=== PATIENT | female | born 1965 | race Caucasian/White ===

== ENCOUNTER 2023-03-13 16:14 | Emergency (ER) | payer OTHER, SELFPAY ==
[2023-03-13 16:20] VITALS: BP 131/83; PULSE 79; RESP 20; TEMP 36.6; O2SAT 99; BMI 21.1
[2023-03-13 16:49] LABS: SARS-CoV-2 Ag NEGATIVE (NEGATIVE)
[2023-03-13 16:50] LABS: Influenza Virus A Antigen Negative; Influenza Virus B Antigen Negative; Internal Control Within Normal Limits
--- NOTE | 2023-03-13 17:25 | ED.GENADUL1 ---
HPI - General Adult General Chief complaint: Upper Respiratory Infection Stated complaint: URTI Time Seen by Provider: 03/13/23 16:34 Source: patient Mode of arrival: walk-in Limitations: no limitations History of Present Illness HPI narrative: Patient with several days of chest congestion following nasal congestion, sore throat, ear fullness and sinus pressure. The patient is a former smoker who has been told that she has early COPD . She is concerned that she has pneumonia - it happens when the infection moves down into my chest. No vomiting or diarrhea. No fever or chills at home. Related Data Previous Rx's Medication Instructions Recorded gdrzqfawtshyrvq-tnqlotudxjiotnq-DL 5 ml PO Q6H PRN sinus symptoms 03/13/23 2 mg-30 mg-10 mg/5 mL oral syrup #118 mL (Bromfed DM) doxycycline hyclate 100 mg capsule 100 mg PO BID 7 days #14 caps 03/13/23 methylprednisolone 4 mg tablets in 4 mg PO DAILY #21 ea 03/13/23 a dose pack (Medrol (Richard)) Allergies Allergy/AdvReac Type Severity Reaction Status Date / Time meperidine [From Demerol] AdvReac Severe Vomiting Verified 03/13/23 16:23 PFSH PFSH Social History Smoking status: Former smoker Exam Narrative Exam Narrative: Nurses notes and vital signs reviewed and patient is not hypoxic. afebrile General: Well-appearing and in no apparent distress. Skin: Warm, dry, no pallor noted. No rash. Head: Normocephalic, atraumatic. Neck: Supple, non-tender. No cervical lymphadenopathy Eye: Pupils are equal, round and EOMI. No scleral icterus. Ears, Nose, Mouth, and Throat: TM are dull bilaterally with retro tympanic fluid, mild posterior oropharynx erythema and nasal mucosal hypertrophy, uvula is mid-line Oral mucosa is moist Cardiovascular: Regular Rate and Rhythm without murmur, gallop or rub. Respiratory: No accessory muscle use or respiratory distress. Lungs with scattered rhonchi but no expiratory wheezes or rails. Neurological: A&O x4. No cranial nerve dysfunction observed. No truncal ataxia. Moves all extremities. Sensation intact. Psychiatric: Cooperative and interactive. Normal mood and affect. Constitutional Vital Signs, click to edit/add: Last Vital Signs Temp 98 F 03/13/23 16:20 Pulse 79 03/13/23 16:20 Resp 20 03/13/23 16:20 BP 131/83 03/13/23 16:20 Pulse Ox 99 03/13/23 16:20 Course Vital Signs Vital signs: Vital Signs Temperature 98 F 03/13/23 16:20 Pulse Rate 79 03/13/23 16:20 Respiratory Rate 20 03/13/23 16:20 Blood Pressure 131/83 03/13/23 16:20 Pulse Oximetry 99 03/13/23 16:20 Temperature 98 F 03/13/23 16:20 Pulse Rate 79 03/13/23 16:20 Respiratory Rate 20 03/13/23 16:20 Blood Pressure 131/83 03/13/23 16:20 Pulse Oximetry 99 03/13/23 16:20 Medical Decision Making MDM Narrative Medical decision making narrative: Swabs were negative for influenza and COVID. She was discharged home with prescriptions for Bromfed-DM, steroid taper and doxycycline, to cover her upper respiratory symptoms and exacerbation of her early COPD/underlying lung disease. Lab Data Lab results reviewed: Yes I reviewed the patient's lab results Labs: Lab Results 03/13/23 Range/Units 16:25 SARS-CoV-2 (PCR) Negative (NEGATIVE) Influenza Type A Ag Negative Influenza Type B Ag Negative Discharge Plan Discharge Chief Complaint: Upper Respiratory Infection Clinical Impression: Upper respiratory infection, Asthma exacerbation in COPD Patient Disposition: Home, Self-Care Time of Disposition Decision: 17:28 Prescriptions / Home Meds: New doxycycline hyclate 100 mg capsule 100 mg PO BID 7 Days Qty: 14 0RF methylprednisolone [Medrol (Richard)] 4 mg tablets,dose pack 4 mg PO DAILY Qty: 21 0RF Rx Instructions: follow instructions on blister pack cvswdimqcjqlkbh-lhupgfdjs-PE [Bromfed DM] 2-30-10 mg/5 mL syrup 5 ml PO Q6H PRN (Reason: sinus symptoms) Qty: 118 0RF Instructions: Upper Respiratory Infection (ED), COPD (Chronic Obstructive Pulmonary Disease) (ED) Stand Alone Forms: Portal Instructions Referrals: SIRI JOHNSON [Primary Care Provider] - 1 week
[2023-03-14 10:20] LABS: SARS-CoV-2 NAA NOT DETECTED (NOT DETECTE)
== END 2023-03-13 17:45 | disposition home or self-care (01) ==
LOC: ER 17:48
PROVIDERS: Emergency Provider Emergency Medicine; PCP Family Medicine
DX: J06.9 Acute upper respiratory infection, unspecified (principal); J44.1 Chronic obstructive pulmonary disease with (acute) exacerbation; Z87.891 Personal history of nicotine dependence; Z20.822 Contact with and (suspected) exposure to COVID-19
CPT/HCPCS: 87635; 87804; 87811; 99284

== ENCOUNTER 2024-09-03 17:32 | Emergency (ER) | payer MEDICARE, MEDICAID, SELFPAY ==
--- OUTSIDE RECORDS SUMMARY | 2021-06-27 06:10 | XMS_ITS | Continuity of Care Document ---
Author [facility] [employer] [facility] Address [address] [place] [address] Phone Care Team Providers Care Food Service Representative Name Role Phone Leatha Chisholm MD, Jonathon Unavailable Unavailab le Allergies, Adverse Reactions, Alerts Substance Reaction Status Criticality No Known Allergies Active No Inform ation Medications Medication Instructions Dosage Effective Dates (start - stop) Status Comments Xarelto 15 mg tablet take 1 tablet by or al route 2 times every day with the evening meal 15 MG - Active oxycodone 10 mg tablet take 1 tablet by oral route every 4 - 6 hours 10 MG - Active amlodipine 5 mg tablet take 1 tablet by oral route every day 5 MG - Active metoprolol succinate ER 25 mg tablet,extended release 24 hr take 1 tablet by oral route every day 25 MG - Active ondansetron 4 mg disintegrating tablet take 2 tablet by oral route every [address] on top of the tongue where they will dissolve, then swallow 8 MG - Active Novolog Flexpen U-100 Insulin aspart 100 unit/mL (3 mL) subcutaneous inject by subcutaneous route per prescriber's instructions. Insulin dosing requires individualization. 0.00 - Active bupropion HCl XL 150 mg 24 hr tablet, extended release take 1 tablet by oral route every day 150 MG - Active fenofibrate 120 mg tablet take 1 tablet by oral route every day 120 MG - Active Procedures Procedure Date OFFICE/OUTPATIENT VISIT, [facility] Advance Directives Directive Yes / No Effective Date File Name No Information Encounters Encounter Description Practice Location Reason(s) For Visit Diagnoses Date Provider Providers Copied on Encounter OFFICE/OUTPAT IENT VISIT, [facility] [employer] [facility], [address] [facility] [place], [place], [id number], tel:[phone] [facility] Post-Op (chief complaint)C omment (chief complaint) 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 [address] [place], [address], [place]. tel:[phone] Referring Provider: [place], [address] [place], [place], [facility]. tel:[phone] Family History Family Member Type Diagnosis Age At Onset No Information Payers Payer name Insurance type Covered alliance party ID Lon caraballo(s) Faisal [id number] Social History Type Description Quantity Date Captured Comments Alcohol Use Details Unknown Caffeine Use Details Unknown Tobacco Use Status Ex-cigarette smoker 022 Smoking Status Former smoker Non-Smoking Tobacco Use Details : No Details Available : No Details Available Sex Female Vital Signs Date / Time: Height Weight [...] and fever. Additional information: had surgery in [place] beginning of May, stent occluded, tPA administered and started on Xarelto. Comment (chief complaint). Description: This is a 55-year-old female who was recently seen and evaluated at [facility]. She underwent stenting of her left SFA and had postoperative thrombosisrequiring thrombolytics therapy. Even after that episode she continued to have significant pain in her left leg and came to [facility]. They obtained a CT scan at that [...] who was recently seen and evaluated at [facility]. She underwent stenting of her left SFA and had postoperative thrombosis requiring thrombolytics therapy. Even after that episode she continued to have significant pain in her left leg and came to [facility]. They obtained a CT scan at that [...] and fever. Additional information: had surgery in [place] beginning of May, stent occluded, tPA administered and started on Xarelto. Functional Status Date Functional Assessmen t Pain Score 10/10 Instructions Date Instruction Additional Infor betty No Information Assessments Type Assessment Date assessment Atherosclerosis of n ative artery of left lower extremity with gangrene impression I am recommending th at she get to admitted to the hospital for further evaluation and plan for a femoral popliteal bypass prior to her discharge. Mental Status Date Cognitive Assessment Orientation - [place] ed to time, place, person, situation. Patient Care Teams Name Effective Dates (start - stop) Status Members No Information
--- OUTSIDE RECORDS SUMMARY | 2024-04-16 09:00 | XMS_ITS ---
Author Organization [facility] Address [address] [place] [address] Care Team Providers Care Nursing Scheduler Name Role Phone Valerie Munoz Primary Care Provider [phone] Sameer Gomez Unavailable [phone] REASON FOR VISIT 3 month f/u Encounters Encounter Location Date Provider Diagnosis [facility] [address] [place] [address] 04/16/2024 Valerie Munoz Plan Of Treatment Next Appt Details Provider Name:Valerie Munoz, 09/15/2024 09:30:00 AM, [address] [place], [address], Provider Name:Sameer garcia, 10/17/2024 01:30:00 PM, [address], [place], [address], Provider Name:Negrita Waters, 01/05/2025 03:30:00 PM, [address], [place], [address], Progress Notes * KHRIS LADD ADOB:[birth year] (58 yo F)Acc No.[id number]:04/16/2024 Behavioral Health Patient: KHRIS WALTER Appointment Provider: Reji Munoz :1965 A ge:58 Y S ex:Female Date:04/16/2024 [address] [id number] Subjective: * Chief Complaints: * 1 . 3 month f/u. * Medical History: Objective: * Vitals: Assessment: Plan: * Treatment: * Images: * Electronic signature of KASIA Harris FNP on 09/03/2024 at 05:37 PM EDT Sign off status: Pending * Appointment Provider: Reji Munoz Date: 0 04/16/2024 Generated for Tenzin queen/Anil/Wilbert on: 0 09/03/2024 05:37 PM EDT
--- OUTSIDE RECORDS SUMMARY | 2024-08-19 13:17 | XMS_ITS | Encounter Summary ---
Author Organization [employer] tem Address [facility] [id number] [address] 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, left leg Procedures Vas art duplex lwr graft scan left Alonso Pizano MD [address] [place] [address] Phone: tel: fax: Referral ID Status Reason Start Date Expiration Date Visits Re quested Visits Authorized [id number] Closed 01/11/2024 01/10/2025 1 1 Reason for Visit * Vascular (Routine) - Closed Specialty Diagnoses / Procedures Referred By Contac t Referred To Contact Diagnoses Critical limb ischemia with history of revascularization of same extremity ([facility]) 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, left leg Procedures Vas art duplex lwr graft scan left Alonso Pizano MD [address] [place] [address] Phone: tel: fax: Referral ID Status Reason Start Date Expiration Date Visits Re quested Visits Authorized [id number] Closed 01/11/2024 01/10/2025 1 1 Encounter Details Date Type Department Care Team (Latest Contact Info) Description 08/19/2024 1:17 PM EDT - 08/19/2024 11:59 PM EDT Hospital Encounter [facility] - Vascular [address] [place] [address] Critical limb ischemia with history of revascularization of same extremity ([facility]); 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 Never True 08/19/2024 Within the past 12 months th e food we bought just didn't last and we didn't have money to get more. Never True 08/19/2024 Comments No Sex and Gender Information Value Date Recorded Sex Assigned at Not on file Legal Sex Female 12:13 PM EDT Gender Identity Not on file Sexual Orientation Not on file documented as of this encounter Medications at Time of Discharge acetaminophen (TYLENOL EXTRA STRENGTH) 500 mg tablet Take 2 tablets (1,000 mg total) by mouth every 6 (six) hours as needed for pain. 30 tablet 2 albuterol (ACCUNEB) 0.63 mg/3 mL nebulizer solution 3 mL (0.63 mg total). AMLODIPINE BESYLATE, BULK, MISC Apply 10 mg to the mouth or throat in the morning. amoxicillin-pot clavulanate (AUGMENTIN) 875-125 mg per tablet Take 1 tablet by mouth every 12 (twelve) hours. 2 aspirin 81 mg chewable tablet CHEW AND SWALLOW 1 TABLET IN THE MORNING 90 tablet 1 4 buPROPion XL (WELLBUTRIN XL) 150 mg 24 hr tablet Take 1 tablet (150 mg total) by mouth. cholecalciferol, vitamin D3, 2,000 units capsule Take 1 capsule (2,000 Units total) by mouth in the morning. cilostazoL (PLETAL) 100 mg tablet Take 1 tablet (100 mg total) by mouth in the morning and 1 tablet (100 mg total) before bedtime. 2 cilostazoL (PLETAL) 50 mg tabletIndications:Keira pheral arterial disease Take 1 tablet (50 mg total) by mouth in the morning and 1 tablet (50 mg total) before bedtime. 60 tablet 3 5 clopidogreL (PLAVIX) 75 mg tabletIndications:Crit ical limb ischemia with history of revascularization of same extremity ([facility]) TAKE 1 TABLET (75 MG TOTAL) BY MOUTH IN THE MORNING 90 tablet 1 5 cyclobenzaprine (FLEXERIL) 10 mg tablet Take 1 tablet (10 mg total) by mouth in the morning and 1 tablet (10 mg total) at noon and 1 tablet (10 mg total) before bedtime. 30 tablet 2 fenofibrate (FENOGLIDE) 120 MG tablet Take by mouth daily. fenofibrate (TRICOR) 145 mg tablet Take 1 tablet (145 mg total) by mouth. fluconazole (DIFLUCAN) 150 mg tablet Take 1 tablet (150 mg total) by mouth once. 2 gabapentin (NEURONTIN) 100 mg capsuleIndications:Cornel ralgia Take 1 capsule (100 mg total) by mouth in the morning and 1 capsule (100 mg total) at noon and 1 capsule (100 mg total) before bedtime. 60 capsule 2 2 ibuprofen (ADVIL,MOTRIN) 600 mg tabletIndications:Post -op pain Take 1 tablet (600 mg total) by mouth every 8 (eight) hours as needed for pain. 30 tablet 2 insulin aspart U-100 (NovoLOG) 100 unit/mL (3 mL) insulin pen Inject under the skin. LORazepam (ATIVAN) 0.5 mg tablet Take 1 tablet (0.5 mg total) by mouth nightly. 2 losartan (COZAAR) 100 mg tablet Take 1 tablet (100 mg total) by mouth in the morning. 2 meloxicam (MOBIC) 15 mg tablet Take 1 tablet (15 mg total) by mouth in the morning. 2 metoprolol succinate XL (TOPROL XL) 25 mg 24 hr tablet Take by mouth daily. metoprolol tartrate (LOPRESSOR) 25 mg tablet Take 0.5 tablets (12.5 mg total) by mouth. naloxone (NARCAN) 4 mg/actuation spray,non-aerosol nasal spray Administer 1 spray (4 mg total) into alternating nostrils as needed for opioid reversal. 1 each 2 naproxen (NAPROSYN) 500 mg tablet Take 500 mg by mouth in the morning and 500 mg before bedtime. 2 NIFEdipine XL (PROCARDIA XL) 30 mg 24 hr tablet Take 1 tablet (30 mg total) by mouth in the morning. 2 nitroglycerin (NITRO-BID) 2 % ointment Place 0.5 inches on the skin. 2 ondansetron ODT (ZOFRAN ODT) 4 mg disintegrating tablet Dissolve on tongue every 12 (twelve) hours. PRALUENT PEN 75 mg/mL pen injector 3 pravastatin (PRAVACHOL) 10 mg tablet Take 10 mg by mouth in the morning. 2 rosuvastatin (CRESTOR) 40 mg tablet Take 1 tablet (40 mg total) by mouth in the morning. 2 sulfamethoxazole-trime thoprim (BACTRIM DS) 800-160 mg per tablet Take 1 tablet by mouth in the morning and 1 tablet before bedtime. 2 varenicline (CHANTIX) 0.5 mg tablet Take 1 tablet (0.5 mg total) by mouth in the morning and 1 tablet (0.5 mg total) before bedtime. documented as of this encounter Plan of Treatment Upcoming Encounters Date Type Department Care Team (Late st Contact Info) Description 09/30/2024 11:30 AM EDT [facility] [address] [place] [address] Alonso Pizano MD [address] [place] [address] 08/19/2025 1:00 PM EDT Appointment [facility] - Vascular [address] [place] [address] Alonso Pizano MD [address] [place] [address] 08/19/2025 2:00 PM EDT Appointment [facility] - Vascular [address] [place] [address] Alonso Pizano MD [address] [place] [address] 09/01/2025 2:00 PM EDT Office Visit [facility] Vascular [address] [place] [address] Alonso Pizano MD [address] [place] [address] documented as of this encounter Goals Goal Patient Goal Type Associated Problems Recent Progress Patient-Stated? 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 Previous lower extremity bypass graft duplex exam performed: 12/07/2023 Spectral waveforms with diastolic flow reversal and no significant color flow disturbance noted throughout the bypass graft. Left: Spectral waveforms with diastolic flow reversal and no significant color flow disturbance noted throughout the bypass graft. Conclusions: LEFT: Lower extremity bypass graft without significant stenosis. Recommendations: Any questions prior to finalization, please call the reading physician during normal business hours at the phone number beside their name. When compared to previous report no significant changes were noted. Procedure Note Rob Briones MD - 08/20/2024 Previous: History of left femoral to popliteal arteyr bypass graft07/14/2021. Previous lower extremity bypass graft duplex exam performed:12/07/2023 Spectral waveforms with diastolic flow reversal and nosignificant color flow disturbance noted throughout the bypass graft. Left: Spectral waveforms with diastolic flow reversal and no significantcolor flow disturbance noted throughout the bypass graft. Conclusions: LEFT: Lower extremity bypass graft without significantstenosis. Recommendations: Any questions prior to finalization, please call thereading physician during normal business hours at the phone number besidetheir name. When compared to previous report no significant changes werenoted. 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
--- OUTSIDE RECORDS SUMMARY | 2024-08-29 14:37 | XMS_ITS | Encounter Summary ---
Author Organization [employer] tem Address [id number] [address] [place] [address] Care Team Providers Care Piece Maker Name Role Phone Chato Bradshaw Primary Care Provider [phone] Reason for Referral * Diagnostic Imaging (Emergency) - Closed Specialty Diagnoses / Procedures Referred By Ponchoac t Referred To Contact Radiology Diagnoses Critical limb ischemia with history of revascularization of same extremity ([facility]) Procedures CT angiogram abdominal aorta with runoff Alonso Pizano MD [address] [place] [address] Phone: tel: fax: Referral ID Status Reason Start Date Expiration Date Visits Re quested Visits Authorized [id number] Closed 08/19/2024 08/19/2025 1 1 Reason for Visit * Diagnostic Imaging (Emergency) - Closed Specialty Diagnoses / Procedures Referred By Contac t Referred To Contact Radiology Diagnoses Critical limb ischemia with history of revascularization of same extremity ([facility]) Procedures CT angiogram abdominal aorta with runoff Alonso Pizano MD [address] [place] [address] Phone: tel: fax: Referral ID Status Reason Start Date Expiration Date Visits Re quested Visits Authorized [id number] Closed 08/19/2024 08/19/2025 1 1 Encounter Details Date Type Department Care Team (Latest Contact Info) Description 08/29/2024 2:37 PM EDT - 08/29/2024 11:59 PM EDT Hospital Encounter [facility] - CT Imaging [address] [place] [address] Alonso Pizano MD [address] [place] [address] Critical limb ischemia with history of revascularization of same extremity ([facility]) Discharge Disposition: Home Social History Tobacco Use [...] with history of revascularization of same extremity ([facility]) TAKE 1 TABLET (75 MG TOTAL) [...] Description 09/30/2024 11:30 AM EDT Office Visit [facility] [address] [place] [address] Alonso Pizano MD [address] [place] [address] 08/19/2025 1:00 PM EDT Appointment [facility] - Vascular [address] [place] [address] Alonso Pizano MD [address] [place] [address] 08/19/2025 2:00 PM EDT Appointment [facility] - Vascular [address] [facility] [address] Alonso Pizano MD [address] [place] [address] 09/01/2025 2:00 PM EDT Office Visit [facility] Vascular [address] [place] [address] Alonso Pizano MD [address] [place] [address] documented as of this encounter Goals Goal Patient Goal Type Associated Problems Recent Progress Patient-Stated? Author Home General Yes Gisela Woody, RAILROAD PASSENGER AGENT Note: Evaluation of progress towards goal: Discharge home with family support/ self care documented as of this encounter Procedures Procedure Name Priority Date/Time Associated Diagnosis Comments CT CTA ABD AORTA W RUNOFF STAT 08/29/2024 4:05 PM EDT Critical limb ischemia with history of revascularization of same extremity ([facility]) documented in this encounter Results * CT angiogram abdominal aorta with runoff (08/29/2024 4:05 PM EDT) Anatomical Region Laterality Modality Body, Abdomen, Body Covera N/A Compu james Tomography 08/30/2024 12:3 8 PM EDT Narrative 08/30/2024 12:[address] CTA ABD AORTA W RUNOFF Clinical information: Critical limb ischemia with history of revascularization of same extremity ([facility]). Peripheral arterial disease. Limb ischemia. Comparison: 06/27/2021 PROCEDURE: CT angiogram of the abdomen and pelvis with runoff through the feet bilaterally. CT angiogram images obtained with IV contrast. Cross-sectional 3-D maximum intensity projection reformats constructed under concurrent physician supervision on a independent workstation for evaluation of arterial structures. All CT scans at this facility use dose modulation, iterative reconstruction, and/or weight based dosing when appropriate to reduce radiation dose to as low as reasonably achievable. FINDINGS: Vascular findings: Abdominal aorta: No aneurysm or dissection. Moderate atherosclerotic plaque predominantly at the infrarenal abdominal aorta. Celiac: Mild atherosclerotic plaque at the ostium, otherwise unremarkable. SMA: Within normal limits. Renal arteries: Mild beaded appearance of the proximal bilateral renal arteries with mild stenosis. No dissection. SAMUEL: Occluded at the ostium. Distal SAMUEL territory is opacified via collaterals. Common iliac arteries: Atherosclerotic plaque with moderate stenosis bilaterally. Internal iliac arteries: Mild scattered atherosclerotic plaque. Right lower extremity: The extraluminal iliac and common femoral arteries are patent with mild to moderate atherosclerotic plaque. Normal profunda SFA bifurcation. There is moderate stenosis at the right SFA. Moderate multifocal atherosclerotic plaque throughout the right SFA. Right popliteal artery is within normal limits. Normal three-vessel anterior tibial, posterior tibial, and peroneal runoff to the right foot. Left lower extremity: The external iliac and common femoral arteries are patent with moderate stenosis. Profundofemoral is patent. The [place] left SFA is chronically occluded. There is a left common femoral artery to popliteal artery bypass which is patent. There is asymmetric delayed opacification of the left popliteal and tibial arteries compared to the right. There is no significant upstream stenosis and this is presumably secondary to delayed flow of contrast through the bypass conduit. The left popliteal is within normal limits. Normal three-vessel runoff to the left foot via the anterior tibial, posterior tibial, and peroneal arteries. Other findings: Lung bases are clear. The liver and gallbladder are unremarkable. No biliary dilatation. The pancreas, spleen, and adrenal glands are unremarkable. The kidneys enhance symmetrically. No hydronephrosis or ureteral obstruction. Urinary bladder contour is unremarkable. No intra-abdominal free air or free fluid. No small bowel obstruction. Mild sigmoid diverticulosis. No acute findings in the colon. IVC is right-sided. No acute osseous abnormalities. IMPRESSION: 1. No acute findings. 2. Left-sided common femoral to popliteal artery bypass is patent. 3. Normal three-vessel runoff to the feet bilaterally. 4. Atherosclerotic plaque causing moderate stenosis of the bilateral common iliac arteries. 5. Moderate atherosclerotic plaque throughout the right SFA with focal moderate stenosis at the ostium of the right SFA. 6. Subtle beaded appearance of the proximal bilateral renal arteries likely secondary to FMD. No dissection or significant stenosis. 7. Detailed vascular and chronic findings as above. Finalized by Mark Gillis MD on 08/30/2024 12:49 PM Procedure Note Mark Gillis MD - 08/30/2024 CT CTA ABD AORTA W RUNOFF Clinical information: Critical limb ischemia with history ofrevascularization of same extremity ([facility]). Peripheral arterialdisease. Limb ischemia. Comparison: 06/27/2021 PROCEDURE: CT angiogram of the abdomen and pelvis with runoff through thefeet bilaterally. CT angiogram images obtained with IV contrast.Cross-sectional 3-D maximum intensity projection reformats constructedunder concurrent physician supervision on a independent workstation forevaluation of arterial structures. All CT scans at this facility use dose modulation,iterative reconstruction, and/or weight based dosing when appropriate toreduce radiation dose to as low as reasonably achievable. FINDINGS: Vascular findings: Abdominal aorta: No aneurysm or dissection. Moderate atheroscleroticplaque predominantly at the infrarenal abdominal aorta. Celiac: Mild atherosclerotic plaque at the ostium, otherwiseunremarkable. SMA: Within normal limits. Renal arteries: Mild beaded appearance of the proximal bilateral renalarteries with mild stenosis. No dissection. SAMUEL: Occluded at the ostium. Distal SAMUEL territory is opacified viacollaterals. Common iliac arteries: Atherosclerotic plaque with moderate stenosisbilaterally. Internal iliac arteries: Mild scattered atherosclerotic plaque. Right lower extremity: The extraluminal iliac and common femoral arteriesare patent with mild to moderate atherosclerotic plaque. Normal profundaSFA bifurcation. There is moderate stenosis at the right SFA. Moderatemultifocal atherosclerotic plaque throughout the right SFA. Rightpopliteal artery is within normal limits. Normal three-vessel anterior tibial, posteriortibial, and peroneal runoff to the right foot. Left lower extremity: The external iliac and common femoral arteries arepatent with moderate stenosis. Profundofemoral is patent. The [place] leftSFA is chronically occluded. There is a left common femoral artery topopliteal artery bypass which is patent. There is asymmetric delayedopacification of the left popliteal and tibial arteries compared to the right. There isno significant upstream stenosis and this is presumably secondary todelayed flow of contrast through the bypass conduit. The left popliteal iswithin normal limits. Normal three-vessel runoff to the left foot via theanterior tibial, posterior tibial, and peroneal arteries. Other findings: Lung bases are clear. The liver and gallbladder are unremarkable. No biliary dilatation. The pancreas, spleen, and adrenal glands are unremarkable. The kidneys enhance symmetrically. No hydronephrosis or ureteralobstruction. Urinary bladder contour is unremarkable. No intra-abdominalfree air or free fluid. No small bowel obstruction. Mild sigmoiddiverticulosis. No acute findings in the colon. IVC is right-sided. Noacute osseous abnormalities. IMPRESSION: 1. No acute findings. 2. Left-sided common femoral to popliteal artery bypass is patent. 3. Normal three-vessel runoff to the feet bilaterally. 4. Atherosclerotic plaque causing moderate stenosis of the bilateralcommon iliac arteries. 5. Moderate atherosclerotic plaque throughout the right SFA with focalmoderate stenosis at the ostium of the right SFA. 6. Subtle beaded appearance of the proximal bilateral renal arterieslikely secondary to FMD. No dissection or significant stenosis. 7. Detailed vascular and chronic findings as above. Finalized by Mark Gillis MD on 08/30/2024 12:49 PM Alonso Pizano MD IMG CT ORDERABLES Final Result documented in this encounter Visit Diagnoses Diagnosis Critical limb ischemia with history of revascularization of same extremity ([facility]) documented in this encounter Administered Medications Inactive Administered Medications - up to 3 most recent administrations Medication Order MAR Action Action Date Dose Rate Site iohexoL (OMNIPAQUE) 350 mg iodine/mL injection 100 mL 100 mL, intravenous, Once in imaging, contrast, Starting on Sun08/29/24 at 1530, For 1 dose, VESICANT (RED) Given 08/29/2024 3:44 PM EDT 100 mL sodium chloride 0.9 % flush 10 mL 10 mL, intravenous, As needed, line care, Starting on Sun08/29/24 at 1530 Given 08/29/2024 3:43 PM EDT 10 mL sodium chloride 0.9 % radiology injection 80 mL, intravenous, Once in imaging, pre/post contrast, Starting on Sun08/29/24 at 1530, For 1 dose Given 08/29/2024 3:43 PM EDT 80 mL documented in this encounter Care Teams Piece Maker Relationship Specialty Start Date End Date Chato Bradshaw DO PCP - General Family Medicine 07/07/21 documented as of this encounter
[2024-09-03] VITALS (8 sets, daily range): BP systolic 154–180; BP diastolic 90–105; PULSE 86–94; TEMP 36.6; O2SAT 99–100; BMI 21.1
--- OUTSIDE RECORDS SUMMARY | 2024-09-03 17:37 | XMS_ITS | Encounter Summary ---
Author Organization [facility] [employer] Address [id number] [address] [place] [address] Care Team Providers Care Boat Carpenter Mechanic Name Role Phone Chato Bradshaw DO Primary Care Provider [phone] Encounter Details Date Type Department Care Team (Late st Contact Info) Description 07/08/2021 Telephone [facility] [address] [place] [address] Leander Tang MD [address] Left practice 12/28/23 [place] [address] Social History Tobacco Use Types Packs/Day Years Used Date Smoking Tobacco: Former Smokeless Tobacco: Never Alcohol Use Standard Drinks/Week Comments Yes 0 (1 standard drink = 0.6 oz pur e alcohol) social Childcare Answer Date Recorded Childcare Unknown 08/28/2018 Employment Answer Date Recorded Employment Unknown 08/28/2018 Comments Unknown Sex and Gender Information Value Date Recorded Sex Assigned at Not on file Legal Sex Female 12:13 PM EDT Gender Identity Not on file Sexual Orientation Not on file COVID-19 Exposure Response Date Recorded In the last 10 days, have yo u been in contact with someone who was confirmed or suspected to have Coronavirus/COVID-19? No / Unsure 07/08/2021 11:03 PM EDT documented as of this encounter Functional Status documented as of this encounter Miscellaneous Notes * Telephone Encounter - Roxane Donaldson - 07/08/2021 2:31 PM EDT Received a call from Annalise at [facility] that Dr Tang may want to review today's testing. documented in this encounter Plan of Treatment Upcoming Encounters Date Type Department Care Team (Late st Contact Info) Description 09/30/2024 11:30 AM EDT [facility] Visit [facility] [address] [place] [address] Alonso Pizano MD [address] [place] [address] 08/19/2025 1:00 PM EDT Appointment [facility] - Vascular [address] [place] [address] Alonso Pizano MD [address] [place] [address] 08/19/2025 2:00 PM EDT Appointment [facility] - Vascular [address] [place] [address] Alonso Pizano MD [address] [place] [address] 09/01/2025 2:00 PM EDT Office Visit [facility] [address] [place] [address] Alonso Pizano MD [address] [place] [address] documented as of this encounter Visit Diagnoses Not on filedocumented in this encounter Care Teams Boat Carpenter Mechanic Relationship Specialty Start Date End Date Chato Bradshaw DO PCP - General Family Medicine 07/07/21 documented as of this encounter
--- OUTSIDE RECORDS SUMMARY | 2024-09-03 17:37 | XMS_ITS | Encounter Summary ---
Author Organization [employer] tem Address [facility] [place]-[id number] [address] [place] [address] Care Team Providers Care Feller Buncher Operator Name Role Phone Chato Bradshaw DO Primary Care Provider [phone] Encounter Details Date Type Department Care Team (Late Contact Info) Description 07/07/2021 Orders Only [facility] [address] [place] [address] Ref Prov, [place] [address] Social History Tobacco Use Types Packs/Day Years Used Date Smoking Tobacco: Never Assessed Childcare Answer Date Recorded Childcare Unknown 08/28/2018 [...] Functional Status documented as of this encounter Plan of Treatment Upcoming Encounters Date Type Department Care Team (Late Contact Info) Description 09/30/2024 11:30 AM EDT Office Visit [facility] [address] [place] [address] Alonso Pizano MD [address] [place] [address] 08/19/2025 1:[address] [facility] - Vascular [address] [place] [address] Alonso Pizano MD [address] [place] [address] 08/19/2025 2:[address] [facility] - Vascular [address] [place] [address] Alonso Pizano MD [address] [place] [address] 09/01/2025 2:00 PM EDT Office Visit [facility] [address] [place] [address] Alonso Pizano MD [address] [place] [address] documented as of this encounter Procedures Procedure Name Priority Date/Time Associated Diagnosis Comments XR CHEST 2 VWS Routine 07/07/2021 documented in this encounter Results * X-ray chest 2 views (07/07/2021) Anatomical Region Laterality Modality Body, Chest N/A Computed Radiogr aphy us Not In System Ref Prov IMG DIAGNOSTIC IMAGING OR DERABLES Final Result documented in this encounter Visit Diagnoses Not on filedocumented in this encounter Care Teams Feller Buncher Operator Relationship Specialty Start Date End Date Chato Bradshaw DO PCP - General Family Medicine 07/07/21 documented as of this encounter
--- OUTSIDE RECORDS SUMMARY | 2024-09-03 17:38 | XMS_ITS | Encounter Summary ---
Author Organization [facility] [employer] Sys tem Address [id number] [address] [place] [address] Care Team Providers Care Director Business Integration Name Role Phone Chato Bradshaw DO Primary Care Provider [phone] Encounter Details Date Type Department Care Team (Late st Contact Info) Description 09/01/2024 Telephone [facility] [address] [place] [address] Alonso Pizano MD [address] [place] [address] Social History Tobacco Use Types Packs/Day Years [...] on file documented as of this encounter Miscellaneous Notes * Telephone Encounter - Dedra Seng - 09/01/2024 1:48 PM EDT Patient is calling to cancel/reschedule upcoming appointment Date of original appointment: 09/02/24 Time of original appointment: 3:00pm New appointment date: 09/30/24 New appointment time: 11:30am Reason for cancel/reschedule: Patient is requesting to reschedule due to having an eye appt tomorrow Thank you. documented in this encounter Plan of Treatment Upcoming Encounters Date Type Department Care Team (Late st Contact Info) Description 09/30/2024 11:30 AM EDT Office Visit [facility] [address] [place] [address] Alonso Pizano MD [address] [place] [address] 08/19/2025 1:00 PM EDT Appointment [facility] [address] [place] [address] Alonso Pizano MD [address] [place] [address] 08/19/2025 2:00 PM EDT Appointment [facility] [address] [place] [address] Alonso Pizano MD [address] [place] [address] 09/01/2025 2:00 PM EDT Office Visit [facility] Vascular [address] [place] [address] Alonso Pizano MD [address] [place] [address] documented as of this encounter Goals Goal Patient Goal Type Associated Problems Recent Progress Patient-Stated? Author Home General Yes Gisela Woody, NUTRITIONAL SERVICES HOST Note: Evaluation of progress towards goal: Discharge home with family support/ self care documented as of this encounter Visit Diagnoses Not on filedocumented in this encounter Care Teams Director Business Integration Relationship Specialty Start Date End Date Chato Bradshaw DO PCP - General Family Medicine 07/07/21 documented as of this encounter
--- OUTSIDE RECORDS SUMMARY | 2024-09-03 17:38 | XMS_ITS | Encounter Summary ---
Author Organization [facility] Address [address] [facility] [place] [address] Care Team Providers Care Preservative Filler Machine Operator Name Role Phone Chato Bradshaw MD Primary Care Provider Encounter Details Date Type Department Care Team (Late st Contact Info) Description 08/27/2022 Abstract [facility] [address] [facility] [address] [place] [address] Lonnie Major MD [address] [facility] [address] [place] [address] Social History Tobacco Use Types Packs/Day Years Used Date Smoking Tobacco: Every Day Cigarettes Alcohol Use Standard Drinks/Week Comments Not Currently 0 (1 standard drink = 0.6 oz pur e alcohol) Comments Unknown Sex and Gender Information Value Date Recorded Sex Assigned at Not on file Legal Sex Female 7:23 PM EDT Gender Identity Not on file Sexual Orientation Not on file documented as of this encounter Plan of Treatment Not on file documented as of this encounter Visit Diagnoses Not on filedocumented in this encounter Care Teams Preservative Filler Machine Operator Relationship Specialty Start Date End Date Chato Bradshaw MD [address] [place] [address] PCP - General Pediatrics 08/28/22 documented as of this encounter
--- OUTSIDE RECORDS SUMMARY | 2024-09-03 17:38 | XMS_ITS | Encounter Summary ---
Author Organization [facility] [employer] [facility] tem Address [id number] [address] [place] [address] Care Team Providers Care Freight Broker Name Role Phone Chato Bradshaw DO Primary Care Provider [phone] Encounter Details Date Type Department Care Team (Late Contact Info) Description 07/03/2024 Telephone [facility] [address] [place] [address] Christina Coreas CMA Social History Tobacco Use Types Packs/Day Years Used Date Smoking Tobacco: Former Smokeless Tobacco: Never Alcohol Use Standard Drinks/Week Comments Yes 0 (1 standard drink = 0.6 oz pur e alcohol) social Childcare Answer Date Recorded Childcare Unknown 08/28/2018 Employment Answer Date Recorded Employment Unknown 08/28/2018 Comments No Sex and Gender Information Value Date Recorded Sex Assigned at Not on file Legal Sex Female 12:13 PM EDT Gender Identity Not on file Sexual Orientation Not on file documented as of this encounter Plan of Treatment Upcoming Encounters Date Type Department Care Team (Late Contact Info) Description 09/30/2024 11:30 AM EDT Office Visit [facility] [address] [place] [address] Alonso Pizano MD [address] [place] [address] 08/19/2025 1:00 PM EDT Appointment [facility] - Vascular [address] [place] [address] Alonso Pizano MD [address] [place] [address] 08/19/2025 2:00 PM EDT Appointment [facility] - Vascular [address] [place] [address] Alonso Pizano MD [address] [place] [address] 09/01/2025 2:00 PM EDT Office Visit [facility] [address] [place] [address] Alonso Pizano MD [address] [place] [address] documented as of this encounter Goals Goal Patient Goal Type Associated Problems Recent Progress Patient-Stated? Author Home General Yes Gisela Woody, SUSTAINABILITY ANALYST Note: Evaluation of progress towards goal: Discharge home with family support/ self care documented as of this encounter Visit Diagnoses Not on filedocumented in this encounter Care Teams Freight Broker Relationship Specialty Start Date End Date Chato Bradshaw DO PCP - General Family Medicine 07/07/21 documented as of this encounter
--- OUTSIDE RECORDS SUMMARY | 2024-09-03 17:38 | XMS_ITS | Encounter Summary ---
Author Organization [facility] Address [address] [place] [address] Care Team Providers Care Business Analyst Project Manager Name Role Phone Chato Bradshaw DO Primary Care Provider [phone] Reason for Visit * Reason Comments Medication Refill Encounter Details Date Type Department Care Team (Late st Contact Info) Description 08/25/2024 Refill [facility] Primary Care [address] [place] [address] Chato Bradshaw DO [address] [place] [address] Medication Refill Social History Tobacco Use Types Packs/Day Years Used Date Smoking Tobacco: Former Cigarettes 1 36 1 986 - 2 Smokeless Tobacco: Never Alcohol Use Standard Drinks/Week Comments Yes 3 (1 standard drink = 0.6 oz pur e alcohol) Couple times a week [facility] Utilities Answer Date Recorded In the past 12 months has [employer], gas, oil, or water [employer] threatened to shut off services in your home? No 05/29/2024 AUDIT-C Answer Date Recorded Q1: How often do you have a drink containing alc ohol? 2-4 times a month 07/18/2024 Q2: How many drinks containi ng alcohol do you have on a typical day when you are drinking? 1 or 2 07/18/2024 Q3: How often do you have si x or more drinks on one occasion? Never 07/18/2024 Overall Financial Resource Strain (CARDIA) Answe r Date Recorded How hard is it for you to pa y for the very basics like food, housing, medical care, and heating? Not hard at all 12/27/2022 PHQ-2 Answer Date Recorded PHQ-9 Total Score 0 07/18/2024 Exercise Vital Sign Answer Date Recorde d On average, how many days pe r week do you engage in moderate to strenuous exercise (like a brisk walk)? 0 days 07/18/2024 On average, how many minutes do you engage in exercise at this level? 0 min 07/18/2024 Hunger Vital Sign Answer Date Recorded Within the past 12 months, y ou worried that your food would run out before you got the money to buy more. Never true 05/30/19 25 Within the past 12 months, t he food you bought just didn't last and you didn't have money to get more. Never true 05/29/2024 PRAPARE - Transportation Answer Date Re corded In the past 12 months, has l ack of transportation kept you from medical appointments or from getting medications? No 05/17 In the past 12 months, has l ack of transportation kept you from meetings, work, or from getting things needed for daily living? No 05/29/2024 Housing Stability Vital Sign Answer Maurice e Recorded Unable to Pay for Housing in the Last Year Not o n file 12/27/2022 Number of Places Lived in the Last Year Not on f ile 12/27/2022 In the last 12 months, was t here a time when you did not have a steady place to sleep or slept in a half-way (including now)? No 12/27/2022 Housing Stability Vital Sign Answer Maurice e Recorded In the last 12 months, was t here a time when you were not able to pay the mortgage or rent on time? No 05/29/2024 In the past 12 months, how m any times have you moved where you were living? 0 05/29/2024 At any time in the past 12 m [facility], were you homeless or living in a half-way (including now)? No 05/29/2024 Food Insecurity Answer Date Recorded Within the past 12 months, y ou worried that your food would run out before you got the money to buy more. 1 05/29/2024 Within the past 12 months, t he food you bought just didn't last and you didn't have money to get more. 1 05/29/2024 Comments No Sex and Gender Information Value Date Recorded Sex Assigned at Not on file Legal Sex Female 2:36 PM EST Gender Identity Not on file Sexual Orientation Not on file documented as of this encounter Plan of Treatment Upcoming Encounters Date Type Department Care Team (Late st Contact Info) Description 12/01/2024 2:15 PM EDT Office Visit [facility] Primary Care [address] [place] [address] Chato Bradshaw DO [address] [place] [address] 6 months & AWV documented as of this encounter Visit Diagnoses Diagnosis Hormone imbalance Unspecified endocrine disorder documented in this encounter Additional Health Concerns Assessment Noted Time A fall risk assessment has been complete d for the patient 07/18/2024 1:11 PM EDT documented as of this encounter Care Teams Business Analyst Project Manager Relationship Specialty Start Date End Date Chato Bradshaw DO PCP - General Family Medicine 06/21/21 documented as of this encounter
--- OUTSIDE RECORDS SUMMARY | 2024-09-03 17:38 | XMS_ITS | Encounter Summary ---
Author Organization [facility] Address [address] [place] [address] Care Team Providers Care Manager Audit Name Role Phone Chato Bradshaw DO Primary Care Provider [phone] Reason for Visit * Reason Comments Medication Refill Encounter Details Date Type Department Care Team (Late st Contact Info) Description 08/20/2024 Refill [facility] Primary Care [address] [place] [address] Chato Bradshaw DO [address] [place] [address] Medication Refill Social History Tobacco Use Types Packs/Day Years Used Date Smoking Tobacco: Former Cigarettes 1 36 1 986 - 2 Smokeless Tobacco: Never Alcohol Use Standard Drinks/Week Comments Yes 3 (1 standard drink = 0.6 oz pur e alcohol) Couple times a week [facility] Utilities Answer Date Recorded In the past 12 months has [employer], gas, oil, or water [employer] threatened to shut off services in your [...] place to sleep or slept in a long-term (including now)? No 12/27/2022 Housing Stability Vital Sign Answer Maurice e Recorded In the last 12 months, was t here a time when you were not able to pay the mortgage or rent on time? No 05/29/2024 In the past 12 months, how m any times have you moved where you were living? 0 05/29/2024 At any time in the past 12 m [facility], were you homeless or living in a long-term (including now)? No 05/29/2024 Food Insecurity Answer [...] Description 12/01/2024 2:15 PM EDT Office Visit [facility] Primary Care [address] [place] [address] Chato Bradshaw DO [address] [place] [address] 6 months & AWV documented as of this encounter Visit Diagnoses Not on filedocumented in this encounter Additional Health Concerns Assessment Noted Time A fall risk assessment has been complete d for the patient 07/18/2024 1:11 PM EDT documented as of this encounter Care Teams Manager Audit Relationship Specialty Start Date End Date Chato Bradshaw DO PCP - General Family Medicine 06/21/21 documented as of this encounter
--- OUTSIDE RECORDS SUMMARY | 2024-09-03 17:38 | XMS_ITS | Clinical Summary ---
Author Organization [employer] tem Address [id number] [address] [place] [address] Care Team Providers Care Missing Persons Investigator Name Role Phone Chato Bradshaw DO Primary Care Provider [phone] Allergies Active Allergy Reactions Criticality Noted Date Comments Latex, Natural Rubber Hives,Itching,Rash High 2021 Meperidine Nausea And Vomiting Medium 06/28/2021 Medications AMLODIPINE BESYLATE, BULK, MISC Apply 10 mg to the mouth or throat in the morning. Active albuterol (ACCUNEB) 0.63 mg/3 mL nebulizer solution 3 mL (0.63 mg total). Active buPROPion XL (WELLBUTRIN XL) 150 mg 24 hr tablet Take 1 tablet (150 mg total) by mouth. Active cholecalciferol, vitamin D3, 2,000 units capsule Take 1 capsule (2,000 Units total) by mouth in the morning. Active cilostazoL (PLETAL) 100 mg tablet Take 1 tablet (100 mg total) by mouth in the morning and 1 tablet (100 mg total) before bedtime. 022 Active fenofibrate (FENOGLIDE) 120 MG tablet Take by mouth daily. Active insulin aspart U-100 (NovoLOG) 100 unit/mL (3 mL) insulin pen Inject under the skin. Active metoprolol succinate XL (TOPROL XL) 25 mg 24 hr tablet Take by mouth daily. Active metoprolol tartrate (LOPRESSOR) 25 mg tablet Take 0.5 tablets (12.5 mg total) by mouth. Active ondansetron ODT (ZOFRAN ODT) 4 mg disintegrating tablet Dissolve on tongue every 12 (twelve) hours. Active nitroglycerin (NITRO-BID) 2 % ointment Place 0.5 inches on the skin. Active cyclobenzaprine (FLEXERIL) 10 mg tablet Take 1 tablet (10 mg total) by mouth in the morning and 1 tablet (10 mg total) at noon and 1 tablet (10 mg total) before bedtime. 30 tablet Active Additional Information Patient not taking.Reported on 08/19/2024 acetaminophen (TYLENOL EXTRA STRENGTH) 500 mg tablet Take 2 tablets (1,000 mg total) by mouth every 6 (six) hours as needed for pain. 30 tablet Active Additional Information Patient not taking.Reported on 08/19/2024 naloxone (NARCAN) 4 mg/actuation spray,non-aerosol nasal spray Administer 1 spray (4 mg total) into alternating nostrils as needed for opioid reversal. 1 each Active Additional Information Patient not taking.Reported on 08/19/2024 ibuprofen (ADVIL,MOTRIN) 600 mg tabletIndications:Po st-op pain Take 1 tablet (600 mg total) by mouth every 8 (eight) hours as needed for pain. 30 tablet Active amoxicillin-pot clavulanate (AUGMENTIN) 875-125 mg per tablet Take 1 tablet by mouth every 12 (twelve) hours. Active fenofibrate (TRICOR) 145 mg tablet Take 1 tablet (145 mg total) by mouth. Active fluconazole (DIFLUCAN) 150 mg tablet Take 1 tablet (150 mg total) by mouth once. Active LORazepam (ATIVAN) 0.5 mg tablet Take 1 tablet (0.5 mg total) by mouth nightly. Active losartan (COZAAR) 100 mg tablet Take 1 tablet (100 mg total) by mouth in the morning. Active meloxicam (MOBIC) 15 mg tablet Take 1 tablet (15 mg total) by mouth in the morning. Active naproxen (NAPROSYN) 500 mg tablet Take 500 mg by mouth in the morning and 500 mg before bedtime. Active NIFEdipine XL (PROCARDIA XL) 30 mg 24 hr tablet Take 1 tablet (30 mg total) by mouth in the morning. Active pravastatin (PRAVACHOL) 10 mg tablet Take 10 mg by mouth in the morning. Active sulfamethoxazole-tri methoprim (BACTRIM DS) 800-160 mg per tablet Take 1 tablet by mouth in the morning and 1 tablet before bedtime. Active varenicline (CHANTIX) 0.5 mg tablet Take 1 tablet (0.5 mg total) by mouth in the morning and 1 tablet (0.5 mg total) before bedtime. Active gabapentin (NEURONTIN) 100 mg capsuleIndications:N euralgia Take 1 capsule (100 mg total) by mouth in the morning and 1 capsule (100 mg total) at noon and 1 capsule (100 mg total) before bedtime. 60 capsule 2 Active Additional Information Patient not taking.Reported on 08/19/2024 rosuvastatin (CRESTOR) 40 mg tablet Take 1 tablet (40 mg total) by mouth in the morning. Active PRALUENT PEN 75 mg/mL pen injector 023 Active aspirin 81 mg chewable tablet CHEW AND SWALLOW 1 TABLET IN THE MORNING 90 tablet 1 024 Active clopidogreL (PLAVIX) 75 mg tabletIndications:Cr itical limb ischemia with history of revascularization of same extremity (CMS-HCC) TAKE 1 TABLET (75 MG TOTAL) BY MOUTH IN THE MORNING 90 tablet 1 025 Active cilostazoL (PLETAL) 50 mg tabletIndications:Pe ripheral arterial disease Take 1 tablet (50 mg total) by mouth in the morning and 1 tablet (50 mg total) before bedtime. 60 tablet 3 025 Active clopidogreL (PLAVIX) 75 mg tabletIndications:Cr itical limb ischemia with history of revascularization of same extremity (CMS-HCC) TAKE 1 TABLET (75 MG TOTAL) BY MOUTH IN THE MORNING 90 tablet 1 024 2024 Discontinued Active Problems Problem Noted Date Diagnosed Date Diabetes mellitus 07/14/2021 Dyspareunia 07/14/2021 Urinary retention 07/14/2021 Gangrenous toe 07/09/2021 Peripheral artery disease 07/09/2021 Overview (07/11/2021): Added automatically from request for surgery [id number] Type 1 diabetes mellitus 06/27/2021 Gangrene 06/27/2021 Primary hypertension 06/27/2021 Peripheral arterial disease 06/19/2021 Lung nodules 08/29/2011 Encounters Date Type Department Care Team Description 09/01/2024 [place] [address] Alonso Piazno MD 08/29/2024 2:37 PM EDT - 08/29/2024 11:59 PM EDT Hospital Encounter [facility] - CT Imaging [address] [place] [address] Alonso Pizano MD Critical limb ischemia with history of revascularization of same extremity ([facility]-HCC) Discharge Disposition: Home 08/29/2024 Travel 08/19/2024 3:20 [place] [address] Alonso Pizano MD Peripheral arterial disease (Primary Dx); Critical limb ischemia with history of revascularization of same extremity ([facility]-HCC) 08/19/2024 1:17 PM EDT - 08/19/2024 11:59 PM EDT Hospital Encounter [facility] [address] [place] [address] Critical limb ischemia with history of revascularization of same extremity ([facility]-HCC); 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, left leg Discharge Disposition: Home 08/19/2024 1:00 PM EDT - 08/19/2024 1:16 PM EDT Hospital Encounter [facility] [address] [place] [address] Critical limb ischemia with history of revascularization of same extremity ([facility]); 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, left leg Discharge Disposition: Home 08/19/2024 Travel 08/06/2024 Refill [facility] [address] [place] [address] Alonso Pizano MD Critical limb ischemia with history of revascularization of same extremity ([facility]) 07/03/2024 Telephone [facility] [address] [place] [address] Christina Coreas CMA from Last 3 Months Social History Tobacco Use Types Packs/Day Years [...] on file Sexual Orientation Not on file Last Filed Vital Signs Vital Sign Reading Time Taken Comments Blood Pressure 145/90 08/19/2024 3:17 PM EDT 140/89 left arm Pulse 77 02/03/2022 2:49 PM EST Temperature 36.4 C (97.5 F) 07/20/2021 12:40 PM EDT Respiratory Rate 18 07/29/2021 2:21 PM EDT Oxygen Saturation 99% 02/03/2022 2:4 9 PM EST Inhaled Oxygen Concentration - - Weight 56.7 kg (125 lb) 08/19/2024 3:17 PM EDT Height 162.6 cm (5' 4 ) 08/19/2024 3:17 PM EDT Body Mass Index 21.46 08/19/2024 3:17 PM EDT Plan of Treatment Upcoming Encounters Date Type Department Care Team (Late st Contact Info) Description 09/30/2024 11:30 AM EDT Office Visit [facility] [address] [place] [address] Alonso Pizano MD [address] [place] [address] 08/19/2025 1:00 PM EDT Appointment [facility] - [facility]ascular [address] [place] [id number] Alonso Pizano MD [address] [place] [address] 08/19/2025 2:00 PM EDT Appointment [facility] [address] [facility] [place] [phone] Alonso Pizano MD [address] [place] [address] 09/01/2025 2:00 PM EDT Office Visit [facility] [address] [place] [address] Alonso Pizano MD [address] [place] [address] Health Maintenance Due Date Last Done Comments Diabetic Ophthalmology Exam 1966 Statin Use: Diabetic 1966 Depression Screening 1978 Diabetic Foot Exam 1984 DTaP,Tdap and Td Vaccines (3 - Tdap) 11/01/201410/17, 12/31/1977 Zoster (Shingles) Vaccine (1 of 2) 2016 Influenza Vaccine 11/17/2024 Tobacco Screening 01/10/2025 01/11/2024 Adult BMI Screening 08/19/2025 08/19/2024 Goals Goal Patient Goal Type Associated Problems Recent Progress Patient-Stated? Author Home General Yes Gisela Woody, REEFER ENGINEER Note: Evaluation of progress towards goal: Discharge home with family support/ self care Medical Devices Implanted Type Area Warehouse Worker Device Identifier Shelf Expiration Date Model / Serial / Lot Patch Cv 8x.8cm N-Pyrg Tpr End [employer] Decellularized Bvn Rpl [id number] - [id number] Implanted:Qty: 1 on 07/14/2021 by Alonso Pizano MD at [facility] Graft Left: Groin CRYOLIFE 03/05/2023 [id number] / / [id number] Description:LEFT FEMORAL ART TIGIST Procedures Procedure Name Priority Date/Time Associated Diagnosis Comments CT CTA ABD AORTA W RUNOFF STAT 08/29/2024 4:05 PM EDT Critical limb ischemia with history of revascularization of same extremity (CMS-HCC) CREATININE, SERUM Routine 08/29/2024 2:3 6 PM EDT Critical limb ischemia with history of revascularization of same extremity (CMS-HCC) [facility] ARTERIAL DUPLEX LOWER GRAFT SCAN LEFT Routine 08/19/2024 2:13 PM EDT Critical limb ischemia with history of revascularization of same extremity (CMS-HCC) 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, left leg [facility] ARTERIAL DOPPLER LOWER LIMITED SINGLE (GABRIELLE) Routine 08/19/2024 2:12 PM EDT Critical limb ischemia with history of revascularization of same extremity (CMS-HCC) 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 Peripheral arterial disease. Limb ischemia. Comparison: 06/27/2021 [...] with moderate stenosis. Profundofemoral is patent. [place] left SFA is chronically occluded. There is [...] ischemia with history ofrevascularization of same extremity ([facility]HCC). Peripheral arterialdisease. Limb ischemia. Comparison: 06/27/2021 [...] with moderate stenosis. Profundofemoral is patent. [place] leftSFA is chronically occluded. There is a [...] Pizano MD IMG CT ORDERABLES Final Result * (ABNORMAL) Creatinine includes GFR, serum (08/29/2024 2:36 PM EDT) CREATININE 1.08(H) 0.40 - 1.00 mg/dL 08/29/2024 2:54 PM EDT [facility] Comment:METHOD TRACEABLE TO IDMS STANDARD EGFR Non-Race Dependent 60 >=60 ml/min/1.7 3sq.m 08/29/2024 2:54 PM EDT [facility] Comment: Reported eGFR is based on the CKD-EPI 2020 equation that does not use a race coefficient. Blood Venous blood / Unknown Venipuncture / Unknown 08/29/2024 2:36 PM EDT 08/29/2024 2:36 PM EDT us Alonso Pizano MD LAB BLOOD ORDERABLES Final Resu lt [facility] [address] [place] [address], [place] * Vas art duplex lwr graft scan [...] MD CV VASCULAR ORDERABLES Final Re sult * Vas art doppler lwr limited single (08/19/2024 2:12 PM EDT) Anatomical Region Laterality Modality Vascular N/A Ultrasound 08/19/2024 2:16 PM EDT Narrative 08/20/2024 7:21 AM EDT Previous: Previous GABRIELLE exam performed 12/07/2023 : Highest GABRIELLE: Right: 1.09 Left: 1.02.History of left femoral to popliteal arteyr bypass graft 07/14/2021. Right: Essentially normal PVR waveform contour at the ankle. PT GABRIELLE is 1.11; DP GABRIELLE is 0.90. TBI is 0.71. Multiphasic with diastolic flow reversal PT and DP, CW Doppler waveforms. Essentially normal PPG waveform contour at the 1st toe. Left: Essentially normal PVR waveform contour at the ankle. PT GABRIELLE is 1.11; DP GABRIELLE is 1.05. TBI is 0.05. Multiphasic with diastolic flow reversal PT and DP, CW Doppler waveforms. Severely abnormal PPG waveform contour at the 1st toe. Conclusions: BILATERAL: Normal lower extremity GABRIELLE examination at rest. Recommendations: Any questions prior to finalization, please call the reading physician during normal business hours at the phone number beside their name. When compared to previous report no significant changes were noted. Procedure Note Rob Briones MD - 08/20/2024 Previous: Previous GABRIELLE exam performed 12/07/2023 : Highest GABRIELLE: Right:1.09 Left: 1.02.History of left femoral to popliteal arteyr bypass graft07/14/2021. Right: Essentially normal PVR waveform contour at the ankle. PT GABRIELLE is1.11; DP GABRIELLE is 0.90. TBI is 0.71. Multiphasic with diastolic flowreversal PT and DP, CW Doppler waveforms. Essentially normal PPG waveformcontour at the 1st toe. Left: Essentially normal PVR waveform contour at the ankle. PT GABRIELLE is1.11; DP GABRIELLE is 1.05. TBI is 0.05. Multiphasic with diastolic flowreversal PT and DP, CW Doppler waveforms. Severely abnormal PPG waveformcontour at the 1st toe. Conclusions: BILATERAL: Normal lower extremity GABRIELLE examination at rest. Recommendations: Any questions prior to finalization, please call thereading physician during normal business hours at the phone number besidetheir name. When compared to previous report no significant changes werenoted. us Alonso Pizano MD CV VASCULAR ORDERABLES Final Re sult from Last 3 Months Insurance MEDICAID [place] MEDICARE Advance Directives Documents on File Type Date Recorded Patient Chick Grader Expl anation Living Will 07/15/2021 6:42 AM living andrea l/poa * Full Code (Latest Code Status on File) Date Activated Date Inactivated Comments 07/09/2021 10:08 PM 07/20/2021 4:19 PM Care Teams Missing Persons Investigator Relationship Specialty Start Date End Date Chato Bradshaw DO PCP - General Family Medicine 07/07/21
--- OUTSIDE RECORDS SUMMARY | 2024-09-03 17:38 | XMS_ITS | Clinical Summary ---
Author Organization [facility] Address [address] [place] [address] Phone Care Team Providers Care Director Of Assessment Name Role Phone Chato Bradshaw DO Primary Care Provider + Rj Ashby MD Unavailable [phone] Allergies Active Allergy Reactions Criticality Noted Date Comments Latex Unknown 03/22/2023 Gqswfqj-Jqs-Njv Reductase Inhibitors Unknown 03/22/2023 Medications albuterol 90 mcg/actuation inhaler Inhale 2 puffs every 4 hours if needed for wheezing. Active aspirin 81 mg EC tablet Take 1 tablet (81 mg) by mouth once daily. Active ibuprofen 800 mg tablet Take 1 tablet (800 mg) by mouth if needed for moderate pain (4 - 6). 05/21/19 21 Active NovoLOG U-100 Insulin aspart 100 unit/mL injection 03/18/20 23 Active ondansetron ODT (Zofran-ODT) 4 mg disintegrating tablet Take 1 tablet (4 mg) by mouth if needed for nausea or vomiting. 05/28/19 21 Active clopidogrel (Plavix) 75 mg tablet Take 1 tablet (75 mg) by mouth once daily. 08/05/19 23 Active dupilumab (DUPIXENT PEN SUBQ) Inject under the skin every 14 (fourteen) days. Active cetirizine (ZyrTEC) 10 mg tablet Take 1 tablet (10 mg) by mouth if needed. 08/06/19 23 Active metoprolol tartrate (Lopressor) 25 mg tabletIndications: Benign essential hypertension TAKE 1 TABLET DAILY 90 tablet 3 12/31/19 24 Active lisdexamfetamine (Vyvanse) 50 mg capsule Take 1 capsule (50 mg) by mouth once daily in the morning. Active desvenlafaxine 50 mg 24 hr tablet Take 1 tablet (50 mg) by mouth once daily. 09/10/19 24 Active desvenlafaxine succinate (Pristiq) 25 mg 24 hour tablet Take 1 tablet (25 mg) by mouth once daily. 11/02/19 24 Active amlodipine-valsart an (Exforge) 5-160 mg tabletIndications: Benign essential hypertension Take 1 tablet by mouth once daily. 90 tablet 3 01/23/20 24 025 Active Praluent Pen 75 mg/mL pen injectorIndication s:Hyperlipidemia, unspecified INJECT SUBCUTANEOUSLY ONCE EVERY 2 WEEKS 6 Pen 3 04/02/19 25 026 Active Active Problems Problem Noted Date Diagnosed Date BMI 21.0-21.9, adult 06/28/2023 Former smoker 06/28/2023 Benign essential hypertension 03/22/2023 Diabetes mellitus (Multi) 03/22/2023 Fibromyalgia 03/22/2023 Hyperlipidemia 03/22/2023 Intermittent claudication 03/22/2023 PVD (peripheral vascular disease) 03/22/2023 Statin intolerance 03/22/2023 Social History Tobacco Use Types Packs/Day Years Used Date Smoking Tobacco: Former Cigarettes Q uit: 2021 Smokeless Tobacco: Never Tobacco Cessation:Counseling Given: Not Answered Alcohol Use Standard Drinks/Week Comments Yes 0 (1 standard drink = 0.6 oz pur e alcohol) socially Comments Unknown Sex and Gender Information Value Date Recorded Sex Assigned at Not on file Legal Sex Female 9:30 PM EST Gender Identity Not on file Sexual Orientation Not on file Last Filed Vital Signs Vital Sign Reading Time Taken Comments Blood Pressure 132/86 01/23/2024 11:13 AM EST Pulse 76 01/23/2024 11:13 AM EST Temperature 35.9 C (96.6 F) 07/27/2020 4:38 PM EDT Respiratory Rate - - Oxygen Saturation - - Inhaled Oxygen Concentration - - Weight 56.2 kg (124 lb) 01/23/2024 11:13 AM EST Height 162.6 cm (5' 4 ) 01/23/2024 11:13 AM EST Body Mass Index 21.28 01/23/2024 11:13 AM EST Plan of Treatment Upcoming Encounters Date Type Department Care Team (Late st Contact Info) Description 09/05/2024 1:20 PM EDT Office Visit [facility] [address] [place] [phone] Rj Ashby MD [address] [place] [address] Health Maintenance Due Date Last Done Comments CT Colonography 1966 Colonoscopy 1966 Colorectal Cancer Screening 1966 Diabetes: Urine Protein Screening 1966 FIT-DNA (Cologuard) 1966 FIT 1966 HIV Screening 1966 Lipid Panel 1966 Sigmoidoscopy 1966 Welcome to Medicare Visit 1966 Hepatitis C Screening 1984 Pneumococcal Vaccine (1 of 2 - PCV) 1985 Cervical Cancer Screening 12/15/1987 HPV/Cotest 12/15/1987 Pap Smear 12/15/1987 Hepatitis B Vaccines (3 of 3 - 19+ 3-dose series) 05/04/2005 01/18/2005, 11/01/2004 DTaP/Tdap/Td Vaccines (3 - Tdap) 11/01/2014 11/01/2004, 12/31/1977 Zoster Vaccines (1 of 2) 2016 Diabetes: Hemoglobin A1C 08/06/2023 024, 06/28/2021 COVID-19 Vaccine ( - 2023-2 5 season) 2023 Influenza Vaccine (Season Ended) 2024 Mammogram 01/02/2025 01/03/2024, 01/03/2024 Diabetes: Retinopathy Screening 12/31/2025 01/01/2024 MMR Vaccines Completed 11/08/2004, 09/17/1972 HIB Vaccines Aged Out No longer eligi ble based on patient's age to complete this topic HPV Vaccines Aged Out No longer eligi ble based on patient's age to complete this topic Hepatitis A Vaccines Aged Out No long er eligible based on patient's age to complete this topic IPV Vaccines Aged Out No longer eligi ble based on patient's age to complete this topic Meningococcal Vaccine Aged Out No nidia nik eligible based on patient's age to complete this topic Rotavirus Vaccines Aged Out No longer eligible based on patient's age to complete this topic Insurance MEDICAID Member Subscriber Plan / Payer ( fective 2023-Present) Name:RoslynCamryn Brandon Relation to Subscriber:Self Name:Camryn Mcgowan Brandon Payer ID:Not on file Group ID:Not on file Type:Not on file Address: [address] [employer]VANT[employer] Member Subscriber Plan / Payer ( fective 2023-Present) Name:Roslyn Camryn Brandon Relation to Subscriber:Self Name:RoslynCamryn Payer ID:Not on file Group ID:Not on file Type:Not on file Address: [address] [employer] Care Teams Director Of Assessment Relationship Specialty Start Date End Date Augustine Chatoerika Washington DO [address] [place] [address] PCP - General 03/19/19 Rj Ashby MD [address] [facility], [facility] [address] [place] [address] Consulting Physician Cardiology 04/13/23
--- OUTSIDE RECORDS SUMMARY | 2024-09-03 17:38 | XMS_ITS | Encounter Summary ---
Author Organization [facility] Address [address] [place] [address] Care Team Providers Care Regulatory Coordinator Name Role Phone Niraj Kwon Jr. Primary Care Provider Chato Piña DO Primary Care Provider [phone] Pcp, No CATHODE RAY TUBE ASSEMBLER Primary Care Provider Unavailabl e Source Comments In the event this information is protected by the Federal Confidentiality of Alcohol and Drug AbusePatient Records regulations: The Federal rules restrict any use of the information to criminally investigate or prosecute any alcohol or drug abuse patient.[facility] Reason for Visit * Reason Comments Results Cardiovascular Auton omic Test Report Encounter Details Date Type Department Care Team (Late st Contact Info) Description 03/25/2004 Abstract Neurology [address] [place] [address] Niraj Salazar MD [address] [place] [address] Results (Cardiovascular Autonomic Test Report) Social History Tobacco Use Types Packs/Day Years Used Date Smoking Tobacco: Every Day Cigarettes 1 15 Alcohol Use Standard Drinks/Week Comments Not Asked 0 (1 standard drink = 0.6 oz pur e alcohol) Comments No Sex and Gender Information Value Date Recorded Sex Assigned at Not on file Legal Sex Female 10:06 AM EST Gender Identity Not on file Sexual Orientation Not on file documented as of this encounter Progress Notes * 03/25/2004 11:24 AM ESTDate: March 25, 2004 Tech: Alexandra Dasilva EDT Ref DrLitzy: KATHERINE Ref Dx: AUTONOMIC NEUROPATHY Symptoms: CONSTIPATION. : 1965 CARDIOVASCULAR AUTONOMIC PANEL I. Heart rate response to deep breathing: Good Effort 1 MHRR = 21.5 (20-39 yrs: Normal HR >= 13) 2. Expiratory / Inspiratory Ratio ( E:I) = 1.46 (Normal >1.14) II. Valsalva Maneuver Good Effort 1. Valsalva ratio (VR): 1.27 (Female 20-39 yrs: Normal >1.41) 2. BP response phase II: Normal 3. BP response phase IV: Normal III. Heart rate response to standing:Not done (: ratio) IV. Blood pressure response to hand special events coordinator: Not done (Diastolic BP change mm Hg) V. Blood pressure and Heart Rate response to tilt: 60 degrees for 5 minutes. PATIENT TOLERATED TEST. TIME Heart Rate BP Mean Base: 60 133/87 103 0min: 67 100/60 78 1min: 72 127/69 94 2min: 91 132/88 110 3min: 75 141/83 102 4min: 79 129/85 107 5min: (71-87) 137/89 110 6min: 86 138/95 116 7min: (81-95) 152/98 121 8min: (72-82) 145/90 112 9min: (69-78) 149/90 108 10min: 82 144/89 112 1min after untilt: 72 132/88 116 2min after untilt: 69 136/87 107 Impression: Heart rate response to deep breathing is normal as are the blood pressure responses to the Valsalva maneuver. The Valsalva ratio is reduced. During 60 degree head-up tilt for 10 minutes, blood pressure remained stable but heart rate increased at 2 minutes and at 7 minutes by greater than 30 bpm. This finding is of uncertain clinical significance as the increased heart rate was not reese stained. The reduced Valsalva ratio may indicate a mild cardiovagal abnormality. Niraj Salazar JR, MD documented in this encounter Plan of Treatment Not on file documented as of this encounter Visit Diagnoses Not on filedocumented in this encounter Care Teams Regulatory Coordinator Relationship Specialty Start Date End Date Niraj Kwon Jr. PCP - General 03/14/04 03/02/11 Chato Bradshaw DO PCP - General Family Medicine 03/03/11 09/30/21 Nataliya Joshi APRN PCP - General 10/01/21 04/18/22 documented as of this encounter
--- OUTSIDE RECORDS SUMMARY | 2024-09-03 17:38 | XMS_ITS | Clinical Summary ---
Author Organization [facility] Healthcare Address [address] [place] [address] Care Team Providers Care Wire Twisting Machine Operator Name Role Phone Chato Bradshaw MD Primary Care Provider [phone] Allergies Active Allergy Reactions Criticality Noted Date Comments Latex 08/28/2022 Medications amLODIPine (Norvasc) 10 MG tablet Take 10 mg by mouth in the morning. 07/11/2022 Active buPROPion SR (Wellbutrin SR) 200 MG 12 hr tablet Take 1 tablet by mouth in the morning and 1 tablet before bedtime. Active celecoxib (CeleBREX) 100 MG capsule Take 100 mg by mouth in the morning and 100 mg before bedtime. 08/10/2022 Active cetirizine (ZyrTEC) 10 MG tablet Take 10 mg by mouth in the morning. 08/05/2022 Active clopidogrel (Plavix) 75 MG tablet 1 (one) time each day at the same time. 08/04/2022 Active Rexulti 3 MG tablet 1 (one) time each day at the same time. Active cilostazol (Pletal) 50 MG tablet every 12 (twelve) hours. Active desvenlafaxine (Pristiq) 50 MG 24 hr tablet Take 1 tablet by mouth in the morning. Active estrogens, conjugated, (Premarin) 0.625 MG tablet 1 (one) time each day at the same time. Active levothyroxine (Synthroid, Levoxyl) 50 MCG tablet 08/25/2022 Active Active Problems Problem Noted Date Diagnosed Date B12 deficiency 11/14/2022 Assessment & Plan (11/14/2022 12:21 PM EDT): Add B12 SL. If high dose (e.g. 5000 e.g. Laurence'), can take 3x/week. Redo B12 panel before appt. Cognitive decline 08/28/2022 Assessment & Plan (11/14/2022 12:13 PM EDT): MR brain. Memory loss, need to distinguish multi-infarct from degen for treatment decision. (Pituitary to be imaged concomitantly.) Assessment & Plan (08/28/2022 3:19 PM EDT): MR brain. EEG 1 hour - [facility]. Cogn panel. Polyneuropathy 08/28/2022 Assessment & Plan (11/14/2022 12:07 PM EDT): SHIRLEY panel (subtests) - was to have been done last time but was not. Assessment & Plan (08/28/2022 3:24 PM EDT): Neurop panel. Pituitary adenoma 08/28/2022 Assessment & Plan (08/28/2022 3:28 PM EDT): MR pituitary c/s Gd. Hormone panel. Neurogenic pain 08/28/2022 Assessment & Plan (11/14/2022 12:20 PM EDT): (Continue current regimen.) Assessment & Plan (08/28/2022 3:28 PM EDT): (Continue med.) Claustrophobia 08/28/2022 Assessment & Plan (08/28/2022 3:29 PM EDT): Add diazepam 15 1 h before MR. Family History Medical History Relation Name Comments Heart disease Mother Hypertension Mother Relation Name Status Comments Mother Alive Social History Tobacco Use Types Packs/Day Years Used Date Smoking Tobacco: Every Day Cigarettes Tobacco Cessation:Ready to Q uit: Not Asked; Counseling Given: Not Answered Alcohol Use Standard Drinks/Week Comments Not Currently 0 (1 standard drink = 0.6 oz pur e alcohol) Comments Unknown Sex and Gender Information Value Date Recorded Sex Assigned at Not on file Legal Sex Female 7:23 PM EDT Gender Identity Not on file Sexual Orientation Not on file Last Filed Vital Signs Vital Sign Reading Time Taken Comments Blood Pressure 137/87 11/14/2022 12:03 PM EDT Pulse 76 11/14/2022 12:03 PM EDT Temperature - - Respiratory Rate - - Oxygen Saturation - - Inhaled Oxygen Concentration - - Weight 59 kg (130 lb) 11/14/2022 12:03 PM EDT Height 162.6 cm (5' 4 ) 11/14/2022 12:03 PM EDT Body Mass Index 22.31 11/14/2022 12:03 PM EDT Plan of Treatment Not on file Insurance [employer] Care Teams Wire Twisting Machine Operator Relationship Specialty Start Date End Date Chato Bradshaw MD [address] [place] [address] PCP - General Pediatrics 08/28/22
--- OUTSIDE RECORDS SUMMARY | 2024-09-03 17:38 | XMS_ITS | Clinical Summary ---
Author Organization [facility] Address [address] [place] [id number] Care Team Providers Care Radiologic Technology Teacher Name Role Phone Unavailable Primary Care Provider Unavailabl e Allergies Active Allergy Reactions Criticality Noted Date Comments Latex Rash,Hives,Itching 03/21/2011 Medications MOTRIN 800 MG TABLETIndicatio ns:Other specified functional disorders of intestine,Cauda equina syndrome with neurogenic bladder (HCC) 1 tab 3-5 times daily 0 5 Active PREMARIN 1.25 MG ORAL TABIndications: Other specified functional disorders of intestine,Cauda equina syndrome with neurogenic bladder (HCC) 1 tb qd 90 1 5 Active Additional Information Patient not taking.Reason: Other, Reported on 05/10/2022 insulin aspart(NOVOLOG 100 UNIT/ML SUB-Q) SLIDING SCALE. 2UNITS WITH MEALS IF NEEDED 0 0 Active pravastatin sodium(PRAVACHO L 20 MG TAB) Take one(1) tablet daily at bedtime. 0 0 Active varenicline (CHANTIX) 0.5 mg tablet Take 0.5 mg by mouth twice daily. Active Additional Information Patient not taking.Reason: Other, Reported on 05/10/2022 albuterol HFA (PROVENTIL HFA) 90 mcg/Actuation INHALATION inhalerIndicati ons:Asthma (HCC) Inhale 2 Puffs as instructed every 4 hours as needed (for shortness of breath and wheezing.). 1 Inhaler 6 2 Active mometasone (ELOCON) 0.1 % ointment Apply to affected area once daily. 45 g 1 3 Active fluticasone (FLONASE) 50 mcg/actuation nasal spray SPRAY 1 SPRAY INTO EACH NOSTRIL TWICE A DAY 48 mL 1 3 Active cetirizine (ZYRTEC) 10 mg tablet take 1 tablet by mouth every day 90 tablet 1 4 Active Active Problems Problem Noted Date Diagnosed Date Lung nodules 08/29/2011 Family History Medical History Relation Comments Alcohol/Drug Brother 2 Psychiatry Brother 3 Bipolar/schitz Thyroid Brother 4 Asthma Father Coronary Artery Disease Maternal Grandfather Diabetes Maternal Grandfather Ischemic Heart Disease Maternal Grandfather of heart attack Hypertension Mother Lipids Mother Alcohol/Drug Sister 4 Diabetes Sister 5 Coronary Artery Disease Sister 6 Ischemic Heart Disease Sister 7 Lipids Sister 8 Thyroid Sister 9 Graves Disease Thyroid Sister 10 nodules/thyroide ctomy Relation Status Comments Brother 1 Alive Brother 2 Brother 3 Brother 4 Daughter 1 Alive Daughter 2 Alive Daughter 3 Alive Father Alive Maternal Aunt 1 Alive Maternal Aunt 2 Alive Maternal Grandfather Maternal Grandmother Maternal Uncle 1 Alive Maternal Uncle 2 (Age 59) Mother Alive Paternal Aunt 1 Alive Paternal Aunt 2 Alive Paternal Grandfather Paternal Grandmother Paternal Uncle Alive Sister 1 Alive Sister 2 Alive Sister 3 Alive Sister 4 Sister 5 Sister 6 Sister 7 Sister 8 Sister 9 Sister 10 Social History Tobacco Use Types Packs/Day Years Used Date Smoking Tobacco: Former Cigarettes 0.8 15 Tobacco Cessation:Counseling Given: Not Answered Alcohol Use Standard Drinks/Week Comments Yes 0 (1 standard drink = 0.6 oz pur e alcohol) occ-maybe one beer a month Area Deprivation Index Answer Date Aniceto rded National Score (1-100), lower number is lower ri 82 05/10/2022 State Score (1-10), lower number is lower risk N ot on file 05/10/2022 Data from: https://www.neighborhoodatlas.medicine.[facility].edu/. Last address used for calculation [address] 05/10/2022 Comments No Sex and Gender Information Value Date Recorded Sex Assigned at Not on file Legal Sex Female 10:06 AM EST Gender Identity Not on file Sexual Orientation Not on file Last Filed Vital Signs Vital Sign Reading Time Taken Comments Blood Pressure 127/83 08/29/2011 2:00 PM EDT Pulse 87 08/29/2011 2:00 PM EDT Temperature 36.8 C (98.2 F) 05/10/2022 1:29 PM EST Respiratory Rate 16 08/29/2011 2:00 PM EDT Oxygen Saturation 98% 08/29/2011 2:00 PM EDT Inhaled Oxygen Concentration - - Weight 55.3 kg (121 lb 14.6 oz) 08/29/2011 2:00 PM EDT Height 162.5 cm (5' 3.98 ) 08/29/2011 2:00 PM ED T Body Mass Index 20.94 08/29/2011 2:00 PM EDT Plan of Treatment Health Maintenance Due Date Last Done Comments Anxiety Screening 1984 Depression Screening 1984 HIV Screening 1984 Hepatitis C Screening 1984 Cervical Cancer Screening 12/15/1987 Hepatitis B Vaccine (3 of 3 - 19+ 3-dose series) 05/04/2005 01/18/2005, 11/01/[address] Colonography 12/15/2011 Cologuard (FIT-DNA) 12/15/2011 Colonoscopy 12/15/2011 Colorectal Cancer Screening 12/15/2011 Fecal Occult Blood 12/15/2011 Sigmoidoscopy 12/15/2011 DTaP,Tdap,Td Vaccine (3 - Tdap) 11/01/2014 5, 12/31/1977 Pneumococcal Vaccine: 50+ (1 of 1 - PCV) 2016 Shingrix Vaccine (1 of 2) 2016 Covid-19 Vaccine (1 - 2023-2 5 season) 2023 Diabetes Screening 08/29/2024 08/29/2021, 0 07/20/2021, 07/19/2021, Additional history exists Influenza Vaccine (Season Ended) 2024 Lipid Screening 08/29/2026 08/29/2021, 04/2 07/2021, 05/10/2009 Procedures Procedure Name Priority Date/Time Associated Diagnosis Comments COMPREHENSIVE METABOLIC PANEL Routine 05/10/2009 11:44 AM EST Diabetes Mellitus Type 1 LIPID PANEL, FASTING Routine 05/10/2009 11:44 AM EST Diabetes Mellitus Type 1 from Last 3 Months or Most Recently Relevant to Health Maintenance Results * (ABNORMAL) LIPID PANEL BASIC (05/10/2009 11:44 AM EST) Triglyceride 201(H) 30 - 149 mg/dL [facility] Cholesterol, Total 217(H) 100 - 199 mg/dL [facility] HDL Cholesterol 73 >55 mg/dL [facility] VLDL Cholesterol 40 6 - 40 mg/dL [facility] LDL Cholesterol, Calculated 104 60 - 129 mg/dL [facility] Fasting Time 2 hrs [facility] TC:HDL Ratio 2.97 1.00 - 5.00 [facility] LDL:HDL Ratio 1.42 0.50 - 3.55 [facility] Non HDL Cholesterol 144 90 - 159 mg/dL [facility] Blood specimen (specimen) BLOOD SPECIMEN / Unknown 05/10/2009 11:44 AM EST us Amanda Reyna MD LABORATORY Final Resu lt Performing Organization Address City/State/[facility] Co de Phone Number [facility] [address] [facility] [place] [phone] * COMP METABOLIC PANEL (05/10/2009 11:44 AM EST) Pathologist [facility] Protein, Total 7.4 6.0 - 8.4 g/dL [facility] Albumin 5.0 3.5 - 5.0 g/dL [facility] Calcium 10.0 8.5 - 10.5 mg/dL [facility] Bilirubin, Total 0.4 0.0 - 1.5 mg/dL [facility] Alkaline Phosphatase 95 40 - 150 U/L [facility] AST 22 7 - 40 U/L [facility] Glucose 77 65 - 100 mg/dL [facility] BUN 15 8 - 25 mg/dL [facility] Creatinine 1.00 0.70 - 1.40 mg/dL [facility] Sodium 141 132 - 148 mmol/L [facility] Potassium 4.3 3.5 - 5.0 mmol/L [facility] Chloride 101 98 - 110 mmol/L [facility] CO2 27 23 - 32 mmol/L [facility] Anion Gap 13 0 - 15 mmol/L [facility] ALT 20 0 - 45 U/L [facility] eGFR- >60 [facility] eGFR-All Other Races >60 . [facility] Comment: eGFR (Estimated GFR) Units of measure: mL/min/1.73 meters squared eGFR is derived from the reexpressed MDRD Study equation using the following parameters: serum creatinine, age, gender and race. The creatinine assay has been calibrated to be traceable to IDMS. An eGFR <60 mL/min/1.73m2 for >3 months is consistent with chronic kidney disease. Refer to KDOQI guidelines for clinical interpretation. Blood specimen (specimen) BLOOD SPECIMEN / Unknown 05/10/2009 11:44 AM EST us Amanda Reyna MD LABORATORY Final Resu lt [facility] [address] [place] [address] from Last 3 Months or Most Recently Relevant to Health Maintenance Insurance [employer] Member Subscriber Plan / Payer (Ef fective 2022-Present) Name:Khris Ladd Relation to Subscriber:Self Name:Khris Ladd Payer ID:[id number] (NAIC) Group ID:Not on file Type:Medicaid Address: [facility] [address] [place] [id number]
--- OUTSIDE RECORDS SUMMARY | 2024-09-03 17:38 | XMS_ITS | Patient Health Record ---
Author Organization [employer] [facility] Address [address] [place] [address] Care Team Providers Care Teacher Of Gifted Students Name Role Phone Valerie Munoz Primary Care Provider [phone] Sameer Gomez Unavailable [phone] Negrita Waters Unavailable [phone] Allergies Allergen (clinical drug ingredient) Drug/Non Drug Allergy documented on EMR Reaction Allergy Type Onset Date Status meperidine Demerol vomiting Drug Allergy Active Latex Latex rash Allergy Active Reason For Referral No Information Medications Medication SIG (Take, Route, Frequency, Duration) Notes Start Date End Date Status Lisdexamfetamine Dimesylate 50 MG 1 capsule in the morning Orally Once a day for 30 days F90.0 DNF until 08/28/2024 07/31/2024 Active Lisdexamfetamine Dimesylate 50 MG 1 capsule in the morning Orally Once a day for 30 days F90.0 DNF until 08/09/2024 06/16/2024 Active NovoLOG 100 UNIT/ML as directed Injection Active Desvenlafaxine Succinate ER 50 MG 1 tablet Orally Once a day for 90 days Active Desvenlafaxine Succinate ER 25 MG TAKE 1 TABLET BY MOUTH EVERY DAY WITH 50 MG TABLET for 90 days Active LORazepam 0.5 MG 1 tablet Orally Twice a day PRN for 30 days F41.1 last fill 08/202306/16/2024 Active Cilostazol 50 MG 2 TABLETS Orally Twice a day Active Premarin 0.625 MG 1 tablet Orally Once a day Not-Taking Clopidogrel Bisulfate 75 MG 1 tablet Orally Once a day Active Progesterone Micronized 200 MG 1 capsule at bedtime every cycle Orally Once a day Not-Taking Aspirin 81 MG 1 tablet Orally Once a day Active Levothyroxine Sodium 50 MCG 1 tablet in the morning on an empty stomach Orally Once a day Active Dupixent 300 MG/2ML Subcutaneous for 28 Days dermatology Active Ondansetron HCl 4 MG 1 tablet for nausea Orally twice a day (bid) as needed (prn) for 30 day(s) 04/26/2022 Active Amlodipine 10 mg once daily PO Active Metoprolol Tartrate 25 MG 1 tablet with food Orally Twice a day Active Vyvanse 50 MG 1 capsule in the morning Orally Once a day for 90 days F90.0 10/02/2023 Active Vyvanse 40 MG 1 capsule in the morning Orally Once a day for 30 days Pt has Medicaid and Medicare as of 10/18/2023. 10/22/2023 Active Praluent 75 MG/ML INJECT SUBCUTANEOUSLY ONCE EVERY 2 WEEKS Subcutaneous for 31 Days Active Ondansetron 4 MG DISSOLVE 1 TABLET ON THE TONGUE TWICE DAILY NEEDED FOR NAUSEA AND VOMITING for 90 Active Vraylar 1.5 MG 1 capsule Orally Once a day for 30 day(s) alternate dosing is 1 cap every other day 10/04/2022 Not-Taking Lisdexamfetamine Dimesylate 50 MG 1 capsule in the morning Orally Once a day for 30 days F90.0 [facility] is out of stock 07/31/2024 Active Social History Tobacco Use: Social History Observation Description Date Details (start date - stop date) Former Smoker 03/19/1981 - 03/19/2022 Tobacco Screen: Question Answer Notes Are you a: current smoker How often do you smoke cigarettes? every day How many cigarettes a day do you smoke? 11-20 PRAPARE Question Answer Notes Date Completed/Updated: 06/16/2024 What is your current housing situation? I have h ousing Are you worried about losing your housing? No What is the highest level of school that you have finished? More than high school What is your current work situation? Oth erwise unemployed but not seeking work (ex. 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 Check all that apply I do not have problems meeting my needs Has lack of transportation k ept you from medical appointments, meetings, work or from getting things needed for daily living? No How often do you see or talk to people that you care about and feel close to? (For example: talking to friends on the phone, visiting friends or family, going to temple or club meetings) More than 5 times a week How stressed are you? Stress is when someone feels tense, nervous, anxious, or cant sleep at night because their mind is troubled Somewhat In the past year have you sp ent more than 2 nights in a row in a custodial, shelter, care home center, or juvenile correctional facility? No Are you a refugee? No What country are you from? [place] Do you feel physically and e motionally safe where you currently live? Yes In the past year, have you b een afraid of your partner or ex-partner? I have not had a partner in the past year PRAPARE Score: 4 DAST-10 (2020 Edition) Question Answer Notes 1. Have you used drugs other than those required for medical reasons? No 2. Do you abuse more than one drug at a time? No 3. Are you always able to st op using drugs when you want to? Yes 4. Have you had blackouts or flashbacks as a result of drug use? No 5. Do you ever feel bad or guilty about your liz g use? No 6. Does your spouse (or pare nts) ever complain about your involvement with drugs? No 7. Have you neglected your f amily because of your use of drugs? No 8. Have you engaged in illeg al activities in order to obtain drugs? No 9. Have you ever experienced withdrawal symptoms (felt sick) when you stopped taking drugs? No 10. Have you had medical pro blems as a result of your drug use (e.g., memory loss, hepatitis, convulsions, bleeding etc.)? No Results: 0 Interpretation of Score: No problems reported AUDIT-C (Standard) Question Answer Notes Did you have a drink contain ing alcohol in the past year? Yes How often did you have a dri nk containing alcohol in the past year? 2 to 4 times a month (2 points) How many drinks did you have on a typical day when you were drinking in the past year? 1 or 2 drinks (0 point) How often did you have six o r more drinks on one occasion in the past year? Never (0 point) Points 2 Interpretation Negative Tobacco Control (Standard) Question Answer Notes Tobacco use: Former smoker When did you start smoking? 03/19/1981 When did you stop smoking? 03/19/2022 How long has it been since y ou last smoked? Greater than 10 years Additional Findings: Tobacco non-user Ex-heavy c igarette smoker (20-30/day) SBIRT (2018 Edition) Question Answer Notes Patient refused/declined SBIRT screening at this time? No 1. How often do you have a drink containing alco hol? 2-4 times a month 2. How many drinks containin g alcohol do you have on a typical day when you are drinking? 1 or 2 3. How often do you have five or more drinks on one occasion? Never SCORE 2 Interpretation Negative How many times in the past y ear have you used an illegal drug or used a prescription medication for non-medical reasons? 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, predominantly inattentive type (F90.0) Active confirmed Vital Signs Heart Rate 81 /min 10/22/2023 Oximetry 98 % 10/22/2023 Blood pressure diastolic 96 mm Hg 10/22/2023 Height 64 in 10/22/2023 Blood pressure systolic 172 mm Hg 10/22/2023 Weight 126.2 lbs 10/22/2023 BMI 21.66 kg/m2 10/22/2023 Encounters Encounter Location Date Provider Diagnosis [facility] [address] [place] [address] 10/22/2023 Valerie Munoz ADHD, predominantly inattentive type F90.0 and Bipolar 1 disorder, depressed, moderate F31.32 [facility] [address] [place] [address] 06/16/2024 Valerie Munoz Bipolar 1 disorder, depressed, moderate F31.32 ; ADHD, predominantly inattentive type F90.0 and Generalized Anxiety Disorder (TEENA) F41.1 [facility] [address] [place] [address] 01/17/2024 Valerie Munoz ADHD, predominantly inattentive type F90.0 and Bipolar 1 disorder, depressed, moderate F31.32 [facility] [address] [place] [address] 03/28/2024 Sameer Gomez Dental caries on pit and fissure surface penetrating into dentin K02.52 [facility] [address] [place] [address] 06/17/2024 Sameer Gomez Dental caries on pit and fissure surface penetrating into dentin K02.52 [facility] [address] [facility] [place] [place] [address] 02/25/2024 Sameer Gomez Other dental procedu re status Z98.818 ; Encounter for dental examination and cleaning with abnormal findings Z01.21 and Dental caries on pit and fissure surface penetrating into dentin K02.52 [facility] [address] [place] [address] 03/05/2024 Sameer Gomez [facility] [address] [place] [address] 12/04/2023 Valerie Munoz ADHD, predominantly inattentive type F90.0 [facility] [address] [place] [address] 01/14/2024 Valerei Munoz ADHD, predominantly inattentive type F90.0 [facility] [address] [place] [address] 01/16/2024 Valerie Munoz [facility] [address] [place] [address] 01/17/2024 Valerie Munoz [facility] [address] [place] [address] 01/18/2024 Valerie Munoz [facility] [address] [place] [address] 07/31/2024 Valerie Munoz ADHD, predominantly inattentive type F90.0 [facility] [address] [place] [address] 09/19/2023 Valerie Munoz Bipolar 1 disorder, depressed, moderate F31.32 [facility] [address] [facility] [address] [facility] [place] [address] 10/02/2023 Valerie Munoz ADHD, predominantly inattentive type F90.0 Assessments Encounter Date Diagnosis (ICD Code) Assessment Notes Treatment Notes Treatment Clinical Notes Section Notes 09/19/2023 Bipolar 1 disorder, depressed, moderate (ICD-10 - F31.32) 10/02/2023 ADHD, predominantly inattentive type (ICD-10 - F90.0) 10/22/2023 ADHD, predominantly inattentive type (ICD-10 - F90.0) vyvanse 40mg RADHA to start the PA process . OARRS reviewed . Informed consent obtained: YES, we discussed the diagnosis/diagnoses , the treatment options, treatment(s) recommended vs. no treatment. We discussed risks and benefits of treatment options, treatment recommendations vs. no treatment. . . Patient continues to meet criteria for attention deficit hyperactivity disorder. Pt does not meet criteria for bipolar disorder, major depressive disorder, or other persistent mood disorders. Will continue to monitor the patient for presentation of new symptoms or behaviors. . . FDA approved stimulant medication for this age group. Discussed/Denies adverse effects from medication including HTN, tachycardia, insomnia, irritability, headache, or decreased appetite. . . Discussed lifestyle/diet changes to help improve BMI. Recommend increasing activity, reducing portion sizes, limiting carbohydrates, increasing protein as appropriate. Discussed referral to rn community if problem persists. . . Continue current treatment plan, tolerating meds well, compliant; call for problems . GOALS: Maintain medication regimen Maintain mood stability Maintain anxiety stability Maintain social and interpersonal functioning Maintain attention and hyperactivity . . Currently at low risk for self harm. Denies ongoing feelings of hopelessness. Denies ongoing suicidal ideation, intent or plan in session. . 12/04/2023 ADHD, predominantly inattentive type (ICD-10 - F90.0) 01/14/2024 ADHD, predominantly inattentive type (ICD-10 - F90.0) 01/17/2024 ADHD, predominantly inattentive type (ICD-10 - F90.0) OARRS reviewed . Informed consent obtained: YES, we discussed the diagnosis/diagnoses , the treatment options, treatment(s) recommended vs. no treatment. We discussed risks and benefits of treatment options, treatment recommendations vs. no treatment. . . Patient continues to meet criteria for attention deficit hyperactivity disorder. Pt does not meet criteria for bipolar disorder, major depressive disorder, or other persistent mood disorders. Will continue to monitor the patient for presentation of new symptoms or behaviors. . . FDA approved stimulant medication for this age group. Discussed/Denies adverse effects from medication including HTN, tachycardia, insomnia, irritability, headache, or decreased appetite. . . Discussed lifestyle/diet changes to help improve BMI. Recommend increasing activity, reducing portion sizes, limiting carbohydrates, increasing protein as appropriate. Discussed referral to rn community if problem persists. . . Continue current treatment plan, tolerating meds well, compliant; call for problems . GOALS: Maintain medication regimen Maintain mood stability Maintain anxiety stability Maintain social and interpersonal functioning Maintain attention and hyperactivity . . Currently at low risk for self harm. Denies ongoing feelings of hopelessness. Denies ongoing suicidal ideation, intent or plan in session. . 02/25/2024 Other dental procedure status (ICD-10 - Z98.818) 03/28/2024 Dental caries on pit and fissure surface penetrating into dentin (ICD-10 - K02.52) 06/16/2024 Bipolar 1 disorder, depressed, moderate (ICD-10 - F31.32) stable cont treatment . . Informed consent obtained: YES, we discussed the diagnosis/diagnoses , the treatment options, treatment(s) recommended vs. no treatment. We discussed risks and benefits of treatment options, treatment recommendations vs. no treatment. . . Discussed lifestyle/diet changes to help improve BMI. Recommend increasing activity, reducing portion sizes, limiting carbohydrates, increasing protein as appropriate. Discussed referral to rn community if problem persists. . . FDA approved medication for this age group include Selective Serotonin Reuptake Inhibitors (SSRI) and Selective Norepinephrine Reuptake Inhibitors (SNRI). Selective serotonin reuptake inhibitors? can cause nausea, headache, upset stomach, diarrhea, constipation, anxiety, irritability, and sexual dysfunction. Please monitor for worsening of symptoms, especially suicidal ideations or morbid thoughts, and call office and or go to the emergency department immediately . 06/17/2024 Dental caries on pit and fissure surface penetrating into dentin (ICD-10 - K02.52) 07/31/2024 ADHD, predominantly inattentive type (ICD-10 - F90.0) 06/16/2024 ADHD, predominantly inattentive type (ICD-10 - F90.0) OARRS reviewed . Informed consent obtained: YES, we discussed the diagnosis/diagnoses , the treatment options, treatment(s) recommended vs. no treatment. We discussed risks and benefits of treatment options, treatment recommendations vs. no treatment. . . Patient continues to meet criteria for attention deficit hyperactivity disorder. Pt does not meet criteria for bipolar disorder, major depressive disorder, or other persistent mood disorders. Will continue to monitor the patient for presentation of new symptoms or behaviors. . . FDA approved stimulant medication for this age group. Discussed/Denies adverse effects from medication including HTN, tachycardia, insomnia, irritability, headache, or decreased appetite. . . Discussed lifestyle/diet changes to help improve BMI. Recommend increasing activity, reducing portion sizes, limiting carbohydrates, increasing protein as appropriate. Discussed referral to rn community if problem persists. . . Continue current treatment plan, tolerating meds well, compliant; call for problems . GOALS: Maintain medication regimen Maintain mood stability Maintain anxiety stability Maintain social and interpersonal functioning Maintain attention and hyperactivity . . Currently at low risk for self harm. Denies ongoing feelings of hopelessness. Denies ongoing suicidal ideation, intent or plan in session. . 02/25/2024 Encounter for dental examination and cleaning with abnormal findings (ICD-10 - Z01.21) 01/17/2024 Bipolar 1 disorder, depressed, moderate (ICD-10 - F31.32) . FDA approved medication for this age group include Selective Serotonin Reuptake Inhibitors (SSRI) and Selective Norepinephrine Reuptake Inhibitors (SNRI). Selective serotonin reuptake inhibitors? can cause nausea, headache, upset stomach, diarrhea, constipation, anxiety, irritability, and sexual dysfunction. Please monitor for worsening of symptoms, especially suicidal ideations or morbid thoughts, and call office and or go to the emergency department immediately . . Currently at low risk for self harm. Denies ongoing feelings of hopelessness. Denies ongoing suicidal ideation, intent or plan in session. . 10/22/2023 Bipolar 1 disorder, depressed, moderate (ICD-10 - F31.32) 02/25/2024 Dental caries on pit and fissure surface penetrating into dentin (ICD-10 - K02.52) 06/16/2024 Generalized Anxiety Disorder (TEENA) (ICD-10 - F41.1) . OARRS reviewed . Discussed seriousness of taking benzodiazepine medication daily and as needed, risks and benefits discussed including risk of addiction and accidental . Pt verbalized understanding. . High risk medications are drugs that have a heightened risk of causing significant patient harm when they are used in error. High risk medicines include medicines: with a low therapeutic index. that present a high risk when administered by the wrong route or when other system errors occur. Please notify provider for any concerns about your medications. . Plan Of Treatment Next Appt Details Provider Name:Valerie Munoz, 09/15/2024 09:30:00 AM, [address] [facility], [place], [address], Provider Name:Sameer garcia, 10/17/2024 01:30:00 PM, [address] [place], [address], Provider Name:Negrita Waters, 01/05/2025 03:30:00 PM, [address], [place], [address], Insurance Providers Payer Name Payer Address Payer Phone Subscriber Number Group Number Insured Name Patient Relationship to Insured Coverage Start Date Coverage End Date VICENTE BO DUAL-ELIG BLE [address] [place] [address] [id number] KHRIS LADD Self - patient is the insured 4 MEDICAID SEC TO MCARE ADV [address] [place] [address] [id number] KHRIS LADD Self - patient is the insured 4 [facility] [employer] E-termed 22 [address] [place] [address] [id number] KHRIS LADD Self - patient is the insured 1 [address] [facility] MEDICAID C after [employer] E-termed 22 [address] [place] [address] [phone] [id number] KHRIS LADD Self - patient is the insured 1 3 zDENTAL DQ [employer] E-termed 22 [address] [place] [address] [id number] KHRIS LADD Self - patient is the insured 1 3 zDental MEDICAID [employer] after [employer] E-termed 22 [address] [place] [address] [id number] KHRIS LADD Self - patient is the insured 1 3 Dental [employer] [place] [address] [place] [address] [id number] KHRIS LADD Self - patient is the insured 3 4 Dental Wrap [facility] CareSourc e [address] [place] [address] [id number] KHRIS LADD Self - patient is the insured 3 4 MEDICARE CGS [address] [place] [address] [id number] KHRIS LADD Self - patient is the insured 4 BH MEDICAID [place] [address] [place] [address] [id number] KHRIS LADD Self - patient is the insured 4 DENTAL [facility]M [facility] [address] [address] [place] [address] [id number] KHRIS LADD Self - patient is the insured 4 Medical (General) History Medical History History ICD Code bipolar 1 disorder Hypothyroidism Surgical History Surgery Date(Month/Year) skin nodules -biopsy 06/2023
--- OUTSIDE RECORDS SUMMARY | 2024-09-03 17:38 | XMS_ITS | Encounter Summary ---
Author Organization [facility] Address [address] [place] [address] Phone Care Team Providers Care Him Clerk Name Role Phone Chato Bradshaw DO Primary Care Provider + Rj Ashby MD Unavailable [phone] Encounter Details Date Type Department Care Team (Late st Contact Info) Description 04/25/2022 Orders Only [facility] [address] [place] [address] Conversion, Onbase Social History Tobacco Use Types Packs/Day Years Used Date Smoking Tobacco: Never Assessed Comments Unknown Sex and Gender Information Value Date Recorded Sex Assigned at Not on file Legal Sex Female 9:30 PM EST Gender Identity Not on file Sexual Orientation Not on file documented as of this encounter Plan of Treatment Upcoming Encounters Date Type Department Care Team (Late st Contact Info) Description 09/05/2024 1:20 PM EDT Office Visit [facility] [address] [facility] [address] [place] [address] Rj Ashby MD [address] [facility] 2, [address] [place], [place] [id number] Scheduled Orders Name Type Priority Associated Diagnoses Orde r Schedule OUTSIDE LAB SCAN Lab Ordered: 04/25/2022 documented as of this encounter Visit Diagnoses Not on filedocumented in this encounter Care Teams Him Clerk Relationship Specialty Start Date End Date Chato Bradshaw DO [address] [place] [address] PCP - General 03/19/19 Rj Ashby MD [address] [facility] 3, [facility] [address] [place] [address] Consulting Physician Cardiology 04/13/23 documented as of this encounter
--- OUTSIDE RECORDS SUMMARY | 2024-09-03 17:38 | XMS_ITS | Encounter Summary ---
Author Organization [facility] Address [address] [place] [address] Phone Care Team Providers Care Marine Specialist Name Role Phone Chato Bradshaw DO Primary Care Provider + Rj Ashby MD Unavailable [phone] Encounter Details Date Type Department Care Team (Late st Contact Info) Description 08/10/2022 Orders Only [facility] [address] [place] [address] Conversion, Onbase Social History Tobacco Use Types [...] Description 09/05/2024 1:20 PM EDT Office Visit [facility] [address] [facility] [address] [place] [address] Rj Ashby MD [address] [facility] 2, [address] [place], [place] [id number] Scheduled Orders Name Type Priority Associated Diagnoses Orde r Schedule OUTSIDE LAB SCAN Lab Ordered: 08/10/2022 documented as of this encounter Visit Diagnoses Not on filedocumented in this encounter Care Teams Marine Specialist Relationship Specialty Start Date End Date Cahto Bradshaw DO [address] [place] [address] PCP - General 03/19/19 Rj Ashby MD [address] [facility] 3, [facility] [address] [place] [address] Consulting Physician Cardiology 04/13/23 documented as of this encounter
--- OUTSIDE RECORDS SUMMARY | 2024-09-03 17:38 | XMS_ITS | Encounter Summary ---
Author Organization [facility] Address [address] [place] [address] Care Team Providers Care Graphite Mill Operator Name Role Phone Chato Bradshaw DO Primary Care Provider [phone] Encounter Details Date Type Department Care Team (Late st Contact Info) Description 11/14/2022 Orders Only [facility] [address] [place] [address] Provider, MD Tierra Social History Tobacco Use Types Packs/Day Years Used Date Smoking Tobacco: Former Cigarettes 1 05/14/1995 - 03/13/2021 Smokeless Tobacco: Never Alcohol Use Standard Drinks/Week Comments Yes 0 (1 standard drink = 0.6 oz pur e alcohol) Couple times a week Comments Unknown Sex and Gender Information Value Date Recorded Sex Assigned at Not on file Legal Sex Female 2:36 PM EST Gender Identity Not on file Sexual Orientation Not on file documented as of this encounter Plan of Treatment Upcoming Encounters Date Type Department Care Team (Late st Contact Info) Description 12/01/2024 2:15 PM EDT Office Visit [facility] Primary [facility] [address] [place] [address] Chato Bradshaw DO [address] [place] [address] 6 months & AWV documented as of this encounter Procedures Procedure Name Priority Date/Time Associated Diagnosis Comments HEMOGLOBIN A1C Routine 09/11/2022 LIPID PANEL Routine 04/25/2022 HM MAMMOGRAPHY Routine 06/03/2021 documented in this encounter Results * Hemoglobin A1C (09/11/2022) Hemoglobin A1C 7.0 % Estimated Avg Glucose 154 BLOOD SPECIMEN / Unknown Impressions Madyson Mckinley MA - 09/11/2022 A1C with Estimated Average Glu Date Collected Date Received Status Reported/Status Changed Priority 09/11/2022 7:58 AM Final 09/11/2022 10:30 AM Routine Facility: [facility] Specimen Source: Source, Unspecified Admitting Provider: Lonnie Major Ordered Date: 09/11/2022 7:58 AM Body Site: NA Attending Provider: Lonnie Major Ordering Provider: Lonnie Major Patient Class: Ambulatory Test Result Reference Out Of Range Units Corrected/Cancelled Hemoglobin A1C 7.0 4.3-5.6 High % Result Comments: Increased risk for diabetes: 5.7 - 6.4 diabetes: >6.4 glycemic control for adults with diabetes: <7.0 Estimated Average Glucose 154 mg/dL Result Comments: PERFORMED BY: [place] [address] PATHOLOGIST RAWHIDE TRIMMER REJI GOLDSMITH M.D. Performed By: [address] Historical Provider CHEMISTRY ORDERABLES Edit ed Result - Final * (ABNORMAL) Lipid Panel (04/25/2022) Cholesterol, Total 191 mg/dL HDL 106(A) 35 - 70 mg/dL LDL Calculated 56 0 - 160 mg/dL Triglycerides 135 mg/dL Chol/HDL Ratio 27 VLDL Cholesterol non HDL BLOOD SPECIMEN / Unknown Historical Provider CHEMISTRY ORDERABLES Edit ed Result - Final * HM MAMMOGRAPHY (06/03/2021) Mammography, External Anatomical Region Laterality Modality Other Impressions 06/03/2021 MA Mamm Screen w/CAD if perf and 3D Michael on 06-03-2021 MA Mamm Screen w/CAD if perf and 3D Michael Exam Date/Time: 06/01/2021 16:41 EDT Reason for Exam: Z12.31 Report IMPRESSION: BIRADS 1 NEGATIVE, NORMAL INTERVAL FOLLOW-UP.12 MONTH RECALL. CLINICAL HISTORY: Z12.31. COMPARISON: None. COMMENT: Routine views and tomosynthesis views of both breasts were obtained. There are scattered areas of fibroglandular density. No dominant breast mass nor neoplastic calcifications are identified in either breast. This is a baseline study. The examination was reviewed with Computer Aided Detection. Breast Density: No Mammography is very important to your health. The current [employer] and National Comprehensive Cancer Network guidelines recommends annual mammography beginning at age 40. This facility utilizes a reminder system to ensure all patients receive reminder notifications at the appropriate time based on the recommendations of this exam. Board Certified Radiologists. Accredited by the ACR and FDA. FINAL REPORT Dictated: 06/03/2021 2:59 pm Jose Al M.D. Signed (Electronic Signature): 06/03/2021 2:59 pm Signed by: Jose Al M.D. Transcribed by: FLORY Technologist: [email or web address] Assessment: BI-RADS Category 1-Negative Recommendation: Normal interval follow-up Normal [facility] Consent for Treatment on 06-01-2021 us Historical Provider [facility] Edited Result - Final documented in this encounter Visit Diagnoses Not on filedocumented in this encounter Care Teams Graphite Mill Operator Relationship Specialty Start Date End Date Chato Bradshaw DO PCP - General Family Medicine 06/21/21 documented as of this encounter
--- OUTSIDE RECORDS SUMMARY | 2024-09-03 17:38 | XMS_ITS | Encounter Summary ---
Author Organization [facility] tem Address [id number] [address] [place] [address] Care Team Providers Care Process Checker Name Role Phone Chato Bradshaw DO Primary Care Provider [phone] Encounter Details Date Type Department Care Team (Latest Contact Info) Description 08/29/2024 Travel Social History Tobacco Use Types Packs/Day Years [...] Description 09/30/2024 11:30 AM EDT Office Visit [facility] [address] [place] [address] Alonso Pizano MD [address] [place] [address] 08/19/2025 1:00 PM EDT Appointment [facility] - [facility] [address] [place] [phone] Alonso Pizano MD [address] [place] [address] 08/19/2025 2:00 PM EDT Appointment [facility] [address] [place] [phone] Alonso Pizano MD [address] [place] [address] 09/01/2025 2:00 PM EDT Office Visit [facility] [address] [place] [address] Alonso Pizano MD [address] [place] [address] documented as of this encounter Goals Goal Patient Goal Type Associated Problems Recent Progress Patient-Stated? Author Home General Yes Gisela Woody, EXTRACTIONS TECHNOLOGIST Note: Evaluation of progress towards goal: Discharge home with family support/ self care documented as of this encounter Visit Diagnoses Not on filedocumented in this encounter Care Teams Process Checker Relationship Specialty Start Date End Date Chato Bradshaw DO PCP - General Family Medicine 07/07/21 documented as of this encounter
--- OUTSIDE RECORDS SUMMARY | 2024-09-03 17:38 | XMS_ITS | Encounter Summary ---
Author Organization [facility] Address [address] [place] [address] Care Team Providers Care Brush Machine Setter Name Role Phone Chato Bradshaw MD Primary Care Provider [phone] Encounter Details Date Type Department Care Team (Late st Contact Info) Description 12/11/2022 Abstract [facility] [address] [place] [phone] Sai Crawley MD [address] [facility] [address] [place] [address] Social History Tobacco Use Types Packs/Day Years [...] on filedocumented in this encounter Care Teams Brush Machine Setter Relationship Specialty Start Date End Date Chato Bradshaw MD [address] [place] [address] PCP - General Pediatrics 08/28/22 documented as of this encounter
--- OUTSIDE RECORDS SUMMARY | 2024-09-03 17:38 | XMS_ITS | Referral Summary ---
Author Organization [facility] Address [address] [place] [address] Care Team Providers Care Header Dock Name Role Phone Unavailable Primary Care Provider Unavailabl e Social History Tobacco Use Types Packs/Day Years Used Date Smoking Tobacco: Never Assessed [place] Safety & Environment Answer Date Rec orded Fear of Current or Ex-Partner Not on file Emotionally Abused Not on file 05/10/2023 Physically Abused Not on file 05/10/2023 Sexually Abused Not on file 05/10/2023 Physically or Sexually Abused Not on file Comments Unknown Sex and Gender Information Value Date Recorded Sex Assigned at Not on file Legal Sex Female 10:20 PM EDT Gender Identity Not on file Sexual Orientation Not on file Last Filed Vital Signs Vital Sign Reading Time Taken Comments Blood Pressure 129/93 08/29/2021 1:20 PM EDT Pulse 71 09/26/2021 2:05 PM EDT Temperature - - Respiratory Rate - - Oxygen Saturation 100% 09/26/2021 2:05 PM EDT Inhaled Oxygen Concentration - - Weight 52.1 kg (114 lb 12.8 oz) 09/26/2021 1:56 PM EDT Height 162.6 cm (5' 4 ) 09/26/2021 1:52 PM EDT Body Mass Index 19.71 09/26/2021 1:52 PM EDT Plan of Treatment Not on file Insurance [employer] [place] [employer]
--- OUTSIDE RECORDS SUMMARY | 2024-09-03 17:38 | XMS_ITS | Clinical Summary ---
Author Organization [facility] Address [address] [place] [address] Care Team Providers Care Development System Efficiency Manager Name Role Phone Luis Miguel Bradshawory Damaris MARRUFO Primary Care Provider [phone] Allergies Active Allergy Reactions Criticality Noted Date Comments Benazepril Other (See Comments) 01/28/2019 Meperidine Nausea And Vomiting Medium 06/28/2021 Latex Rash Low 06/28/2021 Statins 11/15/2022 Vortioxetine Other (See Comments) 01/28/2019 Medications albuterol (ACCUNEB) 0.63 MG/3ML nebulizer solution Take 3 mLs by nebulization every 4 hours as needed for Wheezing Active amLODIPine (NORVASC) 10 MG tablet Take 0.5 tablets by mouth daily 021 Active cetirizine (ZYRTEC) 10 MG tablet Take 1 tablet by mouth daily 023 Active clopidogrel (PLAVIX) 75 MG tablet every 24 hours 023 Active fluticasone (FLONASE) 50 MCG/ACT nasal spray SPRAY 1 SPRAY INTO EACH NOSTRIL TWICE A DAY 023 Active gabapentin (NEURONTIN) 300 MG capsule Take 1 capsule by mouth. 023 Active TRUE METRIX BLOOD GLUCOSE TEST strip TEST BLOOD SUGAR UP TO 10 TIMES A DAY 023 Active LORazepam (ATIVAN) 0.5 MG tablet Take 1 tablet by mouth nightly. Active ondansetron (ZOFRAN-ODT) 4 MG disintegrating tablet DISSOLVE 1 TABLET ON THE TONGUE TWICE DAILY NEEDED FOR NAUSEA AND VOMITING Active celecoxib (CELEBREX) 100 MG capsule Take 1 capsule by mouth 2 times daily 180 capsule 3 Active fenofibrate (TRICOR) 145 MG tablet Fenofibrate Nanocrystallized Active 145 MG PO Daily May 26, 2021 1:00am Active mupirocin (BACTROBAN) 2 % ointment by Nasal route Active rivaroxaban (XARELTO) 2.5 MG TABS tablet Take by mouth Active albuterol sulfate HFA (PROVENTIL HFA) 108 (90 Base) MCG/ACT inhaler Inhale 2 puffs into the lungs every 4 hours as needed for Wheezing 18 g 5 023 Active ketoconazole (NIZORAL) 2 % shampoo USE SHAMPOO ONCE DAILY NEEDED 120 mL 1 023 Active DUPIXENT 300 MG/2ML SOPN injection Active doxepin (SINEQUAN) 10 MG capsule TAKE 1 CAPSULE BY MOUTH AT NIGHT Active desvenlafaxine succinate (PRISTIQ) 25 MG TB24 extended release tablet 3 tablets daily Active methylPREDNISolo ne (MEDROL DOSEPACK) 4 MG tablet Take by mouth. 1 kit Active lisdexamfetamine (VYVANSE) 50 MG capsule Take 1 capsule by mouth every morning. Active methylPREDNISolo ne (MEDROL DOSEPACK) 4 MG tablet Take by mouth. 1 kit Active valsartan (DIOVAN) 80 MG tabletIndication s:Primary hypertension TAKE 1 TABLET BY MOUTH EVERY DAY 90 tablet 1 Active amLODIPine-valsa rtan (EXFORGE) 5-160 MG per tablet Take 1 tablet by mouth daily 01/22 Active nystatin (MYCOSTATIN) 374916 UNIT/ML suspension Nystatin Active 5 ML PO Four times daily 200 September 10, 2023 12:00am swish and swallow 06/24/2 024 Active ofloxacin (OCUFLOX) 0.3 % solution INSTILL 1 DROP INTO RIGHT EYE 4 TIMES A DAY BEGIN AFTER 1ST POST-OP EXAM Active prednisoLONE acetate (PRED FORTE) 1 % ophthalmic suspension PLACE 1 DROP INTO RIGHT EYE 4 TIMES A DAY *BEGIN AFTER FIRST POST-OP EXAM* 025 Active triamcinolone (KENALOG) 0.1 % cream Triamcinolone Acetonide Active APPLIC TOPICAL September 10, 2023 12:00am 024 Active valACYclovir (VALTREX) 500 MG tablet Take 1 tablet by mouth daily Active insulin lispro, 1 Unit Dial, (HUMALOG KWIKPEN) 100 UNIT/ML SOPNIndications: Type 1 diabetes mellitus with diabetic chronic kidney disease, unspecified CKD stage ([facility]) Dosing per insulin pump. Max dosing 37 units per day. 10 mL 025 Active levothyroxine (SYNTHROID) 50 MCG tabletIndication s:Other specified hypothyroidism Take 1 tablet by mouth daily 90 tablet Active aspirin 81 MG chewable tablet Take 1 tablet by mouth daily 30 tablet 025 Active vitamin D (VITAMIN D3) 50 MCG (2000 UT) CAPS capsule Take 1 capsule by mouth daily 90 capsule Active estrogens, conjugated, (PREMARIN) 0.3 MG tabletIndication s:Hormone imbalance Take 1 tablet by mouth daily 21 tablet 025 Active alirocumab (PRALUENT) 75 MG/ML SOAJ injection penIndications:M ixed hyperlipidemia due to type 2 diabetes mellitus ([facility]) Inject 1 mL into the skin every 14 days 2.24 mL 025 Active Insulin Pump Accessories MISCIndications: Type 1 diabetes mellitus with diabetic chronic kidney disease, unspecified CKD stage ([facility]) 1 each by Does not apply route Daily 1 each 3 025 Active metoprolol tartrate (LOPRESSOR) 25 MG tablet Take 0.5 tablets by mouth 2 times daily 180 tablet 025 Active pantoprazole (PROTONIX) 40 MG tabletIndication s:Esophageal dysphagia,Gastro esophageal reflux disease, unspecified whether esophagitis present TAKE 1 TABLET BY MOUTH EVERY DAY 90 tablet 025 Active fluticasone furoate-vilanter ol (BREO ELLIPTA) 200-25 MCG/ACT AEPB inhalerIndicatio ns:Chronic obstructive pulmonary disease, unspecified COPD type (HCC) INHALE 1 PUFF BY MOUTH ONCE A DAY 60 each 5 025 Active famotidine (PEPCID) 20 MG tablet TAKE 1 TABLET BY MOUTH TWICE A DAY 180 tablet 1 025 Active ibuprofen (ADVIL;MOTRIN) 800 MG tablet TAKE 1 TABLET BY MOUTH EVERY 8 HOURS NEEDED FOR PAIN 120 tablet 1 025 Active HUMALOG 100 UNIT/ML SOLN injection vial DOSING PER INSULIN PUMP. MAX DOSING 37 UNITS PER DAY. 10 mL 5 025 Active progesterone (PROMETRIUM) 200 MG CAPS capsuleIndicatio ns:Hormone imbalance TAKE 1 CAPSULE BY MOUTH EVERY DAY AT NIGHT 90 capsule 025 Active insulin lispro (HUMALOG) 100 UNIT/ML SOLN injection vial Inject into the skin 08/21 Discontinued ibuprofen (ADVIL;MOTRIN) 800 MG tablet Take 1 tablet by mouth every 8 hours as needed for Pain 120 tablet 1 025 08/14 Discontinued progesterone (PROMETRIUM) 200 MG CAPS capsuleIndicatio ns:Hormone imbalance Take 1 capsule by mouth nightly 90 capsule 025 08/25 Discontinued Active Problems Problem Noted Date Diagnosed Date Statin myopathy 08/21/2024 Moderate major depression 05/29/2024 Pituitary adenoma 05/29/2024 Mixed hyperlipidemia due to type 2 diabetes issac itus 05/29/2024 Esophageal dysphagia 01/03/2024 History of reconstructive repair of rectocele GERD (gastroesophageal reflux disease) Primary hypertension 06/27/2021 Type 1 diabetes mellitus 06/27/2021 Peripheral arterial disease 06/19/2021 Encounters Date Type Department Care Team Description 08/25/2024 Refill [facility] [address] [place] [id number] Chato Bradshaw, DO Medication Refill 08/20/2024 Refill [facility] [address] [place] [id number] Chato Bradshaw, DO Medication Refill 08/20/2024 Telephone [facility] [address] [phone] Kezia Munoz Juwan Medication Management (statin) 08/14/[address] [address] Chato Bradshaw, DO Medication Refill 07/18/2024 7:30 AM EDT Telemedicine [address] [address] Teressa Valle, NEERU - DRUGLESS PHYSICIAN Medicare annual wellness visit, subsequent (Primary Dx) 07/10/[address] [address] Chato Brdashaw, DO 06/26/2024 Refill [facility] [address] [place] [address] Zain Randall MD Medication Refill 06/26/[address] [address] Chato Bradshaw, DO Medication Refill 06/25/2024 Refill [facility] [address] [place] [address] Lona Rosario, COMMUNICATIONS SCIENTIST - DRUGLESS PHYSICIAN Medication Refill from Last 3 Months Family History Medical History Relation Name Comments No Known Problems Brother No Known Problems Father No Known Problems Maternal Grandfather No Known Problems Maternal Grandmother No Known Problems Mother No Known Problems Paternal Grandfather No Known Problems Paternal Grandmother Crohn's Disease Sister Diabetes Sister Colon Cancer Neg Hx Relation Name Status Comments Brother Father Maternal Grandfather Maternal Grandmother Mother Paternal Grandfather Paternal Grandmother Sister Alive Social History Tobacco Use Types Packs/Day Years Used Date Smoking Tobacco: Former Cigarettes 1 36 1 98 - 2021 Smokeless Tobacco: Never Tobacco Cessation:Counseling Given: No Alcohol Use Standard Drinks/Week Comments Yes 3 (1 standard drink = 0.6 oz pur e alcohol) Couple times a week [facility] Utilities Answer Date Recorded In the past 12 months has e [employer], [employer], or [employer] threatened to shut off services in your [...] place to sleep or slept in a chcf (including now)? No 12/27/2022 Housing Stability Vital Sign Answer Maurice e Recorded In the last 12 months, was t here a time when you were not able to pay the mortgage or rent on time? No 05/29/2024 In the past 12 months, how m any times have you moved where you were living? 0 05/29/2024 At any time in the past 12 m [facility], were you homeless or living in a chcf (including now)? No 05/29/2024 Food Insecurity Answer [...] Sign Reading Time Taken Comments Blood Pressure 126/76 05/29/2024 3:27 PM EDT Pulse 82 05/29/2024 3:27 PM EDT Temperature 36.1 C (97 F) 05/29/2024 3:27 PM EDT Respiratory Rate 18 02/22/2024 12:45 PM EST Oxygen Saturation 99% 05/29/2024 3:27 PM EDT Inhaled Oxygen Concentration - - Weight 57.3 kg (126 lb 6.4 oz) 05/29/2024 3:27 P M EDT Height 162.6 cm (5' 4 ) 05/29/2024 3:27 PM EDT Body Mass Index 21.7 05/29/2024 3:27 PM EDT Plan of Treatment Upcoming Encounters Date Type Department Care Team (Late st Contact Info) Description 12/01/2024 2:15 PM EDT Office Visit [facility] [address] [place] [address] Chato Bradshaw, [address] [place] [address] 6 months & AWV Health Maintenance Due Date Last Done Comments HIV screen 1981 Diabetic Alb to Cr ratio (uACR) test 1984 Hepatitis C screen 1984 Hepatitis B vaccine (1 of 3 - 19+ 3-dose series) 1985 Pneumococcal 50+ years Vaccine (1 of 2 - PCV) 1985 Colonoscopy 12/15/2011 Colorectal Cancer Screen 12/15/2011 FIT/FOBT: Average risk 12/15/2011 Fecal-DNA (Cologuard): Average risk 12/15/2011 Sigmoidoscopy/CT colonography 12/15/2011 DTaP/Tdap/Td vaccine (3 - Tdap) 11/01/2014 11/01/2004, 12/31/1977 Shingles vaccine (1 of 2) 2016 COVID-19 Vaccine (1 - season) 2023 Flu vaccine (Season Ended) 2024 Diabetic foot exam 11/05/2024 11/06/2023, 0 11/06/2023, 05/08/2023, Additional history exists Diabetic retinal exam 12/31/2024 01/01/2024 Breast cancer screen 01/02/2025 01/03/2024, 06/04/19 22 GFR test (Diabetes, CKD 3-4, OR last GFR 15-59) 01/02/2025 01/03/2024, 02/19/2023, 07/02/2021, Additional history exists Lipids 01/02/2025 01/03/2024, 04/25/2022 Lung Cancer Screening &/or Counseling 01/02/2025 01/03/2024, 05/21/2023 A1C test (Diabetic or Prediabetic) 05/29/2025 05/29/2024, 11/06/2023, 05/08/2023, Additional history exists Depression Monitoring 07/18/2025 07/18/2024, 025 Annual Wellness Visit (Medicare) 07/19/2025 07/18/2024 Depression Screen Discontinued 07/18/2024, 07/18/2024 Hepatitis A vaccine Aged Out No longe r eligible based on patient's age to complete this topic Hib vaccine Aged Out No longer eligi ble based on patient's age to complete this topic Meningococcal (ACWY) vaccine Aged Out No longer eligible based on patient's age to complete this topic Meningococcal B vaccine Aged Out No l onger eligible based on patient's age to complete this topic Polio vaccine Aged Out No longer elig ible based on patient's age to complete this topic Procedures Procedure Name Priority Date/Time Associated Diagnosis Comments POCT GLYCOSYLATED HEMOGLOBIN (HGB A1C) Routine 05/29/2024 4:18 PM EDT Type 1 diabetes mellitus with diabetic chronic kidney disease, unspecified CKD stage (HCC) [facility] DIGITAL SCREEN BILATERAL Routine 01/03/2024 2:57 PM EDT Screening mammogram for breast cancer COMPREHENSIVE METABOLIC PANEL Routine 01/03/2024 1:36 PM EDT Primary hypertension LIPID PANEL Routine 01/03/2024 1:36 PM EDT Peripheral arterial disease Mixed hyperlipidemia due to type 2 diabetes mellitus (HCC) CT LUNG SCREENING (INITIAL/ANNUAL) Routine 01/03/2024 1:05 PM EDT Cigarette nicotine dependence without complication DIABETES EYE EXAM Routine 01/01/2024 11:33 AM EDT from Last 3 Months or Most Recently Relevant to Health Maintenance Results * POCT glycosylated hemoglobin (Hb A1C) (05/29/2024 4:18 PM EDT) Hemoglobin A1C 7.0 % BLOOD SPECIMEN / Unknown 05/29/2024 4:18 PM EDT Chato Bradshaw DO POINT OF CARE TEST ORDERABLES Final Result * [facility] DIGITAL SCREEN BILATERAL (01/03/2024 2:57 PM EDT) Anatomical Region Laterality Modality Breast Bilateral Mammography 01/12/2024 2:23 PM EDT Impressions 01/12/2024 2:25 PM EDT No mammographic evidence for malignancy. BIRADS: BIRADS - CATEGORY 1 Negative, no evidence of malignancy. Normal interval follow-up is recommended in 12 months. OVERALL ASSESSMENT - NEGATIVE A letter of notification will be sent to the patient regarding the results. The [employer] recommends annual mammograms for women 40 years and older. Performing Facility: [facility], [place] [address] Narrative 01/12/2024 2:25 PM EDT EXAMINATION: SCREENING DIGITAL BILATERAL MAMMOGRAM WITH TOMOSYNTHESIS, 01/03/2024 1:45 pm TECHNIQUE: Screening mammography of the bilateral breasts was performed with tomosynthesis. 2D standard and 3D tomosynthesis combination imaging performed through both breasts in the MLO and CC projection. Computer aided detection was utilized in the interpretation of this exam. COMPARISON: Prior mammogram performed 06/01/2021 HISTORY: Screening. Soliser-Fernandazick v.8 Estimated Lifetime Risk: 3.42% As per [employer] and [employer] guidelines, a calculated lifetime risk score higher than 20% qualifies as higher than average risk. Patients at higher than average risk should consider adjunctive screening modalities such as screening contrast enhanced breast MRI. Breast cancer risk score is calculated based on information provided by the patient at time of visit in addition to a patient's readily available medical history. Please note that inadequate breast health history, which is predominantly based on patient reported data, may result in an inaccurate calculation. FINDINGS: There are scattered areas of fibroglandular density. There is no new dominant mass, suspicious microcalcification, or area of architectural distortion. Chato Bradshaw DO [facility] [place] ORDERABLES Fi nal Result * (ABNORMAL) Lipid Panel (01/03/2024 1:36 PM EDT) Cholesterol, Total 150 0 - 199 mg/dL 01/03/2024 4:10 PM EDT [facility] Comment:ATP III Cholesterol classification is Desirable. Triglycerides 77 0 - 150 mg/dL 01/03/2024 4:10 PM EDT [facility] Comment:ATP III Triglyceride s Classification is Normal. HDL 81(H) 40 - 59 mg/dL 01/03/2024 4:10 PM EDT [facility] Comment: ATP III HDL Cholesterol Classification is high. Expected Values: Males: >55 = No Risk 35-55 = Moderate Risk <35 = High Risk Females: >65 = No Risk 45-65 = Moderate Risk <45 = High Risk NCEP Guidelines: Third Report July 2000 >59 = negative risk factor for CHD <40 = major risk factor for CHD LDL Cholesterol 54 0 - 129 mg/dL 01/03/2024 4:10 PM EDT [facility] Comment:ATP III LDL Classifi cation is Optimal. Blood BLOOD SPECIMEN / Unknown 01/03/2024 1:36 PM EDT 01/03/2024 2:48 PM EDT Chato Bradshaw DO CHEMISTRY ORDERABLES Final Re sult [facility] [address] [place] [id number], [facility] [phone] * (ABNORMAL) Comprehensive Metabolic Panel (01/03/2024 1:36 PM EDT) Sodium 138 135 - 144 mEq/L 01/03/2024 3:39 PM EDT [facility] Potassium 4.1 3.4 - 4.9 mEq/L 01/03/2024 3:39 PM EDT [facility] Chloride 100 95 - 107 mEq/L 01/03/2024 3:39 PM EDT [facility] CO2 25 20 - 31 mEq/L 01/03/2024 3:39 PM EDT [facility] Anion Gap 13 9 - 15 mEq/L 01/03/2024 4:10 PM EDT [facility] Glucose 167(H) 70 - 99 mg/dL 01/03/2024 3:39 PM EDT [facility] BUN 8 6 - 20 mg/dL 01/03/2024 3:39 PM EDT [facility] Creatinine 0.71 0.50 - 0.90 mg/dL 01/03/2024 3:39 PM EDT [facility] Est, Glom Filt Rate >90.0 >60 01/03/2024 3:39 PM EDT [facility] Comment: Pediatric calculator link https://www.kidney.org/professionals/kdoqi/gfr_calculatorped Effective Dec 19, 2021 These results are not intended for use in patients <18 years of age. eGFR results are calculated without a race factor using the 2020 CKD-EPI equation. Careful clinical correlation is recommended, particularly when comparing to results calculated using previous equations. The CKD-EPI equation is less accurate in patients with extremes of muscle mass, extra-renal metabolism of creatinine, excessive creatinine ingestion, or following therapy that affects renal tubular secretion. Calcium 9.1 8.5 - 9.9 mg/dL 01/03/2024 3:39 PM EDT [facility] Total Protein 6.4 6.3 - 8.0 g/dL 01/03/2024 3:39 PM EDT [facility] Albumin 4.0 3.5 - 4.6 g/dL 01/03/2024 3:39 PM EDT [facility] Total Bilirubin 0.3 0.2 - 0.7 mg/dL 01/03/2024 3:39 PM EDT [facility] Alkaline Phosphatase 133(H) 40 - 130 U/L 01/03/2024 3:39 PM EDT [facility] ALT 13 0 - 33 U/L 01/03/2024 3:39 PM EDT [facility] AST 17 0 - 35 U/L 01/03/2024 3:39 PM EDT [facility] Globulin 2.4 2.3 - 3.5 g/dL 01/03/2024 3:39 PM EDT [facility] Blood BLOOD SPECIMEN / Unknown 01/03/2024 1:36 PM EDT 01/03/2024 2:48 PM EDT Chato Bradshaw DO CHEMISTRY ORDERABLES Final Re sult [facility] [address] [place] [id number], [facility] [phone] * CT lung screen [Initial/Annual] (01/03/2024 1:05 PM EDT) Anatomical Region Laterality Modality Computed Tomogra phy 01/03/2024 1:30 PM EDT Impressions 01/03/2024 1:34 PM EDT Stable 6 mm right middle lobe nodule. Emphysema. Coronary artery disease. Lung-RADS 2 - Benign ([email or web address]) Management: 12 month screening LDCT Narrative 01/03/2024 1:34 PM EDT EXAMINATION: LOW DOSE SCREENING CT OF THE CHEST WITHOUT CONTRAST 01/03/2024 12:05 pm TECHNIQUE: Low dose lung cancer screening CT of the chest was performed without the administration of intravenous contrast. Multiplanar reformatted images are provided for review. Automated exposure control, iterative reconstruction, and/or weight based adjustment of the mA/kV was utilized to reduce the radiation dose to as low as reasonably achievable. COMPARISON: Chest CT 05/21/2023 HISTORY: ORDERING SYSTEM PROVIDED HISTORY: Cigarette nicotine dependence without complication TECHNOLOGIST PROVIDED HISTORY: Age: 57 y.o. Smoking History: Social History Tobacco Use Smoking status: Former Packs/day: 0.00 Years: 1 pack/day for 36.0 years (36.0 ttl pk-yrs) Types: Cigarettes Start date: 1985 Quit date: 2021 Years since quittin.7 Smokeless tobacco: Never Vaping Use Vaping status: Never Used Alcohol use: Yes Comment: Couple times a week Drug use: Never Pack years: 0 05/21/2023 Is there documentation of shared decision making?->Yes Does the patient show any signs or symptoms of lung cancer?->No Is this the first (baseline) CT or an annual exam?->Annual Is this a low dose CT or a routine CT?->Low Dose CT Smoking Status?->Former Date quit smoking? (must be within 15 years)->11/17/22 Pack Years->36 What reading provider will be dictating this exam?->CRC FINDINGS: There is a stable 6 mm right middle lobe nodule adjacent to the major fissure. There are no new lung nodules. There is stable emphysema. The airways are unremarkable. There is no pleural effusion. The heart and great vessels are normal in size. Coronary arterial calcifications are noted. There is no lymphadenopathy. There is no pericardial effusion. The imaged abdomen is unremarkable. There is no acute bony abnormality. Procedure Note Garland Merida MD - 01/03/2024 EXAMINATION: LOW DOSE SCREENING CT OF THE CHEST WITHOUT CONTRAST 01/03/2024 12:05 pm TECHNIQUE: Low dose lung cancer screening CT of the chest was performed without the administration of intravenous contrast. Multiplanar reformatted imagesare provided for review. Automated exposure control, iterativereconstruction, and/or weight based adjustment of the mA/kV was utilized to reduce the radiation dose to as low as reasonably achievable. COMPARISON: Chest CT 05/21/2023 HISTORY: ORDERING SYSTEM PROVIDED HISTORY: Cigarette nicotine dependence without complication TECHNOLOGIST PROVIDED HISTORY: Age: 57 y.o. Smoking History: Social History Tobacco Use Smoking status: Former Packs/day: 0.00 Years: 1 pack/day for 36.0 years (36.0 ttl pk-yrs) Types: Cigarettes Start date: 1985 Quit date: 2021 Years since quittin.7 Smokeless tobacco: Never Vaping Use Vaping status: Never Used Alcohol use: Yes Comment: Couple times a week Drug use: Never Pack years: 0 05/21/2023 Is there documentation of shared decision making?->Yes Does the patient show any signs or symptoms of lung cancer?->No Is this the first (baseline) CT or an annual exam?->Annual Is this a low dose CT or a routine CT?->Low Dose CT Smoking Status?->Former Date quit smoking? (must be within 15 years)->11/17/22 Pack Years->36 What reading provider will be dictating this exam?->CRC FINDINGS: There is a stable 6 mm right middle lobe nodule adjacent to the major fissure. There are no new lung nodules. There is stable emphysema.The airways are unremarkable. There is no pleural effusion. The heart and great vessels are normal in size. Coronary arterial calcifications are noted. There is no lymphadenopathy. There is no pericardial effusion. The imaged abdomen is unremarkable. There is no acute bony abnormality. IMPRESSION: Stable 6 mm right middle lobe nodule. Emphysema. Coronary artery disease. Lung-RADS 2 - Benign ([email or web address]) Management: 12 month screening LDCT Chato Bradshaw DO IMG CT ORDERABLES Final Resul t * [facility] DIABETES EYE EXAM (01/01/2024 11:33 AM EDT) Historical Provider HEALTH MAINTENANCE Final Result from Last 3 Months or Most Recently Relevant to Health Maintenance Insurance MEDICARE MEDICAID [place] [facility] MEDICARE on file Advance Directives Documents on File Type Date Recorded Patient [employer] Expl anation ACP-Advance Directive 07/05/2021 11:42 AM * Full Code (Latest Code Status on File) Date Activated Date Inactivated Comments 02/22/2024 10:55 AM 02/22/2024 3:28 PM * Full Code Date Activated Date Inactivated Comments 06/27/2021 3:49 PM 07/04/2021 6:12 PM Healthcare Agents on File Name Relationship Healthcare Agent Relationshi p Communication Aleida Oconnell Child Primary Decision Maker Care Teams Development System Efficiency Manager Relationship Specialty Start Date End Date Chato Bradshaw DO PCP - General Family Medicine 06/21/21
--- OUTSIDE RECORDS SUMMARY | 2024-09-03 17:38 | XMS_ITS | Encounter Summary ---
Author Organization Demetrio Arevalo [facility]on [facility] Address [address] [place] [address] Care Team Providers Care Ferry Terminal Supervisor Name Role Phone Augustine Chato Damaris MARRUFO Primary Care Provider [phone] Reason for Visit * Reason Onset Date Comments Medication Management 08/20/2024 statin Encounter Details Date Type Department Care Team (Late st Contact Info) Description 08/20/2024 Telephone [employer] [facility] [address] [place] [address] Kezia Munoz RPH Medication Management (statin) Social History Tobacco Use Types Packs/Day Years Used Date Smoking Tobacco: Former Cigarettes 1 36 1 986 - 2022 Smokeless Tobacco: Never Alcohol Use Standard Drinks/Week Comments Yes 3 (1 standard drink = 0.6 oz pur e alcohol) Couple times a week [facility] Utilities Answer Date Recorded In the past 12 months has [employer], oil, or water [employer], threatened to shut off services in your [...] place to sleep or slept in a long term (including now)? No 12/27/2022 Housing Stability Vital Sign Answer Maurice e Recorded In the last 12 months, was t here a time when you were not able to pay the mortgage or rent on time? No 05/29/2024 In the past 12 months, how m any times have you moved where you were living? 0 05/29/2024 At any time in the past 12 m [facility], were you homeless or living in a long term (including now)? No 05/29/2024 Food Insecurity Answer [...] Description 12/01/2024 2:15 PM EDT Office Visit [facility] [address] [place] [address] Chato Bradshaw DO [address] [place] [address] 6 months & AWV documented as of this encounter Visit Diagnoses Not on filedocumented in this encounter Additional Health Concerns Assessment Noted Time A fall risk assessment has been complete d for the patient 07/18/2024 1:11 PM EDT documented as of this encounter Care Teams Ferry Terminal Supervisor Relationship Specialty Start Date End Date Chato Bradshaw DO PCP - General Family Medicine 06/21/21 documented as of this encounter
--- OUTSIDE RECORDS SUMMARY | 2024-09-03 17:38 | XMS_ITS | Clinical Summary ---
Author Organization [facility] Address [address] [address] Care Team Providers Care Side Laster Staple Name Role Phone Unavailable Primary Care Provider [...] 09/26/2021 1:52 PM EDT Plan of Treatment Health Maintenance Due Date Last Done Comments CT Colonography 1966 Colonoscopy 1966 Colorectal Cancer Screening 1966 FIT-DNA 1966 FIT 1966 FOBT 1966 Sigmoidoscopy 1966 Depression Screening 1978 Pap Smear 12/15/1987 Cervical Cancer Screening 1996 HPV/Cotest 1996 Hepatitis B Vaccines (3 of 3 - 19+ 3-dose series) 05/04/2005 01/18/2005, 11/01/2004 Mammogram 2006 Adult Tetanus 11/01/2014 11/01/2004 Zoster Vaccines (1 of 2) 2016 Influenza Vaccine (Season Ended) 2024 HIB Vaccines Aged Out No longer eligi ble based on patient's age to complete this topic HPV Vaccines Aged Out No longer eligi ble based on patient's age to complete this topic IPV Vaccines Aged Out No longer eligi ble based on patient's age to complete this topic Meningococcal B Vaccine Aged Out No l onger eligible based on patient's age to complete this topic Meningococcal Vaccine Aged Out No nidia nik eligible based on patient's age to complete this topic Pneumococcal Vaccine: Pediatrics (0 to 5 Years) and At-Risk Patients (6 to 64 Years) Aged Out No longer eligible b ased on patient's age to complete this topic Rotavirus Vaccines Aged Out No longer eligible based on patient's age to complete this topic Insurance [employer] [place] [employer]
--- OUTSIDE RECORDS SUMMARY | 2024-09-03 17:38 | XMS_ITS | Encounter Summary ---
Author Organization [facility] Address [address] [place] [address] Care Team Providers Care Loan Teller Name Role Phone Chato Bradshaw MD Primary Care Provider [phone] Reason for Visit * Reason Comments Med Refill Encounter Details Date Type Department Care Team (Late st Contact Info) Description 10/10/2022 Refill [facility] [address] [facility] [address] [place] [address] Kenneth Petersen MD [address] [facility] [address] [place] [address] Lichen simplex chronicus Social History Tobacco Use Types Packs/Day Years [...] as of this encounter Visit Diagnoses Diagnosis Lichen simplex chronicus Lichenification and lichen simplex chronicus documented in this encounter Care Teams Loan Teller Relationship Specialty Start Date End Date Chato Bradshaw MD [address] [place] [address] PCP - General Pediatrics 08/28/22 documented as of this encounter
--- OUTSIDE RECORDS SUMMARY | 2024-09-03 17:38 | XMS_ITS | Encounter Summary ---
Author Organization Demetrio Arevaol [facility] Address [address] [place] [address] Care Team Providers Care Guest Services Associate Name Role Phone Chato Bradshaw DO Primary Care Provider [phone] Encounter Details Date Type Department Care Team (Late st Contact Info) Description 05/15/2023 Orders Only [facility] [address] [place], [place] [id number] Provider, MD Tierra Social History Tobacco Use Types Packs/Day Years Used Date Smoking Tobacco: Former Cigarettes 1 36 1 2021 Smokeless Tobacco: Never Alcohol Use Standard Drinks/Week Comments Yes 0 (1 standard drink = 0.6 oz pur e alcohol) Couple times a week Overall Financial Resource Strain (CARDIA) Answe r Date Recorded How hard is it for you to pa y for the very basics like food, housing, medical care, and heating? Not hard at all 12/27/2022 PHQ-2 Answer Date Recorded PHQ-9 Total Score 0 05/08/2023 Hunger Vital Sign Answer Date Recorded Within the past 12 months, y ou worried that your food would run out before you got the money to buy more. Never true 12/28/19 23 Within the past 12 months, t he food you bought just didn't last and you didn't have money to get more. Never true 12/27/2022 PRAPARE - Transportation Answer Date Re corded Lack of Transportation (Medical) Not on file 12/27/2022 In the past 12 months, has l ack of transportation kept you from meetings, work, or from getting things needed for daily living? No 12/27/2022 Housing Stability Vital Sign Answer [...] in a long-term (including now)? No 12/27/2022 Food Insecurity Answer Date Recorded Within the past 12 months, y ou worried that your food would run out before you got the money to buy more. 1 12/27/2022 Within the past 12 months, t he food you bought just didn't last and you didn't have money to get more. 1 12/27/2022 Comments Unknown Sex and Gender Information Value Date Recorded Sex Assigned at Not on file Legal Sex Female 2:36 PM EST Gender Identity Not on file Sexual Orientation Not on file documented as of this encounter Plan of Treatment Upcoming Encounters Date Type Department Care Team (Late st Contact Info) Description 12/01/2024 2:15 PM EDT Office Visit [facility] [address] [place] [address] Chato Bradshaw DO [address] [place] [address] 6 months & AWV documented as of this encounter Procedures Procedure Name Priority Date/Time Associated Diagnosis Comments MRI BRAIN AND CERV WO CONTRAST Routine 02/16/2010 2:53 PM EST documented in this encounter Results * MRI BRAIN AND CERV WO CONTRAST (02/16/2010 2:53 PM EST) Anatomical Region Laterality Modality Other us Historical Provider MD [facility] ORDERABLES Final Result documented in this encounter Visit Diagnoses Not on filedocumented in this encounter Care Teams Guest Services Associate Relationship Specialty Start Date End Date Chato Bradshaw DO PCP - General Family Medicine 06/21/21 documented as of this encounter
[2024-09-03] MEDS: 0.9 % SODIUM CHLORIDE 1,000 ML 1000 ML IV ×2 (18:00→20:21)
[2024-09-03] MEDS: ONDANSETRON PF 4 MG/2 ML VIAL IV (18:27)
--- NOTE | 2024-09-03 18:40 | CT_ITS ---
[address] [address] Patient Name: KHRIS LADD MRN: [id number] date: 1965 Sex: F Assigned Patient Location: ER Current Patient Location: ER Accession/Order Number: [id number] Exam Date: 09/03/2024 19:02 Report Date: 09/03/2024 19:15 At the request of: GÓMEZ MONTELONGO Procedure: CT abdomen pelvis w con CT abdomen pelvis w con 09/03/2024 6:40 PM SIGNS AND SYMPTOMS: Nausea, vomiting, diarrhea TECHNIQUE: Multidetector ct axial images of the abdomen and pelvis were obtained with IV contrast. Multiplanar reformats were performed and reviewed to further define anatomy and possible pathology. CT was performed with one or more of the following dose reduction techniques: Automated exposure control, adjustment of the mA and/or kV according to patient size, or use of iterative reconstruction technique. COMPARISON: None. FINDINGS: Lower Chest: Atherosclerotic changes are present in the thoracic aorta. ABDOMEN: Liver: Within normal limits. Bile Ducts: Normal caliber. Gallbladder: No calcified gallstones. Normal caliber wall. Pancreas: Within normal limits. Spleen: Within normal limits. Adrenals: Within normal limits. Kidneys: There is a simple cyst in the right renal cortex requiring no further follow-up. There are focal areas of renal cortical atrophy which may be vascular in nature or secondary to previous pyelonephritis. Pelvis: Reproductive Organs: No pelvic masses. Ureters: Within normal limits. Bladder: Within normal limits. Bowel: Normal caliber. There are uncomplicated colonic diverticula. No bowel obstruction. Mesenteric Lymph Nodes: No enlarged mesenteric lymph nodes. Peritoneum: No ascites or free air, no fluid collection. Vessels: Atherosclerotic changes are noted in the abdominal aorta and its branches. 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 Retroperitoneum: Within normal limits. Abdominal Wall: Within normal limits. Bones: There is a remote compression deformity of the superior endplate of L5. CT/CT abdomen pelvis w con IMPRESSION: No bowel obstruction or obstructive uropathy. Uncomplicated colonic diverticula are noted. 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 Impression dictated by: Lonnie Ayala M.D. 09/03/2024 7:15 PM Dictation Location: [place] [address] Electronically authenticated by: [id number] Y Date: 09/03/2024 19:15
[2024-09-03 18:41] LABS: Basophils Percent Auto 0.2 % (0.2-2.0); Eosinophils Percent Auto 0.1 % (0.9-7.0); Hematocrit 43.6 % (36.0-48.0); Hemoglobin 15.5 g/dL (12.0-16.0); Immature Granulocytes Abs Auto 0.02 10^3/uL (0.00-0.03); Immature Granulocytes Pct Auto 0.2 % (0.0-0.5); Lymphocytes Absolute Auto 1.2 10^3/uL (1.2-3.8); Lymphocytes Percent Auto 13.3 % (20.5-60.0); Mean Corpuscular HGB Conc 35.6 g/dL (29.9-35.2); Mean Corpuscular Hemoglobin 33.1 pg (26.7-34.0); Mean Corpuscular Volume 93.2 fL (81.0-99.0); Mean Platelet Volume 9.5 fL (9.5-13.5); Monocytes Absolute Auto 0.3 10^3/uL (0.3-0.8); Monocytes Percent Auto 3.8 % (1.7-12.0); Neutrophils Absolute Auto 7.2 10^3/uL (1.4-6.5); Neutrophils Percent Auto 82.4 % (43.0-75.0); Platelet Count 305 10^3/uL (150-450); Red Blood Count 4.68 10^6/uL (4.20-5.40); Red Cell Distribution Width 13.7 % (11.0-15.0); White Blood Count 8.8 10^3/uL (4.0-11.0)
[2024-09-03 19:01] LABS: Glucometer 168 mg/dL (74-106)
[2024-09-03 19:01] LABS: Acetone NEGATIVE (NEGATIVE)
[2024-09-03 19:06] LABS: Alanine Aminotransferase 24 U/L (14-59); Albumin Globulin Ratio 1.3; Albumin Level 3.9 g/dL (3.4-5.0); Alkaline Phosphatase 83 U/L (46-116); Anion Gap 15.1; Aspartate Amino Transferase 18 U/L (15-37); BUN Creatinine Ratio 16.9; Bilirubin Total 0.6 mg/dL (0.2-1.0); Calcium 8.9 mg/dL (8.5-10.1); Carbon Dioxide 28.8 mmol/L (21.0-32.0); Chloride 99 mmol/L (98-107); Estimated GFR (African America >60 (>=60 mL/min/1.73m^2); Estimated GFR (Non-African Ame >60 (>=60 mL/min/1.73m^2); Glucose 169 mg/dL (74-106); Lactate/Lactic Acid 1.2 mmol/L (0.4-2.0); Potassium 3.9 mmol/L (3.5-5.1); Sodium 139 mmol/L (136-145); Total Protein 6.9 g/dL (6.4-8.2); Troponin I High Sensitivity 7.2 pg/mL (4.0-51.3)
--- NOTE | 2024-09-03 19:25 | ED_ITS ---
Documented by User: Madyson Mims 09/03/24 20:38 HPI HPI - General Adult General Chief complaint: Nausea/Vomiting/Diarrhea Stated complaint: Nausea/Vomiting/Diarrhea Time Seen by Provider: 09/03/24 17:56 Source: patient Mode of arrival: walk-in Limitations: no limitations History of Present Illness HPI narrative: 58-year-old female presents here with a chief complaint nausea vomiting and diarrhea. Patient states she is type I diabetics been unable to keep any fluids or her pills down. She is alert and oriented. She said she had a recent total body scan by her vascular physician. Her symptoms of the signs of diarrhea began earlier today. She states she has a history of diverticulosis denies known history of diverticulitis. Denies fever or chills. She is hypertensive but states unable to keep any of her blood pressure medication down today. She states she has been monitoring her sugars and they have not been elevated. patient does wear an insulin Pump. Denies any recent hospitalizations or DKA Related Data Previous Rx's ?Medication ?Instructions ?Recorded zygiunhfafndljz-hgnyczzlsxwizkf-EG 5 ml PO Q6H PRN sin us symptoms 03/13/23 2 mg-30 mg-10 mg/5 mL oral syrup #118 mL (Bromfed DM) doxycycline hyclate 100 mg capsule 100 mg PO BID 7 day s #14 caps 03/13/23 methylprednisolone 4 mg tablets in 4 mg PO DAILY #21 e a 03/13/23 a dose pack (Medrol (Richard)) ondansetron HCl 4 mg tablet 4 mg PO DAILY PRN nausea a nd 09/03/24 vomiting 3 days #10 tabs Allergies Allergy/AdvReac Type Severity Reaction Status Date / Time Latex, Natural Rubber Allergy Severe Rash Verified 09/03/24 17:44 meperidine (From Demerol) AdvReac Severe Vomiting Verified 09/03/24 17:44 Review of Systems ROS Status of ROS 10 or more systems reviewed and unremark able except as noted in history and below PFSH PFSH Social History Smoking status: Former smoker Little interest or pleasure in doing things: not at all Feeling down, depressed, or hopeless: not at all Exam Narrative Exam Narrative: All Systems are negative except as noted/marked.All systems reviewed and otherwise negative Nurses note and vital signs reviewed and patient is not hypoxic. General: The patient appears well and in no apparent distress. Patient is resting comfortably on cart. Skin: Warm, dry, no pallor noted. There is no rash noted. Head: Normocephalic, atraumatic Eye: Normal conjunctiva, no drainage, EOMI. PERRL Ears, Nose, Mouth, and Throat: oral mucosa is moist. Nares patent. Mouth without vesicles. Ear canals patent. Tm's without Erythema Cardiovascular: Regular Rate and Rhythm Respiratory: Patient is in no distress, no accessory muscle use, lungs are clear to auscultation, no wheezing, rales or rhonchi Back: non-tender, no CVA tenderness bilaterally to percussion. GI: Normal bowel sounds, no tenderness to palpation, no masses appreciated. No rebound, guarding, or rigidity noted. Musculoskeletal: The patient has no evidence of calf tenderness, no pitting edema, symmetrical pulses noted bilaterally Neurological: A&O x4, normal speech Psychiatric: Cooperative Constitutional Vital Signs, click to edit/add: Last Vital Signs Temp 98 F 09/03/24 17:44 Pulse 87 09/03/24 19:31 Resp 15 09/03/24 19:31 BP 154/90 H 09/03/24 19:31 Pulse Ox 100 09/03/24 19:31 O2 Del Method Room Air 09/03/24 17:44 Course Vital Signs Vital signs: Vital Signs Temperature 98 F 09/03/24 17:44 Pulse Rate 94 H 09/03/24 17:44 Respiratory Rate 16 09/03/24 17:44 Blood Pressure 180/105 H 09/03/24 17:44 Oxygen Delivery Method Room Air 09/03/24 17:44 Temperature 98 F 09/03/24 17:44 Pulse Rate 87 09/03/24 19:31 Respiratory Rate 15 09/03/24 19:31 Blood Pressure 154/90 H 09/03/24 19:31 Pulse Oximetry 100 09/03/24 19:31 Oxygen Delivery Method Room Air 09/03/24 17:44 Medical Decision Making Differential Diagnosis Differential Diagnosis: nvd, dka Medical Records Medical records reviewed: Yes I reviewed the patient's medical records Medical records narrative: 58-year-old female presents here with a chief complaint nausea vomiting and diarrhea. Patient states she is type I diabetics been unable to keep any fluids or her pills down. She is alert and oriented. She said she had a recent total body scan by her vascular physician. Her symptoms of the signs of diarrhea began earlier today. She states she has a history of diverticulosis denies known history of diverticulitis. Denies fever or chills. She is hypertensive but states unable to keep any of her blood pressure medication down today. She states she has been monitoring her sugars and they have not been elevated. patient does wear an insulin Pump. Denies any recent hospitalizations or DKA Patient presented to the emergency room chief complaint nausea vomiting diarrhea. Has a history of diverticulosis but denies known history of diverticulitis. Patient is also a type I diabetic and does wear an insulin pump. Upon arrival to the emergency room IV was established blood was drawn including CBC CMP acid troponin. Liver enzymes CBC CMP are all within normal limits. Patient was given IV fluids. CT scan was performed to rule out diverticulitis. All was normal. Patient has been given 2 L of fluid Zofran and Reglan she feels much improved and comfortable going home. Patient with diagnosis of gastroenteritis with prescription of Zofran. She will follow-up with her primary care physician. Lab Data Lab results reviewed: Yes I reviewed the patient's lab results Labs: Lab Results 09/03/24 09/03/24 Range/Units 18:20 18:50 WBC 8.8 (4.0-11.0) 10^3/uL RBC 4.68 (4.20-5.40) 10^6/uL Hgb 15.5 (12.0-16.0) g/dL Hct 43.6 (36.0-48.0) % MCV 93.2 (81.0-99.0) fL MCH 33.1 (26.7-34.0) pg MCHC 35.6 H (29.9-35.2) g/dL RDW 13.7 (11.0-15.0) % Plt Count 305 (150-450) 10^3/uL MPV 9.5 (9.5-13.5) fL Neut % (Auto) 82.4 H (43.0-75.0) % Lymph % (Auto) 13.3 L (20.5-60.0) % Moffat % (Auto) 3.8 (1.7-12.0) % Eos % (Auto) 0.1 L (0.9-7.0) % Baso % (Auto) 0.2 (0.2-2.0) % Neut # (Auto) 7.2 H (1.4-6.5) 10^3/uL Lymph # (Auto) 1.2 (1.2-3.8) 10^3/uL Moffat # (Auto) 0.3 (0.3-0.8) 10^3/uL Eos # (Auto) 0.0 (0.0-0.7) 10^3/uL Baso # (Auto) 0.0 (0.0-0.1) 10^3/uL Abs Immat Gran (auto) 0.02 (0.00-0.03) 10^3/uL Imm/Tot Granulo (auto) 0.2 (0.0-0.5) % Sodium 139 (136-145) mmol/L Potassium 3.9 (3.5-5.1) mmol/L Chloride 99 (98-107) mmol/L Carbon Dioxide 28.8 (21.0-32.0) mmol/L Anion Gap 15.1 BUN 13.0 (7.0-18.0) mg/dL Creatinine 0.77 (0.55-1.02) mg/dL Est GFR ( Amer) >60 (>=60 mL/min/1.73m^2) Est GFR (Non-Af Amer) >60 (>=60 mL/min/1.73m^2) BUN/Creatinine Ratio 16.9 Glucose 169 H (74-106) mg/dL Lactate 1.2 (0.4-2.0) mmol/L Calcium 8.9 (8.5-10.1) mg/dL Total Bilirubin 0.6 (0.2-1.0) mg/dL AST 18 (15-37) U/L ALT 24 (14-59) U/L Alkaline Phosphatase 83 (46-116) U/L Troponin I High Sens 7.2 (4.0-51.3) pg/mL Total Protein 6.9 (6.4-8.2) g/dL Albumin 3.9 (3.4-5.0) g/dL Globulin 3.0 g/dL Albumin/Globulin Ratio 1.3 Lipase 19.0 (16.0-77.0) U/L Acetone, Qual Negative (NEGATIVE) POC Glucose 168 H (74-106) mg/dL Discharge Plan Discharge Chief Complaint: Nausea/Vomiting/Diarrhea Clinical Impression: Gastroenteritis Patient Disposition: Home, Self-Care Time of Disposition Decision: 20:32 Condition: Good Prescriptions / Home Meds: New ondansetron HCl 4 mg tablet 4 mg PO DAILY PRN (Reason: nausea and vomiting) 3 Days Qty: 10 0RF No Action doxycycline hyclate 100 mg capsule 100 mg PO BID 7 Days Qty: 14 0RF methylprednisolone [Medrol (Richard)] 4 mg tablets,dose pack 4 mg PO DAILY Qty: 21 0RF Rx Instructions: follow instructions on blister pack eqllgmnareqbvdc-vobnzsydk-EV [Bromfed DM] 2-30-10 mg/5 mL syrup 5 ml PO Q6H PRN (Reason: sinus symptoms) Qty: 118 0RF Print Language: Ethiopian Instructions: Gastroenteritis (ED), Acute Nausea and Vomiting (ED) Referrals: SIRI JOHNSON DO [Primary Care Provider, Family Practice] - 1 week Discharge Date/Time: 09/03/24 21:40 Documented by User: Ralph Rojas MD 09/03/24 21:43 HPI HPI - General Adult General Chief complaint: Nausea/Vomiting/Diarrhea Stated complaint: Nausea/Vomiting/Diarrhea Time Seen by Provider: 09/03/24 17:56 Related Data Previous Rx's ?Medication ?Instructions ?Recorded ocvxywnkaewpyqr-leafvogjprugvws-SA 5 ml PO Q6H PRN sin us symptoms 03/13/23 2 mg-30 mg-10 mg/5 mL oral syrup #118 mL (Bromfed DM) doxycycline hyclate 100 mg capsule 100 mg PO BID 7 day s #14 caps 03/13/23 methylprednisolone 4 mg tablets in 4 mg PO DAILY #21 e a 03/13/23 a dose pack (Medrol (Richard)) ondansetron HCl 4 mg tablet 4 mg PO DAILY PRN nausea a nd 09/03/24 vomiting 3 days #10 tabs Allergies Allergy/AdvReac Type Severity Reaction Status Date / Time Latex, Natural Rubber Allergy Severe Rash Verified 09/03/24 17:44 meperidine (From Demerol) AdvReac Severe Vomiting Verified 09/03/24 17:44 PFSH PFSH Social History Smoking status: Former smoker Little interest or pleasure in doing things: not at all Feeling down, depressed, or hopeless: not at all Exam Constitutional Vital Signs, click to edit/add: Last Vital Signs Temp 98 F 09/03/24 17:44 Pulse 87 09/03/24 19:31 Resp 15 09/03/24 19:31 BP 154/90 H 09/03/24 19:31 Pulse Ox 100 09/03/24 19:31 O2 Del Method Room Air 09/03/24 17:44 Course Vital Signs Vital signs: Vital Signs Temperature 98 F 09/03/24 17:44 Pulse Rate 94 H 09/03/24 17:44 Respiratory Rate 16 09/03/24 17:44 Blood Pressure 180/105 H 09/03/24 17:44 Oxygen Delivery Method Room Air 09/03/24 17:44 Temperature 98 F 09/03/24 17:44 Pulse Rate 87 09/03/24 19:31 Respiratory Rate 15 09/03/24 19:31 Blood Pressure 154/90 H 09/03/24 19:31 Pulse Oximetry 100 09/03/24 19:31 Oxygen Delivery Method Room Air 09/03/24 17:44 Medical Decision Making Medical Records Medical records narrative: 58-year-old female presents here with a chief complaint nausea vomiting and diarrhea. Patient states she is type I diabetics been unable to keep any fluids or her pills down. She is alert and oriented. She said she had a recent total body scan by her vascular physician. Her symptoms of the signs of diarrhea began earlier today. She states she has a history of diverticulosis denies known history of diverticulitis. Denies fever or chills. She is hypertensive but states unable to keep any of her blood pressure medication down today. She states she has been monitoring her sugars and they have not been elevated. patient does wear an insulin Pump. Denies any recent hospitalizations or DKA Patient presented to the emergency room chief complaint nausea vomiting diarrhea. Has a history of diverticulosis but denies known history of diverticulitis. Patient is also a type I diabetic and does wear an insulin pump. Upon arrival to the emergency room IV was established blood was drawn including CBC CMP acid troponin. Liver enzymes CBC CMP are all within normal limits. Patient was given IV fluids. CT scan was performed to rule out diverticulitis. All was normal. Patient has been given 2 L of fluid Zofran and Reglan she feels much improved and comfortable going home. Patient with diagnosis of gastroenteritis with prescription of Zofran. She will follow-up with her primary care physician. I, Dr Rojas, have reviewed the above progress note and course of action in the ER; agree with the above. I have personally gone over history and physical, and discussed disposition and treatment plan with the PA. Lab Data Labs: Lab Results 09/03/24 09/03/24 Range/Units 18:20 18:50 WBC 8.8 (4.0-11.0) 10^3/uL RBC 4.68 (4.20-5.40) 10^6/uL Hgb 15.5 (12.0-16.0) g/dL Hct 43.6 (36.0-48.0) % MCV 93.2 (81.0-99.0) fL MCH 33.1 (26.7-34.0) pg MCHC 35.6 H (29.9-35.2) g/dL RDW 13.7 (11.0-15.0) % Plt Count 305 (150-450) 10^3/uL MPV 9.5 (9.5-13.5) fL Neut % (Auto) 82.4 H (43.0-75.0) % Lymph % (Auto) 13.3 L (20.5-60.0) % Moffat % (Auto) 3.8 (1.7-12.0) % Eos % (Auto) 0.1 L (0.9-7.0) % Baso % (Auto) 0.2 (0.2-2.0) % Neut # (Auto) 7.2 H (1.4-6.5) 10^3/uL Lymph # (Auto) 1.2 (1.2-3.8) 10^3/uL Moffat # (Auto) 0.3 (0.3-0.8) 10^3/uL Eos # (Auto) 0.0 (0.0-0.7) 10^3/uL Baso # (Auto) 0.0 (0.0-0.1) 10^3/uL Abs Immat Gran (auto) 0.02 (0.00-0.03) 10^3/uL Imm/Tot Granulo (auto) 0.2 (0.0-0.5) % Sodium 139 (136-145) mmol/L Potassium 3.9 (3.5-5.1) mmol/L Chloride 99 (98-107) mmol/L Carbon Dioxide 28.8 (21.0-32.0) mmol/L Anion Gap 15.1 BUN 13.0 (7.0-18.0) mg/dL Creatinine 0.77 (0.55-1.02) mg/dL Est GFR ( Amer) >60 (>=60 mL/min/1.73m^2) Est GFR (Non-Af Amer) >60 (>=60 mL/min/1.73m^2) BUN/Creatinine Ratio 16.9 Glucose 169 H (74-106) mg/dL Lactate 1.2 (0.4-2.0) mmol/L Calcium 8.9 (8.5-10.1) mg/dL Total Bilirubin 0.6 (0.2-1.0) mg/dL AST 18 (15-37) U/L ALT 24 (14-59) U/L Alkaline Phosphatase 83 (46-116) U/L Troponin I High Sens 7.2 (4.0-51.3) pg/mL Total Protein 6.9 (6.4-8.2) g/dL Albumin 3.9 (3.4-5.0) g/dL Globulin 3.0 g/dL Albumin/Globulin Ratio 1.3 Lipase 19.0 (16.0-77.0) U/L Acetone, Qual Negative (NEGATIVE) POC Glucose 168 H (74-106) mg/dL Discharge Plan Discharge Chief Complaint: Nausea/Vomiting/Diarrhea Clinical Impression: Gastroenteritis Patient Disposition: Home, Self-Care Time of Disposition Decision: 20:32 Condition: Good Prescriptions / Home Meds: New ondansetron HCl 4 mg tablet 4 mg PO DAILY PRN (Reason: nausea and vomiting) 3 Days Qty: 10 0RF No Action doxycycline hyclate 100 mg capsule 100 mg PO BID 7 Days Qty: 14 0RF methylprednisolone [Medrol (Richard)] 4 mg tablets,dose pack 4 mg PO DAILY Qty: 21 0RF Rx Instructions: follow instructions on blister pack ardveedkvsehega-kefandwcs-AZ [Bromfed DM] 2-30-10 mg/5 mL syrup 5 ml PO Q6H PRN (Reason: sinus symptoms) Qty: 118 0RF Print Language: Ethiopian Instructions: Gastroenteritis (ED), Acute Nausea and Vomiting (ED) Referrals: SIRI JOHNSON DO [Primary Care Provider, [facility]] - 1 week Discharge Date/Time: 09/03/24 21:40
[2024-09-03] MEDS: METOCLOPRAMIDE HCL 10 MG/2 ML VIAL IVP (19:33)
[2024-09-03] MEDS: HYDRALAZINE HCL 20 MG/ML VIAL 5 MG IVP (19:33)
--- NOTE | 2024-09-03 19:40 | PC.NURSE ---
pt medicated fro nausea
== END 2024-09-03 21:40 | disposition home or self-care (01) ==
PROVIDERS: Physician Assistant; Emergency Provider Emergency Medicine; PCP Family Medicine
DX: K52.9 Noninfective gastroenteritis and colitis, unspecified (principal); R11.2 Nausea with vomiting, unspecified; E10.9 Type 1 diabetes mellitus without complications; Z96.41 Presence of insulin pump (external) (internal)
CPT/HCPCS: 36415; 74177; 80053; 81001; 82009; 83605; 83690; 84484; 85025; 96361; 96374; 96375; 99285; J0360; J2405; J2765; Q9967

== ENCOUNTER 2025-02-21 13:03 | Inpatient (IN) | payer MEDICARE, MEDICAID, SELFPAY ==
--- OUTSIDE RECORDS SUMMARY | 2021-06-27 05:10 | XMS_ITS | Continuity of Care Document ---
Author [facility] Hello Agent [facility] Address [address] [place] [address] Phone Care Team Providers Care Finisher Special Stocks Name Role Phone Leatha Chisholm MD, Jonathon Unavailable Unavailab le Allergies, Adverse Reactions, Alerts Substance Reaction Status Criticality No Known Allergies Active No Inform ation Medications Medication Instructions Dosage Effective Dates (start - stop) Status Comments Xarelto 15 mg tablet take 1 tablet by or al route 2 times every day with the evening meal 15 MG - Active fenofibrate 120 mg tablet take 1 tablet by oral route every day 120 MG - Active bupropion HCl XL 150 mg 24 hr tablet, extended release take 1 tablet by oral route every day 150 MG - Active Novolog Flexpen U-100 Insulin aspart 100 unit/mL (3 mL) subcutaneous inject by subcutaneous route per prescriber's instructions. Insulin dosing requires individualization. 0.00 - Active ondansetron 4 mg disintegrating tablet take 2 tablet by oral route every [address] on top of the tongue where they will dissolve, then swallow 8 MG - Active metoprolol succinate ER 25 mg tablet,extended release 24 hr take 1 tablet by oral route every day 25 MG - Active amlodipine 5 mg tablet take 1 tablet by oral route every day 5 MG - Active oxycodone 10 mg tablet take 1 tablet by oral route every 4 - 6 hours 10 MG - Active Procedures Procedure Date OFFICE/OUTPATIENT VISIT, [facility] Advance Directives Directive Yes / No Effective Date File Name No Information Encounters Encounter Description Practice Location Reason(s) For Visit Diagnoses Date Provider Providers Copied on Encounter OFFICE/OUTPAT IENT VISIT, EST Hello Agent [facility], [address] [facility] [place], [place], [id number], tel:[phone] [facility] Post-Op (chief complaint)C omment (chief complaint) 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 [address] [place], [address], [place]. tel:[phone] Referring Provider[place], [address] [place], [place], [facility]. tel:[phone] Family History Family Member Type Diagnosis Age At Onset No Information Payers Payer name Insurance type Covered libertarian ID Lon caraballo(s) Faisal [id number] Social History Type Description Quantity Date Captured Comments Alcohol Use Details Unknown Caffeine Use Details Unknown Tobacco Use Status Ex-cigarette smoker 022 Smoking Status Former smoker Non-Smoking Tobacco Use Details : No Details Available : No Details Available [id number] SexFemale Vital Signs Date / Time: Height Weight BMI Pulse Rate Blood Pressure Temperature Respiratory Rate Body Surface Area Head Circumference Head Circ. Percentile Wt./Fabián. Percentile BMI percentile Pulse Ox Inhaled Ox 10:22 AM 62 /min 137/94 mm[Hg] 97.00 F 16 /min 100 % 21 % Chief Complaint And Reason For Visit From encounter dated '06/27/2021 10:10'. Post-Op (chief complaint). Description: The status of the patient has worsened. The patient reportspain. The pain level is 8/10 and occurring persistently. The patient is using medication Q 4 and having fair response. The patient reports no complications with the wound. The patient can ambulate with assistance. There are no indwelling devices. Associated symptoms include nausea and swelling. Pert inent negatives include chills and fever. Additional information: had surgery in [place] beginning of May, stent occluded, tPA administered and started on Xarelto. Comment (chief complaint). Description: This is a 55-year-old female who was recently seen and evaluated at [facility]. She underwent stenting of her left SFA and had postoperative thrombosisrequiring thrombolytics therapy. Even after that episode she continued to have significant pain in her left leg and came to [facility]. They obtained a CT scan at that time I am which showed the stents to be widely patent and she had Doppler signal. Since being sent home from theER she continues to have significant pain and she states she is unable to sleep except for a few hours after taking narcotic pain medication. 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 I suspect that she has again thrombosed despite being on 815 mg b.i.d. Dose of Xarelto. I think she will need urgentrevascularization most likely a femoral popliteal bypass. I am because the she has critical ischemia explain to her that about a 3rd of patients who have gangrene on the foot despite all interventions will end up with an amputation. I will try to have her admitted to the hospital today him to promptly get her evaluated and revascularized. Reason For Referral Reason For Referral No Information History Of Present Illness Encounter Date Complaint History Of Prese nt Illness Comment This is a 55-yea r-old female who was recently seen and evaluated at [facility]. She underwent stenting of her left SFA and had postoperative thrombosis requiring thrombolytics therapy. Even after that episode she continued to have significant pain in her left leg and came to [facility]. They obtained a CT scan at that time I am which showed the stents to be widely patent and she had Doppler signal. Since being sent home from the ER she continues to have significant pain and she states she is unable to sleep except for a few hours after taking narcotic pain medication. She has dry gangrene on the left great toe and states that this is exquisitely tender so much so that she cannot work and she can barely walk.Here in the office she does not have any Doppler signal in the dorsalis pedis or posterior tibial. I suspect that she has again thrombosed despite being on 815 mg b.i.d. Dose of Xarelto. I think she will need urgent revascularization most likely a femoral popliteal bypass. I am because the she has critical ischemia explain to her that about a 3rd of patients who have gangrene on the foot despite all interventions will end up with an amputation. I will try to have her admitted to the hospital today him to promptly get her evaluated and revascularized. Post-Op The status of th e patient has worsened. The patient reports pain. The pain level is 8/10 and occurring persistently. The patient is using medication Q 4 and having fair response. The patient reports no complications with the wound. The patient can ambulate with assistance. There are no indwelling devices. Associated symptoms include nausea and swelling. Pertinent negatives include chills and fever. Additional information: had surgery in [place] beginning of May, stent occluded, tPA administered and started on Xarelto. Functional Status Date Functional Assessmen t Pain Score 10/10 Instructions Date Instruction Additional Infor mation No Information Assessments Type Assessment Date assessment Atherosclerosis of n ative artery of left lower extremity with gangrene impression I am recommending th at she get to admitted to the hospital for further evaluation and plan for a femoral popliteal bypass prior to her discharge. Mental Status Date Cognitive Assessment Orientation - [place] ed to time, place, person, situation. Patient Care Teams Name Effective Dates (start - stop) Status Members No Information
[2025-02-21] VITALS (42 sets, daily range): BP systolic 96–204; BP diastolic 57–108; PULSE 62–81; TEMP 36.3–36.8; O2SAT 93–100; BMI 21.1; BMI 21.7
--- NOTE | 2025-02-21 13:16 | CT_ITS ---
The [address] [address] Patient Name: KHRIS LADD MRN: [facility]:[id number] date: 1965 Sex: F Assigned Patient Location: ER Current Patient Location: ER Accession/Order Number: [id number] Exam Date: 02/21/2025 13:18 Report Date: 02/21/2025 13:36 At the request of: MANOHAR FOUNTAIN MD Procedure: CT stroke head/brain wo con CT BRAIN /STROKE WITHOUT CONTRAST: CLINICAL HISTORY: left sided numbness COMPARISON: None TECHNIQUE: Contiguous axial unenhanced images were obtained through the brain. This CT exam was performed using one or more following dose reduction techniques: Automated exposure control, adjustment of the mA and/or kV according to patient size, or use of iterative reconstruction technique. FINDINGS: There is no evidence of midline shift, intra or extra-axial fluid collection, hemorrhage or CT evidence of of acute large vascular distribution stroke. Suspected minor chronic small vessel changes. Visualized intraorbital contents appear unremarkable. Visualized paranasal sinuses are clear. Incidental anterior frontal sinus osteoma.. The surrounding soft tissues are normal. CT/CT stroke head/brain wo con IMPRESSION: NO ACUTE INTRACRANIAL ABNORMALITY. MINOR CHRONIC SMALL CHANGE. DISCUSSED WITH АЛЕКСАНДР 1335 HOURS ON 02/21/2025 Impression dictated by: Ian Hernandez M.D. 02/21/2025 1:36 PM Dictation Location: [place] [address] Electronically authenticated by: [id number] Y Date: 02/21/2025 13:36
--- NOTE | 2025-02-21 13:19 | XR_ITS ---
The [address] [address] Patient Name: KHRIS LADD MRN: [facility]:[id number] date: 1965 Sex: F Assigned Patient Location: ER Current Patient Location: ED.MAIN Accession/Order Number: [id number] Exam Date: 02/21/2025 14:45 Report Date: 02/21/2025 15:34 At the request of: MANOHAR FOUNTAIN MD Procedure: XR chest 1V PA CHEST: CLINICAL HISTORY: Possible stroke COMPARISON: None The heart is normal in size. The lungs are clear. The pulmonary vasculature is normal. Mediastinum and hilar regions are unremarkable. No pleural effusions are seen. Visualized bones are intact. XR/XR chest 1V IMPRESSION: NEGATIVE CHEST. Impression dictated by: Ian Hernandez M.D. 02/21/2025 3:34 PM Dictation Location: [place] [address] Electronically authenticated by: [id number] Y Date: 02/21/2025 15:34
--- NOTE | 2025-02-21 13:19 | ED_ITS ---
HPI HPI - General Adult General Chief complaint: Neuro Symptoms/Deficit Stated complaint: CVA SYMPTOMS Time Seen by Provider: 02/21/25 13:09 Source: patient Mode of arrival: Wheelchair History of Present Illness HPI narrative: 59-year-old female presented to the emergency department for chief complaint of numbness on the left side of her face and her left index finger and her left craven area going into her foot. It was like this when she awoke this morning. It was not like that when she went to bed last night and she woke just over 2 hours ago. She has never had a stroke. Symptom has been continuous. She has a history of hypertension and has been taking her medications. Related Data Home Medications ?Medication ?Instructions ?Recorded ?Confirmed alirocumab 75 mg/mL subcutaneous 75 mg subcut Q14D 09/1002/21/25 pen injector (Praluent Pen) amlodipine 5 mg-valsartan 160 mg 1 tab PO DAILY 02/21/25 tablet aspirin 81 mg chewable tablet 1 tab PO DAILY 02/21/25 02/21/25 cetirizine 10 mg tablet (24Hour 10 mg PO DAILY PRN all ergy symptoms 02/21/25 02/21/25 Allergy) cholecalciferol (vitamin D3) 50 50 mcg PO DAILY 02/21/25 mcg (2,000 unit) capsule clopidogrel 75 mg tablet 75 mg PO DAILY 02/21/2509/10 conjugated estrogens 0.3 mg tablet 0.3 mg PO DAILY 09/1002/21/25 (Premarin) famotidine 20 mg tablet 20 mg PO Q12H 02/21/2502/22 insulin lispro 100 unit/mL 1 sliding scale dose contin uous 02/21/25 02/22/25 subcutaneous solution (Humalog subcutaneous infusion A [facility] U-100 Insulin) levothyroxine 50 mcg tablet 50 mcg PO DAILY 02/21/25 1 04/25/24 lisdexamfetamine 60 mg capsule 60 mg PO DAILY 02/21/25 02/21/25 lorazepam 0.5 mg tablet 0.5 mg PO Q12H PRN anxiety 1 04/24/24 02/22/25 metoprolol tartrate 25 mg tablet 25 mg PO DAILY 12/06/ 25 12/06/25 pantoprazole 40 mg tablet,delayed 40 mg PO DAILY 02/2102/21/25 release blood-glucose sensor (Dexcom G7 02/22/25 02/22/25 Sensor device) blood-glucose,nut processing supervisor,cont 02/22/25 02/22/25 (Dexcom G7 Veneer Sample Maker) desvenlafaxine succinate 25 mg 25 mg PO DAILY 02/22/25 02/22/25 tablet,extended release 24 hr desvenlafaxine succinate 50 mg 50 mg PO DAILY 02/22/25 02/22/25 tablet,extended release 24 hr insulin pump cart,auto,BT,G6/7 02/22/25 02/22/25 (Omnipod 5 G6-G7 Pods (Gen 5) subcutaneous cartridge) ondansetron 4 mg disintegrating 4 mg PO Q12H PRN nause a and 02/22/25 02/22/25 tablet vomiting rivaroxaban 2.5 mg tablet (Xarelto) 2.5 mg PO BID 10/1002/23/25 Previous Rx's ?Medication ?Instructions ?Recorded ezetimibe 10 mg tablet 10 mg PO QHS 30 days #30 tab s 02/24/25 Allergies Allergy/AdvReac Type Severity Reaction Status Date / Time Latex, Natural Rubber Allergy Severe Rash Verified 09/03/24 17:44 meperidine (From Demerol) AdvReac Severe Vomiting Verified 09/03/24 17:44 Whupzna-DXK-UhA Reductase AdvReac Severe Weakness Verified 02/21/25 13:12 Inhibitor Opioid HPI Opioid Management Most Recent Opioid Data: Last Pain Scale 0 02/24/25, 08:24 Last Pain Intensity 0 02/23/25, 10:01 Last Pain Assessment 02/24/25, 13:34 Last ORT Total Score 3 02/21/25, 17:41 Last ORT Risk Category Low Risk 02/21/25, 17:41 Review of Systems ROS Narrative A ten point review of systems is negative except as noted above. [facility] Medical History (Updated 02/22/25 @ 10:32 by Aj Garcia MD) Tailbone injury ?S39.92XA - Unspecified injury of lower back, initial encounter (ICD-10) Prolapse of anterior vaginal wall ?N81.10 - Cystocele, unspecified (ICD-10) Hypertension ?I10 - Essential (primary) hypertension (ICD-10) Hypothyroidism ?E03.9 - Hypothyroidism, unspecified (ICD-10) Night terrors, adult ?F51.4 - Sleep terrors [night terrors] (ICD-10) Abnormal femoral arteriography ?R93.89 - Abnormal findings on diagnostic imaging of other specified body structures (ICD-10) Type 1 diabetes ?E10.9 - Type 1 diabetes mellitus without complications (ICD-10) Surgical History (Updated 02/21/25 @ 18:09 by Lona Delacruz) Insulin pump in place ?Z96.41 - Presence of insulin pump (external) (internal) (ICD-10) Femoral-popliteal bypass graft occlusion, left ?T82.898A - Other specified complication of vascular prosthetic devices, implants and grafts, initial encounter (ICD-10) Hx of appendectomy ?Z90.49 - Acquired absence of other specified parts of digestive tract (ICD- 10) H/O: hysterectomy ?Z90.710 - Acquired absence of both cervix and uterus (ICD-10) Family History (Updated 02/21/25 @ 18:11 by Lona Delacruz) Sister Family history of diabetes mellitus Family history of stroke Mother Family history of hypertension Family history of myocardial infarction Social History (Updated 02/21/25 @ 18:12 by Lona Delacrzu) Within the past year, how often did you have a drink containing alcohol: monthly or less Smoking status: Former smoker Non-prescribed substance use: denies use Previous occupational history: disabled-retired Highest level of school completed/degree received: Associate degree: occupational, technical, vocational program Are you now , , , , never or living with a partner: Little interest or pleasure in doing things: not at all Feeling down, depressed, or hopeless: not at all Exam Narrative Exam Narrative: Nurses note and vital signs reviewed General:The patient appears in no apparent distress. Patient is resting comfortably on cart. Skin:Warm, dry, no pallor noted.There is no rash noted. Head:Normocephalic, atraumatic Eye: Normal conjunctiva, no drainage, EOMI. PERRL Ears, Nose, Mouth, and Throat: oral mucosa is moist. Nares patent. Cardiovascular:Regular Rate and Rhythm Respiratory:Patient is in no distress, no accessory muscle use, lungs are clear to auscultation, no wheezing, rales or rhonchi Back:non-tender, no CVA tenderness bilaterally to percussion. GI:Normal bowel sounds, no tenderness to palpation, no masses appreciated.No rebound, guarding, or rigidity noted. Musculoskeletal: The patient has no evidence of calf tenderness, no pitting edema, symmetrical pulses noted bilaterally Neurological:A&O x4, normal speech; upper and lower extremity strength is 5 out of 5 and symmetric. Cranial nerves II through XII are intact except she reports numbness on the left cheek and left jaw area but not on the forehead. She also reports of a similar numb feeling on her left index finger and her left craven area going into the left foot. Psychiatric:Cooperative NIH score is 2, one point for ataxia in left arm and one point for sensation. Constitutional Vital Signs, click to edit/add: Last Vital Signs Temp 97.9 F 02/24/25 11:53 Pulse 60 02/24/25 11:53 Resp 16 02/24/25 11:53 BP 112/73 02/24/25 11:53 Pulse Ox 96 02/24/25 11:53 O2 Del Method Room Air 02/24/25 11:53 Course Course Hospital Course: Mrs. Mcgowan is a 59-year-old female who came to the emergency room yesterday for further evaluation of left facial, left hand and leg numbing sensation. Patient woke up yesterday morning having the symptoms. Patient reported that her left hand and arm as well as left leg are little bit clumsy. Patient is able to hold objects in the left arm but unable to perform fine motor movement such as preparing food or doing the dishes. Patient also reported that when she walks she feels that the left leg is not cooperating and would need to hold on furniture and bruno. Patient denies any headaches. She denies any slurred speech. She denies any confusion or disorientation orientation. No prior history of stroke no chest pain or palpitation (1) CVA (cerebral vascular accident): Plan Cerebrovascular accident is suspected involving the right hemisphere manifested by left facial, left hand, left leg numbing sensation and discoordination as described above. Other possible etiologies could not be excluded such as acute demyelination, cerebral edema, atypical migraine, atypical seizure, brain occupying lesion and others. Patient is already on aspirin and Plavix. She is supposed to be on Xarelto as well for peripheral vascular disease but admitted that she has not been taking it. CT head is negative for acute intracranial process. CTA of the head and neck are negative for any vascular dissection, thrombus or stenosis. ER physician I discussed her case with stroke team who recommended continuation of the aforementioned medications. I had accepted to admit patient to the medical floor. I resumed her dual antiplatelets as well as Xarelto 2.5 mg daily. I started patient on high dose intensity statin Requested MRI of the brain and echocardiogram. Telemetry monitoring rule out cardiac dysrhythmia or A-fib PT OT, speech evaluation and treatment. Diabetes. Patient has insulin pump. A1c 7.5. Hypertension. When patient came in, her blood pressure was on the high side. Today the blood pressure is on the low side. Resumed her home metoprolol. Holding amlodipine and ARB. My goal for now is to keep systolic blood pressure if possible above 150 and less than 170. Hyperlipidemia Low-fat diet and initiation of high intensity statin. Peripheral vascular disease status post left leg bypass surgery Continue statin, dual antiplatelet therapy and Xarelto 2.5 mg daily Hypothyroidism Continue Synthroid Previous tobacco addiction. Patient quit several years ago. Patient is at risk having lung cancer due to previous smoking history. I would recommend patient to have yearly low-dose radiation CAT scan of the chest to screen for lung cancer to be arranged by her PCP. 02/23/2025 in regards to the patient's documentation of C1 cervical fracture in her note, patient denies to me any trauma to her neck and does not have any step-off sign or tenderness in her cervical spine. Patient does not have any issues with her urination or defecation. Given her neurologic deficits, MRI brain without contrast ordered as well as echocardiogram. Will follow-up with the neurology team at [facility] today. She continues to be on aspirin 81 mg p.o. daily as well as Plavix 75 mg p.o. daily and atorvastatin 80 mg nightly. A1c came back at 7.7, blood pressure is nicely controlled. Continue metoprolol 25 mg p.o. daily. I discussed the plan with the patient in details. Answered all her questions. Also discussed plan with nursing team and physical therapist on the case. 02/24/2025 MRI brain without contrast showed minor small vessel ischemic change along with recent right thalamic lacunar infarct. Echo showed normal left ventricular size, wall thickness, systolic function without wall motion abnormalities. EF 69%. Normal left ventricular diastolic function. Normal right ventricular size and systolic function. Normal right-sided pressure, RVSP of 19 mmHg. No mitral regurg. No trans atrial shunt by color study. I discussed the case with neurology and cardiology. As per our whip operator, Dr. Coleman, given the patient's clinical findings there is no indication for cardioembolic workup. Also spoke to neurology which agreed on that as well as recommended the patient be discharged on aspirin, Plavix, and Xarelto for now for another 3 weeks and then she will have to follow-up with neurology under vascular surgery in regards on what to continue with her dual antiplatelet management for critical limb ischemia. Discussed all that with the patient at bedside. Also discussed with her the need for Zetia on discharge and she will call her PCP to make changes to her dyslipidemia injection. She understands agrees with the [facility] management. PT/OT saw the patient, recommended outpatient therapy however patient denied those needs. Vital Signs Vital signs: Vital Signs Pulse Rate 65 02/21/25 13:07 Respiratory Rate 20 02/21/25 13:07 Blood Pressure 200/105 H 02/21/25 13:07 Pulse Oximetry 100 02/21/25 13:07 Oxygen Delivery Method Room Air 02/21/25 13:07 Temperature 97.9 F 02/24/25 11:53 Pulse Rate 60 02/24/25 11:53 Respiratory Rate 16 02/24/25 11:53 Blood Pressure 112/73 02/24/25 11:53 Pulse Oximetry 96 02/24/25 11:53 Oxygen Delivery Method Room Air 02/24/25 11:53 Medical Decision Making [facility] Narrative Medical decision making narrative: CT and CTA head and neck are all negative. The patient still has her symptoms. Case is discussed with stroke team from [facility] who recommends admission and MRI and to continue the aspirin and Plavix. Findings are discussed thoroughly with the patient and the patient's daughter. Differential Diagnosis Differential Diagnosis: Stroke, paresthesia Lab Data Lab results reviewed: Yes I reviewed the patient's lab results Labs: Lab Results 02/21/25 02/21/25 02/22/25 Range/Units 13:20 13:21 05:45 WBC 7.9 6.6 (4.0-11.0) 10^3/uL RBC 4.38 4.08 L (4.20-5.40) 10^6/uL Hgb 14.4 13.3 (12.0-16.0) g/dL Hct 42.7 39.0 (36.0-48.0) % MCV 97.5 95.6 (81.0-99.0) fL MCH 32.9 32.6 (26.7-34.0) pg MCHC 33.7 34.1 (29.9-35.2) g/dL RDW 12.8 12.5 (11.0-15.0) % Plt Count 305 264 (150-450) 10^3/uL MPV 9.7 10.0 (9.5-13.5) fL Neut % (Auto) 62.5 56.3 (43.0-75.0) % Lymph % (Auto) 27.2 32.7 (20.5-60.0) % Clark % (Auto) 6.5 6.1 (1.7-12.0) % Eos % (Auto) 2.9 4.1 (0.9-7.0) % Baso % (Auto) 0.6 0.6 (0.2-2.0) % Neut # (Auto) 5.0 3.7 (1.4-6.5) 10^3/uL Lymph # (Auto) 2.2 2.2 (1.2-3.8) 10^3/uL Clark # (Auto) 0.5 0.4 (0.3-0.8) 10^3/uL Eos # (Auto) 0.2 0.3 (0.0-0.7) 10^3/uL Baso # (Auto) 0.1 0.0 (0.0-0.1) 10^3/uL Abs Immat Gran (auto) 0.02 0.01 (0.00-0.03) 10^3/uL Imm/Tot Granulo (auto) 0.3 0.2 (0.0-0.5) % PT 10.1 (9.0-11.6) sec INR 0.96 Sodium 138 140 (136-145) mmol/L Potassium 4.6 3.9 (3.5-5.1) mmol/L Chloride 101 102 (98-107) mmol/L Carbon Dioxide 30.8 27.8 (21.0-32.0) mmol/L Anion Gap 10.8 14.1 BUN 11.0 12.0 (7.0-18.0) mg/dL Creatinine 0.94 0.87 (0.55-1.02) mg/dL Est GFR ( Amer) >60 >60 (>=60 mL/min/1.73m^2) Est GFR (Non-Af Amer) >60 >60 (>=60 mL/min/1.73m^2) BUN/Creatinine Ratio 11.7 13.8 Glucose 158 H 219 H (74-106) mg/dL Estimat Average Glucose 174 mg/dL Hemoglobin A1c 7.7 H (4.5-6.2) % Calcium 9.0 8.5 (8.5-10.1) mg/dL Phosphorus 4.7 (2.6-4.7) mg/dL Total Bilirubin 0.2 (0.2-1.0) mg/dL AST 16 (15-37) U/L ALT 25 (14-59) U/L Alkaline Phosphatase 95 (46-116) U/L NT-Pro-B Natriuret Pep 241.0 (<=900.0) pg/mL Total Protein 5.7 L (6.4-8.2) g/dL Albumin 2.9 L (3.4-5.0) g/dL Globulin 2.8 g/dL Albumin/Globulin Ratio 1.0 Triglycerides 139 (<=150) mg/dL Cholesterol 209 H (<=200) mg/dL LDL Cholesterol, Calc 130.0 mg/dL VLDL Cholesterol 27.8 mg/dL HDL Cholesterol 52 (40-60) mg/dL Cholesterol/HDL Ratio 4.0 TSH 3.030 (0.358-3.740) uIU/mL POC Glucose 154 H (74-106) mg/dL 02/22/25 02/23/25 02/23/25 Range/Units 07:35 11:00 11:20 WBC 6.7 (4.0-11.0) 10^3/uL RBC 4.27 (4.20-5.40) 10^6/uL Hgb 14.2 (12.0-16.0) g/dL Hct 41.3 (36.0-48.0) % MCV 96.7 (81.0-99.0) fL MCH 33.3 (26.7-34.0) pg MCHC 34.4 (29.9-35.2) g/dL RDW 12.5 (11.0-15.0) % Plt Count 269 (150-450) 10^3/uL MPV 10.0 (9.5-13.5) fL Neut % (Auto) 69.6 (43.0-75.0) % Lymph % (Auto) 20.9 (20.5-60.0) % Clark % (Auto) 5.1 (1.7-12.0) % Eos % (Auto) 3.5 (0.9-7.0) % Baso % (Auto) 0.6 (0.2-2.0) % Neut # (Auto) 4.6 (1.4-6.5) 10^3/uL Lymph # (Auto) 1.4 (1.2-3.8) 10^3/uL Clark # (Auto) 0.3 (0.3-0.8) 10^3/uL Eos # (Auto) 0.2 (0.0-0.7) 10^3/uL Baso # (Auto) 0.0 (0.0-0.1) 10^3/uL Abs Immat Gran (auto) 0.02 (0.00-0.03) 10^3/uL Imm/Tot Granulo (auto) 0.3 (0.0-0.5) % PT (9.0-11.6) sec INR Sodium 137 (136-145) mmol/L Potassium 4.2 (3.5-5.1) mmol/L Chloride 100 (98-107) mmol/L Carbon Dioxide 31.3 (21.0-32.0) mmol/L Anion Gap 9.9 BUN 16.0 (7.0-18.0) mg/dL Creatinine 1.05 H (0.55-1.02) mg/dL Est GFR ( Amer) >60 (>=60 mL/min/1.73m^2) Est GFR (Non-Af Amer) 54 L (>=60 mL/min/1.73m^2) BUN/Creatinine Ratio 15.2 Glucose 277 H (74-106) mg/dL Estimat Average Glucose mg/dL Hemoglobin A1c (4.5-6.2) % Calcium 8.1 L (8.5-10.1) mg/dL Phosphorus (2.6-4.7) mg/dL Total Bilirubin 0.2 (0.2-1.0) mg/dL AST 18 (15-37) U/L ALT 26 (14-59) U/L Alkaline Phosphatase 93 (46-116) U/L NT-Pro-B Natriuret Pep (<=900.0) pg/mL Total Protein 6.1 L (6.4-8.2) g/dL Albumin 3.1 L (3.4-5.0) g/dL Globulin 3.0 g/dL Albumin/Globulin Ratio 1.0 Triglycerides (<=150) mg/dL Cholesterol (<=200) mg/dL LDL Cholesterol, Calc mg/dL VLDL Cholesterol mg/dL HDL Cholesterol (40-60) mg/dL Cholesterol/HDL Ratio TSH (0.358-3.740) uIU/mL POC Glucose 186 H 321 H (74-106) mg/dL Imaging Data CT scan - head: Radiologist's impression: ITS Impressions Brain CT 02/21/25 13:16 IMPRESSION: NO ACUTE INTRACRANIAL ABNORMALITY. MINOR CHRONIC SMALL CHANGE. DISCUSSED WITH АЛЕКСАНДР 1335 HOURS ON 02/21/2025 Impression dictated by: Ian Hernandez M.D. 02/21/2025 1:36 PM Dictation Location: [facility] [employer] Electronically authenticated by: [id number] Y Date: 02/21/2025 13:36 Chest X-Ray 02/21/25 13:19 IMPRESSION: NEGATIVE CHEST. Impression dictated by: Ian Hernandez M.D. 02/21/2025 3:34 PM Dictation Location: [facility] [employer] Electronically authenticated by: [id number] Y Date: 02/21/2025 15:34 Head CTA 02/21/25 13:33 IMPRESSION: Negative for large vessel occlusion or hemodynamically significant stenosis. Impression dictated by: Ian Hernandez M.D. 02/21/2025 3:39 PM Dictation Location: [facility] [employer] Electronically authenticated by: [id number] Y Date: 02/21/2025 15:39 Neck CTA 02/21/25 13:33 IMPRESSION: Negative for large vessel occlusion or hemodynamically significant stenosis. Impression dictated by: Ian Hernandez M.D. 02/21/2025 3:39 PM Dictation Location: [place] [address] Electronically authenticated by: [id number] Y Date: 02/21/2025 15:39 Brain MRI 02/23/25 08:49 IMPRESSION: MINOR SMALL VESSEL ISCHEMIC CHANGE. RECENT RIGHT THALAMIC LACUNAR INFARCT. Impression dictated by: Sarah Daniel M.D. 02/23/2025 11:24 AM Dictation Location: [place] [address] Electronically authenticated by: [id number] Y Date: 02/23/2025 11:24 ECG Data Attestation: I personally reviewed and interpreted this ECG as follows: (EKG on my interpretation shows sinus rhythm with rate of 66 and no acute change) Discharge Plan Discharge Chief Complaint: Neuro Symptoms/Deficit Clinical Impression: Stroke-like symptom Patient Disposition: Admitted as Observation Time of Disposition Decision: 16:34 Condition: Fair Discharge Date/Time: 02/21/25 17:30
--- NOTE | 2025-02-21 13:19 | ECG_ITS ---
The [facility] Test Date: 2025-02-21 Pat Name: KHRIS LADD Department: Room: - Gender: Female [employer] Tender: : 1965 Requested By: [id number] Order Number: [id number] Reading MD: CHALINO MIKE M.D. Measurements Intervals [place] Rate: 66 P: 75 WA: 178 QRS: 77 QRSD: 80 T: 79 QT: 428 QTc: 441 Interpretive Statements 1100 Sinus rhythm 9110 normal ECG No previous ECG available for comparison Electronically Signed On 02-21-2025 15:08:49 EST by CHALINO MIKE M.D.
[2025-02-21 13:33] LABS: Hematocrit 42.7 % (36.0-48.0); Hemoglobin 14.4 g/dL (12.0-16.0); Immature Granulocytes Abs Auto 0.02 10^3/uL (0.00-0.03); Immature Granulocytes Pct Auto 0.3 % (0.0-0.5); Lymphocytes Absolute Auto 2.2 10^3/uL (1.2-3.8); Mean Corpuscular HGB Conc 33.7 g/dL (29.9-35.2); Mean Corpuscular Hemoglobin 32.9 pg (26.7-34.0); Mean Corpuscular Volume 97.5 fL (81.0-99.0); Platelet Count 305 10^3/uL (150-450); Red Blood Count 4.38 10^6/uL (4.20-5.40); White Blood Count 7.9 10^3/uL (4.0-11.0)
--- NOTE | 2025-02-21 13:33 | CT_ITS ---
The [address] [address] Patient Name: KHRIS LADD MRN: [id number] date: 1965 Sex: F Assigned Patient Location: ER Current Patient Location: [facility] Accession/Order Number: [id number] Exam Date: 02/21/2025 14:45 Report Date: 02/21/2025 15:39 At the request of: MANOHAR FOUNTAIN MD Procedure: CT angio head CT angiogram head and neck with contrast CLINICAL HISTORY: Left-sided numbness COMPARISON: None TECHNIQUE: CT angiogram head and neck with coronal and sagittal and 3-D reconstructions. Evaluation degree of ICA narrowing was performed utilizing NASCET criteria. This CT exam was performed using one or more following dose reduction techniques: Automated exposure control, adjustment of the mA and/or kV according to patient size, or use of iterative reconstruction technique. FINDINGS: Three-vessel arch with mild to moderate plaque involving the great vessels. Common carotid arteries, carotid bifurcations and cervical ICAs are patent with mild to moderate plaque both bifurcations/proximal ICAs. Vertebral arteries are codominant and patent throughout their cervical course. Intracranial ICAs are patent. ACAs and MCAs are patent. Intradural vertebral arteries, basilar, basilar tip and basilar bifurcation unremarkable. Posterior is patent. No findings of dural venous sinus thrombosis CT/CT angio head IMPRESSION: Negative for large vessel occlusion or hemodynamically significant stenosis. Impression dictated by: Ian Hernandez M.D. 02/21/2025 3:39 PM Dictation Location: [place] [address] Electronically authenticated by: [id number] Y Date: 02/21/2025 15:39
--- NOTE | 2025-02-21 13:33 | CT_ITS ---
The [address] [address] Patient Name: KHRIS LADD MRN: [facility]:[id number] date: 1965 Sex: F Assigned Patient Location: ER Current Patient Location: [facility] Accession/Order Number: [id number] Exam Date: 02/21/2025 14:45 Report Date: 02/21/2025 15:39 At the request of: MANOHAR FOUNTAIN MD Procedure: CT angio head CT angiogram head and neck with contrast CLINICAL HISTORY: Left-sided numbness COMPARISON: None TECHNIQUE: CT angiogram head and neck with coronal and sagittal and 3-D reconstructions. Evaluation degree of ICA narrowing was performed utilizing NASCET criteria. This CT exam was performed using one or more following dose reduction techniques: Automated exposure control, adjustment of the mA and/or kV according to patient size, or use of iterative reconstruction technique. FINDINGS: Three-vessel arch with mild to moderate plaque involving the great vessels. Common carotid arteries, carotid bifurcations and cervical ICAs are patent with mild to moderate plaque both bifurcations/proximal ICAs. Vertebral arteries are codominant and patent throughout their cervical course. Intracranial ICAs are patent. ACAs and MCAs are patent. Intradural vertebral arteries, basilar, basilar tip and basilar bifurcation unremarkable. Posterior is patent. No findings of dural venous sinus thrombosis CT/CT angio neck IMPRESSION: Negative for large vessel occlusion or hemodynamically significant stenosis. Impression dictated by: Ian Hernandez M.D. 02/21/2025 3:39 PM Dictation Location: [place] [address] Electronically authenticated by: [id number] Y Date: 02/21/2025 15:39
[2025-02-21 13:46] LABS: INR 0.96; Prothrombin Time 10.1 sec (9.0-11.6)
[2025-02-21 13:55] LABS: Anion Gap 10.8; Blood Urea Nitrogen 11.0 mg/dL (7.0-18.0); Calcium 9.0 mg/dL (8.5-10.1); Carbon Dioxide 30.8 mmol/L (21.0-32.0); Chloride 101 mmol/L (98-107); Estimated GFR (African America >60 (>=60 mL/min/1.73m^2); Estimated GFR (Non-African Ame >60 (>=60 mL/min/1.73m^2); Glucose 158 mg/dL (74-106); NT Pro B Type Natriuretic Pept 241.0 pg/mL (<=900.0); Potassium 4.6 mmol/L (3.5-5.1); Sodium 138 mmol/L (136-145)
--- OUTSIDE RECORDS SUMMARY | 2025-02-21 13:57 | XMS_ITS | Encounter Summary ---
Author Organization [facility] Address [id number] [address] [place] [address] Care Team Providers Care Letter Of Credit Clerk Name Role Phone Chato Bradshaw DO Primary Care Provider [phone] Reason for Visit * ReasonCommentsMed Refill Encounter Details DateTypeDepartmentCare Team (Latest Contact Info)Kntzcmilisd05/02/2025Refill [facility] [address] [place] [address] Alonso Pizano MD [address] [place] [address] Critical limb ischemia with history of revascularization of same extremity ([facility]) Social History Tobacco UseTypesPacks/DayYears UsedDateSmoking Tobacco: FormerSmokeless Tobacco: NeverAlcohol UseStandard Drinks/WeekCommentsYes0 (1 standard drink = 0.6 oz pure alcohol)socialChildcareAnswerDate OjvpfeudCxufgkxoqYtmmjqr79/12/2019Employment AnswerDate AwsgnpxbXlmqypewofEblrjfy87/12/2019Hunger ScreeningAnswerDate RecordedWithin the past 12 months we worried whether our food would run out before we got money to buy more.Never True08/19/2024Within the past 12 months the food we bought just didn't last and we didn't have money to get more.Never True08/19/2024CommentsNoSex and Gender InformationValueDate RecordedSex Assigned at BirthNot on fileLegal SlcAgyptx32/06/2015 12:13 PM EDTGender IdentityNot on fileSexual OrientationNot on filedocumented as of this encounter Plan of Treatment DateTypeDepartmentCare Team (Latest Contact Info)Otdzeaeycji84/03/2026 1:15 PM ESTAppointment [facility] [address] [place] [address] Alonso Pizano MD [address] [place] [address] 04/21/2025 2:15 PM ESTAppointment [facility] [address] [place] [address] Alonso Pizano MD [address] [place] [address] 04/21/2025 3:10 PM ESTOffice Visit [facility] [address] [place] [address] Alonso Pizano MD [address] [place] [address] documented as of this encounter Goals GoalPatient Goal TypeAssociated ProblemsRecent ProgressPatient-Stated?Author Home Gisela Hale, CONCILIATION COURT JUDGE Note: Evaluation of progress towards goal: Discharge home with family support/ self care documented as of this encounter Visit Diagnoses Diagnosis Critical limb ischemia with history of revascularization of same extremity ([facility]) documented in this encounter Care Teams Team MemberRelationshipSpecialtyStart DateEnd Date Chato Bradshaw DO PCP - GeneralFamily Medicine07/07/21documented as of this encounter
--- OUTSIDE RECORDS SUMMARY | 2025-02-21 13:57 | XMS_ITS | Clinical Summary ---
Author Organization [facility] Address [address] [place] [address] Care Team Providers Care Director Digital Communications Name Role Phone Unavailable Primary Care Provider Unavailabl e Social History Tobacco UseTypesPacks/DayYears UsedDateSmoking Tobacco: Never AssessedUT Safety & EnvironmentAnswerDate RecordedFear of Current or Ex-PartnerNot on file 05/10/2023Emotionally AbusedNot on file05/10/2023hysically AbusedNot on file 05/10/2023Sexually AbusedNot on file05/10/2023hysically or Sexually AbusedNot on file05/10/2023CommentsUnknownSex and Gender InformationValueDate RecordedSex Assigned at BirthNot on fileLegal NndHwlgwr65/29/2022 10:20 PM EDT Gender IdentityNot on fileSexual OrientationNot on file Last Filed Vital Signs Vital SignReadingTime TakenCommentsBlood Ckzunomc399/9306/ 1:20 PM EDT Zphpo112009/26/2021 2:05 PM EDTTemperature--Respiratory Rate--Oxygen Saturation 100%09/26/2021 2:05 PM EDTInhaled Oxygen Concentration--Tlwedn19.1 kg (114 lb 12.8 oz)09/26/2021 1:56 PM GEFJuxbiz382.6 cm (5' 4 )09/26/2021 1:52 PM EDTBody Mass Index19.7107 1:52 PM EDT Plan of Treatment Health MaintenanceDue DateLast DoneCommentsCT Nxhbbvfoqeii13/28/1967Colonoscopy 1966Colorectal Cancer Lnwycbldg04/28/1967FIT-DNA1966FIT1966 FOBT1966 3212Njqbaxszkedoi68/28/1967Depression Fqfohwlag29/28/1979Pap Smear 12/15/1987Cervical Cancer Ioszmmvhf06/28/1997HPV/Yavyly7512/14/1996Hepatitis B Vaccines (3 of 3 - 19+ 3-dose series)/04/2004, 11/01/2004Mammogram 2006dult Qywcvag58Zoster Vaccines (1 of 2)2016 Influenza Vaccine (#1)2024HIB VaccinesAged OutNo longer eligible based on patient's age to complete this topicHPV VaccinesAged OutNo longer eligible based on patient's age to complete this topicIPV VaccinesAged OutNo longer eligible based on patient's age to complete this topicMeningococcal B VaccineAged OutNo longer eligible based on patient's age to complete this topicMeningococcal VaccineAged OutNo longer eligible based on patient's age to complete this topic Pneumococcal Vaccine: Pediatrics (0 to 5 Years) and At-Risk Patients (6 to 64 Years)Aged OutNo longer eligible based on patient's age to complete this topic Rotavirus VaccinesAged OutNo longer eligible based on patient's age to complete this topic Insurance
--- OUTSIDE RECORDS SUMMARY | 2025-02-21 13:57 | XMS_ITS | Clinical Summary ---
Author Organization [facility] Address [id number] [address] [place] [address] Care Team Providers Care Machine Operator Cane Cutter Name Role Phone Chato Bradshaw DO Primary Care Provider [phone] Allergies Active AllergyReactionsCriticalityNoted DateCommentsLatex, Natural RubberHives, Itching,ZpidXfuq17/22/2022MeperidineNausea And MhgpdljyZmlgqz88/12/2022 Medications MedicationSigDispense QuantityRefillsLast FilledStart DateEnd DateStatus AMLODIPINE BESYLATE, BULK, MISC Apply 10 mg to the mouth or throat in the morning.Active albuterol (ACCUNEB) 0.63 mg/3 mL nebulizer solution 3 mL (0.63 mg total).Active buPROPion XL (WELLBUTRIN XL) 150 mg 24 hr tablet Take 1 tablet (150 mg total) by mouth.Active cholecalciferol, vitamin D3, 2,000 units capsule Take 1 capsule (2,000 Units total) by mouth in the morning.Active fenofibrate (FENOGLIDE) 120 MG tablet Take by mouth daily.Active insulin aspart U-100 (NovoLOG) 100 unit/mL (3 mL) insulin pen Inject under the skin.Active metoprolol succinate XL (TOPROL XL) 25 mg 24 hr tablet Take by mouth daily.Active metoprolol tartrate (LOPRESSOR) 25 mg tablet Take 0.5 tablets (12.5 mg total) by mouth.Active ondansetron ODT (ZOFRAN ODT) 4 mg disintegrating tablet Dissolve on tongue every 12 (twelve) hours.Active nitroglycerin (NITRO-BID) 2 % ointment Place 0.5 inches on the skin.07/03/2021ctive cyclobenzaprine (FLEXERIL) 10 mg tablet Take 1 tablet (10 mg total) by mouth in the morning and 1 tablet (10 mg total) at noon and 1 tablet(10 mg total) before bedtime. 30 tablet 07/20/2021ctive Additional Information Patient not taking.Reported on 09/30/2024 acetaminophen (TYLENOL EXTRA STRENGTH) 500 mg tablet Take 2 tablets (1,000 mg total) by mouth every 6 (six) hours as needed for pain. 30 tablet 07/20/2021ctive Additional Information Patient not taking.Reported on 09/30/2024 naloxone (NARCAN) 4 mg/actuation spray,non-aerosol nasal spray Administer 1 spray (4 mg total) into alternating nostrils as needed for opioid reversal. 1 each 07/20/2021ctive Additional Information Patient not taking.Reported on 09/30/2024 ibuprofen (ADVIL,MOTRIN) 600 mg tablet Indications:Post-op painTake 1 tablet (600 mg total) by mouth every 8 (eight) hours as needed for pain. 30 tablet 07/29/2021ctive amoxicillin-pot clavulanate (AUGMENTIN) 875-125 mg per tablet Take 1 tablet by mouth every 12 (twelve) hours.06/06/2021ctive fenofibrate (TRICOR) 145 mg tablet Take 1 tablet (145 mg total) by mouth.Active fluconazole (DIFLUCAN) 150 mg tablet Take 1 tablet (150 mg total) by mouth once.07/18/2021ctive LORazepam (ATIVAN) 0.5 mg tablet Take 1 tablet (0.5 mg total) by mouth nightly.08/09/2021ctive losartan (COZAAR) 100 mg tablet Take 1 tablet (100 mg total) by mouth in the morning.06/24/2021ctive meloxicam (MOBIC) 15 mg tablet Take 1 tablet (15 mg total) by mouth in the morning.06/29/2021ctive naproxen (NAPROSYN) 500 mg tablet Take 500 mg by mouth in the morning and 500 mg before bedtime.06/08/2021ctive NIFEdipine XL (PROCARDIA XL) 30 mg 24 hr tablet Take 1 tablet (30 mg total) by mouth in the morning.07/29/2021ctive pravastatin (PRAVACHOL) 10 mg tablet Take 10 mg by mouth in the morning.06/24/2021ctive sulfamethoxazole-trimethoprim (BACTRIM DS) 800-160 mg per tablet Take 1 tablet by mouth in the morning and 1 tablet before bedtime.06/27/2021 Active varenicline (CHANTIX) 0.5 mg tablet Take 1 tablet (0.5 mg total) by mouth in the morning and 1 tablet (0.5 mg total) before bedtime.Active gabapentin (NEURONTIN) 100 mg capsule Indications:NeuralgiaTake 1 capsule (100 mg total) by mouth in the morning and 1 capsule (100 mg total) at noon and 1 capsule (100 mg total) before bedtime. 60 capsule ctive Additional Information Patient not taking.Reported on 09/30/2024 rosuvastatin (CRESTOR) 40 mg tablet Take 1 tablet (40 mg total) by mouth in the morning.11/12/2021ctive PRALUENT PEN 75 mg/mL pen injector 3Active amLODIPine-valsartan (EXFORGE) 5-160 mg per tablet Take 1 tablet by mouth in the morning./6Active DEXCOM G7 SENSOR device USE FOR CONTINUOUS BLOOD GLUCOSE MONITORING, REPLACE EVERY 10 DAYS09/16/2024 Active desvenlafaxine (PRISTIQ) 25 mg 24 hr tablet TAKE 1 TABLET BY MOUTH EVERY DAY IN ADDITION TO 50MG TABLETActive erythromycin (ILOTYCIN) ophthalmic ointment APPLY 1 INCH TO LEFT EYE THREE TIMES A DAY FOR 5 DAYS5Active PREMARIN 0.3 mg tablet Take 1 tablet (0.3 mg total) by mouth.Active famotidine (PEPCID) 20 mg tablet Take 1 tablet (20 mg total) by mouth.Active fluticasone furoate-vilanteroL (BREO ELLIPTA) 200-25 mcg/dose blister with device INHALE 1 PUFF BY MOUTH ONCE A DAY5Active HumaLOG U-100 Insulin 100 unit/mL injection DOSING PER INSULIN PUMP. MAX DOSING 37 UNITS PER DAY.Active levothyroxine (SYNTHROID, LEVOTHROID) 50 MCG tablet Take 1 tablet (50 mcg total) by mouth.Active lisdexamfetamine (VYVANSE) 60 mg capsule Take 1 capsule (60 mg total) by mouth.5Active methylPREDNISolone (MEDROL) 4 mg tablet Take by mouth.4Active moxifloxacin (VIGAMOX) 0.5 % ophthalmic solution 5Active ofloxacin (OCUFLOX) 0.3 % ophthalmic solution INSTILL 1 DROP INTO RIGHT EYE 4 TIMES A DAY BEGIN AFTER 1ST POST-OP EXAM 5Active ondansetron (ZOFRAN) 4 mg tablet TAKE 1 TABLET ORALLY DAILY NEEDED FOR NAUSEA AND VOMITING FOR 3 DAYS 5Active pantoprazole (PROTONIX) 40 mg EC tablet Take 1 tablet (40 mg total) by mouth.Active progesterone (PROMETRIUM) 200 mg capsule Take 1 capsule (200 mg total) by mouth.5Active valACYclovir (VALTREX) 1000 mg tablet Take 1 tablet (1,000 mg total) by mouth.5Active valsartan (DIOVAN) 80 mg tablet Take 1 tablet (80 mg total) by mouth.5Active rivaroxaban (XARELTO) 2.5 mg tablet Indications:Peripheral arterial diseaseTake 1 tablet (2.5 mg total) by mouth in the morning and 1 tablet (2.5 mg total) before bedtime. 60 tablet 505Active aspirin 81 mg chewable tablet CHEW AND SWALLOW 1 TABLET IN THE MORNING 90 tablet 5Active clopidogreL (PLAVIX) 75 mg tablet Indications:Critical limb ischemia with history of revascularization of same extremity ([facility])TAKE 1 TABLET (75 MG TOTAL) BY MOUTH IN THE MORNING 90 tablet 5Active aspirin 81 mg chewable tablet CHEW AND SWALLOW 1 TABLET IN THE MORNING 90 tablet /04/2024Discontinued clopidogreL (PLAVIX) 75 mg tablet Indications:Critical limb ischemia with history of revascularization of same extremity ([facility])TAKE 1 TABLET (75 MG TOTAL) BY MOUTH IN THE MORNING 90 tablet 106Discontinued Active Problems ProblemNoted DateDiagnosed DateDiabetes swpwjcji55/28/2310Gsfkvcibqjr41/28/2022 Urinary tfkziidjp83/28/2022Gangrenous toe07/09/2021eripheral artery disease 07/09/2021 Overview (07/11/2021): Added automatically from request for surgery [id number] Type 1 diabetes kkhovlwn01/11/5064Lrfulnri88/11/2022rimary hypertension 06/27/2021eripheral arterial dfyfhsr3706/19/2021Lung ukzugxf9008/29/2011 Encounters DateTypeDepartmentCare HenyNgnfucnwfsl79/02/2025Refill [facility] [address] [place] [address] Alonso Pziano MD Critical limb ischemia with history of revascularization of same extremity ([facility])from Last 3 Months Social History Tobacco UseTypesPacks/DayYears UsedDateSmoking Tobacco: FormerSmokeless Tobacco: NeverAlcohol UseStandard Drinks/WeekCommentsYes0 (1 standard drink = 0.6 oz pure alcohol)socialChildcareAnswerDate EzyjbqnaQuhzlutwiVzgunfp67/12/2019Employment AnswerDate WiaurnnvQdmedyoawtRetkmho10/12/2019Hunger ScreeningAnswerDate RecordedWithin the past 12 months we worried whether our food would run out before we got money to buy more.Never True08/19/2024Within the past 12 months the food we bought just didn't last and we didn't have money to get more.Never True08/19/2024CommentsNoSex and Gender InformationValueDate RecordedSex Assigned at BirthNot on fileLegal CuuPnizjb85/06/2015 12:13 PM EDTGender IdentityNot on fileSexual OrientationNot on file Last Filed Vital Signs Vital SignReadingTime TakenCommentsBlood Obwajdsa197/22210 11:28 AM EDT Zgaek2227 11:28 AM AMQYcwyedndpfo82.4 ??C (97.5 ??F)07/20/2021 12:40 PM EDTRespiratory Wagb764907/29/2021 2:21 PM EDTOxygen Avvkbpolgc66%09/30/2024 11:28 AM EDTInhaled Oxygen Concentration--Mxttlc19.2 kg (126 lb)09/30/2024 11:28 AM LWCZkquox970.6 cm (5' 4 )09/30/2024 11:28 AM EDTBody Mass Index21.63009/30/2024 11:28 AM EDT Plan of Treatment DateTypeDepartmentCare Team (Latest Contact Info)Wjgrqrwwbky63/03/2026 1:15 PM ESTAppointment [facility] [address] [place] [address] Alonso Pizano MD [address] [place] [address] 04/21/2025 2:15 PM ESTAppointment [facility] [address] [place] [address] Alonso Pizano MD [address] [place] [address] 04/21/2025 3:10 PM ESTOffice Visit [facility] [address] [place] [address] Alonso Pizano MD [address] [place] [address] Health MaintenanceDue DateLast DoneCommentsDiabetic Ophthalmology Exam1966 Statin Use: Cigeocfzgiixaw16/28/1967Statin Use: Zlhqeqdw41/28/1967Depression Vwkstgnzt67/28/1979Diabetic Foot Exam1984Zoster (Shingles) Vaccine (1 of 2)1985DTaP,Tdap and Td Vaccines (3 - Tdap), 12/31/1977 Influenza Oynpraj0411/17/2024dult BMI Olultnoue88Tobacco Aqczirxej90 Goals GoalPatient Goal TypeAssociated ProblemsRecent ProgressPatient-Stated?Author Home Gisela Hale, CALLIE Note: Evaluation of progress towards goal: Discharge home with family support/ self care Medical Devices ImplantedTypeAreaManufacturerDevice IdentifierShelf Expiration DateModel / Serial / LotPatch Cv 8x.8cm N-Pyrg Tpr End Photofix Decellularized Bvn Rpl [id number] - [id number] Implanted:Qty: 1 on 07/14/2021 [facility]raftLeft: JtawsMOMDOTOS20/18/[id number] / / [id number]:LEFT FEMORAL ARTERY Insurance Advance Directives TypeDate RecordedPatient RepresentativeExplanationLiving Will07/15/2021 6:42 AM living will/poa * Full Code (Latest Code Status on File) Date ActivatedDate InactivatedComments07/09/2021 10:08 PM07/20/2021 4:19 PM Care Teams Team MemberRelationshipSpecialtyStart DateEnd Date Chato Bradshaw DO [facility]07/07/21
--- OUTSIDE RECORDS SUMMARY | 2025-02-21 13:57 | XMS_ITS | Clinical Summary ---
Author Organization [facility] Address [address] [place] [address] Phone Care Team Providers Care Pull Up Hand Name Role Phone Chato Bradshaw DO Primary Care Provider [phone] Rj Ashby MD Unavailable [phone] Allergies Active AllergyReactionsCriticalityNoted OfucQsrutqelPycfrLpvbxyt39/04/2024 Dyowvqy-Fie-Ewc Reductase YlufbwcdzuDcvesya59/04/2024 Medications MedicationSigDispense QuantityRefillsLast FilledStart DateEnd DateStatus albuterol 90 mcg/actuation inhaler Inhale 2 puffs every 4 hours if needed for wheezing.Active aspirin 81 mg EC tablet Take 1 tablet (81 mg) by mouth once daily.Active ibuprofen 800 mg tablet Take 1 tablet (800 mg) by mouth if needed for moderate pain (4 - 6).05/20/2020 Active ondansetron ODT (Zofran-ODT) 4 mg disintegrating tablet Dissolve 1 tablet (4 mg) in the mouth if needed for nausea or vomiting. 05/27/2020ctive clopidogrel (Plavix) 75 mg tablet Take 1 tablet (75 mg) by mouth once daily.08/04/2022ctive dupilumab (DUPIXENT PEN SUBQ) Inject under the skin every 14 (fourteen) days.Active cetirizine (ZyrTEC) 10 mg tablet Take 1 tablet (10 mg) by mouth if needed.08/05/2022ctive lisdexamfetamine (Vyvanse) 50 mg capsule Take 1 capsule (50 mg) by mouth once daily in the morning.Active desvenlafaxine 50 mg 24 hr tablet Take 1 tablet (50 mg) by mouth once daily.09/10/2023ctive desvenlafaxine succinate (Pristiq) 25 mg 24 hour tablet Take 1 tablet (25 mg) by mouth once daily.11/02/2023ctive HumaLOG U-100 Insulin 100 unit/mL injection DOSING PER INSULIN PUMP. MAX DOSING 37 UNITS PER DAY.5Active ALPRAZolam (Xanax) 0.25 mg tablet Take 1 tablet (0.25 mg) by mouth as needed at bedtime for anxiety.Active amlodipine-valsartan (Exforge) 5-160 mg tablet Indications:Essential (primary) hypertensionTake 1 tablet by mouth once daily. 90 tablet //6Active metoprolol tartrate (Lopressor) 25 mg tablet Indications:Essential (primary) hypertensionTake 1 tablet (25 mg) by mouth once daily. 90 tablet 5Active alirocumab (Praluent Pen) 75 mg/mL pen injector Indications:Mixed hyperlipidemia,PVD (peripheral vascular disease),Type 2 diabetes mellitus with other circulatory complication, with long-term current use of insulin(Multi),Statin intoleranceInject 75 mg as directed every 14 (fourteen) days. 6 Pen //6Active Active Problems ProblemNoted DateDiagnosed DateBMI 21.0-21.9, adult06/28/2023Former smoker 06/28/2023Essential (primary) vkiuqckdysej45/04/2024Type 2 diabetes mellitus with circulatory disorder, with long-term current use of vieicqa4003/22/2023 Kxmfkhztlmpg29/04/1030Ortswzgbdhiwuq53/04/2024Intermittent claudication 03/22/2023VD (peripheral vascular disease)03/22/2023Statin intolerance 03/22/2023 Immunizations ImmunizationAdministration DatesNext EboYSO47Hepatitis B vaccine, adult *Check Product/Dose*01/18/2005,11/01/2004MMR vaccine, subcutaneous (MMR II) 11/08/2004,09/17/1972 Family History Medical HistoryRelationNameCommentsHypertensionFatherThyroid diseaseFather DiabetesMotherHeart diseaseMotherHypertensionMotherThyroid diseaseMotherDiabetes SisterThyroid diseaseSisterRelationNameStatusCommentsFatherMotherSister Social History Tobacco UseTypesPacks/DayYears UsedDateSmoking Tobacco: FormerCigarettesQuit: mokeless Tobacco: Never Tobacco Cessation:Counseling Given: Not Answered Alcohol UseStandard Drinks/WeekCommentsYes0 (1 standard drink = 0.6 oz pure alcohol)sociallyCommentsUnknownSex and Gender InformationValueDate RecordedSex Assigned at BirthNot on fileLegal HtaEtixmo77/25/2022 9:30 PM EST Gender IdentityNot on fileSexual OrientationNot on file Last Filed Vital Signs Vital SignReadingTime TakenCommentsBlood Xmtlcwvb146/8809/05/2024 1:44 PM EDT Ovrtp402109/05/2024 1:44 PM PRMSnyurkidthe01.9 ??C (96.6 ??F)07/27/2020 4:38 PM EDTRespiratory Rate--Oxygen Saturation--Inhaled Oxygen Concentration--Jklhkv61.1 kg (128 lb)09/05/2024 1:44 PM GKPEdpfef236.6 cm (5' 4 )09/05/2024 1:44 PM EDT Body Mass Index21.9709/05/2024 1:44 PM EDT Plan of Treatment DateTypeDepartmentCare Team (Latest Contact Info)Qtlrhuuybzd86/30/2026 2[address] [facility] [address] [address] Rj Ashby MD 703 [facility] 2, [address] [address] Health MaintenanceDue DateLast DoneCommentsCT Tndfoyimxbnb31/28/1967Colonoscopy 1966Colorectal Cancer Rysuganmn32/28/1967Diabetes: Celiac Disease Lmynwacgx32/28/1967Diabetes: Urine Protein Zzkgcnwwo31/28/1967FIT-DNA (Cologuard)1966FIT1966HIV Bubdhwiau02/28/1967Lipid Panel1966 Medicare Annual Wellness Visit (AWV)1966 3919Jebmlyttrdvrw72/28/1967Hepatitis C Rkwoogimm69/28/1985Pneumococcal Vaccine (1 of 2 - PCV)1985Cervical Cancer Afhootuqg08/28/1988HPV/Geksgy2312/15/1987Pap Smear12/15/1987DTaP/Tdap/Td Vaccines (2 - Tdap)Hepatitis B Vaccines (3 of 3 - 19+ 3-dose series) , 11/01/2004Zoster Vaccines (1 of 2)2016Diabetes: Hemoglobin A1C08/05//, 06/28/2021Influenza Vaccine (#1)2024 COVID-19 Vaccine (1 - 2024- season)11/17/20249581Nltpidaoz38/17/202510/, 01/03/2024TSH Level/, 4Diabetes: Retinopathy Mjdmgxgpd60/Vitamin B-12104/22/410119/06/2022MMR Vaccines Tfnmidvnm86/23/2005, 09/17/1972HIB VaccinesAged OutNo longer eligible based on patient's age to complete this topicHPV VaccinesAged OutNo longer eligible based on patient's age to complete this topicHepatitis A VaccinesAged OutNo longer eligible based on patient's age to complete this topicIPV VaccinesAged OutNo longer eligible based on patient's age to complete this topicMeningococcal VaccineAged OutNo longer eligible based on patient's age to complete this topic Rotavirus VaccinesAged OutNo longer eligible based on patient's age to complete this topic Insurance MemberSubscriberPlan / Payer (Effective 2023-Present)Name:Camryn Mcgowan Relation to Subscriber:SelfName:Camryn Mcgowan Payer ID:Not on file Group ID:Not on file Type:Not on file Address: [address] [place] [id number] Care Teams Team MemberRelationshipSpecialtyStart DateEnd Date Chato Bradshaw DO PCP - General03/19/19 Rj Ashby MD [address] [place] [address] 3, [facility] [address] [place] [address] Consulting PhysicianCardiology04/13/23
--- OUTSIDE RECORDS SUMMARY | 2025-02-21 13:58 | XMS_ITS | Encounter Summary ---
Author Organization [facility] Address [address], [address] [place] [address] Care Team Providers Care Park Activities Coordinator Name Role Phone Chato Bradshaw DO Primary Care Provider [phone] Reason for Visit * ReasonCommentsMedication Refill Encounter Details DateTypeDepartmentCare Team (Latest Contact Info)Fhyqewepfqw79/22/2025[facility] [address] [place] [address] Lona Rosario, LUBRICATION SUPERVISOR - CORK TILE FLOOR LAYER [address] [place] [address] Medication Refill Social History Tobacco UseTypesPacks/DayYears UsedDateSmoking Tobacco: [id number] - mokeless Tobacco: NeverAlcohol UseStandard Drinks/WeekCommentsYes3 (1 standard drink = 0.6 oz pure alcohol) Couple times a week [facility] UtilitiesAnswer Date RecordedIn the past 12 months has the electric, gas, oil, or water company threatened to shut off services in your home?No05/29/2024UDIT-CAnswerDate RecordedQ1: How often do you have a drink containing alcohol?2-4 times a month 07/18/2024Q2: How many drinks containing alcohol do you have on a typical day when you are drinking?1 or Q3: How often do you have six or more drinks on one occasion?Never07/18/2024Overall Financial Resource Strain (CARDIA) AnswerDate RecordedHow hard is it for you to pay for the very basics like food, housing, medical care, and heating?Not hard at all12/27/2022HQ-2AnswerDate RecordedPHQ-9 Total Vwewt603Exercise Vital SignAnswerDate RecordedOn average, how many days per week do you engage in moderate to strenuous exercise (like a brisk walk)?0 days07/18/2024On average, how many minutes do you engage in exercise at this level?0 min07/18/2024Hunger Vital SignAnswerDate Recorded Within the past 12 months, you worried that your food would run out before you got the money to buymore.Never true05/29/2024Within the past 12 months, the food you bought just didn't last and you didn't have money to get more.Never true 05/29/2024PRAPARE - TransportationAnswerDate RecordedIn the past 12 months, has lack of transportation kept you from medical appointments or from getting medications?No05/29/2024In the past 12 months, has lack of transportation kept you from meetings, work, or from getting things needed for daily living?No 05/29/2024Housing Stability Vital SignAnswerDate RecordedUnable to Pay for Housing in the Last YearNot on file12/27/2022Number of Places Lived in the Last YearNot on file12/27/2022In the last 12 months, was there a time when you did not have a steady place to sleep or slept in [facility] (including now)?No 12/27/2022Housing Stability Vital SignAnswerDate RecordedIn the last 12 months, was there a time when you were not able to pay the mortgage or rent on time?No 05/29/2024In the past 12 months, how many times have you moved where you were living?t any time in the past 12 months, were you homeless or living in a retirement (including now)?No05/29/2024Food InsecurityAnswerDate Recorded Within the past 12 months, you worried that your food would run out before you got the money to buymore.Within the past 12 months, the food you bought just didn't last and you didn't have money to get more. CommentsNoSex and Gender InformationValueDate RecordedSex Assigned at BirthNot on fileLegal EowSnjoee63/10/2013 2:36 PM ESTGender IdentityNot on file Sexual OrientationNot on filedocumented as of this encounter Plan of Treatment DateTypeDepartmentCare Team (Latest Contact Info)Okkouyhqdpr78/17/2026 2:00 PM EDTOffice [facility] [address] [place] [address] Chato Bradshaw DO [address] [place] [address] 6 mo f/udocumented as of this encounter Visit Diagnoses Diagnosis Esophageal dysphagia Dysphagia, pharyngoesophageal phase Gastroesophageal reflux disease, unspecified whether esophagitis present documented in this encounter Additional Health Concerns AssessmentNoted TimeA fall risk assessment has been completed for the patient 07/18/2024 1:11 PM EDTdocumented as of this encounter Care Teams Team MemberRelationshipSpecialtyStart DateEnd Date Chato Bradshaw DO PCP - GeneralFamily Medicine06/21/21documented as of this encounter
--- OUTSIDE RECORDS SUMMARY | 2025-02-21 13:58 | XMS_ITS | Clinical Summary ---
Author Organization [facility] Address [address] [place] [address] Care Team Providers Care Brine Purifier Name Role Phone Chato Bradshaw MD Primary Care Provider [phone] Allergies Active AllergyReactionsCriticalityNoted DateCommentsLatex, Natural Rubber Rash-Mild05/08/2011 Medications * This document contains information received from the source organization and may not represent a complete record from that organization. MedicationSigDispense QuantityRefillsLast FilledStart DateEnd DateStatus Novalog Insulin Pump 05/08/2011ctive conjugated estrogens (PREMARIN) 0.625 mg/g vaginal cream Apply within the eknjto0005/08/2011ctive conjugated estrogens (PREMARIN) 0.625 mg tablet Take 1 Tablet by mouth Daily tablet 05/08/2011ctive docusate sodium (COLACE) 100 mg capsule Take 100 mg by mouth two times daily. to prevent constipation while on narcotic pain medication. Quantity: 60 Refill: 0Active oxyCODONE (ROXICODONE) 5 mg IR tablet Indications:painTake 5-10 mg by mouth every four to six hours as needed. Quantity: 50 Refill: 0 Indications: PAIN11/10/2011ctive oxybutynin (DITROPAN XL) 5 mg 24 hr tablet Indications:Incontinence of urineTake 1 tablet by mouth once daily. 90 tablet ctive catheter 12 Fr Misc Indications:Urinary retentionSelf-cath every 6 hours. Dx: Urinary retention. 50 each ctive diazepam [address] one suppository in vagina at bedtime with gradual increase not to exceed 1 per vagina four times per day 60 suppository ctive Active Problems ProblemNoted DateDiagnosed DateDiabetes mellitusDyspareuniaUrinary retention Family History Medical HistoryRelationNameCommentsThyroid diseaseBrotherDiabetesMaternal Aunt DiabetesMaternal GrandfatherHypertensionMotherHeart attackSister 1DiabetesSister 2Thyroid diseaseSister 2Thyroid diseaseSister 3Alcohol abuseNeg HxAnemiaNeg Hx Anesth problemsNeg HxArthritisNeg HxAsthmaNeg HxBladder cancerNeg HxBleeding disorderNeg HxBreast cancerNeg HxCancerNeg HxCirrhosisNeg HxClotting disorderNeg HxEmphysemaNeg HxHeart diseaseNeg HxHigh cholesterolNeg HxKidney cancerNeg Hx Kidney diseaseNeg HxKidney stonesNeg HxLupusNeg HxMigrainesNeg HxOsteoporosisNeg HxOvarian cancerNeg HxProstate cancerNeg HxStrokeNeg HxTuberculosisNeg Hx RelationNameStatusCommentsBrotherAliveFatherAliveMaternal AuntDeceasedMaternal GrandfatherDeceasedMotherAliveSister 1Deceased (Age 48)heart attackSister 2Alive Sister 3Alive Social History Tobacco UseTypesPacks/DayYears UsedDateSmoking Tobacco: VybwoySezegxwena820 05/16/1991 - 05/16/2011Smokeless Tobacco: NeverAlcohol UseStandard Drinks/Week CommentsYes1.7 (1 standard drink = 0.6 oz pure alcohol)occassional CommentsNoSex and Gender InformationValueDate RecordedSex Assigned at BirthNot on fileLegal BvuIxvtbd55/17/2013 11:55 PM ESTGender IdentityNot on fileSexual OrientationNot on file Last Filed Vital Signs Vital SignReadingTime TakenCommentsBlood Qyebjtko915/8101/29/2012 3:21 PM EST Pdrlw240201/29/2012 3:21 PM TRKDmhdvdicdow59.7 ??C (96.3 ??F)01/29/2012 3:21 PM ESTRespiratory Rate--Oxygen Saturation--Inhaled Oxygen Concentration--Lqplaw89.5 kg (122 lb 4.8 oz)01/29/2012 3:21 PM JHRQiesrd280.6 cm (5' 4 )01/29/2012 3:21 PM ESTBody Mass Index20.9901/29/2012 3:21 PM EST Plan of Treatment Health MaintenanceDue DateLast DoneCommentsCologuard (average risk only) 1966 7898Ksqhydcaibd99/28/1967Colorectal Cancer Bwmttlphx46/28/1967FIT (average risk only)1966Hepatitis C Sqhpisfwi29/28/1967Dilated Retinal Exam 1968Estimated Glomerular Filtration Rate (eGFR)1976FOOT EXAM 1976HEMOGLOBIN A1C1976Urine Albumin to Creatinine Ratio1976 Alternating Mammogram/MRI1978DTaP,Tdap,and Td Vaccines (1 - Tdap) 1985Hepatitis B Vaccine ages 19 years and older (1 of 3 - 19+ 3-dose series)1985Breast Cancer Jbeukmxmx01/28/1328Zydpftcum23/28/1987Cervical Cancer Screening: Qlhnybyh47/28/1988Pneumococcal Vaccines 50years + (1 of 1 - PCV)2016Zoster Recombinant Vaccines (1 of 2)2016COVID-19 Vaccine (1 - 2024- season)2024Influenza Vaccine (#1)2024Respiratory Syncytial Virus (RSV) or ages 60 years and older (1 - 1-dose 75+ series) 2Respiratory Syncytial Virus (RSV) ages 0 thru 19 monthsAged OutNo longer eligible based on patient's age to complete this topic Insurance Care Teams Team MemberRelationshipSpecialtyStart DateEnd Date Chato Bradshaw MD [facility] - General04/14/11
--- OUTSIDE RECORDS SUMMARY | 2025-02-21 13:58 | XMS_ITS | Encounter Summary ---
Author [facility] Address [address], [address] [place] [address] Care Team Providers Care Cadmium Liquor Maker Name Role Phone Chato Bradshaw DO Primary Care Provider [phone] Reason for Visit * ReasonCommentsMedication Refill Encounter Details DateTypeDepartmentCare Team (Latest Contact Info)Tkmduqcljlp37/23/2025Ref[facility] [address] [place] [address] Chato Bradshaw DO [address] [place] [address] Medication Refill Social History Tobacco UseTypesPacks/DayYears UsedDateSmoking Tobacco: [id number] - mokeless Tobacco: NeverAlcohol UseStandard Drinks/WeekCommentsYes3 (1 standard drink = 0.6 oz pure alcohol) Couple times a week [facility] UtilitiesAnswer Date RecordedIn the past 12 months has the [employer], gas, oil, or water [employer] threatened to shut off services in your [...] and heating?Not hard at all12/27/2022HQ-2AnswerDate RecordedPHQ-9 Total Erurk868Exercise Vital SignAnswerDate RecordedOn average, how many days [...] steady place to sleep or slept in [facility] (including now)?No 12/27/2022Housing Stability Vital SignAnswerDate RecordedIn the last 12 months, was there a time when you were not able to pay the mortgage or rent on time?No 05/29/2024In the past 12 months, how many times have you moved where you were living?t any time in the past 12 months, were you homeless or living in a [place] [facility] [place] (including now)?No05/29/2024Food InsecurityAnswerDate Recorded Within the past 12 months, you worried that your food would run out before you got the money to buymore.Within the past 12 months, the food you bought just didn't last and you didn't have money to get more. CommentsNoSex and Gender InformationValueDate RecordedSex Assigned at BirthNot on fileLegal YhkZihngg91/10/2013 2:36 PM ESTGender IdentityNot on file Sexual OrientationNot on filedocumented as of this encounter Plan of Treatment DateTypeDepartmentCare Team (Latest Contact Info)Ubrxkjjvniq42/17/2026 2:00 PM EDTOffice Visit [facility] [address] [place] [address] Chato Bradshaw DO [address] [place] [address] 6 mo f/udocumented as of this encounter Visit Diagnoses Not on filedocumented in this encounter Additional Health Concerns AssessmentNoted TimeA fall risk assessment has been completed for the patient 07/18/2024 1:11 PM EDTdocumented as of this encounter Care Teams Team MemberRelationshipSpecialtyStart DateEnd Date Chato Bradshaw DO PCP - GeneralFamily Medicine06/21/21documented as of this encounter
--- OUTSIDE RECORDS SUMMARY | 2025-02-21 13:58 | XMS_ITS | Clinical Summary ---
Author Organization Demetrio Reed [facility] Address [address], [address] [place] [address] Care Team Providers Care Host/Hostess Restaurant Name Role Phone Chato Bradshaw DO Primary Care Provider [phone] Allergies Active AllergyReactionsCriticalityNoted DateCommentsBenazeprilOther (See Comments)01/28/2019MeperidineNausea And MyelzsdsVtojue90/12/2022LatexRashLow 06/28/20216374Adupttf07/30/2023VortioxetineOther (See Comments)01/28/2019 Medications MedicationSigDispense QuantityRefillsLast FilledStart DateEnd DateStatus albuterol (ACCUNEB) 0.63 MG/3ML nebulizer solution Take 3 mLs by nebulization every 4 hours as needed for WheezingActive amLODIPine (NORVASC) 10 MG tablet Take 0.5 tablets by mouth daily06/28/2020ctive cetirizine (ZYRTEC) 10 MG tablet Take 1 tablet by mouth daily08/05/2022ctive clopidogrel (PLAVIX) 75 MG tablet every 24 hours08/04/2022ctive fluticasone (FLONASE) 50 MCG/ACT nasal spray SPRAY 1 SPRAY INTO EACH NOSTRIL TWICE A DAY08/11/2022ctive gabapentin (NEURONTIN) 300 MG capsule Take 1 capsule by mouth.08/10/2022ctive TRUE METRIX BLOOD GLUCOSE TEST strip TEST BLOOD SUGAR UP TO 10 TIMES A DAY10/16/2022ctive LORazepam (ATIVAN) 0.5 MG tablet Take 1 tablet by mouth nightly.08/09/2021ctive ondansetron (ZOFRAN-ODT) 4 MG disintegrating tablet DISSOLVE 1 TABLET ON THE TONGUE TWICE DAILY NEEDED FOR NAUSEA AND VOMITING 08/20/2022ctive celecoxib (CELEBREX) 100 MG capsule Take 1 capsule by mouth 2 times daily 180 capsule ctive fenofibrate (TRICOR) 145 MG tablet Fenofibrate Nanocrystallized Active 145 MG PO Daily May 26, 2021 1:00am 05/26/2021ctive mupirocin (BACTROBAN) 2 % ointment by Nasal route09/14/2021ctive rivaroxaban (XARELTO) 2.5 MG TABS tablet Take by mouth06/18/2021ctive albuterol sulfate HFA (PROVENTIL HFA) 108 (90 Base) MCG/ACT inhaler Inhale 2 puffs into the lungs every 4 hours as needed for Wheezing 18 g ctive ketoconazole (NIZORAL) 2 % shampoo USE SHAMPOO ONCE DAILY NEEDED 120 mL ctive DUPIXENT 300 MG/2ML SOPN injection 04/26/2023ctive doxepin (SINEQUAN) 10 MG capsule TAKE 1 CAPSULE BY MOUTH AT NIGHT04/04/2023ctive desvenlafaxine succinate (PRISTIQ) 25 MG TB24 extended release tablet 3 tablets daily11/02/2023ctive valsartan (DIOVAN) 80 MG tablet Indications:Primary hypertensionTAKE 1 TABLET BY MOUTH EVERY DAY 90 tablet tive amLODIPine-valsartan (EXFORGE) 5-160 MG per tablet Take 1 tablet by mouth daily01/23/2024ctive nystatin (MYCOSTATIN) 473957 UNIT/ML suspension Nystatin Active 5 ML PO Four times daily 200 September 10, 2023 12:00am swish and odsidlb5909/10/2023ctive ofloxacin (OCUFLOX) 0.3 % solution INSTILL 1 DROP INTO RIGHT EYE 4 TIMES A DAY BEGIN AFTER 1ST POST-OP EXAM 5Active prednisoLONE acetate (PRED FORTE) 1 % ophthalmic suspension PLACE 1 DROP INTO RIGHT EYE 4 TIMES A DAY *BEGIN AFTER FIRST POST-OP EXAM* 5Active triamcinolone (KENALOG) 0.1 % cream Triamcinolone Acetonide Active APPLIC TOPICAL September 10, 2023 12:00am09/10/2023 Active insulin lispro, 1 Unit Dial, (HUMALOG KWIKPEN) 100 UNIT/ML SOPN Indications:Type 1 diabetes mellitus with diabetic chronic kidney disease, unspecified CKD stage (HCC)Dosing per insulin pump. Max dosing 37 units per day. 10 mL 5Active levothyroxine (SYNTHROID) 50 MCG tablet Indications:Other specified hypothyroidismTake 1 tablet by mouth daily 90 tablet 5Active aspirin 81 MG chewable tablet Take 1 tablet by mouth daily 30 tablet tive vitamin D (VITAMIN D3) 50 MCG (2000 UT) CAPS capsule Take 1 capsule by mouth daily 90 capsule tive estrogens, conjugated, (PREMARIN) 0.3 MG tablet Indications:Hormone imbalanceTake 1 tablet by mouth daily 21 tablet tive alirocumab (PRALUENT) 75 MG/ML SOAJ injection pen Indications:Mixed hyperlipidemia due to type 2 diabetes mellitus (HCC)Inject 1 mL into the skin every 14 days 2.24 mL 5Active Insulin Pump Accessories [facility] Indications:Type 1 diabetes mellitus with diabetic chronic kidney disease, unspecified CKD stage (HCC)1 each by Does not apply route Daily 1 each tive metoprolol tartrate (LOPRESSOR) 25 MG tablet Take 0.5 tablets by mouth 2 times daily 180 tablet tive progesterone (PROMETRIUM) 200 MG CAPS capsule Indications:Hormone imbalanceTAKE 1 CAPSULE BY MOUTH EVERY DAY AT NIGHT 90 capsule 5Active Continuous Glucose Sensor (DEXCOM G7 SENSOR) [facility] USE FOR CONTINUOUS BLOOD GLUCOSE MONITORING, REPLACE EVERY 10 DAYS09/16/2024 Active cilostazol (PLETAL) 50 MG tablet TAKE 1 TABLET (50 MG TOTAL) BY MOUTH IN THE MORNING AND 1 TABLET (50 MG TOTAL) BEFORE GGXWFVH63/01/2025Active Insulin Disposable Pump (OMNIPOD 5 [id number] PODS GEN 5) [facility] 5Active Lisdexamfetamine Dimesylate 60 MG CAPS Take 1 capsule by mouth every morning.5Active valACYclovir (VALTREX) 1 g tablet TAKE 1 TABLET BY MOUTH THREE TIMES A DAY FOR 30 DAYS5Active methylPREDNISolone (MEDROL DOSEPACK) 4 MG tablet Take by mouth. 1 kit 5Active fluticasone furoate-vilanterol (BREO ELLIPTA) 200-25 MCG/ACT AEPB inhaler Indications:Chronic obstructive pulmonary disease, unspecified COPD type (HCC) Inhale 1 puff into the lungs daily 60 each 5Active famotidine (PEPCID) 20 MG tablet TAKE 1 TABLET BY MOUTH TWICE A DAY 180 tablet 5Active ibuprofen (ADVIL;MOTRIN) 800 MG tablet TAKE 1 TABLET BY MOUTH EVERY 8 HOURS NEEDED FOR PAIN 120 tablet 5Active pantoprazole (PROTONIX) 40 MG tablet Indications:Esophageal dysphagia,Gastroesophageal reflux disease, unspecified whether esophagitis presentTAKE 1 TABLET BY MOUTH EVERY DAY 90 tablet 5Active HUMALOG 100 UNIT/ML SOLN injection vial DOSING PER INSULIN PUMP. MAX DOSING 37 UNITS PER DAY. 10 mL 5Active pantoprazole (PROTONIX) 40 MG tablet Indications:Esophageal dysphagia,Gastroesophageal reflux disease, unspecified whether esophagitis presentTAKE 1 TABLET BY MOUTH EVERY DAY 90 tablet 104/5104/12/2024Discontinued HUMALOG 100 UNIT/ML SOLN injection vial DOSING PER INSULIN PUMP. MAX DOSING 37 UNITS PER DAY. 10 mL 5104/11/2024Discontinued Active Problems ProblemNoted DateDiagnosed DateStatin dysbjqvs51/05/2025Moderate major bwiqtwoxmq96/13/2025Pituitary sdnufqo5005/29/2024Mixed hyperlipidemia due to type 2 diabetes /13/2025Esophageal boonxllqb26/17/2024History of reconstructive repair of hucmxqoqp06/17/2024GERD (gastroesophageal reflux disease)01/03/2024rimary xbnjbabbihcr66/11/2022Type 1 diabetes mellitus 06/27/2021eripheral arterial wgzcisk6706/19/2021 Encounters DateTypeDepartmentCare BrsmEehtqssrzna36/23/2025Refill [facility] [address] [place] [address] Chato Bradshaw, Medication Rhdbpg5702/07/2025Refill [facility] [address] [place] [address] Lona Rosario, FACING B[employer]ER - [employer] Medication Yvurga9301/18/2025Refill [facility] [address] [place] [address] Chato Bradshaw DO Medication Iovngv8201/05/2025 2:59 PM EDT - 01/07/2025 11:59 PM EDTHospital Encounter [facility] [address] [place] [address] Chato Bradshaw DO Personal history of tobacco use Discharge Disposition: Home or Self Care12/21/2024Refill [facility] [address] [facility] [place] [address] Lona Rosario, FACING BASTER - [employer]PECT[employer] Medication Tjfogs6412/11/2024Telephone [address] [address] Chato Bradshaw DO Other (Regarding faxed form. Needing to update/complete and refax)12/02/2024 Results Follow-Up [address] [address] Chato Bradshaw DO 12/01/2024 2:15 PM EDTOffice Visit [address] [address] Chato Bradshaw DO Type 1 diabetes mellitus with diabetic chronic kidney disease, unspecified CKD stage (HCC) (PrimaryDx); Chronic obstructive pulmonary disease, unspecified COPD type (HCC); Statin myopathy; Moderate major depression (HCC); Primary hypertension; Personal history of tobacco use; Mixed simple and mucopurulent chronic bronchitis (HCC); Screening for colon cancer; Mixed hyperlipidemia due to type 2 diabetes mellitus (HCC); Peripheral arterial disease; Urinary retention; Neurogenic bladder; Hypothyroidism, unspecified type12/01/2024Orders Only [address] [address] Augustine, Chato S, DO Hypothyroidism, unspecified type; Primary hypertension; Mixed hyperlipidemia due to type 2 diabetes mellitus (HCC); Peripheral arterial zkbylti0612/01/2024Telephone [facility] [address] [place], [place] [id number] Kezia Munoz Juwan Medication Management (statin)from Last 3 Months Immunizations ImmunizationAdministration DatesNext DpvBWY90Hepatitis B103/20/2004, 11/01/2004TAYO VELOZ, M-M-R II, (age 12m+), SC, 0.5mL11/08/2004,09/17/1972Td vaccine (adult)11/01/2004 Family History Medical HistoryRelationNameCommentsNo Known ProblemsBrotherNo Known Problems FatherNo Known ProblemsMaternal GrandfatherNo Known ProblemsMaternal Grandmother No Known ProblemsMotherNo Known ProblemsPaternal GrandfatherNo Known Problems Paternal GrandmotherCrohn's DiseaseSisterDiabetesSisterColon CancerNeg Hx RelationNameStatusCommentsBrotherFatherDeceasedMaternal GrandfatherMaternal GrandmotherMotherDeceasedPaternal GrandfatherPaternal GrandmotherSisterAlive Social History Tobacco UseTypesPacks/DayYears UsedDateSmoking Tobacco: [id number] - mokeless Tobacco: Never Tobacco Cessation:Counseling Given: No Alcohol UseStandard Drinks/WeekCommentsYes3 (1 standard drink = 0.6 oz pure alcohol) Couple times a week [facility] UtilitiesAnswerDate RecordedIn the past 12 months has the [employer], [employer], oil, or water [employer] threatened to shut off services in your home?No05/29/2024UDIT-CAnswerDate RecordedQ1: How often do you have a drink containing alcohol?2-4 times a month07/18/2024Q2: How many drinks containing alcohol do you have on a typical day when you are drinking?1 or 2 07/18/2024Q3: How often do you have six or more drinks on one occasion?Never 07/18/2024Overall Financial Resource Strain (CARDIA)AnswerDate RecordedHow hard is it for you to pay for the very basics like food, housing, medical care, and heating?Not hard at all12/27/2022HQ-2AnswerDate RecordedPHQ-9 Total Score0 07/18/2024Exercise Vital SignAnswerDate RecordedOn average, how many days per week do you engage in moderate to strenuous exercise (like a brisk walk)?0 days 07/18/2024On average, how many minutes do you engage in exercise at this level?0 min07/18/2024Hunger Vital SignAnswerDate RecordedWithin the past 12 months, you worried that your food would run out before you got the money to buymore.Never true05/29/2024Within the past 12 months, the food you bought just didn't last and you didn't have money to get more.Never true05/29/2024PRAPARE - TransportationAnswerDate RecordedIn the past 12 months, has lack of transportation kept you from medical appointments or from getting medications?No 05/29/2024In the past 12 months, has lack of transportation kept you from meetings, work, or from getting things needed for daily living?No05/29/2024 Housing Stability Vital SignAnswerDate RecordedUnable to Pay for Housing in the Last YearNot on file12/27/2022Number of Places Lived in the Last YearNot on file 12/27/2022In the last 12 months, was there a time when you did not have a steady place to sleep or slept in [facility] (including now)?No12/27/2022Housing Stability Vital SignAnswerDate RecordedIn the last 12 months, was there a time when you were not able to pay the mortgage or rent on time?No05/29/2024In the past 12 months, how many times have you moved where you were living? At any time in the past 12 months, were you homeless or living in a usp (including now)?No05/29/2024Food InsecurityAnswerDate RecordedWithin the past 12 months, you worried that your food would run out before you got the money to buy more.Within the past 12 months, the food you bought just didn't last and you didn't have money to get more.CommentsNoSex and Gender InformationValueDate RecordedSex Assigned at BirthNot on fileLegal Sex Nnwkbu1004/28/2012 2:36 PM ESTGender IdentityNot on fileSexual OrientationNot on file Last Filed Vital Signs Vital SignReadingTime TakenCommentsBlood Mbtxosph112/8209 2:35 PM EDT Wblar771812/01/2024 2:35 PM UIZKpjxstlhyfv58.4 ??C (97.6 ??F)12/01/2024 2:35 PM EDTRespiratory Ikfu226604/24/2023 12:45 PM ESTOxygen Vzesucweuu59%12/01/2024 2:35 PM EDTInhaled Oxygen Concentration--Lhdywm66.3 kg (126 lb 6.4 oz)12/01/2024 2:35 PM KNFQucxqt058.6 cm (5' 4 )12/01/2024 2:35 PM EDTBody Mass Index21.709 2:35 PM EDT Plan of Treatment DateTypeDepartmentCare Team (Latest Contact Info)Ugizkgwzdnl76/17/2026 2:00 PM EDTOffice Visit [facility] [address] [place] [address] Chato Bradshaw DO [address] [place] [address] 6 mo f/uHealth MaintenanceDue DateLast DoneCommentsHIV lgmput3712/14/1981Hepatitis C hafsso6412/14/1984Pneumococcal 50+ years Vaccine (1 of 2 - PCV)1985 Hepatitis B vaccine (3 of 3 - 19+ 3-dose series), 11/01/2004 Ybcwkaajcsx48/28/2012Colorectal Cancer Ndkrhe8212/15/2011FIT/FOBT: Average risk 12/15/2011Fecal-DNA (Cologuard): Average risk12/15/2011Sigmoidoscopy/CT sutpbdikjyae85/28/2012DTaP/Tdap/Td vaccine (3 - Tdap), 12/31/1977Shingles vaccine (1 of 2)2016Flu vaccine (#1)10/17/2024OVID-19 Vaccine ( season)2024Diabetic retinal exam Breast cancer dnnaxs92, 2Depression Monitoring , 07/18/2024nnual Wellness Visit (Medicare)07/19/2025 07/18/2024A1C test (Diabetic or Prediabetic), 05/29/2024, 11/06/2023, Additional history existsDiabetic Alb to Cr ratio (uACR) test Diabetic foot exam, 11/06/2023, 11/06/2023, Additional history existsGFR test (Diabetes, CKD 3-4, OR last GFR 15-59), 01/03/2024, 02/19/2023, Additional history exists Cykbkv44, 01/03/2024, 04/25/2022Lung Cancer Screening &/or Njrunjarob32, 01/03/2024, 05/21/2023epression Screen Ubqjgsbbwlyd67/02/2025, 07/18/2024Hepatitis A vaccineAged OutNo longer eligible based on patient's age to complete this topicHib vaccineAged OutNo longer eligible based on patient's age to complete this topicMeningococcal (ACWY) vaccineAged OutNo longer eligible based on patient's age to complete this topic Meningococcal B vaccineAged OutNo longer eligible based on patient's age to complete this topicPolio vaccineAged OutNo longer eligible based on patient's age to complete this topic Procedures Procedure NamePriorityDate/TimeAssociated DiagnosisCommentsCT LUNG SCREENING (INITIAL/ANNUAL)Zpfvssu2401/05/2025 3:14 PM EDT Personal history of tobacco use TSH REFLEX TO SR7Hmdrzlt49/15/2025 3:39 PM EDT Hypothyroidism, unspecified type LIPID BYCZQQbbqhdv97/15/2025 3:39 PM EDT Mixed hyperlipidemia due to type 2 diabetes mellitus (HCC) Peripheral arterial disease COMPREHENSIVE METABOLIC PANEL, ASGVBUIUyqofcw47/15/2025 3:39 PM EDT Primary hypertension CBC WITH AUTO NHIENOJJYAGXGazryae20/15/2025 3:39 PM EDT Primary hypertension T4, JLQRNmfslrm41/15/2025 3:39 PM EDT Hypothyroidism, unspecified type ALBUMIN/CREATININE RATIO, NQRJRHxqlgtg72/15/2025 3:20 PM EDT Type 1 diabetes mellitus with diabetic chronic kidney disease, unspecified CKD stage (HCC) POCT GLYCOSYLATED HEMOGLOBIN (HGB A1C)Ellbvge9812/01/2024 3:19 PM EDT Type 1 diabetes mellitus with diabetic chronic kidney disease, unspecified CKD stage (HCC) FIORELLA KELLY DIGITAL SCREEN RIXTSYAQWFpcoaom03/17/2024 2:57 PM EDT Screening mammogram for breast cancer [facility] DIABETES EYE BDCIUrfzvjv02/15/2024 11:33 AM EDTfrom Last 3 Months or Most Recently Relevant to Health Maintenance Results * CT Lung Screen (Initial/Annual/Baseline) (01/05/2025 3:14 PM EDT)Anatomical RegionLateralityModalityLung, ChestComputed TomographySpecimen (Source) Anatomical Location / LateralityCollection Method / VolumeCollection Time Received Time01/06/2025 11:04 AM EDT Impressions 01/06/2025 11:11 AM EDT 1. There is no pulmonary infiltrate or pulmonary mass 2. Emphysematous changes 3. Stable 6 mm smooth bordered nodule seen within the right middle lobe abutting the right major fissure best appreciated on sagittal image number 119 LUNG RADS: Lung-RADS 2 - Benign (v2022) Management: ??12 month screening LDCT Narrative 01/06/2025 11:11 AM EDT EXAMINATION: LOW DOSE SCREENING CT OF THE CHEST WITHOUT CONTRAST 01/05/2025 3:11 pm TECHNIQUE: Low dose lung cancer screening CT of the chest was performed without the administration of intravenous contrast. ??Multiplanar reformatted images are provided for review. Automated exposure control, iterative reconstruction, and/or weight based adjustment of the mA/kV was utilized to reduce the radiation dose to as low as reasonably achievable. COMPARISON: 01/03/2024 HISTORY: ORDERING SYSTEM PROVIDED HISTORY: Personal history of tobacco use TECHNOLOGIST PROVIDED HISTORY: Age: Patient is 58 y.o. Smoking History: ?? Tobacco Use Smoking status: Former Packs/day: 0.00 Years: 1 pack/day for 36.0 years (36.0 ttl pk-yrs) Types: Cigarettes Start date: 1985 Quit date: 2021 Years since quittin.7 Smokeless tobacco: Never Date of last lung cancer screenin01/03/2024 Is there documentation of shared decision making?->Yes Is this a low dose CT or a routine CT?->Low Dose CT Is this the first (baseline) CT or an annual exam?->Annual Does the patient show any signs or symptoms of lung cancer?->No Smoking Status?->Former Date quit smoking?->03/19/21 Pack Years->36 What reading provider will be dictating this exam?->CRC FINDINGS: Mediastinum: The thoracic aorta is normal in caliber. ??There is no pericardial effusion. ??No mediastinal or hilar pathological lymphadenopathy is identified. ??There is qwmw-gu-slwutniz calcified plaque within the coronary arteries. Lungs/Pleura: ??There are emphysematous changes. ??There is no pulmonary infiltrate, mass or suspicious pulmonary nodule. ??There is a stable smooth bordered 6 mm nodule abutting the right major fissure tucked within the superior aspect of the right middle lobe. ??This may represent a benign Keira fissural lymph node which is stable. ??There is no pleural thickening or pleural effusion. Upper Abdomen: ?? Limited images of the upper abdomen demonstrate no acute abnormality. Soft Tissues/Bones: ??Age related degenerative changes of the visualized osseous structures without focal destructive lesion. Authorizing ProviderResult TypeResult StatusGregory S Augustine DOIMG CT ORDERABLES Final Result * (ABNORMAL) Comprehensive Metabolic Panel, Fasting (12/01/2024 3:39 PM EDT) ComponentValueRef RangeTest MethodAnalysis TimePerformed AtPathologist WjzvigruuKebkbe600355 - 144 mEq/L12/01/2024 6:34 PM [facility] LABPotassium5.9(H)3.4 - 4.9 mEq/L12/01/2024 6:34 PM [facility] MFKPwurfyvh90930 - 107 mEq/L12/01/2024 6:34 PM [facility] KIERZ02080 - 31 mEq/L12/01/2024 6:34 PM [facility] LABAnion Tjl680 - 15 mEq/L12/01/2024 6:34 PM [facility] LABGlucose, Ipadzhw918(H)70 - 99 mg/dL12/01/2024 6:34 PM [facility] RTMBWU492 - 20 mg/dL12/01/2024 6:34 PM [facility] LABCreatinine0.760.50 - 0.90 mg/dL12/01/2024 6:34 PM [facility] LABEst, Glom Filt Rate>90.0>60012/01/2024 6:[address]T [facility] LABComment: Pediatric calculator link https://www.kidney.org/professionals/kdoqi/gfr_calculatorped Effective Dec 19, 2021 These results are not intended for use in patients <18 years of age. eGFR results are calculated without a race factor using the 2020 CKD-EPI equation. ??Careful clinical correlation is recommended, particularly when comparing to results calculated using previous equations. The CKD-EPI equation is less accurate in patients with extremes of muscle mass, extra-renal metabolism of creatinine, excessive creatinine ingestion, or following therapy that affects renal tubular secretion. Calcium9.48.5 - 9.9 mg/dL12/01/2024 6:34 PM [facility] Total Protein6.76.3 - 8.0 g/dL12/01/2024 6:34 PM [facility] LABAlbumin4.33.5 - 4.6 g/dL12/01/2024 6:34 PM [facility] LABTotal Bilirubin0.60.2 - 0.7 mg/dL12/01/2024 6:34 PM [facility] LABAlkaline Wbvfataaago6126 - 130 U/L12/01/2024 6:34 PM [facility] KXNJHL968 - 33 U/L12/01/2024 6:34 PM [facility] HFDVYQ849 - 35 U/L12/01/2024 6:34 PM [facility] LABGlobulin2.42.3 - 3.5 g/dL12/01/2024 6:34 PM [facility] LABSpecimen (Source)Anatomical Location / LateralityCollection Method / Volume Collection TimeReceived TimeBloodBLOOD SPECIMEN / Gkcmqis2912/01/2024 3:39 PM EDT 12/01/2024 6:23 PM EDT Narrative Authorizing ProviderResult TypeResult StatusB[facility] TopmissionHEMISTRY ORDERABLESFinal ResultPerforming OrganizationAddressCity/State/ZIP CodePhone Number [facility] [address] [phone] * TSH reflex to FT4 (12/01/2024 3:39 PM EDT)ComponentValueRef RangeTest Method Analysis TimePerformed AtPathologist SignatureTSH3.0100.440 - 3.860 uIU/mL 12/01/2024 6:34 PM [facility] LABComment: Free T4 will automatically reflex ??with a TSH result of <0.270 or >4.200 Specimen (Source)Anatomical Location / LateralityCollection Method / Volume Collection TimeReceived TimeBloodBLOOD SPECIMEN / Xubmcbn7112/01/2024 3:39 PM EDT 12/01/2024 6:23 PM EDT Narrative Authorizing ProviderResult TypeResult StatusNelsonia GEOLIDHEMISTRY ORDERABLESFinal ResultPerforming OrganizationAddressCity/State/ZIP CodePhone Number [facility] [address] [place] [address], [facility] [phone] * (ABNORMAL) CBC with Auto Differential (12/01/2024 3:39 PM EDT)ComponentValue Ref RangeTest MethodAnalysis TimePerformed AtPathologist OdenesgveIYB49.34.8 - 10.8 K/uL12/01/2024 6:30 PM [facility] LABRBC4.444.20 - 5.40 M/uL12/01/2024 6:30 PM [facility] LHMTvwqaxwamz94.1 12.0 - 16.0 g/dL12/01/2024 6:30 PM [facility] Shlbhnduxq51.937.0 - 47.0 %12/01/2024 6:30 PM [facility] JKCVAY310.1(H)79.4 - 94.8 fL12/01/2024 6:30 PM [facility] HOXQZI28.0(H)27.0 - 31.3 pg12/01/2024 6:30 PM [facility] LBEEICY97.633.0 - 37.0 %12/01/2024 6:30 PM [facility] RDW13.711.5 - 14.5 %12/01/2024 6:30 PM [facility] Xirjxyxga682622 - 400 K/12/01/2024 6:30 PM [facility] LABNeutrophils %70.0%12/01/2024 6:30 PM [facility] Lymphocytes %22.7%12/01/2024 6:30 PM [facility] Monocytes %4.9%12/01/2024 6:30 PM [facility] Eosinophils %1.6%12/01/2024 6:30 PM [facility] Basophils %0.3%12/01/2024 6:30 PM [facility] Neutrophils Absolute7.2(H)1.4 - 6.5 K/uL12/01/2024 6:30 PM [facility] LABLymphocytes Absolute2.31.0 - 4.8 K/uL12/01/2024 6:30 PM [address] [facility] LABMonocytes Absolute0.50.2 - 0.8 K/uL12/01/2024 6:[facility]Eosinophils Absolute0.20.0 - 0.7 K/12/01/2024 6:30 PM [facility] LABBasophils Absolute 0.00.0 - 0.2 K/12/01/2024 6:30 PM [facility] Specimen (Source)Anatomical Location / LateralityCollection Method / Volume Collection TimeReceived TimeBloodBLOOD SPECIMEN / Xdvlwgu9812/01/2024 3:39 PM EDT12/01/2024 6:18 PM EDT Narrative Authorizing ProviderResult TypeResult StatusGranada Hills [facility] DOHEMATOLOGY ORDERABLESFinal ResultPerforming OrganizationAddressCity/State/ZIP CodePhone Number [facility] [address] [place] [address], [facility] [phone] * T4, Free (12/01/2024 3:39 PM EDT)ComponentValueRef RangeTest MethodAnalysis TimePerformed AtPathologist SignatureT4 Free1.420.84 - 1.68 ng/dL12/01/2024 6:34 PM [facility] LABSpecimen (Source)Anatomical Location / LateralityCollection Method / VolumeCollection TimeReceived Time BloodBLOOD SPECIMEN / Sxfnikp0012/01/2024 3:39 PM EDT12/01/2024 6:23 PM EDT Narrative Authorizing ProviderResult TypeResult StatusGranada Hills [facility] DOCHEMISTRY ORDERABLESFinal ResultPerforming OrganizationAddressCity/State/ZIP CodePhone Number [facility] [facility] [address] [place] [address], [facility] [phone] * (ABNORMAL) Lipid Panel (12/01/2024 3:39 PM EDT)ComponentValueRef RangeTest MethodAnalysis TimePerformed AtPathologist SignatureCholesterol, Zvwat3919 - 199 mg/dL12/01/2024 7:13 PM [facility] LABComment:ATP III Cholesterol classification is Desirable.Mphybpvtvrfqc479 - 150 mg/dL12/01/2024 7:13 PM [facility]Comment:ATP III Triglycerides Classification is Normal.HDL91(H)40 - 59 mg/dL12/01/2024 7:13 PM [facility]: ATP III HDL Cholesterol Classification is high. Expected Values: Males: >55 = No Risk ?35-55 = Moderate Risk <35 = High Risk Females: >65 = No Risk ?45-65 = Moderate Risk <45 = High Risk NCEP Guidelines: ??Third Report July 2000 >59 = negative risk factor for CHD <40 = major risk factor for CHD LDL Kmwqhrnhzrp106 - 129 mg/dL12/01/2024 7:13 PM [facility] LABComment: ATP III LDL Classification is Optimal. LDL calculated using the Friedewald equation. Specimen (Source)Anatomical Location / LateralityCollection Method / Volume Collection TimeReceived TimeBloodBLOOD SPECIMEN / Iilmdky7912/01/2024 3:39 PM EDT 12/01/2024 6:23 PM EDT Narrative Authorizing ProviderResult TypeResult StatusGregory S Augustine DOCHEMISTRY ORDERABLESFinal ResultPerforming OrganizationAddressCity/State/ZIP CodePhone Number [facility] [address] [facility] [place] [address], [facility] [phone] * Albumin/Creatinine Ratio, Urine (12/01/2024 3:20 PM EDT)ComponentValueRef RangeTest MethodAnalysis TimePerformed AtPathologist SignatureAlbumin Urine <1.20Not Established mg/dL12/01/2024 8:19 PM [facility] LABCreatinine, Ur22.3Not Established mg/dL12/01/2024 7:38 PM [facility] LABAlbumin/Creatinine Ratiosee below0.0 - 30.0 mg/G012/01/2024 8:19 PM [facility] LABComment: - UR Microalbumin concentration is less than 1.2 mg/dL. - Unable to calculate Microalbumin/Creatinine Ratio without ??a Microalbumin concentration. Specimen (Source)Anatomical Location / LateralityCollection Method / Volume Collection TimeReceived TimeUrineURINE SPECIMEN / Yqsibbk9112/01/2024 3:20 PM EDT 12/01/2024 7:38 PM EDT Narrative Authorizing ProviderResult TypeResult StatusChato Ocampo Augustine DOURINE ORDERABLES Final ResultPerforming OrganizationAddressCity/State/ZIP CodePhone Number [facility] [address] [place] [address]. [place] [address], [facility] [phone] * POCT glycosylated hemoglobin (Hb A1C) (12/01/2024 3:19 PM EDT)ComponentValue Ref RangeTest MethodAnalysis TimePerformed AtPathologist SignatureHemoglobin A1C7.5%Specimen (Source)Anatomical Location / LateralityCollection Method / VolumeCollection TimeReceived TimeBLOOD SPECIMEN / Dniuekr0412/01/2024 3:19 PM EDT Narrative Authorizing ProviderResult TypeResult Abelardoerika Ocampo Augustine DOPOINT OF CARE TEST ORDERABLESFinal Result * [facility] DIGITAL SCREEN BILATERAL (01/03/2024 2:57 PM EDT)Anatomical Region LateralityModalityBreastBilateralMammographySpecimen (Source)Anatomical Location / LateralityCollection Method / VolumeCollection TimeReceived Time 01/12/2024 2:23 PM EDT Impressions 01/12/2024 2:25 PM EDT No mammographic evidence for malignancy. BIRADS: BIRADS - CATEGORY 1 Negative, no evidence of malignancy. ??Normal interval follow-up is recommended in 12 months. OVERALL ASSESSMENT - NEGATIVE A letter of notification will be sent to the patient regarding the results. The [employer] recommends annual mammograms for women 40 years and older. Performing Facility: [facility], [facility] [address] [place], [place] [address] Narrative 01/12/2024 2:25 PM EDT EXAMINATION: SCREENING DIGITAL BILATERAL MAMMOGRAM WITH TOMOSYNTHESIS, 01/03/2024 1:45 pm TECHNIQUE: Screening mammography of the bilateral breasts was performed with tomosynthesis. ??2D standard and 3D tomosynthesis combination imaging performed through both breasts in the MLO and CC projection. ??Computer aided detection was utilized in the interpretation of this exam. COMPARISON: Prior mammogram performed 06/01/2021 HISTORY: Screening. Tyrer-Cuzick v.8 Estimated Lifetime Risk: 3.42% As per [employer] and [employer] guidelines, a calculated lifetime risk [...] suspicious microcalcification, or area of architectural distortion. Authorizing ProviderResult TypeResult StatusP[facility] MAMMOGRAPHY ORDERABLESFinal Result * DIABETES EYE EXAM (01/01/2024 11:33 AM EDT) Narrative Authorizing ProviderResult TypeResult StatusHistorical Provider MDHEALTH MAINTENANCEFinal Result from Last 3 Months or Most Recently Relevant to Health Maintenance Insurance on file Advance Directives TypeDate RecordedPatient RepresentativeExplanationACP-Advance Directive07/05/2021 11:42 AM * Full Code (Latest Code Status on File) Date ActivatedDate WqfkwkzkvgpOyelpcuz82/6/2024 10:55 AM02/22/2024 3:28 PM * Full Code Date ActivatedDate InactivatedComments06/27/2021 3:49 PM07/04/2021 6:12 PM NameRelationshipHealthcare Agent RelationshipCommunicationAmber Osvaldo Primary Decision Maker* Care Teams Team MemberRelationshipSpecialtyStart DateEnd Date Chato Bradshaw DO PCP - GeneralFamily Medicine06/21/21
--- OUTSIDE RECORDS SUMMARY | 2025-02-21 13:58 | XMS_ITS | Clinical Summary ---
Author Organization [facility] Healthcare Address [address] [place] [address] Care Team Providers Care Stock Worker Name Role Phone Chato Bradshaw MD Primary Care Provider [phone] Allergies Active AllergyReactionsCriticalityNoted WfsbLykurxnfUmqhh83/12/2023 Medications MedicationSigDispense QuantityRefillsLast FilledStart DateEnd DateStatus amLODIPine (Norvasc) 10 MG tablet Take 10 mg by mouth in the morning.07/11/2022ctive buPROPion SR (Wellbutrin SR) 200 MG 12 hr tablet Take 1 tablet by mouth in the morning and 1 tablet before bedtime.Active celecoxib (CeleBREX) 100 MG capsule Take 100 mg by mouth in the morning and 100 mg before bedtime.08/10/2022ctive cetirizine (ZyrTEC) 10 MG tablet Take 10 mg by mouth in the morning.08/05/2022ctive clopidogrel (Plavix) 75 MG tablet 1 (one) time each day at the same time.08/04/2022ctive Rexulti 3 MG tablet 1 (one) time each day at the same time.Active cilostazol (Pletal) 50 MG tablet every 12 (twelve) hours.Active desvenlafaxine (Pristiq) 50 MG 24 hr tablet Take 1 tablet by mouth in the morning.Active estrogens, conjugated, (Premarin) 0.625 MG tablet 1 (one) time each day at the same time.Active levothyroxine (Synthroid, Levoxyl) 50 MCG tablet 08/25/2022ctive Active Problems ProblemNoted DateDiagnosed DateB12 ojjnyfotkc26/29/2023 Assessment & Plan (11/14/2022 12:21 PM EDT): Add B12 SL. If high dose (e.g. 5000 e.g. Laurence'), can take 3x/week. Redo B12 panel before appt. Cognitive xuzriis0808/28/2022 Assessment & Plan (11/14/2022 12:13 PM EDT): MR brain. Memory loss, need to distinguish multi-infarct from degen for treatment decision. (Pituitary to be imaged concomitantly.) Assessment & Plan (08/28/2022 3:19 PM EDT): MR brain. EEG 1 hour - Anayeli. Cogn panel. Nwlfvarcvsvqpr95/12/2023 Assessment & Plan (11/14/2022 12:07 PM EDT): SHIRLEY panel (subtests) - was to have been done last time but was not. Assessment & Plan (08/28/2022 3:24 PM EDT): Neurop panel. Pituitary dqrwwfu9008/28/2022 Assessment & Plan (08/28/2022 3:28 PM EDT): MR pituitary c/s Gd. Hormone panel. Neurogenic pain08/28/2022 Assessment & Plan (11/14/2022 12:20 PM EDT): (Continue current regimen.) Assessment & Plan (08/28/2022 3:28 PM EDT): (Continue med.) Uiawuzawbgoylx22/12/2023 Assessment & Plan (08/28/2022 3:29 PM EDT): Add diazepam 15 1 h before MR. Family History Medical HistoryRelationNameCommentsHeart diseaseMotherHypertensionMotherRelation NameStatusCommentsMotherAlive Social History Tobacco UseTypesPacks/DayYears UsedDateSmoking Tobacco: Every DayCigarettes Tobacco Cessation:Ready to Q uit: Not Asked; Counseling Given: Not Answered Alcohol UseStandard Drinks/WeekCommentsNot Currently0 (1 standard drink = 0.6 oz pure alcohol)CommentsUnknownSex and Gender InformationValueDate Recorded Sex Assigned at BirthNot on fileLegal MzuZbaxcf25/15/2023 7:23 PM EDTGender IdentityNot on fileSexual OrientationNot on file Last Filed Vital Signs Vital SignReadingTime TakenCommentsBlood Defunaqo678/8711/14/2022 12:03 PM EDT Xxokp431411/14/2022 12:03 PM EDTTemperature--Respiratory Rate--Oxygen Saturation-- Inhaled Oxygen Concentration--Kkkhzb74 kg (130 lb)11/14/2022 12:03 PM EDTHeight 162.6 cm (5' 4 )11/14/2022 12:03 PM EDTBody Mass Index22.31011/14/2022 12:03 PM EDT Plan of Treatment Not on file Insurance Care Teams Team MemberRelationshipSpecialtyStart DateEnd Date Chato Bradshaw MD [address] [place] [id number] PCP - GeneralPediatric08/28/22
--- OUTSIDE RECORDS SUMMARY | 2025-02-21 13:58 | XMS_ITS | Clinical Summary ---
Author Organization [facility] Address [address] [place] [address] Care Team Providers Care Fast Food Cook Name Role Phone Unavailable Primary Care Provider Unavailabl e Allergies Active AllergyReactionsCriticalityNoted DateCommentsLatexRash,Hives,Itching 03/21/2011 Medications MedicationSigDispense QuantityRefillsLast FilledStart DateEnd DateStatus MOTRIN 800 MG TABLET Indications:Other specified functional disorders of intestine,Cauda equina syndrome with neurogenic bladder (HCC)1 tab 3-5 times nyflm618Active PREMARIN 1.25 MG ORAL TAB Indications:Other specified functional disorders of intestine,Cauda equina syndrome with neurogenic bladder (HCC)1 tb qd 90 Active Additional Information Patient not taking.Reason: Other, Reported on 05/10/2022 insulin aspart(NOVOLOG 100 UNIT/ML SUB-Q) SLIDING SCALE. 2UNITS WITH MEALS IF SGEDSI537ctive pravastatin sodium(PRAVACHOL 20 MG TAB) Take one(1) tablet daily at bedtime.ctive varenicline (CHANTIX) 0.5 mg tablet Take 0.5 mg by mouth twice daily.Active Additional Information Patient not taking.Reason: Other, Reported on 05/10/2022 albuterol HFA (PROVENTIL HFA) 90 mcg/Actuation INHALATION inhaler Indications:Asthma (HCC)Inhale 2 Puffs as instructed every 4 hours as needed (for shortness of breath and wheezing.). 1 Inhaler 6003/21/2011ctive mometasone (ELOCON) 0.1 % ointment Apply to affected area once daily. 45 g ctive fluticasone (FLONASE) 50 mcg/actuation nasal spray SPRAY 1 SPRAY INTO EACH NOSTRIL TWICE A DAY 48 mL ctive cetirizine (ZYRTEC) 10 mg tablet take 1 tablet by mouth every day 90 tablet ctive Active Problems ProblemNoted DateDiagnosed DateLung rcavvez9908/29/2011 Family History Medical HistoryRelationCommentsAlcohol/DrugBrother 2PsychiatryBrother 3 Bipolar/schitzThyroidBrother 4AsthmaFatherCoronary Artery DiseaseMaternal GrandfatherDiabetesMaternal GrandfatherIschemic Heart DiseaseMaternal Grandfatherdied of heart attackHypertensionMotherLipidsMotherAlcohol/DrugSister 4DiabetesSister 5Coronary Artery DiseaseSister 6Ischemic Heart DiseaseSister 7 LipidsSister 8ThyroidSister 9Graves DiseaseThyroidSister 10nodules/thyroidectomy RelationStatusCommentsBrother 1AliveBrother 2Brother 3Brother 4Daughter 1Alive Daughter 2AliveDaughter 3AliveFatherAliveMaternal Aunt 1AliveMaternal Aunt 2 AliveMaternal GrandfatherDeceasedMaternal GrandmotherDeceasedMaternal Uncle 1 AliveMaternal Uncle 2Deceased (Age 59)MotherAlivePaternal Aunt 1AlivePaternal Aunt 2AlivePaternal GrandfatherDeceasedPaternal GrandmotherDeceasedPaternal UncleAliveSister 1AliveSister 2AliveSister 3AliveSister 4Sister 5Sister 6Sister 7Sister 8Sister 9Sister 10 Social History Tobacco UseTypesPacks/DayYears UsedDateSmoking Tobacco: FormerCigarettes0.815 Tobacco Cessation:Counseling Given: Not Answered Alcohol UseStandard Drinks/WeekCommentsYes0 (1 standard drink = 0.6 oz pure alcohol)occ-maybe one beer a monthArea Deprivation IndexAnswerDate Recorded National Score (1-100), lower number is lower hnmk485005/10/2022State Score (1- 10), lower number is lower riskNot on file3Data from: https://www.neighborhoodatlas.medicine.[facility].edu/. Last address used for fwgagjnaz[address]/22/2023CommentsNoSex and Gender Information ValueDate RecordedSex Assigned at BirthNot on fileLegal JnpHxpowo07/02/2012 10:06 AM ESTGender IdentityNot on fileSexual OrientationNot on file Last Filed Vital Signs Vital SignReadingTime TakenCommentsBlood Sfdfuspp106/8308/29/2011 2:00 PM EDT Wfkyh345608/29/2011 2:00 PM WBRTirvsppdkry64.8 ??C (98.2 ??F)05/10/2022 1:29 PM ESTRespiratory Jvqp595608/29/2011 2:00 PM EDTOxygen Wdutydmzom65%08/29/2011 2:00 PM EDTInhaled Oxygen Concentration--Mtxlvm84.3 kg (121 lb 14.6 oz)08/29/2011 2:00 PM RZYBcczba808.5 cm (5' 3.98 )08/29/2011 2:00 PM EDTBody Mass Index20.94 08/29/2011 2:00 PM EDT Plan of Treatment Health MaintenanceDue DateLast DoneCommentsAnxiety Wldyiygvi06/28/1985Depression Vnmxvbyac15/28/1985HIV Gnfiloynr19/28/1985Hepatitis C Irxbzgxmx93/28/1985 Cervical Cancer Gqkdjjruo08/28/1988Hepatitis B Vaccine (3 of 3 - 19+ 3-dose series), 11/01/2004CT Jqtkipkfhhjz23/28/2012Cologuard (FIT-DNA)12/15/20115656Hhxszgrdlrm77/28/2012Colorectal Cancer Qdxgwhrxv39/28/2012 Fecal Occult Blood12/15/20111792Orxrvtesgfnxa14/28/2012DTaP,Tdap,Td Vaccine (3 - Tdap), 12/31/1977Pneumococcal Vaccine: 50+ (1 of 1 - PCV) 2016Shingrix Vaccine (1 of 2)2016Covid-19 Vaccine (1 - 2024- season)2024Influenza Vaccine (#1)2024Mammogram Usmbpxmbo09/17/2025 01/03/2024, 10/17/2024Diabetes Lvzxcllot60/, 01/03/2024, 05/08/2023, Additional history existsLipid Xswydrsvi82, 08/29/2021, 07/11/2021, Additional history exists Procedures Procedure NamePriorityDate/TimeAssociated DiagnosisCommentsCOMPREHENSIVE METABOLIC JDPJADrupssw83/22/2010 11:44 AM EST Diabetes Mellitus Type 1 LIPID PANEL, GNEYTSMPigiarg94/22/2010 11:44 AM EST Diabetes Mellitus Type 1 from Last 3 Months or Most Recently Relevant to Health Maintenance Results * (ABNORMAL) LIPID PANEL BASIC (05/10/2009 11:44 AM EST)ComponentValueRef Range Test MethodAnalysis TimePerformed AtPathologist PitlwanbcMalaecjowqro405(H)30 - 149 mg/dLOHIOHE[facility] LABORATORYCholesterol, Nngzd484(H)100 - 199 mg/dLOHIOHEALTH [facility] LABORATORYHDL Rjrqqkgnidc52>55 mg/dLOHIOHEALTH [facility] LABORATORYVLDL Rvyyepjmlvc483 - 40 mg/dLOHIOHEALTH [facility] LABORATORYLDL Cholesterol, Bplzxpwqep51928 - 129 mg/dLOHIOHEALTH [facility] LABORATORYFasting Yfte0rbsHYXTSOSPGPARKVIEW [facility]ALTH [facility] LABORATORYTC:HDL Ratio2.971.00 - 5.00[facility] LABORATORYLDL:HDL Ratio1.420.50 - 3.55[facility] LABORATORYNon HDL Kbaqvigevmg01477 - 159 mg/dLOHIOHEALTH [facility] LABORATORYSpecimen (Source)Anatomical Location / LateralityCollection Method / VolumeCollection TimeReceived TimeBlood specimen (specimen)BLOOD SPECIMEN / Ujjzvfr6305/10/2009 11:44 AM EST Narrative Authorizing ProviderResult TypeResult StatusSaanastacia Reyna MDLABORATORYFinal ResultPerforming OrganizationAddressCity/State/ZIP CodePhone Number [facility] [address] [place] [address] * COMP METABOLIC PANEL (05/10/2009 11:44 AM EST)ComponentValueRef RangeTest MethodAnalysis TimePerformed AtPathologist SignatureProtein, Total7.46.0 - 8.4 g/dLADAMS COUNTY [facility] MAIN LABORATORYAlbumin5.03.5 - 5.0 g/dLOHIOHEALTH [facility] YRGOXCMOYJDxjlbhv53.08.5 - 10.5 mg/dLOHIOHEALTH [facility] LAB[facility]ATORY Bilirubin, Total0.40.0 - 1.5 mg/dLOHIOHEALTH [facility] LABORATORYAlkaline Vshnnrobyzd0257 - 150 U/LCPARKVIEW [facility] HBVDYWMMLEBXN528 - 40 U/L [facility] TVPQTXQBQQJdndqyv6587 - 100 mg/dLOHIOHEALTH [facility] BWTIFIPTQJUUW400 - 25 mg/dLOHIOHEALTH [facility] LABORATORYCreatinine1.000.70 - 1.40 mg/dLOHIOHEALTH [facility] TCSLUKEOCGOwwjuh129745 - 148 mmol/LCPARKVIEW [facility]ONTPELI[facility] LABORATORYPotassium4.33.5 - 5.0 mmol/LCPARKVIEW [facility]PELI[facility] WLGTLBBTZPJbcjxwko06006 - 110 mmol/LCPARKVIEW [facility]PELI[facility] WIFNUGYONVBF45595 - 32 mmol/LCPARKVIEW HE[facility]ONTPELIER [facility]ITAL LABORATORYAnion Xqi666 - 15 mmol/LCPARKVIEW [facility]PELI[facility] XEWRRYNUFMBUP805 - 45 U/LCPARKVIEW [facility]ALTH [facility]ONTPELI[facility] LABORATORYeGFR- >60[facility] LABORATORYeGFR-All Other Races>60. [facility] LABORATORYComment: eGFR (Estimated GFR) Units of measure: mL/min/1.73 meters squared eGFR is derived from the reexpressed MDRD Study equation using the following parameters: serum creatinine, age, gender and race. The creatinine assay has been calibrated to be traceable to IDMS. An eGFR <60 mL/min/1.73m2 for >3 months is consistent with chronic kidney disease. Refer to KDOQI guidelines for clinical interpretation. Specimen (Source)Anatomical Location / LateralityCollection Method / Volume Collection TimeReceived TimeBlood specimen (specimen)BLOOD SPECIMEN / Unknown 05/10/2009 11:44 AM EST Narrative Authorizing ProviderResult TypeResult StatusSangalbert Reyna MDLABORATORYFinal ResultPerforming OrganizationAddressCity/State/ZIP CodePhone Number [facility] [address] [place] [address] from Last 3 Months or Most Recently Relevant to Health Maintenance Insurance
--- OUTSIDE RECORDS SUMMARY | 2025-02-21 17:43 | XMS_ITS | CCD ---
Author Organization [facility] CliniSyin Care Team Providers Care Assistant Vice President Name Role Phone RJ ROLLINS Unavailable Unavailable SIRI JOHNSON Unavailable Unavailable Siri Johnson Primary Care Provider [phone] MARCE SOLO Attending Unavailable DENISE MALCOLM Consulting Unavailable DENISE MALCOLM Referring Unavailable SIRI JOHNSON Primary Care Unavailable DENISE MALCOLM Consulting Unavailable KAITLYNN HOLBROOK Attending Unavailable KAITLYNN HOLBROOK Admitting Unavailable PRISCILA LOYOLA Consulting Unavailable ELIZABETH, DR SIRI Ocampo Primary Care Unavailable MIRANDA NEWTON Admitting Unavailable MIRANDA NEWTON Attending Unavailable SKINNY, DR OLIVA Dasilva Consulting Unavailable MIRANDA NEWTON Consulting Unavailable LIGIA VALENTE Consulting Unavailable ELIZABETH, DR SIRI Ocampo Primary Care Unavailable JAYNE FOSTER Consulting Unavailable JAYNE FOSTER Admitting Unavailable JAYNE FOSETR Attending Unavailable MIRANDA NEWTON Consulting Unavailable LEDA NAVA Consulting Unavailable ELIZABETH, DR SIRI Ocampo Admitting Unavailable ELIZABETH, DR SIRI Ocampo Attending Unavailable ELIZBAETH, DR SIRI Ocampo Primary Care Unavailable Kanika Romero Unavailable Ethan Powers Unavailable Dianne Crocker Unavailable Siri Johnson Unavailable Unavailable Unavailable Unavailable Primary Care Provider Unavailsarmad e SIRI JOHNSON Referring Unavailable MAREK WEAVER Attending Unavailable DO Siri Johnson Primary Care Provider DO Siri Johnson Referring Provider MD Lonnie Major Attending Provider [phone] Rj Rollins Attending Unavailable Dr. Siri Johnson Primary Care Unavai Rj Dooley Referring Unavailable Elizabeth, Dr. Siri Washington Primary Care Rj Duarte Referring Unavailable Symone, Rj Attending Unavailable ELIZABETH, Siri Ocampo Attending Unavailable ELIZABETH, Siri Ocampo Attending Unavailable ELIZABETH, Siri Ocampo Attending Unavailable ELIZABETH, Siri Ocampo Attending Unavailable Symone, Rj Admitting Unavailable Rollins, Rj Attending Unavailable ELIZABETH, Siri Ocampo Attending Unavailable ELIZABETH, Siri S Admitting Unavailable ELIZABETH, Siri S Admitting Unavailable ELIZABETH, Siri S Attending Unavailable ELIZABETH, Siri S Attending Unavailable Aleida Duque Unavailable Siri Johnson MD Primary Care Provider Elizabeth MARRUFO, Siri Ocampo Primary Care Provider Elizabeth MARRUFO, Siri Felix Primary Care Provider Rj Rollins MD Unavailable [phone] NEERU Joy Attending Provider Gisela Joy Admitting Unavailable Gisela Joy Attending Unavailable Siri Johnson Primary Care Unavailable Siri Johnson Referring Unavailable Lonnie Major Admitting Unavailable Lonnie Major Attending Unavailable Unavailable Primary Care Provider Unavailsarmad e Elizabeth MARRUFO, Siri Primary Care Provider Elizabeth MARRUFO, Siri Primary Care Provider [phone] Elizabeth MARRUFO, Siri Primary Care Provider PRINCESS PIZANO Referring Unavailable SIRI JOHNSON [facility] Unavailable PRINCESS PIZANO Attending Unavailable PRINCESS PIZANO Referring Unavailable SIRI JOHNSON [facility] Unavailable Elizabeth MARRUFO, Siri Felix Primary Care Provider Rj Rollins MD Unavailable RJ ROLLINS Attending Unavailable RJ ROLLINS Referring Unavailable SIRI JOHNSON [facility] Care Unavailabl e RJ ROLLINS Attending Unavailable RJ ROLLINS Referring Unavailable SIRI JOHNSON FELIX [facility] Care Unavailabl e DIMITRY ESCALERA Attending Unavailable SIRI JOHNSON Primary Care Unavailable PRINCESS PIZANO Referring Unavailable SIRI JOHNSON [facility] Unavailable PRINCESS PIZANO Referring Unavailable SIRI JOHNSON Primary Care Unavailable PRINCESS PIZANO Referring Unavailable ELIZABETH, SIRI Primary Care Unavailable APLPRINCESS WHITTEN Attending Unavailable ELIZABETH, SIRI Referring Unavailable ELIZABETH, SIRI Primary Care Unavailable APLPRINCESS WHITTEN Referring Unavailable ELIZABETH, SIRI Primary Care Unavailable APLIN, PRINCESS Doe Referring Unavailable ELIZABETH, SIRI Primary Care Unavailable APLIN, PRINCESS Doe Attending Unavailable ELIZABETH, SIRI Referring Unavailable ELIZABETH, SIRI Primary Care Unavailable APLIN, PRINCESS Doe Attending Unavailable ELIZABETH, SIRI Referring Unavailable ELIZABETH, SIRI Primary Care Unavailable Elizabeth DO Siri S Primary Care Provider SWAPNA RANDALL Admitting Unavailable SWAPNA RANDALL Attending Unavailable ELIZABETH, SIRI Ocampo Primary Care Unavailable ELIZABETH, SIRI Ocampo Attending Unavailable ELIZABETH, SIRI Ocampo Referring Unavailable ELIZABETH, SIRI Ocampo Primary Care Unavailable Allergies Allergy ClassificationReported Allergen(s)Allergy TypeDate of OnsetReaction(s) FacilityAngiotensin Converting Enzyme (MIHIR) Inhibitors (1 source)benazeprilDrug Zhmfpjl91-94-1348ZyrexSivcxinnbAdena [facility] Center Latex (1 source)LatexSubstance Slzuftd89-73-9861zbwwJxnnboylhBethesda North Hospital Opioid Agonists (1 source)MeperidineDrug Noohjmh57-34-0757LudgkpqcUspagpwvvOhio State East Hospitalvortioxetine (1 source)vortioxetineDrug Wybwbsl66-16-1583GkhbihqBluffton Hospital (14 sources)Latex; Translations: [LATEX]Propensity to adverse reactions to drug 25-14-7081Nkql, Hives, Itching, UnknownMercy Health Work Phone: (20 sources)Meperidine; Translations: [meperidine]Drug Ywthkih76-74-3111Zmpckv And VomitingMercy Health (7 sources)laxtexPropensity to adverse reactionsBaptist Health Baptist Hospital of Miami Maana Other (4 sources)Hmg-Coa Reductase Inhibitors (Statins); Translations: [Statins] Allergy to drug (finding)[facility] Medius DO Work Phone: (4 sources)natural latex rubberAllergy to substance (finding)[facility] Medius DO Work Phone: (8 sources)benazepril; Translations: [benazepril]Drug Ewufvzq49-04-2160Mlrml (See Comments)[facility] (8 sources)vortioxetine; Translations: [vortioxetine]Drug Tnxzziq25-85-5914Sbnuy (See Comments)[facility] (15 sources)LatexPropensity to adverse qaaetoygh34-81-6857Ecajr, Itching, Rash [facility] (7 sources)HMG-CoA reductase inhibitorPropensity to adverse reactions to drug 39-57-0513CugeqnoAGHBallad Health (1 source)LatexDrug allergy (disorder)87-95-8443XhkxkkvbxTrihealth [facility] Repository (1 source)MeperidineDrug Jhfcxsl82-62-7738NeaicsxfwTrihealth [facility] Repository (3 sources)natural latex rubber; Translations: [LATEX, NATURAL RUBBER]Propensity to adverse reactions to drug (disorder)50-42-4136YshZxhhzw Repository (1 source)Hmg-Coa Reductase Inhibitors (Statins); Translations: [LNAYQPB-NZL-GNI REDUCTASE INHIBITORS]Propensity to adverse reactions to drug (disorder) 65-56-9007[facility] 3 Repository Medications Current Medications MedicationDrug Class(es)DatesSig (Normalized)Sig (Original)Accu-Chek Guide - (7 sources)Accu-Chek Guide - (Prior Auth#:[id number]) In Vitro for 30 Active acetaminophen 500 mg oral tablet (15 sources)Start: 55-93-5824fwpz 2 tablets by mouth every six hours as needed for painacetaminophen (TYLENOL EXTRA STRENGTH) 500 mg tablet Take 2 tablets (1,000 mg total) by mouth every6 (six) hours as needed for pain. 30 tablet 07/20/2021 ActiveStart: 51-42-5554hiksfzlokghip (TYLENOL) tablet 650 mgStart: 58-91-7716hgil 1 tablet by mouth every six hours as needed for painacetaminophen (TYLENOL) 325 MG tablet Take 1 tablet by mouth every 6 hours as needed for Pain 28 tablet 0 06/19/2021 [id number] 200 actuat albuterol 0.09 mg/actuat metered dose inhaler (20 sources)beta2-Adrenergic AgonistStart: 48-14-3171wozh 2 puff(s) by inhalation every four hours as needed for wheezingalbuterol sulfate HFA (PROVENTIL HFA) 108 (90 Base) MCG/ACT inhaler Inhale 2 puffs into the lungs ev inge 4 hours as needed for Wheezing 18 g 5 12/27/2022 ActiveStart: .5 mg, Nebulization, 4 TIMES DAILY PRN, Starting on 06/27/21 at 1549, Until Discontinued, Wheezing Initiate RT Bronchodilator Protocol: YesStart: 09-15-2019 Albuterol Sulfate HFA 108 (90 Base) MCG/ACT Inhalation Aerosol Solution PRN Quantity: 0 Refills: 0 Ordered: 03-Jun-2020 DO Start : 15-Sep-2019 ActiveStart: 24-96-6142vnyn 1 puff(s) by inhalation every four hoursAlbuterol Sulfate Active 1 PUFF INHALATION Every 4 hours January 28, 2019 1:00amStart: 06-89-1335sdme 2 puff(s) by inhalation every four hours as needed for wheezingalbuterol HFA (PROVENTIL HFA) 90 mcg/Actuation INHALATION inhaler Indications: Asthma Inhale 2 Puffs as instructed every 4 hours as needed (for shortness of breath and wheezing.). 1 Inhaler 6 03/21/2011 Activealbuterol (ACCUNEB) 0.63 mg/3 mL nebulizer solution 3 mL (0.63 mg total). Activealbuterol (ACCUNEB) 0.63 MG/3ML nebulizer solution Take 3 mLs by nebulization every 4 hours as needed for Wheezing ActiveAlbuterol Sulfate HFA 108 (90 Base) MCG/ACT (Prior Auth#:[id number]) Inhalation for 16 ActiveAlbuterol Sulfate HFA 108 (90 Base) MCG/ACT (Prior Auth#:[id number]) Inhalation for 16 ActiveAlbuterol Sulfate HFA 108 (90 Base) MCG/ACT (Prior Auth#:[id number]) Inhalation for 16 ActiveComment on above:Inhale 2 Puffs as instructed every 4 hours as needed (for shortness of breath and wheezing.).1 ml alirocumab 75 mg/ml auto-injector (20 sources)PCSK9 InhibitorStart: 09-05-2024 End: 67-72-3464kfxnfpdvjk (Praluent Pen) 75 mg/mL pen injector Indications: Mixed hyperlipidemia , PVD (peripheralvascular disease) , Type 2 diabetes mellitus with other circulatory complication, with long-term current use of insulin , Statin intolerance Inject 75 mg as directed every 14 (fourteen) days. 6 Pen 09/05/2025 ActiveStart: 04-02-2024 End: 17-75-7010tkntmd 75 mg by subcutaneous injection every other weekPraluent Pen 75 mg/mL pen injector Indications: Hyperlipidemia, unspecified INJECT SUBCUTANEOUSLY ONCE EVERY 2 WEEKS 6 Pen 3 04/02/2024 09/05/2024 Discontinued (Reorder)Start: 41-70-0555tickzlfxnd (PRALUENT) 75 MG/ML SOAJ injection pen Indications: Mixed hyperlipidemia due to type 2 diabetes mellitus (HCC) Inject 1 mL into the skin every 14 days 2.24 mL 5 05/29/2024 ActiveStart: 11-29-2021 End: 92-59-5806fdwkhu 75 mg by subcutaneous injection every other weekPRALUENT PEN 75 mg/mL pen injector INJECT SUBCUTANEOUSLY ONCE EVERY 2 WEEKS 07/20/2022 Active End: 39-02-2778Ozfbnmki Pen 75 mg/mL pen injector Inject 75 mg/mL under the skin every 14 (fourteen) days. 06/28/2023 Discontinued (Duplicate order)Alirocumab (Praluent Pen) 75 mg/mL pen injector (2 sources)Start: 87-12-7794Ywzvpwxbqj (Praluent Pen) 75 mg/mL pen injector Active MG SUBCUT September 10, 2023 12:00amamLODIPine 10 mg oral tablet (20 sources)Dihydropyridine Calcium Channel BlockerStart: 04-20-2023 End: 06-33-5809ziUZYBIxyg (Norvasc) 10 mg tablet Indications: Benign essential hypertension TAKE 1 TABLET DAILY 90tablet 3 04/20/2023 01/23/2024 Discontinued (Therapy completed)Start: 52-23-3889qdwx 0.5 tablet by mouth once daily amLODIPine (NORVASC) 10 MG tablet Take 0.5 tablets by mouth daily 06/28/2020 ActiveStart: 01-28-2019 End: 02-46-7120jfca 10 mg by mouth once dailyAmlodipine Active 10 MG PO Daily January 28, 2019 1:00amamLODIPine 5 mg / valsartan 160 mg oral tablet (5 sources)Dihydropyridine Calcium Channel Dominic, Angiotensin 2 Receptor BlockerStart: 01-23-2024 End: 89-35-1691krab 1 tablet by mouth once in the morningamLODIPine-valsartan (EXFORGE) 5-160 mg per tablet Take 1 tablet by mouth in the morning. 01/23/2024 09/05/2025 ActiveStart: 01-23-2024 End: 90-91-1353iqbz 1 tablet by mouth once dailyamLODIPine-valsartan (EXFORGE) 5-160 MG per tablet Take 1 tablet by mouth daily 01/23/2024 01/22/2025 Active AMLODIPINE BESYLATE, BULK, MISC (13 sources)take 10 mg by mouth in the morningAMLODIPINE BESYLATE, BULK, MISC Apply 10 mg to the mouth or throat in the morning. Activetake 10 mg by mouth once dailyAMLODIPINE BESYLATE, BULK, MISC Apply 10 mg to the mouth or throat daily. Activetake 10 mg by mouth once dailyAMLODIPINE BESYLATE, BULK, MISC Apply 10 mg to the mouth or throat daily. 0 Activeamoxicillin 875 mg / clavulanate 125 mg oral tablet (20 sources)Penicillin-class AntibacterialStart: 09-56-2457ueui 1 tablet by mouth every twelve hoursAmoxicillin-Pot Clavulanate 875-125 MG 1 tablet Orally every 12 hrs for 10 Apr, ActiveStart: 48-99-1016swlm 1 tablet by mouth every twelve hoursamoxicillin-pot clavulanate (AUGMENTIN) 875-125 mg per tablet Take 1 tablet by mouth every 12 (twelve) hours. 06/06/2021 ActiveStart: 99-50-7086zqrj 1 tablet by mouth every twelve hoursAmoxicillin-Pot Clavulanate 875-125 MG 1 tablet Orally every 12 hrs for 10 day(s) Aug, Not-Taking Augmentin Not-TakingAugmentin Activeapixaban 5 mg oral tablet (3 sources)Factor Xa InhibitorStart: 71-98-5270uxig 1 tablet by mouth twice dailyapixaban (ELIQUIS) 5 MG TABS tablet Take 1 tablet by mouth 2 times daily 60 tablet 1 07/08/2021 ActiveStart: 07-03-2021 End: 08-24-5988vowx 2 tablets by mouth twice dailyapixaban (ELIQUIS) 5 MG TABS tablet Take 2 tablets by mouth 2 times daily for 10 doses 10 tablet 0 07/03/2021 07/08/2021 ActiveStart: 06-30-2021 End: 96-92-3387gsnmzvrs (ELIQUIS) tablet 10 mgaspirin 81 mg chewable tablet (20 sources)Platelet Aggregation Inhibitor, Nonsteroidal Anti-inflammatory Drug Start: 06-28-2021 End: 30-49-9282dapt 1 tablet by mouth once dailyaspirin 81 MG chewable tablet Take 1 tablet by mouth daily 30 tablet 3 05/29/2024 ActiveStart: 24-01-8358ddhj 81 mg by mouth once dailyAspirin Active 81 MG PO Daily 365 365 May 25, 2021 1:00amStart: 01-28-2019 End: 32-09-7856bztf 324 mg by mouth once dailyAspirin Discontinued 324 MG PO Daily January 28, 2019 1:00am May 26, 2021 1:17pmBaby Aspirin Active benzonatate 100 mg oral capsule (1 source)Non-narcotic AntitussiveStart: 22-54-8535orzb 1 capsule by mouth three times daily as neededTessalon Perles 100 MG 1 capsule as needed Orally Three times a day for 7 days Apr, Activebrexpiprazole 3 mg oral tablet (2 sources)Atypical AntipsychoticRexulti 3 MG tablet 1 (one) time each day at the same time. 0 Activecefuroxime 250 mg oral tablet (2 sources)Cephalosporin AntibacterialStart: 07-04-2021 End: 59-88-2760jvue 1 tablet by mouth every twelve hourscefUROXime (CEFTIN) 250 MG tablet Take 1 tablet by mouth every 12 hours for 7 days 14 tablet 0 07/0407/11/2021 Activecelecoxib 100 mg oral capsule (6 sources)Nonsteroidal Anti-inflammatory DrugStart: 07-06-0704sttc 1 capsule by mouth twice dailycelecoxib (CELEBREX) 100 MG capsule Take 1 capsule by mouth 2 times daily 180 capsule 3 11/15/2022 Activecetirizine hydrochloride 10 mg oral tablet (15 sources)Histamine-1 Receptor AntagonistStart: 19-25-3300sdpg 1 tablet by mouth once dailycetirizine (ZYRTEC) 10 mg tablet take 1 tablet by mouth every day 90 tablet 1 10/26/2023 ActiveStart: 05-10-2022 End: 84-01-0217gdqm 1 tablet by mouth once dailycetirizine (ZYRTEC) 10 MG tablet Take 1 tablet by mouth daily 08/05/2022 ActiveComment on above:Take 1 tablet by mouth once daily.TAKE 1 TABLET BY MOUTH EVERY DAYcholecalciferol 0.05 mg oral capsule (20 sources)Vitamin DStart: 88-51-4156jeuq 1 capsule by mouth once dailyvitamin D (VITAMIN D3) 50 MCG (2000 UT) CAPS capsule Take 1 capsule by mouth daily 90 capsule 3 05/29/2024 ActiveStart: 01-88-1166llkg 1 capsule by mouth once daily Cholecalciferol (VITAMIN D3) 50 MCG (2000 UT) CAPS Take 1 capsule by mouth daily 90 capsule 3 11/15/2022 Activetake 1 capsule by mouth in the morning cholecalciferol, vitamin D3, 2,000 units capsule Take 1 capsule (2,000 Units total) by mouth in themorning. Activetake 1 capsule by mouth once daily Cholecalciferol (VITAMIN D3) 50 MCG (2000 UT) CAPS Take 2,000 Units by mouth daily 0 Activecilostazol 50 mg oral tablet (19 sources)Phosphodiesterase 3 InhibitorStart: 08-19-2024 End: 84-80-7156hheu 1 tablet by mouth in the morning, then take 1 tablet by mouth at bedtimecilostazol (PLETAL) 50 MG tablet TAKE 1 TABLET (50 MG TOTAL) BY MOUTH IN THE MORNING AND 1 TABLET (50 MG TOTAL) BEFORE BEDTIME 09/16/2024 Active Start: 06-28-2021 End: 63-87-3146acvn 1 tablet by mouth in the morning, then take 1 tablet by mouth at bedtimecilostazoL (PLETAL) 100 mg tablet Take 1 tablet (100 mg total) by mouth in the morning and 1 tablet(100 mg total) before bedtime. 07/03/2021 09/30/2024 Discontinued (Error)cilostazol (Pletal) 50 MG tablet every 12 (twelve) hours. 0 Activeciprofloxacin 3 mg/ml ophthalmic solution (1 source)Quinolone AntimicrobialStart: 30-12-8154kebj 1-2 drop(s) into the eye(s) every four hoursCiprofloxacin HCl 0.3 % 1-2 drops Ophthalmic every 4 hours for 7 days Apr, Activeclopidogrel 75 mg oral tablet (20 sources)P2Y12 Platelet InhibitorStart: 67-79-0034drsc 1 tablet by mouth in the morningclopidogreL (PLAVIX) 75 mg tablet Indications: Critical limb ischemia with history of revascularization of same extremity ([facility]) TAKE 1 TABLET (75 MG TOTAL) BY MOUTH IN THE MORNING 90 tablet 1 08/18/2024 ActiveStart: 08-04-2022 End: 20-43-5140prakyouqbuc (PLAVIX) 75 MG tablet every 24 hours 08/04/2022 ActiveStart: 68-33-1767pyql 1 tablet by mouth once dailyclopidogrel (Plavix) 75 mg tablet Take 1 tablet (75 mg) by mouth once daily. 08/04/2022 ActiveStart: 05-25-2021 End: 81-37-2151hfpo 75 mg by mouth once dailyClopidogrel Discontinued 75 MG PO Daily 90 180 May 25, 2021 1:00am June 18, 2021 12:40pmPlavix Active Continuous Glucose Sensor (DEXCOM G7 SENSOR) MISC (1 source)Start: 49-54-5011Hsoryipitw Glucose Sensor (DEXCOM G7 SENSOR) [facility] FOR CONTINUOUS BLOOD GLUCOSE MONITORING, REPLACE EVERY 10 DAYS 09/16/2024 Active cyclobenzaprine hydrochloride 10 mg oral tablet (18 sources)Muscle RelaxantStart: 07-20-2021 End: 03-43-9309siwrolzowcgcsoj (FLEXERIL) 10 mg tablet Take 1 tablet (10 mg total) by mouth in the morning and 1 tablet (10 mg total) at noon and 1 tablet (10 mg total) before bedtime. 30 tablet 07/20/2021 Xhprwx61 hr desvenlafaxine succinate 25 mg extended release oral tablet (14 sources)Serotonin and Norepinephrine Reuptake InhibitorStart: 11-02-2023 desvenlafaxine succinate (PRISTIQ) 25 MG TB24 extended release tablet 3 tablets daily 11/02/2023 ActiveStart: 53-77-9151rclg 1 tablet by mouth once daily desvenlafaxine 50 mg 24 hr tablet Take 1 tablet (50 mg) by mouth once daily. 09/10/2023 Activetake 1 tablet by mouth once dailydesvenlafaxine succinate (PRISTIQ) 50 MG TB24 extended release tablet Take 1 tablet by mouth daily 0 Activetake 1 tablet by mouth every twenty-four hours in the morning desvenlafaxine (Pristiq) 50 MG 24 hr tablet Take 1 tablet by mouth in the morning. 0 ActivePristiq ActiveDEXCOM G7 SENSOR device (1 source)Start: 10-28-5940MDZLSA G7 SENSOR device USE FOR CONTINUOUS BLOOD GLUCOSE MONITORING, REPLACE EVERY 10 DAYS 09/16/2024 Activedoxepin hydrochloride 10 mg oral capsule (4 sources)Tricyclic AntidepressantStart: 59-10-4679kwlecup (SINEQUAN) 10 MG capsule TAKE 1 CAPSULE BY MOUTH AT NIGHT 04/04/2023 Activedoxycycline hyclate 100 mg oral tablet (1 source)Tetracycline-class DrugStart: 01-02-2024 End: 26-70-1390anlb 1 tablet by mouth twice dailydoxycycline hyclate (VIBRA- TABS) 100 MG tablet Take 1 tablet by mouth 2 times daily for 10 days 20 tablet 01/02/2024 01/12/2024 Active2 ml dupilumab 150 mg/ml auto-injector (4 sources)Interleukin-4 Receptor alpha AntagonistStart: 76-58-4477Poenvrlzt (Dupixent Pen) 300 mg/2 mL pen injector Active MG SUBCUT September 10, 2023 12:00am Start: 28-35-9976JYPOYWUX 300 MG/2ML SOPN injection 04/26/2023 Activedupilumab (DUPIXENT PEN SUBQ) (3 sources)dupilumab (DUPIXENT PEN SUBQ) Inject under the skin every 14 (fourteen) days. ActiveDUPIXENT 300 MG/2ML SOPN injection (2 sources)Start: 81-60-7339WCRCZAMX 300 MG/2ML SOPN injection 04/26/2023 Active erythromycin 0.005 mg/mg ophthalmic ointment (1 source)Macrolide, Macrolide AntimicrobialStart: 85-29-2111jiztvtkabnde (ILOTYCIN) ophthalmic ointment APPLY 1 INCH TO LEFT EYE THREE TIMES A DAY FOR 5 DAYS 08/07/2024 Activeestrogens, conjugated (alf) 0.3 mg oral tablet (16 sources)EstrogenStart: 62-72-9215czll 1 tablet by mouth once dailyestrogens, conjugated, (PREMARIN) 0.3 MG tablet Indications: Hormone imbalance Take 1 tablet by mouth daily 21 tablet 3 05/29/2024 ActiveStart: 30-55-6583kcpl 1 tablet by mouth once dailyestrogens, conjugated, (PREMARIN) 0.3 MG tablet Indications: Hormone imbalance Take 1 tablet by mouth daily 21 tablet 3 11/15/2022 ActiveStart: 21-22-6711oikm 1 tablet by mouth once dailyPREMARIN 1.25 MG ORAL TAB Indications: Other specified functional disorders of intestine , Cauda equina syndrome with neurogenic bladder (HCC) 1 tb qd 90 1 07/25/2004 Activeestrogens, conjugated, (Premarin) 0.625 MG tablet 1 (one) time each day at the same time. 0 ActiveComment on above:1 tb qdfamotidine 20 mg oral tablet (3 sources)Histamine-2 Receptor AntagonistStart: 49-06-9390shcb 1 tablet by mouth twice dailyfamotidine (PEPCID) 20 MG tablet TAKE 1 TABLET BY MOUTH TWICE A DAY 180 tablet 1 12/25/2024 ActiveStart: 61-02-8783imqd 1 tablet by mouth twice dailyfamotidine (PEPCID) 20 MG tablet Take 1 tablet by mouth 2 times daily 60 tablet 3 02/22/2024 Activefamotidine (PEPCID) 20 mg tablet Take 1 tablet (20 mg total) by mouth. Activefenofibrate 145 mg oral tablet (20 sources)Peroxisome Proliferator Receptor alpha AgonistStart: 05-26-2021 fenofibrate (TRICOR) 145 MG tablet Fenofibrate Nanocrystallized Active 145 MG PO Daily May 26, 2021 1:00am 05/26/2021 ActiveStart: 07-45-6385sgrg 145 mg by mouth once dailyFenofibrate Nanocrystallized Active 145 MG PO Daily May 26, 2021 1:00amfenofibrate (FENOGLIDE) 120 MG tablet Take by mouth daily. Activefluconazole 150 mg oral tablet (20 sources)Azole AntifungalStart: 60-32-1386ufta 1 tablet by mouth once fluconazole (DIFLUCAN) 150 mg tablet Take 1 tablet (150 mg total) by mouth once. 07/18/2021 Activefluticasone propionate 0.05 mg/actuat metered dose nasal spray (8 sources)CorticosteroidStart: 75-47-3218icus 1 spray(s) nasal route twice dailyfluticasone (FLONASE) 50 MCG/ACT nasal spray SPRAY 1 SPRAY INTO EACH NOSTRIL TWICE A DAY 08/11/2022ctiveStart: 57-36-1163zqil 1 spray(s) nasal route twice dailyfluticasone (FLONASE) 50 mcg/actuation nasal spray SPRAY 1 SPRAY INTO EACH NOSTRIL TWICE A DAY 48 mL 1 08/11/2022 ActiveStart: 76-56-5986vafx 1 spray(s) nasal route twice dailyfluticasone (FLONASE ALLERGY RELIEF) 50 mcg/actuation nasal spray Use 1 [place] in each nostril twicedaily. 18.2 mL 5 05/10/2022 ActiveStart: 70-18-0146rrna 2 spray(s) nasal route once daily Fluticasone Propionate 50 MCG/ACT 2 sprays Nasally Once a day for 14 day(s) Aug, ActiveComment on above:Use 1 [place] in each nostril twice daily.SPRAY 1 SPRAY INTO EACH NOSTRIL TWICE A DAY30 actuat fluticasone furoate 0.2 mg/actuat / vilanterol 0.025 mg/actuat dry powder inhaler (2 sources)Corticosteroid, beta2-Adrenergic AgonistStart: 97-46-4421wmbj 1 puff(s) by inhalation once dailyfluticasone furoate-vilanterol (BREO ELLIPTA) 200-25 MCG/ACT AEPB inhaler Indications: Chronic obstructive pulmonary disease, unspecified COPD type (HCC) Inhale 1 puff into the lungs daily 60 each 5 0 12/01/2024 ActiveStart: 36-14-1060wvcv 1 puff(s) by mouth once dailyfluticasone furoate-vilanteroL (BREO ELLIPTA) 200-25 mcg/dose blister with device INHALE 1 PUFF BY MOUTH ONCE A DAY 06/26/2024 Qiouyr98 actuat formoterol fumarate 0.005 mg/actuat / mometasone furoate 0.2 mg/actuat metered dose inhaler (3 sources)Corticosteroid, beta2-Adrenergic AgonistStart: 32-83-1793mpsm 2 puff(s) by inhalation in the morningmometasone-formoterol (DULERA) 200-5 MCG/ACT inhaler Indications: Chronic obstructive pulmonary disease, unspecified COPD type (HCC) Inhale 2 puffs into the lungs in the morning and 2 puffs in the abraham boubacar. 1 each 3 05/08/2023 Activegabapentin 300 mg oral capsule (20 sources)Anti-epileptic AgentStart: 08-10-2022 End: 39-21-5752xkigbvvnkj (NEURONTIN) 300 MG capsule Take 1 capsule by mouth. 08/10/2022 ActiveStart: 60-64-1590etdepyyoiz (NEURONTIN) 100 mg capsule Indications: Neuralgia Take 1 capsule (100 mg total) by mouthin the morning and 1 capsule (100 mg total) at noon and 1 capsule (100 mg total) before bedtime. 60 capsule 2 08/19/2021 ActiveStart: 07-04-2021 End: 14-71-1887piwh 1 tablet by mouth every eight hoursgabapentin (NEURONTIN) 600 MG tablet Take 1 tablet by mouth every 8 hours for 21 doses. 21 tablet 0 07/04/2021 07/11/2021 ActiveStart: 06-28-2021 End: 11-38-6587fueg 1 capsule by mouth every eight hoursgabapentin (NEURONTIN) 300 MG capsule Indications: Peripheral arterial disease (HCC) , Gangrene (HCC) Take 1 capsule by mouth every 8 hours for 7 days. 21 capsule 0 07/03/2021 07/04/2021 Discontinued(Stop Taking at Discharge) End: 33-85-3555oopo 2 capsules by mouth three times dailygabapentin (Neurontin) 100 mg capsule Take 2 capsules (200 mg) by mouth 3 times a day. 06/28/2023 Di scontinued (Therapy completed)glucagon (rdna) 1 mg injection (1 source)Antihypoglycemic AgentStart: 43-60-0939zonjfllr (rDNA) injection 1 mg 150 ml glucose 50 mg/ml injection (3 sources)Start: 41-82-9718saxxduw (GLUTOSE) 40 % oral gel 15 gStart: 52-40-5487ycaswdbz 50 % IV solutionStart: 80-07-5081pnxzjdgm 5 % solution ibuprofen 800 mg oral tablet (20 sources)Nonsteroidal Anti-inflammatory DrugStart: 64-78-5826svry 1 tablet by mouth every eight hours as needed for painibuprofen (ADVIL;MOTRIN) 800 MG tablet TAKE 1 TABLET BY MOUTH EVERY 8 HOURS NEEDED FOR PAIN 120 tablet 1 11/03/2024 ActiveStart: 71-58-5943rrmp 1 tablet by mouth every eight hours as needed for painibuprofen (ADVIL,MOTRIN) 600 mg tablet Indications: Post-op pain Take 1 tablet (600 mg total) by mouth every 8 (eight) hours as needed for pain. 30 tablet 07/29/2021 ActiveStart: 06-19-2021 End: 48-22-2221xgaj 1 tablet by mouth every six hours as needed for pain ibuprofen (IBU) 400 MG tablet Take 1 tablet by mouth every 6 hours as needed for Pain 120 tablet 0 06/19/2021 07/03/2021 Discontinued (Stop Taking at Discharge) Start: 90-42-4719Llajruqos 800 MG Oral Tablet as needed Quantity: 0 Refills: 0 Ordered: 20-May-2020 DO Start : 20-May-2020 ActiveStart: 02-49-7974eiawjvjxw 800 mg tablet Take 1 tablet (800 mg) by mouth if needed for moderate pain (4 - 6). 05/20/2020 ActiveComment on above:1 tab 3-5 times dailyinsulin aspart, human 100 unt/ml injectable solution (20 sources)Insulin AnalogStart: 48-97-2469uhmotmn aspart (NOVOLOG) 100 UNIT/ML injection vial DOSING PER INSULIN PUMP. MAX DOSING 37 UNITS PER DAY 10 mL 5 12/17/2023 ActiveStart: 57-53-8775Efrgymd Aspart U-100 (Novolog U-100 Insulin Aspart) 100 unit/mL solution Active SUBCUT September 10, 2023 12:00amStart: 03-18-2023 End: 59-58-9038XpcmHEP U-100 Insulin aspart 100 unit/mL injection 03/18/2023 09/05/2024 Discontinued (Therapy completed)Start: 33-86-6925EFVQUQD 100 UNIT/ML injection vial DOSING PER INSULIN PUMP. MAX DOSING 37 UNITS PER DAY. DX: E10.9 1 0 mL 5 12/27/2022 ActiveStart: 51-40-0412smqbcd 2 [IU] by subcutaneous injection at mealtimeinsulin aspart(NOVOLOG 100 UNIT/ML SUB-Q) SLIDING SCALE. 2UNITS WITH MEALS IF NEEDED 0 05/10/2009 ActiveStart: 96-12-8451erjythz aspart (NOVOLOG) 100 UNIT/ML injection vial Inject into the skin 0 05/10/2009 Activeinsulin aspart U-100 (NovoLOG) 100 unit/mL (3 mL) insulin pen Inject under the skin. ActiveNovoLOG 100 UNIT/ML as directed Subcutaneous per pump ActiveComment on above:SLIDING SCALE. 2UNITS WITH MEALS IF NEEDEDInsulin Disposable Pump (OMNIPOD 5 BMKV4L4 PODS GEN 5) MISC (1 source)Start: 29-94-7491Sekwbrk Disposable Pump (OMNIPOD 5 AFQE8A7 PODS GEN 5) [facility] 11/12/2024 Activeinsulin lispro 100 unt/ml injectable solution (20 sources)Insulin AnalogStart: 56-91-3068KwscMCH U-100 Insulin 100 unit/mL injection DOSING PER INSULIN PUMP. MAX DOSING 37 UNITS PER DAY. 08/21/2024 ActiveStart: 76-59-4615YMBRYFL 100 UNIT/ML SOLN injection vial DOSING PER INSULIN PUMP. MAX DOSING 37 UNITS PER DAY. 10 mL5 08/21/2024 ActiveStart: 40-02-2347gchldfi lispro, 1 Unit Dial, (HUMALOG KWIKPEN) 100 UNIT/ML SOPN Indications: Type 1 diabetes mellitus with diabetic chronic kidney disease, unspecified CKD stage (HCC) Dosing per insulin pump. Max dosing 37 units per day. 10 mL 5 05/29/2024 ActiveStart: 83-86-8787sjerrht lispro, 1 Unit Dial, (HUMALOG KWIKPEN) 100 UNIT/ML SOPN Dosing per insulin pump. Max mepxfj06 units per day. 10 mL 5 01/18/2024 ActiveStart: 07-02-2021 End: 58-51-5207zkrkszs lispro (HUMALOG) injection vial 5 UnitsStart: 06-30-2021 insulin lispro (HUMALOG) injection vial 0-9 UnitsHumaLOG Mix 50/50 SUSP USE DIRECTED. Quantity: 0 Refills: 0 Ordered: 27-Jul-2020 DO ActiveInsulin Lispro 100 UNIT/ML (Prior Auth#:[id number]) Subcutaneous for 30 Not-TakingInsulin Pump Accessories MISC (5 sources)Start: 52-17-1643Oegfzur Pump Accessories MISC Indications: Type 1 diabetes mellitus with diabetic chronic kidney disease, unspecified CKD stage (HCC) 1 each by Does not apply route Daily 1 each 3 05/29/2024 ActiveInsulin Pump Accessories MISC by Does not apply route ActiveInsulin Pump Accessories MISC by Does not apply route 0 ActiveInsulin Pump Cart,Cont Inf,Bt (3 sources)Start: 84-06-2128Vixpdhd Pump Cart,Cont Inf,Bt Active EACH SUBCUT May 25, 2021 1:00am 1:15 carb coverageketoconazole 20 mg/ml medicated shampoo (4 sources)Azole AntifungalStart: 62-10-0188zjynxrhifusf (NIZORAL) 2 % shampoo USE SHAMPOO ONCE DAILY NEEDED 120 mL 1 01/16/2023 Activelevothyroxine sodium 0.05 mg oral tablet (10 sources)l-ThyroxineStart: 05-76-0542dcmh 1 tablet by mouth once daily levothyroxine (SYNTHROID) 50 MCG tablet Indications: Other specified hypothyroidism Take 1 tablet by mouth daily 90 tablet 3 05/29/2024 ActiveStart: 83-20-0767rzip 1 tablet by mouth once dailylevothyroxine (SYNTHROID) 50 MCG tablet TAKE 1 TABLET BY MOUTH EVERY DAY 90 tablet 3 12/26/2023 ActiveStart: 83-76-2358opqc 50 ug by mouth once dailyLevothyroxine Active 50 MCG PO Daily September 10, 2023 12:00amStart: 11-86-5164vjgr 1 tablet by mouth once daily levothyroxine (SYNTHROID) 50 MCG tablet Take 1 tablet by mouth daily 90 tablet 3 11/15/2022 ActiveLevothyroxine Sodium Activelisdexamfetamine dimesylate 60 mg oral capsule (7 sources)Central Nervous System StimulantStart: 00-34-0429zetn 1 capsule by mouth once daily in the morningLisdexamfetamine Dimesylate 60 MG CAPS Take 1 capsule by mouth every morning. 11/16/2024 ActiveStart: 77-75-9989ebdn 1 capsule by mouth once dailyLisdexamfetamine (Vyvanse) 50 mg capsule Active 50 MG PO Daily September 10, 2023 12:00amLORazepam 0.5 mg oral tablet (19 sources)BenzodiazepineStart: 30-20-8745saai 0.5 mg by mouth twice daily Lorazepam Active 0.5 MG PO Twice daily September 10, 2023 12:00amStart: 08-09-2021 take 1 tablet by mouth once dailyLORazepam (ATIVAN) 0.5 mg tablet Take 1 tablet (0.5 mg total) by mouth nightly. 08/09/2021 Activelosartan potassium 100 mg oral tablet (20 sources)Angiotensin 2 Receptor BlockerStart: 01-28-2019 End: 81-43-6178kzfu 1 tablet by mouth in the morninglosartan (COZAAR) 100 mg tablet Take 1 tablet (100 mg total) by mouth in the morning. 06/24/2021 Active meloxicam 15 mg oral tablet (16 sources)Nonsteroidal Anti-inflammatory DrugStart: 77-03-2405nsbb 1 tablet by mouth in the morningmeloxicam (MOBIC) 15 mg tablet Take 1 tablet (15 mg total) by mouth in the morning. 06/29/2021 ActiveStart: 05-25-2021 End: 11-04-2152wnvg 15 mg by mouth once dailyMeloxicam Discontinued 15 MG PO Daily May 25, 2021 1:00am June 15, 2021 6:33pmmethocarbamol 750 mg oral tablet (2 sources)Muscle RelaxantStart: 07-04-2021 End: 96-27-0813cmtz 1 tablet by mouth every six hoursmethocarbamol (ROBAXIN) 750 MG tablet Take 1 tablet by mouth every 6 hours for 10 days 40 tablet 0 0 07/04/2021 07/14/2021 ActivemethylPREDNISolone 4 mg oral tablet (5 sources)CorticosteroidStart: 27-27-2653brrektLJQXROQcjzfl (MEDROL DOSEPACK) 4 MG tablet Take by mouth. 1 kit 12/01/2024 ActiveStart: 01-02-2024 methylPREDNISolone (MEDROL DOSEPACK) 4 MG tablet Take by mouth. 1 kit 01/02/2024 ActiveStart: 81-66-7013xayfezPKSFNVGivxem (MEDROL DOSEPACK) 4 MG tablet Take by mouth. 1 kit 0 12/27/2022 Activemetoprolol tartrate 25 mg oral tablet (20 sources)beta-Adrenergic BlockerStart: 64-48-3854mntj 0.5 tablet by mouth twice dailymetoprolol tartrate (LOPRESSOR) 25 MG tablet Take 0.5 tablets by mouth 2 times daily 180 tablet 1 05/29/2024 ActiveStart: 12-31-2023 End: 60-16-5289binp 1 tablet by mouth once dailymetoprolol tartrate (Lopressor) 25 mg tablet Indications: Essential (primary) hypertension Take 1 tablet (25 mg) by mouth once daily. 90 tablet 3 09/05/2024 ActiveStart: 41-12-3089mymg 1 tablet by mouth once dailyMetoprolol Tartrate 25 MG Oral Tablet TAKE 1 TABLET DAILY. Quantity: 90 Refills: 3 Ordered: 12-Sep-2022 Rj Rollins MD Start : 17-Jun-2019 ActiveStart: 95-83-0969jjvc 12.5 mg by mouth twice dailyMetoprolol Tartrate Active 12.5 MG PO Twice daily January 28, 2019 1:00amtake 1 tablet by mouth once dailymetoprolol succinate XL (TOPROL XL) 25 mg 24 hr tablet Take by mouth daily. Activemetoprolol tartrate (LOPRESSOR) 25 mg tablet Take 12.5 mg by mouth. Activemometasone furoate 0.001 mg/mg topical ointment (3 sources)CorticosteroidStart: 88-99-5075mvwwltlvdi (ELOCON) 0.1 % ointment Apply to affected area once daily. 45 g 1 05/10/2022 ActiveComment on above: Apply to affected area once daily.moxifloxacin 5 mg/ml ophthalmic solution (1 source)Quinolone AntimicrobialStart: 16-39-9544xhqwhymylkkv (VIGAMOX) 0.5 % ophthalmic solution 07/01/2024 Activemupirocin 0.02 mg/mg topical ointment (5 sources)RNA Synthetase Inhibitor AntibacterialStart: 48-88-7762tklipooxd (BACTROBAN) 2 % ointment by Nasal route 09/14/2021 ActiveStart: 09-14-2021 Mupirocin 2 % 1 application nasally Twice a day Aug, Activenaloxone hydrochloride 40 mg/ml nasal spray (5 sources)Opioid AntagonistStart: 55-28-7960olszvwsm (NARCAN) 4 mg/actuation spray,non-aerosol nasal spray Administer 1 spray (4 mg total) intoalternating nostrils as needed for opioid reversal. 1 each 07/20/2021 Activenaloxone (NARCAN) 4 mg/actuation spray,non-aerosol nasal spray (8 sources)Start: 72-12-3844ruzbjgza (NARCAN) 4 mg/actuation spray,non-aerosol nasal spray Administer 1 spray (4 mg total) intoalternating nostrils as needed for opioid reversal. 1 each 07/20/2021 Activenaproxen 500 mg oral tablet (16 sources)Nonsteroidal Anti-inflammatory DrugStart: 05-25-2021 End: 24-02-1315qkzf 1 tablet by mouth in the morningnaproxen (NAPROSYN) 500 mg tablet Take 500 mg by mouth in the morning and 500 mg before bedtime. 06/08/2021 ActiveNIFEdipine 30 mg osmotic 24 hr extended release oral tablet (15 sources)Dihydropyridine Calcium Channel BlockerStart: 75-99-0439dyrf 1 tablet by mouth every twenty-four hours in the morningNIFEdipine XL (PROCARDIA XL) 30 mg 24 hr tablet Take 1 tablet (30 mg total) by mouth in the morning. 07/29/2021 ActiveStart: 65-59-5823juvv 1 tablet by mouth once dailyNIFEdipine (PROCARDIA XL) 30 MG extended release tablet Take 1 tablet by mouth daily 30 tablet 3 07/03/2021 Activenitrofurantoin, macrocrystals 25 mg / nitrofurantoin, monohydrate 75 mg oral capsule (1 source)Nitrofuran AntibacterialStart: 22-49-1286njpv 1 capsule by mouth every twelve hoursMacrobid 100 MG 1 cap(s) Orally 2 times a day for 5 day(s) Aug, Activenitroglycerin 0.02 mg/mg topical ointment (18 sources)Nitrate VasodilatorStart: 37-81-0457zckhprmbuwurf (NITRO-BID) 2 % ointment Place 0.5 inches on the skin. 07/03/2021 ActiveStart: .5 inch, Topical, EVERY 6 HOURS SCHEDULED (4 times per day), First dose on Sun06/28/21 at 1800, Until Discontinued Apply to left great toeStart: 01-28-2019 End: 38-31-3259Anhbnqacsngmj Discontinued 0.4 MG SUBLINGUAL every 5 to 15 minutes January 28, 2019 1:00am 2021 10:35amnystatin 170059 unt/ml oral suspension (3 sources)Polyene AntifungalStart: 06-50-1404ooelkkcp (MYCOSTATIN) 545294 UNIT/ML suspension Nystatin Active 5 ML PO Four times daily 200 September 10, 2023 12:00am swish and swallow 09/10/2023 ActiveStart: 28-71-0661bcng 1 mL by mouth four times dailyNystatin Active 5 ML PO Four times daily 200 September 10, 2023 12:00am swish and swallowofloxacin 3 mg/ml ophthalmic solution (2 sources)Quinolone AntimicrobialStart: 39-36-7586ymgg 1 drop(s) into the eye(s) four times dailyofloxacin (OCUFLOX) 0.3 % ophthalmic solution INSTILL 1 DROP INTO RIGHT EYE 4 TIMES A DAY BEGIN AFTER 1ST POST-OP EXAM 04/18/2024 Active ondansetron 4 mg oral tablet (20 sources)Serotonin-3 Receptor AntagonistStart: 26-75-0062avgt 1 tablet by mouth once daily as needed for nausea and vomitingondansetron (ZOFRAN) 4 mg tablet TAKE 1 TABLET ORALLY DAILY NEEDED FOR NAUSEA AND VOMITING FOR 3DAYS 09/03/2024 ActiveStart: 17-51-5715pdlyfidmjzb (ZOFRAN-ODT) 4 MG disintegrating tablet DISSOLVE 1 TABLET ON THE TONGUE TWICE DAILY NEEDED FOR NAUSEA AND VOMITING 08/20/2022 ActiveStart: 75-47-6175Szgrfjfolsr 4 MG Oral Tablet Disintegrating as directed Quantity: 0 Refills: 0 Ordered: 87-Vax-3338NV Start : 27-May-2020 Activeondansetron ODT (ZOFRAN ODT) 4 mg disintegrating tablet Dissolve on tongue every 12 (twelve) hours.Activeondansetron (ZOFRAN-ODT) disintegrating tablet 4 mg (1 source)Start: 58-18-4965yahlxyygmmm (ZOFRAN-ODT) disintegrating tablet 4 mg abuse-deterrent 12 hr oxyCODONE hydrochloride 20 mg extended release oral tablet (13 sources)Opioid AgonistStart: 07-04-2021 End: 81-49-5063pnyk 1 tablet by mouth every twelve hoursoxyCODONE (OXYCONTIN) 20 MG extended release tablet Indications: Peripheral arterial disease (HCC) , Gangrene (HCC) Take 1 tablet by mouth every 12 hours for 6 doses. 6 each 0 07/04/2021 07/07/2021 ActiveStart: 06-28-2021 End: 36-85-7594luon 1 tablet by mouth every four hours as needed for pain oxyCODONE (ROXICODONE) 5 MG immediate release tablet Indications: Peripheral arterial disease (HCC), Gangrene (HCC) Take 1 tablet by mouth every 4 hours as needed for Pain for up to 10 doses. 10 tablet 0 07/03/2021 07/07/2021 Active Start: 05-26-2021 End: 90-04-6961dnpy 10 mg by mouth every four hoursOxycodone Discontinued 10 MG PO Every 4 hours 40 June 18, 2021 September 10, 2023 4:49pmtake 1 capsule by mouth at bedtimeoxyCODONE HCl - 5 MG Oral Capsule TAKE 1 CAPSULE Bedtime Quantity: 0 Refills: 0 Ordered: 29-Nov-2021 DO Activepantoprazole 40 mg delayed release oral tablet (4 sources)Proton Pump InhibitorStart: 48-63-5828rgpl 1 tablet by mouth once dailypantoprazole (PROTONIX) 40 MG tablet Indications: Esophageal dysphagia , Gastroesophageal reflux disease, unspecified whether esophagitis present TAKE 1 TABLET BY MOUTH EVERY DAY 90 tablet 1 06/26/2024 ActiveStart: 22-41-2139jkbq 1 tablet by mouth once dailypantoprazole (PROTONIX) 40 MG tablet Indications: Esophageal dysphagia , Gastroesophageal reflux disease, unspecified whether esophagitis present Take 1 tablet by mouth daily 30 tablet 3 01/03/2024 Active phenazopyridine hydrochloride 200 mg oral tablet (1 source)Start: 30-36-0621ryli 1 tablet by mouth every eight hoursPyridium 200 MG 1 tablet after meals Orally Three times a day for 2 day(s) Aug, Activepravastatin sodium 10 mg oral tablet (16 sources)HMG-CoA Reductase InhibitorStart: 64-60-0079apfd 1 tablet by mouth in the morningpravastatin (PRAVACHOL) 10 mg tablet Take 10 mg by mouth in the morning. 06/24/2021 ActiveStart: 46-34-8649begqonlxeyk sodium(PRAVACHOL 20 MG TAB) Take one(1) tablet daily at bedtime. 0 05/10/2009 ActiveComment on above: Take one(1) tablet daily at bedtime.prednisoLONE acetate 10 mg/ml ophthalmic suspension (1 source)CorticosteroidStart: 37-56-8525phjrhnjoTSUY acetate (PRED FORTE) 1 % ophthalmic suspension PLACE 1 DROP INTO RIGHT EYE 4 TIMES A DAY *BEGIN AFTER FIRST POST-OP EXAM* 04/18/2024 ActivepredniSONE 20 mg oral tablet (1 source)Start: 09-44-4532fcfk 1 tablet by mouth every twelve hoursprednisone 20 MG 1 tablet Orally BID for 5 Apr, Activeprogesterone 200 mg oral capsule (11 sources)ProgesteroneStart: 94-11-7738xknbfnxtvjbd (PROMETRIUM) 200 mg capsule Take 1 capsule (200 mg total) by mouth. 08/25/2024 ActiveStart: 35-20-9519qykz 1 capsule by mouth once dailyprogesterone (PROMETRIUM) 200 MG CAPS capsule Indications: Hormone imbalance TAKE 1 CAPSULE BY MOUTH EVERY NIGHT 90 capsule 05/17/2023 ActiveProgesterone 200 MG (Prior Auth#:[id number]) Oral for 90 Not-Takingrivaroxaban 2.5 mg oral tablet (13 sources)Factor Xa InhibitorStart: 77-44-2704kdkx 1 tablet by mouth in the morning, then take 1 tablet by mouth at bedtimerivaroxaban (XARELTO) 2.5 mg tablet Indications: Peripheral arterial disease Take 1 tablet (2.5 mg total) by mouth in the morning and 1 tablet (2.5 mg total) before bedtime. 60 tablet 5 09/30/2024 ActiveStart: 06-18-2021 End: 33-37-4489cluvbslefab (XARELTO) 2.5 MG TABS tablet Take by mouth 06/18/2021 ActiveStart: 95-07-2586pkxl 1 tablet by mouth once daily at dinnerRivaroxaban (Xarelto) 15 mg tablet Active 15 MG PO Daily June 18, 2021 12:00am must administerwith evening mealrosuvastatin calcium 40 mg oral tablet (13 sources)HMG-CoA Reductase InhibitorStart: 87-30-7555nqgc 1 tablet by mouth in the morningrosuvastatin (CRESTOR) 40 mg tablet Take 1 tablet (40 mg total) by mouth in the morning. 11/12/20216290Ahkrhf3546 ml sodium chloride 9 mg/ml injection (10 sources)Start: 09-11-1218YgzjlFXOmig, at 75 mL/hr, CONTINUOUS, Starting on Sun02/22/24 at 1115, Pre-procedure(GI)Start: -40 mL, IntraVENous, EVERY 12 HOURS SCHEDULED (2 times per day), First dose on Sun02/22/24 at 1115, Until Discontinued, For Line Patency: Peripheral IV = 5 mL; Midline or Central Line = 10 mL/lumen.If following IV push medication, administer flush at same rate as the IV push. Flush volume is determined by type of infusion therapy being given. For non-viscous solutions use: Peripheral IV = 5 mL Midline or Central Line = 10 mL/lumen For viscous solutions (i.e. blood components, parenteral nutrition, contrast media, or after obtaining blood sample) use: Peripheral IV = 10 mL Midline or CentralLine = 20 mL/lumen, Pre-procedure(GI) Start: -40 mL, IntraVENous, PRN, Starting on Sun02/22/24 at 1055, Until Discontinued, Line Care, After every IV line use, For Line Patency: Peripheral IV = 5 mL; Midline or Central Line = 10 mL/lumen. If following IV push medication, administer flush at same rate as the IV push. Flush volume is determined by type of infusion therapy being given. For non-viscous solutions use: Peripheral IV = 5 mL Midline or Central Line = 10 mL/lumen For viscous solutions (i.e. blood components, parenteral nutrition,contrast media, or after obtaining blood sample) use: Peripheral IV = 10 mL Midline or Central Line= 20 mL/lumen, Pre-procedure(GI)Start: .9 % sodium chloride infusionStart: 34-70-9792gwodpp chloride flush 0.9 % injection 5-40 mLStart: 61-67-7512pkae 1 dose intravenously twice daily5-40 mL, IntraVENous, EVERY 12 HOURS SCHEDULED (2 times per day), First dose on Sun06/27/21 at 2100, Until Discontinued For Line Patency: Peripheral IV = 5 mL; Midline or Central Line = 10 mL/lumen.&a mp;nbsp; If following IV push medication, administer flush at same rate as the IV push. Flush volume is determined by type of infusion therapy being given. For non-viscoussolutions use: Peripheral IV = 5 mL Midline or Central Line = 10 mL/lumen For viscous solutions (i.e. blood components, parenteral nutrition, contrast media, or after obtaining blood sample) use: Peripheral IV = 10 mL Midline or Central Line = 20 mL/lumenStart: 86-34-3491YzhmmGOGrdj, at 5-250 mL/hr, PRN, if patient receiving piggyback infusions and maintenance fluids are not ordered OR KVO fluids to protect IV site / prevent frequent line interruptions/ long duration, Starting on Sun06/27/21 at 1549 For piggyback infusion, administer at same rate as piggyback for atotal of 25 mL. Enter 25 mL into dose field and piggyback rate into rate field of order. If piggyback is infusing at a rate less than 100 mL/hr, enter 25 mL into dose field and 100 mL/hr into rate field of order. For KVO fluids, enter rate of 20 mL/hr or less into rate field of order.Start: 50-02-2941bwvs 5-40 mL intravenously once as needed5-40 mL, IntraVENous, PRN, Starting on Sun06/27/21 at 1549, Until Discontinued, Line Care, After every IV line use For Line Patency: Peripheral IV = 5 mL; Midline or Central Line = 10 mL/lumen. If following IV push medication, administer flush at same rate as the IV push. Flush volume is determined by type of infusion therapy being given. For non-viscous solutions use: Peripheral IV = 5 mL Midline or Central Line = 10 mL/lumen For viscous solutions (i.e. blood components, parenteral nutrition, contrast media, or after obtaining blood sample) use: Peripheral IV = 10 mL Midline or Central Line = 20 mL/lumen sulfamethoxazole 800 mg / trimethoprim 160 mg oral tablet (15 sources)Dihydrofolate Reductase Inhibitor Antibacterial, Sulfonamide AntimicrobialStart: 69-69-8036hewe 1 tablet by mouth every twelve hours Sulfamethoxazole-Trimethoprim Active 1 TAB PO Every 12 hours 10 September 10, 2023 12:00amStart: 74-35-5166mlhk 1 tablet by mouth once in the morning sulfamethoxazole-trimethoprim (BACTRIM DS) 800-160 mg per tablet Take 1 tablet by mouth in the morning and 1 tablet before bedtime. 06/27/2021 Active terbinafine 250 mg oral tablet (7 sources)Allylamine AntifungalStart: 78-88-0230wkxl 1 tablet by mouth once dailyterbinafine (LAMISIL) 250 MG tablet Take 1 tablet by mouth daily 90 tablet 1 11/15/2022 ActiveTerbinafine HCl 250 MG (Prior Auth#:[id number]) Oral for 14 Not-TakingTretinoin (2 sources)RetinoidStart: 55-96-0849Iyytgwqml Active APPLIC TOPICAL September 10, 2023 12:00amtriamcinolone acetonide 1 mg/ml topical cream (3 sources)CorticosteroidStart: 92-90-4363cnhijrnoifwbr (KENALOG) 0.1 % cream Triamcinolone Acetonide Active APPLIC TOPICAL September 10, 2023 12:00am 09/10/2023 ActiveStart: 62-87-7496Ymrbcqpehkjkt Acetonide Active APPLIC TOPICAL September 10, 2023 12:00amvalACYclovir 1000 mg oral tablet (7 sources)Herpesvirus Nucleoside Analog DNA Polymerase Inhibitor, Herpes Simplex Virus Nucleoside Analog DNA Polymerase Inhibitor, Herpes Zoster Virus Nucleoside Analog DNA Polymerase InhibitorStart: 95-29-8564txav 1 tablet by mouth three times dailyvalACYclovir (VALTREX) 1 g tablet TAKE 1 TABLET BY MOUTH THREE TIMES A DAY FOR 30 DAYS 10/23/2024 ActiveStart: 20-00-8713qqjMFVgitudt (VALTREX) 1000 mg tablet Take 1 tablet (1,000 mg total) by mouth. 09/25/2024 ActiveStart: 20-96-7115axlr 500 mg by mouth once dailyValacyclovir Active 500 MG PO Daily September 10, 2023 12:00amStart: 73-77-6010tbcZKZurtozt HCl - 1 GM Oral Tablet as directed prn Quantity: 0 Refills: 0 Ordered: 05-Apr-2020 DO Start : 05-Apr-2020 Activevalsartan 80 mg oral tablet (4 sources)Angiotensin 2 Receptor BlockerStart: 60-19-1424vgohombkc (DIOVAN) 80 mg tablet Take 1 tablet (80 mg total) by mouth. 04/18/2024 ActiveStart: 79-91-2048qtgb 1 tablet by mouth once dailyvalsartan (DIOVAN) 80 MG tablet Indications: Primary hypertension Take 1 tablet by mouth daily 90 tablet 1 11/06/2023 Activevarenicline 0.5 mg oral tablet (16 sources)Partial Cholinergic Nicotinic Agonisttake 1 tablet by mouth in the morning, then take 1 tablet by mouth at bedtimevarenicline (CHANTIX) 0.5 mg tablet Take 1 tablet (0.5 mg total) by mouth in the morning and 1 tablet (0.5 mg total) before bedtime. ActiveComment on above:Take 0.5 mg by mouth twice daily. Completed/Discontinued Medications MedicationDrug Class(es)DatesSig (Normalized)Sig (Original)ALPRAZolam 0.25 mg oral tablet (2 sources)BenzodiazepineStart: 07-01-2021 End: 72-05-1903LHEENYotlv (XANAX) tablet 0.25 mg24 hr buPROPion hydrochloride 150 mg extended release oral tablet (20 sources)AminoketoneStart: 05-25-2021 End: 22-52-2030bnwk 150 mg by mouth once dailyBupropion Hcl Discontinued 150 MG PO Daily May 25, 2021 1:00am September 10, 2023 4:54pmtake 1 tablet by mouth every twenty-four hoursbuPROPion XL (WELLBUTRIN XL) 150 mg 24 hr tablet Take 1 tablet (150 mg total) by mouth. Activetake 1 tablet by mouth every twelve hours in the morningbuPROPion SR (Wellbutrin SR) 200 MG 12 hr tablet Take 1 tablet by mouth in the morning and 1 tabletbefore bedtime. 0 Activecalcium chloride 0.0014 meq/ml / potassium chloride 0.004 meq/ml / sodium chloride 0.103 meq/ml / so dium lactate 0.028 meq/ml injectable solution (1 source)Start: 06-28-2021 End: 61-29-7082smbuoaki ringers bolus1 ml heparin sodium, porcine 1000 unt/ml injection (2 sources)Unfractionated Heparin, Anti-coagulantStart: 06-27-2021 End: 91-88-6810dzxjvrk (porcine) injection 3,920 UnitsStart: 06-27-2021 End: 44-25-8708vqpdyap (porcine) injection 1,960 Unitsheparin 25,000 units in 0.9% sodium chloride 250 mL infusion (1 source)Start: 06-27-2021 End: 68-92-5256uvoofcn 25,000 units in 0.9% sodium chloride 250 mL infusion1 ml HYDROmorphone hydrochloride 1 mg/ml cartridge (6 sources)Opioid AgonistStart: 07-04-2021 End: 42-76-9401KXNKPvczznole (DILAUDID) injection 1 mgStart: 07-03-2021 End: 21-33-5821GNGAItwepaqjj (DILAUDID) injection 0.25 mgStart: 07-01-2021 End: 45-35-6986KPFFHqbrkojef (DILAUDID) injection 0.5 mgStart: 06-28-2021 End: 74-06-7690CCKUJpdvyfhvn (DILAUDID) injection 0.5 mgStart: 06-28-2021 End: 53-14-7918HTVVObbqkuaij (DILAUDID) injection 0.5 mgHYDROmorphone (DILAUDID) 200 mcg/mL GLOBAL CEO (1 source)Start: 06-28-2021 End: 88-34-7522HDIVQmyrflmey (DILAUDID) 200 mcg/mL PCAInsulin Aspart U-100 (Novolog U-100 Insulin Aspart) 100 unit/mL Solution (3 sources)Start: 01-28-2019 End: 13-80-0727Uadvyyx Aspart U-100 (Novolog U-100 Insulin Aspart) 100 unit/mL Solution Discontinued 1 sliding scale dose SUBCUT Use as Directed January 28, 2019 1:00am May 25, 2021 10:36aminsulin detemir 100 unt/ml injectable solution (3 sources)Insulin AnalogStart: 01-28-2019 End: 38-62-6576bsfekb 10 [IU] by subcutaneous injection once daily in the eveningInsulin Detemir U-100 (Levemir U-100 Insulin) 100 unit/mL Solution Discontinued 10 UNIT SUBCUT Every evening January 28, 2019 1:00am May 25, 2021 10:35aminsulin glargine 100 unt/ml injectable solution (2 sources)Insulin AnalogStart: 07-02-2021 End: 16-23-1124jggmwqg glargine (LANTUS) injection vial 15 UnitsStart: 07-01-2021 End: 25-49-7415kiaggfa glargine (LANTUS) injection vial 15 Unitsiopamidol (ISOVUE-370) 76 % injection 125 mL (1 source)Start: 06-27-2021 End: 23-67-6395tqqsqjhrg (ISOVUE-370) 76 % injection 125 mL1 ml morphine sulfate 4 mg/ml cartridge (1 source)Opioid AgonistStart: 06-27-2021 End: 66-24-1487kmtfzaaq injection 4 mgpolyethylene glycol 3350 69430 mg powder for oral solution (1 source)Osmotic LaxativeStart: 93-49-008634 g, Oral, DAILY PRN, Starting on Sun06/27/21 at 1549, Until Discontinued, Constipation First linetherapy for tjzpjoimqgbb83 hr scopolamine 0.0139 mg/hr transdermal system (1 source)AnticholinergicStart: 06-28-2021 End: 69-13-3638tugrlsncuqq (TRANSDERM-SCOP) transdermal patch 1 patch Problems Active Problems Problem ClassificationProblemDateDocumented DateEpisodic/ChronicAnxiety disorders (2 sources)Claustrophobia; Translations: [Claustrophobia]Onset: 08-28-2022 26-48-1812BwdhcusVztvry and peripheral arterial embolism or thrombosis (4 sources)Thromboembolic disorder; Translations: [Embolism and thrombosis of unspecified artery]Onset: 06-08-2021 Resolved: 89-71-0824IvsguucRrsrkuyoaees of device; implant or graft (4 sources)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; Translations: [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, left leg]Onset: ChronicCoronary atherosclerosis and other heart disease (1 source)Atherosclerotic heart disease of [place] coronary artery without angina pectoris; Translations: [Athscl heart disease of [place] coronary artery w/o ang pctrs]Onset: 55-08-1367TawvtdlSddmoptm mellitus with complications (5 sources)Insulin treated type 2 diabetes mellitus; Translations: [Type 2 diabetes mellitus with other circulatory complications]Onset: 03-22-2023 68-01-6149MbsykklYnpftmkp mellitus without complication (20 sources)Type 1 diabetes mellitus; Translations: [Type 1 diabetes mellitus without complications]Onset: 96-07-3725WwqrfipWqganuqa mellitus without complication (3 sources)Insulin pump present; Translations: [Presence of insulin pump (external) (internal)]68-71-7741YrnzbvclIvwshcwlw of lipid metabolism (17 sources)Hyperlipidemia; Translations: [Other and unspecified hyperlipidemia] Onset: 151889-54-4747LygjzggMrmxsryty of teeth and jaw (1 source)Temporomandibular joint disorder; Translations: [Unspecified temporomandibular joint disorder, unspecified side]EpisodicEsophageal disorders (6 sources)Gastroesophageal reflux disease; Translations: [Gastro-esophageal reflux disease without esophagitis]Onset: 236433-37-9640FvljstkQhpidsraf hypertension (20 sources)Essential hypertension; Translations: [Essential (primary) hypertension]Onset: 09-55-1570RmesbjbJrpllrgv (1 source)Atherosclerosis of [place] arteries of extremities with gangrene, left leg; Translations: [ATHSC NATV ART EXT W/GANGREN LT LEG]Onset: 34-18-4410Csbfqpk Immunizations and screening for infectious disease (2 sources)Contact with and (suspected) exposure to other viral communicable diseases; Translations: [Contact with and (suspected) exposure to other viral communicable diseases]EpisodicMood disorders (1 source)Moderate major depression ; Translations: [Major depressive disorder, single episode, moderate]Onset: 311280-29-4445NgxvkegNvkgrhz (2 sources)Candidiasis of mouth; Translations: [Candidal stomatitis]09-10-2023 EpisodicOcclusion or stenosis of precerebral arteries (2 sources)Bilateral stenosis of carotid arteries; Translations: [Occlusion and stenosis of bilateral carotid arteries]Onset: 426968-96-6270PlryizeDpuzv aftercare (2 sources)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; Translations: [intermediate (current) use of insulin (Multi)]Onset: 92-61-4706XnxkhhobOlnoc circulatory disease (1 source)Stricture of artery; Translations: [STRICTURE OF ARTERY]Onset: 28-26-9377AxjkvakOhenu circulatory disease (3 sources)Lower limb ischemia; Translations: [Other disorder of circulatory system]38-18-9921PmibngybTfyzk connective tissue disease (3 sources)Pain in left foot; Translations: [PAIN IN LEFT FOOT]Onset: 06-15-2021 EpisodicOther ear and sense organ disorders (1 source)Chronic eczema of external auditory canal; Translations: [Other otitis externa, bilateral]ChronicOther ear and sense organ disorders (1 source)Bilateral referred otalgia of ears; Translations: [Otalgia, bilateral] EpisodicOther endocrine disorders (7 sources)Disorder of pituitary gland; Translations: [PITUITARY DISORDER NEC] ChronicOther eye disorders (1 source)Other specified disorders of eye and adnexaEpisodicOther female genital disorders (13 sources)Dyspareunia; Translations: [Dyspareunia]Onset: 128291-90-1067 ChronicOther nervous system disorders (2 sources)Polyneuropathy; Translations: [Polyneuropathy, unspecified]Onset: 060897-66-1382NxtfhqsNlhzq nervous system disorders (4 sources)Impaired cognition; Translations: [Other symptoms and signs involving cognitive functions and awareness]Onset: 220108-02-1482QrzuyymrAbrtg nutritional; endocrine; and metabolic disorders (3 sources)Body mass index less than 20; Translations: [Body mass index (BMI) 19.9 or less, adult]EpisodicOther screening for suspected conditions (not mental disorders or infectious disease) (2 sources)Other specified abnormal findings of blood chemistry; Translations: [Patient encounter status]Onset: 506818-63-1428VcnvhuqlXoeir upper respiratory disease (1 source)Allergic disposition; Translations: [Other allergic rhinitis]Chronic Other upper respiratory infections (2 sources)Acute sinusitis, unspecified; Translations: [Acute maxillary sinusitis, unspecified]Onset: 09-14-2021 Resolved: 66-39-0510YkoepmdyUczmhvwpaf and visceral atherosclerosis (20 sources)Peripheral vascular disease, unspecified; Translations: [Peripheral vascular disease, unspecified]Onset: 04-18-2021 Resolved: 79-91-7516NgssbjjAultjcna codes; unclassified (6 sources)Body mass index 20-24 - normal; Translations: [Body Mass Index between 19-24, adult]Onset: 590876-15-2354GnwnvufwZdkweyshy and history of mental health and substance abuse codes (1 source)Tobacco use and exposure - jinwkhr03-34-0156TgyqqpoWdissqmav and history of mental health and substance abuse codes (16 sources)Personal history of nicotine dependence; Translations: [Ex-smoker] Onset: 410252-45-4806DbxpzavpTnugtrt on above:QUIT SMOKING 2020;Syncope (2 sources)Syncope; Translations: [Syncope and collapse]14-79-9763Vjraxtgi Unclassified (2 sources)Athscl heart disease of [place] coronary artery w/o ang pctrs / I25.10(ICD-9)Onset: 55-59-6548Bhnaxasoyraw (1 source)Chest pain, unspecified / R07.9(ICD-9)Onset: 42-03-6718Jaxkidcwgnrl (1 source)Shortness of breath / R06.02(ICD-9)Onset: 70-77-0230Qcfcwkrtdoie (1 source)CONTACT W/AND (SUSP) EXPOS COVID-19; Translations: [CONTACT W/AND (SUSP) EXPOS COVID-19]Onset: 29-13-7786Yzizqnpokkyo (3 sources)LOW BACK PAIN, UNSPECIFIED; Translations: [LOW BACK PAIN, UNSPECIFIED]Onset: 43-67-9340Cluzzhw tract infections (3 sources)Urinary tract infection, site not specified; Translations: [Acute urinary tract infection]Onset: 09-14-2021 Resolved: 70-24-5511Fnxoszbj Past or Other Problems Problem ClassificationProblemDateDocumented DateEpisodic/ChronicGangrene (20 sources)Gangrenous disorder; Translations: [Gangrene, not elsewhere classified]Onset: 73-89-3367JjihxynmPatxfhxeqtinp symptoms and ill-defined conditions (16 sources)Dysuria; Translations: [Hematuria, unspecified]Onset: 07-14-2021 Resolved: 34-25-4021VylasqreBwmvvzepfgz deficiencies (2 sources)Cobalamin deficiency; Translations: [Deficiency of other specified B group vitamins]Onset: 252140-73-0196NtvhlwvsWfzuy and unspecified benign neoplasm (3 sources)Pituitary adenoma; Translations: [Benign neoplasm of pituitary gland] Onset: 981858-09-4629WqpgfiioWadic circulatory disease (2 sources)Limb jemfqfes02-02-4072CtutrjpgClsdw connective tissue disease (7 sources)Fibromyalgia; Translations: [Myalgia and myositis, unspecified]Onset: 005313-10-9011MiwihujvTvfak connective tissue disease (2 sources)Neurogenic pain; Translations: [Neuralgia and neuritis, unspecified] Onset: 943672-08-5435GtzrzxaqLjpmi gastrointestinal disorders (4 sources)Esophageal dysphagia; Translations: [Other dysphagia]Onset: 610208-79-3745ZhlwlafiImxur gastrointestinal disorders (2 sources)Other dysphagia; Translations: [Other dysphagia]Onset: 02-22-2024 EpisodicOther lower respiratory disease (20 sources)Multiple nodules of lung; Translations: [Lung nodules]Onset: 297720-44-7499LwkpahadSvrrq nervous system disorders (1 source)Drug-induced myopathy; Translations: [Toxic myopathy]Onset: 08-21-2024 31-83-7460ZoitsybcPhclrwdb codes; unclassified (12 sources)Other specified health status; Translations: [Statin intolerance] Onset: 622757-26-3393LtesmneeIzgrasvc codes; unclassified (4 sources)Other specified postprocedural states; Translations: [Other specified postprocedural states]Onset: 53-15-3835QenfbvunKxvuufvj codes; unclassified (2 sources)Body mass index (BMI) 21.0-21.9, adult; Translations: [Body mass index (BMI) 21.0-21.9, adult]Onset: 89-99-8025SdaccwyuNxqsyoovqalv (1 source)LOW BACK PAIN, UNSPECIFIED; Translations: [LOW BACK PAIN, UNSPECIFIED] Onset: 67-71-0897Vlrervaslufy (1 source)Acute cough R05.1Unclassified (1 source)Onset: 697223-43-3487 Results Test NameValueInterpretationReference RangeFacilityCT Chest for screeningon . There is no pulmonary infiltrate or pulmonary mass 2. Emphysematous changes 3. Stable 6 mm smooth bordered nodule seen within the right middle lobe abutting the right major fissure best appreciated on sagittal image number 119 LUNG RADS: Lung-RADS 2 - Benign (v2022) Management: 12 month screening LDCT [facility] RAD[facility]: LOW DOSE SCREENING CT OF THE CHEST [...] Age: Patient is 58 y.o. Smoking History: Tobacco Use Smoking status: Former Packs/day: 0.00 [...] The thoracic aorta is normal in caliber. There is no pericardial effusion. No mediastinal or hilar pathological lymphadenopathy is identified. There is todj-gt-kplokeai calcified plaque within the coronary arteries. Lungs/Pleura: There are emphysematous changes. There is no pulmonary infiltrate, mass or suspicious pulmonary nodule. There is a stable smooth bordered 6 mm nodule abutting the right major fissure tucked within the superior aspect of the right middle lobe. This may represent a benign Keira fissural lymph node which is stable. There is no pleural thickening or pleural effusion. Upper Abdomen: Limited images of the upper abdomen demonstrate no acute abnormality. Soft Tissues/Bones: Age related degenerative changes of the visualized osseous structures without focal destructive lesion. [facility] RADIOLOGYCT Chest for screeningOrdered By: Marek Swartz on 01-06-2025 [facility] [employer] Work Phone: CT Chest for screeningon 68-65-8098Awoqcyzhv Study observation (narrative)[facility] LUNG SCREENING (INITIAL/ANNUAL)on 20-01-6299MR LUNG SCREENING (INITIAL/ANNUAL)EXAMINATION: LOW DOSE SCREENING CT OF THE CHEST [...] Age: Patient is 58 y.o. Smoking History: Tobacco Use Smoking status: Former Packs/day: 0.00 [...] The thoracic aorta is normal in caliber. There is no pericardial effusion. No mediastinal or hilar pathological lymphadenopathy is identified. There is ujur-sk-jexpygkl calcified plaque within the coronary arteries. Lungs/Pleura: There are emphysematous changes. There is no pulmonary infiltrate, mass or suspicious pulmonary nodule. There is a stable smooth bordered 6 mm nodule abutting the right major fissure tucked within the superior aspect of the right middle lobe. This may represent a benign Keira fissural lymph node which is stable. There is no pleural thickening or pleural effusion. Upper Abdomen: Limited images of the upper abdomen demonstrate no acute abnormality. Soft Tissues/Bones: Age related degenerative changes of the visualized osseous structures without focal destructive lesion. IMPRESSION: 1. There is no pulmonary infiltrate or pulmonary mass 2. Emphysematous changes 3. Stable 6 mm smooth bordered nodule seen within the right middle lobe abutting the right major fissure best appreciated on sagittal image number 119 LUNG RADS: Lung-RADS 2 - Benign (v2022) Management: 12 month screening LDCT Interpreted by: Marek Swartz MD Signed by: Marek Swartz MD 01/06/25 Final resultNormLutheran Medical CenterCB With Platelet and Differentialon 33-16-1281Johdjqjcs (Bld) [#/Vol]0.0 10*3/uLNormal0.0-0.2MUCHealth Broomfield HospitalComment on above:Performed By: #### CBCWD #### [facility] [address] [place] [address] Tzjymcqlc/100 WBC (Bld)0.3 %[facility] Comment on above:Performed By: #### CBCWD #### [facility] [address] [place] [address] Mdzvyqqewtd (Bld) [#/Vol]0.2 10*3/uLNormal0.0-0.7[facility] HospitalComment on above:Performed By: #### CBCWD #### [facility] [address] [place] [address] Knkjhieikar/100 WBC (Bld)1.6 %[facility] Comment on above:Performed By: #### CBCWD #### [facility] [address] [place] [address] Ktucsmtteir distribution width (RBC) [Ratio]13.7 %Jtnhul05.5-14.5 [facility] HospitalComment on above:Performed By: #### CBCWD #### [facility] [address] [place] [address] Lpqryvgofo (Bld) [Volume fraction]44.9 %Mjgvit20.0-47.0[facility] HospitalComment on above:Performed By: #### CBCWD #### [facility] [address] [place] [address] Ofzrimlzvn (Bld) [Mass/Vol]15.1 g/gGQwetjc02.0-16.0[facility] HospitalComment on above:Performed By: #### CBCWD #### [facility] [address] [place] [address] Xvuhcylltag (Bld) [#/Vol]2.3 10*3/uLNormal1.0-4.8[facility] HospitalComment on above:Performed By: #### CBCWD #### [facility] [address] [place] [address] Pjphgmbjdvm/100 WBC (Bld)22.7 %[facility] Comment on above:Performed By: #### CBCWD #### [facility] [address] [place] [address] EDW (RBC) [Entitic mass]34.0 pgCritically high27.0-31.3MUCHealth Broomfield HospitalComment on above:Performed By: #### CBCWD #### [facility] [address] [place] [address] UQLJ26.6 %Mkvlxt95.0-37.0[facility] HospitalComment on above:Performed By: #### CBCWD #### [facility] [address] [place] [address] ETG (RBC) [Entitic vol]101.1 fLCritically high79.4-94.8[facility] HospitalComment on above:Performed By: #### CBCWD #### [facility] [address] [place] [address] Kvmxdkrms (Bld) [#/Vol]0.5 10*3/uLNormal0.2-0.8[facility] HospitalComment on above:Performed By: #### CBCWD #### [facility] [address] [place] [address] Wonfgtwge/100 WBC (Bld)4.9 %[facility] Comment on above:Performed By: #### CBCWD #### [facility] [address] [place] [address] Ihdfrhbhqvs (Bld) [#/Vol]7.2 10*3/uLCritically high1.4-6.5[facility] HospitalComment on above:Performed By: #### CBCWD #### [facility] [address] [place] [address] Nqbccqzmmvy/100 WBC (Bld)70.0 %[facility] Comment on above:Performed By: #### CBCWD #### [facility] [address] [place] [address] Rfryvfuzv (Bld) [#/Vol]380 10*3/tQRmpcwz916-308VenvzFamily Health West HospitalComment on above:Performed By: #### CBCWD #### [facility] [address] [place] [address] ODX (Bld) [#/Vol]4.44 10*6/uLNormal4.20-5.40[facility] HospitalComment on above:Performed By: #### CBCWD #### [facility] [address] [place] [address] FMX (Bld) [#/Vol]10.3 10*3/uLNormal4.8-10.8[facility] HospitalComment on above:Performed By: #### CBCWD #### [facility] [address] [place] [address] Ovhtorsipuhsc Metabolic Panel Fastingon 74-86-6239Lbsedbw [Mass/Vol] 4.3 g/dLNormal3.5-4.6MUCHealth Broomfield HospitalComment on above:Performed By: #### CMPF #### [facility] [address] [place] [address] PTR [Catalytic activity/Vol]91 U/KXwdcqi78-340JxuzzFamily Health West HospitalComment on above:Performed By: #### CMPF #### [facility] [address] [place] [address] DHQ [Catalytic activity/Vol]11 U/LNormal0-33[facility] HospitalComment on above:Performed By: #### CMPF #### [facility] [address] [place] [address] Jdohd gap [Moles/Vol]12 mmol/LNormal9-15[facility] HospitalComment on above:Performed By: #### CMPF #### [facility] [address] [place] [address] UKC [Catalytic activity/Vol]20 U/LNormal0-35[facility] HospitalComment on above:Performed By: #### CMPF #### [facility] [address] [place] [address] Yogiesymb [Mass/Vol]0.6 mg/dLNormal0.2-0.7[facility] HospitalComment on above:Performed By: #### CMPF #### [facility] [address] [place] [address] Enhilcp [Mass/Vol]9.4 mg/dLNormal8.5-9.9[facility] HospitalComment on above:Performed By: #### CMPF #### [facility] [address] [place] [address] Csdctkxc [Moles/Vol]101 mmol/XYocbzn52-962HldstFamily Health West HospitalComment on above:Performed By: #### CMPF #### [facility] [address] [place] [address] YN7 [Moles/Vol]25 mmol/CNqnmou01-56WtrciFamily Health West Hospital Comment on above:Performed By: #### CMPF #### [facility] [address] [place] [address] Ymysnxguqx [Mass/Vol]0.76 mg/dLNormal0.50-0.90[facility] HospitalComment on above:Performed By: #### CMPF #### [facility] [address] [place] [address] ORB>90.0Normal>60[facility] HospitalComment on above: Result Comment: Pediatric calculator link https://www.kidney.org/professionals/kdoqi/gfr_calculatorped Effective Dec [...] or following therapy that affects renal tubular secretion.Performed By: #### CMPF #### [facility] [address] [place] [address] Apcoyhll (S) [Mass/Vol]2.4 g/dLNormal2.3-3.5[facility] HospitalComment on above:Performed By: #### CMPF #### [facility] [address] [place] [address] Tuijiij [Mass/Vol]149 mg/dLCritically dcys75-15WsjpxUCHealth Broomfield HospitalComment on above:Performed By: #### CMPF #### [facility] [address] [place] [address] Rugweofut [Moles/Vol]5.9 mmol/LCritically high3.4-4.9[facility] HospitalComment on above:Performed By: #### CMPF #### [facility] [address] [place] [address] Hxssdda [Mass/Vol]6.7 g/dLNormal6.3-8.0[facility] Comment on above:Performed By: #### CMPF #### [facility] [address] [place] [address] Jrdclc [Moles/Vol]138 mmol/TMmkuxl853-428DbcekFamily Health West HospitalComment on above:Performed By: #### CMPF #### [facility] [address] [place] [address] Dgak nitrogen [Mass/Vol]16 mg/dLNormal6-20[facility] HospitalComment on above:Performed By: #### CMPF #### [facility] [address] [place] [address] Ohfsg Panelon 03-68-8510Xkftaheqvwe [Mass/Vol]175 mg/dLNormal0-199 [facility] HospitalComment on above:Result Comment: ATP III Cholesterol classification is Desirable.Performed By: #### LIPID #### [facility] [address] [place] [address] Nzklexzgyru in HDL [Mass/Vol]91 mg/dLCritically bpcf66-42UfqftFamily Health West HospitalComment on above:Result Comment: ATP III HDL Cholesterol Classification is high. Expected Values: Males: >55 = No Risk 35-55 = Moderate Risk <35 = High Risk Females: >65 = No Risk 45-65 = Moderate Risk <45 = High Risk NCEP Guidelines: Third Report July 2000 >59 = negative risk factor for CHD <40 = major risk factor for CHDPerformed By: #### LIPID #### [facility] [address] [facility] [address] Uykpawkueks in LDL [Mass/Vol]68 mg/dLNormal0-129[facility] HospitalComment on above:Result Comment: ATP III LDL Classification is Optimal. LDL calculated using the Friedewald equation.Performed By: #### LIPID #### [facility] [address] [facility] [address] Xyhjwbvkoray [Mass/Vol]82 mg/dLNormal0-150[facility] HospitalComment on above:Result Comment: ATP III Triglycerides Classification is Normal.Performed By: #### LIPID #### [facility] [address] [facility] [address] XRW w/Reflexon 56-66-6768NNZ w/Reflex3.010 uIU/mLNormal0.440-3.86 [facility] HospitalComment on above:Result Comment: Free T4 will automatically reflex with a TSH result of <0.270 or >4.200Performed By: #### TSHR #### [facility] [address] [facility] [place] [address] Zgnzozxki Freeon 71-10-0680Atfwwmeon Free1.42 ng/dLNormal0.84-1.68 [facility] HospitalComment on above:Performed By: #### FRT4 #### [facility] [address] [place] [address] IK Microalbumin/Creatinine Ratio Randomon 12-01-2024 Microalbumin/creatinine Ratiosee belowNormal0.0-30.0[facility] HospitalComment on above:Result Comment: - UR Microalbumin concentration is less than 1.2 mg/dL. - Unable to calculate Microalbumin/Creatinine Ratio without a Microalbumin concentration.Performed By: #### UMACR #### [facility] [address] [place] [address] [place] Microalbumin Random<1.20NormalNot [facility]Health AvistaComment on above:Performed By: #### UMACR #### [facility] [address] [place] [address] ID Creatinine Mjkmls47.3 mg/dLNormalNot [facility]Health AvistaComment on above:Performed By: #### UMACR #### [facility] [address] [place] [address] VD CTA ABD AORTA W RUNOFFon [id number] CTA ABD AORTA W RUNOFFCT CTA ABD AORTA W RUNOFF CT CTA ABD AORTA W RUNOFF Clinical information: Critical limb ischemia with history of revascularization of same extremity ([facility]). Peripheral arterial disease. Limb ischemia. Comparison: 06/27/2021 [...] the proximal bilateral renal arteries with mild stenosis.No dissection. SAMUEL: Occluded at the ostium. Distal [...] with moderate stenosis. Profundofemoral is patent. The [place] left SFA is chronically occluded. There is a left common femoral artery to popliteal artery bypass which is patent. There is asymmetric delayed opacificationof the left popliteal and tibial arteries compared to the right. There is no significant upstream stenosis and this is presumably secondary to delayed flow of contrast through the bypass conduit. Theleft popliteal is within normal limits. Normal three-vessel [...] by Mark Gillis MD on 08/30/2024 12:49 PMNormalProGonzales Memorial HospitalCREATININE, SERUMon [id number] [Mass/Vol]1.08 mg/dLHigh 0.40-1.00ProGonzales Memorial HospitalComment on above:Result Comment: METHOD TRACEABLE TO [facility] STANDARDPerformed By: #### ACCT EXEC #### [facility] ([facility]) [address] [place] [address]. [place] [address] VIRGFR/1.73 sq M.predicted among non-blacks MDRD (S/P/Bld) [Vol rate/Area]60 mL/min/{1.73_m2}Normal>=60ProGonzales Memorial HospitalComment on above:Result Comment: Reported eGFR is based on the CKD-EPI 2020 equation that does not use a race coefficient.Performed By: #### ACCT EXEC #### [facility] ([facility]) [address] [place] [address] VIREDEBBIEon [id number]. [facility] Patient: KHRIS MCGOWAN : 1965 Account: [id number] Sex at : Female Age: 58 Years Procedure: Upper GI endoscopy Date: 02/22/2024 Attending Physician: SWAPNA RANDALL Indications: - Dysphagia - Follow-up of esophageal reflux Medications: - See the Anesthesia note for documentation of the administered medications Complications: - No immediate complications. Estimated Blood Loss: - Estimated blood loss was minimal. Procedure: - The Gastroscope was introduced through the mouth and advanced to the second part of the duodenum. - The upper GI endoscopy was accomplished without difficulty. - The patient tolerated the procedure well. Findings: - LA Grade B (one or more mucosal breaks greater than 5 mm, not extending between the tops of two mucosal folds) esophagitis with no bleeding was found in the lower third of the esophagus. - The Z-line was regular and was found 38 cm from the incisors. - No other significant abnormalities were identified in a careful examination of the esophagus. - The entire examined stomach was normal. - The examined duodenum was normal. Impression: - LA Grade B reflux esophagitis with no bleeding. - Z-line regular, 38 cm from the incisors. - Normal stomach. - Normal examined duodenum. - No specimens collected. Recommendation: - Follow an antireflux regimen. - Take prescribed proton pump inhibitor or H2 dominic (antacid) medications 30 - 60 minutes before meals. - Add Pepcid 20 mg twice daily to current medication regimen - Return to GI clinic in 6 weeks. Procedure Code(s): - 43102, Esophagogastroduodenoscopy, flexible, transoral; diagnostic, including collection of specimen(s) by brushing or washing, when performed (separate procedure) Diagnosis Code(s): - R13.10, Dysphagia, unspecified - K21.00, Gastro-esophageal reflux disease with esophagitis, without bleeding CPT(R) - 202 copyright [employer]. All Rights Reserved. The CPT codes, CCI edits and ICD codes generated are intended as suggestions and were generated based on input data. These codes are preliminary and upon recreation therapy aides teacher review may be revised to meet current compliance and payer requirements. The provider is responsible for the final determination of appropriate codes, and modifiers. SWAPNA RANDALL This document has been electronically signed. Note Initiated:02/22/2024 Note Completed:02/22/2024 12:39 PMSWOH Swapna Salazar MD - 02/22/2024 [facility] Patient: KHRIS MCGOWAN : 1965 Account: [id number] Sex at : Female Age: 58 Years Procedure: Upper GI endoscopy Date: 02/22/2024 Attending Physician: SWAPNA RANDALL Indications: - Dysphagia - Follow-up of esophageal reflux Medications: - See the Anesthesia note for documentation of the administered medications Complications: - No immediate complications. Estimated Blood Loss: - Estimated blood loss was minimal. Procedure: - The Gastroscope was introduced through the mouth and advanced to the second part of the duodenum. - The upper GI endoscopy was accomplished without difficulty. - The patient tolerated the procedure well. Findings: - LA Grade B (one or more mucosal breaks greater than 5 mm, not extending between the tops of two mucosal folds) esophagitis with no bleeding was found in the lower third of the esophagus. - The Z-line was regular and was found 38 cm from the incisors. - No other significant abnormalities were identified in a careful examination of the esophagus. - The entire examined stomach was normal. - The examined duodenum was normal. Impression: - LA Grade B reflux esophagitis with no bleeding. - Z-line regular, 38 cm from the incisors. - Normal stomach. - Normal examined duodenum. - No specimens collected. Recommendation: - Follow an antireflux regimen. - Take prescribed proton pump inhibitor or H2 dominic (antacid) medications 30 - 60 minutes before meals. - Add Pepcid 20 mg twice daily to current medication regimen - Return to GI clinic in 6 weeks. Procedure Code(s): - 10038, Esophagogastroduodenoscopy, flexible, transoral; diagnostic, including collection of specimen(s) by brushing or washing, when performed (separate procedure) Diagnosis Code(s): - R13.10, Dysphagia, unspecified - K21.00, Gastro-esophageal reflux disease with esophagitis, without bleeding CPT(R) - 2022 copyright [employer]. All Rights Reserved. The CPT codes, CCI edits and ICD codes generated are intended as suggestions and were generated based on input data. These codes are preliminary and upon recreation therapy aides teacher review may be revised to meet current compliance and payer requirements. The provider is responsible for the final determination of appropriate codes, and modifiers. SWAPNA RANDALL This document has been electronically signed. Note Initiated:02/22/2024 Note Completed:02/22/2024 12:39 PM Bon [facility] CenterPOCT Glucoseon [id number] [Mass/Vol]134 mg/hSCfcy06 - 99 mg/dlBon [facility], Cancer CenterInterpretation and review of laboratory resultsAbnormalBon Secours St. Mary'S HospitalPerformed on ACCU-CHEKBon [facility] Medical CenterGlucose [Mass/Vol]134 mg/dLCritically nohb21-70QpugjUCHealth Broomfield HospitalComment on above:Performed By: #### PGLU #### [facility] [address] [place] [address] PYV Performed onACCU-CHEKNormalFamily Health West HospitalComment on above:Performed By: #### PGLU #### [facility] [address] [place] [address] NZY With Platelet and Differentialon [id number] (Bld) [#/Vol]0.0 10*3/uLNormal0.0-0.2MUCHealth Broomfield HospitalComment on above: Performed By: #### CBCWD #### [facility] [address] [place] [address] Jrnptfdyf/100 WBC (Bld)0.6 %NormalFamily Health West Hospital Comment on above:Performed By: #### CBCWD #### [facility] [address] [place] [address] Rrcaujbaclk (Bld) [#/Vol]0.1 10*3/uLNormal0.0-0.7Family Health West HospitalComment on above:Performed By: #### CBCWD #### [facility] [address] [place] [address] Criermcspmd/100 WBC (Bld)1.9 %[facility] Comment on above:Performed By: #### CBCWD #### [facility] [address] [address] Ceqbmwsukei distribution width (RBC) [Ratio]13.7 %Apipeu03.5-14.5 [facility] HospitalComment on above:Performed By: #### CBCWD #### [facility] [address] [place] [address] Hvxxsyblmf (Bld) [Volume fraction]48.1 %Critically high37.0-47.0 [facility] HospitalComment on above:Performed By: #### CBCWD #### [facility] [address] [place] [address] Kpwvohxjyz (Bld) [Mass/Vol]16.8 g/dLCritically high12.0-16.0Family Health [facility] HospitalComment on above:Performed By: #### CBCWD #### [facility] [address] [place] [address] Nfutcnrulyo (Bld) [#/Vol]1.3 10*3/uLNormal1.0-4.8[facility] Health [facility] HospitalComment on above:Performed By: #### CBCWD #### [facility] [address] [place] [address] Umgzxyiuyhl/100 WBC (Bld)20.9 %[facility] Comment on above:Performed By: #### CBCWD #### [facility] [address] [place] [address] NCM (RBC) [Entitic mass]33.1 pgCritically high27.0-31.3MUCHealth Broomfield HospitalComment on above:Performed By: #### CBCWD #### [facility] [address] [place] [address] EVVV74.9 %Sjfacq69.0-37.0[facility] HospitalComment on above:Performed By: #### CBCWD #### [facility] [address] [place] [address] GIJ (RBC) [Entitic vol]94.9 fLCritically high79.4-94.8[facility] HospitalComment on above:Performed By: #### CBCWD #### [facility] [address] [place] [address] Rgpytpexs (Bld) [#/Vol]0.5 10*3/uLNormal0.2-0.8[facility] HospitalComment on above:Performed By: #### CBCWD #### [facility] [address] [place] [address] Slgeycmxr/100 WBC (Bld)7.1 %[facility] Comment on above:Performed By: #### CBCWD #### [facility] [address] [place] [address] Mrqdjxhvbmw (Bld) [#/Vol]4.4 10*3/uLNormal1.4-6.5Family Health [facility] HospitalComment on above:Performed By: #### CBCWD #### [facility] [address] [place] [address] Difxamsohmm/100 WBC (Bld)69.3 %[facility] Comment on above:Performed By: #### CBCWD #### [facility] [address] [place] [address] Mzrhswzmk (Bld) [#/Vol]321 10*3/jZLtquoo660-233LpzajFamily Health West HospitalComment on above:Performed By: #### CBCWD #### [facility] [address] [place] [address] GOB (Bld) [#/Vol]5.07 10*6/uLNormal4.20-5.40[facility] HospitalComment on above:Performed By: #### CBCWD #### [facility] [address] [place] [address] RQA (Bld) [#/Vol]6.4 10*3/uLNormal4.8-10.8[facility] HospitalComment on above:Performed By: #### CBCWD #### [facility] [address] [place] [address] Vvnuclkfljlil Metabolic Panelon 51-90-3853Zskyw gap [Moles/Vol]13 mmol/LNormal9-15[facility] Health [facility] HospitalComment on above:Performed By: #### CMP #### [facility] [address] [place] [address] Ayrmypp [Mass/Vol]4.0 g/dLNormal3.5-4.6MUCHealth Broom[facility] Hospital Comment on above:Performed By: #### CMP #### [facility] [address] [place] [address] SHP [Catalytic activity/Vol]133 U/LCritically dbbo07-645RldxpFamily Health West HospitalComment on above:Performed By: #### CMP #### [facility] [address] [place] [address] LBP [Catalytic activity/Vol]13 U/LNormal0-33[facility] HospitalComment on above:Performed By: #### CMP #### [facility] [address] [place] [address] QIP [Catalytic activity/Vol]17 U/LNormal0-35[facility] HospitalComment on above:Performed By: #### CMP #### [facility] [address] [place] [address] Ykammbidq [Mass/Vol]0.3 mg/dLNormal0.2-0.7[facility] Health [facility] HospitalComment on above:Performed By: #### CMP #### [facility] [address] [place] [address] Mxagste [Mass/Vol]9.1 mg/dLNormal8.5-9.9[facility] HospitalComment on above:Performed By: #### CMP #### [facility] [address] [place] [address] Huaxpasf [Moles/Vol]100 mmol/KTjnavx21-049ZokpuFamily Health West HospitalComment on above:Performed By: #### CMP #### [facility] [address] [place] [address] IL6 [Moles/Vol]25 mmol/RAkpdpu64-43HtabnFamily Health West Hospital Comment on above:Performed By: #### CMP #### [facility] [address] [place] [address] Hiwazcsmuw [Mass/Vol]0.71 mg/dLNormal0.50-0.90[facility] Health [facility] HospitalComment on above:Performed By: #### CMP #### [facility] [address] [place] [address] BQT>90.0Normal>60Family Health West HospitalComment on above: Result Comment: Pediatric calculator link https://www.kidney.org/professionals/kdoqi/gfr_calculatorped Effective Dec [...] or following therapy that affects renal tubular secretion.Performed By: #### CMP #### [facility] [address] [place] [address] Wfbnsava (S) [Mass/Vol]2.4 g/dLNormal2.3-3.5[facility] HospitalComment on above:Performed By: #### CMP #### [facility] [address] [place] [address] Sfgvrks [Mass/Vol]167 mg/dLCritically wyoh24-04JowpnUCHealth Broomfield HospitalComment on above:Performed By: #### CMP #### [facility] [address] [place] [address] Dnmqhhlpz [Moles/Vol]4.1 mmol/LNormal3.4-4.9[facility] HospitalComment on above:Performed By: #### CMP #### [facility] [address] [place] [address] Rhunqva [Mass/Vol]6.4 g/dLNormal6.3-8.0[facility] Comment on above:Performed By: #### CMP #### [facility] [address] [place] [address] Unnbum [Moles/Vol]138 mmol/LQrzjbx747-946UaropFamily Health West HospitalComment on above:Performed By: #### CMP #### [facility] [address] [place] [address] Vhkf nitrogen [Mass/Vol]8 mg/dLNormal6-20[facility] HospitalComment on above:Performed By: #### CMP #### [facility] [address] [place] [address] [place] Panelon 20-43-9707Czjkelnoeeo [Mass/Vol]150 mg/dLNormal0-199 [facility] HospitalComment on above:Result Comment: ATP III Cholesterol classification is Desirable.Performed By: #### LIPID #### [facility] [address] [place] [address] Jzwdzwfetkq in HDL [Mass/Vol]81 mg/dLCritically jler11-06AngraFamily Health West HospitalComment on above:Result Comment: ATP III HDL Cholesterol Classification is high. Expected Values: Males: >55 = No Risk 35-55 = Moderate Risk <35 = High Risk Females: >65 = No Risk 45-65 = Moderate Risk <45 = High Risk NCEP Guidelines: Third Report July 2000 >59 = negative risk factor for CHD <40 = major risk factor for CHDPerformed By: #### LIPID #### [facility] [address] [place] [address] Kylmvdmuayv in LDL [Mass/Vol]54 mg/dLNormal0-129Family Health West HospitalComment on above:Result Comment: ATP III LDL Classification is Optimal.Performed By: #### LIPID #### [facility] [address] [place] [address] Kdmskjfzirjg [Mass/Vol]77 mg/dLNormal0-150Family Health West HospitalComment on above:Result Comment: ATP III Triglycerides Classification is Normal.Performed By: #### LIPID #### [facility] [address] [place] [address] DOR w/Reflexon [id number] w/Reflex2.170 uIU/mLNormal0.440-3.86 [facility] HospitalComment on above:Result Comment: Free T4 will automatically reflex with a TSH result of <0.270 or >4.200Performed By: #### TSHR #### [facility] [address] [place] [address] Dbmky Cultureon [id number] identified Cx Nom (U)ORGANISM: Enterobacter cloacae complex (O:ENTCLOCPLX) [place] Count >100,000 PERFORMED BY: [place] [address] PATHOLOGIST ANALYTICAL STRATEGIST REJI GOLDSMITH M.D.NormalAdventhealth Connerton Physician GroupComment on above:Performed By: #### CUU #### [place] [address] USACT Chest for screeningon [id number] changes including upper lobe predominant is agent intra bronchiectasis of COPD findings with a right middle lobe 6 mm noncalcified nodule focus associated or adjacent to the fissure. CT chest recommended 6 months for follow-up LUNG RADS: Lung rads category 3 with mild suspicion follow-up recommended CT chest 6 months RECOMMENDATIONS: If you would like to register your patient with the [facility] Lung Nodule/Lung Cancer Screening Program, please contact the Nurse Navigator at . [facility] RADIOLOGYEXAMINATION: LOW DOSE SCREENING CT OF THE CHEST WITHOUT CONTRAST 05/21/2023 1:33 pm TECHNIQUE: Low dose lung cancer screening CT of the chest was performed without the administration of intravenous contrast. Multiplanar reformatted images are provided for review. Automated exposure control, iterative reconstruction, and/or weight based adjustment of the mA/kV was utilized to reduce the radiation dose to as low as reasonably achievable. COMPARISON: None. HISTORY: ORDERING SYSTEM PROVIDED HISTORY: Personal history of tobacco use TECHNOLOGIST PROVIDED HISTORY: Age: Patient is 57 y.o. Smoking History: Tobacco Use Smoking status: Former Packs/day: 0.00 Years: 1 pack/day for 36.0 years (36.0 ttl pk-yrs) Types: Cigarettes Start date: 1985 Quit date: 2021 Years since quittin.1 Smokeless tobacco: Never Date of last lung cancer screening: No previous lung cancer screening exam Is there documentation of shared decision making?->Yes Is this a low dose CT or a routine CT?->Low Dose CT Is this the first (baseline) CT or an annual exam?->Baseline Does the patient show any signs or symptoms of lung cancer?->No Smoking Status?->Former Date quit smoking? (must be within 15 years)->04/19/18 Pack Years->36 What reading provider will be dictating this exam?->CRC FINDINGS: Mediastinum: Thyroid is homogeneous in attenuation. No bulky mediastinal adenopathy. Central airways are patent. Esophagus with normal course and caliber. Cardiac size within normal limits without pericardial effusion. Lungs/pleura: Lungs are clear without focal opacification or consolidation. Hyperinflated lungs with upper lobe predominant centrilobular and paraseptal emphysema. Central bronchiectasis without mucous plugging. Right middle lobe 6 mm noncalcified nodule adjacent to or involving the right major fissure. No pleural effusion or pleural process. Upper Abdomen: Visualized portions of the upper abdomen unremarkable. Soft Tissues/Bones: No acute osseous or soft tissue findings. No aggressive osseous lesion. [facility] HOSPITALAlexander Morocho, DO - 05/21/2023 EXAMINATION: LOW DOSE SCREENING CT OF THE CHEST WITHOUT CONTRAST 05/21/2023 1:33 pm TECHNIQUE: Low dose lung cancer screening CT of the chest was performed without the administration of intravenous contrast. Multiplanar reformatted images are provided for review. Automated exposure control, iterative reconstruction, and/or weight based adjustment of the mA/kV was utilized to reduce the radiation dose to as low as reasonably achievable. COMPARISON: None. HISTORY: ORDERING SYSTEM PROVIDED HISTORY: Personal history of tobacco use TECHNOLOGIST PROVIDED HISTORY: Age: Patient is 57 y.o. Smoking History: Tobacco Use Smoking status: Former Packs/day: 0.00 Years: 1 pack/day for 36.0 years (36.0 ttl pk-yrs) Types: Cigarettes Start date: 1985 Quit date: 2021 Years since quittin.1 Smokeless tobacco: Never Date of last lung cancer screening: No previous lung cancer screening exam Is there documentation of shared decision making?->Yes Is this a low dose CT or a routine CT?->Low Dose CT Is this the first (baseline) CT or an annual exam?->Baseline Does the patient show any signs or symptoms of lung cancer?->No Smoking Status?->Former Date quit smoking? (must be within 15 years)->04/19/18 Pack Years->36 What reading provider will be dictating this exam?->CRC FINDINGS: Mediastinum: Thyroid is homogeneous in attenuation. No bulky mediastinal adenopathy. Central airways are patent. Esophagus with normal course and caliber. Cardiac size within normal limits without pericardial effusion. Lungs/pleura: Lungs are clear without focal opacification or consolidation. Hyperinflated lungs with upper lobe predominant centrilobular and paraseptal emphysema. Central bronchiectasis without mucous plugging. Right middle lobe 6 mm noncalcified nodule adjacent to or involving the right major fissure. No pleural effusion or pleural process. Upper Abdomen: Visualized portions of the upper abdomen unremarkable. Soft Tissues/Bones: No acute osseous or soft tissue findings. No aggressive osseous lesion. IMPRESSION: Chronic changes including upper lobe predominant is agent intra bronchiectasis of COPD findings with a right middle lobe 6 mm noncalcified nodule focus associated or adjacent to the fissure. CT chest recommended 6 months for follow-up LUNG RADS: Lung rads category 3 with mild suspicion follow-up recommended CT chest 6 months RECOMMENDATIONS: If you would like to register your patient with the [facility] Lung Nodule/Lung Cancer Screening Program, please contact the Nurse Navigator at . [facility] HOSPITALRadiology Study observation (narrative)[facility] Chest for screeningOrdered By: Alexander Morocho on 15-12-4659HFY SUTTER ROSEVILLE MEDICAL CENTERavocarrot Work Phone: COVID + FLU Quick Testingon [id number]-CoV-2 (COVID-19) RNA CARL+probe Ql (Unsp spec)NegativeNort Maana Other COVID + FLU Quick TestingNegativeNort Maana Other Consultation Noteon [id number] Note [id number]#1.00CD:127NoSelect Medical Specialty Hospital - ColumbusOffice Visit (Cardiology)on 20-15-4544Hwcdqq-up visitDiagnoses/Problems Assessed Benign essential hypertension (401.1) (I10) Hyperlipidemia (272.4) (E78.5) Statin intolerance (995.27) (Z78.9) PVD (peripheral vascular disease) (443.9) (I73.9) Intermittent claudication (443.9) (I73.9) Diabetes mellitus (250.00) (E11.9) Body mass index (BMI) of 23.0 to 23.9 in adult (V85.1) (Z68.23) Former smoker (V15.82) (Z87.891) QUIT SMOKING 2020 Orders Benign essential hypertension Renew: amLODIPine Besylate 10 MG Oral Tablet; TAKE 1 TABLET DAILY Renew: Metoprolol Tartrate 25 MG Oral Tablet; TAKE 1 TABLET DAILY PVD (peripheral vascular disease) Renew: Aspirin 81 MG Oral Tablet Delayed Release; TAKE 1 TABLET DAILY Renew: Xarelto 2.5 MG Oral Tablet; TAKE ONE TABLET TWO TIMES DAILY SocHx: Former smoker Tobacco Use Screening; Status:Complete; Done: 12Sep2022 Patient Instructions Please bring all medicines, vitamins, and herbal supplements with you when you come to the office. Prescriptions will not be filled unless you are compliant with your follow up appointments or have a follow up appointment scheduled as per instruction of your physician. Refills should be requested at the time of your visit. Follow up in 6 months The provider reviewed the following test(s) and result(s) with the patient: laboratory tests Chief Complaint KHRIS MCGOWAN is being seen for a 6 month follow-up of. Patient is in the office for follow-up for the problems noted below. Since her last visit last viki has done very well. She quit smoking and her LDL cholesterol is down to 56 mg/dL when she is onPraluent. Her PAD is stable with no recent event and continue to follow with vascular surgery in [place]. Her weight increased significant from last visit and her BMI is up to 23 kg per metered squarewhich is on target. Her most recent lab data were reviewed by myself and shared with the patient. Her examination was unremarkable today. Her diabetes seems to be under control. ASSESSMENT AND PLAN: 1. Hypertension, currently under control medical therapy which will be left unchanged 2. Hyperlipidemia. Intolerant to statin. Will order Praluent 75 mg twice monthly, LDL cholesterol recently measured 56 mg/dL which is on target. 3. Diabetes, managed by , under control. 4. Severe PAD mostly involving the left lower extremity status post surgical revascularization 2021followed by vascular surgery in [facility] in [place]. Aggressive risk factor modification was emphasized. Currently on Xarelto vascular dose. 5. History of tobacco abuse that was extensive in the past, currently she is reformed. Emphasized the need for aggressive risk factor modification. Rj Rollins MD, [facility] Surgical History Problems History of Cardiac catheterization Denied: History of Colonoscopy History of Coronary artery bypass graft History of Leg surgery Past Medical History Problems History of Pre-operative cardiovascular examination (V72.81) (Z01.810) Resolved Date: 12 Sep 2022 Current Meds Medication NameInstruction Albuterol Sulfate HFA 108 (90 Base) MCG/ACT Inhalation Aerosol SolutionPRN amLODIPine Besylate 10 MG Oral TabletTAKE 1 TABLET DAILY. Aspirin 81 MG Oral Tablet Delayed ReleaseTAKE 1 TABLET DAILY. Flexeril 10 MG TABSTAKE 1 TABLET 3 TIMES DAILY. Gabapentin 100 MG Oral CapsuleTAKE 1 CAPSULE 3 TIMES DAILY. Ibuprofen 800 MG Oral Tabletas needed Metoprolol Tartrate 25 MG Oral TabletTAKE 1 TABLET DAILY. NovoLOG 100 UNIT/ML SOLNINJECT SUBCUTANEOUSLY DIRECTED. Ondansetron 4 MG Oral Tablet Disintegratingas directed Praluent 75 MG/ML Subcutaneous Solution Auto-injectorinject subcutaneously once every 2 weeks Xarelto 2.5 MG Oral TabletTAKE ONE TABLET TWO TIMES DAILY Patient did not bring medication list or bottles. Updated verbally with patient Allergies Medication Statins Recorded By: Kym Em; 11/29/2021 10:30:53 AM NonMedication Latex Recorded By: Ivy Liriano; 11/29/2021 10:00:02 AM GLOVES Social History Problems Caffeine use (V49.89) (Z78.9) COFFEE 4 TIMES A WEEK, DIET PEPSI 4 TIMES A WEEK, OCCASIONAL UNSWEET TEA Former smoker (V15.82) (Z87.891) QUIT SMOKING 2020 No illicit drug use Occasional alcohol use Review of Systems Constitutional: not feeling tired. Cardiovascular: no intermittent leg claudication and as noted in HPI. Respiratory: no cough and no shortness of breath. Gastrointestinal: no change in bowel habits and no blood in stools. Integumentary: no skin rashes. Neurological: no seizures and no frequent falls. All other systems have been reviewed and are negative for complaint. Vitals Vital Signs Recorded: 12Sep2022 09:21AM Heart Rate80, R Radial Qmzhqhfd827, LUE, Sitting Yvnxmtloz92, LUE, Sitting Height5 ft 4 in Ijvxnt681 lb BMI Ypzpuhfhje40.86 kg/m2 BSA Calculated1.68 Tobacco Useb) No PHQ-2 Patient Declined/Screening not indicatedYes Falls Screening (Age 18+)a) No falls within the last year Physical (more content not included)...NormalUH TouchworksTobacco Screening.on 70-54-4955Utdw risk assessmenta) No falls within the last year BN-Vynafvgdmk-Htvdsqwn 250 DO Work Phone: Tobacco use status CPHSb) GxTE-Othjbjyeuj-Nvowfxbc 250 DO Work Phone: Tobacco Screening.WqaOY-Lqspwzwdlq-Kwsstciv 250 DO Work Phone: A1C with Estimated Average Gluon 84-45-9735Hqizcub [Mass/Vol]154 mg/dLNoDavis Regional Medical Center Physician GroupComment on above:Result Comment: PERFORMED BY: [facility] [place] [address] PATHOLOGIST ANALYTICAL STRATEGIST REJI GOLDSMITH M.D.Performed By: #### CU #### [facility] ,SHIRLEY Antinuclear Antibodieson 27-79-7385Cqdszvzcyhk Abs, IFAPositiveCritically abnormal.[facility] Physician GroupComment on above:Result Comment: Negative <1:80 Borderline 1:80 Positive >1:80Performed By: #### HOMOCYS PL, CERULOP, SPE, AMY SERUM, MERCURY, SHIRLEY, MIHIR, LYME AB wRFX, LEAD,ADULT, ZINC,PL, WEST ECHO, GH, ARSENIC, VITB6, RPR W RFX, METH, RA #### [facility] , #### HEPATIC, MCKENNA, ESR, AMM, HSCRP, A1C WTH eA, [id number], T3T, T4F, TSH3, PRL #### [facility] [address] [id number] USAHomogeneous Pattern1:80Normal.The [facility] Physician GroupComment on above:Result Comment: ICAP nomenclature: AC-1Performed By: #### HOMOCYS [address], CERULOP, SPE, AMY SERUM, MERCURY, SHIRLEY, MIHIR, LYME AB wRFX, LEAD,ADULT, ZINC,PL, WEST ECHO, GH, ARSENIC, VITB6, RPR W RFX, METH, RA #### [facility] , #### HEPATIC, MCKENNA, ESR, AMM, HSCRP, A1C WTH eA, [id number], T3T, T4F, TSH3, PRL #### [facility] [address] [id number] USANote 1Normal.The [facility] Physician GroupComment on above:Result Comment: For more information about Hep-2 cell patterns use ANApatterns.org, the official website for the International Consensus on Antinuclear Antibody (SHIRLEY) Patterns (ICAP). A positive SHIRLEY result may occur in healthy individuals (low titer) or be associated with a variety of diseases. See interpretation chart which is not all inclusive: Pattern Antigen Detected Suggested Disease Association Homogeneous DNA(ds,ss), SLE - High titers Nucleosomes, Histones Drug-induced SLE Speckled Sm, VIDEO OPERATOR, SCL-70, SLE,MCTD,PSS (diffuse form), SS-A/SS-B Sjogrens Nucleolar SCL-70, PM-1/SCL High titers Scleroderma, PM/DM Centromere Centromere PSS (limited form) w/Crest syndrome variable Nuclear Dot Sp100,y02-hffuer Primary Biliary Cirrhosis Nuclear GP210, Primary Biliary Cirrhosis Membrane kiran A,B,C Performed at: CB - [facility] [address] [id number] Nursing Care Partner: Paresh Sanders PhD, Phone: [phone] By: #### HOMOC[address], CERULOP, SPE, AMY SERUM, MERCURY, SHIRLEY, MIHIR, LYME AB wRFX, LEAD,ADULT, ZINC,PL, WEST ECHO, GH, ARSENIC, VITB6, RPR W RFX, METH, RA #### [facility] , #### HEPATIC, MCKENNA, ESR, AMM, HSCRP, A1C WTH eA, [id number], T3T, T4F, TSH3, PRL #### [facility] [address] [id number] USAAlanine aminotransferase [Enzymatic activity/volume] in Serum or PlasmaOrdered By: Lonnie Major on 28-98-0633WWP [Catalytic activity/Vol]21 U/LNormal7-52[facility] Butler HospitalComment on above:Performed By: #### HOMOC[address], CERULOP, SPE, AMY SERUM, MERCURY, SHIRLEY, MIHIR, LYME AB wRFX, LEAD,ADULT, ZINC,PL, WEST ECHO, GH, ARSENIC, VITB6, RPR W RFX, METH, RA #### [facility] , #### HEPATIC, MCKENNA, ESR, AMM, HSCRP, A1C WTH eA, [id number], T3T, T4F, TSH3, PRL #### [facility] [address] [id number] USAAlbumin [Mass/volume] in Serum or Plasma by Bromocresol green (BCG) dye binding methoOrdered By: Lonnie Major on 99-18-5818Abaavja BCG dye [Mass/Vol]4.6 g/dL3.5-5.7FMercer County Community HospitalAlkaline phosphatase [Enzymatic activity/volume] in Serum or PlasmaOrdered By: Lonnie Major on 09-11-2022 ALP [Catalytic activity/Vol]97 U/NFhjaoo07-136ZwrqbgvujTrihealth Bethesda Butler Hospital Comment on above:Performed By: #### HOMOC[address], CERULOP, SPE, AMY SERUM, MERCURY, SHIRLEY, MIHIR, LYME AB wRFX, LEAD,ADULT, ZINC,PL, WEST ECHO, GH, ARSENIC, VITB6, RPR W RFX, METH, RA #### [facility] , #### HEPATIC, MCKENNA, ESR, AMM, HSCRP, A1C WTH eA, [id number], T3T, T4F, TSH3, PRL #### [place] [id number] USAAmmonia [Moles/volume] in PlasmaOrdered By: Lonnie Major on 46-01-4697Urbfusq (P) [Moles/Vol]38 umol/BGgxh18-01FbtenyiatTrihealth Bethesda Butler HospitalComment on above:Result Comment: PERFORMED BY: [place] [address] PATHOLOGIST ANALYTICAL STRATEGIST REJI GOLDSMITH M.D.Performed By: #### [address]OC[address], CERULOP, SPE, AMY SERUM, MERCURY, SHIRLEY, MIHIR, LYME AB wRFX, LEAD,ADULT, ZINC,PL, WEST ECHO, GH, ARSENIC, VITB6, RPR W RFX, METH, RA #### [facility] , #### HEPATIC, MCKENNA, ESR, AMM, HSCRP, A1C WTH eA, [id number], T3T, T4F, TSH3, PRL #### [place] [id number] USAAngiotensin Converting Enzymeon 18-77-1596Gzmueeknhya converting enzyme [Catalytic activity/Vol]48 U/EUbrans32-08Oef [facility] Physician GroupComment on above:Result Comment: Performed at: [facility] [address] [id number] Nursing Care Partner: Paresh Sanders PhD, Phone: [phone] By: #### CU #### [facility] ,Arsenicon 31-53-0076Sosdeqm8Gkyrav0-9The [facility] Physician GroupComment on above:Result Comment: This test was developed and its performance characteristics determined by [employer]. It has not been cleared or approved by the Food and Drug Administration. Detection Limit = 1Performed By: #### HOMOC[address], CERULOP, SPE, AMY SERUM, MERCURY, SHIRLEY, MIHIR, LYME AB wRFX, LEAD,ADULT, ZINC,PL, WEST ECHO, GH, ARSENIC, VITB6, RPR W RFX, METH, RA #### [facility] , #### HEPATIC, MCKENNA, ESR, AMM, HSCRP, A1C WTH eA, [id number], T3T, T4F, TSH3, PRL #### [facility] [address] [place] [address] USAAspartate aminotransferase [Enzymatic activity/volume] in Serum or PlasmaOrdered By: Lonnie Major on 11-93-7063SCM [Catalytic activity/Vol]24 U/SGdssyy84-55YbpquwbirTrihealth Bethesda Butler HospitalComment on above:Performed By: #### H[address]OC[address], CERULOP, SPE, AMY SERUM, MERCURY, SHIRLEY, MIHIR, LYME AB wRFX, LEAD,ADULT, ZINC,PL, WEST ECHO, GH, ARSENIC, VITB6, RPR W RFX, METH, RA #### [facility] , #### HEPATIC, MCKENNA, ESR, AMM, HSCRP, A1C WTH eA, [id number], T3T, T4F, TSH3, PRL #### [facility] [address] [place] [address] USABilirubin.direct [Mass/volume] in Serum or PlasmaOrdered By: Lonnie Major on 33-35-9631Fikhhkwco.direct [Mass/Vol]0.10 mg/dL0.03-0.18 [facility] Butler HospitalBilirubin.total [Mass/volume] in Serum or PlasmaOrdered By: Lonnie Major on 20-36-2697Wexmohbfs [Mass/Vol]0.5 mg/dLNormal 0.3-1.0[facility] HospitalComment on above:Performed By: #### HOMOC[address], CERULOP, SPE, AMY SERUM, MERCURY, SHIRLEY, MIHIR, LYME AB wRFX, LEAD,ADULT, ZINC,PL, WEST ECHO, GH, ARSENIC, VITB6, RPR W RFX, METH, RA #### [facility] , #### HEPATIC, MCKENNA, ESR, AMM, HSCRP, A1C WTH eA, [id number], T3T, T4F, TSH3, PRL #### [address] reactive protein [Mass/volume] in Serum or Plasma by High sensitivity methodOrdered By: Lonnie Jarredabdelrahman on 38-38-4763M[facility] High sensitivity method [Mass/Vol]0.9 mg/L0.0-0.9[facility] Butler HospitalComment on above:Cardiovascular Risk Classification (AHA/CDC)hsCRP < 1.0 mg/l low relative risk for CVDhsCRP 1.0-3.0 mg/l average relative risk for CVDhsCRP > 3.0 mg/l high relative risk for CVDhsCRP > 7.5 mg/l active inflammation*Two results two weeks apart and averaged provide a morestable estimate of hsCRP level.*hsCRP levels > 7.5 mg/l may suggest infection that canlimit the use of this marker for estimation of CVD risk.Ceruloplasminon 19-69-0464Mkkknyxxrdxef48.9 mg/dLNormal 19.0-39.0[facility] Physician GroupComment on above:Result Comment: Performed at: [address] [id number] Nursing Care Partner: Paresh Sanders PhD, Phone: [phone] PERFORMED BY: [place] [address] PATHOLOGIST ANALYTICAL STRATEGIST REJI GOLDSMITH M.D.Performed By: #### CU #### [facility] ,Copperon 53-29-3046Zghhit073 ug/dPPfgphm16-625Mix [facility] Comment on above:Result Comment: This test was developed and its performance characteristics determined by [employer]. It has not been cleared or approved by the Food and Drug Administration. Detection Limit = 5 Performed at: [address] [id number] Nursing Care Partner: Cyn Hodges MD, Phone: [phone] PERFORMED BY: [address] [place] [address] PATHOLOGIST ANALYTICAL STRATEGIST REJI GOLDSMITH M.D.Performed By: #### CU #### [facility] ,Copper, Urine Randomon 94-88-9113Zwbsky,Urine 17Il7FontoeWqz Estab.The [facility] Physician GroupComment on above:Result Comment: This test was developed and its performance characteristics determined by [facility]. It has not been cleared or approved by the Food and Drug Administration. Detection Limit = 1Performed By: #### HOMOC[address], CERULOP, SPE, AMY SERUM, MERCURY, SHIRLEY, MIHIR, LYME AB wRFX, LEAD,ADULT, ZINC,PL, WEST ECHO, GH, ARSENIC, VITB6, RPR W RFX, METH, RA #### [facility] , #### HEPATIC, MCKENNA, ESR, AMM, HSCRP, A1C WTH eA, [id number], T3T, T4F, TSH3, PRL #### [facility] [address] [id number] USACopper/Creatinine Ogmhc84Mjrwyy3-33Poe [facility] Physician [facility] Medical CenterComment on above:Result Comment: Performed at: [address] [id number] Nursing Care Partner: Cyn Hodges MD, Phone: [phone] By: #### [address]OMOC[address], CERULOP, SPE, AMY SERUM, MERCURY, SHIRLEY, MIHIR, LYME AB wRFX, LEAD,ADULT, ZINC,PL, WEST ECHO, GH, ARSENIC, VITB6, RPR W RFX, METH, RA #### [facility] , #### HEPATIC, MCKENNA, ESR, AMM, HSCRP, A1C WTH eA, [id number], T3T, T4F, TSH3, PRL #### [place] [address] USACreatinine, Copper,Urine0.21Low0.30-3.00The [facility] Physician GroupComment on above:Result Comment: Detection Limit = 0.10 Urine specimens that are highly dilute or highly concentrated are generally not suitable for monitoring. The World Health Organization has adopted guide- lines for acceptable limits as follows: Creatinine concentration: >0.30 g/L and <3.00 g/L.Performed By: #### HOMOC[address], CERULOP, SPE, AMY SERUM, MERCURY, SHIRLEY, MIHIR, LYME AB wRFX, LEAD,ADULT, ZINC,PL, WEST ECHO, GH, ARSENIC, VITB6, RPR W RFX, METH, RA #### [facility] , #### HEPATIC, MCKENNA, ESR, AMM, HSCRP, A1C WTH eA, [id number], T3T, T4F, TSH3, PRL #### [place] [address] USACortisolon 21-80-7823Wluxoplo78.1 ug/dLPhysicians Regional Medical Center [facility] Ridge Physician GroupComment on above:Result Comment: Reference range: AM 6 - 24 ug/dl PM <10 ug/dl PERFORMED BY: [place] [address] PATHOLOGIST ANALYTICAL STRATEGIST REJI GOLDSMITH M.D.Performed By: #### CU #### [facility] ,Erythrocyte Sedimentation Rateon 09-30-4710FDE (Bld) [Velocity]1 mm/hNormal0-29 [facility] Physician GroupComment on above:Result Comment: PERFORMED BY: [place] [address] PATHOLOGIST ANALYTICAL STRATEGIST REJI GOLDSMITH M.D.Performed By: #### [address]OMOC[address], CERULOP, SPE, AMY SERUM, MERCURY, SHIRLEY, MIHIR, LYME AB wRFX, LEAD,ADULT, ZINC,PL, WEST ECHO, GH, ARSENIC, VITB6, RPR W RFX, METH, RA #### [facility] , #### HEPATIC, MCKENNA, ESR, AMM, HSCRP, A1C WTH eA, [id number], T3T, T4F, TSH3, PRL #### [place] [address] USAErythrocyte sedimentation rate by Photometric method Ordered By: Lonnie Major on 15-56-5457VKZ Photometric method (Bld) [Velocity]1 mm/hr 0-29[facility] Butler HospitalFolate [Mass/volume] in Serum or Plasma Ordered By: Lonnie Sternabdelrahman on 70-40-9252Xhcunw [Mass/Vol]18.5 ng/mL>5.9[facility] HospitalComment on above:Folate reference range: >5.9 ng/mlThe WHO technical consultation on folate and vitamin p33dnvncnyslfzb has determined that folate concentrations lessthan 4 ng/ml are considered deficient.Glucose mean value [Mass/volume] in Blood Estimated from glycated hemoglobinOrdered By: Lonnie Sternabdelrahman on 04-64-0294Yyorvgi glucose Estimated from glycated hemoglobin (Bld) [Mass/Vol]154 mg/dLTrihealth Bethesda Butler HospitalGrowth Hormoneon 09-11-2022 Growth Hormone0.1 ng/mLNormal0.0-10.0The [facility] Physician GroupComment on above:Result Comment: Performed at: [employer] [facility] [employer] [address] [id number] Nursing Care Partner: Cyn Hodges MD, Phone: [phone] By: #### CU #### [facility] ,Hemoglobin A1c percentageOrdered By: Lonnie Major on 59-70-1882CwO1x (Bld) [Mass fraction]7.0 %High4.3-5.6FMercer County Community HospitalComment on above: Increased risk for diabetes: 5.7 - 6.4diabetes: >6.4glycemic control for adults with diabetes: <7.0Result Comment: Increased risk for diabetes: 5.7 - 6.4 diabetes: >6.4 glycemic control for adults with diabetes: <7.0Performed By: #### CU #### [facility] ,Hepatic Panelon 32-66-1521Ugyhnwb [Mass/Vol]4.6 g/dLNormal3.5-5.7The [facility] Physician GroupComment on above:Performed By: #### [address]OMOC[address], CERULOP, SPE, AMY SERUM, MERCURY, SHIRLEY, MIHIR, LYME AB wRFX, LEAD,ADULT, ZINC,PL, WEST ECHO, GH, ARSENIC, VITB6, RPR W RFX, METH, RA #### [facility] , #### HEPATIC, MCKENNA, ESR, AMM, HSCRP, A1C WTH eA, [id number], T3T, T4F, TSH3, PRL #### [facility] [address] [place] [address] USABilirubin,Indirect0.4 mg/dLNormalThe [facility] Physician GroupComment on above:Performed By: #### [address]OMOC[address], CERULOP, SPE, AMY SERUM, MERCURY, SHIRLEY, MIHIR, LYME AB wRFX, LEAD,ADULT, ZINC,PL, WEST ECHO, GH, ARSENIC, VITB6, RPR W RFX, METH, RA #### [facility] , #### HEPATIC, MCKENNA, ESR, AMM, HSCRP, A1C WTH eA, [id number], T3T, T4F, TSH3, PRL #### [facility] [address] [place] [address] USABilirubin.indirect [Mass/Vol]0.10 mg/dLNormal0.03-0.18The [facility] Physician GroupComment on above:Performed By: #### HOMOC[address], CERULOP, SPE, AMY SERUM, MERCURY, SHIRLEY, MIHIR, LYME AB wRFX, LEAD,ADULT, ZINC,PL, WEST ECHO, GH, ARSENIC, VITB6, RPR W RFX, METH, RA #### [facility] , #### HEPATIC, MCKENNA, ESR, AMM, HSCRP, A1C WTH eA, [id number], T3T, T4F, TSH3, PRL #### [facility] [address] [place] [address] USAHigh Sensitive CRPon 42-92-7553Qsfs Sensitive CRP0.9 mg/L Normal0.0-0.9The [facility] GroupComment on above:Result Comment: Cardiovascular Risk Classification (AHA/CDC) hsCRP < 1.0 mg/l low relative risk for CVD hsCRP 1.0-3.0 mg/l average relative risk for CVD hsCRP > 3.0 mg/l high relative risk for CVD hsCRP > 7.5 mg/l active inflammation* Two results two weeks apart and averaged provide a more stable estimate of hsCRP level. *hsCRP levels > 7.5 mg/l may suggest infection that can limit the use of this marker for estimation of CVD risk. PERFORMED BY: [place] [address] PATHOLOGIST ANALYTICAL STRATEGIST REJI GOLDSMITH M.D.Performed By: #### [address]OC[address], CERULOP, SPE, AMY SERUM, MERCURY, SHIRLEY, MIHIR, LYME AB wRFX, LEAD,ADULT, ZINC,PL, WEST ECHO, GH, ARSENIC, VITB6, RPR W RFX, METH, RA #### [facility] , #### HEPATIC, MCKENNA, ESR, AMM, HSCRP, A1C WTH eA, [id number], T3T, T4F, TSH3, PRL #### [facility] [address] [place], [place] [id number] USAHomocysteine, Plasma/Serumon 42-87-4411Loteuiiepgda, Plasma/Serum9.5 umol/LNormal0.0-14.5The [facility] Physician GroupComment on above:Result Comment: Performed at: - [facility] [id number] Nursing Care Partner: Paresh Sanders PhD, Phone: [phone] By: #### [address]OMOC[address], CERULOP, SPE, AMY SERUM, MERCURY, SHIRLEY, MIHIR, LYME AB wRFX, LEAD,ADULT, ZINC,PL, WEST ECHO, GH, ARSENIC, VITB6, RPR W RFX, METH, RA #### [facility] , #### HEPATIC, MCKENNA, ESR, AMM, HSCRP, A1C WTH eA, [id number], T3T, T4F, TSH3, PRL #### [facility] [address] [place], [place] [id number] USAImmunofixation, (AMY), Urineon 78-89-7146Jsxlhkoaslwtqp, (AMY), UrineNormal.The [facility] Physician GroupComment on above:Result Comment: No monoclonality detected. Performed at: [address], [place], [place] [id number] Nursing Care Partner: Paresh Sanders PhD, Phone: [phone] By: #### HOMOC[address], CERULOP, SPE, AMY SERUM, MERCURY, SHIRLEY, MIHIR, LYME AB wRFX, LEAD,ADULT, ZINC,PL, WEST ECHO, GH, ARSENIC, VITB6, RPR W RFX, METH, RA #### [facility] , #### HEPATIC, MCKENNA, ESR, AMM, HSCRP, A1C WTH eA, [id number], T3T, T4F, TSH3, PRL #### [facility] [address] [id number] USAImmunofixation,Serumon 22-65-6578Czcuvmzweecqky, Serum Normal.The [facility] Physician GroupComment on above:Result Comment: No monoclonality detected.Performed By: #### CU #### [facility] ,Immunoglobulin A, Vubew789 mg/cFXfwfpe04-429Ajf [facility] Comment on above:Performed By: #### CU #### [facility] ,Immunoglobulin G691 mg/aRCfklac714-2895Cho [facility] Physician GroupComment on above:Performed By: #### CU #### [facility] ,Immunoglobulin M, Serum9 mg/qBSia06-317Wro [facility] Physician GroupComment on above:Result Comment: Result confirmed on concentration.Performed By: #### CU #### [facility] ,Lead, Adulton 81-84-7944Exop-Adult Blood1.4 ug/dLNormal0.0-3.4The [facility] Physician GroupComment on above:Result Comment: Testing performed by Inductively coupled plasma/Mass Spectrometry. Analysis by inductively coupled plasma/mass spectrometry (ICP/MS) This test was developed and its performance characteristics determined by [employer]. It has not been cleared or approved by the Food and Drug Administration. Environmental Exposure: WHO Recommendation <5.0 Occupational Exposure: OSHA Lead Std 40.0 SUKUMAR 30.0 Detection Limit = 1.0 Performed at: [address] [id number] Nursing Care Partner: Paresh Sanders PhD, Phone: [phone] By: #### [address]OMOC[address], CERULOP, SPE, AMY SERUM, MERCURY, SHIRLEY, MIHIR, LYME AB wRFX, LEAD,ADULT, ZINC,PL, WEST ECHO, GH, ARSENIC, VITB6, RPR W RFX, METH, RA #### [facility] , #### HEPATIC, MCKENNA, ESR, AMM, HSCRP, A1C WTH eA, [id number], T3T, T4F, TSH3, PRL #### [facility] [address] [id number] USALyme, Total Ab with Reflexon 16-88-2442Ybyt Total Antibody NegativeNormalNegativeThe [facility] Physician GroupComment on above:Result Comment: Lyme antibodies not detected. Reflex testing is not indicated. No laboratory evidence of infection with B. burgdorferi (Lyme disease). Negative results may occur in patients recently infected (less than or equal to 14 days) with B. burgdorferi. If recent infection is suspected, repeat testing on a new sample collected in 7 to 14 days is recommended. Performed at: [address] [id number] Nursing Care Partner: Paresh Sanders PhD, Phone: [phone] By: #### [address]OC[address], CERULOP, SPE, AMY SERUM, MERCURY, SHIRLEY, MIHIR, LYME AB wRFX, LEAD,ADULT, ZINC,PL, WEST ECHO, GH, ARSENIC, VITB6, RPR W RFX, METH, RA #### [facility] , #### HEPATIC, MCKENNA, ESR, AMM, HSCRP, A1C WTH eA, [id number], T3T, T4F, TSH3, PRL #### [facility] [address] [place] [address] USAMercury Bloodon 99-24-0309Htqtwfj, Blood<1.5Tndtvs1.0-14.9 The [facility] Physician GroupComment on above:Result Comment: This test was developed and its performance characteristics determined by [employer]. It has not been cleared or approved by the Food and Drug Administration. Environmental Exposure: <15.0 Occupational Exposure: SUKUMAR - Inorganic Mercury: 15.0 Detection Limit = 1.0 Performed at: [address] [id number] Nursing Care Partner: Cyn Hodges MD, Phone: [phone] By: #### [address]OC[address], CERULOP, SPE, AMY SERUM, MERCURY, SHIRLEY, MIHIR, LYME AB wRFX, LEAD,ADULT, ZINC,PL, WEST ECHO, GH, ARSENIC, VITB6, RPR W RFX, METH, RA #### [facility] , #### HEPATIC, MCKENNA, ESR, AMM, HSCRP, A1C WTH eA, [id number], T3T, T4F, TSH3, PRL #### [address] Bell StreetMethylmalonic Acidon 11-67-7052Gptdttedeyfvn Ordl558Pssqck 0-378The [facility] GroupComment on above:Result Comment: This test was developed and its performance characteristics determined by [employer]. It has not been cleared or approved by the Food and Drug Administration. Performed at: [address] [id number] Nursing Care Partner: Cyn Hodges MD, Phone: [phone] By: #### CU #### [facility] ,Prolactinon 02-99-4421Ysjblcdsp56.72 ng/mLNormal2.74-19.64The [facility] GroupComment on above:Performed By: #### CU #### [facility] ,Prolactin [Mass/volume] in Serum or PlasmaOrdered By: Lonnie Major on 09-11-2022 Prolactin [Mass/Vol]15.72 ng/mL2.74-19.64[facility] Protein Electro, Random Urineon 26-28-1556Vpotmhx, Urine16.8 %Normal.The [facility] Physician GroupComment on above:Performed By: #### [address]OMOC[address], CERULOP, SPE, AMY SERUM, MERCURY, SHIRLEY, MIHIR, LYME AB wRFX, LEAD,ADULT, ZINC,PL, WEST ECHO, GH, ARSENIC, VITB6, RPR W RFX, METH, RA #### [facility] , #### HEPATIC, MCKENNA, ESR, AMM, HSCRP, A1C WTH eA, [id number], T3T, T4F, TSH3, PRL #### [facility] [address] [place] [address] [id number], Urine9.4 %Normal.[facility] Physician GroupComment on above:Performed By: #### [address], CERULOP, SPE, AMY SERUM, MERCURY, SHIRLEY, MIHIR, LYME AB wRFX, LEAD,ADULT, ZINC,PL, WEST ECHO, GH, ARSENIC, VITB6, RPR W RFX, METH, RA #### [facility] , #### HEPATIC, MCKENNA, ESR, AMM, HSCRP, A1C WTH eA, [id number], T3T, T4F, TSH3, PRL #### [facility] [address] [place] [id number], Urine6.9 %Normal.[facility] Physician GroupComment on above:Performed By: #### HOMOC[address], CERULOP, SPE, AMY SERUM, MERCURY, SHIRLEY, MIHIR, LYME AB wRFX, LEAD,ADULT, ZINC,PL, WEST ECHO, GH, ARSENIC, VITB6, RPR W RFX, METH, RA #### [facility] , #### HEPATIC, MCKENNA, ESR, AMM, HSCRP, A1C WTH eA, [id number], T3T, T4F, TSH3, PRL #### [facility] [address] [place], [place] [id number] USABeta Globulin, Urine43.3 %Normal.[facility] Center Physician GroupComment on above:Performed By: #### HOMOCYS PL, CERULOP, SPE, AMY SERUM, MERCURY, SHIRLEY, MIHIR, LYME AB wRFX, LEAD,ADULT, ZINC,PL, WEST ECHO, GH, ARSENIC, VITB6, RPR W RFX, METH, RA #### [facility] , #### HEPATIC, MCKENNA, ESR, AMM, HSCRP, A1C WTH eA, [id number], T3T, T4F, TSH3, PRL #### [place] [address] USAGamma Globulin, Urine23.5 %Normal.[facility] Physician GroupComment on above:Performed By: #### HOMOCYS PL, CERULOP, SPE, AMY SERUM, MERCURY, SHIRLEY, MIHIR, LYME AB wRFX, LEAD,ADULT, ZINC,PL, WEST ECHO, GH, ARSENIC, VITB6, RPR W RFX, METH, RA #### [facility] , #### HEPATIC, MCKENNA, ESR, AMM, HSCRP, A1C WTH eA, [id number], T3T, T4F, TSH3, PRL #### [place] [address] USAM-Gelacio %Not ObservedNormalNot ObservedThe [facility] Physician GroupComment on above:Performed By: #### HOMOCYS PL, CERULOP, SPE, AMY SERUM, MERCURY, SHIRLEY, MIHIR, LYME AB wRFX, LEAD,ADULT, ZINC,PL, WEST ECHO, GH, ARSENIC, VITB6, RPR W RFX, METH, RA #### [facility] , #### HEPATIC, MCKENNA, ESR, AMM, HSCRP, A1C WTH eA, [id number], T3T, T4F, TSH3, PRL #### [facility] [address] [place] [address] USAPlease Note:Normal.[facility] Physician GroupComment on above:Result Comment: Protein electrophoresis scan will follow via computer, mail, or admissions director delivery. PERFORMED BY: [place] [address] PATHOLOGIST ANALYTICAL STRATEGIST REJI GOLDSMITH M.D.Performed By: #### HOMOCYS PL, CERULOP, SPE, AMY SERUM, MERCURY, SHIRLEY, MIHIR, LYME AB wRFX, LEAD,ADULT, ZINC,PL, WEST ECHO, GH, ARSENIC, VITB6, RPR W RFX, METH, RA #### [facility] , #### HEPATIC, MCKENNA, ESR, AMM, HSCRP, A1C WTH eA, [id number], T3T, T4F, TSH3, PRL #### [facility] [address] [place] [id number] USAProtein (U) [Mass/Vol]mg/dLNormalNot Estab.[facility] Physician GroupComment on above:Result Comment: Verified by repeat analysis Performed By: #### HOMOCYS [address], CERULOP, SPE, AMY SERUM, MERCURY, SHIRLEY, MIHIR, LYME AB wRFX, LEAD,ADULT, ZINC,PL, WEST ECHO, GH, ARSENIC, VITB6, RPR W RFX, METH, RA #### [facility] , #### HEPATIC, MCKENNA, ESR, AMM, HSCRP, A1C WTH eA, [id number], T3T, T4F, TSH3, PRL #### [facility] [address] [place] [address] USAProtein Electrophoresis, Serumon 37-66-8535Brkwjkn [Mass/Vol]4.1 g/dLNormal2.9-4.4[facility] Physician GroupComment on above: Performed By: #### HOMOCYS PL, CERULOP, SPE, AMY SERUM, MERCURY, SHIRLEY, MIHIR, LYME AB wRFX, LEAD,ADULT, ZINC,PL, WEST ECHO, GH, ARSENIC, VITB6, RPR W RFX, METH, RA #### [facility] , #### HEPATIC, MCKENNA, ESR, AMM, HSCRP, A1C WTH eA, [id number], T3T, T4F, TSH3, PRL #### [facility] [address] [place], [place] [id number] USAAlbumin/Globulin [Mass ratio]1.7 {ratio}Normal0.7-1.7[facility] Physician GroupComment on above:Performed By: #### HOMOCYS PL, CERULOP, SPE, AMY SERUM, MERCURY, SHIRLEY, MIHIR, LYME AB wRFX, LEAD,ADULT, ZINC,PL, WEST ECHO, GH, ARSENIC, VITB6, RPR W RFX, METH, RA #### [facility] , #### HEPATIC, MCKENNA, ESR, AMM, HSCRP, A1C WTH eA, [id number], T3T, T4F, TSH3, PRL #### [place] [address] RCRWfiyv-4-Xlnrwqyz4.2 g/dLNormal0.0-0.4[facility] Physician GroupComment on above:Performed By: #### HOMOCYS PL, CERULOP, SPE, AMY SERUM, MERCURY, SHIRLEY, MIHIR, LYME AB wRFX, LEAD,ADULT, ZINC,PL, WEST ECHO, GH, ARSENIC, VITB6, RPR W RFX, METH, RA #### [facility] , #### HEPATIC, MCKENNA, ESR, AMM, HSCRP, A1C WTH eA, [id number], T3T, T4F, TSH3, PRL #### [place] [id number] WSXMdlre-3-Tckennnf5.7 g/dLNormal0.4-1.0[facility] Physician GroupComment on above:Performed By: #### HOMOCYS PL, CERULOP, SPE, AMY SERUM, MERCURY, SHIRLEY, MIHIR, LYME AB wRFX, LEAD,ADULT, ZINC,PL, WEST ECHO, GH, ARSENIC, VITB6, RPR W RFX, METH, RA #### [facility] , #### HEPATIC, MCKENNA, ESR, AMM, HSCRP, A1C WTH eA, [id number], T3T, T4F, TSH3, PRL #### [facility] [address] [place], [place] [id number] USABeta Globulin0.9 g/dLNormal0.7-1.3[facility] Physician GroupComment on above:Performed By: #### HOMOCYS [address], CERULOP, SPE, AMY SERUM, MERCURY, SHIRLEY, MIHIR, LYME AB wRFX, LEAD,ADULT, ZINC,PL, WEST ECHO, GH, ARSENIC, VITB6, RPR W RFX, METH, RA #### [facility] , #### HEPATIC, MCKENNA, ESR, AMM, HSCRP, A1C WTH eA, [id number], T3T, T4F, TSH3, PRL #### [place] [address] USAGamma Globulin0.6 g/dLNormal0.4-1.8[facility] Physician GroupComment on above:Performed By: #### HOMOCYS [address], CERULOP, SPE, AMY SERUM, MERCURY, SHIRLEY, MIHIR, LYME AB wRFX, LEAD,ADULT, ZINC,PL, WEST ECHO, GH, ARSENIC, VITB6, RPR W RFX, METH, RA #### [facility] , #### HEPATIC, MCKENNA, ESR, AMM, HSCRP, A1C WTH eA, [id number], T3T, T4F, TSH3, PRL #### [place] [address] USAGlobulin (S) [Mass/Vol]2.4 g/dLNormal2.2-3.9[facility] Physician GroupComment on above:Performed By: #### HOMOCYS PL, CERULOP, SPE, AMY SERUM, MERCURY, SHIRLEY, MIHIR, LYME AB wRFX, LEAD,ADULT, ZINC,PL, WEST ECHO, GH, ARSENIC, VITB6, RPR W RFX, METH, RA #### [facility] , #### HEPATIC, MCKENNA, ESR, AMM, HSCRP, A1C WTH eA, [id number], T3T, T4F, TSH3, PRL #### [place] [address] USAM-SpikeNot ObservedNormalNot ObservedThe [facility] Physician GroupComment on above:Performed By: #### HOMOCYS PL, CERULOP, SPE, AMY SERUM, MERCURY, SHIRLEY, MIHIR, LYME AB wRFX, LEAD,ADULT, ZINC,PL, WEST ECHO, GH, ARSENIC, VITB6, RPR W RFX, METH, RA #### [facility] , #### HEPATIC, MCKENNA, ESR, AMM, HSCRP, A1C WTH eA, [id number], T3T, T4F, TSH3, PRL #### [facility] [address] [place] [address] USAProtein [Mass/Vol]6.5 g/dLNormal6.0-8.5[facility] Physician GroupComment on above:Performed By: #### HOMOCYS [address], CERULOP, SPE, AMY SERUM, MERCURY, SHIRLEY, MIHIR, LYME AB wRFX, LEAD,ADULT, ZINC,PL, WEST ECHO, GH, ARSENIC, VITB6, RPR W RFX, METH, RA #### [facility] , #### HEPATIC, MCKENNA, ESR, AMM, HSCRP, A1C WTH eA, [id number], T3T, T4F, TSH3, PRL #### [facility] [address] [place] [address] USASPE-NoteNormal.[facility] Physician GroupComment on above:Result Comment: Protein electrophoresis scan will follow via computer, mail, or admissions director delivery. Performed at: [place] [id number] Nursing Care Partner: Paresh Sanders PhD, Phone: [phone] By: #### HOMOCYS PL, CERULOP, SPE, AMY SERUM, MERCURY, SHIRLEY, MIHIR, LYME AB wRFX, LEAD,ADULT, ZINC,PL, WEST ECHO, GH, ARSENIC, VITB6, RPR W RFX, METH, RA #### [facility] , #### HEPATIC, MCKENNA, ESR, AMM, HSCRP, A1C WTH eA, [id number], T3T, T4F, TSH3, PRL #### [facility] [address] [place] [address] USAProtein [Mass/volume] in Serum or PlasmaOrdered By: Lonnie Major on 75-40-6990Xviettz [Mass/Vol]6.3 g/dLLow6.4-8.9[facility] Butler HospitalComment on above:Performed By: #### HOMOCYS PL, CERULOP, SPE, AMY SERUM, MERCURY, SHIRLEY, MIHIR, LYME AB wRFX, LEAD,ADULT, ZINC,PL, WEST ECHO, GH, ARSENIC, VITB6, RPR W RFX, METH, RA #### [facility] , #### HEPATIC, MCKENNA, ESR, AMM, HSCRP, A1C WTH eA, [id number], T3T, T4F, TSH3, PRL #### [place] [address] USARPR w/rfx to Quant TP Abson [id number], Rfx Quant RPR Non-ReactiveNormalNon ReactiveThe [facility] Physician GroupComment on above: Result Comment: Performed at: [facility] [id number] Nursing Care Partner: Paresh Sanders PhD, Phone: [phone] PERFORMED BY: [place] [address] PATHOLOGIST ANALYTICAL STRATEGIST REJI GOLDSMITH M.D.Performed By: #### HOMOCYS [address], CERULOP, SPE, AMY SERUM, MERCURY, SHIRLEY, MIHIR, LYME AB wRFX, LEAD,ADULT, ZINC,PL, WEST ECHO, GH, ARSENIC, VITB6, RPR W RFX, METH, RA #### [facility] , #### HEPATIC, MCKENNA, ESR, AMM, HSCRP, A1C WTH eA, [id number], T3T, T4F, TSH3, PRL #### [place] [address] USARandom cortisol measurementOrdered By: Lonnie Major on 43-27-3500Rbhgepez [Mass/Vol]15.1 ug/dLTrihealth Bethesda Butler HospitalComment on above:Reference range: AM 6 - 24 ug/dl PM <10 ug/dlRheumatoid Factoron 21-47-5719Cqhnzmebin Kstpiu72.1Normal<14.0[facility] Physician GroupComment on above:Performed By: #### HOMOCYS PL, CERULOP, SPE, AMY SERUM, MERCURY, SHIRLEY, MIHIR, LYME AB wRFX, LEAD,ADULT, ZINC,PL, WEST ECHO, GH, ARSENIC, VITB6, RPR W RFX, METH, RA #### [facility] , #### HEPATIC, MCKENNA, ESR, AMM, HSCRP, A1C WTH eA, [id number], T3T, T4F, TSH3, PRL #### [facility] [address] [place] [id number] USASerum globulin measurement by calculation (mass/volume) Ordered By: Lonnie Pedrito on 02-68-5431Zyuvotwr (S) [Mass/Vol]1.7 g/dLLutheran HospitalComment on above:Performed By: #### HOMOCYS PL, CERULOP, SPE, AMY SERUM, MERCURY, SHIRLEY, MIHIR, LYME AB wRFX, LEAD,ADULT, ZINC,PL, WEST ECHO, GH, ARSENIC, VITB6, RPR W RFX, METH, RA #### [facility] , #### HEPATIC, MCKENNA, ESR, AMM, HSCRP, A1C WTH eA, [id number], T3T, T4F, TSH3, PRL #### [facility] [address] [place], [place] [id number] USASerum or plasma albumin/globulin mass ratioOrdered By: Lonnie Pedrito on 85-06-3855Bjmampm/Globulin [Mass ratio]2.7 {ratio}Lutheran HospitalComment on above:Performed By: #### HOMOCYS [address], CERULOP, SPE, AMY SERUM, MERCURY, SHIRLEY, MIHIR, LYME AB wRFX, LEAD,ADULT, ZINC,PL, WEST ECHO, GH, ARSENIC, VITB6, RPR W RFX, METH, RA #### [facility] , #### HEPATIC, MCKENNA, ESR, AMM, HSCRP, A1C WTH eA, [id number], T3T, T4F, TSH3, PRL #### [facility] [address] [id number] USASerum or plasma non-glucuronidated bilirubin measurement (mass/volume)Ordered By: Lonnie Major on 93-91-6933Peufluqoc.indirect [Mass/Vol]0.4 mg/dLTrihealth Bethesda Butler HospitalThalliumon 35-60-6151Mcygcczz<1.0Normal <5.0[facility] Physician GroupComment on above:Result Comment: Thallium concentrations greater than 300 ng/ml are consistent with acute toxicity. Urine is the preferred specimen for assessment of thallium exposure. Thallium analysis performed by inductively coupled plasma / mass spectrometry (ICP/MS). This test was developed and its performance characteristics determined by [facility]. It has not been cleared or approved by the Food and Drug Administration. Performed at: [facility] [address] [id number] Nursing Care Partner: Dolly [facility], Phone: [phone] PERFORMED BY: [place] [address] PATHOLOGIST ANALYTICAL STRATEGIST REJI GOLDSMITH M.D.Performed By: #### HOMOCYS PL, CERULOP, SPE, AMY SERUM, MERCURY, SHIRLEY, MIHIR, LYME AB wRFX, LEAD,ADULT, ZINC,PL, WEST ECHO, GH, ARSENIC, VITB6, RPR W RFX, METH, RA #### [facility] , #### HEPATIC, MCKENNA, ESR, AMM, HSCRP, A1C WTH eA, [id number], T3T, T4F, TSH3, PRL #### [facility] [address] [place] [address] USAThyrotropin [Units/volume] in Serum or PlasmaOrdered By: Lonnie Major on 79-61-4290YQP Qn3.20 m[IU]/LNormal0.45-5.33[facility] Butler HospitalComment on above:Performed By: #### HOMOCYS PL, CERULOP, SPE, AMY SERUM, MERCURY, SHIRLEY, MIHIR, LYME AB wRFX, LEAD,ADULT, ZINC,PL, WEST ECHO, GH, ARSENIC, VITB6, RPR W RFX, METH, RA #### [facility] , #### HEPATIC, MCKENNA, ESR, AMM, HSCRP, A1C WTH eA, [id number], T3T, T4F, TSH3, PRL #### [facility] [address] [place] [address] USAThyroxine (T4) free [Mass/volume] in Serum or Plasma Ordered By: Lonnie Major on 86-69-6006Fueb T4 [Mass/Vol]0.73 ng/dLNormal0.61-1.12 [facility] Butler HospitalComment on above:Performed By: #### HOMOCYS PL, CERULOP, SPE, AMY SERUM, MERCURY, SHIRLEY, MIHIR, LYME AB wRFX, LEAD,ADULT, ZINC,PL, WEST ECHO, GH, ARSENIC, VITB6, RPR W RFX, METH, RA #### [facility] , #### HEPATIC, MCKENNA, ESR, AMM, HSCRP, A1C WTH eA, [id number], T3T, T4F, TSH3, PRL #### [facility] [address] [place] [address] USATriiodothyronine (T3) Totalon 65-78-1518Vgdwucgdqjfxtmis (T3) Total0.97 ng/mLNormal0.87-1.78[facility] Physician GroupComment on above:Performed By: #### HOMOCYS [address], CERULOP, SPE, AMY SERUM, MERCURY, SHIRLEY, MIHIR, LYME AB wRFX, LEAD,ADULT, ZINC,PL, WEST ECHO, GH, ARSENIC, VITB6, RPR W RFX, METH, RA #### [facility] , #### HEPATIC, MCKENNA, ESR, AMM, HSCRP, A1C WTH eA, [id number], T3T, T4F, TSH3, PRL #### [facility] [address] [place] [address] USATriiodothyronine (T3) [Mass/volume] in Serum or Plasma Ordered By: Lonnie Major on 65-41-0429L3 [Mass/Vol]0.97 ng/mL0.87-1.78[facility] Butler HospitalVit. B12/Folate Profileon 20-05-5116Kiksyv70.5 ng/mL Normal>5.9The [facility] Systems GroupComment on above:Result Comment: Folate reference range: >5.9 ng/ml The WHO technical consultation on folate and vitamin b12 deficiencies has determined that folate concentrations less than 4 ng/ml are considered deficient.Performed By: #### HOMOCYS [address], CERULOP, SPE, MAY SERUM, MERCURY, SHIRLEY, MIHIR, LYME AB wRFX, LEAD,ADULT, ZINC,PL, WEST ECHO, GH, ARSENIC, VITB6, RPR W RFX, METH, RA #### [facility] , #### HEPATIC, MCKENNA, ESR, AMM, HSCRP, A1C WTH eA, [id number], T3T, T4F, TSH3, PRL #### [facility] [address] [place] [id number] [facility] HOSPITALVitamin B12 ser/plasOrdered By: Lonnie Major on 09-11-2022 Cobalamin (Vitamin B12) [Mass/Vol]263 pg/zJBbusls755-967UadtgnrgqTrihealth Bethesda Butler HospitalComment on above:Performed By: #### HOMOCYS PL, CERULOP, SPE, AMY SERUM, MERCURY, SHIRLEY, MIHIR, LYME AB wRFX, LEAD,ADULT, ZINC,PL, WEST ECHO, GH, ARSENIC, VITB6, RPR W RFX, METH, RA #### [facility] , #### HEPATIC, MCKENNA, ESR, AMM, HSCRP, A1C WTH eA, [id number], T3T, T4F, TSH3, PRL #### [facility] [address] [place] [id number] [facility] HOSPITALVitamin B6on 80-56-3970Dzoyhvv B611.9Ifgqgu7.4-65.2[facility] Physician GroupComment on above:Result Comment: This test was developed and its performance characteristics determined by [facility]. It has not been cleared or approved by the Food and Drug Administration. Deficiency: <3.4 Marginal: 3.4 - 5.1 Adequate: >5.1 Performed at: [address] [id number] Nursing Care Partner: Cyn Hodges MD, Phone: [phone] PERFORMED BY: [place] [address] PATHOLOGIST ANALYTICAL STRATEGIST REJI GOLDSMITH M.D.Performed By: #### CU #### [facility] ,West Nile Virus Antibodies, Son 47-38-6547Mxmm Nile Virus Antibody IgG S NegativeNormalNegativeThe [facility] Physician GroupComment on above:Result Comment: No detectable West Nile Virus IgG Antibody. If a recent infection is suspected, another specimen should be submitted for testing within 7-14 days.Performed By: #### HOMOC[address], CERULOP, SPE, AMY SERUM, MERCURY, SHIRLEY, MIHIR, LYME AB wRFX, LEAD,ADULT, ZINC,PL, WEST ECHO, GH, ARSENIC, VITB6, RPR W RFX, METH, RA #### [facility] , #### HEPATIC, MCKENNA, ESR, AMM, HSCRP, A1C WTH eA, [id number], T3T, T4F, TSH3, PRL #### [facility] [address] [place] [address] USAWest Nile Virus Antibody IgM SNegativeNormalNegativeThe [facility] Physician GroupComment on above:Result Comment: No detectable West Nile Virus IgM Antibody. If a recent infection is suspected, another specimen should be submitted for testing within 7-14 days. Performed at: [address] [id number] Nursing Care Partner: Cyn Hodges MD, Phone: [phone] By: #### HOMOCYS PL, CERULOP, SPE, AMY SERUM, MERCURY, SHIRLEY, MIHIR, LYME AB wRFX, LEAD,ADULT, ZINC,PL, WEST ECHO, GH, ARSENIC, VITB6, RPR W RFX, METH, RA #### [facility] , #### HEPATIC, MCKENNA, ESR, AMM, HSCRP, A1C WTH eA, [id number], T3T, T4F, TSH3, PRL #### [facility] [address] [place], [place] [id number] USAZinc, Plasmaon 68-30-3251Pnsg, Rhiloo40 ug/fXMzbied94-263 [facility] Physician GroupComment on above:Result Comment: This test was developed and its performance characteristics [facility]. It has not been cleared or approved by the Food and Drug Administration. Detection Limit = 5Performed By: #### CU #### [facility] ,Free T4on 32-16-3225Mbat T4 [Mass/Vol]0.79 ng/dLNormal0.58-1.64[facility] Rittman Medical CenterComment on above:Performed By: #### [id number], [id number] ####[facility] [address] [place], [place] [address] Freeon 82-12-9668Pyvw T3 [Mass/Vol]2.4 pg/mLInvalid Interpretation Code2.0-4.4[facility] Orthopaedic InstituteComment on above:Result Comment: Performed at: [facility] [id number] PhD Tommy YoderPerformed By: #### [id number], [id number] ####[facility] [address] [place], [place] [address]J[facility] Medicine Office/Clinic Noteon 40-47-5137Lgokms Medicine Office/Clinic NoteChief Complaint bilateral foot pain HPI Staff Khris is a 56 yo female who presents today for a DM check. Last a1c was in Apr at 6.6% Does check BS at home, ranging around 130-140s. States she has a pump and tries to keep BS at 130-140 range all day. Diet- claims she does not watch diet too much, just checks BS quite often. Exercise- pt is not getting any right now. Has questions about getting neuropathy in her feet. Is getting very painful and having difficulty walking. Does get minor paresthesia but has mostly pain. Pain is localized, no swelling, redness. Also claims she has not been feeling well since the last few weeks. Has nasal drainage/congestion. Denies ear ache, sore throat, fever. Has no SOB, but feels she is wheezing at HS. No V&D. Has been using nasal spray and gets some relief but not much. History of Present Illness I have reviewed and verified the staff HPI to be accurate for this encounter. Review of Systems ROS - Clinical Support GI Symptoms: None Cardiopulmonary Symptoms: None General Symptoms: None Genitourinary Symptoms: None Neuromuscular Symptoms: None Pain Symptoms: No Skin Symptoms: None PHQ Score Initial Depression Screen Score: 0 Constitutional: no fever, no chills, no sweats, no weakness Respiratory: no shortness of breath, no cough, no orthopnea, no wheezing Cardiovascular: no chest pain, no palpitations, no edema Additional ROS info: Except as noted in the above Review of Systems and in the History of Present Illness all other systems have been reviewed and are negative or noncontributory. Physical Exam Vitals & Measurements T: 36.6 ?C(Temporal Artery) HR: 68(Peripheral) BP: 104/68 SpO2: 98% HT: 64 in HT: 162 cm WT: 61 kg WT: 134.2 lb BMI: 23.24 General: alert, no acute distress Skin: warm, dry Head: no trauma, normocephalic Neck: Trachea midline, no adenopathy, no tenderness Eye: normal conjunctiva, sclera clear ENMT: TM's clear, oral mucosa moist, no pharyngeal erythema or exudate Cardiovascular: regular rate and rhythm, normal peripheral perfusion Respiratory: Lungs CTA, respirations non labored Chest wall: no deformity. Gastrointestinal: soft, non distended, no tenderness, no guarding. Back: No tenderness, Normal ROM, Normal alignment. Extremities: no deformity, no trauma Neurological: oriented x 4, LOC appropriate for age, CN II-XII intact, motor strength equal & normal bilaterally, sensation equal & normal bilaterally, speech normal Psychiatric: cooperative, affect appropriate for age, normal judgement, normal psychiatric thoughts. Diabetic Foot Exam Decreased Monofilament Sensation Foot: Left - Normal, Right - Normal Bunions/Foot Deformity: Left - Normal, Right - Normal Abnormal Pulse Foot: Left - Normal, Right - Normal Skin Lesions Foot: Left - Normal, Right - Normal Vibratory Sensation Foot: Left - Normal, Right - Normal Foot Exam Result: Normal foot exam Assessment/Plan 1. Type 1 diabetes mellitus (E10.9: Type 1 diabetes mellitus without complications) 2. Other specified hypothyroidism (E03.8: Other specified hypothyroidism) 3. Peripheral neuropathy (G62.9: Polyneuropathy, unspecified) BMI 23.0-23.9, adult (Z68.23: Body mass index [BMI] 23.0-23.9, adult) Diabetic neuropathy with neurologic complication (E11.40: Type 2 diabetes mellitus with diabetic neuropathy, unspecified) Former smoker (Z87.891: Personal history of nicotine dependence) Type 2 diabetes mellitus with other diabetic neurological complication (E11.49: Type 2 diabetes mellitus with other diabetic neurological complication) Follow-up No qualifying data available Problem List/Past Medical History Ongoing Arteriosclerotic cardiovascular disease (ASCVD) BMI less than 19,adult Combined hyperlipidemia Ds DNA antibody positive Hearing loss on left Hypertension Memory loss or impairment Menopausal state Moderate recurrent major depression Other specified hypothyroidism Panic attacks Peripheral artery disease Peripheral neuropathy PVD (peripheral vascular disease) Type 1 diabetes mellitus Vitamin B12 deficiency Vitamin D deficiency Historical No qualifying data Procedure/Surgical History Hernia, Hysterectomy, Tonsillectomy. Medications Accu-Chek Fast Clix Lancets, See Instructions, 3 refills amLODIPine 10 mg Tab, 10 mg= 1 tab(s), Oral, Daily, 5 refills amoxicillin 875 mg Tab, 875 mg= 1 tab(s), Oral, BID Aspirin Low Dose 81 mg oral tablet, chewable buPROPion 300 mg/24 hours ER Tab, 300 mg= 1 tab(s), Oral, Daily, 2 refills CeleBREX 100 mg Cap, 100 mg= 1 cap(s), Oral, BID, 1 refills cilostazol 100 mg Tab, 100 mg= 1 tab(s), Oral, BID clopidogrel 75 mg Tab, 75 mg= 1 tab(s), Oral, Daily, 1 refills cyclobenzaprine 10 mg Tab, 10 mg= 1 tab(s), Oral, TID, PRN, 1 refills desvenlafaxine 50 mg Tab- fenofibrate 145 mg Tab, 145 mg= 1 tab(s), Oral, Daily fluticasone Nasal 0.05 mg/inh Esperanza, 2 spray(s), Nasal, Daily gabapentin 300 (more content not included)...[facility] Comment on above:Result Comment: Electronically Signed By: Siri JOHNSON DO\.br\Date and Time Signed: 08/11/22 21:32 EDTConsultation Noteon 08-05-2022 Consultation [id number]:127NokaceySumma Health Wadsworth - Rittman Medical CenterRetail - Clinical Noteon 69-14-2735Psjsai - Clinical Note [id number]:127NormkaceySumma Health Wadsworth - Rittman Medical CenterCNOVon 77-88-8504FAYJNtdndq Visit (OTOLLN) KHRIS MCGOWAN ([id number]) 1965 F Date Time Provider Department 05/10/22 1:25 PM MAREK WEAVER During your visit today, we recorded the following information about you: Temperature 98.2 degrees Marek Weaver PA-C 05/10/2022 3:33 PM Signed [facility] NOTE CC: Khris Mcgowan is a 56 year old female who is seen at the request of Siri Johnson DO for evaluation of otalgia. My findings and recommendations will be communicated to the referring provider via the shared electronic medical record. ASSESSMENT: Chronic eczematous otitis externa of both ears (primary encounter diagnosis) Referred otalgia of both ears Tmj dysfunction Environmental and seasonal allergies PLAN: - Prescribed Elocon; counseled patient on medication, dose, route, side effects, and adverse reactions - Trial of Flonase; instructed patient on appropriate use, side effects and need for daily adherence to realize benefits - Aggressive allergy management, avoidance of allergic triggers, daily oral antihistamine, nasal saline rinses - Warm compress, gentle massage, analgesia as needed, soft diet advised, avoid clenching or grinding teeth; make appointment with a dentist who specializes in TMJ for further treatment, oral appliance if indicated - Patient declines hearing test during appointment today - Advised patient on red flag warning signs, symptoms that warrant immediate evaluation in ER - Follow up as clinically indicated Marek Weaver PA-C [facility] HPI: 56 year old female presents to clinic for evaluation of otalgia. Patient reports with 2 month history of sharp pain, deep in the left ear radiating down the neck and intermittent muffled hearing with itching of the ears and one episode of bleeding from the left ear. She saw her PCP who noted fluid behind her TM, but no infection. The PCP prescribed amoxicillin at the request of the patient and suggested assessment from ENT for possible tube placement. Patient presents today with persistent otalgia, ear itching and crackling when she pops her ears. She uses Qtips and francisca pins to itch her ears often. She states that she may have seasonal/environmental allergies and associated nasal congestion, but has not had formal allergy testing and does not take anything for this. She also notes some decreased hearing over the past two years stating that she often turns the TV volume up and ask her nephew to repeat himself often. She has a history of ear infections as a child and a TM rupture when 9 years old, but denies history of tube placement. She denies ear pressure, otorrhea, sinus pressure, and PND today. Past medical history: PAST MEDICAL HISTORY Diagnosis Date Diabetes mellitus (HCC) hyperlipidemia Menopause Pituitary adenoma (HCC) Past surgical history: PAST SURGICAL HISTORY Procedure Laterality Date DELIVERY ONLY 1985 , low cervical PAST SURGICAL HISTORY OF 1977 bowel blockages PAST SURGICAL HISTORY OF 2003 for bloating in abdmen TONSILLECTOMY AND ADENOIDECTOMY Tonsil/adenoidectomy TOTAL ABDOMINAL HYSTERECT W/WO RMVL TUBE OVARY 2000 Hysterectomy, COSMO Current medication(s): Current Outpatient Medications Medication Sig albuterol HFA (PROVENTIL HFA) 90 mcg/Actuation INHALATION inhaler Inhale 2 Puffs as instructed every 4 hours as needed (for shortness of breath and wheezing.). insulin aspart(NOVOLOG 100 UNIT/ML SUB-Q) SLIDING SCALE. 2UNITS WITH MEALS IF NEEDED pravastatin sodium(PRAVACHOL 20 MG TAB) Take one(1) tablet daily at bedtime. MOTRIN 800 MG TABLET 1 tab 3-5 times daily mometasone (ELOCON) 0.1 % ointment Apply to affected area once daily. fluticasone (FLONASE ALLERGY RELIEF) 50 mcg/actuation nasal spray Use 1 [place] in each nostril twice daily. cetirizine (ZYRTEC) 10 mg tablet Take 1 tablet by mouth once daily. varenicline (CHANTIX) 0.5 mg tablet Take 0.5 mg by mouth twice daily. (Patient not taking: Reported on 05/10/2022) PREMARIN 1.25 MG ORAL TAB 1 tb qd (Patient not taking: Reported on 05/10/2022) No current facility-administered medications for this visit. Allergies: ALLERGIES Allergen Reactions Latex Rash, Hives, Itching Social history: Social History Tobacco Use Smoking status: Former Packs/day: 0.75 Years: 15.00 Pack years: 11.25 Types: Cigarettes Substance Use Topics Alcohol use: Yes Comment: occ-maybe one beer a month Drug use: No Family history: FAMILY HISTORY Problem Relation Age of Onset Alcohol/Drug Brother Alcohol/Drug Sister Asthma Father Diabetes Sister Coronary Artery Disease Sister Coronary Artery Disease Maternal Grandfather Diabetes Maternal Grandfather Hypertension Mother Ischemic Heart Disease Sister Ischemic Heart Disease Maternal Grandfather of heart at (more content not included)...[facility] for Release of Medical Recordson 06-17-2314Ivwe for Release of Medical [id number]#1.00CD:127NoSelect Medical Specialty Hospital - ColumbusCoding Summary.on 65-85-0027Azkjvh Summary. CD:[id number]+PGhlYWQ+[id number] WF9NJurR1WnnyKg [file] YXBz (more content not included)...NormalSumma Health Wadsworth - Rittman Medical CenterAuto Diffon 54-15-5576Bvdmhmalj/100 WBC (Bld)0.9 %Normal0.0-2.0[facility] Comment on above:Order Comment: Order Added by Discern Expert.Performed By: #### 3362426, 13952308, 2722362, 7576774, 2248187, 071970611, 7005068 ####[facility] [address] [place] [address] Basophils/Leukocytes Auto (Bld) [Pure # fraction]0.0 E9/LNormal0.0-0.2[facility] CenterComment on above:Order Comment: Order Added by Discern Expert.Performed By: #### 7024756, 47844694, 2373761, 3597745, 5469158, 884572518, 8989974 ####[facility] [address] [place], [place] [address]Bhlfwbpljfl/100 WBC (Bld)2.7 %Normal0.0-8.0[facility] Rittman Medical CenterComment on above:Order Comment: Order Added by Discern Expert. Performed By: #### 9142446, 84937504, 5402492, 2167227, 9656896, 053888061, 7461695 ####[address] [place], [place] [address]Euapqatnmip/Leukocytes Auto (Bld) [Pure # fraction]0.1 E9/LNormal0.0-0.5 [facility] Ritt[facility] Medical CenterComment on above:Order Comment: Order Added by Discern Expert.Performed By: #### 8299322, 19975834, 8226331, 6465086, 2534422, 328068117, 3433119 ####[address] [address]Rqxguetewzo/100 WBC (Bld)43.5 %Pzwhqr18.0-50.0[facility] Rittman Medical CenterComment on above:Order Comment: Order Added by Discern Expert. Performed By: #### 1785613, 17219165, 9560566, 6502966, 3198252, 425485006, 7147322 ####[address] [place], [place] [address]Ssryyicgqaj/Leukocytes Auto (Bld) [Pure # fraction]1.9 E9/LNormal1.0-4.0 [facility]itt[facility] Medical CenterComment on above:Order Comment: Order Added by Discern Expert.Performed By: #### 0296537, 21271404, 0542796, 8262038, 6399586, 268782776, 5706223 ####[address] [address]Imnxnpxqb/100 WBC (Bld)5.5 %Normal4.0-14.0[facility]itt[facility] Medical CenterComment on above:Order Comment: Order Added by Discern Expert. Performed By: #### 2035313, 81990669, 4875710, 1772122, 2043586, 627305595, 3987880 ####[address] [place], [place] [address]Rvbxwdyvv/Leukocytes Auto (Bld) [Pure # fraction]0.2 E9/LNormal0.2-1.0 [facility]itt[facility] Medical CenterComment on above:Order Comment: Order Added by Discern Expert.Performed By: #### 7446341, 03670812, 0986455, 4551581, 4274522, 169292822, 6429975 ####[address] [address]Qhimnzqzoje/100 WBC (Bld)47.4 %Quxbxn20.0-75.0[facility]itt[facility] Medical CenterComment on above:Order Comment: Order Added by Discern Expert. Performed By: #### 6628474, 26940038, 8562565, 5498597, 7714260, 816874941, 3133464 ####[address] [address]Pitmogdaycf/Leukocytes Auto (Bld) [Pure # fraction]2.1 E9/LNormal2.0-7.5 [facility] Medical CenterComment on above:Order Comment: Order Added by Discern Expert.Performed By: #### 5696635, 31149601, 3023619, 3189039, 9350848, 993742454, 4696237 ####[address] [place], [place] [address]SAL w/ Auto Diffon 63-45-2131Ebhlbtuzski distribution width (RBC) [Ratio]14.1 %Fzfbcw23.9-14.2FMartins Ferry HospitalComment on above: Performed By: #### 9718682, 11266180, 1383513, 4586287, 1784695, 616708658, 0209721 ####[facility] [address] [place] [address]Gdvzvsyopz (Bld) [Volume fraction]44.9 %Wqdtax31.0-46.0[facility]itt[facility] Medical CenterComment on above:Performed By: #### 7421660, 11384255, 0395997, 0457536, 5174322, 165821145, 1921598 ####[address] [address]Zgicovlcbn (Bld) [Mass/Vol]15.2 g/yXGprhxh36.0-16.0 [facility] Medical CenterComment on above:Performed By: #### 4558605, 52082661, 1808274, 2359025, 7755042, 727818258, 8625305 ####[address] [address]UOC (RBC) [Entitic mass]32.2 meYxmsqu23.0-34.0[facility]itt[facility] Medical CenterComment on above:Performed By: #### 9660405, 27472704, 9771377, 9868989, 6771933, 562740816, 7938104 ####[address] [address]EWKI (RBC) [Mass/Vol]33.9 g/wQZbdkwb02.4-36.0[facility]itt[facility] Medical CenterComment on above: Performed By: #### 4151184, 64907582, 9919433, 6305299, 1898633, 678035860, 7615414 ####[address] [address]HYY (RBC) [Entitic vol]95.1 uRHydmyz97.0-100.0[facility] Comment on above:Performed By: #### 7835705, 88639446, 8469935, 5556064, 1367484, 160089203, 9723808 ####[address] [address]Nasmmldf mean volume (Bld) [Entitic vol]8.2 fL Normal6.4-10.8[facility]itt[facility] Medical CenterComment on above:Performed By: #### 2912612, 98776437, 9839171, 8737370, 2902600, 006701430, 6510134 ####[facility] [address] [place] [address]Wspukjszt (Bld) [#/Vol]327.0 E9/UElshhz234.0-500.0[facility]itt[facility] Medical CenterComment on above: Performed By: #### 5347373, 58520397, 6062249, 6197453, 7234387, 785834210, 7588105 ####[address] [address]HUS (Bld) [#/Vol]4.7 E12/LNormal4.3-5.9[facility]itt[facility] Medical CenterComment on above:Performed By: #### 0143788, 61261742, 4555594, 5837058, 2819153, 785649299, 8238557 ####[address] [address]DQU corrected for nucl RBC Auto (Bld) [#/Vol]4.5 E9/LNormal 4.0-11.0[facility] Medical CenterComment on above:Performed By: #### 0221584, 06004939, 8534509, 4191752, 5871866, 797173848, 4889353 ####[address] [address]OPVwq 29-81-6123Iggvyte [Mass/Vol]4.2 g/dLNormal3.3-5.0[facility]itt[facility] Medical CenterComment on above: Performed By: #### 1477198, 94435688, 7073445, 9273299, 2548725, 654549591, 2738741 ####[address] [address]/Globulin (S) [Mass conc ratio]1.8Vcvevl4.1-2.2[facility]ani Medical CenterComment on above:Performed By: #### 1400337, 01330909, 2681095, 6702109, 7245646, 701016393, 2285634 ####[address] [place], [place] [address]FTC [Catalytic activity/Vol]98 Int._Unit/LNormal 21-98[facility]itt[facility] Medical CenterComment on above:Performed By: #### 6536536, 40452509, 9223436, 7014223, 3373804, 119564165, 1137240 ####[address] [address]VVF No additional P-5'-P [Catalytic activity/Vol]20 Int._Unit/LNormal6-46[facility] Comment on above:Performed By: #### 7890495, 35584931, 2382865, 2978824, 9034336, 058034800, 8201097 ####[address] [address]Mcroa gap [Moles/Vol]14 mmol/LNormal6-16[facility] Medical CenterComment on above:Performed By: #### 8588921, 56858470, 0576165, 7966632, 9484757, 804523096, 3232393 ####[address] [address]NKV [Catalytic activity/Vol]22 Int._Unit/LNormal5-43[facility] Medical CenterComment on above:Performed By: #### 4993296, 15656705, 8421923, 1635827, 5273800, 894670503, 8199950 ####[address] [address]Ymkqenhjc [Mass/Vol]0.4 mg/dLNormal0.0-1.1FMartins Ferry HospitalComment on above: Performed By: #### 7869915, 41373612, 5879814, 6567185, 8634061, 505069640, 8510720 ####[facility] [address] [place], [place] [address]Kvvlxzp [Mass/Vol]9.0 mg/dLNormal8.9-11.1FMartins Ferry HospitalComment on above:Performed By: #### 6355233, 38205283, 7915736, 2383103, 0302745, 394398874, 3715701 ####[facility] [address] [place], [place] [address]Mkwpwlht [Moles/Vol]98 mmol/TOiv212-727XkysqeSumma Health Wadsworth - Rittman Medical CenterComment on above:Performed By: #### 6239796, 22489035, 8051751, 3185291, 6591554, 176060775, 3347806 ####[facility] [address] [place], [place] [address]HR3 [Moles/Vol]27 mmol/TVmljgv25-73KdnxkkSumma Health Wadsworth - Rittman Medical CenterComment on above:Performed By: #### 6295130, 04493320, 0282235, 7683923, 4845814, 554005641, 1184137 ####[address] [address]Hemsftiqvm [Mass/Vol]0.9 mg/dLNormal 0.5-1.3FMartins Ferry HospitalComment on above:Performed By: #### 1601853, 63658225, 8207064, 2790081, 1247798, 618955623, 9005563 ####[facility] [address] [place] [address]Ajpaccvk (S) [Mass/Vol]3.1 g/dLNormal1.4-4.0[facility] Medical CenterComment on above:Performed By: #### 3336423, 33892579, 6243966, 0150541, 6592572, 987266253, 3965631 ####[facility] [address] [place], [place] [address]Xlllhgj [Mass/Vol]135 mg/gVByfjvj21-717BxcyvjSumma Health Wadsworth - Rittman Medical CenterComment on above: Result Comment: If this glucose result represents a fasting glucose, interpretation should refer tothe following reference range: 55-99 mg/dL Performed By: #### 3003320, 93284803, 0632196, 0947230, 3406760, 155251115, 0964083 ####[facility] [address] [place], [place] [address]Tqjdvqnmc [Moles/Vol]3.7 mmol/LNormal3.5-5.3FMartins Ferry Hospital Comment on above:Performed By: #### 3027851, 57377543, 8216633, 3495003, 4866838, 141911151, 4620261 ####[facility] [address] [place] [address]Rokaplt [Mass/Vol]7.3 g/dLNormal6.0-7.8[facility] Medical CenterComment on above:Performed By: #### 8236744, 81091115, 4120556, 4251547, 6663877, 604922099, 7782282 ####[facility] [address] [place] [address]Dlcqxh [Moles/Vol]135 mmol/LNormal 135-145[facility]itt[facility] Medical CenterComment on above:Performed By: #### 4074486, 90289563, 1444526, 4102699, 3496022, 485121592, 8468274 ####[facility] [address] [place], [place] [address]Wvfl nitrogen [Mass/Vol]10 mg/dLNormal5-21[facility]itt[facility] Medical CenterComment on above:Performed By: #### 2830694, 17927055, 3662146, 7207588, 7627214, 121035247, 6049155 ####[facility] [address] [place], [place] [address]Traq nitrogen/Creatinine [Mass ratio]11 No SuljqSzybzg86-22SknfujSumma Health Wadsworth - Rittman Medical CenterComment on above:Performed By: #### 9962530, 98865379, 2966961, 6803743, 5074052, 640314057, 4550712 ####[facility] [address], [place] [address]Yhcmfzm for Treatmenton 87-43-6067Cvewsow for [id number]#1.00CD:127NormalSumma Health Wadsworth - Rittman Medical CenterHgbA1con 26-51-8650NlJ2k (Bld) [Mass fraction]6.6 %High<=5.9[facility] Ritt[facility] Medical CenterComment on above:Performed By: #### 8801163, 23901441, 8920111, 0129670, 8315978, 764484618, 8817175 ####[facility] [address]Norwhite [place], [place] [address]Ihcvy Panelon 08-24-2488Zinwnwiwqih [Mass/Vol]191 mg/oVAnhirs049-512TsbodqSumma Health Wadsworth - Rittman Medical CenterComment on above: Performed By: #### 2706175, 55425612, 0257418, 5759921, 1561074, 181262114, 8611016 ####[facility] [address], [place] [address]Sxhoomdfjtk in HDL [Mass/Vol]106 mg/dLInvalid Interpretation CodeSumma Health Wadsworth - Rittman Medical CenterComment on above:Result Comment: HDL > or equal to 60 mg/dL: Low cardiovascular risk HDL < 40 mg/dL : High cardiovascular riskPerformed By: #### 5913985, 39785511, 7068103, 5418847, 9815224, 691371055, 0399131 ####[facility] [address], [place] [address]Aputpftqyxq in LDL [Mass/Vol]56 mg/dL Normal<=129[facility]itt[facility] Medical CenterComment on above:Performed By: #### 9720626, 13155401, 1781579, 5940344, 9994825, 431568627, 5065024 ####[facility] [address], [place] [address]Zppfnmrgsps in VLDL [Mass/Vol]27 mg/dLNormal7-40[facility] Medical CenterComment on above: Performed By: #### 1842551, 61133070, 7339044, 6463402, 4243470, 441056130, 3018706 ####[facility] [address] [place], [place] [address]Rftqxbolupqc [Mass/Vol]135 mg/dLNormal<=149[facility] Comment on above:Performed By: #### 8952627, 51767518, 6479955, 3274757, 6204961, 275700728, 3577522 ####[facility] [address] [place], [place] [address]MCIso 92-62-2538DKW Qn3.39 m[IU]/LNormal0.34-5.60 [facility] CenterComment on above:Performed By: #### 8963859, 87157220, 5480790, 5645600, 6890248, 902372029, 8871862 ####[facility] [address] [place], [place] [address]qDPGdl 02-55-4349BAX/1.73 sq M.predicted among blacks MDRD (S/P/Bld) [Vol rate/Area]mL/min/{1.73_m2}Normal >=59[facility] Ritt[facility] Medical CenterComment on above:Order Comment: Order added by Discern Expert.Result Comment: eGFR is race adjusted. AA=. Performed By: #### 0698220, 25920454, 2904516, 2217615, 0223541, 565968450, 7156911 ####[facility] [address] [place], [place] [address]APK/1.73 sq M.predicted among non-blacks MDRD (S/P/Bld) [Vol rate/Area] mL/min/{1.73_m2}Normal>=59[facility] Medical CenterComment on above:Order Comment: Order added by Discern Expert.Result Comment: Chronic kidney disease could be indicated at eGFR's of less than 60 mL/min/1.73m2. Kidney failure is indicated at less than 15 mL/min/1.73m2.Performed By: #### 4595490, 20407502, 9398494, 2268786, 1525817, 610426733, 6642035 ####[facility] [address] [place], [place] [address]Wcyhsqcgh Referralon 04-12-2022 Physician [id number]:127Normal [facility] CenterPhysician Referral [id number]:127NormalSelect [facility] Medicine Office/Clinic Noteon 72-20-6086[facility] Medicine Office/Clinic NoteHPI Staff Khris is a 56 year old female who presents with C/O left ear pain. This has been a concern for about 1 week. She has had some sinus congestion. Denies fever, chills, sore throat, cough, SOB, nausea,vomiting, or diarrhea. She has also had swollen, painful glands under the ear. C/O occasional dizziness, headaches, and clear discharge from the ear. She has not tried anything for relief. She has a chronic history of DM. Patient monitors blood sugars at home 6 -7 times daily. Average blood sugar 184. Last ophthalmology exam was over 2 years ago. - DUE She follows with podiatry, Dr. Braga, every 2 months. Last A1C was 7.4 on 04/11/21. Microalbumin completed last on 04/11/21. Current medications include Novolog, taking as directed without adverse reactions. Patient denies frequent urination, excessive thirst, blurred vision, numbness. She has a chronic history of neuropathy and takes Gabapentin for this. History of Present Illness I have reviewed and verified the staff HPI to be accurate for this encounter. Review of Systems PHQ Score Initial Depression Screen Score: 0 Constitutional: no fever, no chills, no sweats, no weakness Respiratory: no shortness of breath, no cough, no orthopnea, no wheezing Cardiovascular: no chest pain, no palpitations, no edema Additional ROS info: Except as noted in the above Review of Systems and in the History of Present Illness all other systems have been reviewed and are negative or noncontributory. Physical Exam Vitals & Measurements HR: 88(Peripheral) BP: 136/68 SpO2: 95% HT: 64 in HT: 162 cm WT: 54.4 kg WT: 119.68 lb BMI: 20.73 General: alert, no acute distress ENMT: TM's clear, oral mucosa moist, no pharyngeal erythema or exudate Cardiovascular: regular rate and rhythm, normal peripheral perfusion Respiratory: Lungs CTA, respirations non labored Extremities: no deformity, no trauma Neurological: oriented x 4, LOC appropriate for age, CN II-XII intact, motor strength equal & normal bilaterally, sensation equal & normal bilaterally, speech normal Assessment/Plan 1. Left ear pain (H92.02: Otalgia, left ear) possibly serous otitis. rx amoxil 2. Moderate recurrent major depression (F33.1: Major depressive disorder, recurrent, moderate) moods stable on current regimen 3. PVD (peripheral vascular disease), (I73.9: Peripheral vascular disease, unspecified)Peripheral artery disease has improved post by-pass 5. Type 1 diabetes mellitus (E10.9: Type 1 diabetes mellitus without complications) pump managed 6. Memory loss or impairment (R41.3: Other amnesia) will send to neurology. 7. Hearing loss on left (H91.92: Unspecified hearing loss, left ear) send to audiology Follow-up With When Contact Information Siri JOHNSON DO, FAM In 6 months [address] [place] [address]- Additional Instructions: Problem List/Past Medical History Ongoing Arteriosclerotic cardiovascular disease (ASCVD) BMI less than 19,adult Combined hyperlipidemia Ds DNA antibody positive Hearing loss on left Hypertension Left ear pain Memory loss or impairment Menopausal state Moderate recurrent major depression Other specified hypothyroidism Panic attacks Peripheral artery disease PVD (peripheral vascular disease) Rash and other nonspecific skin eruption SOB (shortness of breath) Type 1 diabetes mellitus Vitamin B12 deficiency Vitamin D deficiency Historical No qualifying data Procedure/Surgical History Hernia, Hysterectomy, Tonsillectomy. Medications Accu-Chek Fast Clix Lancets, See Instructions, 3 refills amLODIPine 10 mg Tab, 10 mg= 1 tab(s), Oral, Daily, 5 refills amoxicillin 875 mg Tab, 875 mg= 1 tab(s), Oral, BID Aspirin Low Dose 81 mg oral tablet, chewable buPROPion 300 mg/24 hours ER Tab, 300 mg= 1 tab(s), Oral, Daily, 2 refills cilostazol 100 mg Tab, 100 mg= 1 tab(s), Oral, BID clopidogrel 75 mg Tab, 75 mg= 1 tab(s), Oral, Daily, 1 refills cyclobenzaprine 10 mg Tab, 10 mg= 1 tab(s), Oral, TID, PRN, 1 refills desvenlafaxine 50 mg Tab- fenofibrate 145 mg Tab, 145 mg= 1 tab(s), Oral, Daily gabapentin 100 mg Cap Glucometer, See Instructions ibuprofen 800 mg Tab, 800 mg= 1 tab(s), Oral, q6hr, 1 refills ketoconazole topical 1% shampoo, 1 joseph, Topical, q3day LORazepam 0.5 mg Tab Metoprolol tartrate 25 mg Tab, 12.5 mg= 0.5 tab(s), Oral, BID, 3 refills niacin 500 mg ER Tab., 500 mg= 1 cap(s), Oral, Once a day (at bedtime) NIFEdipine (Eqv-Procardia XL) 30 mg oral tablet, extended release, 30 mg= 1 tab(s), Oral, Daily, 2 refills NovoLOG 100 units/mL injectable solution, See Instructions, 5 refills rosuvastatin 40 mg Tab, 40 mg= 1 tab(s), Oral, Daily, 1 refills TRUE METRIX GLUCOSE TEST STRIP valacyclovir 500 mg Tab, 500 mg= 1 tab(s), Oral, q12hr Ventolin HFA 90 mcg/inh Aerosol, 2 puff(s), Inhalation, q4hr, PRN, 11 refills VITAMIN D3 2,000 UNIT SOFTGEL Vitamin D3 2000 intl units oral tablet, 50 m (more content not included)... [facility] HospitalComment on above:Result Comment: Electronically Signed By: Siri JOHNSON DO\.grace\Date and Time Signed: 04/02/22 17:48 EST Retail - Clinical Noteon 97-14-4522Ulytjd - Clinical Note [id number]#1.00CD:127NormBucyrus Community HospitalConsultation Noteon 93-67-8176Isapcpctzmbi Note [id number]#1.00CD:127[facility] HospitalRetail - Clinical Noteon 83-94-2555Fenfjq - Clinical Note [id number]#1.00CD:127[facility]Select [facility] Medicine Office/Clinic Noteon 38-40-9553Qbqrrr Medicine Office/Clinic NoteHPI Staff Khris is a 56 year old female who presents with C/O rash. States this has been a concern for several weeks. Rash is itchy and composed of several small sores all over her body and scalp. States she has had a similar fungal rash in the past and was treated with Lamisil. She has not tried using anything OTC for relief. History of Present Illness I have reviewed and verified the staff HPI to be accurate for this encounter. Review of Systems PHQ Score Initial Depression Screen Score: 0 Constitutional: no fever, no chills, no sweats, no weakness Respiratory: no shortness of breath, no cough, no orthopnea, no wheezing Cardiovascular: no chest pain, no palpitations, no edema Additional ROS info: Except as noted in the above Review of Systems and in the History of Present Illness all other systems have been reviewed and are negative or noncontributory. Physical Exam Vitals & Measurements T: 36.2 ?C(Temporal Artery) HR: 77(Peripheral) BP: 122/80 SpO2: 98% HT: 64 in HT: 162 cm General: alert, no acute distress Skin: Diffuse fungal rash. Cardiovascular: regular rate and rhythm, normal peripheral perfusion Respiratory: Lungs CTA, respirations non labored Extremities: no deformity, no trauma. DP 2+ Neurological: oriented x 4, LOC appropriate for age, CN II-XII intact, motor strength equal & normal bilaterally, sensation equal & normal bilaterally, speech normal Assessment/Plan 1. Rash and other nonspecific skin eruption (R21: Rash and other nonspecific skin eruption) She has responded to the antifungal in the past. Will restart. AST/ALT check in 2 weeks 2. PVD (peripheral vascular disease) (I73.9: Peripheral vascular disease, unspecified) Pulses palpable. Orders: ketoconazole topical, 1 joseph, Topical, q3day, 210 mL, Refill(s) 0, [facility]/pharmacy #[id number], 162, cm, 12/26/21 15:24:00 EDT, Height/Length Dosing, 50.6, kg, 08/09/21 13:07:00 EDT, Weight Dosing [facility] Prescription, Accu-Chek Glucose Testing Strips, See Instructions, 300 EA, 11, Use as directed.DX: E11.65 Testing 10 times daily, [facility]/pharmacy #[id number], Supply, 162, cm, 08/09/21 13:07:00 EDT, Height/Length Dosing, 50.6, kg, 08/09/21 13:07:00 EDT, Weight Dosing nystatin, 500,000 unit(s) = 5 mL, Oral, QID, X 14 day(s), # 280 mL, Refills(s) 0, [id number] 162, cm, 12/26/21 15:24:00 EDT, Height/Length Dosing, 50.6, kg, 08/09/21 13:07:00 EDT, Weight Dosing terbinafine, 250 mg = 1 tab(s), Oral, Daily, X 14 day(s), # 14 tab(s), Refills(s) 2, [id number] 162, cm, 12/26/21 15:24:00 EDT, Height/Length Dosing, 50.6, kg, 08/09/21 13:07:00 EDT, Weight Dosing Follow-up With When Contact Information Siri JOHNSON DO, FAM Only if needed [address] [place] [phone]- Additional Instructions: Problem List/Past Medical History Ongoing Arteriosclerotic cardiovascular disease (ASCVD) BMI less than 19,adult Combined hyperlipidemia Ds DNA antibody positive Gangrene of toe of left foot Hypertension Menopausal state Moderate recurrent major depression Other specified hypothyroidism Panic attacks Peripheral artery disease PVD (peripheral vascular disease) Rash and other nonspecific skin eruption SOB (shortness of breath) Superficial femoral artery occlusion Type 1 diabetes mellitus Vitamin B12 deficiency Vitamin D deficiency Historical No qualifying data Procedure/Surgical History Hernia, Hysterectomy, Tonsillectomy. Medications Accu-Chek Fast Clix Lancets, See Instructions, 3 refills Aspirin Low Dose 81 mg oral tablet, chewable buPROPion 300 mg/24 hours ER Tab, 300 mg= 1 tab(s), Oral, Daily, 2 refills cilostazol 100 mg Tab, 100 mg= 1 tab(s), Oral, BID clopidogrel 75 mg Tab, 75 mg= 1 tab(s), Oral, Daily, 1 refills cyclobenzaprine 10 mg Tab, 10 mg= 1 tab(s), Oral, TID, PRN, 1 refills desvenlafaxine 50 mg Tab- fenofibrate 145 mg Tab, 145 mg= 1 tab(s), Oral, Daily gabapentin 100 mg Cap Glucometer, See Instructions ibuprofen 800 mg Tab, 800 mg= 1 tab(s), Oral, q6hr, 1 refills ketoconazole topical 1% shampoo, 1 joseph, Topical, q3day LamISIL 250 mg Tab, 250 mg= 1 tab(s), Oral, Daily, 2 refills LORazepam 0.5 mg Tab Metoprolol tartrate 25 mg Tab, 12.5 mg= 0.5 tab(s), Oral, BID, 3 refills niacin 500 mg ER Tab., 500 mg= 1 cap(s), Oral, Once a day (at bedtime) NIFEdipine (Eqv-Procardia XL) 30 mg oral tablet, extended release, 30 mg= 1 tab(s), Oral, Daily, 2 refills NovoLOG 100 units/mL injectable solution, See Instructions, 5 refills nystatin 100,000 units/mL oral suspension, 055403 unit(s)= 5 mL, Oral, QID rosuvastatin 40 mg Tab, 40 mg= 1 tab(s), Oral, Daily, 1 refills TRUE METRIX GLUCOSE TEST STRIP Ventolin HFA 90 mcg/inh Aerosol, 2 puff(s), Inhalation, q4hr, PRN, 11 refills VITAMIN D3 2,000 UNIT SOFTGEL Vitamin D3 2000 intl units oral tablet, 50 mcg= 1 tab(s), Oral, Daily, 3 refills Xarelto 2.5 mg oral tablet Allergies benazepril (Unknown, Cough) meperidine (Un (more content not included)...[facility] Comment on above:Result Comment: Electronically Signed By: Siri JOHNSON DO\.br\Date and Time Signed: 12/26/21 15:48 EDTCoding Summary.on 58-72-3012Iopbjt Summary. CD:[id number] WF4QQyjP9ZpmtXc [file] YXBz (more content not included)...NormalSumma Health Wadsworth - Rittman Medical CenterConsent for Treatmenton 98-41-8704Oznitel for Treatment [id number]#1.00CD:127NormalSumma Health Wadsworth - Rittman Medical CenterLaboratory - Chemistry and Chemistry - challengeon 81-29-6985Hzhwxdqxtop [Mass/Vol]96 mg/dLNormal<=129MP-[facility] 600 DO Work Phone: [phone] [Mass/Vol]224 mg/dLabove high threshold 956-294FQ-UfrchMonticello Hospital 600 DO Work Phone: [phone] in LDL [Mass/Vol]9 mg/iTUgdqnq1-36OD-HqpsdMonticello Hospital 600 DO Work Phone: Lipid Panelon 63-00-0913Qwgoemoxket [Mass/Vol]224 mg/fXNttn100-382MctojnSumma Health Wadsworth - Rittman Medical CenterComment on above:Performed By: #### [id number] ####[facility] [address] [place], [place] [address]Lekpyrenomg in HDL [Mass/Vol]107 mg/dLInvalid Interpretation CodeSumma Health Wadsworth - Rittman Medical CenterComment on above:Result Comment: HDL > or equal to 60 mg/dL: Low cardiovascular risk HDL < 40 mg/dL : High cardiovascular riskPerformed By: #### [id number] ####[facility] [address] [place], [place] [address]Cvwvhasxuqb in LDL [Mass/Vol]96 mg/dLNormal<=129Summa Health Wadsworth - Rittman Medical CenterComment on above: Performed By: #### [id number] ####[facility] [address] [place], [place] [address]Bknglzlkins in VLDL [Mass/Vol]9 mg/dLNormal7-40 [facility] - Rittman Medical CenterComment on above:Performed By: #### [id number] ####[facility] [address] [place] [address] Triglyceride [Mass/Vol]43 mg/dLNormal<=149Summa Health Wadsworth - Rittman Medical CenterComment on above:Performed By: #### [id number] ####[facility] [address] [place], [place] [address]Ah Panel Informationon mg/dLNormal <=149-[facility] 600 DO Work Phone: [phone] mg/dLMP-[facility] 600 DO Work Phone: Comment on above:HDL > or equal to 60 mg/dL: Low cardiovascular riskHDL < 40 mg/dL : High cardiovascular riskPhysician Orderon [id number] [id number]#1.00CD:127 [facility] HospitalConsultation Noteon 74-68-4986Ojccvjhjsyhe Note [id number]#1.00CD:127[facility] HospitalOffice Visit (Cardiology)on 96-82-5735Caticw-up visitDiagnoses/Problems Assessed PVD (peripheral vascular disease) (443.9) (I73.9) Benign essential hypertension (401.1) (I10) Diabetes mellitus (250.00) (E11.9) Body mass index (BMI) of 19.9 or less in adult (Z68.1) Former smoker (V15.82) (Z87.891) QUIT SMOKING 2020 Hyperlipidemia (272.4) (E78.5) Statin intolerance (995.27) (Z78.9) Intermittent claudication (443.9) (I73.9) Orders Body mass index (BMI) of 19.9 or less in adult Healthy Weight Tips; Status:Complete - Retrospective Authorization; Done: [id number] Hyperlipidemia, PVD (peripheral vascular disease) Lipid Panel; Status:Active - Retrospective Authorization; Requested for:[id number]; Hyperlipidemia, PVD (peripheral vascular disease), Statin intolerance Start: Praluent 75 MG/ML Subcutaneous Solution Auto-injector; one injection SQ every 2 weeks ALT - Alanine Aminotransferase, Serum; Status:Active - Retrospective Authorization; Requested for:33Uvc9882; AST; Status:Active - Retrospective Authorization; Requested for:79Mdz5187; Lipid Panel; Status:Active - Retrospective Authorization; Requested for:52Ysd2511; PVD (peripheral vascular disease) Start: Xarelto 2.5 MG Oral Tablet; TAKE ONE TABLET TWO TIMES DAILY Renew: Aspirin 81 MG Oral Tablet Delayed Release; TAKE 1 TABLET DAILY SocHx: Former smoker Tobacco Use Screening; Status:Complete; Done: 07Alu5818 Tobacco Use Screening; Status:Complete; Done: [id number] Unlinked Stop: Cilostazol 50 MG Oral Tablet Stop: Clopidogrel Bisulfate 75 MG Oral Tablet Patient Instructions Please bring all medicines, vitamins, and herbal supplements with you when you come to the office. Prescriptions will not be filled unless you are compliant with your follow up appointments or have a follow up appointment scheduled as per instruction of your physician. Refills should be requested at the time of your visit Stop Plavix Stop Pletal Start Xarelto 2.5 mg BID Praluent 75 mg Lipid lab 3 months Follow up in 6 months Chief Complaint OVERDUE VASCULAR SUGERY 07/08. Patient is in the office for follow-up for severe PAD. She was last seen by myself in 2016. In 2018she underwent cardiac catheterization by Dr. Maza demonstrating normal coronary arteries. The patient in the last several months have been through major interventions for severe PAD involving the left lower extremity, initially she had stenting done at [facility] and subsequently with failure of the procedure she underwent surgical revascularization at [facility] in [place] with much better results. She is to have claudications that limit her physical activities to some extent but no indicationof threatening limbs at this time. She is currently on dual antiplatelet therapy and cilostazol. She quit smoking in 2016 but she has longstanding diabetes. She denies any chest pain orthopnea PND orlower extremity edema. Her pulses are diminished bilaterally in the lower extremities but the carotid sounds are normal cardiac sounds are normal as well. The patient is not on statin therapy becauseof intolerance. In the past she was taking Repatha but then it was not covered any longer. ASSESSMENT AND PLAN: 1. Hypertension, currently under control medical therapy which will be left unchanged 2. Hyperlipidemia. Intolerant to statin. Will order Praluent 75 mg twice monthly hoping for full coverage 3. Diabetes, managed by , seems to be getting under control. 4. Severe PAD mostly involving the left lower extremity status post surgical revascularization 2021followed by vascular surgery in [facility] in [place]. Aggressive risk factor modification was emphasized. No guidelines suggested adding Xarelto 2.5 mg twice daily to baby aspirin. I propose that to the patient and suggested that he stop the Plavix and the cilostazol for now. Emphasized the need for aggressive risk factor modification. Rj Rollins MD, [facility] Current Meds Medication NameInstruction Albuterol Sulfate HFA 108 (90 Base) MCG/ACT Inhalation Aerosol SolutionPRN amLODIPine Besylate 10 MG Oral TabletTAKE 1 TABLET DAILY. Aspirin 81 MG Oral Tablet Delayed ReleaseTAKE 1 TABLET DAILY. Cilostazol 50 MG Oral TabletTAKE 2 TABLET Twice daily Clopidogrel Bisulfate 75 MG Oral TabletTAKE 1 TABLET DAILY. Flexeril 10 MG TABSTAKE 1 TABLET 3 TIMES DAILY. Gabapentin 100 MG Oral CapsuleTAKE 1 CAPSULE 3 TIMES DAILY. HumaLOG Mix 50/50 SUSPUSE DIRECTED. Ibuprofen 800 MG Oral Tabletas needed Metoprolol Tartrate 25 MG Oral TabletTAKE 1 TABLET DAILY. Ondansetron 4 MG Oral Tablet Disintegratingas directed oxyCODONE HCl - 5 MG Oral CapsuleTAKE 1 CAPSULE Bedtime valACYclovir HCl - 1 GM Oral Tabletas directed prn Allergies Medication Statins Recorded By: Kym Em; 11/29/2021 10:30:53 AM NonMedication Latex Recorded By: Ivy Liriano; 11/29/2021 10:00:02 AM GLOVES Social History Problems Caffeine use (V49.89) (Z78.9) COFFEE 4 TIMES A WEEK, DIET PEPSI 4 TIMES A WEEK, OCCASIONAL UNSWE (more content not included)...NormalUH TouchworksTobacco Screening.on 71-54-0614Pknlk depression screening assessmentMeeker Memorial Hospitalwalk 600 DO Work Phone: Tobacco use status CPHSb) NoMP-[facility] 600 DO Work Phone: MRI Foot w/o Lefton 38-64-2252POJ Foot w/o Left HISTORY: Foot pain. Peripheral arterial disease. Thromboembolic disease of the left foot. Dislocation of tarsometatarsal joint. COMPARISON : None available TECHNIQUE: Multiplanar multisequence MRI of the foot was performed without contrast. FINDINGS: No acute fracture. Small foci of edema within the proximal aspect of the first distal phalanx is likely degenerative. There is slight flattening of the head of the second metatarsal with underlying bone marrow edema that may be degenerative or may represent findings of early Freiberg infraction. Patchy bone marrow edema within the base of the first metatarsal. Abnormal signal of the Lisfranc ligament. Visualized plantar fascia is intact. Flexor and extensor tendons are intact. IMPRESSION: Abnormal signal of the Lisfranc ligament concerning for sprain if not low-grade partial tearing. Patchy bone marrow edema of the base of the first metatarsal without evidence of fracture. Findings of the head of the second metatarsal that may be degenerative or due to early Freiberg infraction. Report reported and signed by Niraj Noland on 11/08/2021 1304NojesusChillicothe Va [facility] Center SpecialistConsultation Noteon 51-17-3650Xodyzqkipsyc Note [id number]#1.00CD:VickiBucyrus Community HospitalAut for Release of Medical Recordson 92-68-0903Gxwt for Release of Medical [id number]#1.00CD:127NataliyaSelect Medical Specialty Hospital - ColumbusUrinalysis - AUTOMATEDon 47-17-6221Hukfwxbogl (U)cloudyNharry s. tr[facility] [employer] Other Bilirubin Ql (U)[facility] WayneSevo [employer] Other Color (U)darkM2G Other Glucose Ql (U)NegativeNorth Maana Other Hemoglobin Ql (U)largeAurora Maana Other Ketones Ql (U)NegativeAurora Maana Other Leukocyte esterase Test strip Ql (U)StockpulseAurora Maana Other Nitrite Ql (U)NegativeAurora Maana Other pH (U)6.5 [pH]A[facility] [employer] Other Protein Ql (U)>=300Nosaint luke's east hospital Maana Other Specific gravity (U) [Rel density]1.015Aurora [employer] Other Urobilinogen (U) [Mass/Vol]0.2 mg/dLAurora Maana Other Urinalysis - AUTOMATEDAurora Maana Other PO Glucose Fingerstickon 29-52-9852Svunwdl [Mass/Vol] 135 mg/yKQjti38 - 105 mg/dLMemorial HospitalInterpretation and review of laboratory resultsAbMendota Mental Health InstituteGlucose [Mass/Vol]157 mg/nHLmwm25 - 105 mg/dLOhiohealth Van W[facility] HealthInterpretation and review of laboratory resultsAbMilwaukee County Behavioral Health Division– [place] Glucose Fingerstickon 16-68-0219Phkrwkg [Mass/Vol]281 mg/lVOggp75 - 105 mg/dLMemorial HospitalInterpretation and review of laboratory resultsAbMendota Mental Health InstituteGlucose [Mass/Vol]272 mg/lTWcmi54 - 105 mg/dLMemorial HospitalInterpretation and review of laboratory resultsAbMendota Mental Health InstituteGlucose [Mass/Vol]178 mg/mPIrqw59 - 105 mg/dLMemorial Hospital Interpretation and review of laboratory resultsAbMendota Mental Health Institute CBCon 19-56-0324Bibtyqxobzl distribution width (RBC) [Ratio]13.1 %Normal 11.8-14.4[facility] Vincent Medical CenterComment on above:Performed By: #### CDP, HCG, PT, PTT, BMPX, CK, JESSIE #### [place] [address] Nursing Care Partner: Daron Ramey MDHematocrit (Bld) [Volume fraction]31.0 %Low 36.3-47.1MMad River Community HospitalComment on above:Performed By: #### CDP, HCG, PT, PTT, BMPX, CK, JESSIE #### [place] [address] Nursing Care Partner: Daron Ramey MDHemoglobin (Bld) [Mass/Vol]10.3 g/dLLow11.9-15.[address] Vincent Medical CenterComment on above:Performed By: #### CDP, HCG, PT, PTT, BMPX, CK, JESSIE #### [place] [address] Nursing Care Partner: BENITO Mcmahan (RBC) [Entitic mass]32.0 juHzqtzd22.2-33.[address] Vincent Medical CenterComment on above:Performed By: #### CDP, HCG, PT, PTT, BMPX, CK, JESSIE #### [place] [address] Nursing Care Partner: BENITO McmahanC (RBC) [Mass/Vol]33.2 g/zEWpbdrm84.4-34.[address] Vincent Medical CenterComment on above:Performed By: #### CDP, HCG, PT, PTT, BMPX, CK, JESSIE #### [place] [address] Nursing Care Partner: AMARA McmahanCV (RBC) [Entitic vol]96.3 kAIozafp08.6-102.[address] Vincent Medical CenterComment on above:Performed By: #### CDP, HCG, PT, PTT, BMPX, CK, JESSIE #### [facility] [employer] [address] [place] [address] Nursing Care Partner: CATALINA Mcmahan Automated0.0 per [address] Vincent Medical CenterComment on above:Performed By: #### CDP, HCG, PT, PTT, BMPX, CK, JESSIE #### [address] [address] Nursing Care Partner: Kurt Mcmahan mean volume (Bld) [Entitic vol]10.5 fL Normal8.1-13.5[facility]. Vincent Medical CenterComment on above:Performed By: #### CDP, HCG, PT, PTT, BMPX, CK, JESSIE #### [address] [address] Nursing Care Partner: Rehan Mcmahan (Bld) [#/Vol]250 10*3/wVFfysqu759-[address] Vincent Medical CenterComment on above:Performed By: #### CDP, HCG, PT, PTT, BMPX, CK, JESSIE #### [address] [address] Nursing Care Partner: ACE Mcmahan (Bld) [#/Vol]3.22 10*6/uLLow3.95-5.11[facility] Vincent Medical CenterComment on above:Performed By: #### CDP, HCG, PT, PTT, BMPX, CK, JESSIE #### [address] [address] Nursing Care Partner: BJ Mcmahan (Bld) [#/Vol]5.2 10*3/uLNormal3.5-11.3MMad River Community HospitalComment on above:Performed By: #### CDP, HCG, PT, PTT, BMPX, CK, JESSIE #### [address] [address] Nursing Care Partner: Daron Ramey MDHematocrit (Bld) [Volume fraction]31.0 %Low36.3 - 47.1 %Memorial HospitalHemoglobin.gastrointestinal spec 1 Ql (Stl)10.3 g/dLLow11.9 - 15.1 g/dLMemorial HospitalInterpretation and review of laboratory resultsAbnormal [facility] Charles HospitalH (RBC) [Entitic mass]32.0 pg25.2 - 33.[address] HospitalHC (RBC) [Mass/Vol]33.2 g/dL28.4 - 34.8 g/dLMercy Health St. Charles HospitalV (RBC) [Entitic vol]96.3 fL 82.6 - 102.9 fLMemorial HospitalNRBC Automated0.00.0 per 100 WBCMemorial HospitalPlatelet distribution width (Bld) [Ratio]13.1 %11.8 - 14.4 %Memorial HospitalPlatelet mean volume (Bld) [Entitic vol]10.5 fL8.1 - 13.5 fLMemorial HospitalPlatelets (Bld) [#/Vol]250 10*3/uLMemorial HospitalRBC (Bld) [#/Vol]3.22 10*6/uLLow3.95 - 5.11 m/uL Memorial HospitalWBC (Bld) [#/Vol]5.2 10*3/uLWVUMedicine Harrison [facility] Hospital HealthMagnesiumon 42-85-2006Ogodmxcjj [Mass/Vol]1.8 mg/dLNormal1.6-2.6Mercy San Vicente HospitalComment on above:Performed By: #### CDP, HCG, PT, PTT, BMPX, CK, JESSIE #### [facility] [employer] [address] [place] [address] Nursing Care Partner: Sherwin Mcmhaangnesium [Mass/Vol]1.8 mg/dL1.6 - 2.6 mg/dL Memorial HospitalNo Panel Informationon 70-34-1483Ghdbt HealthPOC Glucose Fingerstick on 60-78-9878Funsata [Mass/Vol]175 mg/wHNpmt13 - 105 mg/dLMemorial Hospital Interpretation and review of laboratory resultsAbnormalHospital Sisters Health System [facility] Glucose [Mass/Vol]221 mg/yUQmuy55 - 105 mg/dLOhiohealth Van Wert Hospital HealthInterpretation and review of laboratory resultsAbnormMilwaukee County Behavioral Health Division– MilwaukeeGlucose [Mass/Vol] 324 mg/tKCspz08 - 105 mg/dLOhiohealth Van Wert Hospital HealthInterpretation and review of laboratory resultsAbnormMilwaukee County Behavioral Health Division– MilwaukeeGlucose [Mass/Vol]324 mg/jYOwmr58 - 105 mg/dLMemorial HospitalInterpretation and review of laboratory resultsAbnoSauk Prairie Memorial HospitalGlucose [Mass/Vol]303 mg/mBCaax39 - 105 mg/dLMemorial Hospital Interpretation and review of laboratory resultsAbMendota Mental Health Institute Renal Function Panelon 07-02-2021(cont.)[facility] Comment on above:Result Comment: Average GFR for 50-59 years old: 93 mL/min/1.73sq m Chronic Kidney Disease: <60 mL/min/1.73sq m Kidney failure: <15 mL/min/1.73sq m eGFR calculated using average adult body mass. Additional eGFR calculator available at: http://www.[employer]/multiple_crcl_2012.htmPerformed By: #### CDP, HCG, PT, PTT, BMPX, CK, JESSIE #### [employer] [address] [place] [address] [id number] Nursing Care Partner: Daron Ramey MDAlbumin [Mass/Vol]3.8 g/dLNormal3.5-5.2MMad River Community HospitalComment on above:Performed By: #### CDP, HCG, PT, PTT, BMPX, CK, JESSIE #### [employer] [address] [place] [address] [id number] Nursing Care Partner: Osbaldo Mcmahan gap [Moles/Vol]10 mmol/LNormal9-17[facility]. Vincent Medical CenterComment on above:Performed By: #### CDP, HCG, PT, PTT, BMPX, CK, JESSIE #### [employer] [address] [place] [address] [id number] Nursing Care Partner: Daron Madoff, MDCalcium [Mass/Vol]9.3 mg/dLNormal8.6-10.4[facility] Vincent Medical CenterComment on above:Performed By: #### CDP, HCG, PT, PTT, BMPX, CK, JESSIE #### [address] [address] Nursing Care Partner: DEBBIE Mcmahanhloride [Moles/Vol]94 mmol/QXgv72-751YmmnkMercy Health St. Vincent Medical CenterComment on above:Performed By: #### CDP, HCG, PT, PTT, BMPX, CK, JESSIE #### [address] [address] Nursing Care Partner: Daron Ramey MDCO2 [Moles/Vol]27 mmol/USxyokd36-97CvqjoMercy Health St. Vincent Medical CenterComment on above:Performed By: #### CDP, HCG, PT, PTT, BMPX, CK, JESSIE #### [place] [address] Nursing Care Partner: DEBBIE Mcmahanreatinine [Mass/Vol]0.96 mg/dLHigh0.50-[address] Vincent Medical CenterComment on above:Performed By: #### CDP, HCG, PT, PTT, BMPX, CK, JESSIE #### [place] [address] Nursing Care Partner: ANNA Mcmahan, Amer>60Normal>60[facility] Vincent Medical CenterComment on above:Performed By: #### CDP, HCG, PT, PTT, BMPX, CK, JESSIE #### [address] [address] Nursing Care Partner: ANNA Mcmahan,non Amer>60Normal>60[facility] Vincent Medical CenterComment on above:Performed By: #### CDP, HCG, PT, PTT, BMPX, CK, JESSIE #### [address] [place] [address] Nursing Care Partner: Daron Ramey MDGlucose [Mass/Vol]358 mg/rANuuo87-00LnbjiMad River Community HospitalComment on above:Performed By: #### CDP, HCG, PT, PTT, BMPX, CK, JESSIE #### [address] [address] Nursing Care Partner: TARYN Mcmahanhosphorus Inorg.4.2 mg/dLNormal2.6-4.5[facility] St[facility] Vincent Medical CenterComment on above:Performed By: #### CDP, HCG, PT, PTT, BMPX, CK, JESSIE #### [address] [address] Nursing Care Partner: TARYN Mcmahanotassium [Moles/Vol]4.4 mmol/LNormal3.7-5.[address] [facility] Medical CenterComment on above:Performed By: #### CDP, HCG, PT, PTT, BMPX, CK, JESSIE #### [address] [address] Nursing Care Partner: DAWIT Mcmahanodium [Moles/Vol]131 mmol/KKqv545-565LfrszMercy Health St. Vincent Medical CenterComment on above:Performed By: #### CDP, HCG, PT, PTT, BMPX, CK, JESSIE #### [address] [address] Nursing Care Partner: Daron Ramey MDUrea nitrogen [Mass/Vol]9 mg/dLNormal6-20[facility] Vincent Medical CenterComment on above:Performed By: #### CDP, HCG, PT, PTT, BMPX, CK, JESSIE #### [address] [address] Nursing Care Partner: Daron Ramey MDAlbumin [Mass/Vol]3.8 g/dL3.5 - 5.2 g/dLOhiohealth Van Wert Hospital HealthAnion gap [Moles/Vol]10 mmol/L9 - 17 mmol/LMercy HealthCalcium [Mass/Vol] 9.3 mg/dL8.6 - 10.4 mg/dLMercy HealthChloride [Moles/Vol]94 mmol/LLow98 - 107 mmol/LMercy HealthCO2 [Moles/Vol]27 mmol/L20 - 31 mmol/LMercy HealthCreatinine [Mass/Vol]0.96 mg/dLHigh0.50 - 0.90 mg/dLMercy HealthGFR >60>60 mL/minMercy HealthGFR Non->60>60 mL/minMercy HealthGFR/1.73 sq M.predicted MDRD (S/P/Bld) [Vol rate/Area]Memorial HospitalComment on above:Average GFR for 50-59 years old: 93 mL/min/1.73sq m Chronic Kidney Disease: <60 mL/min/1.73sq m Kidney failure: <15 mL/min/1.73sq m eGFR calculated using average adult body mass. Additional eGFR calculator available at: http://www.[employer]/multiple_crcl_2012.htm Glucose [Mass/Vol]358 mg/kLWirw58 - 99 mg/dLOhiohealth Van Wert Hospital HealthInterpretation and review of laboratory resultsAbnormalMer HealthPhosphate [Mass/Vol]4.2 mg/dL2.6 - 4.5 mg/dLOhiohealth Van Wert Hospital HealthPotassium [Moles/Vol]4.4 mmol/L3.7 - 5.3 mmol/LMercy HealthSodium [Moles/Vol]131 mmol/QXuu267 - 144 mmol/LMercy HealthUrea nitrogen (BldV) [Mass/Vol]9 mg/dL6 - 20 mg/dLWilson Healthcy HealthCBCon 56-10-9807Vmilkjwifqk distribution width (RBC) [Ratio]12.9 %Mxdhxu03.8-14.4[facility] Vincent Medical CenterComment on above:Performed By: #### CDP, HCG, PT, PTT, BMPX, CK, JESSIE #### [employer] [facility] [place] [address] Nursing Care Partner: Daron Ramey MDHematocrit (Bld) [Volume fraction]28.8 %Low 36.3-47.1MMad River Community HospitalComment on above:Performed By: #### CDP, HCG, PT, PTT, BMPX, CK, JESSIE #### [place] [address] Nursing Care Partner: Daron Ramey MDHemoglobin (Bld) [Mass/Vol]9.6 g/dLLow11.9-15.[address] [facility] CenterComment on above:Performed By: #### CDP, HCG, PT, PTT, BMPX, CK, JESSIE #### [place] [address] Nursing Care Partner: BENITO Mcmahan (RBC) [Entitic mass]31.7 iyMyqiyv52.2-33.[address] [facility] CenterComment on above:Performed By: #### CDP, HCG, PT, PTT, BMPX, CK, JESSIE #### [place] [address] Nursing Care Partner: BENITO McmahanC (RBC) [Mass/Vol]33.3 g/vSCxtipn65.4-34.[address] [facility] CenterComment on above:Performed By: #### CDP, HCG, PT, PTT, BMPX, CK, JESSIE #### [place] [address] Nursing Care Partner: LEATHA Mcmahan (RBC) [Entitic vol]95.0 hXTehcpp65.6-102.[address] [facility] CenterComment on above:Performed By: #### CDP, HCG, PT, PTT, BMPX, CK, JESSIE #### [place] [address] Nursing Care Partner: Daron Ramey MDNRBC Automated0.0 per [address] [facility] Medical CenterComment on above:Performed By: #### CDP, HCG, PT, PTT, BMPX, CK, JESSIE #### [facility] [address] [place] [address] Nursing Care Partner: Kurt Mcmahan mean volume (Bld) [Entitic vol]10.0 fL Normal8.1-13.5[facility] Vincent Medical CenterComment on above:Performed By: #### CDP, HCG, PT, PTT, BMPX, CK, JESSIE #### [address] [address] Nursing Care Partner: Rehan Mcmahan (Bld) [#/Vol]215 10*3/vPGbeajc608-[address] [facility] Medical CenterComment on above:Performed By: #### CDP, HCG, PT, PTT, BMPX, CK, JESSIE #### [address] [address] Nursing Care Partner: ACE Mcmahan (Bld) [#/Vol]3.03 10*6/uLLow3.95-5.11[facility] Medical CenterComment on above:Performed By: #### CDP, HCG, PT, PTT, BMPX, CK, JESSIE #### [address] [address] Nursing Care Partner: Daron Ramey MDWBC (Bld) [#/Vol]5.7 10*3/uLNormal3.5-11.3MMad River Community HospitalComment on above:Performed By: #### CDP, HCG, PT, PTT, BMPX, CK, JESSIE #### [address] [address] Nursing Care Partner: Daron Ramey MDHematocrit (Bld) [Volume fraction]28.8 %Low36.3 - 47.1 %Memorial HospitalHemoglobin.gastrointestinal spec 1 Ql (Stl)9.6 g/dLLow11.9 - 15.1 g/dLOhiohealth Van [facility] Hospital HealthInterpretation and review of laboratory resultsAbnormal [facility] HospitalH (RBC) [Entitic mass]31.7 pg25.2 - 33.[address] HospitalHC (RBC) [Mass/Vol]33.3 g/dL28.4 - 34.8 g/dLMercy Health St. Charles HospitalV (RBC) [Entitic vol]95.0 fL 82.6 - 102.9 fLMemorial HospitalNRBC Automated0.00.0 per 100 WBCMemorial HospitalPlatelet distribution width (Bld) [Ratio]12.9 %11.8 - 14.4 %Memorial HospitalPlatelet mean volume (Bld) [Entitic vol]10.0 fL8.1 - 13.5 fLMemorial HospitalPlatelets (Bld) [#/Vol]215 10*3/uLMemorial HospitalRBC (Bld) [#/Vol]3.03 10*6/uLLow3.95 - 5.11 m/uL Memorial HospitalWBC (Bld) [#/Vol]5.7 10*3/uLWVUMedicine Harrison Community Hospital HealthMagnesiumon 06-74-3613Efyjklzdc [Mass/Vol]1.8 mg/dLNormal1.6-2.6Mer[facility]ente HospitalComment on above:Performed By: #### CDP, HCG, PT, PTT, BMPX, CK, JESSIE #### [facility] [address] [phone] Nursing Care Partner: Daron Ramey, MDMagnesium [Mass/Vol]1.8 mg/dL1.6 - 2.6 mg/dL Memorial HospitalNo Panel Informationon 98-01-7667Upmcr HealthPOC Glucose Fingerstick on 77-91-1691Vnxfmwg [Mass/Vol]222 mg/tAKvef31 - 105 mg/dLMemorial Hospital Interpretation and review of laboratory resultsAbnoSauk Prairie Memorial Hospital Glucose [Mass/Vol]303 mg/oLOovh96 - 105 mg/dLMemorial HospitalInterpretation and review of laboratory resultsAbnoSauk Prairie Memorial HospitalRenal Function Panel on 07-01-2021(cont.)Peoples HospitalComment on above: Result Comment: Average GFR for 50-59 years old: 93 mL/min/1.73sq m Chronic Kidney Disease: <60 mL/min/1.73sq m Kidney failure: <15 mL/min/1.73sq m eGFR calculated using average adult body mass. Additional eGFR calculator available at: http://www.[employer]/multiple_crcl_2012.htmPerformed By: #### CDP, HCG, PT, PTT, BMPX, CK, JESSIE #### [facility] [address] [place] [address] Nursing Care Partner: Daron Ramey MDAlbumin [Mass/Vol]3.5 g/dLNormal3.5-5.2MMad River Community HospitalComment on above:Performed By: #### CDP, HCG, PT, PTT, BMPX, CK, JESSIE #### [facility] [address] [place] [address] Nursing Care Partner: Daron Ramey MDAnion gap [Moles/Vol]9 mmol/LNormal9-17[facility] Medical CenterComment on above:Performed By: #### CDP, HCG, PT, PTT, BMPX, CK, JESSIE #### [facility] [address] [place] [address] Nursing Care Partner: Daron Ramey MDCalcium [Mass/Vol]8.6 mg/dLNormal8.6-10.4[facility] Medical CenterComment on above:Performed By: #### CDP, HCG, PT, PTT, BMPX, CK, JESSIE #### [facility] [address] [place] [address] Nursing Care Partner: Daron Ramey MDChloride [Moles/Vol]97 mmol/NAbg82-704KdywgMercy Health St. Vincent Medical CenterComment on above:Performed By: #### CDP, HCG, PT, PTT, BMPX, CK, JESSIE #### [facility] [address] [place] [address] Nursing Care Partner: Daron Ramey MDCO2 [Moles/Vol]26 mmol/TDcqhqr11-08PntzpMercy Health St. Vincent Medical CenterComment on above:Performed By: #### CDP, HCG, PT, PTT, BMPX, CK, JESSIE #### [address] [address] Nursing Care Partner: DEBBIE Mcmahanreatinine [Mass/Vol]0.97 mg/dLHigh0.50-0.[address] [facility] Medical CenterComment on above:Performed By: #### CDP, HCG, PT, PTT, BMPX, CK, JESSIE #### [place] [address] Nursing Care Partner: ANNA Mcmahan, Amer>60Normal>60[facility] Medical CenterComment on above:Performed By: #### CDP, HCG, PT, PTT, BMPX, CK, JESSIE #### [place] [address] Nursing Care Partner: ANNA Mcmahan,non Amer60 mL/minLow>60[facility] Medical CenterComment on above:Performed By: #### CDP, HCG, PT, PTT, BMPX, CK, JESSIE #### [address] [address] Nursing Care Partner: Daron Ramey MDGlucose [Mass/Vol]351 mg/iRQrgi75-97Iybsr [facility] Vicente HospitalComment on above:Performed By: #### CDP, HCG, PT, PTT, BMPX, CK, JESSIE #### [address] [address] Nursing Care Partner: Kenneth Mcmahan Inorg.3.5 mg/dLNormal2.6-4.5[facility] Medical CenterComment on above:Performed By: #### CDP, HCG, PT, PTT, BMPX, CK, JESSIE #### [facility] [address] [place] [phone] Nursing Care Partner: TARYN Mcmahanotassium [Moles/Vol]3.8 mmol/LNormal3.7-5.[address] [facility] Medical CenterComment on above:Performed By: #### CDP, HCG, PT, PTT, BMPX, CK, JESSIE #### [address] [place], [place] [phone] Nursing Care Partner: DAWIT Mcmahanodium [Moles/Vol]132 mmol/GDhx820-751TjzlmMercy Health St. Vincent Medical CenterComment on above:Performed By: #### CDP, HCG, PT, PTT, BMPX, CK, JESSIE #### [address] [place], [place] [phone] Nursing Care Partner: Daron Ramey MDUrea nitrogen [Mass/Vol]8 mg/dLNormal6-20[facility] Medical CenterComment on above:Performed By: #### CDP, HCG, PT, PTT, BMPX, CK, JESSIE #### [address] [phone] Nursing Care Partner: Daron Ramey MDAlbumin [Mass/Vol]3.5 g/dL3.5 - 5.2 g/dLMercy HealthAnion gap [Moles/Vol]9 mmol/L9 - 17 mmol/LMercy HealthCalcium [Mass/Vol] 8.6 mg/dL8.6 - 10.4 mg/dLMercy HealthChloride [Moles/Vol]97 mmol/LLow98 - 107 mmol/LMercy HealthCO2 [Moles/Vol]26 mmol/L20 - 31 mmol/LMercy HealthCreatinine [Mass/Vol]0.97 mg/dLHigh0.50 - 0.90 mg/dLMercy HealthGFR >60>60 mL/minMercy HealthGFR Non- Dtkybbjc50 mL/minLow>60Mercy HealthGFR/1.73 sq M.predicted MDRD (S/P/Bld) [Vol rate/Area]Memorial HospitalComment on above:Average GFR for 50-59 years old: 93 mL/min/1.73sq m Chronic Kidney Disease: <60 mL/min/1.73sq m Kidney failure: <15 mL/min/1.73sq m eGFR calculated using average adult body mass. Additional eGFR calculator available at: http://www.[employer]/multiple_crcl_2012.htm Glucose [Mass/Vol]351 mg/vWRbvb55 - 99 mg/dLMemorial HospitalInterpretation and review of laboratory resultsAbnormCatawba Valley Medical Center HealthPhosphate [Mass/Vol]3.5 mg/dL2.6 - 4.5 mg/dLOhiohealth Van [facility] Hospital HealthPotassium [Moles/Vol]3.8 mmol/L3.7 - 5.3 mmol/LMercy HealthSodium [Moles/Vol]132 mmol/DSrr042 - 144 mmol/LMercy HealthUrea nitrogen (BldV) [Mass/Vol]8 mg/dL6 - 20 mg/dLMemorial HospitalAPTTon 54-89-3575nCEK Coag (Bld) [Time]50.9 Roberts Chapelh20.5-30.5[facility] Medical CenterComment on above: Result Comment: IV Heparin Therapy Range: 48.6-77.8Performed By: #### CDP, HCG, PT, PTT, BMPX, CK, JESSIE #### [facility] [address] [place] [address] Nursing Care Partner: Daron Ramey MDaPTT Coag (Bld) [Time]50.9 [facility] Comment on above: IV Heparin Therapy Range: 48.6-77.8 Interpretation and review of laboratory resultsAbMendota Mental Health Institute aPTT Coag (Bld) [Time]70.8 sHigh20.5-30.5[facility] Medical CenterComment on above:Result Comment: IV Heparin Therapy Range: 48.6-77.8Performed By: #### CDP, HCG, PT, PTT, BMPX, CK, JESSIE #### [facility] [address] [place] [address] Nursing Care Partner: Daron Ramey MDaPTT Coag (Bld) [Time]70.8 [facility] Comment on above: IV Heparin Therapy Range: 48.6-77.8 Interpretation and review of laboratory resultsAbMendota Mental Health Institute aPTT Coag (Bld) [Time]98.4 sCritically high20.5-30.5[facility] Medical CenterComment on above:Result Comment: IV Heparin Therapy Range: 48.6-77.8Performed By: #### CDP, HCG, PT, PTT, BMPX, CK, JESSIE #### [address] [address] Nursing Care Partner: Daron Ramey MDaPTT Coag (Bld) [Time]98.4 sCritically highMemorial HospitalComment on above: IV Heparin Therapy Range: 48.6-77.8 Interpretation and review of laboratory resultsAbMendota Mental Health Institute CBCon 15-57-3220Bdiuknnkkrc distribution width (RBC) [Ratio]13.0 %Normal 11.8-14.4[facility] Medical CenterComment on above:Performed By: #### CDP, HCG, PT, PTT, BMPX, CK, JESSIE #### [address] [phone] Nursing Care Partner: Daron Ramey MDHematocrit (Bld) [Volume fraction]30.3 %Low 36.3-47.1MMad River Community HospitalComment on above:Performed By: #### CDP, HCG, PT, PTT, BMPX, CK, JESSIE #### [facility] [address] [place] [phone] Nursing Care Partner: Daron Ramey MDHemoglobin (Bld) [Mass/Vol]10.3 g/dLLow11.9-15.[address] [facility] Medical CenterComment on above:Performed By: #### CDP, HCG, PT, PTT, BMPX, CK, JESSIE #### [facility] [address] [place] [phone] Nursing Care Partner: AMARA McmahanCH (RBC) [Entitic mass]32.6 elYztyvm11.2-33.[address] [facility] CenterComment on above:Performed By: #### CDP, HCG, PT, PTT, BMPX, CK, JESSIE #### [place] [address] Nursing Care Partner: BENITO McmahanC (RBC) [Mass/Vol]34.0 g/rGOuexbz52.4-34.[address] [facility] CenterComment on above:Performed By: #### CDP, HCG, PT, PTT, BMPX, CK, JESSIE #### [place] [address] Nursing Care Partner: LEATHA Mcmahan (RBC) [Entitic vol]95.9 iJFrnqet76.6-102.[address] [facility] CenterComment on above:Performed By: #### CDP, HCG, PT, PTT, BMPX, CK, JESSIE #### [place] [address] Nursing Care Partner: CATALINA Mcmahan Automated0.0 per [address] [facility] Medical CenterComment on above:Performed By: #### CDP, HCG, PT, PTT, BMPX, CK, JESSIE #### [place] [address] Nursing Care Partner: Kurt Mcmahan mean volume (Bld) [Entitic vol]10.1 fL Normal8.1-13.5[facility] Medical CenterComment on above:Performed By: #### CDP, HCG, PT, PTT, BMPX, CK, JESSIE #### [place] [address] Nursing Care Partner: Rehan Mcmahan (Bld) [#/Vol]228 10*3/iDSqitrc295-[address] [facility] Medical CenterComment on above:Performed By: #### CDP, HCG, PT, PTT, BMPX, CK, JESSIE #### [facility] [address] [place], [place] [phone] Nursing Care Partner: GATITO McmahanBC (Bld) [#/Vol]3.16 10*6/uLLow3.95-5.11[facility] Medical CenterComment on above:Performed By: #### CDP, HCG, PT, PTT, BMPX, CK, JESSIE #### [facility] [place], [place] [phone] Nursing Care Partner: Daron Ramey MDWBC (Bld) [#/Vol]5.9 10*3/uLNormal3.5-11.3MMad River Community HospitalComment on above:Performed By: #### CDP, HCG, PT, PTT, BMPX, CK, JESSIE #### [facility] [address] [place] [address] [phone] Nursing Care Partner: Daron Ramey MDHematocrit (Bld) [Volume fraction]30.3 %Low36.3 - 47.1 %Memorial HospitalHemoglobin.gastrointestinal spec 1 Ql (Stl)10.3 g/dLLow11.9 - 15.1 g/dLMemorial HospitalInterpretation and review of laboratory resultsAbnormal [facility] HospitalH (RBC) [Entitic mass]32.6 pg25.2 - 33.[address] HospitalHC (RBC) [Mass/Vol]34.0 g/dL28.4 - 34.8 g/dLMercy Health St. Charles HospitalV (RBC) [Entitic vol]95.9 fL 82.6 - 102.9 fLMemorial HospitalNRBC Automated0.00.0 per 100 WBCMemorial HospitalPlatelet distribution width (Bld) [Ratio]13.0 %11.8 - 14.4 %Memorial HospitalPlatelet mean volume (Bld) [Entitic vol]10.1 fL8.1 - 13.5 fLOhiohealth Van Wert Hospital HealthPlatelets (Bld) [#/Vol]228 10*3/uLMemorial HospitalRBC (Bld) [#/Vol]3.16 10*6/uLLow3.95 - 5.11 m/uL Memorial HospitalWBC (Bld) [#/Vol]5.9 10*3/uLWVUMedicine Harrison Community Hospital HealthMagnesiumon 49-33-3963Pnsattqht [Mass/Vol]1.6 mg/dLNormal1.6-2.6Mer[facility] Vicente HospitalComment on above:Performed By: #### CDP, HCG, PT, PTT, BMPX, CK, JESSIE #### [facility] [address] [place] [address] [phone] Nursing Care Partner: Daron Ramey MDMagnesium [Mass/Vol]1.6 mg/dL1.6 - 2.6 mg/dL Memorial HospitalNo Panel Informationon 05-37-9672Pyucq HealthRenal Function Panelon 06-30-2021(cont.)Peoples HospitalComment on above:Result Comment: Average GFR for 50-59 years old: 93 mL/min/1.73sq m Chronic Kidney Disease: <60 mL/min/1.73sq m Kidney failure: <15 mL/min/1.73sq m eGFR calculated using average adult body mass. Additional eGFR calculator available at: http://www.[employer]/multiple_crcl_2012.htmPerformed By: #### CDP, HCG, PT, PTT, BMPX, CK, JESSIE #### [facility] [address] [place], [place] [phone] Nursing Care Partner: Daron Ramey MDAlbumin [Mass/Vol]3.6 g/dLNormal3.5-5.2Mer[facility] HospitalComment on above:Performed By: #### CDP, HCG, PT, PTT, BMPX, CK, JESSIE #### [facility] [address] [place] [address] Nursing Care Partner: Daron Ramey MDAnisai gap [Moles/Vol]7 mmol/LLow9-17[facility] Medical CenterComment on above:Performed By: #### CDP, HCG, PT, PTT, BMPX, CK, JESSIE #### [address] [address] Nursing Care Partner: DEBBIE Mcmahanalcium [Mass/Vol]9.0 mg/dLNormal8.6-10.4[facility] Medical CenterComment on above:Performed By: #### CDP, HCG, PT, PTT, BMPX, CK, JESSIE #### [address] [address] Nursing Care Partner: Daron Ramey MDChloride [Moles/Vol]100 mmol/YKcfnsn36-987FuhxtMercy Health St. Vincent Medical CenterComment on above:Performed By: #### CDP, HCG, PT, PTT, BMPX, CK, JESSIE #### [address] [address] Nursing Care Partner: Daron Ramey MDCO2 [Moles/Vol]27 mmol/ITigrqy66-95UaqbfMercy Health St. Vincent Medical CenterComment on above:Performed By: #### CDP, HCG, PT, PTT, BMPX, CK, JESSIE #### [address] [address] Nursing Care Partner: DEBBIE Mcmahanreatinine [Mass/Vol]0.85 mg/dLNormal0.50-0.[address] [facility] CenterComment on above:Performed By: #### CDP, HCG, PT, PTT, BMPX, CK, JESSIE #### [address] [address] Nursing Care Partner: ANNA Mcmahan, Amer>60Normal>60[facility] Medical CenterComment on above:Performed By: #### CDP, HCG, PT, PTT, BMPX, CK, JESSIE #### [address] [address] Nursing Care Partner: ANNA Mcmahan,non Amer>60Normal>60[facility] CenterComment on above:Performed By: #### CDP, HCG, PT, PTT, BMPX, CK, JESSIE #### [address] [address] Nursing Care Partner: Daron Ramey MDGlucose [Mass/Vol]220 mg/hCUnmx92-29WjgswMad River Community HospitalComment on above:Performed By: #### CDP, HCG, PT, PTT, BMPX, CK, JESSIE #### [place] [address] Nursing Care Partner: TARYN Mcmahanhosphorutrupti, Inorg.3.6 mg/dLNormal2.6-4.5[facility] CenterComment on above:Performed By: #### CDP, HCG, PT, PTT, BMPX, CK, JESSIE #### [place] [address] Nursing Care Partner: TARYN Mcmahanotassium [Moles/Vol]4.2 mmol/LNormal3.7-5.[address] [facility] CenterComment on above:Performed By: #### CDP, HCG, PT, PTT, BMPX, CK, JESSIE #### [place] [address] Nursing Care Partner: DAWIT Mcmahanodium [Moles/Vol]134 mmol/KQsc868-110HondtMercy Health St. Vincent Medical CenterComment on above:Performed By: #### CDP, HCG, PT, PTT, BMPX, CK, JESSIE #### [place] [address] Nursing Care Partner: Daron Ramey MDUrea nitrogen [Mass/Vol]8 mg/dLNormal6-20[facility] CenterComment on above:Performed By: #### CDP, HCG, PT, PTT, BMPX, CK, JESSIE #### [address] [address] Nursing Care Partner: Daron Madoff, MDAlbumin [Mass/Vol]3.6 g/dL3.5 - 5.2 g/dLMer HealthAnion gap [Moles/Vol]7 mmol/LLow9 - 17 mmol/LMercy HealthCalcium [Mass/Vol]9.0 mg/dL8.6 - 10.4 mg/dLMercy HealthChloride [Moles/Vol]100 mmol/L98 - 107 mmol/LMercy HealthCO2 [Moles/Vol]27 mmol/L20 - 31 mmol/LMercy Health Creatinine [Mass/Vol]0.85 mg/dL0.50 - 0.90 mg/dLMer HealthGFR >60>60 mL/minMer HealthGFR Non->60>60 mL/minMercy Health GFR/1.73 sq M.predicted MDRD (S/P/Bld) [Vol rate/Area]Memorial HospitalComment on above:Average GFR for 50-59 years old: 93 mL/min/1.73sq m Chronic Kidney Disease: <60 mL/min/1.73sq m Kidney failure: <15 mL/min/1.73sq m eGFR calculated using average adult body mass. Additional eGFR calculator available at: http://www.[employer]/multiple_crcl_2011.htm Glucose [Mass/Vol]220 mg/pVNjei47 - 99 mg/dLOhiohealth Van W[facility] Hospital HealthInterpretation and review of laboratory resultsAbnormalMer HealthPhosphate [Mass/Vol]3.6 mg/dL2.6 - 4.5 mg/dLMer HealthPotassium [Moles/Vol]4.2 mmol/L3.7 - 5.3 mmol/LMercy HealthSodium [Moles/Vol]134 mmol/SVux304 - 144 mmol/LMercy HealthUrea nitrogen (BldV) [Mass/Vol]8 mg/dL6 - 20 mg/dLOhiohealth Van Wert Hospital HealthUric Acidon 25-49-1794Xcisr [Mass/Vol]3.4 mg/dLNormal2.4-5.7[facility] CenterComment on above:Performed By: #### CDP, HCG, PT, PTT, BMPX, CK, JESSIE #### [facility] [address] [place] [address] [phone] Nursing Care Partner: Daron Ramey MDUrate [Mass/Vol]3.4 mg/dL2.4 - 5.7 mg/dLHospital Sisters Health System St. Nicholas HospitalXR FOOT LEFT (MIN 3 VIEWS)on [id number] FOOT LEFT (MIN 3 VIEWS)EXAMINATION: THREE XRAY VIEWS OF THE LEFT FOOT 06/29/2021 11:21 pm COMPARISON: 06/19/2021 HISTORY: ORDERING SYSTEM PROVIDED HISTORY: gangrene TECHNOLOGIST PROVIDED HISTORY: gangrene Reason for Exam: left foot pain FINDINGS: No fracture, dislocation or joint abnormality identified. Bone density appears normal. No soft tissue abnormality is identified by this exam. IMPRESSION: Unremarkable left foot. Interpreted by: Cale Lopez Signed by: Cale Lopez 06/29/21 Final resultNoMarion HospitalTon [id number] Coag (Bld) [Time]58.4 sHigh20.5-30.[address] [place], [place] [address]Comment on above: Result Comment: IV Heparin Therapy Range: 48.6-77.8Performed By: #### CDP, HCG, PT, PTT, BMPX, CK, JESSIE #### [facility] [address] [place] [address] [phone] Nursing Care Partner: Daron Ramey MDaPTT Coag (Bld) [Time]58.4 [facility] Comment on above: IV Heparin Therapy Range: 48.6-77.8 Interpretation and review of laboratory resultsAbnoSauk Prairie Memorial Hospital aPTT Coag (Bld) [Time]48.8 Roberts Chapelh20.5-30.[address] [place], [place] [address]Comment on above:Result Comment: IV Heparin Therapy Range: 48.6-77.8Performed By: #### CDP, HCG, PT, PTT, BMPX, CK, JESSIE #### [facility] [address] [place] [address] [phone] Nursing Care Partner: Daron Ramey MDaPTT Coag (Bld) [Time]48.8 [facility] Comment on above: IV Heparin Therapy Range: 48.6-77.8 Interpretation and review of laboratory resultsAbnormalHospital Sisters Health System St. [facility] Hospital aPTT Coag (Bld) [Time]sCritically high20.5-30.5[facility] Comment on above:Result Comment: IV Heparin Therapy Range: 48.6-77.8Performed By: #### CDP, HCG, PT, PTT, BMPX, CK, JESSIE #### [facility] [address] [place] [address] Nursing Care Partner: Kennedy Mcmahan 97-97-7406Suodhssdxjp distribution width (RBC) [Ratio]13.7 %Uhxqhp34.8-14.4[facility] Medical CenterComment on above:Performed By: #### CDP, HCG, PT, PTT, BMPX, CK, JESSIE #### [facility] [address] [place] [address] Nursing Care Partner: Daron Ramey MDHematocrit (Bld) [Volume fraction]35.7 %Low 36.3-47.1MMad River Community HospitalComment on above:Performed By: #### CDP, HCG, PT, PTT, BMPX, CK, JESSIE #### [facility] [address] [place] [address] Nursing Care Partner: Daron Ramey MDHemoglobin (Bld) [Mass/Vol]11.6 g/dLLow11.9-15.[address] [facility] Medical CenterComment on above:Performed By: #### CDP, HCG, PT, PTT, BMPX, CK, JESSIE #### [facility] [address] [place] [address] Nursing Care Partner: AMARA McmahanCH (RBC) [Entitic mass]31.4 upKwtkdu45.2-33.[address] [facility] CenterComment on above:Performed By: #### CDP, HCG, PT, PTT, BMPX, CK, JESSIE #### [facility] [address] [place] [address] Nursing Care Partner: AMARA McmahanCHC (RBC) [Mass/Vol]32.5 g/tFPimsut87.4-34.[address] [facility] Medical CenterComment on above:Performed By: #### CDP, HCG, PT, PTT, BMPX, CK, JESSIE #### [address] [address] Nursing Care Partner: AMARA McmahanCV (RBC) [Entitic vol]96.7 bPZgtqvf04.6-102.[address] [facility] Medical CenterComment on above:Performed By: #### CDP, HCG, PT, PTT, BMPX, CK, JESSIE #### [address] [address] Nursing Care Partner: CATALINA Mcmahan Automated0.0 per [address] [facility] Medical CenterComment on above:Performed By: #### CDP, HCG, PT, PTT, BMPX, CK, JESSIE #### [address] [address] Nursing Care Partner: Kurt Mcmahan mean volume (Bld) [Entitic vol]9.6 fL Normal8.1-13.5[facility] Medical CenterComment on above:Performed By: #### CDP, HCG, PT, PTT, BMPX, CK, JESSIE #### [address] [address] Nursing Care Partner: Rehan Mcmahan (Bld) [#/Vol]318 10*3/wFXdifnw440-[address] [facility] Medical CenterComment on above:Performed By: #### CDP, HCG, PT, PTT, BMPX, CK, JESSIE #### [address] [address] Nursing Care Partner: GATITO McmahanBC (Bld) [#/Vol]3.69 10*6/uLLow3.95-5.11[facility] Medical CenterComment on above:Performed By: #### CDP, HCG, PT, PTT, BMPX, CK, JESSIE #### [facility] [address] [place], [place] [phone] Nursing Care Partner: Daron Ramey MDWBC (Bld) [#/Vol]7.5 10*3/uLNormal3.5-11.3Muniversity hospitals samar[facility] medical centery San Vicente HospitalComment on above:Performed By: #### CDP, HCG, PT, PTT, BMPX, CK, JESSIE #### [facility] [address] [place], [place] [id number] Nursing Care Partner: Daron Ramey MDHematocrit (Bld) [Volume fraction]35.7 %Low36.3 - 47.1 %[facility] HospitalHemoglobin.gastrointestinal spec 1 Ql (Stl)11.6 g/dLLow11.9 - 15.1 g/dLMemorial HospitalInterpretation and review of laboratory resultsAbnormal [facility] HospitalH (RBC) [Entitic mass]31.4 pg25.2 - 33.[address] HospitalHC (RBC) [Mass/Vol]32.5 g/dL28.4 - 34.8 g/dLMercy Health St. Charles HospitalV (RBC) [Entitic vol]96.7 fL 82.6 - 102.9 fLMemorial HospitalNRBC Automated0.00.0 per 100 WBCMemorial HospitalPlatelet distribution width (Bld) [Ratio]13.7 %11.8 - 14.4 %Memorial HospitalPlatelet mean volume (Bld) [Entitic vol]9.6 fL8.1 - 13.5 fLOhiohealth Van Wert Hospital HealthPlatelets (Bld) [#/Vol] 318 10*3/[facility]tering HealthRBC (Bld) [#/Vol]3.69 10*6/uLLow3.95 - 5.11 m/[facility] HealthWBC (Bld) [#/Vol]7.5 10*3/[facility] HealthEKG 12 LeadOrdered By: Yola Guzman on [id number] Cbjz71JGUAadnp Health Work Phone: P [id number] Health Work Phone: [phone]-R [id number] [employer] Work Phone: Q-T [id number] [employer] Work Phone: QRS Zedxnjhz03 msMTechnisys Work Phone: QTc Calculation (Bazett)452 [employer] Work Phone: [phone] Uuzd10ficoqmoRruwp Health Work Phone: T [id number] Health Work Phone: Ventricular [id number] Health Work Phone: [employer] Work Phone: EKG 12 Leadon [id number] sinus rhythm Normal ECGMHPN STV Yola Cabrera MD - 06/29/2021 Normal sinus rhythm Normal ECGWilson HealthConnectbright Work Phone: Magnesiumon [id number] [Mass/Vol]1.7 mg/dL Normal1.6-2.6Mer[facility] San Vicente HospitalComment on above:Performed By: #### CDP, HCG, PT, PTT, BMPX, CK, JESSIE #### [facility] [address] [place], [place] [id number] Nursing Care Partner: Daron Ramey MDMagnesium [Mass/Vol]1.7 mg/dL1.6 - 2.6 mg/dL [facility] OpenRouteNo Panel Informationon [id number] HealthPOC Glucose Fingerstick on 55-28-8468Wlxeiej [Mass/Vol]150 mg/lCMndv46 - 105 mg/dLMemorial Hospital Interpretation and review of laboratory resultsAbnormalHospital Sisters Health [facility] Glucose [Mass/Vol]92 mg/dL65 - 105 mg/dLHospital Sisters Health System St. Nicholas HospitalRenal Function Panelon 06-29-2021(cont.)NormalMercy Health St. Vincent Medical CenterComment on above: Result Comment: Average GFR for 50-59 years old: 93 mL/min/1.73sq m Chronic Kidney Disease: <60 mL/min/1.73sq m Kidney failure: <15 mL/min/1.73sq m eGFR calculated using average adult body mass. Additional eGFR calculator available at: http://www.[employer]/multiple_crcl_2012.htmPerformed By: #### CDP, HCG, PT, PTT, BMPX, CK, JESSIE #### [facility] [address] [place] [address] Nursing Care Partner: Daron Ramey MDAlbumin [Mass/Vol]3.9 g/dLNormal3.5-5.2MMad River Community HospitalComment on above:Performed By: #### CDP, HCG, PT, PTT, BMPX, CK, JESSIE #### [facility] [address] [place] [address] Nursing Care Partner: Daron Ramey MDAnion gap [Moles/Vol]12 mmol/LNormal9-17[facility]. Vincent Medical CenterComment on above:Performed By: #### CDP, HCG, PT, PTT, BMPX, CK, JESSIE #### [facility] [address] [place] [address] Nursing Care Partner: DEBBIE Mcmahanalcium [Mass/Vol]9.2 mg/dLNormal8.6-10.4[facility] Vincent Medical CenterComment on above:Performed By: #### CDP, HCG, PT, PTT, BMPX, CK, JESSIE #### [facility] [address] [place] [address] Nursing Care Partner: DEBBIE Mcmahanhloride [Moles/Vol]103 mmol/KBgovuj03-193RfnvzMercy Health St. Vincent Medical CenterComment on above:Performed By: #### CDP, HCG, PT, PTT, BMPX, CK, JESSIE #### [facility] [address] [place] [address] Nursing Care Partner: Daron Madoff, MDCO2 [Moles/Vol]24 mmol/MRxjoqv36-85WjntsMercy Health St. Vincent Medical CenterComment on above:Performed By: #### CDP, HCG, PT, PTT, BMPX, CK, JESSIE #### [place] [address] Nursing Care Partner: DEBBIE Mcmahanreatinine [Mass/Vol]0.92 mg/dLHigh0.50-[address] Vincent Medical CenterComment on above:Performed By: #### CDP, HCG, PT, PTT, BMPX, CK, JESSIE #### [place] [address] Nursing Care Partner: Daron Ramey MDGFR, Amer>60Normal>60[facility] Vincent Medical CenterComment on above:Performed By: #### CDP, HCG, PT, PTT, BMPX, CK, JESSIE #### [place] [address] Nursing Care Partner: ANNA Mcmahan,non Amer>60Normal>60[facility] Vincent Medical CenterComment on above:Performed By: #### CDP, HCG, PT, PTT, BMPX, CK, JESSIE #### [place] [address] Nursing Care Partner: Daron Ramey MDGlucose [Mass/Vol]75 mg/oBAjidls46-07Vtixe San Vicente HospitalComment on above:Performed By: #### CDP, HCG, PT, PTT, BMPX, CK, JESSIE #### [place] [address] Nursing Care Partner: Kenneth Mcmahan Inorg.4.3 mg/dLNormal2.6-4.5[facility] Vincent Medical CenterComment on above:Performed By: #### CDP, HCG, PT, PTT, BMPX, CK, JESSIE #### [address] [place] [place], [place] [phone] Nursing Care Partner: TARYN Mcmahanotassium [Moles/Vol]4.5 mmol/LNormal3.7-5.[address] Vincent Medical CenterComment on above:Performed By: #### CDP, HCG, PT, PTT, BMPX, CK, JESSIE #### [facility] [address] [place] [phone] Nursing Care Partner: DAWIT Mcmahanodium [Moles/Vol]139 mmol/ELunfay281-818JgxuvMercy Health St. Vincent Medical CenterComment on above:Performed By: #### CDP, HCG, PT, PTT, BMPX, CK, JESSIE #### [facility] [address] [place] [address] Nursing Care Partner: Daron Ramey MDUrea nitrogen [Mass/Vol]8 mg/dLNormal6-20[facility] Vincent Medical CenterComment on above:Performed By: #### CDP, HCG, PT, PTT, BMPX, CK, JESSIE #### [address] [phone] Nursing Care Partner: Daron Ramey MDAlbumin [Mass/Vol]3.9 g/dL3.5 - 5.2 g/dLMercy HealthAnion gap [Moles/Vol]12 mmol/L9 - 17 mmol/LMercy HealthCalcium [Mass/Vol] 9.2 mg/dL8.6 - 10.4 mg/dLMercy HealthChloride [Moles/Vol]103 mmol/L98 - 107 mmol/LMercy HealthCO2 [Moles/Vol]24 mmol/L20 - 31 mmol/LMercy HealthCreatinine [Mass/Vol]0.92 mg/dLHigh0.50 - 0.90 mg/dLMercy HealthGFR >60>60 mL/minMercy HealthGFR Non->60>60 mL/minMercy HealthGFR/1.73 sq M.predicted MDRD (S/P/Bld) [Vol rate/Area]Memorial HospitalComment on above:Average GFR for 50-59 years old: 93 mL/min/1.73sq m Chronic Kidney Disease: <60 mL/min/1.73sq m Kidney failure: <15 mL/min/1.73sq m eGFR calculated using average adult body mass. Additional eGFR calculator available at: http://www.[employer]/multiple_crcl_2012.htm Glucose [Mass/Vol]75 mg/dL70 - 99 mg/dLOhiohealth Van Wert Hospital HealthInterpretation and review of laboratory resultsAbnormalMer HealthPhosphate [Mass/Vol]4.3 mg/dL2.6 - 4.5 mg/dLOhiohealth Van Wert Hospital HealthPotassium [Moles/Vol]4.5 mmol/L3.7 - 5.3 mmol/LMercy Health Sodium [Moles/Vol]139 mmol/L135 - 144 mmol/LMercy HealthUrea nitrogen (BldV) [Mass/Vol]8 mg/dL6 - 20 mg/dLMemorial HospitalXR FOOT LEFT (MIN 3 VIEWS)on 06-29-2021 Unremarkable left foot. [facility] CONSOLIDATEDEXAMINATION: THREE XRAY VIEWS OF THE LEFT FOOT 06/29/2021 11:21 pm COMPARISON: 06/19/2021 HISTORY: ORDERING SYSTEM PROVIDED HISTORY: gangrene TECHNOLOGIST PROVIDED HISTORY: gangrene Reason for Exam: left foot pain FINDINGS: No fracture, dislocation or joint abnormality identified. Bone density appears normal. No soft tissue abnormality is identified by this exam. [facility] Cale De Los Santos - 06/29/2021 EXAMINATION: THREE XRAY VIEWS OF THE LEFT FOOT 06/29/2021 11:21 pm COMPARISON: 06/19/2021 HISTORY: ORDERING SYSTEM PROVIDED HISTORY: gangrene TECHNOLOGIST PROVIDED HISTORY: gangrene Reason for Exam: left foot pain FINDINGS: No fracture, dislocation or joint abnormality identified. Bone density appears normal. No soft tissue abnormality is identified by this exam. IMPRESSION: Unremarkable left foot. [email or web address] Phone: radiology Study observation (narrative)[email or web address] Phone: XR FOOT LEFT (MIN 3 VIEWS)Ordered By: Cale Lopez on [email or web address] Phone: [facility] [phone] Coag (Bld) [Time][facility] LouisvilleiticACMC Healthcare SystemComment on above: IV Heparin Therapy Range: 48.6-77.8 Interpretation and review of laboratory resultsAbnormMilwaukee County Behavioral Health Division– [place] aPTT Coag (Bld) [Time]sCritically high20.5-30.5[facility] Comment on above:Result Comment: IV Heparin Therapy Range: 48.6-77.8Performed By: #### CDP, HCG, PT, PTT, BMPX, CK, JESSIE #### [facility] [address] [place] [address] Nursing Care Partner: Daron Ramey MDaPTT Coag (Bld) [Time][facility]uclid HospitalComment on above: IV Heparin Therapy Range: 48.6-77.8 Interpretation and review of laboratory resultsAbnoSauk Prairie Memorial Hospital aPTT Coag (Bld) [Time]53.4 sHigh20.5-30.5[facility] Vincent Medical CenterComment on above:Result Comment: IV Heparin Therapy Range: 48.6-77.8Performed By: #### CDP, HCG, PT, PTT, BMPX, CK, JESSIE #### [facility] [address] [place] [address] Nursing Care Partner: Daron Ramey MDaPTT Coag (Bld) [Time]53.4 [facility] [place] Comment on above: IV Heparin Therapy Range: 48.6-77.8 Interpretation and review of laboratory resultsAbnoSauk Prairie Memorial Hospital aPTT Coag (Bld) [Time]49.8 sHigh20.5-30.5[facility] Vincent Medical CenterComment on above:Result Comment: IV Heparin Therapy Range: 48.6-77.8Performed By: #### CDP, HCG, PT, PTT, BMPX, CK, JESSIE #### [facility] [address] [place] [address] Nursing Care Partner: Daron Ramey MDaPTT Coag (Bld) [Time]49.8 [facility] [place] Comment on above: IV Heparin Therapy Range: 48.6-77.8 Interpretation and review of laboratory resultsAbMendota Mental Health Institute CBCon 85-31-9732Ehcyijrlquo distribution width (RBC) [Ratio]13.8 %Normal 11.8-14.4[facility] Vincent Medical CenterComment on above:Performed By: #### CDP, HCG, PT, PTT, BMPX, CK, JESSIE #### [address] [address] Nursing Care Partner: Daron Ramey MDHematocrit (Bld) [Volume fraction]37.5 %Normal 36.3-47.1MMad River Community HospitalComment on above:Performed By: #### CDP, HCG, PT, PTT, BMPX, CK, JESSIE #### [address] [address] Nursing Care Partner: Daron Ramey MDHemoglobin (Bld) [Mass/Vol]12.1 g/dLNormal 11.9-15.1MMad River Community HospitalComment on above:Performed By: #### CDP, HCG, PT, PTT, BMPX, CK, JESSIE #### [address] [address] Nursing Care Partner: BENITO Mcmahan (RBC) [Entitic mass]32.2 ntMpjbpy94.2-33.[address] Vincent Medical CenterComment on above:Performed By: #### CDP, HCG, PT, PTT, BMPX, CK, JESSIE #### [facility] [employer] [address] [place] [address] Nursing Care Partner: BENITO McmahanC (RBC) [Mass/Vol]32.3 g/tUGjxjiw55.4-34.[address] Vincent Medical CenterComment on above:Performed By: #### CDP, HCG, PT, PTT, BMPX, CK, JESSIE #### [address] [address] Nursing Care Partner: AMARA McmahanCV (RBC) [Entitic vol]99.7 hFGjuljh88.6-102.[address] Vincent Medical CenterComment on above:Performed By: #### CDP, HCG, PT, PTT, BMPX, CK, JESSIE #### [address] [address] Nursing Care Partner: CATALINA Mcmahan Automated0.0 per [address] Vincent Medical CenterComment on above:Performed By: #### CDP, HCG, PT, PTT, BMPX, CK, JESSIE #### [address] [address] Nursing Care Partner: Kurt Mcmahan mean volume (Bld) [Entitic vol]9.8 fL Normal8.1-13.5[facility] Vincent Medical CenterComment on above:Performed By: #### CDP, HCG, PT, PTT, BMPX, CK, JESSIE #### [address] [address] Nursing Care Partner: Rehan Mcmahan (Bld) [#/Vol]355 10*3/fYQxdxto317-[address] Vincent Medical CenterComment on above:Performed By: #### CDP, HCG, PT, PTT, BMPX, CK, JESSIE #### [facility] [address] [place] [address] Nursing Care Partner: ACE Mcmahan (Bld) [#/Vol]3.76 10*6/uLLow3.95-5.11[facility] Vincent Medical CenterComment on above:Performed By: #### CDP, HCG, PT, PTT, BMPX, CK, JESSIE #### [facility] [address] [place] [address] Nursing Care Partner: BJ Mcmahan (Bld) [#/Vol]6.2 10*3/uLNormal3.5-11.3Mer[facility] Vicente HospitalComment on above:Performed By: #### CDP, HCG, PT, PTT, BMPX, CK, JESSIE #### [facility] [address] [place] [address] Nursing Care Partner: Daron Ramey MDHematocrit (Bld) [Volume fraction]37.5 %36.3 - 47.1 %Memorial HospitalHemoglobin.gastrointestinal spec 1 Ql (Stl)12.1 g/dL11.9 - 15.1 g/dLMemorial HospitalInterpretation and review of laboratory resultsAbnormal [facility] HospitalH (RBC) [Entitic mass]32.2 pg25.2 - 33.[address] HospitalHC (RBC) [Mass/Vol]32.3 g/dL28.4 - 34.8 g/dLMercy Health St. Charles HospitalV (RBC) [Entitic vol]99.7 fL 82.6 - 102.9 fLMemorial HospitalNRBC Automated0.00.0 per 100 WBCMemorial HospitalPlatelet distribution width (Bld) [Ratio]13.8 %11.8 - 14.4 %Memorial HospitalPlatelet mean volume (Bld) [Entitic vol]9.8 fL8.1 - 13.5 fLMemorial HospitalPlatelets (Bld) [#/Vol] 355 10*3/[facility]tering HealthRBC (Bld) [#/Vol]3.76 10*6/uLLow3.95 - 5.11 m/[facility] HealthWBC (Bld) [#/Vol]6.2 10*3/[facility] HospitalCBC with Auto Differentialon [id number] Eos #0.22Memorial HospitalAbsolute Immature Granulocyte0.06Memorial HospitalAbsolute Lymph #3.25Memorial HospitalAbsolute [place] #0.75 Memorial HospitalBasophils (Bld) [#/Vol]0.06 10*3/[facility] HealthBasophils/100 WBC (Bld)1 %0 - 2 %Memorial HospitalEosinophils/100 WBC (Bld)2 %1 - 4 %[facility] Hematocrit (Bld) [Volume fraction]37.7 %36.3 - 47.1 %[facility] Hemoglobin.gastrointestinal spec 1 Ql (Stl)13.0 g/dL11.9 - 15.1 g/dLMemorial Hospital Immature granulocytes/100 WBC (Bld)1 %Qawo7VrbsqMemorial HospitalInterpretation and review of laboratory resultsAbnormalMemorial HospitalLymphocytes/100 WBC (Bld)28 %24 - 43 % [facility] HospitalH (RBC) [Entitic mass]32.6 pg25.2 - 33.[address] HospitalHC (RBC) [Mass/Vol]34.5 g/dL28.4 - 34.8 g/dLMercy Health St. Charles HospitalV (RBC) [Entitic vol]94.5 fL 82.6 - 102.9 fLMemorial HospitalMonocytes/100 WBC (Bld)6 %3 - 12 %Memorial HospitalNRBC Automated0.00.0 per 100 WBCMemorial HospitalPlatelet distribution width (Bld) [Ratio] 13.6 %11.8 - 14.4 %Memorial HospitalPlatelet mean volume (Bld) [Entitic vol]9.6 fL8.1 - 13.5 fLMemorial HospitalPlatelets (Bld) [#/Vol]318 10*3/[facility] HealthRBC (Bld) [#/Vol]3.99 10*6/uL3.95 - 5.11 m/[facility] HealthSegmented neutrophils/100 WBC (Bld)63 %36 - 65 %Memorial HospitalSegs Absolute7.40Memorial HospitalWBC (Bld) [#/Vol]11.7 10*3/uLMayo Clinic Health System– Red CedarCBC with Diffon [id number]. Basophil0.06 k/uLNormal0.00-0.20[facility] Vincent Medical CenterComment on above:Performed By: #### CDP, HCG, PT, PTT, BMPX, CK, JESSIE #### [facility] [address] [place], [place] [phone] Nursing Care Partner: Lia Mcmahan.Imm.Granulocyte0.06 k/uLNormal0.00-0.30[facility] Vincent Medical CenterComment on above:Performed By: #### CDP, HCG, PT, PTT, BMPX, CK, JESSIE #### [place] [address] Nursing Care Partner: Lia Mcmahan.Neutrophil (Seg)7.40 k/uLNormal1.50-8.[address] Vincent Medical CenterComment on above:Performed By: #### CDP, HCG, PT, PTT, BMPX, CK, JESSIE #### [place] [address] Nursing Care Partner: Daron Ramey MDBasophils/100 WBC (Bld)1 %Normal0-2MMad River Community HospitalComment on above:Performed By: #### CDP, HCG, PT, PTT, BMPX, CK, JESSIE #### [place] [address] Nursing Care Partner: Daron Ramey MDEosinophils (Bld) [#/Vol]0.22 10*3/uLNormal 0.00-0.44[facility] Vincent Medical CenterComment on above:Performed By: #### CDP, HCG, PT, PTT, BMPX, CK, JESSIE #### [place] [address] Nursing Care Partner: Daron Ramey MDEosinophils/100 WBC (Bld)2 %Normal1-4[facility] Vincent Medical CenterComment on above:Performed By: #### CDP, HCG, PT, PTT, BMPX, CK, JESSIE #### [place] [address] Nursing Care Partner: Daron Ramey MDErythrocyte distribution width (RBC) [Ratio]13.6 %Itpbok57.8-14.4[facility] Vincent Medical CenterComment on above:Performed By: #### CDP, HCG, PT, PTT, BMPX, CK, JESSIE #### [address] [address] Nursing Care Partner: Daron Ramey MDHematocrit (Bld) [Volume fraction]37.7 %Normal 36.3-47.1MMad River Community HospitalComment on above:Performed By: #### CDP, HCG, PT, PTT, BMPX, CK, JESSIE #### [address] [address] Nursing Care Partner: Daron Ramey MDHemoglobin (Bld) [Mass/Vol]13.0 g/dLNormal 11.9-15.1MMad River Community HospitalComment on above:Performed By: #### CDP, HCG, PT, PTT, BMPX, CK, JESSIE #### [address] [address] Nursing Care Partner: Nimco Mcmahanmature granulocytes/100 WBC (Bld)1 %Doov8PqbkiMercy Health St. Vincent Medical CenterComment on above:Performed By: #### CDP, HCG, PT, PTT, BMPX, CK, JESSIE #### [address] [address] Nursing Care Partner: Daron Ramey MDLymphocytes (Bld) [#/Vol]3.25 10*3/uLNormal 1.10-3.70[facility] Vincent Medical CenterComment on above:Performed By: #### CDP, HCG, PT, PTT, BMPX, CK, JESSIE #### [address] [address] Nursing Care Partner: June Mcmahanmphocytes/100 WBC (Bld)28 %Opzkib54-91UendsMercy Health St. Vincent Medical CenterComment on above:Performed By: #### CDP, HCG, PT, PTT, BMPX, CK, JESSIE #### [address] [address] Nursing Care Partner: AMARA McmahanCH (RBC) [Entitic mass]32.6 ypAkpjhw27.2-33.[address] [facility] Medical CenterComment on above:Performed By: #### CDP, HCG, PT, PTT, BMPX, CK, JESSIE #### [place] [address] Nursing Care Partner: AMARA McmahanCHC (RBC) [Mass/Vol]34.5 g/qCGijbhw14.4-34.[address] [facility] Medical CenterComment on above:Performed By: #### CDP, HCG, PT, PTT, BMPX, CK, JESSIE #### [place] [address] Nursing Care Partner: AMARA McmahanCV (RBC) [Entitic vol]94.5 fIRbrjzy94.6-102.[address] Vincent Medical CenterComment on above:Performed By: #### CDP, HCG, PT, PTT, BMPX, CK, JESSIE #### [place] [address] Nursing Care Partner: AMARA Mcmahanonocytes (Bld) [#/Vol]0.75 10*3/uLNormal 0.10-1.20[facility] Medical CenterComment on above:Performed By: #### CDP, HCG, PT, PTT, BMPX, CK, JESSIE #### [place] [address] Nursing Care Partner: AMARA Mcmahanonocytes/100 WBC (Bld)6 %Normal3-12[facility] Vincent Medical CenterComment on above:Performed By: #### CDP, HCG, PT, PTT, BMPX, CK, JESSIE #### [address] [address] Nursing Care Partner: Conrad Mcmahanutrophil (Seg)63 %Atwwmv77-58EoawjMercy Health St. Vincent Medical CenterComment on above:Performed By: #### CDP, HCG, PT, PTT, BMPX, CK, JESSIE #### [facility] [employer] [address] [place] [address] Nursing Care Partner: CATALINA Mcmahan Automated0.0 per [address] Vincent Medical CenterComment on above:Performed By: #### CDP, HCG, PT, PTT, BMPX, CK, JESSIE #### [facility] [employer] [address] [place] [address] Nursing Care Partner: Kurt Mcmahan mean volume (Bld) [Entitic vol]9.6 fL Normal8.1-13.5[facility] Vincent Medical CenterComment on above:Performed By: #### CDP, HCG, PT, PTT, BMPX, CK, JESSIE #### [facility] [employer] [address] [place] [address] Nursing Care Partner: Rehan Mcmahan (Bld) [#/Vol]318 10*3/kPYjaviw513-[address] [facility] Medical CenterComment on above:Performed By: #### CDP, HCG, PT, PTT, BMPX, CK, JESSIE #### [facility] [employer] [address] [place] [address] Nursing Care Partner: ACE Mcmahan (Bld) [#/Vol]3.99 10*6/uLNormal3.95-5.[address] [facility] Medical CenterComment on above:Performed By: #### CDP, HCG, PT, PTT, BMPX, CK, JESSIE #### [facility] [employer] [address] [place] [address] Nursing Care Partner: BJ Mcmahan (Bld) [#/Vol]11.7 10*3/uLHigh3.5-11.3MMad River Community HospitalComment on above:Performed By: #### CDP, HCG, PT, PTT, BMPX, CK, JESSIE #### [facility] [employer] [address] [place] [address] Nursing Care Partner: PETRA McmahanA ABDOMINAL AORTA W BILAT RUNOFF W CONTRASTon [id number] ABDOMINAL AORTA W BILAT RUNOFF W CONTRASTEXAMINATION: CTA OF THE AORTA WITH LOWER EXTREMITY RUNOFF 06/27/2021 10:32 pm TECHNIQUE: CTA of the pelvis and bilateral lower extremities was performed after the administration of intravenous contrast. Multiplanar reformatted images are provided for review. MIP images are provided for review. Dose modulation, iterative reconstruction, and/or weight based adjustment of the mA/kV was utilized to reduce the radiation dose to as low as reasonably achievable. COMPARISON: None. HISTORY: ORDERING SYSTEM PROVIDED HISTORY: PAD TECHNOLOGIST PROVIDED HISTORY: PAD Reason for Exam: pad FINDINGS: Nonvascular Lower Chest: No acute findings. Organs: Findings suggestive of hepatic steatosis. The gallbladder, pancreas, spleen, adrenals and kidneys reveal no acute findings. GI/Bowel: There is no bowel dilatation or wall thickening identified. Diverticulosis. Moderate stool burden. Pelvis: No acute findings. Peritoneum/Retroperitoneum: No free air, ascites or lymphadenopathy. Bones/Soft Tissues: Mild fat induration in the right groin, which may be related to recent procedure. No hematoma identified. Chronic superior endplate deformity of L5 with associated disc disease. VASCULAR Visualized thoracic aorta is normal in caliber. The abdominal aorta is normal in caliber. No dissection. Atheromatous plaque is present mild luminal narrowing of the aorta. The SAMUEL origin is not visualized, however the remainder of the abdominal visceral branches are patent and without evidence for stenosis. The iliac arterial system is appropriately opacified with scattered atheromatous plaque. Right lower extremity: Notable plaque in the common femoral artery with mild luminal narrowing. There is also mild plaque in the SFA with minimal luminal narrowing.. The SFA and deep femoral artery are well opacified. The popliteal artery is normal in caliber and appropriately opacified. Patent 3 vessel runoff with supply to the foot demonstrated via the dorsalis pedis. Left lower extremity: Mild plaque in the common femoral artery and minimal luminal narrowing. Circumferential plaque in the proximal SFA results in moderate luminal narrowing. The distal SFA at the level of the stent is occluded. The popliteal artery is reconstituted by collateral flow and patent three-vessel runoff is demonstrated with dominant supply to the foot via the dorsalis pedis. IMPRESSION: 1. Occlusion of the distal left SFA at the level of the stent. The popliteal artery is reconstituted and patent 3 vessel runoff is demonstrated. 2. Patent right lower extremity runoff. Scattered atheromatous plaque as above. 3. No aneurysm, dissection or acute aortic abnormality. 4. Diverticulosis. Interpreted by: Simeon Henao MD Signed by: Simeon Henao MD 06/27/21 Final resultNormKettering HealthCatheterization and angiography procedure details panelon [id number] [employer] Work Phone: Hemoglobin A1Con [id number] [Mass/Vol]166 mg/dL [facility]oples HospitalComment on above:Result Comment: The ADA and AACC recommend providing the estimated average glucose result to permit better patient understanding of their HBA1c result.Performed By: #### CDP, HCG, PT, PTT, BMPX, CK, JESSIE #### [employer] [address] [place] [phone] Nursing Care Partner: Daron Ramey MDHbA1c (Bld) [Mass fraction]7.4 %High4.0-6.0[facility] Vincent Medical CenterComment on above:Performed By: #### CDP, HCG, PT, PTT, BMPX, CK, JESSIE #### [employer] [address] [place] [phone] Nursing Care Partner: Daron Ramey MDGlucose [Mass/Vol]166 mg/dLMemorial HospitalComment on above:The ADA and AACC recommend providing the estimated average glucose result to permit better patient understanding of their HBA1c result. HbA1c (Bld) [Mass fraction]7.4 %High4.0 - 6.0 %Memorial HospitalInterpretation and review of laboratory resultsAbnormVan Wert County Hospital HealthMagnesiumon [id number] [Mass/Vol]1.9 mg/dLNormal1.6-2.6Mercy HealthComment on above:Performed By: #### CDP, HCG, PT, PTT, BMPX, CK, JESSIE #### [employer] [address] [place] [address] Nursing Care Partner: Daron Ramey MDNo Panel Informationon [id number] HealthPOC Glucose Fingerstickon [id number] [Mass/Vol]162 mg/uCQptk17 - 105 mg/dL Memorial HospitalInterpretation and review of laboratory resultsAbnormFroedtert Kenosha Medical CenterGlucose [Mass/Vol]153 mg/xINetp65 - 105 mg/dLMemorial Hospital Interpretation and review of laboratory resultsAbnormMilwaukee County Behavioral Health Division– [place] Glucose [Mass/Vol]167 mg/gPKpiw00 - 105 mg/dLMemorial HospitalInterpretation and review of laboratory resultsAbnoSauk Prairie Memorial HospitalGlucose [Mass/Vol]77 mg/dL65 - 105 mg/dLHospital Sisters Health [facility] St. Nicholas HospitalGlucose [Mass/Vol]180 mg/mNCepf16 - 105 mg/dLMemorial HospitalInterpretation and review of laboratory resultsAbnormal [facility] HospitalRenal Function Panelon 06-28-2021(cont.)NormalMercy Health St. Vincent Medical CenterComment on above:Result Comment: Average GFR for 50-59 years old: 93 mL/min/1.73sq m Chronic Kidney Disease: <60 mL/min/1.73sq m Kidney failure: <15 mL/min/1.73sq m eGFR calculated using average adult body mass. Additional eGFR calculator available at: http://www.[employer]/multiple_crcl_2012.htmPerformed By: #### CDP, HCG, PT, PTT, BMPX, CK, JESSIE #### [place] [id number] Nursing Care Partner: Remi Mcmahanatinine [Mass/Vol]0.90 mg/dLNormal0.50-0.[address] Vincent Medical CenterComment on above:Performed By: #### CDP, HCG, PT, PTT, BMPX, CK, JESSIE #### [facility] [address] [place] [address] Nursing Care Partner: ANNA Mcmahan, Amer>60Normal>60[facility] Vincent Medical CenterComment on above:Performed By: #### CDP, HCG, PT, PTT, BMPX, CK, JESSIE #### [facility] [address] [place] [address] Nursing Care Partner: Daron Ramey MDGFR,non Amer>60Normal>60MerVencor HospitalComment on above:Performed By: #### CDP, HCG, PT, PTT, BMPX, CK, JESSIE #### [address] [address] Nursing Care Partner: Daron Ramey MDPhosphorus, Inorg.4.6 mg/dLHigh2.6-4.5[facility] Vincent Medical CenterComment on above:Performed By: #### CDP, HCG, PT, PTT, BMPX, CK, JESSIE #### [address] [address] Nursing Care Partner: Daron Ramey MDUrea nitrogen [Mass/Vol]10 mg/dLNormal6-20[facility] Vincent Medical CenterComment on above:Performed By: #### CDP, HCG, PT, PTT, BMPX, CK, JESSIE #### [address] [address] Nursing Care Partner: Daron Ramey MDAlbumin [Mass/Vol]3.3 g/dLLow3.5-5.2[facility] Comment on above:Performed By: #### CDP, HCG, PT, PTT, BMPX, CK, JESSIE #### [address] [address] Nursing Care Partner: Daron Ramey MDAnion gap [Moles/Vol]9 mmol/LNormal9-17[facility] HealthComment on above:Performed By: #### CDP, HCG, PT, PTT, BMPX, CK, JESSIE #### [facility] [address] [place] [address] Nursing Care Partner: Daron Ramey MDCalcium [Mass/Vol]8.8 mg/dLNormal8.6-10.4[facility] HealthComment on above:Performed By: #### CDP, HCG, PT, PTT, BMPX, CK, JESSIE #### [address] [address] Nursing Care Partner: DEBBIE Mcmahanhloride [Moles/Vol]102 mmol/XCxjibg51-711Kbxtv HealthComment on above:Performed By: #### CDP, HCG, PT, PTT, BMPX, CK, JESSIE #### [address] [address] Nursing Care Partner: Daron Ramey MDCO2 [Moles/Vol]21 mmol/XDieasi55-94Ifckb Health Comment on above:Performed By: #### CDP, HCG, PT, PTT, BMPX, CK, JESSIE #### [address] [address] Nursing Care Partner: Daron Ramey MDGlucose [Mass/Vol]147 mg/hSWhry91-89[facility] Comment on above:Performed By: #### CDP, HCG, PT, PTT, BMPX, CK, JESSIE #### [address] [address] Nursing Care Partner: Daron Ramey MDPotassium [Moles/Vol]4.1 mmol/LNormal3.7-5.3 [facility] HospitalComment on above:Performed By: #### CDP, HCG, PT, PTT, BMPX, CK, JESSIE #### [address] [address] Nursing Care Partner: Daron Ramey MDSodium [Moles/Vol]132 mmol/CSxg181-937Cnstq HealthComment on above:Performed By: #### CDP, HCG, PT, PTT, BMPX, CK, JESSIE #### [address] [address] Nursing Care Partner: DEBBIE Mcmahanreatinine [Mass/Vol]0.9 mg/dL0.50 - 0.90 mg/dL [facility] HospitalGFR >60>60 mL/minOhiohealth Van Wert Hospital HealthGFR Non->60>60 mL/minMemorial HospitalGFR/1.73 sq M.predicted MDRD (S/P/Bld) [Vol rate/Area]Memorial HospitalComment on above:Average GFR for 50-59 years old: 93 mL/min/1.73sq m Chronic Kidney Disease: <60 mL/min/1.73sq m Kidney failure: <15 mL/min/1.73sq m eGFR calculated using average adult body mass. Additional eGFR calculator available at: http://www.[employer]/multiple_crcl_2011.htm Interpretation and review of laboratory resultsAbnormalOhiohealth Van Wert Hospital HealthPhosphate [Mass/Vol]4.6 mg/dLHigh2.6 - 4.5 mg/dLMemorial HospitalUrea nitrogen (BldV) [Mass/Vol]10 mg/dL6 - 20 mg/dLMemorial HospitalTEG, Rapid Citratedon [id number] OYR823.0 iouQkgf55-542LmoszMercy Health St. Vincent Medical CenterComment on above:Performed By: #### CDP, HCG, PT, PTT, BMPX, CK, JESSIE #### [facility] [address] [place] [address] Nursing Care Partner: AMANDA Mcmahan TEG0.0 %Normal0.0-15.0[facility] Vincent Medical CenterComment on above:Performed By: #### CDP, HCG, PT, PTT, BMPX, CK, JESSIE #### [facility] [address] [place] [address] Nursing Care Partner: Daron Ramey MDHeparin Therapy:UNKNOWNNormalMercy Health St. Vincent Medical CenterComment on above:Performed By: #### CDP, HCG, PT, PTT, BMPX, CK, JESSIE #### [facility] [address] [place] [address] Nursing Care Partner: MANISHA Mcmahan (Kinetics) rTEG0.9 minLow1.0-2.0[facility] St. Vincent Medical CenterComment on above:Performed By: #### CDP, HCG, PT, PTT, BMPX, CK, JESSIE #### [facility] [address] Nursing Care Partner: SHERWIN Mcmahan Rapid TEG71.6 bmEnij65-74PhnntMercy Health St. Vincent Medical CenterComment on above:Performed By: #### CDP, HCG, PT, PTT, BMPX, CK, JESSIE #### [address] [address] Nursing Care Partner: GATITO Mcmahan(Reaction Time)rTEG1.2 minHigh0.0-1.0[facility] St. Vincent Medical CenterComment on above:Performed By: #### CDP, HCG, PT, PTT, BMPX, CK, JESSIE #### [facility] [address] [place] [address] Nursing Care Partner: Priya Mcmahan Rapid TEG76.3 abxZrupbg93-72Oeemt [facility] Comment on above:Performed By: #### CDP, HCG, PT, PTT, BMPX, CK, JESSIE #### [address] [address] Nursing Care Partner: ROBERTO Mcmahan(Lysis) TEG0.0 %Normal0-8Mercy HealthComment on above:Performed By: #### CDP, HCG, PT, PTT, BMPX, CK, JESSIE #### [address] [address] Nursing Care Partner: TAWNYA Mcmahan CommentACT is the only FDA approved component of the Rapid TEG.NormalMercy HealthComment on above:Performed By: #### CDP, HCG, PT, PTT, BMPX, CK, JESSIE #### [facility] [address] [place] [address] Nursing Care Partner: JOLYNN Mcmahan KIK812.0HighOhiohealth Van Wert Hospital HealthEPL-TEG0.0 %0.0 - 15.0 %Memorial HospitalHeparin TherapyUNKNOWNMercy HealthInterpretation and review of laboratory resultsAbnoKindred Hospital LimaKinetics Rapid TEG0.9 minLow1.0 - 2.0 min [facility](Max Clot) Rapid TEG71.6 tzDblv09 - 71 mmMemorial HospitalReaction Time Rapid TEG1.2 minHigh0.0 - 1.[address] [facility] [address] Nicholas HospitalAPTTon [id number] Coag (Bld) [Time]99.7 sCritically high20.5-30.5[facility] Comment on above:Result Comment: IV Heparin Therapy Range: 48.6-77.8Performed By: #### CDP, HCG, PT, PTT, BMPX, CK, JESSIE #### [facility] [address] [place] [address] Nursing Care Partner: Poncho Mcmahan Coag (Bld) [Time]99.7 sCritically highMemorial HospitalComment on above: IV Heparin Therapy Range: 48.6-77.8 Interpretation and review of laboratory resultsAbnoSauk Prairie Memorial Hospital Basic Metab w/rfx MGon 06-27-2021(cont.)[facility] Comment on above:Result Comment: Average GFR for 50-59 years old: 93 mL/min/1.73sq m Chronic Kidney Disease: <60 mL/min/1.73sq m Kidney failure: <15 mL/min/1.73sq m eGFR calculated using average adult body mass. Additional eGFR calculator available at: http://www.[employer]/multiple_crcl_2012.htmPerformed By: #### CDP, HCG, PT, PTT, BMPX, CK, JESSIE #### [facility] [address] [place] [address] Nursing Care Partner: Osbaldo Mcmahan gap [Moles/Vol]13 mmol/LNormal9-17[facility] Medical CenterComment on above:Performed By: #### CDP, HCG, PT, PTT, BMPX, CK, JESSIE #### [facility] [address] [place] [id number] Nursing Care Partner: DEBBIE Mcmahanalcium [Mass/Vol]9.4 mg/dLNormal8.6-10.4[facility] Vincent Medical CenterComment on above:Performed By: #### CDP, HCG, PT, PTT, BMPX, CK, JESSIE #### [address] [address] Nursing Care Partner: Daron Ramey [facility] – OKLAHOMA CITYhloride [Moles/Vol]101 mmol/WZxzrht37-342BykrjMercy Health St. Vincent Medical CenterComment on above:Performed By: #### CDP, HCG, PT, PTT, BMPX, CK, JESSIE #### [place] [address] Nursing Care Partner: Daron Ramey MDCO2 [Moles/Vol]24 mmol/CIfbrbf92-34RhgpfMercy Health St. Vincent Medical CenterComment on above:Performed By: #### CDP, HCG, PT, PTT, BMPX, CK, JESSIE #### [address] [address] Nursing Care Partner: DEBBIE Mcmahanreatinine [Mass/Vol]0.77 mg/dLNormal0.50-0.[address] [facility] Medical CenterComment on above:Performed By: #### CDP, HCG, PT, PTT, BMPX, CK, JESSIE #### [address] [address] Nursing Care Partner: ANNA Mcmahan, Amer>60Normal>60[facility] Medical CenterComment on above:Performed By: #### CDP, HCG, PT, PTT, BMPX, CK, JESSIE #### [address] [address] Nursing Care Partner: ANNA Mcmahan,non Amer>60Normal>60[facility] Medical CenterComment on above:Performed By: #### CDP, HCG, PT, PTT, BMPX, CK, JESSIE #### [address] [address] Nursing Care Partner: Daron Ramey MDGlucose [Mass/Vol]133 mg/qEJnpy07-10HdcfrMad River Community HospitalComment on above:Performed By: #### CDP, HCG, PT, PTT, BMPX, CK, JESSIE #### [address] [address] Nursing Care Partner: TARYN Mcmahanotassium [Moles/Vol]3.9 mmol/LNormal3.7-5.[address] [facility] Medical CenterComment on above:Performed By: #### CDP, HCG, PT, PTT, BMPX, CK, JESSIE #### [address] [address] Nursing Care Partner: DAWIT Mcmahanodium [Moles/Vol]138 mmol/ONctuiu513-046KapelMercy Health St. Vincent Medical CenterComment on above:Performed By: #### CDP, HCG, PT, PTT, BMPX, CK, JESSIE #### [place] [address] Nursing Care Partner: Daron Ramey MDUrea nitrogen [Mass/Vol]6 mg/dLNormal6-20[facility] Medical CenterComment on above:Performed By: #### CDP, HCG, PT, PTT, BMPX, CK, JESSIE #### [address] [address] Nursing Care Partner: Daron Ramey MDBasi Metabolic Panel w/ Reflex to MGon [id number] gap [Moles/Vol]13 mmol/L9 - 17 mmol/LMercy HealthCalcium [Mass/Vol]9.4 mg/dL8.6 - 10.4 mg/dLOhiohealth Van W[facility] Hospital HealthChloride [Moles/Vol]101 mmol/L98 - 107 mmol/LMercy HealthCO2 [Moles/Vol]24 mmol/L20 - 31 mmol/LMercy Health Creatinine [Mass/Vol]0.77 mg/dL0.50 - 0.90 mg/dLMemorial HospitalGFR >60>60 mL/minMemorial HospitalGFR Non->60>60 mL/minMemorial Hospital GFR/1.73 sq M.predicted MDRD (S/P/Bld) [Vol rate/Area]Memorial HospitalComment on above:Average GFR for 50-59 years old: 93 mL/min/1.73sq m Chronic Kidney Disease: <60 mL/min/1.73sq m Kidney failure: <15 mL/min/1.73sq m eGFR calculated using average adult body mass. Additional eGFR calculator available at: http://www.[employer]/multiple_crcl_2011.htm Glucose [Mass/Vol]133 mg/zGFufg46 - 99 mg/dLMemorial HospitalInterpretation and review of laboratory resultsAbnormalMemorial HospitalPotassium [Moles/Vol]3.9 mmol/L 3.7 - 5.3 mmol/LMercCentra Virginia Baptist HospitalSodium [Moles/Vol]138 mmol/L135 - 144 mmol/LMercy University Hospitals Tripoint Medical CenterUrea nitrogen (BldV) [Mass/Vol]6 mg/dL6 - 20 mg/dLHospital Sisters Health [facility] CBC with Auto Differentialon [id number] Eos #0.11Memorial HospitalAbsolute Immature Granulocyte<0.03Memorial HospitalAbsolute Lymph #2.40MerPeaceHealthAbsolute [place] #0.30Memorial HospitalBasophils (Bld) [#/Vol]0.06 10*3/uLMemorial Hospital Basophils/100 WBC (Bld)1 %0 - 2 %Memorial HospitalEosinophils/100 WBC (Bld)2 %1 - 4 % Memorial HospitalHematocrit (Bld) [Volume fraction]38.9 %36.3 - 47.1 %[facility] Hemoglobin.gastrointestinal spec 1 Ql (Stl)13.4 g/dL11.9 - 15.1 g/dLMemorial Hospital Immature granulocytes/100 WBC (Bld)0 %0Memorial HospitalLymphocytes/100 WBC (Bld)36 % 24 - 43 %Memorial HospitalMCH (RBC) [Entitic mass]32.6 pg25.2 - 33.5 pgMemorial Hospital MCHC (RBC) [Mass/Vol]34.4 g/dL28.4 - 34.8 g/dLMemorial HospitalMCV (RBC) [Entitic vol]94.6 fL82.6 - 102.9 fLMemorial HospitalMonocytes/100 WBC (Bld)5 %3 - 12 %Memorial HospitalNRBC Automated0.00.0 per 100 WBCMemorial HospitalPlatelet distribution width (Bld) [Ratio]13.2 %11.8 - 14.4 %Memorial HospitalPlatelet mean volume (Bld) [Entitic vol]9.7 fL8.1 - 13.5 fLMemorial HospitalPlatelets (Bld) [#/Vol]399 10*3/Kettering HealthRBC (Bld) [#/Vol]4.11 10*6/uL3.95 - 5.11 m/Kettering HealthSegmented neutrophils/100 WBC (Bld)57 %36 - 65 %Memorial HospitalSegs Absolute3.83[facility] WBC (Bld) [#/Vol]6.7 10*3/uLHospital Sisters Health System St. Nicholas HospitalCBC with Diffon 06-27-2021 Abs. Basophil0.06 k/uLNormal0.00-0.20[facility] Medical CenterComment on above:Performed By: #### CDP, HCG, PT, PTT, BMPX, CK, JESSIE #### [facility] [address] [place] [address] Nursing Care Partner: Lia Mcmahan.Imm.Granulocyte<0.34Wvqmwd5.00-0.30[facility] Medical CenterComment on above:Performed By: #### CDP, HCG, PT, PTT, BMPX, CK, JESSIE #### [facility] [address] [place] [address] Nursing Care Partner: Lia Mcmahan.Neutrophil (Seg)3.83 k/uLNormal1.50-8.[address] [facility] Medical CenterComment on above:Performed By: #### CDP, HCG, PT, PTT, BMPX, CK, JESSIE #### [address] [address] Nursing Care Partner: Daron Ramey MDBasophils/100 WBC (Bld)1 %Normal0-2MMad River Community HospitalComment on above:Performed By: #### CDP, HCG, PT, PTT, BMPX, CK, JESSIE #### [address] [address] Nursing Care Partner: Daron Ramey MDEosinophils (Bld) [#/Vol]0.11 10*3/uLNormal 0.00-0.44[facility] Medical CenterComment on above:Performed By: #### CDP, HCG, PT, PTT, BMPX, CK, JESSIE #### [address] [address] Nursing Care Partner: Daron Ramey MDEosinophils/100 WBC (Bld)2 %Normal1-4[facility] Medical CenterComment on above:Performed By: #### CDP, HCG, PT, PTT, BMPX, CK, JESSIE #### [place] [address] Nursing Care Partner: Daron Ramey MDErythrocyte distribution width (RBC) [Ratio]13.2 %Ijvxam48.8-14.4[facility] Vincent Medical CenterComment on above:Performed By: #### CDP, HCG, PT, PTT, BMPX, CK, JESSIE #### [address] [address] Nursing Care Partner: Daron Ramey MDHematocrit (Bld) [Volume fraction]38.9 %Normal 36.3-47.1MMad River Community HospitalComment on above:Performed By: #### CDP, HCG, PT, PTT, BMPX, CK, JESSIE #### [address] [address] Nursing Care Partner: Daron Ramey MDHemoglobin (Bld) [Mass/Vol]13.4 g/dLNormal 11.9-15.1MMad River Community HospitalComment on above:Performed By: #### CDP, HCG, PT, PTT, BMPX, CK, JESSIE #### [place] [address] Nursing Care Partner: Nimco Mcmahanmature granulocytes/100 WBC (Bld)0 %Normal[address] [facility] Medical CenterComment on above:Performed By: #### CDP, HCG, PT, PTT, BMPX, CK, JESSIE #### [place] [address] Nursing Care Partner: June Mcmahanmphocytes (Bld) [#/Vol]2.40 10*3/uLNormal 1.10-3.70[facility] Medical CenterComment on above:Performed By: #### CDP, HCG, PT, PTT, BMPX, CK, JESSIE #### [place] [address] Nursing Care Partner: Stephany Mcmahanhocytes/100 WBC (Bld)36 %Ljmnbc14-08UwhzyMercy Health St. Vincent Medical CenterComment on above:Performed By: #### CDP, HCG, PT, PTT, BMPX, CK, JESSIE #### [place] [address] Nursing Care Partner: BENITO Mcmahan (RBC) [Entitic mass]32.6 guCrwjqv99.2-33.[address] [facility] Medical CenterComment on above:Performed By: #### CDP, HCG, PT, PTT, BMPX, CK, JESSIE #### [place] [address] Nursing Care Partner: BENITO McmahanC (RBC) [Mass/Vol]34.4 g/oWYvnvfa95.4-34.[address] [facility] Medical CenterComment on above:Performed By: #### CDP, HCG, PT, PTT, BMPX, CK, JESSIE #### [address] [address] Nursing Care Partner: AMARA McmahanCV (RBC) [Entitic vol]94.6 cQBbrqjd84.6-102.[address] [facility] Medical CenterComment on above:Performed By: #### CDP, HCG, PT, PTT, BMPX, CK, JESSIE #### [address] [address] Nursing Care Partner: AMARA Mcmahanonocytes (Bld) [#/Vol]0.30 10*3/uLNormal 0.10-1.20[facility] Medical CenterComment on above:Performed By: #### CDP, HCG, PT, PTT, BMPX, CK, JESSIE #### [address] [address] Nursing Care Partner: AMARA Mcmahanonocytes/100 WBC (Bld)5 %Normal3-12[facility] Medical CenterComment on above:Performed By: #### CDP, HCG, PT, PTT, BMPX, CK, JESSIE #### [address] [address] Nursing Care Partner: Conrad Mcmahanutrophil (Seg)57 %Ukaffe88-57IsqleMercy Health St. Vincent Medical CenterComment on above:Performed By: #### CDP, HCG, PT, PTT, BMPX, CK, JESSIE #### [address] [address] Nursing Care Partner: CATALINA Mcmahan Automated0.0 per [address] Vincent Medical CenterComment on above:Performed By: #### CDP, HCG, PT, PTT, BMPX, CK, JESSIE #### [address] [address] Nursing Care Partner: Daron Madoff, MDPlatelet mean volume (Bld) [Entitic vol]9.7 fL Normal8.1-13.5[facility] Medical CenterComment on above:Performed By: #### CDP, HCG, PT, PTT, BMPX, CK, JESSIE #### [facility] [address] [place] [address] Nursing Care Partner: Rehan Mcmahan (Bld) [#/Vol]399 10*3/kZSkzkmf171-[address] [facility] Medical CenterComment on above:Performed By: #### CDP, HCG, PT, PTT, BMPX, CK, JESSIE #### [facility] [address] [place] [address] Nursing Care Partner: ACE Mcmahan (Bld) [#/Vol]4.11 10*6/uLNormal3.95-5.[address] [facility] Medical CenterComment on above:Performed By: #### CDP, HCG, PT, PTT, BMPX, CK, JESSIE #### [facility] [address] [place] [address] Nursing Care Partner: BJ Mcmahan (Bld) [#/Vol]6.7 10*3/uLNormal3.5-11.3MMad River Community HospitalComment on above:Performed By: #### CDP, HCG, PT, PTT, BMPX, CK, JESSIE #### [facility] [address] [place] [address] Nursing Care Partner: TRENT Mcmahan ABDOMINAL AORTA W BILAT RUNOFF W CONTRASTon . Occlusion of the distal left SFA at the level of the stent. The popliteal artery is reconstituted and patent 3 vessel runoff is demonstrated. 2. Patent right lower extremity runoff. Scattered atheromatous plaque as above. 3. No aneurysm, dissection or acute aortic abnormality. 4. Diverticulosis. [facility] RIS CONSOLIDATEDEXAMINATION: CTA OF THE AORTA WITH LOWER EXTREMITY RUNOFF 06/27/2021 10:32 pm TECHNIQUE: CTA of the pelvis and bilateral lower extremities was performed after the administration of intravenous contrast. Multiplanar reformatted images are provided for review. MIP images are provided for review. Dose modulation, iterative reconstruction, and/or weight based adjustment of the mA/kV was utilized to reduce the radiation dose to as low as reasonably achievable. COMPARISON: None. HISTORY: ORDERING SYSTEM PROVIDED HISTORY: PAD TECHNOLOGIST PROVIDED HISTORY: PAD Reason for Exam: pad FINDINGS: Nonvascular Lower Chest: No acute findings. Organs: Findings suggestive of hepatic steatosis. The gallbladder, pancreas, spleen, adrenals and kidneys reveal no acute findings. GI/Bowel: There is no bowel dilatation or wall thickening identified. Diverticulosis. Moderate stool burden. Pelvis: No acute findings. Peritoneum/Retroperitoneum: No free air, ascites or lymphadenopathy. Bones/Soft Tissues: Mild fat induration in the right groin, which may be related to recent procedure. No hematoma identified. Chronic superior endplate deformity of L5 with associated disc disease. VASCULAR Visualized thoracic aorta is normal in caliber. The abdominal aorta is normal in caliber. No dissection. Atheromatous plaque is present mild luminal narrowing of the aorta. The SAMUEL origin is not visualized, however the remainder of the abdominal visceral branches are patent and without evidence for stenosis. The iliac arterial system is appropriately opacified with scattered atheromatous plaque. Right lower extremity: Notable plaque in the common femoral artery with mild luminal narrowing. There is also mild plaque in the SFA with minimal luminal narrowing.. The SFA and deep femoral artery are well opacified. The popliteal artery is normal in caliber and appropriately opacified. Patent 3 vessel runoff with supply to the foot demonstrated via the dorsalis pedis. Left lower extremity: Mild plaque in the common femoral artery and minimal luminal narrowing. Circumferential plaque in the proximal SFA results in moderate luminal narrowing. The distal SFA at the level of the stent is occluded. The popliteal artery is reconstituted by collateral flow and patent three-vessel runoff is demonstrated with dominant supply to the foot via the dorsalis pedis. Simeon Slaughter MD - 06/27/2021 EXAMINATION: CTA OF THE AORTA WITH LOWER EXTREMITY RUNOFF 06/27/2021 10:32 pm TECHNIQUE: CTA of the pelvis and bilateral lower extremities was performed after the administration of intravenous contrast. Multiplanar reformatted images are provided for review. MIP images are provided for review. Dose modulation, iterative reconstruction, and/or weight based adjustment of the mA/kV was utilized to reduce the radiation dose to as low as reasonably achievable. COMPARISON: None. HISTORY: ORDERING SYSTEM PROVIDED HISTORY: PAD TECHNOLOGIST PROVIDED HISTORY: PAD Reason for Exam: pad FINDINGS: Nonvascular Lower Chest: No acute findings. Organs: Findings suggestive of hepatic steatosis. The gallbladder, pancreas, spleen, adrenals and kidneys reveal no acute findings. GI/Bowel: There is no bowel dilatation or wall thickening identified. Diverticulosis. Moderate stool burden. Pelvis: No acute findings. Peritoneum/Retroperitoneum: No free air, ascites or lymphadenopathy. Bones/Soft Tissues: Mild fat induration in the right groin, which may be related to recent procedure. No hematoma identified. Chronic superior endplate deformity of L5 with associated disc disease. VASCULAR Visualized thoracic aorta is normal in caliber. The abdominal aorta is normal in caliber. No dissection. Atheromatous plaque is present mild luminal narrowing of the aorta. The SAMUEL origin is not visualized, however the remainder of the abdominal visceral branches are patent and without evidence for stenosis. The iliac arterial system is appropriately opacified with scattered atheromatous plaque. Right lower extremity: Notable plaque in the common femoral artery with mild luminal narrowing. There is also mild plaque in the SFA with minimal luminal narrowing.. The SFA and deep femoral artery are well opacified. The popliteal artery is normal in caliber and appropriately opacified. Patent 3 vessel runoff with supply to the foot demonstrated via the dorsalis pedis. Left lower extremity: Mild plaque in the common femoral artery and minimal luminal narrowing. Circumferential plaque in the proximal SFA results in moderate luminal narrowing. The distal SFA at the level of the stent is occluded. The popliteal artery is reconstituted by collateral flow and patent three-vessel runoff is demonstrated with dominant supply to the foot via the dorsalis pedis. IMPRESSION: 1. Occlusion of the distal left SFA at the level of the stent. The popliteal artery is reconstituted and patent 3 vessel runoff is demonstrated. 2. Patent right lower extremity runoff. Scattered atheromatous plaque as above. 3. No aneurysm, dissection or acute aortic abnormality. 4. Diverticulosis. [email or web address] Phone: radiology Study observation (narrative)[email or web address] Phone: cTA ABDOMINAL AORTA W BILAT RUNOFF W CONTRASTOrdered By: Simeon Henao on [id number] Health Work Phone: PTon [phone] Coag (PPP) [Relative time]1.2 {INR} [facility]oples HospitalComment on above:Result Comment: Therapeutic Range: Moderate Anticoagulant Intensity: INR = 2.0-3.0 High Anticoagulant Intensity: INR = 2.5-3.5Performed By: #### CDP, HCG, PT, PTT, BMPX, CK, JESSIE #### [facility] [place], [place] [id number] Nursing Care Partner: YURY Mcmahan Coag (PPP) [Time]12.9 [facility]9.1-12.3MMad River Community HospitalComment on above:Performed By: #### CDP, HCG, PT, PTT, BMPX, CK, JESSIE #### [facility] [place], [place] [id number] Nursing Care Partner: Nadeen Mcmahan-INRon [phone] Coag (Bld) [Relative time]1.2 {INR}[facility] on above: Therapeutic Range: Moderate Anticoagulant Intensity: INR = 2.0-3.0 High Anticoagulant Intensity: INR = 2.5-3.5 Interpretation and review of laboratory resultsAbProMedica Bay Park Hospital Coag (PPP) [Time]12.9 [facility] (SINGLE VIEW FRONTAL)on [id number] CHEST (SINGLE VIEW FRONTAL)EXAMINATION: ONE XRAY VIEW OF THE CHEST 06/27/2021 1:09 pm COMPARISON: None. HISTORY: ORDERING SYSTEM PROVIDED HISTORY: preop TECHNOLOGIST PROVIDED HISTORY: preop FINDINGS: The lungs are without acute focal process. There is no effusion or pneumothorax. The cardiomediastinal silhouette is without acute process. The osseous structures are without acute process. IMPRESSION: No evidence of acute cardiopulmonary disease. Interpreted by: Ti Loo DO Signed by: Ti Loo DO 06/27/21 Final resultNoSamaritan North Health CenterNo evidence of acute cardiopulmonary disease. [facility] RIS CONSOLIDATEDEXAMINATION: ONE XRAY VIEW OF THE CHEST 06/27/2021 1:09 pm COMPARISON: None. HISTORY: ORDERING SYSTEM PROVIDED HISTORY: preop TECHNOLOGIST PROVIDED HISTORY: preop FINDINGS: The lungs are without acute focal process. There is no effusion or pneumothorax. The cardiomediastinal silhouette is without acute process. The osseous structures are without acute process. Ti Jerry, - 06/27/2021 EXAMINATION: ONE XRAY VIEW OF THE CHEST 06/27/2021 1:09 pm COMPARISON: None. HISTORY: ORDERING SYSTEM PROVIDED HISTORY: preop TECHNOLOGIST PROVIDED HISTORY: preop FINDINGS: The lungs are without acute focal process. There is no effusion or pneumothorax. The cardiomediastinal silhouette is without acute process. The osseous structures are without acute process. IMPRESSION: No evidence of acute cardiopulmonary disease. [email or web address] Phone: radiology Study observation (narrative)[email or web address] Phone: XR CHEST (SINGLE VIEW FRONTAL)Ordered By: Ti Loo on [phone] Health Work Phone: APTTon [phone] Coag (Bld) [Time]46.7 sHigh 20.5-30.5[facility] Vincent Medical CenterComment on above:Result Comment: IV Heparin Therapy Range: 48.6-77.8Performed By: #### CDP, HCG, PT, PTT, BMPX, CK, JESSIE #### [facility] [address] [place], [place] [id number] Nursing Care Partner: William Mcmahan Metab w/rfx MGon 06-19-2021(cont.)Normal [facility] Vincent Medical CenterComment on above:Result Comment: Average GFR for 50-59 years old: 93 mL/min/1.73sq m Chronic Kidney Disease: <60 mL/min/1.73sq m Kidney failure: <15 mL/min/1.73sq m eGFR calculated using average adult body mass. Additional eGFR calculator available at: http://www.Omnidrive.MyWealth/multiple_crcl_2012.htmPerformed By: #### CDP, HCG, PT, PTT, BMPX, CK, JESSIE #### [address] [address] Nursing Care Partner: Daron Ramey MDAnion gap [Moles/Vol]11 mmol/LNormal9-17[facility] Vincent Medical CenterComment on above:Performed By: #### CDP, HCG, PT, PTT, BMPX, CK, JESSIE #### [address] [address] Nursing Care Partner: DEBBIE Mcmahanalcium [Mass/Vol]9.7 mg/dLNormal8.6-10.4[facility] Vincent Medical CenterComment on above:Performed By: #### CDP, HCG, PT, PTT, BMPX, CK, JESSIE #### [address] [address] Nursing Care Partner: DEBBIE Mcmahanhloride [Moles/Vol]96 mmol/VBxp26-663WlzipMercy Health St. Vincent Medical CenterComment on above:Performed By: #### CDP, HCG, PT, PTT, BMPX, CK, JESSIE #### [address] [address] Nursing Care Partner: Daron Ramey MDCO2 [Moles/Vol]26 mmol/RSybgsm75-93EzoagMercy Health St. Vincent Medical CenterComment on above:Performed By: #### CDP, HCG, PT, PTT, BMPX, CK, JESSIE #### [address] [address] Nursing Care Partner: DEBBIE Mcmahanreatinine [Mass/Vol]0.82 mg/dLNormal0.50-0.[address] [facility] Medical CenterComment on above:Performed By: #### CDP, HCG, PT, PTT, BMPX, CK, JESSIE #### [address] [address] Nursing Care Partner: Daron Ramey MDGFR, Amer>60Normal>60MerVencor HospitalComment on above:Performed By: #### CDP, HCG, PT, PTT, BMPX, CK, JESSIE #### [address] [address] Nursing Care Partner: Daron Ramey MDGFR,non Amer>60Normal>60MerVencor HospitalComment on above:Performed By: #### CDP, HCG, PT, PTT, BMPX, CK, JESSIE #### [address] [address] Nursing Care Partner: Daron Ramey MDGlucose [Mass/Vol]209 mg/fHGmkd22-52CxgmqAlvarado Hospital Medical CenterComment on above:Performed By: #### CDP, HCG, PT, PTT, BMPX, CK, JESSIE #### [address] [address] Nursing Care Partner: TARYN Mcmahanotassium [Moles/Vol]3.7 mmol/LNormal3.7-5.[address] [facility] Medical CenterComment on above:Performed By: #### CDP, HCG, PT, PTT, BMPX, CK, JESSIE #### [address] [address] Nursing Care Partner: DAWIT Mcmahanodium [Moles/Vol]133 mmol/LFan106-719BzntqMercy Health St. Vincent Medical CenterComment on above:Performed By: #### CDP, HCG, PT, PTT, BMPX, CK, JESSIE #### [address] [address] Nursing Care Partner: Daron Ramey MDUrea nitrogen [Mass/Vol]8 mg/dLNormal6-20[facility] Medical CenterComment on above:Performed By: #### CDP, HCG, PT, PTT, BMPX, CK, JESSIE #### [address] [address] Nursing Care Partner: DEBBIE Mcmahan with Diffon [id number]. Basophil0.03 k/uL Normal0.00-0.20[facility] Vincent Medical CenterComment on above:Performed By: #### CDP, HCG, PT, PTT, BMPX, CK, JESSIE #### [facility] [address] [place] [address] Nursing Care Partner: MDAbs. MarjImm.Granulocyte0.03 k/uLNormal0.00-0.30[facility] Vincent Medical CenterComment on above:Performed By: #### CDP, HCG, PT, PTT, BMPX, CK, JESSIE #### [facility] [address] [place] [address] Nursing Care Partner: Lia Mcmahan.Neutrophil (Seg)5.20 k/uLNormal1.50-8.[address] Vincent Medical CenterComment on above:Performed By: #### CDP, HCG, PT, PTT, BMPX, CK, JESSIE #### [facility] [address] [place] [address] Nursing Care Partner: Daron Ramey MDBasophils/100 WBC (Bld)1 %Normal0-2[facility] Vicente HospitalComment on above:Performed By: #### CDP, HCG, PT, PTT, BMPX, CK, JESSIE #### [facility] [address] [place] [address] Nursing Care Partner: Daron Ramey MDEosinophils (Bld) [#/Vol]0.03 10*3/uLNormal 0.00-0.44[facility] Vincent Medical CenterComment on above:Performed By: #### CDP, HCG, PT, PTT, BMPX, CK, JESSIE #### [facility] [address] [place] [address] Nursing Care Partner: LINH Mcmahanosinophils/100 WBC (Bld)1 %Normal1-4[facility] Medical CenterComment on above:Performed By: #### CDP, HCG, PT, PTT, BMPX, CK, JESSIE #### [facility] [address] [place] [address] Nursing Care Partner: Daron Ramey MDErythrocyte distribution width (RBC) [Ratio]13.0 %Sjsega18.8-14.4[facility] Vincent Medical CenterComment on above:Performed By: #### CDP, HCG, PT, PTT, BMPX, CK, JESSIE #### [facility] [address] [place] [address] Nursing Care Partner: Daorn Ramey MDHematocrit (Bld) [Volume fraction]38.8 %Normal 36.3-47.1MMad River Community HospitalComment on above:Performed By: #### CDP, HCG, PT, PTT, BMPX, CK, JESSIE #### [facility] [address] [place] [address] Nursing Care Partner: Daron Ramey MDHemoglobin (Bld) [Mass/Vol]13.5 g/dLNormal 11.9-15.1MMad River Community HospitalComment on above:Performed By: #### CDP, HCG, PT, PTT, BMPX, CK, JESSIE #### [facility] [address] [place] [address] Nursing Care Partner: Daron Ramey MDImmature granulocytes/100 WBC (Bld)1 %Clhg9RkxguMercy Health St. Vincent Medical CenterComment on above:Performed By: #### CDP, HCG, PT, PTT, BMPX, CK, JESSIE #### [facility] [address] [place] [address] Nursing Care Partner: Daron Ramey MDLymphocytes (Bld) [#/Vol]0.91 10*3/uLLow 1.10-3.70[facility] Vincent Medical CenterComment on above:Performed By: #### CDP, HCG, PT, PTT, BMPX, CK, JESSIE #### [facility] [address] [place] [address] Nursing Care Partner: June Mcmahanmphocytes/100 WBC (Bld)14 %Tyl48-33ZmnhjMercy Health St. Vincent Medical CenterComment on above:Performed By: #### CDP, HCG, PT, PTT, BMPX, CK, JESSIE #### [address] [address] Nursing Care Partner: BENITO Mcmahan (RBC) [Entitic mass]32.5 ahBiagfy21.2-33.[address] [facility] Medical CenterComment on above:Performed By: #### CDP, HCG, PT, PTT, BMPX, CK, JESSIE #### [address] [address] Nursing Care Partner: BENITO McmahanC (RBC) [Mass/Vol]34.8 g/hPAhdqny83.4-34.[address] Vincent Medical CenterComment on above:Performed By: #### CDP, HCG, PT, PTT, BMPX, CK, JESSIE #### [address] [address] Nursing Care Partner: AMARA McmahanCV (RBC) [Entitic vol]93.3 fWUodgbu02.6-102.[address] Vincent Medical CenterComment on above:Performed By: #### CDP, HCG, PT, PTT, BMPX, CK, JESSIE #### [facility] [address] [place] [address] Nursing Care Partner: AMARA Mcmahanonocytes (Bld) [#/Vol]0.36 10*3/uLNormal 0.10-1.20[facility] Medical CenterComment on above:Performed By: #### CDP, HCG, PT, PTT, BMPX, CK, JESSIE #### [facility] [address] [place] [address] Nursing Care Partner: AMARA Mcmahanonocytes/100 WBC (Bld)6 %Normal3-12[facility] Vincent Medical CenterComment on above:Performed By: #### CDP, HCG, PT, PTT, BMPX, CK, JESSIE #### [address] [address] Nursing Care Partner: Abelino Mcmahanophil (Seg)77 %Awqi98-59PzmkhMercy Health St. Vincent Medical CenterComment on above:Performed By: #### CDP, HCG, PT, PTT, BMPX, CK, JESSIE #### [address] [address] Nursing Care Partner: Daron Ramey MDNRBC Automated0.0 per [address] Vincent Medical CenterComment on above:Performed By: #### CDP, HCG, PT, PTT, BMPX, CK, JESSIE #### [facility] [address] [place] [address] Nursing Care Partner: Arash Mcmahantecarlos manuel mean volume (Bld) [Entitic vol]10.2 fL Normal8.1-13.5[facility] Vincent Medical CenterComment on above:Performed By: #### CDP, HCG, PT, PTT, BMPX, CK, JESSIE #### [address] [address] Nursing Care Partner: Arash Mcmahantecristóbal (Bld) [#/Vol]201 10*3/kRHdbxdk847-[address] [facility] Medical CenterComment on above:Performed By: #### CDP, HCG, PT, PTT, BMPX, CK, JESSIE #### [facility] [address] [place] [address] Nursing Care Partner: Daron Ramey MDRBC (Bld) [#/Vol]4.16 10*6/uLNormal3.95-5.[address] [facility] Medical CenterComment on above:Performed By: #### CDP, HCG, PT, PTT, BMPX, CK, JESSIE #### [address] [address] Nursing Care Partner: BRENNA McmahanBC (Bld) [#/Vol]6.6 10*3/uLNormal3.5-11.3Mer[facility] Vicente HospitalComment on above:Performed By: #### CDP, HCG, PT, PTT, BMPX, CK, JESSIE #### [address] [address] Nursing Care Partner: DEBBIE Mcmahanreatine Kinaseon [id number] [Catalytic activity/Vol]29 U/DPgxgvr18-956DesoyMercy Health St. Vincent Medical CenterComment on above: Performed By: #### CDP, HCG, PT, PTT, BMPX, CK, JESSIE #### [address] [address] Nursing Care Partner: Daron Ramey MDHCG Screen, Bloodon [id number] Screen, Blood NegativeNormalNEGMercy Health St. Vincent Medical CenterComment on above:Result Comment: Specimens with hCG levels near the threshold of the test (25 mIU/mL) may give a negative or indeterminate result. In such cases, another test should be performed with a new specimen in 48-72 hours. If early is suspected clinically in this setting, correlation with quantitative serum b-hCG level is suggested. [employer] has confirmed the use of plasma for this test. This has not been cleared or approved by the [place]. Food and Drug Administration. The FDA has determined that such clearance is not necessary.Performed By: #### CDP, HCG, PT, PTT, BMPX, CK, JESSIE #### [address] [address] Nursing Care Partner: Daron Ramey MDLactic Acidon 75-71-3595Ztbwxn Acid,Whole Bl1.1 mmol/LNormal0.7-2.1MercAlvarado Hospital Medical CenterComment on above:Performed By: #### LACTIC #### [address] [id number] Nursing Care Partner: Ceci Mcmahanglobijames 20-49-7751Uduauocvw [Mass/Vol]22 ng/gMUew85-84ScsjoMercy Health St. Vincent Medical CenterComment on above:Performed By: #### CDP, HCG, PT, PTT, BMPX, CK, JESSIE #### [address] [phone] Nursing Care Partner: Rosalee Mcmahan [phone] Coag (PPP) [Relative time]1.3 {INR}Peoples HospitalComment on above:Result Comment: Therapeutic Range: Moderate Anticoagulant Intensity: INR = 2.0-3.0 High Anticoagulant Intensity: INR = 2.5-3.5Performed By: #### CDP, HCG, PT, PTT, BMPX, CK, JESSIE #### [address] [id number] Nursing Care Partner: YURY Mcmahan Coag (PPP) [Time]13.8 sHigh9.1-12.3Muniversity hospitals samaritan medical centery San Vicente HospitalComment on above:Performed By: #### CDP, HCG, PT, PTT, BMPX, CK, JESSIE #### [address] [phone] Nursing Care Partner: MAZIN McmahanR FOOT LEFT (MIN 3 VIEWS)on [id number] FOOT LEFT (MIN 3 VIEWS)EXAMINATION: THREE XRAY VIEWS OF THE LEFT FOOT 06/19/2021 6:13 pm COMPARISON: None. HISTORY: ORDERING SYSTEM PROVIDED HISTORY: L great toe pain TECHNOLOGIST PROVIDED HISTORY: L great toe pain Reason for Exam: ulcer on toe FINDINGS: No fracture, dislocation, or focal osseous lesion is noted. No significant soft tissue abnormality seen. No soft tissue gas or radiopaque foreign body. IMPRESSION: No fracture or dislocation. Interpreted by: Ian Hernandez MD Signed by: Ian Hernandez MD 06/19/[address] Vincent Medical CenterCBC AUTO DIFFon [id number] #0.1 103/ulNormal0.0-0.1The [facility] Medical CenterComment on above:Performed By: #### CBC #### [facility] [address] [address] [address] Dinesh SalasBasophils/100 WBC (Bld)0.7 %Normal0.2-2.0The [facility] Comment on above:Performed By: #### CBC #### [facility] [address] [address] [address] Dinesh Nance #0.1 103/ulNormal0.0-0.7The [facility] John Medical CenterComment on above: Performed By: #### CBC #### [facility] [address] [place] [address] Dr. Dinesh Englandosinophils/100 WBC (Bld)1.8 %Normal0.9-7.0The [facility] Comment on above:Performed By: #### CBC #### [facility] [address] [place] [address] Dr. Dinesh Englandrythrocyte distribution width (RBC) [Ratio]13.5 %Chegmz77.0-15.[address] [facility] Medical CenterComment on above:Performed By: #### CBC #### [facility] [address] [place] [address] Dr. Dinesh SalasHematocrit (Bld) [Volume fraction]41.7 %Azhkvr89.0-48.0The [facility] Medical CenterComment on above:Performed By: #### CBC #### [facility] [address] [place] [address] Dr. Dinesh SalasHemoglobin (Bld) [Mass/Vol]14.4 g/zYImsque66.0-16.0The [facility] Medical CenterComment on above:Performed By: #### CBC #### [facility] [address] [place] [address] Dr. Dinesh Mota #0.02 10e3/ulNormal0.00-0.03The [facility] Medical CenterComment on above:Performed By: #### CBC #### [facility] [address] [address] [address] Dinesh Mota %0.3 %Normal0.0-0.5The [facility] on above: Performed By: #### CBC #### [facility] [address] [address] [address] Dinesh Yeung #1.4 103/ulNormal1.2-3.8The [facility] on above:Performed By: #### CBC #### [facility] [address] [place] [address] Dr. Dinesh Mcginnishocytes/100 WBC (Bld)20.5 %Tepjdg48.5-60.0The [facility] on above:Performed By: #### CBC #### [facility] [address] [place] [address] Dr. Dinesh OrellanaUAL DIFF REQNONormalThe [facility] Medical CenterComkalkaska memorial health center on above: Performed By: #### CBC #### [facility] [address] [place] [address] Dr. Dinesh Ruelas (RBC) [Entitic mass]32.4 uxCatqwd30.7-34.0The [facility] on above:Performed By: #### CBC #### [facility] [address] [place] [address] Dr. Dinesh Ruelas (RBC) [Mass/Vol]34.5 g/qCWsskld97.9-35.2The [facility] on above:Performed By: #### CBC #### [facility] [address] [place] [address] Dr. Dinesh Ruelas (RBC) [Entitic vol]93.9 rNGmowap82.0-99.0The [facility] on above:Performed By: #### CBC #### [facility] [address] [place] [address] Dr. Dinesh Ramey #0.3 103/ulNormal0.3-0.8The [facility] HospitalComment on above:Performed By: #### CBC #### [facility] [address] [place] [address] Dr. Dinesh Magallonocytes/100 WBC (Bld)4.7 %Normal1.7-12.0The [facility] Comment on above:Performed By: #### CBC #### [facility] [address] [place] [address] Dr. Dinesh HughesUT #4.9 103/ulNormal1.4-6.5The [facility] Medical CenterComment on above:Performed By: #### CBC #### [facility] [address] [place] [address] Dr. Dinesh Hughesutrophils/100 WBC (Bld)72.0 %Uxoztp60.0-75.0The [facility] Medical CenterComment on above:Performed By: #### CBC #### [facility] [address] [place] [address] Dr. Dinesh SalasPlatelet mean volume (Bld) [Entitic vol]9.6 fLNormal9.5-13.5The [facility] Medical CenterComment on above:Performed By: #### CBC #### [facility] [address] [place] [address] Dr. Dinesh SalasPLT265 103/xnKslkec563-997Ddb [facility] Medical CenterComment on above: Performed By: #### CBC #### [facility] [address] [place] [address] Dr. Dinesh SalasRBC4.44 106/ulNormal4.20-5.40The [facility] Medical CenterComment on above:Performed By: #### CBC #### [facility] [address] [place] [address] Dr. Dinesh SalasWBC6.8 103/ulNormal4.0-11.0The [facility] on above: Performed By: #### CBC #### [facility] [address] [place] [address] Dr. Dinesh Ayersvid-19 PCR (CVDTBH)on 16-18-0434PPPD-CoV-2 (COVID-19) RNA CARL+probe Ql (Unsp spec)Not detectedNormalNOT DETECTEDThe [facility] Comment on above:Result Comment: When diagnostic testing is negative, the possibility of a false negative should be considered in the context of a patient's recent exposures and the presence of clinical signs and symptoms consistent with SARS-CoV-2. This test is not yet approved or cleared by the [place] FDA. When there are no FDA-approved or cleared tests available, and other criteria are met, FDA can make tests available under an emergency access mechanism called an Emergency Use Authorization (EUA). The EUA for this test is supported by the [employer] Director of Health and Human Service's declaration that circumstances exist to justify the emergency use of in vitro diagnostics for the detection and/or diagnosis of the virus that causes COVID-19. This EUA will remain in effect for the duration of the COVID-19 declaration justifying emergency of IVDs, unless it is terminated or revoked by the FDA (after which the test may no longer be used).Performed By: #### CVDTBH #### [facility] [address] [place] [address] Dr. Dinesh SalasPROF 14(COMP METB)on 78-13-5753Xgpebfj [Mass/Vol]4.0 g/dLNormal 3.4-5.0The [facility] Medical CenterComment on above:Performed By: #### CMP #### [facility] [address] [place] [address] Dr. Dinesh SalasAlbumin/Globulin [Mass ratio]1.4 {ratio}NormalThe [facility] on above:Performed By: #### CMP #### [facility] [address] [place] [address] Dr. Dinesh Carlton [Catalytic activity/Vol]85 U/KIdmjbl66-480Vad [facility] on above:Performed By: #### CMP #### [facility] [address] [place] [address] Dr. Dinesh Louise [Catalytic activity/Vol]12 U/LCritically gzq20-59Wvx [facility] on above:Performed By: #### CMP #### [facility] [address] [place] [address] Dr. Dinesh Peres gap [Moles/Vol]14.6 mmol/LNormalBrown [facility] Hospital Comment on above:Performed By: #### CMP #### [facility] [address] [address] [address] Dinesh SalasAST [Catalytic activity/Vol]12 U/LCritically rlm40-93Nlz [facility] CenterComment on above:Performed By: #### CMP #### [facility] [address] [address] [address] Dinesh SalasBilirubin [Mass/Vol]0.6 mg/dLNormal0.2-1.3TGlenbeigh Hospital Comment on above:Performed By: #### CMP #### [facility] [address] [address] [address] Dinesh SalasCalcium [Mass/Vol]8.7 mg/dLNormal8.5-10.1[facility] Comment on above:Performed By: #### CMP #### [facility] [address] [place] [address] Dr. Dinesh SalasChloride [Moles/Vol]98 mmol/XXaxkiw11-758Gbn [facility] Comment on above:Performed By: #### CMP #### [facility] [address] [place] [address] Dr. Dinesh SalasCO2 [Moles/Vol]24.1 mmol/YKuvelk60.0-30.0[facility] Comment on above:Performed By: #### CMP #### [facility] [address] [address] [address] Dinesh SalasCreatinine [Mass/Vol]0.86 mg/dLNormal0.52-1.04The [facility] CenterComment on above:Performed By: #### CMP #### [facility] [address] [place] [address] Dr. Dinesh EnglandGFR-AF OMANI>60Normal>=60The [facility] CenterComment on above:Performed By: #### CMP #### [facility] [address] [place] [address] Dr. Dinesh EnglandGFR-NON AF OMANI>60Normal>=60The [facility] CenterComment on above:Performed By: #### CMP #### [facility] [address] [place] [address] Dr. Dinesh SalasGlobulin (S) [Mass/Vol]2.9 g/dLNormalThe [facility] CenterComment on above:Performed By: #### CMP #### [facility] Laboratory [address] [place] [address] Dr. Dinesh SalasGlucose [Mass/Vol]167 mg/dLCritically [id number] [facility] CenterComment on above:Performed By: #### CMP #### [facility] Laboratory [address] [place] [address] Dr. Dinesh SalasPotassium [Moles/Vol]3.7 mmol/LNormal3.4-5.0The [facility] Comment on above:Performed By: #### CMP #### [facility] Laboratory [address] [place] [address] Dr. Dinesh SalasProtein [Mass/Vol]6.9 g/dLNormal6.1-8.2The [facility] Comment on above:Performed By: #### CMP #### [facility] Laboratory [address] [place] [address] Dr. Dinesh SalasSodium [Moles/Vol]133 mmol/LCritically bog080-689Gse [facility] CenterComment on above:Performed By: #### CMP #### [facility] Laboratory [address] [place] [address] Dr. Dinesh SalasUrea nitrogen [Mass/Vol]11.0 mg/dLNormal7.0-18.0The [facility] CenterComment on above:Performed By: #### CMP #### [facility] Laboratory [address] [place] [address] Dr. Dinesh Tierney nitrogen/Creatinine [Mass ratio]12.8 mg/mgNormalThe [facility] CenterComment on above:Performed By: #### CMP #### [facility] Laboratory [address] [place] [address] Dr. Dinesh KirkIMEon [id number] Coag (PPP) [Relative time]0.96 {INR} NormalThe [facility] St[facility] John Medical CenterComment on above:Performed By: #### PTT, PT #### [facility] Laboratory [address] [place] [address] Dr. Dinesh Moore [facility] CenterComment on above:Result Comment: DESIRED INR: 2.0 - 3.0 CONDITIONS NOT LISTED BELOW 2.5 - 3.5 FOR PROSTHETIC HEART VALVE REPLACEMENT 2.5 - 3.5 RECURRENT THROMBOSIS Performed By: #### PTT, PT #### [facility] Laboratory [address] [place] [address] Dr. Dinesh Rodriguez Coag (PPP) [Time]10.4 sNormal9.0-11.6ThUniversity [facility]als [facility] Comment on above:Performed By: #### PTT, PT #### [facility] Laboratory [address] [place] [address] Dr. Dinesh Cuenca [id number] Coag (Bld) [Time]30.6 rJkwsge22.3-36.2[facility] HospitalComment on above:Performed By: #### PTT, PT #### [facility] Laboratory [address] [place] [address] Dr. Dinesh Bueno ARTERY LEG LTon [id number] ARTERY LEG LTEXAMINATION: US ARTERY LEG LT HISTORY: pain ; left toe pain, intermittent blue toes; femoral artery stent placement 05/26/2021 COMPARISON: No relevant comparison available. TECHNIQUE: Color duplex Doppler ultrasound evaluation analysis was performed in the usual manner. FINDINGS: External Iliac PSV: 107.0 cm/s External Iliac EDV: 14.9 cm/s Common Femoral PSV: 103.8 cm/s Common Femoral EDV: 11.7 cm/s Superficial Femoral Proximal PSV: 75.4 cm/s Proximal EDV: 6.4 cm/s Mid PSV: 28.8 cm/s Mid EDV: 5.8 cm/s Distal PSV: 0.0 cm/s Distal EDV: 0.0 cm/s Popliteal Proximal PSV: 10.0 cm/s Popliteal Proximal EDV: 3.9 cm/s Posterior Tibial Proximal PSV: 10.3 cm/s Proximal EDV: 0.0 cm/s Mid PSV: 12.1 cm/s Mid EDV: 4.9 cm/s Distal PSV: 8.9 cm/s Distal EDV: 3.9 cm/s Anterior Tibial Proximal PSV: 12.1 cm/s Proximal EDV: 4.2 cm/s Mid PSV: 14.9 cm/s Mid EDV: 7.8 cm/s Distal PSV: 13.1 cm/s Distal EDV: 6.0 cm/s WAVE FORM: Abnormal monophasic waveform within distal femoral artery (distal to endovascular stent), popliteal artery, and calf arteries. Normal triphasic waveform within the proximal and mid left femoral artery. VESSEL LUMEN: Occlusion of the endovascular stent within the mid-distal femoral artery. Prominent collateral vessels within this area supplying flow to the distal femoral artery and distal lower extremity. FLOW VELOCITY: Occlusion of femoral artery endovascular stent. IMPRESSION: 1. Distal left femoral artery stent is occluded. Prominent collateral vessels supplying diminished flow to the distal lower extremity. Electronically authenticated by: OLIVA BABB Date: 2021-06-15 12:04[facility]ullUS RUDDY DOP LEG LTon [id number] RUDDY DOP LEG LTUS RUDDY DOP LEG LT CLINICAL HISTORY: Left hip pain. COMPARISON: None Available. TECHNIQUE: Ultrasound doppler evaluation of the left lower extremity using compression, color doppler and augmentation maneuvers during spectral doppler analysis. FINDINGS: Common femoral vein: Patent. Deep femoral vein: Patent Femoral vein: Patent. Popliteal vein: Patent. Tibioperoneal veins: Patent. Greater saphenous vein: Patent. IMPRESSION: No left lower extremity deep venous thrombosis. Electronically authenticated by: LIGIA VALENTE Date: 2021-06-15 11:55[facility] Tr[facility]ullCB AUTO DIFFon [id number] #0.1 103/ulNormal0.0-0.1The [facility] Medical CenterComment on above:Performed By: #### CVDTBH #### [facility] Laboratory [address] [place] [address] Dr. Dinesh SalasBasophils/100 WBC (Bld)0.5 %Normal0.2-2.0The [facility] Comment on above:Performed By: #### CVDTBH #### [facility] Laboratory [address] [place] [address] Dr. Dinesh Nance #0.3 103/ulNormal0.0-0.7The [facility] Medical CenterComment on above: Performed By: #### CVDTBH #### [facility] [address] [place] [address] Dr. Dinesh Englandosinophils/100 WBC (Bld)3.3 %Normal0.9-7.0The [facility] Comment on above:Performed By: #### CVDTBH #### [facility] Laboratory [address] [place] [address] Dr. Dinesh Englandrythrocyte distribution width (RBC) [Ratio]13.2 %Sgrlrv97.0-15.[address] [facility] CenterComment on above:Performed By: #### CVDTBH #### [facility] Laboratory [address] [place] [address] Dr. Dinesh SalasHematocrit (Bld) [Volume fraction]37.2 %Xrjzfe00.0-48.0The [facility] CenterComment on above:Performed By: #### CVDTBH #### [facility] [address] [place] [address] Dr. Dinesh SalasHemoglobin (Bld) [Mass/Vol]12.9 g/wYJoaryb06.0-16.0The [facility] CenterComment on above:Performed By: #### CVDTBH #### [facility] [address] [place] [address] Dr. Dinesh Mota #0.03 10e3/ulNormal0.00-0.03The [facility] HospitalComment on above:Performed By: #### CVDTBH #### [facility] [address] [place] [address] Dr. Dinesh Mota %0.3 %Normal0.0-0.5The [facility] CenterComment on above: Performed By: #### CVDTBH #### [facility] [address] [place] [address] Dr. Dinesh Yeung #2.4 103/ulNormal1.2-3.8The [facility] CenterComment on above:Performed By: #### CVDTBH #### [facility] [address] [place] [address] Dr. Dinesh Chongmphocytes/100 WBC (Bld)24.9 %Mwvmfc95.5-60.0The [facility] CenterComment on above:Performed By: #### CVDTBH #### [facility] [address] [place] [address] Dr. Dinesh Degroot DIFF REQNONormalThe [facility] St[facility] John Medical CenterComment on above: Performed By: #### CVDTBH #### [facility] [address] [place] [address] Dr. Dinesh Anderson (RBC) [Entitic mass]32.3 fmSrcdyv16.7-34.0The [facility] CenterComment on above:Performed By: #### CVDTBH #### [facility] Laboratory [address] [place] [address] Dr. Dinesh Ruelas (RBC) [Mass/Vol]34.7 g/lFDpylgk29.9-35.2The [facility] CenterComment on above:Performed By: #### CVDTBH #### [facility] [address] [place] [address] Dr. Dinesh Salinas (RBC) [Entitic vol]93.2 wWViigoo75.0-99.0The [facility] CenterComment on above:Performed By: #### CVDTBH #### [facility] [address] [place] [address] Dr. Dinesh Ramey #0.5 103/ulNormal0.3-0.8The [facility] CenterComment on above:Performed By: #### CVDTBH #### [facility] [address] [place] [address] Dr. Dinesh Magallonocytes/100 WBC (Bld)4.7 %Normal1.7-12.0The [facility] Comment on above:Performed By: #### CVDTBH #### [facility] Laboratory [address] [place] [address] Dr. Dinesh HughesUT #6.4 103/ulNormal1.4-6.5The [facility] CenterComment on above:Performed By: #### CVDTBH #### [facility] Laboratory [address] [place] [address] Dr. Dinesh Hughesutrophils/100 WBC (Bld)66.3 %Uaduxt95.0-75.0The [facility] CenterComment on above:Performed By: #### CVDTBH #### [facility] [address] [place] [address] Dr. Dinesh SalasPlatelet mean volume (Bld) [Entitic vol]9.4 fLCritically low 9.5-13.5The [facility] CenterComment on above:Performed By: #### CVDTBH #### [facility] [address] [place] [address] Dr. Dinesh SalasPLT213 103/hlNitscc765-981Rdp [facility] CenterComment on above: Performed By: #### CVDTBH #### [facility] Laboratory [address] [place] [address] Dr. Dinesh SalasRBC3.99 106/ulCritically low4.20-5.40The [facility] CenterComkalkaska memorial health center on above:Performed By: #### CVDTBH #### [facility] Laboratory [address] [place] [address] Dr. Dinesh SalasWBC9.7 103/ulNormal4.0-11.0The [facility] CenterComment on above: Performed By: #### CVDTBH #### [facility] [address] [place] [address] Dr. Dinesh Whitmore LOW EXT LT WO W CONon [id number] LOW EXT LT WO W CON EXAMINATION: CTA LOW EXT LT WO W CON HISTORY: Pain [left lower extremity pain. COMPARISON: None. TECHNIQUE: Axial CT images of the left lower extremity are obtained as well as sagittal and coronal reformations. Additional 3-D reconstruction images were obtained on a separate workstation to aid in interpretation. MIP (maximum intensity projection) images were performed. Dose reduction techniques were achieved by using automated exposure control and/or adjustment of mA and/or kV according to patient size and/or use of iterative reconstruction technique. FINDINGS: Peripheral soft and hard plaquing of the visualized abdominal aorta is present without significant stenosis aneurysm. The left internal and external iliac arteries are normally patent. The common femoral artery demonstrates peripheral plaquing with less than 50% stenosis. The profunda femoral artery is normally patent. Scattered soft plaquing seen throughout the superficial femoral artery with multiple regions of less than 50% stenosis. There is total occlusion the distal femoral artery 2 cm length with reconstitution of flow secondary to collateral vessels. The popliteal artery is normally opacified. The tibial peroneal trunk is normally opacified. There is nonopacification of the fibular artery at the level of the distal calf with two-vessel runoff to the level of the ankle. IMPRESSION: 1. Short segment arterial occlusion at the mid to distal superficial femoral artery for 2 cm length with reconstitution of flow secondary to collateral vessels. 2. Additional regions of less than 50% stenosis throughout the superficial femoral and common femoral artery. 3. Two-vessel runoff to the level of the ankle. Findings discussed with Dr. Foster 05/25/2021 at 2:54 AM. Electronically authenticated by: LEDA NAVA Date: 2021-05-25 02:56Normal The [facility] CenterCovid-19 PCR (CVDTBH)on [id number]-CoV-2 (COVID-19) RNA CARL+probe Ql (Unsp spec)Not detectedNormalNOT DETECTEDThe [facility] Comment on above:Result Comment: This test is not yet approved or cleared by the [place] FDA. When there are no FDA-approved or cleared tests available, and other criteria are met, FDA can make tests available under an emergency access mechanism called an Emergency Use Authorization (EUA). The EUA for this test is supported by the [place] of Health and Human Service's (HHS's) declaration that circumstances exist to justify the emergency use of in vitro diagnostics for the detection and/or diagnosis of the virus that causes COVID- 19. This EUA will remain in effect (meaning this test can be used) for the duration of the COVID-19 declaration justifying emergency of IVDs, unless it is terminated or revoked by FDA (after which the test may no longer be used). When diagnostic testing is negative, the possibility of a false negative should be considered in the context of a patient's recent exposures and the presence of clinical signs and symptoms consistent with SARS-CoV-2.Performed By: #### CVDTBH #### [facility] [address] [place] [address] Dr. Dinesh SalasPROF CHEM 8 (BAS METB)on [id number] gap [Moles/Vol]12.2 mmol/LNormalThe [facility] CenterComment on above:Performed By: #### CVDTBH #### [facility] Laboratory [address] [place] [address] Dr. Dinesh SalasCalcium [Mass/Vol]8.1 mg/dLCritically low8.4-10.2The [facility] CenterComment on above:Performed By: #### CVDTBH #### [facility] Laboratory [address] [place] [address] Dr. Dinesh SalasChloride [Moles/Vol]98 mmol/JCbppxv54-772GqkBrown [facility] Comment on above:Performed By: #### CVDTBH #### [facility] [address] [place] [address] Dr. Dinesh SalasCO2 [Moles/Vol]25.1 mmol/RRyarji86.0-30.0[facility] Comment on above:Performed By: #### CVDTBH #### [facility] [address] [place] [address] Dr. Dinesh SalasCreatinine [Mass/Vol]1.10 mg/dLCritically high0.52-1.04The [facility] CenterComment on above:Performed By: #### CVDTBH #### [facility] Laboratory [address] [place] [address] Dr. Dinesh EnglandGFR-AF OMANI>60Normal>=60The [facility] CenterComment on above:Performed By: #### CVDTBH #### [facility] Laboratory [address] [place] [address] Dr. Dinesh EnglandGFR-NON AF RDXRRJNG71 mL/min/1.23j7Jkuypccmns low>=60The [facility] CenterComment on above:Performed By: #### CVDTBH #### [facility] Laboratory [address] [place] [address] Dr. Dinesh SalasGlucose [Mass/Vol]138 mg/dLCritically nhzq73-041Tym [facility] CenterComment on above:Performed By: #### CVDTBH #### [facility] Laboratory [address] [place] [address] Dr. Dinesh SalasPotassium [Moles/Vol]3.3 mmol/LCritically low3.4-5.0The [facility] CenterComment on above:Performed By: #### CVDTBH #### [facility] Laboratory [address] [place] [address] Dr. Dinesh SalasSodium [Moles/Vol]132 mmol/LCritically qqr420-844Cxt [facility] CenterComment on above:Performed By: #### CVDTBH #### [facility] Laboratory [address] [place] [address] Dr. Dinesh SalasUrea nitrogen [Mass/Vol]14.0 mg/dLNormal7.0-17.0[facility] HospitalComment on above:Performed By: #### CVDTBH #### [facility] [address] [place] [address] Dr. Dinesh Tierney nitrogen/Creatinine [Mass ratio]12.7 mg/mgSelect Medical Specialty Hospital - TrumbullComkalkaska memorial health center on above:Performed By: #### CVDTBH #### [facility] [address] [place] [address] Dr. Dinesh SalasPROTIMEsai [id number] Coag (PPP) [Relative time]0.98 {INR} NormalBrown Memorial HospitalComkalkaska memorial health center on above:Performed By: #### CVDTBH #### [facility] Laboratory [address] [place] [address] Dr. Dinesh Moore GUIDELINESSEE BELOWSelect Medical Specialty Hospital - TrumbullComment on above:Result Comment: DESIRED INR: 2.0 - 3.0 CONDITIONS NOT LISTED BELOW 2.5 - 3.5 FOR PROSTHETIC HEART VALVE REPLACEMENT 2.5 - 3.5 RECURRENT THROMBOSIS Performed By: #### CVDTBH #### [facility] [address] [place], [place] [address] Dr. Dinesh SalasPT Coag (PPP) [Time]10.6 sNormal9.0-11.6The [facility] Comment on above:Performed By: #### CVDTBH #### [facility] [address] [place], [place] [address] Dr. Dinesh RodriguezBanner Behavioral [facility] [id number] Coag (Bld) [Time]27.6 rMdqelx93.3-36.2[facility] HospitalComment on above:Performed By: #### CVDTBH #### [facility] [address] [place], [place] [address] Dr. Dinesh Salas Vital Signs Date TimeVital SignValuePerforming [id number] 11:28-0400Body enlmiq737.6 cmPrincess Pizano MD Work Phone: [phone]07-15-2025 11:28-0400Body mass index (BMI) [Ratio]21.63 kg/p9SwnroPrincess Pizano MD Work Phone: [phone]07-15-2025 11:28-0400Body deusro85.15 kgPrincess Pizano MD Work Phone: [phone]07-15-2025 11:28-0400Diastolic blood gykqzbgv928 mm[Hg]Princess Pizano MD Work Phone: [phone]07-15-2025 11:28-0400Heart rate 75 /minPrincess Pizano MD Work Phone: [phone]07-15-2025 11:286396YgU9% (BldA) [Mass fraction]99 %Princess Pizano MD Work Phone: [phone]07-15-2025 11:28-0400Systolic blood khjylkjp352 mm[Hg]Princess Pizano MD Work Phone: [phone]06-20-2025 13:44-0400Body bkavdl784.6 cmHassan Rollins MD Work Phone: [facility]06-20-2025 13:44-0400 Body mass index (BMI) [Ratio]21.97 kg/o3TnorsdRj Rollins MD Work Phone: [phone])354-[address] [place], [place] [address]32006-20-2025 13:44-0400 Body .06 kgRj Rollins MD Work Phone: [phone]06-20-2025 13:44-0400 Diastolic blood ihkozqkt73 mm[Hg]Rj Rollins MD Work Phone: [phone])[address]06-20-2025 13:44-0400 Heart rate76 /minRj Rollins MD Work Phone: [phone]06-20-2025 13:44-0400 Systolic blood mtncnosk063 mm[Hg]Rj Rollins MD Work Phone: 1(814)360-[address] [place], [place] [address]32012-06-2024 12:45-0500 Diastolic blood rpisitxr92 mm[Hg]Swapna Randall MD Work Phone: [phone] [facility]12-06-2024 12:45-0500Heart rate68 /Chriss Randall MD Work Phone: [phone] [facility]12-06-2024 12:45-0500 Respiratory rate18 /Chriss Randall MD Work Phone: [phone] [facility]12-06-2024 12:45-1763DvE2% (BldA) [Mass fraction]98 %Swapna Randall MD Work Phone: [phone] [facility]12-06-2024 12:45-0500Systolic blood thyfgdax357 mm[Hg]Swapna Randall MD Work Phone: [phone] [facility]12-06-2024 11:24-0500Body ypxqak959.6 cmAjulius Randall MD Work Phone: [phone] [facility]12-06-2024 11:24-0500Body mass index (BMI) [Ratio]20.6 kg/m2Swapna Randall MD Work Phone: [phone] [facility]12-06-2024 11:24-0500Body dojfiwovbdd98.81 [degF]Swapna Randall MD Work Phone: [phone]12-[facility]-2024 11:24-0500Body ujywra86.43 kgSwapna Randall MD Work Phone: [phone]11-06-2024 11:13-0500Body .6 cmRj Rollins MD Work Phone: [phone])937-[address] [place], [place] 2832011-06-2024 11:13-0500 Body mass index (BMI) [Ratio]21.28 kg/n5LxrvnuRj Rollins MD Work Phone: [phone])435-[address] [place], [place] 2832011-06-2024 11:13-0500 Body pjnoig73.25 kgRj Rollins MD Work Phone: [phone])277-[address] [place], [place] 2832011-06-2024 11:13-0500 Diastolic blood uytpexpu27 mm[Hg]Rj Rollins MD Work Phone: 0(471)221-[address] [place], [place] [address]011-06-2024 11:13-0500 Heart rate76 /minRj Rollins MD Work Phone: [phone])524-[address] [place], [place] 28[address]011-06-2024 11:13-0500 Systolic blood vnzqrnis004 mm[Hg]Rj Rollins MD Work Phone: [phone])243-[address] [place], [place] 2832010-25-2024 13:05-0400 Body qmahwm066.6 cmPrincess Pizano MD Work Phone: [facility]10-25-2024 13:05-0400Body mass index (BMI) [Ratio]20.76 kg/d7VcszlPrincess Pizano MD Work Phone: [phone]10-25-2024 13:05-0400Body fbjtum84.88 kgPrincess Pizano MD Work Phone: [phone]10-25-2024 13:05-0400Diastolic blood mqyglbyp50 mm[Hg]Princess Pizano MD Work Phone: [phone])[facility]10-25-2024 13:05-0400Systolic blood khqtheuh878 mm[Hg]Princess Pizano MD Work Phone: [phone]06-24-2024 16:48-0400Body enkpds657.56 cm[facility]06-24-2024 16:48-0400Body mass index (BMI) [Ratio]21.7 kg/n0PeuqlcnsaTrihealth [facility]06-24-2024 16:48-0400Body zwqenbdiqmh23.5 [degF][facility]06-24-2024 16:48-0400Body kzoesv89.26 kgTrihealth [facility]06-24-2024 16:48-0400Diastolic blood fawuaoni19 mm[Hg][facility] 09-10-2023 16:48-0400Heart jgoy804 /[facility] 09-10-2023 16:48-0400Respiratory rate18 /[facility] 09-10-2023 16:48-7435CzJ5% (BldA) [Mass fraction]99 %[facility]06-24-2024 16:48-0400Systolic blood jbezmdkd684 mm[Hg][facility]04-11-2024 10:32-0400Body tykasr874.6 cmRj Rollins MD Work Phone: [facility]04-11-2024 10:32-0400 Body mass index (BMI) [Ratio]22.31 kg/d8VscsulRj Rollins MD Work Phone: [facility]04-11-2024 10:32-0400 Body pgynfn56.97 kgRj Rollins MD Work Phone: [facility]04-11-2024 10:32-0400 Diastolic blood kebwggea86 mm[Hg]Rj Rollins MD Work Phone: [facility]04-11-2024 10:32-0400 Heart rate82 /minRj Rollins MD Work Phone: [facility]04-11-2024 10:32-0400 Systolic blood zoqyrqpy174 mm[Hg]Rj Rollins MD Work Phone: [facility]02-06-2024 16:45-0500 Body sjltah983.56 cmAmbjm Duque Other noStartBull Maana Other 02-06-2024 16:45-0500Body mass index (BMI) [Ratio] 21.45 kg/k5TklalAleida Duque Other noM2G Other 02-06-2024 16:45-0500Body buhrkrudold25.5 [degF]Aleida Duque Other [facility] Other 02-06-2024 16:45-0500Body .7 kgAleida Duque Other noM2G Other 02-06-2024 16:45-0500Respiratory rate18 /minAleida Duque Other noadQuota Other 02-06-2024 16:45-9013CgA1% (BldA) [Mass fraction]99 % Aleida Duque Other noM2G Other 01-19-2024 14:53-0500Body oxgwvn905.6 cmPrincess Pizano MD Work Phone: [facility]01-19-2024 14:53-0500Body mass index (BMI) [Ratio]22.13 kg/h9DkdqdPrincess Pizano MD Work Phone: [phone]01-19-2024 14:53-0500Body yhlfjs79.51 kgPrincess Pizano MD Work Phone: [phone]01-19-2024 14:53-0500Diastolic blood ergnwnax26 mm[Hg]Princess Pizano MD Work Phone: [phone]01-19-2024 14:53-0500Systolic blood maikjgwo085 mm[Hg]Princess Pizano MD Work Phone: [phone]06-27-2023 09:21-0400Body gfykjc600.56 cmLuis Miguelerika Trupti Elizabeth Work Phone: mp429-3947TT-Iowgtwgfri-Dany 250 DO Work Phone: [phone] 09:21-0400Body mass index (BMI) [Ratio] 23.86 kg/w1Mmcgems Trupti Elizabeth Work Phone: mp316-6242HI-Gykluzphbr-[place] 250 DO Work Phone: 1(802) 249-475106-27-2023 09:21-0400Body surface area Derived from formula1.68 n5Jcacubrerika Johnson Work Phone: mp223-2156DS-Gajfsdonux-Dany 250 DO Work Phone: [phone]) [phone] 09:21-0400Body czqgxe66.05 kgLuis Miguelerika Johnson Work Phone: 1([phone]) [phone]-Hfxikirddt-[place] 250 DO Work Phone: 1(385) [phone] 09:21-0400Diastolic blood oorasntr83 mm[Hg] Isri Trupti Johnson Work Phone: [phone]) [phone]-Kctrthlkwi-[place] 250 DO Work Phone: 1(660) 577-161406-27-2023 09:21-0400Heart rate80 /minLuis Miguelerika Ocampo Elizabeth Work Phone: [phone]-Gfquuzduav-[place] 250 DO Work Phone: 1(437) 650-810906-27-2023 09:21-0400Systolic blood codliuxl121 mm[Hg] Siri Johnson Work Phone: mp761-4088BH-Deapfedvtp-[place] 250 DO Work Phone: 1([phone]) 419-586802-22-2023 13:29-0500Body plvofexvwnb09.2 [degF]Marek Weaver PA-C Work Phone: [facility]09-13-2022 10:01-0400Body rrvras199.56 cmSiri Johnson Work Phone: [phone]-Xxgpm [facility] 600 DO Work Phone: 1([phone]) 998-258109-13-2022 10:01-0400Body mass index (BMI) [Ratio] 19.36 kg/z2UhufztdSiri Johnson Work Phone: mp567-8098VO-Cgixp [facility] 600 DO Work Phone: 1(306) 716-433709-13-2022 10:01-0400Body surface area Derived from formula1.53 k1ExhlqusSiri Johnson Work Phone: mp330-6320WL-Rgckz [facility] 600 DO Work Phone: [phone])[phone] 10:01-0400Body ldykfm86.17 kgSiri Johnson Work Phone: mp748-5896CX-Memtm [facility] 600 DO Work Phone: 1(961) 230-507809-13-2022 10:01-0400Diastolic blood pevhamao96 mm[Hg] Siri Johnson Work Phone: mp628-0074SP-Spuej [facility] 600 DO Work Phone: 1([phone])[phone] 10:01-0400Heart rate72 /minSiri Johnson Work Phone: [phone]-Cfsoh [facility] 600 DO Work Phone: 1(670) 877-909709-13-2022 10:01-0400Systolic blood mm[Hg] Siri Johnson Work Phone: [phone]-Uwisv [facility] 600 DO Work Phone: 1(199) 783-834506-29-2022 11:50-0400Body riodig891.56 Homero Crocker Other [employer] Other 06-29-2022 11:50-0400Body mass index (BMI) [Ratio] 18.88 kg/z3MzfjpgDianne Crocker Other [employer] Other 06-29-2022 11:50-0400Body fuhucukjmde03 [degF]Dianne Lauramond Other [employer] Other 06-29-2022 11:50-0400Body yhueog38.9 kgDianne Crocker Other [employer] Other 06-29-2022 11:50-0400Respiratory rate18 /minDianne Crocker Other [employer] Other 06-29-2022 11:50-7909YzG1% (BldA) [Mass fraction]0 % Dianne Crocker Other [employer] Other 04-18-2022 12:00-0400Body lflwhsfzqeb70.5 [degF]Brandon Cuellar DO Work Phone: [employer]04-46-1283 12:00-0400Diastolic blood albhucih53 mm[Hg]Brandon Culelar DO Work Phone: [phone]-Pictarine04-18-2022 12:00-0400Heart rate77 /min Brandon Cuellar DO Work Phone: 1(658)638-Pictarine04-18-2022 12:00-0400Respiratory rate13 /minEugene Cuellar DO Work Phone: [employer] StudiosDqfldj65-91-1029 12:00-4046ToL5% (BldA) [Mass fraction]99 %Brandon Cuellar DO Work Phone: [phone]-Pictarine04-18-2022 12:00-0400Systolic blood ozqfmztk074 mm[Hg]Brandon Cuellar DO Work Phone: [facility]ConnectbrightZxbnnf45-64-5395 02:46-0400Body mass index (BMI) [Ratio]20.06 kg/n2Zlpdej Cuellar DO Work Phone: [facility] HealthConnectbrightXpzldg24-87-3608 02:46-0400Body gmadbf23 kg Brandon Cuellar DO Work Phone: [facility] HealthConnectbrightGoyrgo36-39-0312 13:22-0400Body oisqlj936.6 cm Brandon Cuellar DO Work Phone: [facility] HealthConnectbrightZrwzfj03-85-9980 12:45-0400Body bwkhgo751.56 cm Ethan Powers Other [facility] [employer] Other 03-23-2022 12:45-0400Body mass index (BMI) [Ratio]20.6 kg/p8ZzwitocEthan Powers Other [facility] Other 03-23-2022 12:45-0400Body uxvjhlrkvlw75.5 [degF] Ethan Powers Other [employer] Other 03-23-2022 12:45-0400Body cohmbz48.43 kgMajesse Powers Other [facility] Other 03-23-2022 12:45-0400Diastolic blood bhybcvcp57 mm[Hg] Ethan Powers Other [employer] Other 03-23-2022 12:45-6773FiG5% (BldA) [Mass fraction]98 % Ethan Powers Other [employer] Other 03-23-2022 12:45-0400Systolic blood izmvjscc096 mm[Hg] Ethan Powers Other [facility] Other 01-31-2022 15:30-0500Body vvzipd353.56 cmMacaryroro Powers Other [facility] Other 01-31-2022 15:30-0500Body mass index (BMI) [Ratio]20.6 kg/d6ArrwizdEthan Powers Other [facility] Other 01-31-2022 15:30-0500Body tdmcaspnyin93.6 [degF] Ethan Powers Other [facility] Other 01-31-2022 15:30-0500Body .43 kgMattmarianorosaline Powers Other [facility] Other 01-31-2022 15:30-0500Diastolic blood qcjmmtur98 mm[Hg] Ethan Powers Other [facility] Other 01-31-2022 15:30-2432UwJ3% (BldA) [Mass fraction]98 % Ethan Powers Other [facility] Other 01-31-2022 15:30-0500Systolic blood krtdsajf763 mm[Hg] Ethan Powers Other [employer] Other Encounters Encounter DateEncounter TypeCare ProviderFacilityStart: 01-05-2025 End: 77-46-7753zuowrwifqbNRSNARI S GRANTParkview Pueblo West Hospitaltart: 01-05-2025 End: 72-37-9135Djvnjfjnmh hospital visit by Adrián Johnson DO Work Phone: [facility] CT ScanComment on above:Personal history of tobacco useStart: 09-30-2024 End: 16-52-4668Lcrnwu outpatient visit 15 minutesPrincess Pizano MD Work Phone: ProMet[facility] Centerca Physicians Jobst VascularComment on above: Peripheral arterial disease (Primary Dx); Type 1 diabetes mellitus without complication ([facility] [place]Start: 09-30-2024 End: 90-15-5800dnucrornfkYCBUI APLINLake County Memorial Hospital - West HospitalStart: 09-09-2024 ambulatorySelect Medical [facility] AmbulatoryStart: 09-05-2024 End: 47-39-8828itltvceciaRFVNQYUAB [facility] AmbulatoryStart: 09-05-2024 End: 62-43-9080Lvgauo outpatient visit 25 minutesRj Rollins MD Work Phone: FirelandsComment on above:Essential (primary) hypertension; Mixed hyperlipidemia; PVD (peripheral vascular disease); Type 2 diabetes mellitus with other circulatory complication, with long-term current use of insulin; Statin intolerance; BMI 21.0-21.9, adult; Former smokerStart: 08-29-2024 End: 97-42-2130kyonplnfezILCSR G APLINAvita Health System HospitalStart: 08-19-2024 End: 27-67-0575elvlqasgclYIXDF G APLINPorter Medical CenterMediKettering Health Miamisburgtart: 08-06-2024 End: 83-03-5713WxgqthNrwpz G Aplin MD Work Phone: [facility] Centerca Physicians Jobst VascularComment on above: Critical limb ischemia with history of revascularization of same extremity ([facility] [place]Start: 02-22-2024 End: 25-14-4106kxlnascyymDJLF K JAINParkview Pueblo West Hospitaltart: 02-22-2024 End: 86-79-1043Puosucqgou hospital visit by Shannon Randall MD Work Phone: [facility] ORStart: 01-23-2024 End: 19-63-6671oobseesbjaILDMABCrenshaw Community Hospital AmbulatoryStart: 01-23-2024 End: 99-70-5495Wncone outpatient visit 25 minutesRj Rollins MD Work Phone: [facility] EastComment on above:Benign essential hypertension; Hyperlipidemia, unspecified hyperlipidemia type; Statin intolerance; PVD (peripheral vascular disease) ([facility]); Diabetes mellitus of other type without complication, unspecified whether retirement insulin use (Multi); Former smoker; BMI 21.0-21.9, adultStart: 01-11-2024 End: 87-73-9048Rggatq outpatient visit 15 minutesPrincess Pizano MD Work Phone: ProNoble Stanley Jobst VascularComment on above: Peripheral arterial disease ([facility]) (Primary Dx); Critical limb ischemia with history of revascularization of same extremity ([facility]) ; 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, left leg ([facility] [place])Start: 01-11-2024 End: 57-00-0548npunjmupifFMHBOSahil Faria Lolo HospitalStart: 01-07-2024 End: 30-40-5579RwgqfdHdalv G Aplin MD Work Phone: [phone] Medical CenterNoble Physicians Jobst VascularStart: 01-03-2024 End: 19-89-3857Qhtgmdslgy hospital visit by Adrián Johnson DO Work Phone: [facility] JanesvilleComment on above: Screening mammogram for breast cancerStart: 12-07-2023 End: 35-16-8149kybzlmxmguKIPIYSahil Faria Deluna HospitalStart: 12-03-2023 End: 54-12-8799RmjizbNvkdl G Aplin MD Work Phone: [facility] Jobst VascularStart: 11-03-2023 End: 59-92-3258WifmcoBirrf G Aplin MD Work Phone: [facility] Jobst VascularStart: 10-26-2023 Vasile Weaver PA-C Work Phone: OtolaryngologyComment on above:Refill RequestStart: 10-15-2023 End: 72-56-3701EgnyyfDmesq G Aplin MD Work Phone: [facility] Jobst VascularComment on above: Critical limb ischemia with history of revascularization of same extremity ([facility])Start: 10-03-2023 End: 54-86-4517IqvupzKecux G Aplin MD Work Phone: [phone] Jobst VascularStart: 09-10-2023 End: 57-49-3294Sborzimn ReferredAPRN Gisela Benita Work Phone: [facility] [place] Work Phone: Start: 09-10-2023 End: 31-58-5734bzopigitrgJierxd M [facility] Work Phone: Start: 09-10-2023 End: 81-93-0305Fmvadnb encounter procedureSampson Regional [facility] Work Phone: Start: 08-29-2023 End: 69-90-1094JqmyaqUszry G Aplin MD Work Phone: [phone] Jobst VascularStart: 06-28-2023 End: 37-58-1272Kkhifo outpatient visit 25 minutesRj Rollins MD Work Phone: FirelandsComment on above:Benign essential hypertension; Hyperlipidemia, unspecified hyperlipidemia type; Statin intolerance; PVD (peripheral vascular disease) ([facility]); Intermittent claudication ([facility]); Diabetes mellitus of other type without complication, unspecified whether buttermaker helper insulin use ([facility]); Former smokerStart: 40-86-8851EywqftSproa G Aplin MD Work Phone: [facility] Jobst VascularStart: 06-01-2023 Patience Pizano MD Work Phone: [facility] Jobst VascularStart: 05-21-2023 End: 50-49-0222Ufrrviaksq hospital visit by Adrián Johnson DO Work Phone: [facility] CT ScanComment on above:Personal history of tobacco useStart: 04-24-2023 End: 48-38-1277pmzmueaazwJqgsf Duque Other [place] Other Start: 43-20-0936Gprqib outpatient visit 25 minutes Aleida [facility] ClydeStart: 38-51-7107SpivyxQpwuj G Aplin MD Work Phone: [facility] Jobst VascularComment on above: Critical limb ischemia with history of revascularization of same extremity ([facility] [place])Start: 04-06-2023 End: 32-55-0477Klapeu outpatient visit 15 minutesPrincess Pizano MD Work Phone: [facility] Centerca Physicians Jobst VascularComment on above: Critical limb ischemia with history of revascularization of same extremity ([facility]) (Primary Dx); Bilateral carotid artery stenosisStart: 10-19-2022 End: 76-53-6242Lqhriyo encounter procedureSai Crawley MD Work Phone: noms SWS NEURComment on above:Syncope, unspecified syncope type (Primary Dx); Cognitive declineStart: 14-02-3814TcypyzNciy Rozman PA-C Work Phone: OtolaryngologyComment on above:Refill RequestStart: 19-50-2720Fxthha outpatient visit 25 minutesSiri Johnson Work Phone: [phone]-PjyohzczsvDany 250 DO Work Phone: Start: 63-07-9521thtepdtkrcCphaey [facility] Facility:[id number]: 09-11-2022 End: 64-21-8545Taqtest encounter Ayse Johnson Work Phone: [facility] [place] Work Phone: Start: 09-11-2022 End: 64-89-3040njdijvvnhtPVChin Johnson Work Phone: [facility] Work Phone: Start: 08-10-2022 End: 59-93-7366lisjozvusvPgbjvyv S GRANTFacility:FTRIVERSIDE COMMUN[facility] HOSPITALtart: 08-10-2022 End: 97-62-2244tiwsoxlvpxWughjlb S GRANTFacility:[facility] CenterStart: 05-10-2022 End: 94-98-9113twqvnpvbpxJDSEEXZ S GRANTFacility:[facility] Healthcaretart: 05-10-2022 End: 93-89-0196Lvnimjd encounter Noé Weaver PA-C Work Phone: OtolaryngologyComment on above:Chronic eczematous otitis externa of both ears (Primary Dx); Referred otalgia of both ears; TMJ dysfunction; Environmental and seasonal allergiesStart: 04-25-2022 End: 48-52-1060hbevcfgnsyFdahjmb S GRANTFacility:FTMCStart: 84-92-1997arvtjvzave Gregory S GRANTFacility:[facility] CenterStart: 03-30-2022 End: 27-33-9746oumzorlyzqLizlval S GRANTFacility:Premier Healthart: 29-45-1674Ef RenewalGregory S Elizabeth Work Phone: [phone]-YdossAllina Health [facility] 250 DO Work Phone: Start: 12-26-2021 End: 11-77-9914rscfotivcbEsxirjd S GRANTFacility:Premier Healthart: 55-13-6460Jvrzk UpdateGregory S Elizabeth Work Phone: [phone]-TksvfMonticello Hospital 600 DO Work Phone: Start: 11-30-2021 End: 53-26-2005hkglcgmkanJikldj IbrahimFacility:FTMCStart: 80-77-4679ofunwlcjfonhan [place] GrantFacility:[id number]: 56-36-6090Umbecz outpatient visit 25 minutesGregerika S Elizabeth Work Phone: [phone]-ZotpvMonticello Hospital 600 DO Work Phone: Start: 31-64-6912hijkpbqyalAnkaxqa S GRANTFacility:FM MilanStart: 09-14-2021 End: 85-39-3296kngvqojvszSekywq Dymond Other noStartBull [place] Other Start: 39-54-1452Igcjar outpatient visit 25 minutes Dianne LizzetteFPG Urgent Care ClydeStart: 06-27-2021 End: 52-19-9726Jxolzvjesa and management of inpatientARTHUR DELOS REYECleveland Clinic Mercy Hospitaltart: 06-27-2021 End: 80-97-3553Reewoxikxp and management of inpatientEugene Cuellar DO Work Phone: stvz 5C NeuroComment on above:Peripheral arterial disease (HCC) (Primary Dx); Gangrene (HCC)Start: 06-19-2021 End: 04-16-5150Oevzbsdsi department patient visitMICHAEJames Adhikari [facility] Institutetart: 06-15-2021 End: 37-45-5971hgrdcjlsufFF SIRI Ocampo GRANTFacility:A8Qcgud: 06-08-2021 End: 06-78-4624zcvwtxqpxrXmatutg Lang[place] Other noM2G Other Start: 46-41-2236Jsteax outpatient visit 25 minutes Ethan Martinez Vascular SurgeryStart: 06-06-2021 End: 23-06-3064cfjritleloBpaenmd [place] Other noM2G Other Start: 12-81-0258Kcxtppubw encounterMatthew Gio [facility] Vascular SurgeryStart: 06-03-2021 End: 13-17-7364ckkflbghdtPtmfkyq [place] Other noM2G Other Start: 60-08-3928Xorwhisap encounterMatthew Gio [facility] Vascular SurgeryStart: 05-30-2021 End: 10-21-7124pseiahlnzxYnutqr Ruttino Other [place] Other Start: 12-05-7207Dczoiiwoe encounterPhiljonabruno DarbyMark Vascular SurgeryStart: 05-25-2021 End: 78-06-2412pdwbqbpisbAQ SIRI Ocampo GRANTFacility:E3Lshre: 05-03-2021 End: 91-02-0214wuwdsbqicwQU SIRI Trupti JOHNSONFacility:J9Xppfr: 04-18-2021 End: 27-35-7024uakioohudiVlphjfi Langenberg Other [facility] [place] Other Start: 81-48-0673Pglxgj outpatient new 45 minutes Ethan LucianoG Vascular SurgeryStart: 33-32-1545Hmxifxa encounter procedureHAADI ROLLINSFacility:1532Patient encounter statusSiri Johnson Work Phone: [phone]-Prxzf [facility] 600 DO Work Phone: End: 52-92-5509Bzjyxny encounter statusSiri Johnson Work Phone: [phone]-SijaotwepnFairfax Hospital 250 DO Work Phone: Procedures DateProcedureProcedure DetailPerforming ClinicianStart: 40-68-3912QP Chest for screeningSiri Johnson DO Work Phone: Start: 43-29-2059GtvuusvbydgnkptlehdquphwcfPcgx K Jain MD Work Phone: Start: 61-95-3734Eqnt bld gluc mntr dev cleared fda spec home useUnknown Provider ResultStart: 29-99-0518Ieebnr-up visitFollow-up PRINCESS Doe APLINStart: 01-03-2024H/O: surgeryHistory of reconstructive repair of rectoceleSiri Johnson DO Work Phone: Start: 80-09-4347GvtfnghmttaQjstuj Ibrahim MD Work Phone: Start: 84-52-7386TD Chest for screeningGregory S Elizabeth DO Work Phone: Start: 30-07-6360Xdxdo 1996 panel - Serum or Plasma Marek Weaver PA-C Work Phone: Start: 07-04-2021 End: 26-39-8066Zqgijpl blood reagent stripKaitlynn Holbrook MD Work Phone: Start: 53-23-3114Nrjuayz blood reagent stripKaitlynn Holbrook MD Work Phone: Start: 36-32-7070Bxpuxdj blood reagent stripKaitlynn Holbrook MD Work Phone: Start: 85-83-0269Xifjgrg blood reagent stripKaitlynn Holbrook MD Work Phone: Start: 56-66-3644Vmufimx blood reagent stripKaitlynn Holbrook MD Work Phone: Start: 54-93-9376Uxtwdcj blood reagent stripKaitlynn Holbrook MD Work Phone: Start: 47-37-2704Cysed function panelZachary Jha DO Work Phone: Start: 07-02-2021 End: 42-54-2453Ztlpfmx blood reagent stripKaitlynn Holbrook MD Work Phone: Start: 52-89-8048Wtqkpmn blood reagent stripKaitlynn Holbrook MD Work Phone: Start: 75-09-0101Ggepxqx blood reagent stripKaitlynn Holbrook MD Work Phone: Start: 32-94-5343Kwanb function panelZachary Jha DO Work Phone: Start: 12-72-8094Hupkmfhaoomypr time partial plasma/whole bloodKaitlynn Holbrook MD Work Phone: Start: 99-03-9991Sxqcx of blood/uric acidKaitlynn Holbrook MD Work Phone: Start: 06-30-2021 End: 60-08-2201Psvaa function panelZachary Jha DO Work Phone: Start: 61-11-1709Okmnzpfpjkrlxk time partial plasma/whole bloodKiatlynn Holbrook MD Work Phone: Start: 53-00-1224Bthxe foot complete minimum 3 views Richard Price DPM Work Phone: Start: 37-29-7838Enucdrqxdrgmlt time partial plasma/whole bloodKaitlynn Holbrook MD Work Phone: Start: 33-09-5148Hubjyew blood reagent stripKaitlynn Holbrook MD Work Phone: Start: 55-01-0331Cbnpjrz blood reagent Jamie Holbrook MD Work Phone: Start: 66-04-1312Kmykl function panelZachary Jha DO Work Phone: Start: 32-52-5960Fjfkiyffhzlxtb time partial plasma/whole bloodKaitlynn Holbrook MD Work Phone: Start: 63-24-9695Nmunv count complete auto&auto difrntl wbcZachary Jha DO Work Phone: Start: 80-80-9007DOX, RAPID CITRATEDZachary Jha DO Work Phone: Start: 74-97-5736Pij routine ecg w/least 12 lds i&r onlyZachary Jha DO Work Phone: Start: 49-66-9212Ugokrrc catheterizationUnknown Provider ResultStart: 51-44-8029Sprbdlc blood reagent Jamie Holbrook MD Work Phone: Start: 85-59-5390Mhvvueuuqewkvc time partial plasma/whole bloodZachary Jha DO Work Phone: Start: 06-28-2021 End: 07-24-1254Nehdh function panelZachary Jha DO Work Phone: Start: 06-28-2021 End: 97-28-9703Taryogu blood reagent stripVirender Shana Holbrook MD Work Phone: Start: 63-18-2305Lphdbnsuzmrxty time partial plasma/whole bloodEugene Cuellar DO Work Phone: Start: 87-83-7089Dsu abdl aorta&bi iliofem w/contrast&postpZachary Jha DO Work Phone: Start: 93-18-4774Piuvyqopstgkjj time partial plasma/whole bloodEugene Cuellar DO Work Phone: Start: 25-88-5322UNHRF METABOLIC PANEL W/ REFLEX TO MG FOR LOW KZachary Jha DO Work Phone: Start: 06-27-2021 End: 85-45-5018Cwjmnqybzxf timeTricia R Ragland HEAVY EQUIPMENT ENGINE MECHANIC - LAN ADMINISTRATOR Work Phone: Start: 59-51-7187Dfceyeukmd exam chest single view Brandon Cuellar DO Work Phone: Cardiac catheterizationSiri Johnson Work Phone: Coronary artery bypass graftSiri Johnson Work Phone: H/O: surgeryHistory of reconstructive repair of rectoceleSwapna Randall MD Work Phone: Leq repairSiri Johnson Work Phone: NEGATED: Highlighted row has not occurred!Colonoscopy Siri Johnson Work Phone: Plan of Treatment DateCare ActivityDetailAuthorStart: 97-17-2276YCI patients and/or patients aged 60+ years (1 - 1-dose 60+ series)RSV patients and/or patients aged 60+ years (1 - 1-dose 60+ series)[facility] Start: 08-34-5916Sjckl panelLipid ScreeningWVUMedicine Harrison Community Hospitaltart: 08-29-2026 LIPID SCREENLIPID SCREENWVUMedicine Harrison Community Hospitaltart: 10-27-9255Djyrjjrpw for malignant neoplasm of lungLung Cancer Screening &/or CounselingBon Secours St[facility] Start: 22-91-9644Elwiacld screeningDiabetes: Retinopathy ScreeningOhio State Harding HospitalStart: 11-43-8782Yzmibhvm foot examinationDiabetic foot examBon [facility] Hospitalart: 02-74-1858OXS test (Diabetes, CKD 3-4, OR last GFR 15-59)GFR test (Diabetes, CKD 3-4, OR last GFR 15-59)[facility]art: 30-46-8641Vzmnlcrxzx A1c qrtzxnsirllV2J test (Diabetic or Prediabetic)[facility]: 89-95-7494Csabe panelLipidsBon [facility] Hospitalart: 06-43-3282Atahb screening for proteinDiabetic Alb to Cr ratio (uACR) testSmyth County Community Hospitalart: 15-56-8966Oxwlt BMI Screening Adult BMI ScreeningSamaritan North Health Center SystemStart: 18-85-0156Ujowpwy Screening Tobacco ScreeningAtrium Healthtart: 80-79-2843Sqyhns Wellness Visit (Medicare)Annual Wellness Visit (Medicare)[facility]: 80-80-9039Imwawvzbvc MonitoringDepression MonitoringBon Secours St. [facility]'S [facility] Start: 06-02-2025 End: 20-47-6196Wfsoiog encounter kapghfffn29/17/2026 2:00 PM EDT Office Visit [facility] [address] [place] [address] Siri Johnson DO [address] [place] [address] 6 mo f/[facility] Primary CareComment on above:6 mo f/uStart: 04-21-2025 End: 86-05-2941Uafxwon encounter wdteqtqzk92/03/2026 3:10 PM EST [facility] Rachna MONTSERRAT [address] [place] [address] Princess Pizano MD [id number] [place] [address] [facility] Jobst VascularStart: 04-21-2025 End: 35-26-4475Zdxcaqz encounter procedureProMedica Gordon Méndezer - VascularStart: 04-17-2025 End: 82-99-2718Izhqnih encounter qdtmgeuwf22/30/2026 2:40 PM EST Office Visit [address] [place] [phone] Rj Rollins MD [address] [facility] [address] [place] [address] [facility]: 28-00-9655Ipetd BMI ScreeningAdult BMI ScreeningProMercy Healthtart: 45-15-6924Umqiqrc ScreeningTobacco ScreeningAtrium Healthtart: 70-76-6273UAW test (Diabetes, CKD 3-4, OR last GFR 15-59)GFR test (Diabetes, CKD 3-4, OR last GFR 15-59)[facility]: 30-51-8918Akjtv panelLipidsBon [facility]: 82-55-8163Vlnzclnxc for malignant neoplasm of breastPaulding County Hospital: 25-40-4953Hspziueix for malignant neoplasm of lungLung Cancer Screening &/or CounselingBon [facility]: 31-11-4382Mbvjifoe screeningBon [facility]: 36-25-0401YIJSB-19 Vaccine ( season)COVID-19 Vaccine ( season)[facility]: 09-25-0408Bpnosrmvj vaccinationAtrium Healthtart: 12-73-8814Rstaqncz foot examinationDiabetic foot examBon [facility]: 11-05-2024 Hemoglobin A1c senvswkrtnwK5L test (Diabetic or Prediabetic)[facility]: 43-45-0683Stowsdncy vaccinationFlu vaccine (#1)[facility]: 09-05-2024 End: 52-72-3445Rsbosjo encounter achwtboue75/20/2025 1:20 PM EDT Office Visit [address] [place] [id number] Rj Rollins MD [address] [facility] [address] [place] [address] 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, left leg (CMS-HCC) Expected: 07/11/2024 (Approxima te), Expires: 01/10/2025[facility] Work Phone: Comment on above:Expected: 07/11/2024 (Approximate), Expires: 01/10/2025Start: 07-11-2024 End: 78-22-6675XA.doppler Lower extremity vessel - left for graftVas art duplex lwr graft scan left Vascular Ultrasound Routine Critical limb ischemia with history of revascularization of same extremity (CMS-HCC) 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, left leg (CMS-HCC) Expected: 07/11/2024 (Approximate), Expires: 01/10/2025[facility] CenterZood[facility] SystemComment on above:Expected: 07/11/2024 (Approximate), Expires: 01/10/2025Start: 07-11-2024 End: 08-69-8564Fjtecxn encounter procedureProMedica Gordon [facility]imaMem[facility] VascularStart: 98-45-1536Injwhxjof for malignant neoplasm of lungLow dose CT lung screening &/or counselingBON WAYNE HOSPITALStart: 05-08-2024 Depression MonitoringDepression MonitoringBON WAYNE HOSPITALStart: 72-96-7116Hoxvtzko foot examinationDiabetic foot examBON WAYNE HOSPITAL Start: 03-88-7732Raesdhibhy A1c yfhvlntxfbiI1B test (Diabetic or Prediabetic)[facility]ITALStart: 05-06-2024 End: 80-39-2764Mrmvzxv encounter qzetfjbps42/18/2025 3:30 PM EST Office Visit [facility] [address] [place] [address] Siri Johnson DO [address] [place] [address] 6 mo f/[facility] Specialty CareComment on above:6 mo f/uStart: 20-04-7924Jjgbc BMI Screening Adult BMI ScreeningAtrium Healthtart: 51-67-8684Rssxaau Screening Tobacco ScreeningAtrium Healthtart: 03-24-2024 End: 17-64-2464Atqdgbv encounter eritwlreh00/06/2025 2:00 PM EST Office Visit [facility] G[facility] [address] [place] [address] Lona Rosario, HEAVY EQUIPMENT ENGINE MECHANIC - RESERVATION SALES AGENT [address] [place] [address] f/u after [facility] GastroenterologyComment on above:f/u after EGDStart: 03-04-2024 End: 60-72-8625Tayorsp encounter hwpcnyvyi95/17/2024 3:30 PM EST Office Visit [facility] Gastroenterology [address] [place] [address] Lona Rosario, HEAVY EQUIPMENT ENGINE MECHANIC - RESERVATION SALES AGENT [address] [place] [address] f/u after [facility] GastroenterologyComment on above:f/u after EGDStart: 02-22-2024 End: 33-50-9703Cwjdiptpmqlgdpznjwqfuenyrr transoral diagnostic ESOPHAGOGASTRODUODENOSCOPY Esophageal dysphagia History of reconstructive repair of rectocele GERD (gastroesophageal reflux disease) 02/22/2024 12:15 PM ESTMLOZ GASTRO CENTERStart: 50-89-7083NRA test (Diabetes, CKD 3-4, OR last GFR 15-59) GFR test (Diabetes, CKD 3-4, OR last GFR 15-59)[facility]AREStart: 01-23-2024 End: 01-34-2652Pgoakbf encounter wjxaouhwc02/06/2024 11:00 AM EST Office Visit [place] [address] [facility] [address] [place] [phone] Rj Rollins MD [address] [facility] 2, [address] [place] [address] [facility]: 01-21-2024 End: 49-58-9740Cplvjyxwv to same day surgery ekojol9701/21/2024 9:00 AM EST - 01/21/2024 9:30 AM EST Surgery [facility] OR [address] [place] [address] [place] [address] [place] [address] [place] [address] ESOPHAGOGASTRODUODENOSCOPYProMedica [facility] ORComment on above:ESOPHAGOGASTRODUODENOSCOPYStart: 01-21-2024 End: 36-01-5659Uncczwotjchngbcbbyoqlotmrd transoral diagnostic ESOPHAGOGASTRODUODENOSCOPY Esophageal dysphagia History of reconstructive repair of rectocele GERD (gastroesophageal reflux disease) 01/21/2024 9:00 AM ESTMLOZ GASTRO CENTERStart: 44-16-7171Qbqclbixfr hospital visit by /04/2024 9:00 AM EST Hospital Encounter [facility] [place] [address] [place], [place] [address] [address] Swapna Randall MD [address] [place] [address] [facility] ORStart: 2023 End: 89-45-6334Gojpoen encounter cwrffuukd68/27/2024 1:20 PM EDT Office Visit [facility] [address] [place] [address] Princess Pizano MD [address] [place] [address] [facility] VascularStart: 12-07-2023 End: 59-96-7269Jgekmda encounter procedureProMedica Gordon [facility] - VascularStart: 84-97-9354ZAVKQ-19 Vaccine ( season)COVID-19 Vaccine ( season)[facility]art: 64-58-7853CMLBH-19 Vaccine ()COVID-19 Vaccine ()[facility] HospitalStart: 72-18-6715Epqzkxfci vaccinationOhio State Harding Hospital Start: 11-06-2023 End: 58-13-6599Ntnqamn encounter esfyhuinw47/20/2024 3:30 PM EDT Office Visit [facility] [address] [place] [address] Siri Johnson DO [address] [place] [address] 6 mo f/[facility] Specialty CareComment on above:6 mo f/uStart: 30-98-7188Opoous Wellness Visit (Medicare)Annual Wellness Visit (Medicare)[facility]art: 11-02-2023 End: 51-86-3904Khrycaa encounter yyaghuhkv00/16/2024 3:30 PM EDT Office Visit [facility] [address] [place] [address] Princess Pizano MD [address] [place] [address] [facility] VascularStart: 11-02-2023 End: 38-85-9718Ktqgrvm encounter procedureProMedica Gordon [facility] - VascularStart: 43-93-7648Hpwkvjhwz vaccinationFlu vaccine (#1)[facility] HospitalStart: 10-12-2023 End: 93-12-2500Kwsjdzy encounter procedureProMedica Gordon [facility] - VascularStart: 10-05-2023 End: 56-78-0496Kylplfx encounter mgqbiaclz55/19/2024 2:50 PM EDT Office Visit [facility] [address] [place] [address] Princess Pizano MD [address] [place] [address] [facility] VascularStart: 10-05-2023 End: 76-46-9528GS Carotid arteries - bilateralVas carotid duplex bilateral Vascular Ultrasound Routine Bilateral carotid artery stenosis Expected: 10/05/2023 (Approximate), Expires: 04/06/2024[facility] SystemComment on above:Expected: 10/05/2023 (Approximate), Expires: 04/06/2024Start: 10-05-2023 End: 95-71-6347TD.doppler Extremity arteries - bilateral for physiologic artery studyVas art doppler lwr bilat mult lev/PVR Vascular Ultrasound Routine Critical limb ischemia with history of revascularization of same extremity ([facility]) Expected: 10/05/2023 (Approximate), Expires: 04/06/2024[facility] Work Phone: Comment on above:Expected: 10/05/2023 (Approximate), Expires: 04/06/2024Start: 10-05-2023 End: 51-81-5633GS.doppler Lower extremity artery - leftVas art duplex lwr single left Vascular Ultrasound Routine Critical limb ischemia with history of re vascularization of same extremity ([facility]) Expected: 10/05/2023 (Approximate), Expires: 04/06/2024ProReg[facility] Hospital Company SystemComment on above:Expected: 10/05/2023 (Approximate), Expires: 04/06/2024Start: 10-05-2023 End: 00-14-7074Yswbjgb encounter procedureProMedica Gordon [facility] - VascularStart: 63-03-1667Haofyjgq identified in Urine by [facility] Hospitaltart: 37-15-3518Fnfdwynbup A1c measurementDiabetes: Hemoglobin O1UFliktvlxsfSumma Health Barberton CampusStart: 06-28-2023 End: 35-07-2909Zvnou metabolic 2000 panel - Serum or PlasmaBasic Metabolic Panel Lab Routine Benign essential hypertension Expected: 06/28/2023 (Approximate), Expires: 06/27/2024UnSum[facility] Campus Work Phone: Comment on above:Expected: 06/28/2023 (Approximate), Expires: 06/27/2024Start: 06-28-2023 End: 49-96-5308ACU panel - Blood by Automated countCBC Lab Routine Benign essential hypertension PVD (peripheral vascular disease) (CMS/HCC) Expected: 06/28/2023 (Approximate), Expires: 06/27/2024UnSum[facility] Work Phone: Comment on above:Expected: 06/28/2023 (Approximate), Expires: 06/27/2024Start: 06-28-2023 End: 51-29-9684Mwkgg 1996 panel - Serum or PlasmaLipid Panel Lab Routine Hyperlipidemia, unspecified hyperlipidemia type Statin intolerance PVD (keira pheral vascular disease) (CMS/HCC) Expected: 06/28/2023 (Approximate), Expires: 06/27/2024[facility] Service Area Work Phone: Comment on above:Expected: 06/28/2023 (Approximate), Expires: 06/27/2024Start: 06-14-2023 End: 00-91-7220Otgjyzn encounter wbyavtysb15/28/2024 3:00 PM EDT Appointment [facility] [address] [place] [address] Siri Johnson DO [address] [place], [place] [address] epic // pt// resecheduledMLOZ Pulmonary FunctionComment on above:epic // pt// resecheduledStart: 45-81-7314Rguyoyhoa for malignant neoplasm of breastBreast cancer screenBON SECOURS MARY IMMACULATE HOSPITALStart: 60-01-4216Vbaij panelLipidsBON SECOURS MARY IMMACULATE HOSPITALStart: 65-97-6150JZC, Provider: Rj Rollins, Status: Pen, Time: 11:20 AMFUV, Provider: Rj Rollins, Status: Pen, Time: 11:20 RGFY-Rkzxiobopl-Lrmlilzd 250 DO Work Phone: Start: 83-30-2702WSKEH-19 Vaccine () COVID-19 Vaccine ()[facility] HospitalStart: 15-11-5080Tbyuihllh vaccinationWVUMedicine Harrison Community Hospitaltart: 06-11-8749Uanznaeoq vaccinationFlu vaccine (#1)[facility]ITALStart: 09-11-2022 End: 50-68-1426JimfxxkhsUniversity Hospitals Ahuja Medical Centertart: 06-59-9865Kwyhyrlqts measurementCreatinine monitoringMemorial HospitalStart: 65-41-7039Vopoglbqa monitoringPotassium monitoringMemorial HospitalStart: 23-84-2483Panpdalm foot examinationDiabetic foot examMemorial HospitalStart: 60-82-9869Yqnozacbmv A1c hfdrqgkcusmE4O test (Diabetic or Prediabetic)Memorial HospitalStart: 31-56-4788IJO, Provider: Rj Rollins, Status: Pen, Time: 10:40 AMFUV, Provider: Rj Rollins, Status: Pen, Time: 10:40 AMRegional Hospital for [facility] 600 DO Work Phone: Start: 71-26-6625Sgwtpmldr for malignant neoplasm of breastBreast cancer [facility] HealthStart: 98-86-8039BODNKWSZXC ASSESSMENTDEPRESSION ASSESSMENTWVUMedicine Harrison Community Hospitaltart: 61-71-0656Ezgcutfay vaccinationMemorial HospitalStart: 97-74-0249Rpcgfikbqtuaco of varicella zoster vaccineZoster (Shingles) Vaccine (1 of 2)[facility]: 08-99-8957Vkmolwbop for malignant neoplasm of breastBreast cancer screenOur Lady of Mercy Hospital: 29-82-6613Pxyhbsqo Vaccine (1 of 2)Shingles Vaccine (1 of 2)[facility]: 50-42-3718JGHMGHEA VACCINE (1 of 2)SHINGRIX VACCINE (1 of 2) [facility] Hospitaltart: 72-24-7827Mkcgbz Vaccines (1 of 2)Zoster Vaccines (1 of 2)[facility]: 18-10-4590CSeO,Tdap and Td Vaccines (3 - Tdap)DTaP,Tdap and Td Vaccines (3 - Tdap)[facility]: 01-42-8156BHtI/Tdap/Td vaccine (3 - Tdap)DTaP/Tdap/Td vaccine (3 - Tdap)[facility]: 78-96-7138GLvK/Tdap/Td Vaccines (3 - Tdap) DTaP/Tdap/Td Vaccines (3 - Tdap)[facility]: 60-25-3581Pvuig microalbumin profileDTaP,Tdap,Td Vaccine (3 - Tdap)[facility] Hospitaltart: 68-67-7017UBEMTKIV SCREENDIABETES SCREENWVUMedicine Harrison Community Hospitaltart: 55-94-2492SBESFFXZJ (FIT-DNA)COLOGUARD (FIT-DNA)[facility] Hospitaltart: 89-34-2557JlvsxfzjvpuMTUJQMNLAWQRantasajd ClinicStart: 60-01-3255YZRWIRHZJV CANCER SCREENINGCOLORECTAL CANCER SCREENINGWVUMedicine Harrison Community Hospitaltart: 90-06-7213PG COLONOGRAPHYCT COLONOGRAPHYWVUMedicine Harrison Community Hospitaltart: 75-86-9769BMAOW OCCULT BLOOD FECAL OCCULT BLOODWVUMedicine Harrison Community Hospitaltart: 64-51-9431Csnyslhlf for malignant neoplasm of colonOur Lady of Mercy Hospital: 83-48-5812CLWZEYIKHNRGSYGCASXJJGCIMM [facility] Hospitaltart: 59-01-2598EyyqkbsyaouNLQARQORYOnwxzoxtd ClinicStart: 60-60-0617Wxpttucbs for malignant neoplasm of breastUnMiami Valley Hospital: 60-23-5591Mhdpdqaei B Vaccine (3 of 3 - 19+ 3-dose series) Hepatitis B Vaccine (3 of 3 - 19+ 3-dose series)[facility] Hospitaltart: 68-06-3243Mlxptgzlj B Vaccines (3 of 3 - 19+ 3-dose series)Hepatitis B Vaccines (3 of 3 - 19+ 3-dose series)[facility]: 1996 HPV TESTINGHPV TESTINGWVUMedicine Harrison Community Hospitaltart: 88-83-2336Tpntaaily for malignant neoplasm of cervixOur Lady of Mercy Hospital: 56-84-3204QOwS/Tdap/Td Vaccines (2 - Tdap) DTaP/Tdap/Td Vaccines (2 - Tdap)[facility]: 81-00-7074VFQ TESTINGPAP TESTINGWVUMedicine Harrison Community Hospitaltart: 14-75-2209Tsdlksdnm for malignant neoplasm of cervixOur Lady of Mercy Hospital: 96-57-7032ONgS/Tdap/Td vaccine (1 - Tdap)DTaP/Tdap/Td vaccine (1 - Tdap)[facility]: 90-70-5756Xwqerzzly B vaccine (1 of 3 - 19+ 3-dose series)Hepatitis B vaccine (1 of 3 - 19+ 3-dose series)Bon [facility]: 74-15-5918Tyvsrpkjp B vaccine (1 of 3 - Risk 3-dose series)Hepatitis B vaccine (1 of 3 - Risk 3-dose series)[facility]: 76-93-3382Twppvjonrsjq 50+ years Vaccine (1 of 2 - PCV)Pneumococcal 50+ years Vaccine (1 of 2 - PCV)[facility]: 1985 Pneumococcal vaccinationPneumococcal Vaccine (1 of 2 - PCV)[facility]: 11-69-6520Bgbpq microalbumin profileDTAP,TDAP,TD (1 - Tdap) [facility] Hospitaltart: 61-10-1408Kmhlo screening for proteinDiabetes: Urine Protein ScreeningUnMiami Valley Hospital: 30-50-9766Bfxmfgi ScreeningAnxiety ScreeningWVUMedicine Harrison Community Hospitaltart: 79-87-1903Glqqvvoiuf Screening Depression ScreeningWVUMedicine Harrison Community Hospitaltart: 16-83-2551Xtihwzid foot examination Diabetic Foot ExamProMercy Healthtart: 98-02-2974Grxhrqyr retinal exam Diabetic retinal examMemorial HospitalStart: 04-86-4235Bjevetkj screeningDiabetic retinal examBON [facility]: 28-88-2040IUWGIPXJF C SCREENING HEPATITIS C SCREENINGWVUMedicine Harrison Community Hospitaltart: 85-51-7329Mfabbhqau C screeningBON [facility]: 93-15-2364XWL SCREENINGHIV SCREENINGSt. [facility] Start: 43-72-8825FBR screeningHIV ScreeningWVUMedicine Harrison Community Hospitaltart: 1984 Urine screening for proteinMemorial HospitalStart: 17-96-9364BKY screeningHIV screen [facility] Hospitalart: 38-04-6687Rkfqtcudao ScreenDepression ScreenMemorial Hospital Start: 92-74-3654Qrpaqzkxnu ScreeningDepression ScreeningOhio State East Hospital Start: 60-85-3313Llvdsffq foot examinationDiabetes: Foot ExamUnMiami Valley Hospital: 66-32-1869Kxkiwpij screeningDiabetes: Retinopathy ScreeningPaulding County Hospital: 03-07-6773Nfart panelLipid screenJoint Township District Memorial Hospitalart: 28-55-6554Nqzcnyrmgavy 0-64 years Vaccine (1 - PCV) Pneumococcal 0-64 years Vaccine (1 - PCV)[facility]: 1972 Pneumococcal 0-64 years Vaccine (1 of 2 - PCV)Pneumococcal 0-64 years Vaccine (1 of 2 - PCV)[facility]: 08-34-4077Udyeckhycpng Vaccine: Pediatrics (0 to 5 Years) and At-Risk Patients (6 to 64 Years) (1 of 2 - PCV) Pneumococcal Vaccine: Pediatrics (0 to 5 Years) and At-Risk Patients (6 to 64 Years) (1 of 2 - PCV)[facility]: 01-74-3075SILUP-19 Vaccine (1)COVID-19 Vaccine (1)[facility]: 04-96-6613LMOPY-19 VACCINE (#1)COVID-19 VACCINE (#1)[facility]rt: 20-27-0777Trbuwh wellness visit [facility]: 19-23-7600Dewcoxgv screeningDiabetic Ophthalmology ExamAtrium Healthtart: 32-85-5963LGLRXBQXZ B (1 of 3 - 3-dose series)HEPATITIS B (1 of 3 - 3-dose series)[facility] Healthrt: 82-05-2731Nzvweewfc B vaccine (1 of 3 - 3-dose series)Hepatitis B vaccine (1 of 3 - 3-dose series)BETH [facility]: 69-60-7780Rfgzbrlxg C screening Hepatitis C screenOur Lady of Mercy Hospital: 17-94-6263ZAE screeningHIV Screening [facility]: 34-41-5520Zthhn panelLipid Panel [facility]: 02-41-8626Jnzdvppep for malignant neoplasm of colonUnMiami Valley Hospital: 18-44-6079Ftllcd Use: CardiovascularStatin Use: CardiovascularProMercy Healthtart: 1966 Statin Use: DiabeticStatin Use: DiabeticAtrium Healthtart: 1966 Urine screening for proteinDiabetes: Urine Protein ScreeningPaulding County Hospital: 85-09-8098Tvrhsz Adult PhysicalYearly Adult Physical [facility]24 hour urine copper output measurement [facility]24 hour urine measurementTrihealth Bethesda Butler HospitalAlbumin [Mass/volume] in Serum or PlasmaTrihealth Bethesda Butler HospitalAlbumin/Globulin ratioTrihealth Bethesda Butler HospitalAngiotensin converting enzyme [Enzymatic activity/volume] in Serum or PlasmaTrihealth Bethesda Butler HospitalArsenic measurementTrihealth [facility] Hospital Borrelia burgdorferi Ab [Interpretation] in SerumTrihealth Bethesda Butler HospitalBorrelia burgdorferi IgG Ab [Presence] in Serum or Plasma by Immunoassay [facility] HospitalBorrelia burgdorferi IgG+IgM Ab [Presence] in Serum by ImmunoassayTrihealth Bethesda Butler HospitalBorrelia burgdorferi IgM Ab [Presence] in Serum or Plasma by ImmunoassayTrihealth Bethesda Butler Hospital End: 59-23-9512Lwrnyjttwkphwni and angiography procedure details panelDiagnostic Cardiac Tunneling Machine Operator Procedure Cardiac Cath Routine One Time for 1 Occurrences starting 06/28/2021 until 06/28/2021[facility] [employer] Work Phone: comment on above:One Time for 1 Occurrences starting 06/28/2021 until 2Ceruloplasmin [Mass/volume] in Serum or Plasma [facility] HospitalCopper measurementTrihealth Bethesda Butler Hospital End: 70-04-9777BLW Breast - bilateral screeningChildren's Hospital of [facility] on above:1 Occurrences starting 01/03/2024 until 01/03/2024 End: 35-11-8130QKC 12 LeadEKG 12 Lead ECG Routine One Time for 1 Occurrences starting 06/27/2021 until 06/27/2021[facility] [employer] Work Phone: comment on above:One Time for 1 Occurrences starting 06/27/2021 until 06/27/2021Electrophoresis: edcoc-0-bsncqvmoTpbryfmovTrihealth Bethesda Butler HospitalElectrophoresis: hdpxu-5-fsxpvpmjWscoehaqfTrihealth Bethesda [facility] Hospital Electrophoresis: beta-globulinTrihealth Bethesda Butler HospitalElectrophoresis: gamma globulinTrihealth Bethesda Butler HospitalGlobulin [Mass/volume] in Serum [facility] HospitalGlucose [Mass/volume] in Serum or PlasmaPOCT Glucose Point of Care Testing STAT As Needed until discontinued starting 06/28/2021[facility] [employer] Work Phone: comment on above:As Needed until discontinued starting 06/28/2021Glucose [Mass/volume] in Serum or PlasmaPOCT glucose Point of Care Testing STAT As Needed until discontinued starting 02/22/2024on [facility]RouteBarn[facility] on above:As Needed until discontinued starting 02/22/2024 Homocysteine [Moles/volume] in Serum or [facility] Homogenous nuclear Ab pattern [Titer] in [facility] IgA [Mass/volume] in Serum or [facility] HospitalIgG [Mass/volume] in Serum or [facility] HospitalIgM [Mass/volume] in Serum or [facility] HospitalImmunofixation for UrineTrihealth Bethesda Butler HospitalLead [Presence] in BloodTrihealth Bethesda Butler HospitalMeasurement of monoclonal protein concentrationTrihealth Bethesda Butler HospitalMercury [Mass/volume] in BloodTrihealth Bethesda Butler HospitalMethylmalonate [Moles/volume] in Serum or White HospitalNasal Cannula OxygenNasal Cannula Oxygen Respiratory Care Routine Daily until discontinued starting 06/30/2021[facility] [employer] Phone: comment on above:Daily until discontinued starting 06/30/2021Nuclear Ab [Titer] in [facility] End: 47-19-9354NVYGWKXH [facility] Work Phone: comment on above:Once for 1 Occurrences starting 06/27/2021 until 06/27/2021rotein [Mass/volume] in Serum or PlasmaTrihealth Bethesda Butler HospitalProtein [Mass/volume] in UrineTrihealth Bethesda Butler HospitalPyridoxine [Mass/volume] in Serum or PlasmaTrihealth Bethesda Butler HospitalReagin Ab [Presence] in Serum by RPRFMercer County Community Hospital Rheumatoid factor [Units/volume] in Serum or PlasmaUniversity Hospitals Ahuja Medical Centererum immunofixationUniversity Hospitals Ahuja Medical Centeromatotropin [Mass/volume] in Serum or PlasmaTrihealth Bethesda Butler HospitalThallium [Mass/volume] in Serum or [facility] End: 22-14-5825Ivvmg , POCTUrine , POCT Point of Care Testing STAT One Time for 1 Occurrences starting 02/22/2024 until 02/22/2024on [facility] HospitalDokkankom Memorial HospitalComment on above:One Time for 1 Occurrences starting 02/22/2024 until 02/22/2024West Nile virus IgG Ab [Presence] in Serum by Immunoassay [facility] HospitalWest Nile virus IgM Ab [Presence] in Serum by ImmunoassayTrihealth Bethesda Butler HospitalZinc [Mass/volume] in Serum or PlasmaTrihealth Bethesda Butler Hospital Immunizations Immunization DateImmunizationNotesCare RvdhepblXzahcywk65-26-9500oppkfacje B vaccine, adult dosageHaadi Rollins MD Work Phone: [facility]08-23-2005measles, mumps and rubella virus vaccineRj Rollins MD Work Phone: [facility] Work Phone: [phone]fzysqz B vaccine, adult dosageRj Rollins MD Work Phone: [facility] Work Phone: [phone](adult) unspecified formulationGregory Elizabeth DO Work Phone: bon [facility] HospitalDokkankom [facility] Sokndi30-09-1436zvdrpqbypv, tetanus toxoids and pertussis vaccineRj Rollins MD Work Phone: [facility] Work Phone: [phone]ldy, mumps and rubella virus vaccine Rj Rollins MD Work Phone: [facility] Work Phone: Payers DatePayer CategoryPayerPolicy [id number] Eligibility Medicare/Medicaid [employer]areANTHEM DUAL ADVANTAGE .[id number] 2024MedicareANTHEMMedicareANTHEM MEDICARE ANTHEM MEDICARE ADVANTAGE [id number] 2023-Present [phone] [address] [place] [id number] 2024Medicare HMOANTHEM MEDICARE Member Subscriber Plan / Payer (Effective 2023-Present) Name: Khris Mcgowan Relation to Subscriber: Self Name: Khris Mcgowan Payer ID: [id number] (NAIC) Group ID: [id number] Type: Not on file Address: [address] [place] [id number] [id number] [id number] 2023Self-pay [id number] 2023Medicaid [id number] 2020Unknown2020Medicaid [id number] 2.840.1.819919.3.57[id number] 2.840.1.066807.3.57[id number] 2.840.1.769624.3.57[id number] 2.840.1.610311.3.57[id number] 2.840.1.079655.3.57[id number] 2.840.1.754745.3.57[id number] 2.16840.1.707008.3.57[id number] 2.16840.1.808462.3.57[id number] 2.16840.1.386739.3.57[id number] 2.840.1.826868.3.57[id number] 2.16.840.1.534594.3.57[id number] 2.16840.1.181627.3.57[id number] 2.16840.1.153046.3.57[id number] 2.840.1.730970.3.57[id number] 2.840.1.851668.3.57[id number] 2.0.1.519807.3.57[id number] 2.840.1.305508.3.57[id number] 2.0.1.539631.3.57[id number] 2.0.1.980149.3.57[id number] 2.840.1.603209.3.57[id number] 2.0.1.518741.3.57[id number] 2.840.1.365014.3.57[id number] 2.840.1.816947.3.57[id number] 2.840.1.297005.3.57[id number] 2.840.1.148919.3.57[id number] 2.16.840.1.435499.3.57[id number] 2.16.840.1.157972.3.57[id number] 2.16.840.1.834040.3.57[id number] 2..840.1.941940.3.57[id number] 2.16.840.1.055249.3.57[id number] 2.16.840.1.122943.3.57[id number] [id number] 2.16.840.1.8[id number] 2.16840.1.778852.3.579.2.531 Social History DateTypeDetailFacilityStart: 06-19-2021 End: 71-59-1554Wxbugso smoking status NHISEx-smokerMemorial HospitalStart: 03-19-1985 End: 80-62-0893Dnufvgb of tobacco useCurrent smokerOhiohealth Van [facility] [employer] Phone: start: 06-19-2021 End: 68-24-8544Ahgozpa use and exposureSmokeless tobacco non-userWilson HealthAVI [employer] Phone: start: 06-30-2021 End: 11-95-7765Kqvqvix intakeCurrent drinker of alcohol (finding)[email or web address] Phone: start: 36-59-9511Glmuivu SDOH Alcohol Comment Couple times a week [facility] Work Phone: start: 26-28-7357Fld Assigned At BirthNot on damionOhiohealth Van Wert Hospital Health Work Phone: start: 06-19-2021 End: 12-05-2979Kfkdefam to SARS-CoV-2 (event)Not sureOhiohealth Van Wert Hospital HealthStart: 05-10-2022 End: 30-29-9371Lly Assigned At [facility] [place] Other Start: 05-10-2022 End: 73-46-0958Qangapjk useCaffeine useMP-[facility] [address] DO Work Phone: Comment on above:COFFEE 4 TIMES A WEEK, DIET PEPSI 4 TIMES A WEEK, OCCASIONAL UNSWEET TEA;QUIT SMOKING 2020;Start: 03-19-1985 End: 47-66-5329Prmjcfe of tobacco useCigarette SmokerWVUMedicine Harrison Community Hospitaltart: 79-38-6959Car Assigned At [facility] HospitalNational Score (1-100), lower number is lower fgil47Hamxjtefs ClinicStart: 08-27-2022 Tobacco smoking status NHISSmokes tobacco dailyNOMI HealthcareStart: 08-27-2022 Alcohol intakeEx-drinker (finding)[facility](I/We) worried whether (my/our) food would run out before (I/we) got money to buy more.Never trueBON SecondMic HEALTHAt any time in the past 12 months, were you homeless or living in half-way [including now]?NoBON SecondMic HEALTHStart: 47-20-4488Zxpdcmu CommentsociallyOhio State Harding Hospital Work Phone: Start: 41-80-6392Pkqvqez CommentsocialProMedial Health SystemStart: 04-28-2012 End: 40-34-1253HvzAdkeyq (finding)[facility] SystemHow often to you have a drink containing alcohol?2-4 times a monthBon SecVcommerce HealthHow many standard drinks containing alcohol do you have on a typical day?1 or 2Bon SecVcommerce HealthHow often do you have 6 or more drinks on 1 occasion?Never [facility] Medical Equipment Procedure CodeEquipment CodeEquipment Original TextEquipment IdentifierDates Multiple peripheral artery stent, bare-metal [id number] FDAStart: 21-33-3151ZSAU BLOOD SUGAR UP TO 10 TIMES A [id number]: 57-56-9684Ixxlo Cv 8x.8cm N-Pyrg Tpr End Photofix Decellularized Bvn Rpl [id number] - [id number]: 93-04-9319Lasbnal on above:Description: LEFT FEMORAL ARTERY Goals DatePatient GoalDesired Activity/StatePersonal health goalComment on above: Evaluation of progress towards goal: Discharge home with family support/ self care Clinical Notes 04-18-2021 to 09-30-2024 Note Date & SkibWvhcPckabekf02-27-3362 History of Present illness Narrative* Princess Pizano MD - 09/30/2024 11:30 AM EDT Images from the original note were not included. [facility] [address] [place] [address] Subjective: Patient ID: Khris Mcgowan is a 58 y.o. female. Chief Complaint Chief Complaint Patient presents with Follow-up Discuss ultrasound results History of Present Illness: This is a 59-year-old female with a history of a left fem-pop bypass that was done in 2021 for critical limb ischemia. She continues to do pretty well. She had had several things done to her leg but ultimately we ended up doing a bypass in the left leg and she has done really well she is able to walk has limitation overall happy with the progress. She is here to review results today. Patient Active Problem List Diagnosis Gangrenous toe (CMS-HCC) Peripheral artery disease Diabetes mellitus (CMS-HCC) Type 1 diabetes mellitus (CMS-HCC) Dyspareunia Gangrene (CMS-HCC) Lung nodules Primary hypertension Urinary retention Peripheral arterial disease Current Outpatient Medications: albuterol (ACCUNEB) 0.63 mg/3 mL nebulizer solution, 3 mL (0.63 mg total)., Disp: , Rfl: AMLODIPINE BESYLATE, BULK, MISC, Apply 10 mg to the mouth or throat in the morning., Disp: , Rfl: amLODIPine-valsartan (EXFORGE) 5-160 mg per tablet, Take 1 tablet by mouth in the morning., Disp: ,Rfl: aspirin 81 mg chewable tablet, CHEW AND SWALLOW 1 TABLET IN THE MORNING, Disp: 90 tablet, Rfl: 1 cholecalciferol, vitamin D3, 2,000 units capsule, Take 1 capsule (2,000 Units total) by mouth in the morning., Disp: , Rfl: clopidogreL (PLAVIX) 75 mg tablet, TAKE 1 TABLET (75 MG TOTAL) BY MOUTH IN THE MORNING, Disp: 90 tablet, Rfl: 1 desvenlafaxine (PRISTIQ) 25 mg 24 hr tablet, TAKE 1 TABLET BY MOUTH EVERY DAY IN ADDITION TO 50MG TABLET, Disp: , Rfl: MegaBits G7 SENSOR device, USE FOR CONTINUOUS BLOOD GLUCOSE MONITORING, REPLACE EVERY 10 DAYS, Disp: , Rfl: erythromycin (ILOTYCIN) ophthalmic ointment, APPLY 1 INCH TO LEFT EYE THREE TIMES A DAY FOR 5 DAYS,Disp: , Rfl: famotidine (PEPCID) 20 mg tablet, Take 1 tablet (20 mg total) by mouth., Disp: , Rfl: fluconazole (DIFLUCAN) 150 mg tablet, Take 1 tablet (150 mg total) by mouth once., Disp: , Rfl: fluticasone furoate-vilanteroL (BREO ELLIPTA) 200-25 mcg/dose blister with device, INHALE 1 PUFF BYMOUTH ONCE A DAY, Disp: , Rfl: HumaLOG U-100 Insulin 100 unit/mL injection, DOSING PER INSULIN PUMP. MAX DOSING 37 UNITS PER DAY.,Disp: , Rfl: ibuprofen (ADVIL,MOTRIN) 600 mg tablet, Take 1 tablet (600 mg total) by mouth every 8 (eight) hoursas needed for pain., Disp: 30 tablet, Rfl: 0 insulin aspart U-100 (NovoLOG) 100 unit/mL (3 mL) insulin pen, Inject under the skin., Disp: , Rfl: levothyroxine (SYNTHROID, LEVOTHROID) 50 MCG tablet, Take 1 tablet (50 mcg total) by mouth., Disp: , Rfl: lisdexamfetamine (VYVANSE) 60 mg capsule, Take 1 capsule (60 mg total) by mouth., Disp: , Rfl: LORazepam (ATIVAN) 0.5 mg tablet, Take 1 tablet (0.5 mg total) by mouth nightly., Disp: , Rfl: methylPREDNISolone (MEDROL) 4 mg tablet, Take by mouth., Disp: , Rfl: metoprolol tartrate (LOPRESSOR) 25 mg tablet, Take 0.5 tablets (12.5 mg total) by mouth., Disp: , Rfl: moxifloxacin (VIGAMOX) 0.5 % ophthalmic solution, , Disp: , Rfl: ofloxacin (OCUFLOX) 0.3 % ophthalmic solution, INSTILL 1 DROP INTO RIGHT EYE 4 TIMES A DAY BEGIN AFTER 1ST POST-OP EXAM, Disp: , Rfl: ondansetron (ZOFRAN) 4 mg tablet, TAKE 1 TABLET ORALLY DAILY NEEDED FOR NAUSEA AND VOMITING FOR 3 DAYS, Disp: , Rfl: ondansetron ODT (ZOFRAN ODT) 4 mg disintegrating tablet, Dissolve on tongue every 12 (twelve) hours., Disp: , Rfl: pantoprazole (PROTONIX) 40 mg EC tablet, Take 1 tablet (40 mg total) by mouth., Disp: , Rfl: PRALUENT PEN 75 mg/mL pen injector, , Disp: , Rfl: PREMARIN 0.3 mg tablet, Take 1 tablet (0.3 mg total) by mouth., Disp: , Rfl: progesterone (PROMETRIUM) 200 mg capsule, Take 1 capsule (200 mg total) by mouth., Disp: , Rfl: valACYclovir (VALTREX) 1000 mg tablet, Take 1 tablet (1,000 mg total) by mouth., Disp: , Rfl: valsartan (DIOVAN) 80 mg tablet, Take 1 tablet (80 mg total) by mouth., Disp: , Rfl: acetaminophen (TYLENOL EXTRA STRENGTH) 500 mg tablet, Take 2 tablets (1,000 mg total) by mouth every 6 (six) hours as needed for pain. (Patient not taking: Reported on 01/11/2024), Disp: 30 tablet, Rfl: 0 amoxicillin-pot clavulanate (AUGMENTIN) 875-125 mg per tablet, Take 1 tablet by mouth every 12 (twelve) hours. (Patient not taking: Reported on 09/30/2024), Disp: , Rfl: buPROPion XL (WELLBUTRIN XL) 150 mg 24 hr tablet, Take 1 tablet (150 mg total) by mouth. (Patient not taking: Reported on 09/30/2024), Disp: , Rfl: cyclobenzaprine (FLEXERIL) 10 mg tablet, Take 1 tablet (10 mg total) by mouth in the morning and 1 tablet (10 mg total) at noon and 1 tablet (10 mg total) before bedtime. (Patient not taking: Reported on 09/30/2024), Disp: 30 tablet, Rfl: 0 fenofibrate (FENOGLIDE) 120 MG tablet, Take by mouth daily. (Patient not taking: Reported on 09/30/2024), Disp: , Rfl: fenofibrate (TRICOR) 145 mg tablet, Take 1 tablet (145 mg total) by mouth. (Patient not taking: Reported on 09/30/2024), Disp: , Rfl: gabapentin (NEURONTIN) 100 mg capsule, Take 1 capsule (100 mg total) by mouth in the morning and 1 capsule (100 mg total) at noon and 1 capsule (100 mg total) before bedtime. (Patient not taking: Reported on 09/30/2024), Disp: 60 capsule, Rfl: 2 losartan (COZAAR) 100 mg tablet, Take 1 tablet (100 mg total) by mouth in the morning. (Patient nottaking: Reported on 09/30/2024), Disp: , Rfl: meloxicam (MOBIC) 15 mg tablet, Take 1 tablet (15 mg total) by mouth in the morning. (Patient not taking: Reported on 09/30/2024), Disp: , Rfl: metoprolol succinate XL (TOPROL XL) 25 mg 24 hr tablet, Take by mouth daily. (Patient not taking: Reported on 09/30/2024), Disp: , Rfl: naloxone (NARCAN) 4 mg/actuation spray,non-aerosol nasal spray, Administer 1 spray (4 mg total) into alternating nostrils as needed for opioid reversal. (Patient not taking: Reported on 01/11/2024), Disp: 1 each, Rfl: 0 naproxen (NAPROSYN) 500 mg tablet, Take 500 mg by mouth in the morning and 500 mg before bedtime. (Patient not taking: Reported on 09/30/2024), Disp: , Rfl: NIFEdipine XL (PROCARDIA XL) 30 mg 24 hr tablet, Take 1 tablet (30 mg total) by mouth in the morning. (Patient not taking: Reported on 09/30/2024), Disp: , Rfl: nitroglycerin (NITRO-BID) 2 % ointment, Place 0.5 inches on the skin. (Patient not taking: Reportedon 09/30/2024), Disp: , Rfl: pravastatin (PRAVACHOL) 10 mg tablet, Take 10 mg by mouth in the morning. (Patient not taking: Reported on 09/30/2024), Disp: , Rfl: rivaroxaban (XARELTO) 2.5 mg tablet, Take 1 tablet (2.5 mg total) by mouth in the morning and 1 tablet (2.5 mg total) before bedtime., Disp: 60 tablet, Rfl: 5 rosuvastatin (CRESTOR) 40 mg tablet, Take 1 tablet (40 mg total) by mouth in the morning. (Patient not taking: Reported on 09/30/2024), Disp: , Rfl: sulfamethoxazole-trimethoprim (BACTRIM DS) 800-160 mg per tablet, Take 1 tablet by mouth in the morning and 1 tablet before bedtime. (Patient not taking: Reported on 09/30/2024), Disp: , Rfl: varenicline (CHANTIX) 0.5 mg tablet, Take 1 tablet (0.5 mg total) by mouth in the morning and 1 tablet (0.5 mg total) before bedtime. (Patient not taking: Reported on 09/30/2024), Disp: , Rfl: The following portions of the patient's history were reviewed and updated as appropriate: allergies, current medications, past family history, past medical history, past social history, past surgicalhistory and problem list. Review of Systems: Objective: Vitals BP (!) 160/100 (BP Site: Left Arm, BP Postition: Sitting, BP CUFF SIZE: M (9-13 inches)) Pulse 75 Ht 162.6 cm (5' 4 ) Wt 57.2 kg (126 lb) SpO2 99% BMI 21.63 kg/m Physical Exam Constitutional: No acute distress, alert and oriented to person, place, and time. HEENT: PERRLA, mucous membranes moist. Chest: Nonlabored breathing Skin: Warm dry well perfused no to minimal edema in her ankles. Pulses: Pulses 1+ palpable bilaterally Studies Reviewed No results found for: DDIMER Lab Results Component Value Date GLU 163 (H) 08/29/2021 CALCIUM 9.7 08/29/2021 SODIUM 138 08/29/2021 K 4.2 08/29/2021 CO2 26 08/29/2021 BUN 13 08/29/2021 CREATININE 1.08 (H) 08/29/2024 Lab Results Component Value Date WBC 4.7 07/20/2021 HGB 8.1 (L) 07/20/2021 HCT 23.9 (L) 07/20/2021 MCV 94 07/20/2021 PLT 364 07/20/2021 No results found. Assesment: Khris was seen today for follow-up. Diagnoses and all orders for this visit: Peripheral arterial disease - rivaroxaban (XARELTO) 2.5 mg tablet; Take 1 tablet (2.5 mg total) by mouth in the morning and 1 tablet (2.5 mg total) before bedtime. Type 1 diabetes mellitus without complication ([facility]-HCC) Plan Plan: I reviewed with her expectations we reviewed her imaging her bypass grafts widely patent her ABIs are normal. I did refill her Xarelto 2.5 mg at today's visit. Plan will be retirement 2.5 mg of Xarelto and Plavix. Follow up in 1 year with repeat imaging of her bypass graft. This note was created with the assistance of a speech recognition program. While intending to generate a timely document that accurately reflects the content of the visit, no guarantee can be provided that every grammatical or spelling mistake has been or will be identified or corrected. Thank you for your understanding. PRINCESS PIZANO MD documented in this encounterOhio [facility] History of Present illness Narrative* Rj Rollins MD - 09/05/2024 1:20 PM EDT HPI Patient is in the office for follow-up for essential hypertension, dyslipidemia who has vascular disease followed by vascular surgery in [place]. She follows with Dr. Johnson for her diabetes. The patient has had no cardiac events since her last visit. She noticed recently some numbness and coldness in the left toes for which she is seeing vascular surgery in [place] and investigations are underway. Her medical therapy was reviewed and currently she is on dual antiplatelet therapy. Her lab data that were done recently including creatinine were noted to be normal and this was shared with her. Her weight is ideal, her blood pressure is normal. Her physical examination essentially normal. The patient is highly motivated. She does not smoke. ASSESSMENT AND PLAN: 1. Essential hypertension, currently under control medical therapy which will be left unchanged, renal function is normal. Patient follows low-salt diet and has achieved ideal body weight and remainsphysically active. 2. Hyperlipidemia. Intolerant to statin. Under excellent control on Praluent, she follows low-fat diet and maintain ideal body weight and exercise regularly. 3. Type II diabetes, managed by , seems to be under control. Patient is follows low carbohydrate diet and try to achieve healthy lifestyle. 4. Severe PAD mostly involving the left lower extremity status post surgical revascularization 2021followed by vascular surgery in [facility] in [place]. Aggressive risk factor modification was emphasized. Discussed with the patient again considering vascular dose Xarelto replacing Plavix as a better way to treat her PAD. She will discuss that with vascular surgery in [place] 5. Intolerance to statin ROS Numbness in the left foot, other review of system was normal Vitals: 09/05/24 1344 BP: 132/88 BP Location: Left arm Patient Position: Sitting Pulse: 76 Weight: 58.1 kg (128 lb) Height: 1.626 m (5' 4 ) Objective Physical Exam Constitutional: Appearance: Normal appearance. HENT: Nose: Nose normal. Neck: Vascular: No carotid bruit. Cardiovascular: Rate and Rhythm: Normal rate. Pulses: Normal pulses. Heart sounds: Normal heart sounds. Pulmonary: Effort: Pulmonary effort is normal. Abdominal: General: Bowel sounds are normal. Palpations: Abdomen is soft. Musculoskeletal: General: Normal range of motion. Cervical back: Normal range of motion. Right lower leg: No edema. Left lower leg: No edema. Skin: General: Skin is warm and dry. Neurological: General: No focal deficit present. Mental Status: She is alert. Psychiatric: Mood and Affect: Mood normal. Behavior: Behavior normal. Thought Content: Thought content normal. Judgment: Judgment normal. Allergies Latex and Vwxueit-mty-ghl reductase inhibitors Current Medications Current Outpatient Medications Medication Instructions albuterol 90 mcg/actuation inhaler 2 puffs, Every 4 hours PRN ALPRAZolam (XANAX) 0.25 mg, Nightly PRN amlodipine-valsartan (Exforge) 5-160 mg tablet 1 tablet, oral, Daily aspirin 81 mg, Daily cetirizine (ZYRTEC) 10 mg, As needed clopidogrel (PLAVIX) 75 mg, Daily desvenlafaxine (PRISTIQ) 50 mg, Daily desvenlafaxine succinate (PRISTIQ) 25 mg, Daily dupilumab (DUPIXENT PEN SUBQ) Every 14 days HumaLOG U-100 Insulin 100 unit/mL injection DOSING PER INSULIN PUMP. MAX DOSING 37 UNITS PER DAY. ibuprofen 800 mg, As needed lisdexamfetamine (VYVANSE) 50 mg, Every morning metoprolol tartrate (LOPRESSOR) 25 mg, oral, Daily ondansetron ODT (ZOFRAN-ODT) 4 mg, As needed Praluent Pen 75 mg, injection, Every 14 days Assessment/Plan 1. Essential (primary) hypertension Follow Up In Cardiology Follow Up In Cardiology amlodipine-valsartan (Exforge) 5-160 mg tablet metoprolol tartrate (Lopressor) 25 mg tablet 2. Mixed hyperlipidemia alirocumab (Praluent Pen) 75 mg/mL pen injector 3. PVD (peripheral vascular disease) alirocumab (Praluent Pen) 75 mg/mL pen injector 4. Type 2 diabetes mellitus with other circulatory complication, with long-term current use of insulin alirocumab (Praluent Pen) 75 mg/mL pen injector 5. Statin intolerance alirocumab (Praluent Pen) 75 mg/mL pen injector 6. BMI 21.0-21.9, adult 7. Former smoker Scribe Attestation By signing my name below, Payal Chavira LPN, Scribe attest that this documentation has been prepared under the direction and in the presence of Rj Rollins MD. Provider Attestation - Scribe documentation All medical record entries made by the Scribe were at my direction and personally dictated by me. Aydee reviewed the chart and agree that the record accurately reflects my personal performance of the history, physical exam, discussion and plan. documented in this encounterOhio [facility] Work Phone: 1(838) 382-986106-20-2025 Instructions* Patient Instructions* Payal Rascon LPN - 09/05/2024 1:20 PM EDT Please bring all medicines, vitamins, and herbal supplements with you when you come to the office. Prescriptions will not be filled unless you are compliant with your follow up appointments or have a follow up appointment scheduled as per instruction of your physician. Refills should be requested at the time of your visit. documented in this encounterOhio State [facility]ing [facility] Work Phone: 1(539) 265-377011-06-2024 History of Present illness Narrative* Rj Rollins MD - 01/23/2024 11:00 AM EST Fany Mcgowan is a 58 y.o. female Chief Complaint Follow-up HPI Patient is in the office for follow-up for severe vascular disease as noted below. Since her last visit she has remained stable with no indication of any recent cardiovascular events. Lab data from December 2023 were reviewed and her numbers look on target. She does not smoke and has been highly motivated and has been compliant with medical therapy. She question the safety of taking estrogen therapy at her age for postmenopausal symptoms. 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 Short-term use of dual could be tried. ASSESSMENT AND PLAN: 1. Essential hypertension, currently under control medical therapy which will be left unchanged, basic metabolic profile is ordered 2. Hyperlipidemia. Intolerant to statin. Under excellent control on Praluent 3. Type II diabetes, managed by , seems to be under control. 4. Severe PAD mostly involving the left lower extremity status post surgical revascularization 2021followed by vascular surgery in [facility] in [place]. Aggressive risk factor modification was emphasized. Patient could not afford vascular dose Xarelto due to cost and she is taking aspirin Plavix only. Review of Systems Cardiovascular: Positive for leg swelling. All other systems reviewed and are negative. Vitals: 01/23/24 1113 BP: 132/86 BP Location: Right arm Patient Position: Sitting Pulse: 76 Weight: 56.2 kg (124 lb) Height: 1.626 m (5' 4 ) Objective Physical Exam Constitutional: Appearance: Normal appearance. HENT: Nose: Nose normal. Neck: Vascular: No carotid bruit. Cardiovascular: Rate and Rhythm: Normal rate. Pulses: Normal pulses. Heart sounds: Normal heart sounds. Pulmonary: Effort: Pulmonary effort is normal. Abdominal: General: Bowel sounds are normal. Palpations: Abdomen is soft. Musculoskeletal: General: Normal range of motion. Cervical back: Normal range of motion. Right lower leg: No edema. Left lower leg: No edema. Skin: General: Skin is warm and dry. Neurological: General: No focal deficit present. Mental Status: She is alert. Psychiatric: Mood and Affect: Mood normal. Behavior: Behavior normal. Thought Content: Thought content normal. Judgment: Judgment normal. Allergies Latex and Vztqmza-zpx-rgl reductase inhibitors Current Medications Current Outpatient Medications: albuterol 90 mcg/actuation inhaler, Inhale 2 puffs every 4 hours if needed for wheezing., Disp: , Rfl: aspirin 81 mg EC tablet, Take 1 tablet (81 mg) by mouth once daily., Disp: , Rfl: cetirizine (ZyrTEC) 10 mg tablet, Take 1 tablet (10 mg) by mouth if needed., Disp: , Rfl: clopidogrel (Plavix) 75 mg tablet, Take 1 tablet (75 mg) by mouth once daily., Disp: , Rfl: desvenlafaxine 50 mg 24 hr tablet, Take 1 tablet (50 mg) by mouth once daily., Disp: , Rfl: desvenlafaxine succinate (Pristiq) 25 mg 24 hour tablet, Take 1 tablet (25 mg) by mouth once daily., Disp: , Rfl: dupilumab (DUPIXENT PEN SUBQ), Inject under the skin every 14 (fourteen) days., Disp: , Rfl: ibuprofen 800 mg tablet, Take 1 tablet (800 mg) by mouth if needed for moderate pain (4 - 6)., Disp: , Rfl: lisdexamfetamine (Vyvanse) 50 mg capsule, Take 1 capsule (50 mg) by mouth once daily in the morning., Disp: , Rfl: metoprolol tartrate (Lopressor) 25 mg tablet, TAKE 1 TABLET DAILY, Disp: 90 tablet, Rfl: 3 NovoLOG U-100 Insulin aspart 100 unit/mL injection, , Disp: , Rfl: ondansetron ODT (Zofran-ODT) 4 mg disintegrating tablet, Take 1 tablet (4 mg) by mouth if needed for nausea or vomiting., Disp: , Rfl: Praluent Pen 75 mg/mL pen injector, INJECT SUBCUTANEOUSLY ONCE EVERY 2 WEEKS, Disp: 6 Pen, Rfl: 3 amlodipine-valsartan (Exforge) 5-160 mg tablet, Take 1 tablet by mouth once daily., Disp: 90 tablet, Rfl: 3 Assessment/Plan 1. Benign essential hypertension Follow Up In Cardiology amlodipine-valsartan (Exforge) 5-160 mg tablet Follow Up In Cardiology 2. Hyperlipidemia, unspecified hyperlipidemia type 3. Statin intolerance 4. PVD (peripheral vascular disease) (CMS-HCC) 5. Diabetes mellitus of other type without complication, unspecified whether buttermaker helper insulin use (Multi) 6. Former smoker 7. BMI 21.0-21.9, adult Scribe Attestation By signing my name below, IKym LPN, Scribe attest that this documentation has been prepared under the direction and in the presence of Rj Rollins MD. Provider Attestation - Scribe documentation All medical record entries made by the Scribe were at my direction and personally dictated by me. Ihave reviewed the chart and agree that the record accurately reflects my personal performance of the history, physical exam, discussion and plan. documented in this [facility] Work Phone: 1(243) 466-245311-06-2024 Instructions* Patient Instructions* Kym Em LPN - 01/23/2024 11:00 AM EST Please bring all medicines, vitamins, and herbal supplements with you when you come to the office. Prescriptions will not be filled unless you are compliant with your follow up appointments or have a follow up appointment scheduled as per instruction of your physician. Refills should be requested at the time of your visit. Stop Norvasc Stop losartan Start Exforge Follow up [address] [facility] Work Phone: 1(332) 972-336110-25-2024 History of Present illness Narrative* Princess Pizano MD - 01/11/2024 1:10 PM EDT Images from the original note were not included. [facility] [address] [place] [address] Subjective: Patient ID: Khris Mcgowan is a 58 y.o. female. Chief Complaint Chief Complaint Patient presents with Follow-up History of Present Illness: This is a 58-year-old female with a history of a left fem pop bypass done in 2021 for left leg critical limb ischemia. Her story we persisted with lower extremity issues that she underwent stenting and then eventually she sounds like she had thrombosis of the thrombolysis of some sort eventually recurrence and then ended up at [facility] and then eventually to us for evaluation. She underwent a lower extremity bypass she has done really well she is now back to walking with minimal limitation occasional calf cramping on the left. Patient Active Problem List Diagnosis Gangrenous toe (CMS-HCC) Peripheral artery disease (CMS-HCC) Diabetes mellitus ([facility]) Type 1 diabetes mellitus (CMS-HCC) Dyspareunia Gangrene ([facility]) Lung nodules Primary hypertension Urinary retention Peripheral arterial disease ([facility]) Current Outpatient Medications: albuterol (ACCUNEB) 0.63 mg/3 mL nebulizer solution, 3 mL (0.63 mg total)., Disp: , Rfl: AMLODIPINE BESYLATE, BULK, MISC, Apply 10 mg to the mouth or throat daily., Disp: , Rfl: amoxicillin-pot clavulanate (AUGMENTIN) 875-125 mg per tablet, Take 1 tablet by mouth every 12 (twelve) hours., Disp: , Rfl: aspirin 81 mg chewable tablet, CHEW AND SWALLOW 1 TABLET IN THE MORNING, Disp: 30 tablet, Rfl: 0 cholecalciferol, vitamin D3, 2,000 units capsule, Take 1 capsule (2,000 Units total) by mouth in the morning., Disp: , Rfl: clopidogreL (PLAVIX) 75 mg tablet, TAKE 1 TABLET (75 MG TOTAL) BY MOUTH IN THE MORNING, Disp: 90 tablet, Rfl: 1 fenofibrate (FENOGLIDE) 120 MG tablet, Take by mouth daily., Disp: , Rfl: fenofibrate (TRICOR) 145 mg tablet, Take 1 tablet (145 mg total) by mouth., Disp: , Rfl: fluconazole (DIFLUCAN) 150 mg tablet, Take 1 tablet (150 mg total) by mouth once., Disp: , Rfl: gabapentin (NEURONTIN) 100 mg capsule, Take 1 capsule (100 mg total) by mouth in the morning and 1 capsule (100 mg total) at noon and 1 capsule (100 mg total) before bedtime., Disp: 60 capsule, Rfl: 2 ibuprofen (ADVIL,MOTRIN) 600 mg tablet, Take 1 tablet (600 mg total) by mouth every 8 (eight) hoursas needed for pain., Disp: 30 tablet, Rfl: 0 insulin aspart U-100 (NovoLOG) 100 unit/mL (3 mL) insulin pen, Inject under the skin., Disp: , Rfl: LORazepam (ATIVAN) 0.5 mg tablet, Take 1 tablet (0.5 mg total) by mouth nightly., Disp: , Rfl: losartan (COZAAR) 100 mg tablet, Take 1 tablet (100 mg total) by mouth in the morning., Disp: , Rfl: meloxicam (MOBIC) 15 mg tablet, Take 1 tablet (15 mg total) by mouth in the morning., Disp: , Rfl: metoprolol succinate XL (TOPROL XL) 25 mg 24 hr tablet, Take by mouth daily., Disp: , Rfl: metoprolol tartrate (LOPRESSOR) 25 mg tablet, Take 0.5 tablets (12.5 mg total) by mouth., Disp: , Rfl: NIFEdipine XL (PROCARDIA XL) 30 mg 24 hr tablet, Take 1 tablet (30 mg total) by mouth in the morning., Disp: , Rfl: nitroglycerin (NITRO-BID) 2 % ointment, Place 0.5 inches on the skin., Disp: , Rfl: ondansetron ODT (ZOFRAN ODT) 4 mg disintegrating tablet, Dissolve on tongue every 12 (twelve) hours., Disp: , Rfl: PRALUENT PEN 75 mg/mL pen injector, INJECT SUBCUTANEOUSLY ONCE EVERY 2 WEEKS, Disp: , Rfl: sulfamethoxazole-trimethoprim (BACTRIM DS) 800-160 mg per tablet, Take 1 tablet by mouth in the morning and 1 tablet before bedtime., Disp: , Rfl: varenicline (CHANTIX) 0.5 mg tablet, Take 1 tablet (0.5 mg total) by mouth in the morning and 1 tablet (0.5 mg total) before bedtime., Disp: , Rfl: acetaminophen (TYLENOL EXTRA STRENGTH) 500 mg tablet, Take 2 tablets (1,000 mg total) by mouth every 6 (six) hours as needed for pain. (Patient not taking: Reported on 01/11/2024), Disp: 30 tablet, Rfl: 0 buPROPion XL (WELLBUTRIN XL) 150 mg 24 hr tablet, Take 1 tablet (150 mg total) by mouth. (Patient not taking: Reported on 01/11/2024), Disp: , Rfl: cilostazoL (PLETAL) 100 mg tablet, Take 1 tablet (100 mg total) by mouth in the morning and 1 tablet (100 mg total) before bedtime. (Patient not taking: Reported on 01/11/2024), Disp: , Rfl: cyclobenzaprine (FLEXERIL) 10 mg tablet, Take 1 tablet (10 mg total) by mouth in the morning and 1 tablet (10 mg total) at noon and 1 tablet (10 mg total) before bedtime. (Patient not taking: Reported on 01/11/2024), Disp: 30 tablet, Rfl: 0 naloxone (NARCAN) 4 mg/actuation spray,non-aerosol nasal spray, Administer 1 spray (4 mg total) into alternating nostrils as needed for opioid reversal. (Patient not taking: Reported on 01/11/2024), Disp: 1 each, Rfl: 0 naproxen (NAPROSYN) 500 mg tablet, Take 500 mg by mouth in the morning and 500 mg before bedtime. (Patient not taking: Reported on 01/11/2024), Disp: , Rfl: pravastatin (PRAVACHOL) 10 mg tablet, Take 10 mg by mouth in the morning. (Patient not taking: Reported on 01/11/2024), Disp: , Rfl: rosuvastatin (CRESTOR) 40 mg tablet, Take 1 tablet (40 mg total) by mouth in the morning. (Patient not taking: Reported on 01/11/2024), Disp: , Rfl: The following portions of the patient's history were reviewed and updated as appropriate: allergies, current medications, past family history, past medical history, past social history, past surgicalhistory and problem list. Review of Systems: Objective: Vitals BP 142/78 Ht 162.6 cm (5' 4.02 ) Wt 54.9 kg (121 lb) BMI 20.76 kg/m Physical Exam Constitutional: No acute distress, alert and oriented to person, place, and time. HEENT: PERRLA, mucous membranes moist. Chest: Nonlabored breathing Skin: Warm dry well perfused mild dependent rubor. No ulceration or gangrene. Pulses: Pedal pulses 1+ DP and PT on the left 2+ DP and PT on the right Studies Reviewed No results found for: DDIMER Lab Results Component Value Date GLU 163 (H) 08/29/2021 CALCIUM 9.7 08/29/2021 SODIUM 138 08/29/2021 K 4.2 08/29/2021 CO2 26 08/29/2021 BUN 13 08/29/2021 CREATININE 0.95 08/29/2021 Lab Results Component Value Date WBC 4.7 07/20/2021 HGB 8.1 (L) 07/20/2021 HCT 23.9 (L) 07/20/2021 MCV 94 07/20/2021 PLT 364 07/20/2021 CT low dose lung screening (Annual) Result Date: 01/03/2024 Narrative: EXAMINATION: LOW DOSE SCREENING CT OF THE [...] a low dose CT or a routine CT?- >Low Dose CT Smoking Status?->Former Date quit smoking? (must be within 15 years)->11/17/22 Pack Years->36 What reading provider will bedictating this exam?- >CRC FINDINGS: There is a stable 6 mm [...] unremarkable. There is no acute bony abnormality. Impression: Stable 6 mm right middle lobe nodule. Emphysema. Coronary artery disease. Lung-RADS 2 -Benign (v2022) Management: 12 month screening LDCT Assesment: Khris was seen today for follow-up. Diagnoses and all orders for this visit: Peripheral arterial disease (CMS-HCC) Plan Plan: I reviewed with her expectations I plan to see her in 6 months with repeat lower extremity ABIs dania graft scan. Continue with antiplatelet therapy. This note was created with the assistance of a speech recognition program. While intending to generate a timely document that accurately reflects the content of the visit, no guarantee can be provided that every grammatical or spelling mistake has been or will be identified or corrected. Thank you for your understanding. PRINCESS PIZANO MD documented [facility] History of Present illness Narrative* Rj Rollins MD - 06/28/2023 10:10 AM EDT Subjective Khris Mcgowan is a 57 y.o. female Chief Complaint Follow-up HPI Patient is in the office for follow-up for the problems noted below. She currently has no complaints from a cardiac standpoint. Her vascular disease seems to be stable and she follows with vascular surgery in [place]. She could not afford vascular dose Xarelto therefore she is currently on aspirin and Plavix. She has no dyspnea palpitations orthopnea PND or lower extremity edema. She will be signing up for Medicare this coming summer which will make it very difficult for her to obtain Praluent and unfortunately she is intolerant to statin. ASSESSMENT AND PLAN: 1. Hypertension, currently under control medical therapy which will be left unchanged, basic metabolic profile is ordered 2. Hyperlipidemia. Intolerant to statin. Under excellent control on Praluent, she is dropping her insurance Sammy to sign up for Medicare which would make it very difficult for her to obtain this medicine and she is frustrated with that prospect 3. Diabetes, managed by , seems to be getting under control. 4. Severe PAD mostly involving the left lower extremity status post surgical revascularization 2021followed by vascular surgery in [facility] in [place]. Aggressive risk factor modification was emphasized. Patient dropped taken Xarelto due to cost and she is taking aspirin Plavix only. Rj Rollins MD, FACC Review of Systems All other systems reviewed and are negative. Vitals: 06/28/23 1032 BP: 136/84 BP Location: Right arm Patient Position: Sitting Pulse: 82 Weight: 59 kg (130 lb) Height: 1.626 m (5' 4 ) Objective Physical Exam Constitutional: Appearance: Normal appearance. HENT: Nose: Nose normal. Neck: Vascular: No carotid bruit. Cardiovascular: Rate and Rhythm: Normal rate. Pulses: Normal pulses. Heart sounds: Normal heart sounds. Pulmonary: Effort: Pulmonary effort is normal. Abdominal: General: Bowel sounds are normal. Palpations: Abdomen is soft. Musculoskeletal: General: Normal range of motion. Cervical back: Normal range of motion. Right lower leg: No edema. Left lower leg: No edema. Skin: General: Skin is warm and dry. Neurological: General: No focal deficit present. Mental Status: She is alert. Psychiatric: Mood and Affect: Mood normal. Behavior: Behavior normal. Thought Content: Thought content normal. Judgment: Judgment normal. Allergies Latex and Uonojrk-ovd-uya reductase inhibitors Current Medications Current Outpatient Medications: albuterol 90 mcg/actuation inhaler, Inhale 2 puffs every 4 hours if needed for wheezing., Disp: , Rfl: amLODIPine (Norvasc) 10 mg tablet, TAKE 1 TABLET DAILY, Disp: 90 tablet, Rfl: 3 aspirin 81 mg EC tablet, Take 1 tablet (81 mg) by mouth once daily., Disp: , Rfl: cetirizine (ZyrTEC) 10 mg tablet, Take 1 tablet (10 mg) by mouth once daily., Disp: , Rfl: clopidogrel (Plavix) 75 mg tablet, Take 1 tablet (75 mg) by mouth once daily., Disp: , Rfl: dupilumab (DUPIXENT PEN SUBQ), Inject under the skin every 14 (fourteen) days., Disp: , Rfl: ibuprofen 800 mg tablet, Take 1 tablet (800 mg) by mouth see administration instructions., Disp: , Rfl: metoprolol tartrate (Lopressor) 25 mg tablet, Take 1 tablet (25 mg) by mouth once daily., Disp: , Rfl: NovoLOG U-100 Insulin aspart 100 unit/mL injection, , Disp: , Rfl: ondansetron ODT (Zofran-ODT) 4 mg disintegrating tablet, Take 1 tablet (4 mg) by mouth see administration instructions., Disp: , Rfl: Praluent Pen 75 mg/mL pen injector, INJECT SUBCUTANEOUSLY ONCE EVERY 2 WEEKS, Disp: 6 Pen, Rfl: 3 Assessment/Plan 1. Benign essential hypertension Follow Up In Cardiology CBC Basic Metabolic Panel CBC Basic Metabolic Panel 2. Hyperlipidemia, unspecified hyperlipidemia type Lipid Panel Lipid Panel 3. Statin intolerance Lipid Panel Lipid Panel 4. PVD (peripheral vascular disease) ([facility]) Lipid Panel CBC Lipid Panel CBC 5. Intermittent claudication ([facility]) 6. Diabetes mellitus of other type without complication, unspecified whether retirement insulin use ([facility]) 7. Former smoker Scribe Attestation By signing my name below, I, Kym Collins LPN , Javier attest that this documentation has been prepared under the direction and in the presence of Rj Rollins MD. Provider Attestation - Scribe documentation All medical record entries made by the Scribe were at my direction and personally dictated by me. Aydee reviewed the chart and agree that the record accurately reflects my personal performance of the history, physical exam, discussion and plan. documented in this encounterOhio [facility] Work Phone: [phone]) 703-394204-11-2024 Instructions* Patient Instructions* Kym Em LPN - 06/28/2023 10:10 AM EDT Please bring all medicines, vitamins, and herbal supplements with you when you come to the office. Prescriptions will not be filled unless you are compliant with your follow up appointments or have a follow up appointment scheduled as per instruction of your physician. Refills should be requested at the time of your visit. Lab work Same medications Follow up 6 months documented in this encounterOhio [facility] Work Phone: [phone]) 125-648002-06-2024 Evaluation note* Encounter Date Diagnosis Assessment Notes Treatment Notes Treatment Clinical Notes Apr, Acute non-recurrent maxillary si nusitis (ICD-10 - J01.00) Advised patient that rapid COVID/Influenza A/B test was negative today in office. Discussed diagnosis with patient in detail. Will treat today with antibiotic. Reviewed allergies and recent antibiotic use. Advised to take medications as prescribed, reviewed side effects of steroid, take with food and plenty of water, finish entire course. Encouraged supportive care as directed, push fluids and rest, may use Tylenol as needed for fever/discomfort, cool mist humidifier. May use Tessalon Perles as needed for cough. Patient to follow up with PCP in 2-3 days if symptoms do not improve. Immediate eval if SOB, difficulty breathing, chest pain, dizziness, or other concerning symptoms. Patient verbalizes understanding and is agreeable to treatment plan Apr,cute cough (ICD-10 - R05.1) Follow above treatment plan recommendations Apr,ontact with and (suspected) exposure to other viral communicable diseases (ICD-10 - Z20.828) Apr,Eye irritation (ICD-10 - H57.89) Patient reports known exposure to pink eye, states that eyes have been irritating her. Advised thatthere are no physical exam symptoms that would correlate with bacterial conjunctivitis. When denieseye drops, patient called in twice for request. Rx of Ciprofloxacin drops sent to use if needed. Otherwise, follow up with PCP or eye doctor. [employer] Other [id number] Miscellaneous Notes* Telephone Encounter - Sarah Reid - 04/11/2023 1:04 PM EST Patient states Dr wants her to take a baby aspirin a day. She would like this called in as a scriptplease. documented in this encounterJ.W. [facility] Telephone encounter Note* Telephone Encounter - Sarah Reid - 04/11/2023 1:04 PM EST Patient states Dr wants her to take a baby aspirin a day. She would like this called in as a scriptplease. [facility] History of Present illness Narrative* Princess Pizano MD - 04/06/2023 3:10 PM EST Images from the original note were not included. [facility] [address] [place] [address] Subjective: Patient ID: Khris Mcgowan is a 57 y.o. female. Chief Complaint Chief Complaint Patient presents with Follow-up History of Present Illness: This is a 57-year-old female with a history of a left fem-pop bypass and left femoral artery endarterectomy and patch angioplasty. Her vein was harvested from her contralateral leg. She continues to do really well she has no recurrence of rest pain or wounds in the left great toe. She walks withoutany claudication. She is currently on aspirin Plavix and taking by monthly injections for cholesterol control she is intolerant to statins. Patient Active Problem List Diagnosis Gangrenous toe ([facility]) Peripheral artery disease ([facility]) Diabetes mellitus ([facility]) Type 1 diabetes mellitus (CMS-HCC) Dyspareunia Gangrene ([facility]) Lung nodules Primary hypertension Urinary retention Peripheral arterial disease ([facility]) Current Outpatient Medications: acetaminophen (TYLENOL EXTRA STRENGTH) 500 mg tablet, Take 2 tablets (1,000 mg total) by mouth every 6 (six) hours as needed for pain., Disp: 30 tablet, Rfl: 0 albuterol (ACCUNEB) 0.63 mg/3 mL nebulizer solution, 3 mL (0.63 mg total)., Disp: , Rfl: AMLODIPINE BESYLATE, BULK, MISC, Apply 10 mg to the mouth or throat daily., Disp: , Rfl: aspirin 81 mg chewable tablet, Chew 1 tablet (81 mg total) and swallow in the morning., Disp: , Rfl: cholecalciferol, vitamin D3, 2,000 units capsule, Take 1 capsule (2,000 Units total) by mouth in the morning., Disp: , Rfl: clopidogreL (PLAVIX) 75 mg tablet, Take 1 tablet (75 mg total) by mouth in the morning., Disp: 90 tablet, Rfl: 5 fluconazole (DIFLUCAN) 150 mg tablet, Take 1 tablet (150 mg total) by mouth once., Disp: , Rfl: ibuprofen (ADVIL,MOTRIN) 600 mg tablet, Take 1 tablet (600 mg total) by mouth every 8 (eight) hoursas needed for pain., Disp: 30 tablet, Rfl: 0 insulin aspart U-100 (NovoLOG) 100 unit/mL (3 mL) insulin pen, Inject under the skin., Disp: , Rfl: metoprolol succinate XL (TOPROL XL) 25 mg 24 hr tablet, Take by mouth daily., Disp: , Rfl: naloxone (NARCAN) 4 mg/actuation spray,non-aerosol nasal spray, Administer 1 spray (4 mg total) into alternating nostrils as needed for opioid reversal., Disp: 1 each, Rfl: 0 nitroglycerin (NITRO-BID) 2 % ointment, Place 0.5 inches on the skin., Disp: , Rfl: ondansetron ODT (ZOFRAN ODT) 4 mg disintegrating tablet, Dissolve on tongue every 12 (twelve) hours., Disp: , Rfl: PRALUENT PEN 75 mg/mL pen injector, INJECT SUBCUTANEOUSLY ONCE EVERY 2 WEEKS, Disp: , Rfl: amoxicillin-pot clavulanate (AUGMENTIN) 875-125 mg per tablet, Take 1 tablet by mouth every 12 (twelve) hours. (Patient not taking: Reported on 10/28/2021), Disp: , Rfl: buPROPion XL (WELLBUTRIN XL) 150 mg 24 hr tablet, Take 1 tablet (150 mg total) by mouth. (Patient not taking: Reported on 04/06/2023), Disp: , Rfl: cilostazoL (PLETAL) 100 mg tablet, Take 1 tablet by mouth in the morning and 1 tablet before bedtime. (Patient not taking: Reported on 04/06/2023), Disp: , Rfl: cyclobenzaprine (FLEXERIL) 10 mg tablet, Take 1 tablet (10 mg total) by mouth in the morning and 1 tablet (10 mg total) at noon and 1 tablet (10 mg total) before bedtime. (Patient not taking: Reported on 04/06/2023), Disp: 30 tablet, Rfl: 0 fenofibrate (FENOGLIDE) 120 MG tablet, Take by mouth daily. (Patient not taking: Reported on 08/04/2022), Disp: , Rfl: fenofibrate (TRICOR) 145 mg tablet, Take 145 mg by mouth. (Patient not taking: Reported on 08/04/2022), Disp: , Rfl: gabapentin (NEURONTIN) 100 mg capsule, Take 1 capsule (100 mg total) by mouth in the morning and 1 capsule (100 mg total) at noon and 1 capsule (100 mg total) before bedtime. (Patient not taking: Reported on 04/06/2023), Disp: 60 capsule, Rfl: 2 LORazepam (ATIVAN) 0.5 mg tablet, Take 1 tablet (0.5 mg total) by mouth nightly. (Patient not taking: Reported on 04/06/2023), Disp: , Rfl: losartan (COZAAR) 100 mg tablet, Take 100 mg by mouth in the morning. (Patient not taking: Reportedon 10/28/2021), Disp: , Rfl: meloxicam (MOBIC) 15 mg tablet, Take 15 mg by mouth in the morning. (Patient not taking: Reported on 10/28/2021), Disp: , Rfl: metoprolol tartrate (LOPRESSOR) 25 mg tablet, Take 12.5 mg by mouth. (Patient not taking: Reported on 10/28/2021), Disp: , Rfl: naproxen (NAPROSYN) 500 mg tablet, Take 500 mg by mouth in the morning and 500 mg before bedtime. (Patient not taking: Reported on 10/28/2021), Disp: , Rfl: NIFEdipine XL (PROCARDIA XL) 30 mg 24 hr tablet, Take 30 mg by mouth in the morning. (Patient not taking: Reported on 10/28/2021), Disp: , Rfl: pravastatin (PRAVACHOL) 10 mg tablet, Take 10 mg by mouth in the morning. (Patient not taking: Reported on 10/28/2021), Disp: , Rfl: rosuvastatin (CRESTOR) 40 mg tablet, Take 1 tablet (40 mg total) by mouth in the morning. (Patient not taking: Reported on 08/04/2022), Disp: , Rfl: sulfamethoxazole-trimethoprim (BACTRIM DS) 800-160 mg per tablet, Take 1 tablet by mouth in the morning and 1 tablet before bedtime. (Patient not taking: Reported on 10/28/2021), Disp: , Rfl: varenicline (CHANTIX) 0.5 mg tablet, Take 0.5 mg by mouth in the morning and 0.5 mg before bedtime.(Patient not taking: Reported on 10/28/2021), Disp: , Rfl: The following portions of the patient's history were reviewed and updated as appropriate: allergies, current medications, past family history, past medical history, past social history, past surgicalhistory and problem list. Objective: Vitals BP 118/66 Ht 162.6 cm (5' 4.02 ) Wt 58.5 kg (129 lb) BMI 22.13 kg/m Physical Exam Constitutional: No acute distress, alert and oriented to person, place, and time. HEENT: PERRLA, mucous membranes moist. Chest: Nonlabored breathing. Skin: Warm dry well perfused. Mild edema at the ankles bilaterally. No evidence of ulceration or gangrene. Pulses: Pedal pulses are 2+ bilaterally. Studies Reviewed No results found for: DDIMER Lab Results Component Value Date GLU 163 (H) 08/29/2021 CALCIUM 9.7 08/29/2021 SODIUM 138 08/29/2021 K 4.2 08/29/2021 CO2 26 08/29/2021 BUN 13 08/29/2021 CREATININE 0.95 08/29/2021 Lab Results Component Value Date WBC 4.7 07/20/2021 HGB 8.1 (L) 07/20/2021 HCT 23.9 (L) 07/20/2021 MCV 94 07/20/2021 PLT 364 07/20/2021 Vas art doppler lwr bilat mult lev/PVR Result Date: 04/06/2023 Narrative: Previous: Previous lower extremity arterial physiological exam performed: 08/04/2022; Highest GABRIELLE: Right: 1.06; Left: 1.11. Right: Essentially normal PVR waveform contour at all cuff levels. Calf waveform augmentation noted. PT GABRIELLE is 1.03; DP GABRIELLE is 1.04. Multiphasic with diastolic flowreversal common femoral PT and DP CW Doppler waveforms. Left: Essentially normal PVR waveform contour at all cuff levels. Calf waveform augmentation noted. PT GABRIELLE is 1.05; DP GABRIELLE is 0.97. Multiphasicwith diastolic flow reversal common femoral PT and DP CW Doppler waveforms. General: History of a left fem-pop bypass with right leg saphenous vein harvest. Recommendations: Any questions prior to fin alization, please call the reading physician during normal business hours at the phone number beside their name. Assesment: Atherosclerosis of the lower extremity with revascularization with autologous conduit. Plan Plan: I reviewed her imaging her ABIs are normal unchanged. She is doing really well there has no evidence of stenosis at this time we will continue with six-month surveillance in the next visit will be just over 2 years since her bypass and we can then transition to annual surveillance. Recommend continue aspirin statin medication. This note was created with the assistance of a speech recognition program. While intending to generate a timely document that accurately reflects the content of the visit, no guarantee can be provided that every grammatical or spelling mistake has been or will be identified or corrected. Thank you for your understanding. PRINCESS PIZANO MD documented in this encounterOhio [facility]08-03-2023 History of Present illness Narrative* Sai Crawley MD - 10/19/2022 12:00 PM EDT Electroencephalogram Procedure Note Indications: Diagnostic Medications: none Technical Description This study was performed using TE2 electroencephalographic recording equipment. International 10-20 electrode placement was used. The record was obtained with the patient awake. The record is of excellent technical quality for purposes of interpretation. Activation Procedures: hyperventilation, photic stimulation, and sleep deprivation EEG Description Awake: Alpha Activity: The waking state record contains a well-defined bi- occipital alpha rhythm oflow amplitude with a dominant frequency of 9-12 Hz. Reactivity is present. Beta Activity: low amplitude; Location: Frontal and central regions. . Theta Activity: high amplitude; Location: Frontal. Sleep: With drowsiness, there is attenuation of the background alpha activity. As the patient enters into light sleep, vertex waves and symmetrical spindles are noted. K complexes are noted in sleep.Transition to the waking state is unremarkable. Result of Activation Procedures: Hyperventilation: Hyperventilation performed adequalty for three minutes did not activate the recording. Photo Stimulation: Photic stimulation performed intermittently over a stimulus frequency of 1 to 20Hertz did not activate the recording. Summary This is a normal electroencephalogram in waking and sleep with activation procedures. There are no focal lateralizing or epileptiform features documented in this encounterMadison Medical [id number] NoteHNO ID: [id number] Author: Marek Weaver PA-C Service: ? Author Type: Physician Residential Worker Type: Progress Notes Filed: 05/10/2022 3:33 PM Note Text: [facility] NOTE CC: Khris Mcgowan is a 56 year old female who is seen at the request of Siri Johnson DO for evaluation of otalgia. My findings and recommendations will be communicated to the referring provider via the shared electronic medical record. ASSESSMENT: Chronic eczematous otitis externa of both ears (primary encounter diagnosis) Referred otalgia of both ears Tmj dysfunction Environmental and seasonal allergies PLAN: - Prescribed Elocon; counseled patient on medication, dose, route, side effects, and adverse reactions - Trial of Flonase; instructed patient on appropriate use, side effects and need for daily adherence to realize benefits - Aggressive allergy management, avoidance of allergic triggers, daily oral antihistamine, nasal saline rinses - Warm compress, gentle massage, analgesia as needed, soft diet advised, avoid clenching or grinding teeth; make appointment with a dentist who specializes in TMJ for further treatment, oral appliance if indicated - Patient declines hearing test during appointment today - Advised patient on red flag warning signs, symptoms that warrant immediate evaluation in ER - Follow up as clinically indicated Marek Weaver PA-C Comprehensive ENT HPI: 56 year old female presents to clinic for evaluation of otalgia. Patient reports with 2 month history of sharp pain, deep in the left ear radiating down the neck and intermittent muffled hearing with itching of the ears and one episode of bleeding from the left ear. She saw her PCP who noted fluid behind her TM, but no infection. The PCP prescribed amoxicillin at the request of the patient and suggested assessment from ENT for possible tube placement. Patient presents today with persistent otalgia, ear itching and crackling when she pops her ears. She uses Qtips and francisca pins to itch her ears often. She states that she may have seasonal/environmental allergies and associated nasal congestion, but has not had formal allergy testing and does not take anything for this. She also notes some decreased hearing over the past two years stating that she often turns the TV volume up and ask her nephew to repeat himself often. She has a history of ear infections as a child and a TM rupture when 9 years old, but denies history of tube placement. She denies ear pressure, otorrhea, sinus pressure, and PND today. Past medical history: PAST MEDICAL HISTORY Diagnosis Date Diabetes mellitus (HCC) hyperlipidemia Menopause Pituitary adenoma (HCC) Past surgical history: PAST SURGICAL HISTORY Procedure Laterality Date DELIVERY ONLY 1985 , low cervical PAST SURGICAL HISTORY OF 1977 bowel blockages PAST SURGICAL HISTORY OF 2003 for bloating in abdmen TONSILLECTOMY AND ADENOIDECTOMY Tonsil/adenoidectomy TOTAL ABDOMINAL HYSTERECT W/WO RMVL TUBE OVARY 2001 Hysterectomy, COSMO Current medication(s): Current Outpatient Medications Medication Sig albuterol HFA (PROVENTIL HFA) 90 mcg/Actuation INHALATION inhaler Inhale 2 Puffs as instructed every 4 hours as needed (for shortness of breath and wheezing.). insulin aspart(NOVOLOG 100 UNIT/ML SUB-Q) SLIDING SCALE. 2UNITS WITH MEALS IF NEEDED pravastatin sodium(PRAVACHOL 20 MG TAB) Take one(1) tablet daily at bedtime. MOTRIN 800 MG TABLET 1 tab 3-5 times daily mometasone (ELOCON) 0.1 % ointment Apply to affected area once daily. fluticasone (FLONASE ALLERGY RELIEF) 50 mcg/actuation nasal spray Use 1 [place] in each nostril twice daily. cetirizine (ZYRTEC) 10 mg tablet Take 1 tablet by mouth once daily. varenicline (CHANTIX) 0.5 mg tablet Take 0.5 mg by mouth twice daily. (Patient not taking: Reported on 05/10/2022) PREMARIN 1.25 MG ORAL TAB 1 tb qd (Patient not taking: Reported on 05/10/2022) No current facility-administered medications for this visit. Allergies: ALLERGIES Allergen Reactions Latex Rash, Hives, Itching Social history: Social History Tobacco Use Smoking status: Former Packs/day: 0.75 Years: 15.00 Pack years: 11.25 Types: Cigarettes Substance Use Topics Alcohol use: Yes Comment: occ-maybe one beer a month Drug use: No Family history: FAMILY HISTORY Problem Relation Age of Onset Alcohol/Drug Brother Alcohol/Drug Sister Asthma Father Diabetes Sister Coronary Artery Disease Sister Coronary Artery Disease Maternal Grandfather Diabetes Maternal Grandfather Hypertension Mother Ischemic Heart Disease Sister Ischemic Heart Disease Maternal Grandfather of heart attack Lipids Mother Lipids Sister Psychiatry Brother Bipolar/schitz Thyroid Sister Graves Disease Thyroid Sister nodules/thyroidectomy Thyroid Brother There are no exam notes on file (more content not included)...[facility]02-22-2023 History of Present illness Narrative* Marek Weavre PA-C - 05/10/2022 2:25 PM EST Images from the original note were not included. [facility] NOTE CC: Khris Mcgowan is a 56 year old female who is seen at the request of Siri Johnson DO for evaluation of otalgia. My findings and recommendations will be communicated to the referring provider via the shared electronic medical record. ASSESSMENT: Chronic eczematous otitis externa of both ears (primary encounter diagnosis) Referred otalgia of both ears Tmj dysfunction Environmental and seasonal allergies PLAN: - Prescribed Elocon; counseled patient on medication, dose, route, side effects, and adverse reactions - Trial of Flonase; instructed patient on appropriate use, side effects and need for daily adherence to realize benefits - Aggressive allergy management, avoidance of allergic triggers, daily oral antihistamine, nasal saline rinses - Warm compress, gentle massage, analgesia as needed, soft diet advised, avoid clenching or grinding teeth; make appointment with a dentist who specializes in TMJ for further treatment, oral appliance if indicated - Patient declines hearing test during appointment today - Advised patient on red flag warning signs, symptoms that warrant immediate evaluation in ER - Follow up as clinically indicated Marek Weaver PA-C Comprehensive E[facility] HPI: 56 year old female presents to clinic for evaluation of otalgia. Patient reports with 2 month history of sharp pain, deep in the left ear radiating down the neck and intermittent muffled hearing with itching of the ears and one episode of bleeding from the left ear. She saw her PCP who noted fluid behind her TM, but no infection. The PCP prescribed amoxicillin at the request of the patient and suggested assessment from ENT for possible tube placement. Patient presents today with persistent otalgia, ear itching and crackling when she pops her ears. She uses Qtips and francisca pins to itch her ears often. She states that she may have seasonal/environmental allergies and associated nasal congestion, but has not had formal allergy testing and does not take anything for this. She also notes some decreased hearing over the past two years stating that she often turns the TV volume up and ask her nephew to repeat himself often. She has a history of ear infections as a child and a TM rupture when 9 years old, but denies history of tube placement. She denies ear pressure, otorrhea, sinus pressure, and PND today. Past medical history: PAST MEDICAL HISTORY Diagnosis Date Diabetes mellitus (HCC) hyperlipidemia Menopause Pituitary adenoma (HCC) Past surgical history: PAST SURGICAL HISTORY Procedure Laterality Date DELIVERY ONLY 1985 , low cervical PAST SURGICAL HISTORY OF 1977 bowel blockages PAST SURGICAL HISTORY OF 2003 for bloating in abdmen TONSILLECTOMY & ADENOIDECTOMY <AGE 13 Tonsil/adenoidectomy TOTAL ABDOMINAL HYSTERECT W/WO RMVL TUBE OVARY 2000 Hysterectomy, COSMO Current medication(s): Current Outpatient Medications Medication Sig albuterol HFA (PROVENTIL HFA) 90 mcg/Actuation INHALATION inhaler Inhale 2 Puffs as instructed every 4 hours as needed (for shortness of breath and wheezing.). insulin aspart(NOVOLOG 100 UNIT/ML SUB-Q) SLIDING SCALE. 2UNITS WITH MEALS IF NEEDED pravastatin sodium(PRAVACHOL 20 MG TAB) Take one(1) tablet daily at bedtime. MOTRIN 800 MG TABLET 1 tab 3-5 times daily mometasone (ELOCON) 0.1 % ointment Apply to affected area once daily. fluticasone (FLONASE ALLERGY RELIEF) 50 mcg/actuation nasal spray Use 1 [place] in each nostril twicedaily. cetirizine (ZYRTEC) 10 mg tablet Take 1 tablet by mouth once daily. varenicline (CHANTIX) 0.5 mg tablet Take 0.5 mg by mouth twice daily. (Patient not taking: Reportedon 05/10/2022) PREMARIN 1.25 MG ORAL TAB 1 tb qd (Patient not taking: Reported on 05/10/2022) No current facility-administered medications for this visit. Allergies: ALLERGIES Allergen Reactions Latex Rash, Hives, Itching Social history: Social History Tobacco Use Smoking status: Former Packs/day: 0.75 Years: 15.00 Pack years: 11.25 Types: Cigarettes Substance Use Topics Alcohol use: Yes Comment: occ-maybe one beer a month Drug use: No Family history: FAMILY HISTORY Problem Relation Age of Onset Alcohol/Drug Brother Alcohol/Drug Sister Asthma Father Diabetes Sister Coronary Artery Disease Sister Coronary Artery Disease Maternal Grandfather Diabetes Maternal Grandfather Hypertension Mother Ischemic Heart Disease Sister Ischemic Heart Disease Maternal Grandfather of heart attack Lipids Mother Lipids Sister Psychiatry Brother Bipolar/schitz Thyroid Sister Graves Disease Thyroid Sister nodules/thyroidectomy Thyroid Brother There are no exam notes on file for this visit. ROS: CONSTITUTIONAL: No fevers, chills, nightsweats, unintended weight loss HEAD: + headaches, - head injury EYES: - glasses/contact lens, - changes in vision, - diplopia, - blurry vision, - floaters EARS: - hearing loss, + change in hearing, - tinnitus, + otalgia, - ear pressure, - ear congestion,- otorrhea, + itching, - autophony, + ear infections, - PE tubes NOSE & SINUSES: + nasal congestion, + rhinorrhea, - PND, - epistaxis, - sense of smell, - history of nasal polyps, - sinus trouble, - sinus pressure, - sinus pain MOUTH & THROAT: - soreness, - dryness, - ulcers, - sore throat, - hoarseness, - change in voice, - teeth (caries, dentures, extractions, abscesses) NECK: - neck lumps, - goiter, + neck pain, - swollen lymph nodes or glands PULM: No dyspnea, unexplained cough CV: No chest pain, shortness of breath, leg swelling, or palpitations PSYCH: No concerns regarding depression, anxiety or panic PHYSICAL EXAM: GENERAL: 56 year old female is well developed, well nourished, without obvious deformities, in no acute distress COMMUNICATION: The patient speaks with a normal, clear voice without hoarseness. No stridor or stertor. Hearing is grossly normal OVERALL FACIAL APPEARANCE: No obvious scars, lesions, or masses EYES: Extraocular muscles are intact, no diplopia on primary gaze EARS: Externally normal in appearance, without scars, lesions, masses, or tenderness. Right EAC: patent; dry skin, flaking notable along floor of EAC R TM: visualized and intact; pearly duval and translucent, landmarks undistorted; no fluid behind TM R Pneumotoscopy: TM is mobile Left EAC: patent; dry scabbing, flaking notable along floor of EAC L TM: visualized and intact; pearly duval and translucent, landmarks undistorted; no fluid behind TM L Pneumotoscopy: TM is mobile NOSE: Externally normal in appearance, without scars, lesions, or masses. There is no tenderness with percussion over the paranasal sinuses. Nasal passageways narrow, but patent. The mucosa is pink and moist without lesions, visible turbinates grossly hypertrophied on anterior rhinoscopy. Septum isdeviated. ORAL CAVITY AND OROPHARYNX: Teeth are in fair repair. The lips, gums, oral mucosa, hard and soft palates, tongue, tonsil area, and posterior pharyngeal mucosa are without lesions. Uvula midline. No pharyngeal swelling, oropharyngeal exudate, posterior oropharyngeal erythema, or uvula swelling. Gag reflex intact. NECK: The neck appears symmetric without scars and on palpation is without masses or lymphadenopathy. Trachea is midline and mobile. Full range of motion without symptoms. LYMPH NODES: No masses or tenderness. No submental, submandibular, tonsillar, preauricular, posterior auricular, occipital, or parotid adenopathy MSK: TMJ joint palpated and revealed no crepitation, but significant TTP bilaterally; TTP bilateralSCM, masseters, temporalis, medial pterygoids NEURO: Patient is Alert and Oriented to person, place, time, and situation. Cranial nerves II-XII grossly intact RESPIRATORY: Breathing comfortably, no evidence accessory muscle use, no intercostal retractions CV: Strong carotid artery pulse with no bruit RADS: None LABS: Relevant labs were reviewed and discussed with patient. OUTSIDE RECORDS: None PROCEDURE: None Marek Weaver PA-C Comprehensive E[facility] Medical Decision Making: Problems: Minimal: Self-limited or minor problem Low: Stable chronic illness Risk: Low: Low risk from testing/treatment Moderate: Drug management Medical Decision Making Level: 3 - Low documented in [facility]St[facility]* Encounter Date Diagnosis Assessment Notes Treatment Notes Treatment Clinical Notes Aug, Dysuria (ICD-10 - R30.0) Aug,Urinary tract infection, site not specified (ICD-10 - N39.0)Drink plenty fluids, get plenty of rest. Take the Macrobid and Pyridium as prescribed until gone. Use the Flonase inhaler and the mupirocin ointment as prescribed until your symptoms improve. Follow-up with your family physician if no improvement in 4 to 5 days. Aug,cute sinusitis, recurrence not specified, unspecified location (ICD-10 - J01.90) Aug,Hematuria, unspecified (ICD-10 - R31.9) [employer] Other 04-18-2022 Hospital course Narrative* Kaitlynn Holbrook MD - 07/04/2021 2:43 PM EDT Images from the original note were not included. [facility] Office: [phone] Agusto Price DO, Himanshu Maza DO, Fortino Brennan DO, Raplh Magdaleno DO, Kaitlynn Holbrook MD, Phuong Head MD, Rachid Rivas MD, Laury Villalobos MD, Shalonda Torres MD, Ishan Yap MD, Afia Kim MD, Bola Cox DO, Brandon Cuellar DO, Rekha Subramanian MD, Selam Venegas DO, MD Stephanie, Etienne Anne MD, Estuardo Gusman MD, Marce Price DO, Rufino Ambrosio MD, Vicente Michaels MD, Sandy Fox CNP, Natali Montgomery CNP, Kevin Candelaria CNP, Steff Hill CNP,Aleida Hugo CNP, Jake Knutson CNP, Simeon Adhikari PA-C, Licha Simms, DNP, Denice Donaldson RESERVATION SALES AGENT, Agustina Ragland RESERVATION SALES AGENT, Amy Cruz RESERVATION SALES AGENT, Georgia Talavera, MAIL ORDER BILLER, Ashley Ramey, HOLLY, Zohra Montalvo CNP, KELI Black, Josiane Otero, RESERVATION SALES AGENT [facility]-PATIENT SERVICE [facility] Discharge Summary Patient ID: Khris Mcgowan : 1965 ACCOUNT: [id number] Patient's PCP: SIRI JOHNSON Admit Date: 06/27/2021 Discharge Date: 07/04/2021 Length of Stay: 7 Code Status: Full Code Admitting Physician: Kaitlynn Holbrook MD Discharge Physician: Kaitlynn Holbrook MD Active Discharge Diagnoses: Hospital Problem Lists: Active Problems: Peripheral arterial disease (HCC) Gangrene (HCC) Primary hypertension Type 1 diabetes mellitus (HCC) Resolved Problems: * No resolved hospital problems. * Admission Condition: poor Discharged Condition: stable Hospital Stay: Admitting history: Khris Mcgowan is a 55 y.o. Non- / non female who presents with No chief complaint on file. and is admitted to the hospital for the management of <principal problem not specified>. Khris Mcgowan is a 55 year old female transferred from vascular surgeon office for direct admissionfor pain and gangrene to the left great toe. She states that she has been seen over the past several months on several occasions for pain and vascular disease to the left leg. She was admitted initially at [facility] and had a left femoral stent placed in May. Following discharge she was found to have clotted the stent and was re-admitted. She continued to have pain after discharge and had her sister drive her to [facility] ED where she had a vascular consult and established care with vascular MD. She went to office appointment today where she states they were unable to find pulses to her left foot. She was transferred for vascular intervention. She states that she has been unable to walk on the foot and pain has been unbearable requiring narcotic pain relief. In addition she has DM1and HTN. She states she is compliant with home medications and has an insulin pump for DM management Hospital Course: Patient had LLE angiogram, pharmacomechanical thrombectomy, angioplasty and stenting 06/28/2021 Patient was discharged yesterday however she was kept with the nurse as she wanted vascular to evaluate the patient again, apparently vascular saw the patient today morning. Patient still complains of moderate to severe pain in the left great toe, there is slightly increased redness on the toe currently on oral nifedipine and Nitropaste on left great toe, Blood sugars 178, A1c 7.4 states has DM 1 Her insulin pump is working now Plan: 1. Continue Eliquis with starter pack 2. Oral pain medicines managed by vascular for better pain control, will discharge on limited prescription of OxyContin 20 mg twice daily and Roxicodone as needed 3. She needs to follow-up with pain clinic/PCP as outpatient for further pain medicines 4. Manage DM: Using her own insulin pump 5. Manage HTN. Continue home meds. 6. DVT prophylaxis: Already on oral anticoagulation 7. GI prophylaxis 8. Start on oral Ceftin due to increased redness on left great toe suggestive of possible getting infection. 9. Discharge home, new discharge order has been placed again Significant therapeutic interventions: See above notes Significant Diagnostic Studies: Labs / Micro: CBC: Lab Results Component Value Date WBC 5.2 07/02/2021 RBC 3.22 07/02/2021 HGB 10.3 07/02/2021 HCT 31.0 07/02/2021 MCV 96.3 07/02/2021 MCH 32.0 07/02/2021 MCHC 33.2 07/02/2021 RDW 13.1 07/02/2021 PLT 250 07/02/2021 BMP: Lab Results Component Value Date GLUCOSE 358 07/02/2021 NA 131 07/02/2021 K 4.4 07/02/2021 CL 94 07/02/2021 CO2 27 07/02/2021 ANIONGAP 10 07/02/2021 BUN 9 07/02/2021 CREATININE 0.96 07/02/2021 CALCIUM 9.3 07/02/2021 LABGLOM >60 07/02/2021 GFRAA >60 07/02/2021 GFR 07/02/2021 HFP: No results found for: ALB, PROT CMP: Lab Results Component Value Date GLUCOSE 358 07/02/2021 NA 131 07/02/2021 K 4.4 07/02/2021 CL 94 07/02/2021 CO2 27 07/02/2021 BUN 9 07/02/2021 CREATININE 0.96 07/02/2021 ANIONGAP 10 07/02/2021 LABALBU 3.8 07/02/2021 LABGLOM >60 07/02/2021 GFRAA >60 07/02/2021 GFR 07/02/2021 CALCIUM 9.3 07/02/2021 PT/INR: Lab Results Component Value Date PROTIME 12.9 06/27/2021 INR 1.2 06/27/2021 PTT: Lab Results Component Value Date APTT 50.9 06/30/2021 FLP: No results found for: CHOL, TRIG, HDL U/A: No results found for: COLORU, TURBIDITY, SPECGRAV, HGBUR, PHUR, PROTEINU, GLUCOSEU, KETUA, BILIRUBINUR, UROBILINOGEN, NITRU, LEUKOCYTESUR TSH: No results found for: TSH Radiology: XR CHEST (SINGLE VIEW FRONTAL) Result Date: 06/27/2021 No evidence of acute cardiopulmonary disease. XR FOOT LEFT (MIN 3 VIEWS) Result Date: 06/29/2021 Unremarkable left foot. CTA ABDOMINAL AORTA W BILAT RUNOFF W CONTRAST Result Date: 06/27/2021 1. Occlusion of the distal left SFA at the level of the stent. The popliteal artery is reconstituted and patent 3 vessel runoff is demonstrated. 2. Patent right lower extremity runoff. Scattered atheromatous plaque as above. 3. No aneurysm, dissection or acute aortic abnormality. 4. Diverticulosis. Consultations: Consults: Final Specialist Recommendations/Findings: IP CONSULT TO VASCULAR SURGERY IP CONSULT TO PODIATRY The patient was seen and examined on day of discharge and this discharge summary is in conjunction with any daily progress note from day of discharge. Discharge plan: Disposition: Home Physician Follow Up: Priscila Loyola DPM [address] [place] [address], [address] [id number] Schedule an appointment as soon as possible for a visit in 1 week For wound re-check Denise Chisholm MD [address] [facility] [address] Schedule an appointment as soon as possible for a visit in 2 weeks For follow up Siri Ocampo [address] [address] Schedule an appointment as soon as possible for a visit For follow up Requiring Further Evaluation/Follow Up POST HOSPITALIZATION/Incidental Findings: Follow-up with your drapery estimator for managing insulin pump and better diabetes control Diet: cardiac diet and diabetic diet Activity: As tolerated Instructions to Patient: Foot care with podiatry and vascular as scheduled Discharge Medications: Medication List START taking these medications * apixaban 5 MG Tabs tablet Commonly known as: ELIQUIS Take 2 tablets by mouth 2 times daily for 10 doses * apixaban 5 MG Tabs tablet Commonly known as: ELIQUIS Take 1 tablet by mouth 2 times daily Start taking on: July 08, 2021 aspirin 81 MG chewable tablet Take 1 tablet by mouth daily cefUROXime 250 MG tablet Commonly known as: CEFTIN Take 1 tablet by mouth every 12 hours for 7 days cilostazol 100 MG tablet Commonly known as: PLETAL Take 1 tablet by mouth 2 times daily gabapentin 600 MG tablet Commonly known as: NEURONTIN Take 1 tablet by mouth every 8 hours for 21 doses. methocarbamol 750 MG tablet Commonly known as: ROBAXIN Take 1 tablet by mouth every 6 hours for 10 days NIFEdipine 30 MG extended release tablet Commonly known as: PROCARDIA XL Take 1 tablet by mouth daily nitroglycerin 2 % ointment Commonly known as: NITRO-BID Place 0.5 inches onto the skin every 6 hours * oxyCODONE 5 MG immediate release tablet Commonly known as: ROXICODONE Take 1 tablet by mouth every 4 hours as needed for Pain for up to 10 doses. * oxyCODONE 20 MG extended release tablet Commonly known as: OXYCONTIN Take 1 tablet by mouth every 12 hours for 6 doses. * This list has 4 medication(s) that are the same as other medications prescribed for you. Read thedirections carefully, and ask your doctor or other care provider to review them with you. CONTINUE taking these medications acetaminophen 325 MG tablet Commonly known as: Tylenol Take 1 tablet by mouth every 6 hours as needed for Pain albuterol 0.63 MG/3ML nebulizer solution Commonly known as: ACCUNEB buPROPion 150 MG extended release tablet Commonly known as: WELLBUTRIN XL fenofibrate 145 MG tablet Commonly known as: TRICOR Insulin Pump Accessories Misc metoprolol tartrate 25 MG tablet Commonly known as: LOPRESSOR Vitamin D3 50 MCG (1999 [place]) Caps STOP taking these medications amLODIPine 10 MG tablet Commonly known as: NORVASC ibuprofen 400 MG tablet Commonly known as: IBU Where to Get Your Medications These medications were sent to [facility] [place], [place] - [address] [facility] - P [phone] - F [phone] [place] [id number] apixaban 5 MG Tabs tablet apixaban 5 MG Tabs tablet aspirin 81 MG chewable tablet cefUROXime 250 MG tablet cilostazol 100 MG tablet gabapentin 600 MG tablet methocarbamol 750 MG tablet NIFEdipine 30 MG extended release tablet nitroglycerin 2 % ointment oxyCODONE 20 MG extended release tablet oxyCODONE 5 MG immediate release tablet Discharge Procedure Orders External Referral To Pain Clinic Referral Priority: Routine Referral Type: Eval and Treat Referral Reason: Specialty Services Required Requested Specialty: Pain Management Number of Visits Requested: 1 Time Spent on discharge is 31 mins in patient examination, evaluation, counseling as well as medication reconciliation, prescriptions for required medications, discharge plan and follow up. Electronically signed by Kaitlynn Holbrook MD 07/04/2021 2:[address] SIRI JOHNSON for the opportunity to be involved in this patient's care. documented in this encounterWilson HealthAVI Web Solutions Pvt. Ltd. Phone: [phone] History of Present illness Narrative* Maribell Meredith OT - 07/04/2021 2:17 PM EDT Images from the original note were not included. Occupational Therapy [facility] Occupational Therapy Not Seen Note DATE: 07/04/2021 NAME: Khris Mcgowan : 1965 Patient not seen this date for Occupational Therapy due to: Patient Declined: Pt politely declined. OT will re-attempt at later date as appropriate. * Kassy Liang - 07/04/2021 2:13 PM EDT CLINICAL PHARMACY NOTE: MEDS TO BEDS Total # of Prescriptions Filled: 10 The following medications were delivered to the patient: Nitro-bid ointment Aspirin 81 mg Oxycodone 5 mg cilostazol 50 mg Nifedipine ER 30mg Cefuroxime 250 mg Eliquis 5mg Methocarbamol 750mg Gabapentin 600mg Oxycodone 20mg Additional Documentation: delivered medications to patient in room 540 @ 1351. No copay, 1 visitor in room * Megha Kim PT - 07/04/2021 9:45 AM EDT Images from the original note were not included. Physical Therapy Physical Therapy Cancel Note DATE: 07/04/2021 NAME: Khris Mcgowan : 1965 Patient not seen this date for Physical Therapy due to: Patient Declined: pt declined x 2, requesting to eat breakfast then reporting too much pain for therapy evaluation. RN notified and aware. PT will check back 07/05/21. * Kaitlynn Holbrook MD - 07/04/2021 7:59 AM EDT Images from the original note were not included. [facility] Office: [phone] Agusto Price DO, Himanshu Maza DO, Fortino Brennan DO, Ralph Magdaleno DO, Kaitlynn Holbrook MD, Phuong Head MD, Rachid Rivas MD, Laury Villalobos MD, Shalonda Torres MD, Ishan Yap MD, Afia Kim MD, Bola Cox DO, Brandon Cuellar DO, Rekha Subramanian MD, Selam Venegas DO, MD Stephanie, Etienne Anne MD, Estuardo Gusman MD, Marce Price DO, Rufino Ambrosio MD, Vicente Michaels MD, Sandy Fox CNP, Natali Montgomery RESERVATION SALES AGENT, Kevin Candelaria, RESERVATION SALES AGENT, Steff Hill, RESERVATION SALES AGENT,Aleida Hugo, RESERVATION SALES AGENT, Jake Knutson, RESERVATION SALES AGENT, Simeon Adhikari PA-C, Licha Simms, DNP, Denice Donaldson, RESERVATION SALES AGENT, Agustina Ragland, RESERVATION SALES AGENT, Amy Cruz, RESERVATION SALES AGENT, Georgia Talavera, MAIL ORDER BILLER, Ashley Ramey, DNP, Zohra Montalvo, RESERVATION SALES AGENT, Wayne, RESERVATION SALES AGENT, Josiane Otero, RESERVATION SALES AGENT [facility]-PATIENT SERVICE [facility] Progress Note 07/04/2021 7:59 AM Name: Khris Mcgowan Acct: [id number] Room: 0540/0540-01 Day: 7 Admit Date: 06/27/2021 2:59 PM PCP: SIRI JOHNSON Code Status: Full Code Subjective: C/C: Pain left great toe Interval History Status: Patient had LLE angiogram, pharmacomechanical thrombectomy, angioplasty and stenting 06/28/2021 Patient was discharged yesterday however she was kept with the nurse as she wanted vascular to evaluate the patient again, apparently vascular saw the patient today morning. Patient still complains of moderate to severe pain in the left great toe, there is slightly increased redness on the toe currently on oral nifedipine and Nitropaste on left great toe, Blood sugars 178, A1c 7.4 states has DM 1 Her insulin pump is working now Brief History: Khris Mcgowan is a 55 y.o. Non- / non female who presents with No chief complaint on file. and is admitted to the hospital for the management of <principal problem not specified>. Khris Mcgowan is a 55 year old female transferred from vascular surgeon office for direct admissionfor pain and gangrene to the left great toe. She states that she has been seen over the past several months on several occasions for pain and vascular disease to the left leg. She was admitted initially at [facility] and had a left femoral stent placed in May. Following discharge she was found to have clotted the stent and was re-admitted. She continued to have pain after discharge and had her sister drive her to [facility] ED where she had a vascular consult and established care with vascular MD. She went to office appointment today where she states they were unable to find pulses to her left foot. She was transferred for vascular intervention. She states that she has been unable to walk on the foot and pain has been unbearable requiring narcotic pain relief. In addition she has DM1and HTN. She states she is compliant with home medications and has an insulin pump for DM management. Review of Systems: Constitutional: negative for chills, fevers, sweats Respiratory: negative for cough, dyspnea on exertion, shortness of breath, wheezing Cardiovascular: negative for chest pain, chest pressure/discomfort, lower extremity edema, palpitations Gastrointestinal: negative for abdominal pain, constipation, diarrhea, nausea, vomiting Neurological: negative for dizziness, headache + Pain and small area of gangrene left great toe Medications: Allergies: Allergies Allergen Reactions Latex Rash Demerol Hcl [Meperidine] Nausea And Vomiting Current Meds: Scheduled Meds: methocarbamol 750 mg Oral Q6H insulin lispro 0-18 Units SubCUTAneous TID WC insulin lispro 0-9 Units SubCUTAneous Nightly apixaban 10 mg Oral BID Followed by [START ON 07/07/2021] apixaban 5 mg Oral BID sodium chloride flush 5-40 mL IntraVENous 2 times per day NIFEdipine 30 mg Oral Daily nitroglycerin 0.5 inch Topical 4 times per day cilostazol 100 mg Oral BID aspirin 81 mg Oral Daily gabapentin 300 mg Oral 3 times per day buPROPion 150 mg Oral QAM metoprolol tartrate 12.5 mg Oral BID sodium chloride flush 5-40 mL IntraVENous 2 times per day Continuous Infusions: dextrose sodium chloride sodium chloride PRN Meds: HYDROmorphone, glucose, dextrose, glucagon (rDNA), dextrose, sodium chloride flush, sodium chloride, oxyCODONE, albuterol, sodium chloride flush, sodium chloride, ondansetron OR ondansetron, acetaminophen OR acetaminophen, polyethylene glycol Data: Past Medical History: has a past medical history of Former smoker, Gangrene of toe (HCC), HTN (hypertension), PVD (peripheral vascular disease) (HCC), and Type 1 diabetes mellitus (HCC). Social History: reports that she quit smoking about 3 months ago. She quit after 25.00 years of use. She has never used smokeless tobacco. She reports current alcohol use. She reports that she does not use drugs. Family History: Family History Problem Relation Age of Onset Other Mother Other Father Diabetes Sister Vitals: BP 122/78 Pulse 94 Temp 98.1 F (36.7 C) (Oral) Resp 16 Ht 5' 4 (1.626 m) Wt 116 lb 13.5 oz (53 kg) SpO2 94% BMI 20.06 kg/m Temp (24hrs), Av.2 F (36.8 C), Min:98 F (36.7 C), Max:98.3 F (36.8 C) Recent Labs 07/02/216 07/03/21 0704 07/03/21 1643 07/03/21 1926 POCGLU 175* 178* 272* 281* I/O (24Hr): Intake/Output Summary (Last 24 hours) at 07/04/2021 0759 Last data filed at 07/03/20212017 Gross per 24 hour Intake 770 ml Output Net 770 ml Labs: Hematology: Recent Labs 07/02/21442 WBC 5.2 RBC 3.22* HGB 10.3* HCT 31.0* MCV 96.3 MCH 32.0 MCHC 33.2 RDW 13.1 PLT 250 MPV 10.5 Chemistry: Recent Labs 07/02/21442 NA 131* K 4.4 CL 94* CO2 27 GLUCOSE 358* BUN 9 CREATININE 0.96* MG 1.8 ANIONGAP 10 LABGLOM >60 GFRAA >60 CALCIUM 9.3 PHOS 4.2 Recent Labs 07/02/213 07/02/21 0811 07/02/21232507/03/21 0704 07/03/21 1643 07/03/211925 LABALBU 3.8 -- -- -- -- -- POCGLU 324* 221* 175* 178* 272* 281* ABG:No results found for: POCPH, PHART, PH, POCPCO2, YTV7KZY, PCO2, POCPO2, PO2ART, PO2, POCHCO3, CSL6HVE, HCO3, NBEA, PBEA, BEART, BE, THGBART, THB, HOZ5SSD, GNRC9ZRB, W6AXFCXA, O2SAT, FIO2 No results found for: SPECIAL No results found for: CULTURE Radiology: XR CHEST (SINGLE VIEW FRONTAL) Result Date: 06/27/2021 No evidence of acute cardiopulmonary disease. CTA ABDOMINAL AORTA W BILAT RUNOFF W CONTRAST Result Date: 06/27/2021 1. Occlusion of the distal left SFA at the level of the stent. The popliteal artery is reconstituted and patent 3 vessel runoff is demonstrated. 2. Patent right lower extremity runoff. Scattered atheromatous plaque as above. 3. No aneurysm, dissection or acute aortic abnormality. 4. Diverticulosis. Physical Examination: General appearance: alert, cooperative and minimal distress due to pain left great toe Mental Status: oriented to person, place and time and normal affect Lungs: clear to auscultation bilaterally, normal effort Heart: regular rate and rhythm, no murmur Abdomen: soft, nontender, nondistended, normal bowel sounds, no masses, hepatomegaly, splenomegaly Extremities: + Small area of gangrene and redness around left great toe skin: no gross lesions, rashes, induration Assessment: Hospital Problems Last Modified POA Peripheral arterial disease (HCC) 06/27/2021 Yes Gangrene (HCC) 06/27/2021 Yes Primary hypertension 06/27/2021 Yes Type 1 diabetes mellitus (HCC) 06/27/2021 Yes S/p LLE angiogram, pharmacomechanical thrombectomy, angioplasty and stenting. POD # 6 Plan: 1. Continue Eliquis with starter pack 2. Oral pain medicines managed by vascular for better pain control, will discharge on limited prescription of OxyContin 20 mg twice daily and Roxicodone as needed 3. She needs to follow-up with pain clinic/PCP as outpatient for further pain medicines 4. Manage DM: Using her own insulin pump 5. Manage HTN. Continue home meds. 6. DVT prophylaxis: Already on oral anticoagulation 7. GI prophylaxis 8. Start on oral Ceftin due to increased redness on left great toe suggestive of possible getting infection. 9. Discharge home, new discharge order has been placed again Kaitlynn Holbrook MD 07/04/2021 7:59 AM * Kaitlynn Holbrook MD - 07/03/2021 11:03 AM EDT Images from the original note were not included. [facility] Office: [phone] Agusto Price DO, Himanshu Maza DO, Fortino Brennan DO, Ralph Magdaleno DO, Kaitlynn Holbrook MD, Phuong Head MD, Rachid Rivas MD, Laury Villalobos MD, Shalonda Torres MD, Ishan Yap MD, Afia Kim MD, Bola Cox DO, Brandon Cuellar DO, Rekha Subramanian MD, Selam Venegas DO, MD Stephanie, Etienne Anne MD, Estuardo Gusman MD, Marce Price DO, Rufino Ambrosio MD, Vicente Michaels MD, Sandy Fox CNP, Natali Montgomery CNP, Kevin Candelaria, RESERVATION SALES AGENT, Steff Hill, RESERVATION SALES AGENT,Aleida Hugo, RESERVATION SALES AGENT, Jake Knutson, RESERVATION SALES AGENT, Simeon Adhikari PA-C, Licha Simms, HOLLY, Denice Donaldsno, RESERVATION SALES AGENT, Agustina Ragland, RESERVATION SALES AGENT, Amy Cruz, RESERVATION SALES AGENT, Georgia Talavera, MAIL ORDER BILLER, Ashley Ramey, HOLLY, Zohra Montalvo, KELI, Wayne, RESERVATION SALES AGENT, Josiane Otero, KELI 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 Non- / non female who presents with No chief complaint on file. and is admitted to the hospital for the management of <principal problem not specified>. Khris Mcgowan is a 55 year old female transferred from vascular surgeon office for direct admissionfor pain and gangrene to the left great toe. She states that she has been seen over the past several months on several occasions for pain and vascular disease to the left leg. She was admitted initially at [facility] and had a left femoral stent placed in May. Following discharge she was found to have clotted the stent and was re-admitted. She continued to have pain after discharge and had her sister drive her to [facility] ED where she had a vascular consult and established care with vascular MD. She went to office appointment today where she states they were unable to find pulses to her left foot. She was transferred for vascular intervention. She states that she has been unable to walk on the foot and pain has been unbearable requiring narcotic pain relief. In addition she has DM1and HTN. She states she is compliant with home medications and has an insulin pump for DM management. Review of Systems: Constitutional: negative for chills, fevers, sweats Respiratory: negative for cough, dyspnea on exertion, shortness of breath, wheezing Cardiovascular: negative for chest pain, chest pressure/discomfort, lower extremity edema, palpitations Gastrointestinal: negative for abdominal pain, constipation, diarrhea, nausea, vomiting Neurological: negative for dizziness, headache + Pain and small area of gangrene left great toe improving Medications: Allergies: Allergies Allergen Reactions Latex Rash Demerol Hcl [Meperidine] Nausea And Vomiting Current Meds: Scheduled Meds: insulin lispro 0-18 Units SubCUTAneous TID WC insulin lispro 0-9 Units SubCUTAneous Nightly apixaban 10 mg Oral BID Followed by [START ON 07/07/2021] apixaban 5 mg Oral BID sodium chloride flush 5-40 mL IntraVENous 2 times per day NIFEdipine 30 mg Oral Daily nitroglycerin 0.5 inch Topical 4 times per day cilostazol 100 mg Oral BID aspirin 81 mg Oral Daily gabapentin 300 mg Oral 3 times per day buPROPion 150 mg Oral QAM metoprolol tartrate 12.5 mg Oral BID sodium chloride flush 5-40 mL IntraVENous 2 times per day Continuous Infusions: dextrose sodium chloride sodium chloride PRN Meds: HYDROmorphone, glucose, dextrose, glucagon (rDNA), dextrose, sodium chloride flush, sodium chloride, oxyCODONE, albuterol, sodium chloride flush, sodium chloride, ondansetron OR ondansetron, acetaminophen OR acetaminophen, polyethylene glycol Data: Past Medical History: has a past medical history of Former smoker, Gangrene of toe (HCC), HTN (hypertension), PVD (peripheral vascular disease) (HCC), and Type 1 diabetes mellitus (HCC). Social History: reports that she quit smoking about 3 months ago. She quit after 25.00 years of use. She has never used smokeless tobacco. She reports current alcohol use. She reports that she does not use drugs. Family History: Family History Problem Relation Age of Onset Other Mother Other Father Diabetes Sister Vitals: BP 98/71 Pulse 96 Temp 98.2 F (36.8 C) (Oral) Resp 16 Ht 5' 4 (1.626 m) Wt 116 lb 13.5 oz (53 kg) SpO2 94% BMI 20.06 kg/m Temp (24hrs), Av.2 F (36.8 C), Min:97.7 F (36.5 C), Max:98.7 F (37.1 C) Recent Labs 07/02/21 0443 07/02/21 0807/02/21232507/03/21 0704 POCGLU 324* 221* 175* 178* I/O (24Hr): No intake or output data in the 24 hours ending 07/03/21 1103 Labs: Hematology: Recent Labs 07/01/21 04307/02/21442 WBC 5.7 5.2 RBC 3.03* 3.22* HGB 9.6* 10.3* HCT 28.8* 31.0* MCV 95.0 96.3 MCH 31.7 32.0 MCHC 33.3 33.2 RDW 12.9 13.1 PLT 215 250 MPV 10.0 10.5 Chemistry: Recent Labs 07/01/21 04307/02/21442 NA 132* 131* K 3.8 4.4 CL 97* 94* CO2 26 27 GLUCOSE 351* 358* BUN 8 9 CREATININE 0.97* 0.96* MG 1.8 1.8 ANIONGAP 9 10 LABGLOM 60* >60 GFRAA >60 >60 CALCIUM 8.6 9.3 PHOS 3.5 4.2 Recent Labs 06/30/21 1143 07/01/21 0439 07/01/21 0732 07/02/21 0256 07/02/21 0303 07/02/21 0443 07/02/21 0811 07/02/21 2326 07/03/21 0704 LABALBU -- 3.5 -- -- -- 3.8 -- -- -- URICACID 3.4 -- -- -- -- -- -- -- -- POCGLU -- -- < > 303* 324* 324* 221* 175* 178* < > = values in this interval not displayed. ABG:No results found for: POCPH, PHART, PH, POCPCO2, ZJS4LFC, PCO2, POCPO2, PO2ART, PO2, POCHCO3, LVX7ICE, HCO3, NBEA, PBEA, BEART, BE, THGBART, THB, WIN8VIL, KASE8UIO, C7IDJDYM, O2SAT, FIO2 No results found for: SPECIAL No results found for: CULTURE Radiology: XR CHEST (SINGLE VIEW FRONTAL) Result Date: 06/27/2021 No evidence of acute cardiopulmonary disease. CTA ABDOMINAL AORTA W BILAT RUNOFF W CONTRAST Result Date: 06/27/2021 1. Occlusion of the distal left SFA at the level of the stent. The popliteal artery is reconstituted and patent 3 vessel runoff is demonstrated. 2. Patent right lower extremity runoff. Scattered atheromatous plaque as above. 3. No aneurysm, dissection or acute aortic abnormality. 4. Diverticulosis. Physical Examination: General appearance: alert, cooperative and minimal distress due to pain left great toe Mental Status: oriented to person, place and time and normal affect Lungs: clear to auscultation bilaterally, normal effort Heart: regular rate and rhythm, no murmur Abdomen: soft, nontender, nondistended, normal bowel sounds, no masses, hepatomegaly, splenomegaly Extremities: + Small area of gangrene and redness around left great toe skin: no gross lesions, rashes, induration Assessment: Hospital Problems Last Modified POA Peripheral arterial disease (HCC) 06/27/2021 Yes Gangrene (HCC) 06/27/2021 Yes Primary hypertension 06/27/2021 Yes Type 1 diabetes mellitus (HCC) 06/27/2021 Yes S/p LLE angiogram, pharmacomechanical thrombectomy, angioplasty and stenting. POD # 5 Plan: 1. Continue Eliquis with starter pack 2. Oral pain medicines managed by vascular for better pain control 3. Manage DM: Using her own insulin pump 4. Manage HTN. Continue home meds. 5. DVT prophylaxis: Already on oral anticoagulation 6. GI prophylaxis 7. Discharge planning , cleared by vascular, podiatry has signed off Kaitlynn Holbrook MD 07/03/2021 11:03 AM * Mark Jha, DO - 07/03/2021 7:33 AM EDT Vascular Surgery Progress Note PATIENT NAME: Khris Mcgowan TODAY'S DATE: 07/03/2021, 7:33 AM SUBJECTIVE: Pt seen and examined. Ms Mcgowan is POD #5 s/p LLE angiogram, pharmacomechanical thrombectomy, angioplasty and stenting. Peers very comfortable this morning, difficult to fully arouse from sleep. Tolerating p.o. intake. OBJECTIVE: VITALS: BP 112/71 Pulse 96 Temp 98.2 F (36.8 C) (Oral) Resp 16 Ht 5' 4 (1.626 m) Wt 116 lb 13.5 oz (53 kg) SpO2 94% BMI 20.06 kg/m INTAKE/OUTPUT: No intake or output data in the 24 hours ending 07/03/21 0733 PHYSICAL EXAM GEN: Alert, awake, oriented, NAD HEENT: normocephalic, no scleral icterus, moist mucous membranes CV: regular, rate and rhythm LUNG: no respiratory distress, no audible wheezing ABDOMEN: soft, non-distended, non-tender EXTREMITIES: No edema or clubbing. Left great toe dark discoloration. Right and Left PT/ DP dopplersignals present also faintly palpable. Data: CBC with Differential: Lab Results Component Value Date WBC 5.2 07/02/2021 RBC 3.22 07/02/2021 HGB 10.3 07/02/2021 HCT 31.0 07/02/2021 PLT 250 07/02/2021 MCV 96.3 07/02/2021 MCH 32.0 07/02/2021 MCHC 33.2 07/02/2021 RDW 13.1 07/02/2021 LYMPHOPCT 28 06/28/2021 MONOPCT 6 06/28/2021 BASOPCT 1 06/28/2021 MONOSABS 0.75 06/28/2021 LYMPHSABS 3.25 06/28/2021 EOSABS 0.22 06/28/2021 BASOSABS 0.06 06/28/2021 BMP: Lab Results Component Value Date NA 131 07/02/2021 K 4.4 07/02/2021 CL 94 07/02/2021 CO2 27 07/02/2021 BUN 9 07/02/2021 LABALBU 3.8 07/02/2021 CREATININE 0.96 07/02/2021 CALCIUM 9.3 07/02/2021 GFRAA >60 07/02/2021 LABGLOM >60 07/02/2021 GLUCOSE 358 07/02/2021 Radiology Review: No new radiology to review this morning. ASSESSMENT 55 yo female POD #5 s/p LLE angiogram, pharmacomechanical thrombectomy, angioplasty and stenting. Plan 1. Continue Eliquis 10 mg BID (starter dose pack) from 06/30 - 07/07. Then continue Eliquis 5 mg BID. 2. Continue Pletal and Procardia. 3. Continue nitro-bid 2% ointment to left great toe. 4. Yumiko hugger PRN. 5. Neurovascular checks every 2 hours. 6. Wean off IV pain medications 7. Pain control with roxicodone and gabapentin. 8. Encourage IS and OOB. 9. Podiatry plans for no intervention at this time. 10. Medical management per primary. 11. Okay to discharge from a vascular surgery standpoint. Mark Jha DO PGY-3 General Surgery 07/03/21 7:33 AM * Winsome Keene MD - 07/03/2021 1:20 AM EDT Patient examined at bedside. Palpable pulses of PT, AT and DP of left lower extremity, confirmed with doppler. Patient provided ice pack and reassurance of care plan. Winsome Keene MD PGY-2 General Surgery 1:22 AM 07/03/21 * Varsha Cobos RN - 07/02/2021 10:58 PM EDT Patient is complaining of inner thigh pain in the left leg, vascular surgery made aware of patientsconcern. Nursing assessment showed No difference in pulse in left leg or foot from previous assessment before pain started. * Kaitlynn Holbrook MD - 07/02/2021 1:38 PM EDT Images from the original note were not included. [facility] Office: [phone] Agusto Price DO, Himanshu Maza DO, Fortino Brennan DO, Ralph Magdaleno DO, Kaitlynn Holbrook MD, Phuong Head MD, Rachid Rivas MD, Laury Villalobos MD, Shalonda Torres MD, Ishan Yap MD, Afia Kim MD, Bola Cox DO, Brandon Cuellar DO, Rekha Subramanian MD, Selam Venegas DO, MD Stephanie, Etienne Anne MD, Estuardo Gusman MD, Marce Price DO, Rufino Ambrosio MD, Vicente Michaels MD, Sandy Fox, RESERVATION SALES AGENT, Natali Montgomery, RESERVATION SALES AGENT, Kevin Candelaria, RESERVATION SALES AGENT, Steff Hill, RESERVATION SALES AGENT,Aleida Hugo, RESERVATION SALES AGENT, Jake Knutson, RESERVATION SALES AGENT, IRVIN Hurtado-C, Licha Simms, DNP, Denice Donaldson, RESERVATION SALES AGENT, Agustina Ragland, RESERVATION SALES AGENT, Amy Cruz, RESERVATION SALES AGENT, Georgia Talavera, MAIL ORDER BILLER, Ashley Ramey, DNP, Zohra Montalvo, RESERVATION SALES AGENT, Wayne, RESERVATION SALES AGENT, Josiane Otero, RESERVATION SALES AGENT 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 Non- / non female who presents with No chief complaint on file. and is admitted to the hospital for the management of <principal problem not specified>. Khris Mcgowan is a 55 year old female transferred from vascular surgeon office for direct admissionfor pain and gangrene to the left great toe. She states that she has been seen over the past several months on several occasions for pain and vascular disease to the left leg. She was admitted initially at [facility] and had a left femoral stent placed in May. Following discharge she was found to have clotted the stent and was re-admitted. She continued to have pain after discharge and had her sister drive her to [facility] ED where she had a vascular consult and established care with vascular MD. She went to office appointment today where she states they were unable to find pulses to her left foot. She was transferred for vascular intervention. She states that she has been unable to walk on the foot and pain has been unbearable requiring narcotic pain relief. In addition she has DM1and HTN. She states she is compliant with home medications and has an insulin pump for DM management. Review of Systems: Constitutional: negative for chills, fevers, sweats Respiratory: negative for cough, dyspnea on exertion, shortness of breath, wheezing Cardiovascular: negative for chest pain, chest pressure/discomfort, lower extremity edema, palpitations Gastrointestinal: negative for abdominal pain, constipation, diarrhea, nausea, vomiting Neurological: negative for dizziness, headache + Pain and small area of gangrene left great toe Medications: Allergies: Allergies Allergen Reactions Latex Rash Demerol Hcl [Meperidine] Nausea And Vomiting Current Meds: Scheduled Meds: insulin lispro 0-18 Units SubCUTAneous TID insulin lispro 0-9 Units SubCUTAneous Nightly apixaban 10 mg Oral BID Followed by [START ON 07/07/2021] apixaban 5 mg Oral BID sodium chloride flush 5-40 mL IntraVENous 2 times per day NIFEdipine 30 mg Oral Daily nitroglycerin 0.5 inch Topical 4 times per day cilostazol 100 mg Oral BID aspirin 81 mg Oral Daily gabapentin 300 mg Oral 3 times per day buPROPion 150 mg Oral QAM metoprolol tartrate 12.5 mg Oral BID sodium chloride flush 5-40 mL IntraVENous 2 times per day Continuous Infusions: dextrose sodium chloride sodium chloride PRN Meds: HYDROmorphone, glucose, dextrose, glucagon (rDNA), dextrose, sodium chloride flush, sodium chloride, oxyCODONE, albuterol, sodium chloride flush, sodium chloride, ondansetron OR ondansetron, acetaminophen OR acetaminophen, polyethylene glycol Data: Past Medical History: has a past medical history of Former smoker, Gangrene of toe (HCC), HTN (hypertension), PVD (peripheral vascular disease) (HCC), and Type 1 diabetes mellitus (HCC). Social History: reports that she quit smoking about 3 months ago. She quit after 25.00 years of use. She has never used smokeless tobacco. She reports current alcohol use. She reports that she does not use drugs. Family History: Family History Problem Relation Age of Onset Other Mother Other Father Diabetes Sister Vitals: BP 99/65 Pulse 85 Temp 97.7 F (36.5 C) (Oral) Resp 22 Ht 5' 4 (1.626 m) Wt 112 lb 14 oz (51.2 kg) SpO2 98% BMI 19.38 kg/m Temp (24hrs), Av F (36.7 C), Min:97.7 F (36.5 C), Max:98.2 F (36.8 C) Recent Labs 07/02/21 0256 07/02/21 0303 07/02/21 0443 07/02/21 0811 POCGLU 303* 324* 324* 221* I/O (24Hr): No intake or output data in the 24 hours ending 07/02/21 1338 Labs: Hematology: Recent Labs 06/30/21 0552 07/01/21 0439 07/02/21 0443 WBC 5.9 5.7 5.2 RBC 3.16* 3.03* 3.22* HGB 10.3* 9.6* 10.3* HCT 30.3* 28.8* 31.0* MCV 95.9 95.0 96.3 MCH 32.6 31.7 32.0 MCHC 34.0 33.3 33.2 RDW 13.0 12.9 13.1 PLT 228 215 250 MPV 10.1 10.0 10.5 Chemistry: Recent Labs 06/30/21 0552 07/01/21 0439 07/02/21 0443 NA 134* 132* 131* K 4.2 3.8 4.4 CL 100 97* 94* CO2 27 26 27 GLUCOSE 220* 351* 358* BUN 8 8 9 CREATININE 0.85 0.97* 0.96* MG 1.6 1.8 1.8 ANIONGAP 7* 9 10 LABGLOM >60 60* >60 GFRAA >60 >60 >60 CALCIUM 9.0 8.6 9.3 PHOS 3.6 3.5 4.2 Recent Labs 06/30/21 0552 06/30/21 1143 07/01/21 0439 07/01/21 0732 07/01/21205007/02/21 0256 07/02/21 0303 07/02/21 0443 07/02/21 0811 LABALBU 3.6 -- 3.5 -- -- -- -- 3.8 -- URICACID -- 3.4 -- -- -- -- -- -- -- POCGLU -- -- -- 303* 222* 303* 324* 324* 221* ABG:No results found for: POCPH, PHART, PH, POCPCO2, TWF2UNI, PCO2, POCPO2, PO2ART, PO2, POCHCO3, GIW9ELF, HCO3, NBEA, PBEA, BEART, BE, THGBART, THB, [id number], [id number], Q3RWOGQP, O2SAT, FIO2 No results found for: SPECIAL No results found for: CULTURE Radiology: XR CHEST (SINGLE VIEW FRONTAL) Result Date: 06/27/2021 No evidence of acute cardiopulmonary disease. CTA ABDOMINAL AORTA W BILAT RUNOFF W CONTRAST Result Date: 06/27/2021 1. Occlusion of the distal left SFA at the level of the stent. The popliteal artery is reconstituted and patent 3 vessel runoff is demonstrated. 2. Patent right lower extremity runoff. Scattered atheromatous plaque as above. 3. No aneurysm, dissection or acute aortic abnormality. 4. Diverticulosis. Physical Examination: General appearance: alert, cooperative and minimal distress due to pain left great toe Mental Status: oriented to person, place and time and normal affect Lungs: clear to auscultation bilaterally, normal effort Heart: regular rate and rhythm, no murmur Abdomen: soft, nontender, nondistended, normal bowel sounds, no masses, hepatomegaly, splenomegaly Extremities: + Small area of gangrene and redness around left great toe skin: no gross lesions, rashes, induration Assessment: Hospital Problems Last Modified POA Peripheral arterial disease (HCC) 06/27/2021 Yes Gangrene (HCC) 06/27/2021 Yes Primary hypertension 06/27/2021 Yes Type 1 diabetes mellitus (HCC) 06/27/2021 Yes S/p LLE angiogram, pharmacomechanical thrombectomy, angioplasty and stenting. POD # 4 Plan: 1. Transitioned heparin drip to Eliquis with starter pack 2. Oral pain medicines managed by vascular for better pain control 3. Manage DM: Lantus insulin 15 units daily and continue insulin sliding scale as her pump is againoff 4. Manage HTN. Continue home meds. 5. DVT prophylaxis: Already on oral anticoagulation 6. GI prophylaxis 7. Discharge planning , cleared by vascular, podiatry has signed off 8. Patient was not hallucinating at the time of my exam 9. Got message from nurse later that family is having concern about discharge regarding pain and potentially having hallucinations which have not been observed even by nurse taking care of the patient Kaitlynn Holbrook MD 07/02/2021 1:38 PM * Odalys Rick RN - 07/02/2021 10:54 AM EDT Patient and family having concerns about d/c. Primary messaged as well as primary with concerns about pain management and pt potentially having hallucinations. * Odalys Rick RN - 07/02/2021 9:53 AM EDT Messaged vascular per dr. holbrook's request to get orders for pain meds at d/c. * Mark Jha DO - 07/02/2021 8:40 AM EDT Vascular Surgery Progress Note PATIENT NAME: Khris Mcgowan TODAY'S DATE: 07/02/2021, 8:40 AM SUBJECTIVE: Pt seen and examined. Ms Mcgowan is POD #4 s/p LLE angiogram, pharmacomechanical thrombectomy, angioplasty and stenting. Patient appears very comfortable this morning, is very sleepy. Does not appear to be having as much pain. OBJECTIVE: VITALS: BP 108/62 Pulse 88 Temp 97.8 F (36.6 C) (Oral) Resp 16 Ht 5' 4 (1.626 m) Wt 112 lb 14 oz (51.2 kg) SpO2 98% BMI 19.38 kg/m INTAKE/OUTPUT: No intake or output data in the 24 hours ending 07/02/21 0840 PHYSICAL EXAM GEN: Alert, awake, oriented, NAD HEENT: normocephalic, no scleral icterus, moist mucous membranes CV: regular, rate and rhythm LUNG: no respiratory distress, no audible wheezing ABDOMEN: soft, non-distended, non-tender EXTREMITIES: No edema or clubbing. Left great toe dark discoloration. Right and Left PT/ DP dopplersignals present. Data: CBC with Differential: Lab Results Component Value Date WBC 5.2 07/02/2021 RBC 3.22 07/02/2021 HGB 10.3 07/02/2021 HCT 31.0 07/02/2021 PLT 250 07/02/2021 MCV 96.3 07/02/2021 MCH 32.0 07/02/2021 MCHC 33.2 07/02/2021 RDW 13.1 07/02/2021 LYMPHOPCT 28 06/28/2021 MONOPCT 6 06/28/2021 BASOPCT 1 06/28/2021 MONOSABS 0.75 06/28/2021 LYMPHSABS 3.25 06/28/2021 EOSABS 0.22 06/28/2021 BASOSABS 0.06 06/28/2021 BMP: Lab Results Component Value Date NA 131 07/02/2021 K 4.4 07/02/2021 CL 94 07/02/2021 CO2 27 07/02/2021 BUN 9 07/02/2021 LABALBU 3.8 07/02/2021 CREATININE 0.96 07/02/2021 CALCIUM 9.3 07/02/2021 GFRAA >60 07/02/2021 LABGLOM >60 07/02/2021 GLUCOSE 358 07/02/2021 Radiology Review: No new radiology to review this morning. ASSESSMENT 55 yo female POD #4 s/p LLE angiogram, pharmacomechanical thrombectomy, angioplasty and stenting. Plan 1. Continue Eliquis 10 mg BID (starter dose pack) from 06/30 - 07/07. Then continue Eliquis 5 mg BID. 2. Continue Pletal and Procardia. 3. Continue nitro-bid 2% ointment to left great toe. 4. Yumiko hugger PRN. 5. Neurovascular checks every 2 hours. 6. Wean off IV pain medications 7. Additional pain control with roxicodone and gabapentin. 8. Encourage IS and OOB. 9. Podiatry plans for no intervention at this time. 10. Medical management per primary. 11. Okay to discharge from a vascular surgery standpoint. Mark Jha DO PGY-3 General Surgery 07/02/21 8:40 AM * Kaitlynn Holbrook MD - 07/01/2021 2:08 PM EDT Images from the original note were not included. [facility] Office: [phone] Agusto Price DO, Himanshu Maza DO, Fortino Brennan DO, Ralph Magdaleno DO, Kaitlynn Holbrook MD, Phuong Head MD, Rachid Rivas MD, Laury Villalobos MD, Shalonda Torres MD, Ishan Yap MD, Afia Kim MD, Bola Cox DO, Brandon Cuellar DO, Rekha Subramanian MD, Selam Venegas DO, MD Stephanie, Etienne Anne MD, Estuardo Gusman MD, Marce Price DO, Rufino Ambrosio MD, Vicente Michaels MD, Sandy Fox CNP, Natali Montgomery CNP, Kevin Candelaria CNP, Steff Hill, RESERVATION SALES AGENT,Aleida Hugo, RESERVATION SALES AGENT, Jake Knutson, RESERVATION SALES AGENT, RICHAR HurtadoC, iLcha Simms, HOLLY, Denice Donaldson, KELI, Agustina Ragland, KELI, Amy Cruz CNP, Georgia Talavera, MAIL ORDER BILLER, Ashley Ramey, HOLLY, Zohra Montalvo, KELI, Wayne, RESERVATION SALES AGENT, Josiane Otero, KELI [facility] IN-PATIENT SERVICE [facility] Progress Note 07/01/2021 2:08 PM Name: Khris Mcgowan Acct: [id number] Room: [address] [place] [address] Day: 4 Admit Date: 06/27/2021 2:59 PM PCP: SIRI JOHNSON Code Status: Full Code Subjective: C/C: Pain left great toe Interval History Status: Patient had LLE angiogram, pharmacomechanical thrombectomy, angioplasty and stenting 06/28/2021 Still complaining of pain in left foot , off Dilaudid [employer], currently all oral pain medicines and oral nifedipine and Nitropaste on left great toe Blood sugars 351, A1c 7.4 currently on high intensity insulin sliding scale, using her own insulin pump, states has DM 1 Brief History: Khris Mcgowan is a 55 y.o. Non- / non female who presents with No chief complaint on file. and is admitted to the hospital for the management of <principal problem not specified>. Khris Mcgowan is a 55 year old female transferred from vascular surgeon office for direct admissionfor pain and gangrene to the left great toe. She states that she has been seen over the past several months on several occasions for pain and vascular disease to the left leg. She was admitted initially at [facility] and had a left femoral stent placed in May. Following discharge she was found to have clotted the stent and was re-admitted. She continued to have pain after discharge and had her sister drive her to [facility] ED where she had a vascular consult and established care with vascular MD. She went to office appointment today where she states they were unable to find pulses to her left foot. She was transferred for vascular intervention. She states that she has been unable to walk on the foot and pain has been unbearable requiring narcotic pain relief. In addition she has DM1and HTN. She states she is compliant with home medications and has an insulin pump for DM management. Review of Systems: Constitutional: negative for chills, fevers, sweats Respiratory: negative for cough, dyspnea on exertion, shortness of breath, wheezing Cardiovascular: negative for chest pain, chest pressure/discomfort, lower extremity edema, palpitations Gastrointestinal: negative for abdominal pain, constipation, diarrhea, nausea, vomiting Neurological: negative for dizziness, headache + Pain and small area of gangrene left great toe Medications: Allergies: Allergies Allergen Reactions Latex Rash Demerol Hcl [Meperidine] Nausea And Vomiting Current Meds: Scheduled Meds: insulin lispro 0-18 Units SubCUTAneous TID WC insulin lispro 0-9 Units SubCUTAneous Nightly apixaban 10 mg Oral BID Followed by [START ON 07/07/2021] apixaban 5 mg Oral BID scopolamine 1 patch TransDERmal Once sodium chloride flush 5-40 mL IntraVENous 2 times per day NIFEdipine 30 mg Oral Daily nitroglycerin 0.5 inch Topical 4 times per day cilostazol 100 mg Oral BID aspirin 81 mg Oral Daily gabapentin 300 mg Oral 3 times per day buPROPion 150 mg Oral QAM metoprolol tartrate 12.5 mg Oral BID sodium chloride flush 5-40 mL IntraVENous 2 times per day Continuous Infusions: dextrose sodium chloride sodium chloride PRN Meds: HYDROmorphone, glucose, dextrose, glucagon (rDNA), dextrose, sodium chloride flush, sodium chloride, oxyCODONE, albuterol, sodium chloride flush, sodium chloride, ondansetron OR ondansetron, acetaminophen OR acetaminophen, polyethylene glycol Data: Past Medical History: has a past medical history of Former smoker, Gangrene of toe (HCC), HTN (hypertension), PVD (peripheral vascular disease) (HCC), and Type 1 diabetes mellitus (HCC). Social History: reports that she quit smoking about 3 months ago. She quit after 25.00 years of use. She has never used smokeless tobacco. She reports current alcohol use. She reports that she does not use drugs. Family History: Family History Problem Relation Age of Onset Other Mother Other Father Diabetes Sister Vitals: BP 103/69 Pulse 92 Temp 98.1 F (36.7 C) (Oral) Resp 12 Ht 5' 4 (1.626 m) Wt 113 lb (51.3kg) SpO2 98% BMI 19.40 kg/m Temp (24hrs), Av.1 F (36.7 C), Min:97.7 F (36.5 C), Max:98.4 F (36.9 C) Recent Labs 06/28/21209906/29/21 0817 06/29/21 1230 07/01/21 0732 POCGLU 162* 92 150* 303* I/O (24Hr): Intake/Output Summary (Last 24 hours) at 07/01/2021 1408 Last data filed at 07/01/2021 0418 Gross per 24 hour Intake 5.7 ml Output Net 5.7 ml Labs: Hematology: Recent Labs 06/29/2162106/30/21 0552 07/01/21 0439 WBC 7.5 5.9 5.7 RBC 3.69* 3.16* 3.03* HGB 11.6* 10.3* 9.6* HCT 35.7* 30.3* 28.8* MCV 96.7 95.9 95.0 MCH 31.4 32.6 31.7 MCHC 32.5 34.0 33.3 RDW 13.7 13.0 12.9 PLT 318 228 215 MPV 9.6 10.1 10.0 Chemistry: Recent Labs 06/29/2162106/30/21 0552 07/01/21 0439 NA 139 134* 132* K 4.5 4.2 3.8 CL 103 100 97* CO2 24 27 26 GLUCOSE 75 220* 351* BUN 8 8 8 CREATININE 0.92* 0.85 0.97* MG 1.7 1.6 1.8 ANIONGAP 12 7* 9 LABGLOM >60 >60 60* GFRAA >60 >60 >60 CALCIUM 9.2 9.0 8.6 PHOS 4.3 3.6 3.5 Recent Labs 06/28/21209906/29/2162106/29/21 0817 06/29/21 1230 06/30/21 0552 06/30/21 1143 07/01/21 0439 07/01/21 0732 LABALBU -- 3.9 -- -- 3.6 -- 3.5 -- URICACID -- -- -- -- -- 3.4 -- -- POCGLU 162* -- 92 150* -- -- -- 303* ABG:No results found for: POCPH, PHART, PH, POCPCO2, BJS7CLZ, PCO2, POCPO2, PO2ART, PO2, POCHCO3, XPW6QZM, HCO3, NBEA, PBEA, BEART, BE, THGBART, THB, IYR6HMH, [id number], [id number], O2SAT, FIO2 No results found for: SPECIAL No results found for: CULTURE Radiology: XR CHEST (SINGLE VIEW FRONTAL) Result Date: 06/27/2021 No evidence of acute cardiopulmonary disease. CTA ABDOMINAL AORTA W BILAT RUNOFF W CONTRAST Result Date: 06/27/2021 1. Occlusion of the distal left SFA at the level of the stent. The popliteal artery is reconstituted and patent 3 vessel runoff is demonstrated. 2. Patent right lower extremity runoff. Scattered atheromatous plaque as above. 3. No aneurysm, dissection or acute aortic abnormality. 4. Diverticulosis. Physical Examination: General appearance: alert, cooperative and minimal distress due to pain left great toe Mental Status: oriented to person, place and time and normal affect Lungs: clear to auscultation bilaterally, normal effort Heart: regular rate and rhythm, no murmur Abdomen: soft, nontender, nondistended, normal bowel sounds, no masses, hepatomegaly, splenomegaly Extremities: + Small area of gangrene and redness around left great toe skin: no gross lesions, rashes, induration Assessment: Hospital Problems Last Modified POA Peripheral arterial disease (HCC) 06/27/2021 Yes Gangrene (HCC) 06/27/2021 Yes Primary hypertension 06/27/2021 Yes Type 1 diabetes mellitus (HCC) 06/27/2021 Yes S/p LLE angiogram, pharmacomechanical thrombectomy, angioplasty and stenting. POD # 3 Plan: 1. Transitioned heparin drip to Eliquis with starter pack 2. Oral pain medicines managed by vascular for better pain control 3. Manage DM: Patient may continue to use own insulin pump. Carb controlled diet with carb countingfor dosing. BS ac/hs., changed insulin sliding scale to high intensity 4. Manage HTN. Continue home meds. 5. DVT prophylaxis: Already on oral anticoagulation 6. GI prophylaxis 7. Discharge planning when cleared by vascular, podiatry has signed off Kaitlynn Holbrook MD 07/01/2021 2:08 PM * Priscila Loyola, CHEKO - 07/01/2021 9:54 AM EDT Images from the original note were not included. Progress Note Podiatric Medicine and Surgery Subjective CC: Left hallux gangrene Patient seen and examined at bedside. She is sleeping soundly, yumiko hugger in place to lower extremities. Afebrile, vital signs stable HPI : Khris Mcgowan is a 55 y.o. female seen at [facility] for worsening left hallux pain andgangrenous changes. 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 Over the past few months following procedure she noted that herleft hallux continue to get purple and blue in color. Patient states that for some time she has hadan issue with her circulation to her toes. She was seen by her vascular surgeon who sent her promptly to the ER for critical limb ischemia of the left foot since pulses were nonpalpable or audible onDoppler. Patient underwent a left femoral stent in May. Patient underwent a left angiogram which showed three-vessel runoff. Patient states that her right hallux is extremely painful at all times. She does note that she has a history of Raynaud's in her hands and has also noticed symptoms in her feet where her vessels going to spasm and turn white, red, and blue/purple after some time. Patient states that it affects her left foot more recently than her right. Denies any recent injuries or trauma. Patient is a type I diabetic with a recent A1c 7.4% as of 06/28/2021. ROS: Denies N/V/F/C/SOB/CP. Otherwise negative except at stated in the HPI. Medications: Scheduled Meds: insulin lispro 0-18 Units SubCUTAneous TID WC insulin lispro 0-9 Units SubCUTAneous Nightly apixaban 10 mg Oral BID Followed by [START ON 07/07/2021] apixaban 5 mg Oral BID scopolamine 1 patch TransDERmal Once sodium chloride flush 5-40 mL IntraVENous 2 times per day NIFEdipine 30 mg Oral Daily nitroglycerin 0.5 inch Topical 4 times per day cilostazol 100 mg Oral BID aspirin 81 mg Oral Daily gabapentin 300 mg Oral 3 times per day buPROPion 150 mg Oral QAM metoprolol tartrate 12.5 mg Oral BID sodium chloride flush 5-40 mL IntraVENous 2 times per day Continuous Infusions: dextrose sodium chloride sodium chloride PRN Meds:HYDROmorphone, glucose, dextrose, glucagon (rDNA), dextrose, sodium chloride flush, sodiumchloride, oxyCODONE, albuterol, sodium chloride flush, sodium chloride, ondansetron OR ondansetron, acetaminophen OR acetaminophen, polyethylene glycol Objective Vitals: Patient Vitals for the past 8 hrs: Pulse 07/01/21 0532 80 07/01/21 0418 85 07/01/21 0400 77 Average, Min, and Max for last 24 hours Vitals: TEMPERATURE: Temp Av.1 F (36.7 C) Min: 97.7 F (36.5 C) Max: 98.4 F (36.9 C) RESPIRATIONS RANGE: Resp Av.8 Min: 16 Max: 18 PULSE RANGE: Pulse Av.2 Min: 75 Max: 100 BLOOD PRESSURE RANGE: Systolic (24hrs), Av , Min:89 , Max:132 ; Diastolic (24hrs), Av, Min:57, Max:79 PULSE OXIMETRY RANGE: SpO2 Av.8 % Min: 98 % Max: 100 % I/O last 3 completed shifts: In: 320.2 [P.O.:300; I.V.:20.2] Out: - CBC: Recent Labs 06/29/21 0622 06/30/21 0552 07/01/21 0439 WBC 7.5 5.9 5.7 HGB 11.6* 10.3* 9.6* HCT 35.7* 30.3* 28.8* PLT 318 228 215 BMP: Recent Labs 06/29/21 0622 06/30/21 0552 07/01/21 0439 NA 139 134* 132* K 4.5 4.2 3.8 CL 103 100 97* CO2 24 27 26 BUN 8 8 8 CREATININE 0.92* 0.85 0.97* GLUCOSE 75 220* 351* CALCIUM 9.2 9.0 8.6 Coags: Recent Labs 06/30/21 0014 06/30/21 0649 06/30/21 1248 APTT 98.4* 70.8* 50.9* No results found for: SEDRATE No results for input(s): CRP in the last 72 hours. LLE Physical Exam: Vascular: DP/PT audible on doppler. CFT <3 seconds to all digits bilaterally except left hallux where CFT is less than 4 seconds. Hair growth is absent to the level of the digits. Minimal nonpitting edema. Neuro: Patient asleep Musculoskeletal: Gross deformity absent. Compartments soft & compressible. Dermatologic: No open wounds, dry stable eschar noted overlying the distal tuft of the hallux. Periwound cyanosis is improving, blanchable. No drainage noted, no mal odor. Erythema present from distal digits to dorsal midfoot with mild associated increase in warmth. No fluctuance, crepitus, or induration. Clinical Images: Imaging: XR FOOT LEFT (MIN 3 VIEWS) Final Result Unremarkable left foot. CTA ABDOMINAL AORTA W BILAT RUNOFF W CONTRAST Final Result 1. Occlusion of the distal left SFA at the level of the stent. The popliteal artery is reconstituted and patent 3 vessel runoff is demonstrated. 2. Patent right lower extremity runoff. Scattered atheromatous plaque as above. 3. No aneurysm, dissection or acute aortic abnormality. 4. Diverticulosis. XR CHEST (SINGLE VIEW FRONTAL) Final Result No evidence of acute cardiopulmonary disease. Assessment Khris Mcgowan is a 55 y.o. female with S/p LLE angiogram, pharmacomechanical thrombectomy, angioplasty, and stenting (DOS: 06/28/2021) Ischemic hallux with gangrenous changes, left hallux Suspected shower emboli, left foot PVD Type 1 diabetes with neuropathy History of Raynaud's Active Problems: Peripheral arterial disease (HCC) Gangrene (HCC) Primary hypertension Type 1 diabetes mellitus (HCC) Resolved Problems: * No resolved hospital problems. * Plan Patient seen and evaluated at bedside Continue medical management per primary Vascular following: Continue Eliquis Maintain better however Continue Nitropaste Overall limb ischemia of the left foot seems to be improving. Weightbearing as tolerated to Left lower extremity in surgical shoe. No acute surgical intervention. Podiatry to sign off at this time. Nursing to continue daily dressing changes. Please [facility] podiatry resident customer contact sales associate with any questions or concerns. Thank you. Will discuss with Dr. Nathalia Kaplan DPM Podiatric Medicine & Surgery 07/01/2021 at 9:54 AM I performed a history and physical examination of the patient and discussed management with the resident. I reviewed the resident s note and agree with the documented findings and plan of care. Any areas of disagreement are noted on the chart. I was personally present for the morocho portions of any procedures. I have documented in the chart those procedures where I was not present during the morocho portions. I have reviewed the Podiatry Resident progress note. I agree with the chief complaint, past medical history, past surgical history, allergies, medications, social and family history as documented unless otherwise noted below. Documentation of the HPI, Physical Exam and Medical Decision Making performed by medical students or scribes is based on my personal performance of the HPI, PE and MDM. I have personally evaluated this patient and have completed at least one if not all morocho elements of the E/M (history, physical exam, and MDM). Additional findings are as noted. Priscila Loyola DPM on 07/04/2021 at 2:09 PM Board Certified, [employer]iatric [employer] Fellow, [employer] * Kaitlynn Holbrook MD - 06/30/2021 1:32 PM EDT Images from the original note were not included. [facility] Office: [phone] Agusto Price DO, Himanshu Maza DO, Fortino Brennan DO, Ralph Magdaleno DO, Kaitlynn Holbrook MD, Phuong Head MD, Rachid Rivas MD, Laury Villalobos MD, Shalonda Torres MD, Ishan Yap MD, Afia Kim MD, Bola Cox DO, Brandon Cuellar DO, Rekha Subramanian MD, Selam Venegas DO, MD Stephanie, Etienne Anne MD, Estuardo Gusman MD, Marce Price DO, Rufino Ambrosio MD, Vicente Michaels MD, Sandy Fox, RESERVATION SALES AGENT, Natali Montgomery RESERVATION SALES AGENT, Kevin Candelaria, RESERVATION SALES AGENT, Steff Hill, RESERVATION SALES AGENT,Aleida Hugo, RESERVATION SALES AGENT, Jaek Knutson, RESERVATION SALES AGENT, Simeon Adhikari PA-C, Licha Simms, DNP, Denice Donaldson, RESERVATION SALES AGENT, Agustina Ragland, RESERVATION SALES AGENT, Amy Cruz, RESERVATION SALES AGENT, Georgia Talavera, MAIL ORDER BILLER, Ashley Ramey, DNP, Zohra Montalvo, RESERVATION SALES AGENT, Wayne, RESERVATION SALES AGENT, Josiane Otero, RESERVATION SALES AGENT [facility]PATIENT SERVICE [facility] Progress Note 06/30/2021 1:32 PM Name: Khris Mcgowan Acct: [id number] Room: [address] [place] [address] Day: 3 Admit Date: 06/27/2021 2:59 PM PCP: SIRI JOHNSON Code Status: Full Code Subjective: C/C: Pain left great toe Interval History Status: Patient had LLE angiogram, pharmacomechanical thrombectomy, angioplasty and stenting 06/28/2021 Still complaining of pain in left foot despite of Dilaudid GLOBAL CEO, oral nifedipine and Nitropaste on left great toe Blood sugars 220, currently on low intensity insulin sliding scale Probably has misplaced her insulin pump, states has DM 1 Brief History: Khris Mcgowan is a 55 y.o. Non- / non female who presents with No chief complaint on file. and is admitted to the hospital for the management of <principal problem not specified>. Khris Mcgowan is a 55 year old female transferred from vascular surgeon office for direct admissionfor pain and gangrene to the left great toe. She states that she has been seen over the past several months on several occasions for pain and vascular disease to the left leg. She was admitted initially at [facility] and had a left femoral stent placed in May. Following discharge she was found to have clotted the stent and was re-admitted. She continued to have pain after discharge and had her sister drive her to [facility] ED where she had a vascular consult and established care with vascular MD. She went to office appointment today where she states they were unable to find pulses to her left foot. She was transferred for vascular intervention. She states that she has been unable to walk on the foot and pain has been unbearable requiring narcotic pain relief. In addition she has DM1and HTN. She states she is compliant with home medications and has an insulin pump for DM management. Review of Systems: Constitutional: negative for chills, fevers, sweats Respiratory: negative for cough, dyspnea on exertion, shortness of breath, wheezing Cardiovascular: negative for chest pain, chest pressure/discomfort, lower extremity edema, palpitations Gastrointestinal: negative for abdominal pain, constipation, diarrhea, nausea, vomiting Neurological: negative for dizziness, headache + Pain and small area of gangrene left great toe Medications: Allergies: Allergies Allergen Reactions Latex Rash Demerol Hcl [Meperidine] Nausea And Vomiting Current Meds: Scheduled Meds: insulin lispro 0-18 Units SubCUTAneous TID WC insulin lispro 0-9 Units SubCUTAneous Nightly scopolamine 1 patch TransDERmal Once sodium chloride flush 5-40 mL IntraVENous 2 times per day NIFEdipine 30 mg Oral Daily nitroglycerin 0.5 inch Topical 4 times per day cilostazol 100 mg Oral BID aspirin 81 mg Oral Daily gabapentin 300 mg Oral 3 times per day buPROPion 150 mg Oral QAM metoprolol tartrate 12.5 mg Oral BID sodium chloride flush 5-40 mL IntraVENous 2 times per day Continuous Infusions: dextrose sodium chloride HYDROmorphone sodium chloride heparin (PORCINE) Infusion 20 Units/kg/hr (06/30/21 0557) PRN Meds: glucose, dextrose, glucagon (rDNA), dextrose, sodium chloride flush, sodium chloride, oxyCODONE, naloxone, albuterol, sodium chloride flush, sodium chloride, ondansetron OR ondansetron,acetaminophen OR acetaminophen, polyethylene glycol, heparin (porcine), heparin (porcine) Data: Past Medical History: has a past medical history of Former smoker, Gangrene of toe (HCC), HTN (hypertension), PVD (peripheral vascular disease) (HCC), and Type 1 diabetes mellitus (HCC). Social History: reports that she quit smoking about 3 months ago. She quit after 25.00 years of use. She has never used smokeless tobacco. She reports current alcohol use. She reports that she does not use drugs. Family History: Family History Problem Relation Age of Onset Other Mother Other Father Diabetes Sister Vitals: BP (!) 90/57 Pulse 75 Temp 98.2 F (36.8 C) (Oral) Resp 16 Ht 5' 4 (1.626 m) Wt 113 lb (51.3 kg) SpO2 100% BMI 19.40 kg/m Temp (24hrs), Av.5 F (36.9 C), Min:98.2 F (36.8 C), Max:99.1 F (37.3 C) Recent Labs 06/28/21 1153 06/28/21 2100 06/29/21 0817 06/29/21 1230 POCGLU 153* 162* 92 150* I/O (24Hr): Intake/Output Summary (Last 24 hours) at 06/30/2021 1332 Last data filed at 06/30/2021 0900 Gross per 24 hour Intake 440.05 ml Output Net 440.05 ml Labs: Hematology: Recent Labs 06/27/21 1804 06/27/21 1810 06/28/21 1827 06/29/21 0622 06/30/21 0552 WBC -- < > 11.7* 7.5 5.9 RBC -- < > 3.99 3.69* 3.16* HGB -- < > 13.0 11.6* 10.3* HCT -- < > 37.7 35.7* 30.3* MCV -- < > 94.5 96.7 95.9 MCH -- < > 32.6 31.4 32.6 MCHC -- < > 34.5 32.5 34.0 RDW -- < > 13.6 13.7 13.0 PLT -- < > 318 318 228 MPV -- < > 9.6 9.6 10.1 INR 1.2 -- -- -- -- < > = values in this interval not displayed. Chemistry: Recent Labs 06/28/21 0816 06/29/21 0622 06/30/21 0552 NA 132* 139 134* K 4.1 4.5 4.2 CL 102 103 100 CO2 21 24 27 GLUCOSE 147* 75 220* BUN 10 8 8 CREATININE 0.90 0.92* 0.85 MG 1.9 1.7 1.6 ANIONGAP 9 12 7* LABGLOM >60 >60 >60 GFRAA >60 >60 >60 CALCIUM 8.8 9.2 9.0 PHOS 4.6* 4.3 3.6 Recent Labs 06/28/21 0128 06/28/21 0736 06/28/21 0816 06/28/21 1153 06/28/21 2100 06/29/21 0622 06/29/21 0817 06/29/21 1230 06/30/21 0552 06/30/21 1143 LABALBU -- -- 3.3* -- -- 3.9 -- -- 3.6 -- LABA1C -- -- 7.4* -- -- -- -- -- -- -- URICACID -- -- -- -- -- -- -- -- -- 3.4 POCGLU 77 180* -- 153* 162* -- 92 150* -- -- ABG:No results found for: POCPH, PHART, PH, POCPCO2, CYS8CCJ, PCO2, POCPO2, PO2ART, PO2, POCHCO3, BKE8PDM, HCO3, NBEA, PBEA, BEART, BE, THGBART, THB, UPB7JXR, AAAI9YZX, U1NDJGAM, O2SAT, FIO2 No results found for: SPECIAL No results found for: CULTURE Radiology: XR CHEST (SINGLE VIEW FRONTAL) Result Date: 06/27/2021 No evidence of acute cardiopulmonary disease. CTA ABDOMINAL AORTA W BILAT RUNOFF W CONTRAST Result Date: 06/27/2021 1. Occlusion of the distal left SFA at the level of the stent. The popliteal artery is reconstituted and patent 3 vessel runoff is demonstrated. 2. Patent right lower extremity runoff. Scattered atheromatous plaque as above. 3. No aneurysm, dissection or acute aortic abnormality. 4. Diverticulosis. Physical Examination: General appearance: alert, cooperative and mild distress due to pain left great toe Mental Status: oriented to person, place and time and normal affect Lungs: clear to auscultation bilaterally, normal effort Heart: regular rate and rhythm, no murmur Abdomen: soft, nontender, nondistended, normal bowel sounds, no masses, hepatomegaly, splenomegaly Extremities: + Small area of gangrene and redness around left great toe skin: no gross lesions, rashes, induration Assessment: Hospital Problems Last Modified POA Peripheral arterial disease (HCC) 06/27/2021 Yes Gangrene (HCC) 06/27/2021 Yes Primary hypertension 06/27/2021 Yes Type 1 diabetes mellitus (HCC) 06/27/2021 Yes S/p LLE angiogram, pharmacomechanical thrombectomy, angioplasty and stenting. POD # 2 Plan: 1. Vascular recommending transitioning heparin drip to Eliquis with starter pack 2. Dilaudid GLOBAL CEO managed by vascular for better pain control 3. Manage DM: Patient may continue to use own insulin pump. Carb controlled diet with carb countingfor dosing. BS ac/hs., change insulin sliding scale to high intensity 4. Manage HTN. Continue home meds. 5. DVT prophylaxis: Already on anticoagulation 6. GI prophylaxis 7. Discharge planning when cleared by vascular and podiatry Kaitlynn Holbrook MD 06/30/2021 1:32 PM * Donna Clarke, MS, RD, LD - 06/30/2021 1:25 PM EDT Comprehensive Nutrition Assessment Type and Reason for Visit: Reassess Nutrition Recommendations/Plan: - Send Glucerna protein shakes with meals. - PO intake as tolerated. 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 Eating the majority of her meals. Requesting Glucernashakes TID. States she drinks ~2 containers daily at home. Malnutrition Assessment: Malnutrition Status: No malnutrition Context: Acute Illness Findings of the 6 clinical characteristics of malnutrition: Energy Intake: Mild decrease in energy intake (Comment) Weight Loss: Unable to assess Body Fat Loss: No significant body fat loss Muscle Mass Loss: No significant muscle mass loss Fluid Accumulation: No significant fluid accumulation Type Inspector Strength: Not Performed Estimated Daily Nutrient Needs: Energy (kcal): 28-32 kcal/kg = 9827-9937 kcals/day; Weight Used for Energy Requirements: Current Protein (g): 1.5 gm/kg = 75 gm pro/day; Weight Used for Protein Requirements: Admission Fluid (ml/day): 30 mL/kg = 1500 mL/day or per MD; Method Used for Fluid Requirements: ml/Kg Nutrition Related Findings: meds/labs reviewed Wounds: (Gangrene to left great toe) Current Nutrition Therapies: ADULT DIET; Regular; 4 carb choices (60 gm/meal) Anthropometric Measures: Height: 5' 4 (162.6 cm) Current Body Weight: 113 lb 1.5 oz (51.3 kg) Admission Body Weight: 108 lb 0.4 oz (49 kg) [place] Body Weight: 120 lbs; % [place] Body Weight 94.2 % BMI: 19.4 BMI Categories: Normal Weight (BMI 18.5-24.9) Nutrition Diagnosis: Inadequate oral intake (resolving) related to pain as evidenced by poor intake prior to admission Nutrition Interventions: Food and/or Nutrient Delivery: Continue Current Diet,Start Oral Nutrition Supplement Nutrition Education/Counseling: No recommendation at this time Coordination of Nutrition Care: Continue to monitor while inpatient Goals: Meet at least 50% of estimated nutrition needs. Nutrition Monitoring and Evaluation: Behavioral-Environmental Outcomes: None Identified Food/Nutrient Intake Outcomes: Food and Nutrient Intake,Supplement Intake Physical Signs/Symptoms Outcomes: Weight,Biochemical Data,Nutrition Focused Physical Findings,Skin Discharge Planning: Continue Oral Nutrition Supplement Contact: [phone] * Priscila Loyola DPM - 06/30/2021 11:21 AM EDT Images from the original note were not included. Progress Note Podiatric Medicine and Surgery Subjective CC: Left hallux gangrene Patient seen and examined at bedside. No acute events overnight. Afebrile, vital signs stable Pain and discoloration to left foot much improved since previous exam however patient does continueto complain of persistent pain to the medial aspect the left foot. HPI : Khris Mcgowan is a 55 y.o. female seen at [facility] for worsening left hallux pain andgangrenous changes. 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 Over the past few months following procedure she noted that herleft hallux continue to get purple and blue in color. Patient states that for some time she has hadan issue with her circulation to her toes. She was seen by her vascular surgeon who sent her promptly to the ER for critical limb ischemia of the left foot since pulses were nonpalpable or audible onDoppler. Patient underwent a left femoral stent in May. Patient underwent a left angiogram which showed three- vessel runoff. Patient states that her right hallux is extremely painful at all times. She does note that she has a history of Raynaud's in her hands and has also noticed symptoms in her feet where her vessels going to spasm and turn white, red, and blue/purple after some time. Patient states that it affects her left foot more recently than her right. Denies any recent injuries or trauma. Patient is a type I diabetic with a recent A1c 7.4% as of 06/28/2021. ROS: Denies N/V/F/C/SOB/CP. Otherwise negative except at stated in the HPI. Medications: Scheduled Meds: insulin lispro 0-18 Units SubCUTAneous TID WC insulin lispro 0-9 Units SubCUTAneous Nightly scopolamine 1 patch TransDERmal Once sodium chloride flush 5-40 mL IntraVENous 2 times per day NIFEdipine 30 mg Oral Daily nitroglycerin 0.5 inch Topical 4 times per day cilostazol 100 mg Oral BID aspirin 81 mg Oral Daily gabapentin 300 mg Oral 3 times per day buPROPion 150 mg Oral QAM metoprolol tartrate 12.5 mg Oral BID sodium chloride flush 5-40 mL IntraVENous 2 times per day Continuous Infusions: dextrose sodium chloride HYDROmorphone sodium chloride heparin (PORCINE) Infusion 20 Units/kg/hr (06/30/21 0557) PRN Meds:glucose, dextrose, glucagon (rDNA), dextrose, sodium chloride flush, sodium chloride, oxyCODONE, naloxone, albuterol, sodium chloride flush, sodium chloride, ondansetron OR ondansetron, acetaminophen OR acetaminophen, polyethylene glycol, heparin (porcine), heparin (porcine) Objective Vitals: Patient Vitals for the past 8 hrs: BP Temp Temp src Pulse Resp SpO2 Weight 06/30/21 0600 -- -- -- -- -- -- 113 lb (51.3 kg) 06/30/21 0400 120/76 -- -- 90 -- 99 % -- 06/30/21 0345 120/76 98.2 F (36.8 C) Oral 80 20 98 % -- Average, Min, and Max for last 24 hours Vitals: TEMPERATURE: Temp Av.8 F (37.1 C) Min: 98.2 F (36.8 C) Max: 99.4 F (37.4 C) RESPIRATIONS RANGE: Resp Av.7 Min: 11 Max: 20 PULSE RANGE: Pulse Av.4 Min: 76 Max: 94 BLOOD PRESSURE RANGE: Systolic (24hrs), Av , Min:103 , Max:144 ; Diastolic (24hrs), Av, Min:60, Max:90 PULSE OXIMETRY RANGE: SpO2 Av.4 % Min: 94 % Max: 100 % I/O last 3 completed shifts: In: 450.1 [P.O.:300; I.V.:150.1] Out: - CBC: Recent Labs 06/28/21 1827 06/29/21 0622 06/30/21 0552 WBC 11.7* 7.5 5.9 HGB 13.0 11.6* 10.3* HCT 37.7 35.7* 30.3* PLT 318 318 228 BMP: Recent Labs 06/28/21 0816 06/29/21 0622 06/30/21 0552 NA 132* 139 134* K 4.1 4.5 4.2 CL 102 103 100 CO2 21 24 27 BUN 10 8 8 CREATININE 0.90 0.92* 0.85 GLUCOSE 147* 75 220* CALCIUM 8.8 9.2 9.0 Coags: Recent Labs 06/27/21 1804 06/27/21 1952 06/29/21 1638 06/30/21 0014 06/30/21 0649 APTT -- < > 58.4* 98.4* 70.8* INR 1.2 -- -- -- -- < > = values in this interval not displayed. No results found for: SEDRATE No results for input(s): CRP in the last 72 hours. Physical Exam: Vascular: DP pulse on the left is weakly palpable and audible, DP on left and PT pulses bilaterallyare palpable. CFT <3 seconds to all digits bilaterally except left hallux where CFT is less than5 seconds. Hair growth is absent to the level of the digits. Nonpitting edema left foot edema. Neuro: Saph/sural/SP/DP/plantar sensation diminished to light touch. Musculoskeletal: Muscle strength is 4/5 to all lower extremity muscle groups, more guarded on the left than the right. Gross deformity is absent. Significant pain to palpation to the left hallux. Dermatologic: Dry stable eschar noted overlying the distal tuft of the left hallux. Left hallux is noted to have some pallor but overall improved since previous exam. Periwound cyanosis is improving.No drainage noted with no associated mal odor. Erythema present from distal digits to dorsal midfoot with mild associated increase in warmth. Does not probe to bone, sinus track, or undermine. No fluctuance, crepitus, or induration. Clinical Images: Imaging: XR FOOT LEFT (MIN 3 VIEWS) Final Result Unremarkable left foot. CTA ABDOMINAL AORTA W BILAT RUNOFF W CONTRAST Final Result 1. Occlusion of the distal left SFA at the level of the stent. The popliteal artery is reconstituted and patent 3 vessel runoff is demonstrated. 2. Patent right lower extremity runoff. Scattered atheromatous plaque as above. 3. No aneurysm, dissection or acute aortic abnormality. 4. Diverticulosis. XR CHEST (SINGLE VIEW FRONTAL) Final Result No evidence of acute cardiopulmonary disease. Assessment Khris Mcgowan is a 55 y.o. female with Ischemic hallux with gangrenous changes, left hallux Suspected shower emboli, left foot PVD Type 1 diabetes with neuropathy History of Raynaud's Active Problems: Peripheral arterial disease (HCC) Gangrene (HCC) Primary hypertension Type 1 diabetes mellitus (HCC) Resolved Problems: * No resolved hospital problems. * Plan Patient examined and evaluated at bedside Treatment options discussed in detail with the patient Radiographs of left foot reviewed: Low suspicion for osteomyelitis or gas Medical management per primary Vascular following: Heparin GTT with plan to transition to Eliquis Maintain better however Continue Nitropaste Continue plan to home Procardia Overall limb ischemia of the left foot seems to be improving. Patient's pain is persistent however it is improving. No plan for surgical intervention at this time. We will continue to follow to ensure resolution of ischemic event. Further care can be established outpatient. Dressing applied to Left foot: Betadine wet-to-dry, DSD Weightbearing as tolerated to Left lower extremity Discussed with Dr. Nathalia Durant DPM Podiatric Medicine & Surgery 06/30/2021 at 11:21 AM I performed a history and physical examination of the patient and discussed management with the resident. I reviewed the resident s note and agree with the documented findings and plan of care. Any areas of disagreement are noted on the chart. I was personally present for the morocho portions of any procedures. I have documented in the chart those procedures where I was not present during the morocho portions. I have reviewed the Podiatry Resident progress note. I agree with the chief complaint, past medical history, past surgical history, allergies, medications, social and family history as documented unless otherwise noted below. Documentation of the HPI, Physical Exam and Medical Decision Making performed by medical students or scribes is based on my personal performance of the HPI, PE and MDM. I have personally evaluated this patient and have completed at least one if not all morocho elements of the E/M (history, physical exam, and MDM). Additional findings are as noted. Priscila Loyola DPM on 07/01/2021 at 7:13 AM Board Certified, [employer]iatric [employer] Fellow, [employer] * Mark Jha DO - 06/30/2021 8:17 AM EDT Vascular Surgery Progress Note PATIENT NAME: Khris Mcgowan TODAY'S DATE: 06/30/2021, 8:17 AM SUBJECTIVE: Pt seen and examined. Ms. Mcgowan is POD #2 s/p LLE angiogram, pharmacomechanical thrombectomy, angioplasty and stenting. She is complaining of left toe/foot pain overnight. It is controlled with painmeds and with making lower extremity more dependent. Denies any CP, SOB, abdominal pain, n/v, fevers or chills overnight. Tolerating some PO. VSS. Afebrile. Morning labs reviewed. WBC 7.5, Hgb 11.6, BUN 8, Cr 0.92, Mg 1.7, PTT 48.8. RN also reports no acute events overnight. OBJECTIVE: VITALS: BP 120/76 Pulse 90 Temp 98.2 F (36.8 C) (Oral) Resp 20 Ht 5' 4 (1.626 m) Wt 113 lb (51.3 kg) SpO2 99% BMI 19.40 kg/m INTAKE/OUTPUT: Intake/Output Summary (Last 24 hours) at 06/30/2021 0817 Last data filed at 06/30/2021 0400 Gross per 24 hour Intake 443.55 ml Output Net 443.55 ml PHYSICAL EXAM GEN: Alert, awake, oriented, NAD HEENT: normocephalic, no scleral icterus, moist mucous membranes CV: regular rate and rhythm LUNG: no respiratory distress, no audible wheezing ABDOMEN: soft, non-distended, non-tender EXTREMITIES: Right DP/PT palpable and doppler signals present. Left PT doppler signals present. SKIN: Left great toe dark discoloration. Data: CBC with Differential: Lab Results Component Value Date WBC 5.9 06/30/2021 RBC 3.16 06/30/2021 HGB 10.3 06/30/2021 HCT 30.3 06/30/2021 PLT 228 06/30/2021 MCV 95.9 06/30/2021 MCH 32.6 06/30/2021 MCHC 34.0 06/30/2021 RDW 13.0 06/30/2021 LYMPHOPCT 28 06/28/2021 MONOPCT 6 06/28/2021 BASOPCT 1 06/28/2021 MONOSABS 0.75 06/28/2021 LYMPHSABS 3.25 06/28/2021 EOSABS 0.22 06/28/2021 BASOSABS 0.06 06/28/2021 BMP: Lab Results Component Value Date NA 134 06/30/2021 K 4.2 06/30/2021 CL 100 06/30/2021 CO2 27 06/30/2021 BUN 8 06/30/2021 LABALBU 3.6 06/30/2021 CREATININE 0.85 06/30/2021 CALCIUM 9.0 06/30/2021 GFRAA >60 06/30/2021 LABGLOM >60 06/30/2021 GLUCOSE 220 06/30/2021 Radiology Review: No new radiology to review this morning. ASSESSMENT 55 yo female POD #2 s/p LLE angiogram, pharmacomechanical thrombectomy, angioplasty and stenting. Plan 1. Continue heparin ggt, OK to transfer back to PO anticoagulation, would recommend transition to Eliquis with the first week double dosed like the starter dose pack as if she had a DVT/PE 2. Continue yumiko hugger PRN 3. Continue nitro-bid 2% ointment to left great toe 4. Continue Pletal and Procardia 5. Neurovascular checks every 2 hours. 6. Recommend weaning GLOBAL CEO to get patient off IV pain meds 7. Encourage IS and OOB. 8. Follow up podiatry plans 9. We will continue to follow Ms. Mcgowan. Thank you. Mark Jha DO PGY-3 General Surgery 06/30/21 8:17 AM Associated attestation - Denise Malcolm MD - 06/30/2021 5:15 PM EDT Patient with improved doppler signal in the foot. Transition to Eliquis BID. Podiatry input noted. Allow toe to demarcate prior to amputation. * Kaitlynn Holbrook MD - 06/29/2021 1:42 PM EDT Images from the original note were not included. [facility] Office: [phone] Agusto Price DO, Himanshu Maza DO, Fortino Brennan DO, Ralph Magdaleno DO, Kaitlynn Holbrook MD, Phuong Head MD, Rachid Rivas MD, Laury Villalobos MD, Shalonda Torres MD, Ishan Yap MD, Afia Kim MD, Bola Cox DO, Brandon Cuellar DO, Rekha Subramanian MD, Selam Venegas DO, MD Stephanie, Etienne Anne MD, Estuardo Gusman MD, Marce Price DO, Rufino Ambrosio MD, Vicente Michaels MD, Sandy Fox, RESERVATION SALES AGENT, Natali Montgomery, RESERVATION SALES AGENT, Kevin Candelaria, RESERVATION SALES AGENT, Steff Hill, RESERVATION SALES AGENT,Aleida Hugo, RESERVATION SALES AGENT, Jake Knutson, RESERVATION SALES AGENT, Simeon Adhikari PA-C, Licha Simms, HOLLY, Denice Donaldson, RESERVATION SALES AGENT, Agustina Ragland, RESERVATION SALES AGENT, Amy Cruz, RESERVATION SALES AGENT, Georgia Talavera, MAIL ORDER BILLER, Ashley Ramey, HOLLY, Zohra Montalvo, KELI, KELI Black, Josiane Otero, RESERVATION SALES AGENT [facility] IN-PATIENT SERVICE [facility] Progress Note 06/29/2021 1:42 PM Name: Khris Mcgowan Acct: [id number] Room: [address] [place] [address] Day: 2 Admit Date: 06/27/2021 2:59 PM PCP: SIRI JOHNSON Code Status: Full Code Subjective: C/C: Pain left great toe Interval History Status: Patient had LLE angiogram, pharmacomechanical thrombectomy, angioplasty and stenting yesterday 06/28/2021 Was complaining of pain in left foot got IV pain medicines and Nitropaste on left great toe Still has pain but is improving Blood sugars 75-150, currently on insulin sliding scale Has insulin pump in place, states has DM 1 Brief History: Khris Mcgwoan is a 55 y.o. Non- / non female who presents with No chief complaint on file. and is admitted to the hospital for the management of <principal problem not specified>. Khris Mcgowan is a 55 year old female transferred from vascular surgeon office for direct admissionfor pain and gangrene to the left great toe. She states that she has been seen over the past several months on several occasions for pain and vascular disease to the left leg. She was admitted initially at [facility] and had a left femoral stent placed in May. Following discharge she was found to have clotted the stent and was re-admitted. She continued to have pain after discharge and had her sister drive her to [facility] ED where she had a vascular consult and established care with vascular MD. She went to office appointment today where she states they were unable to find pulses to her left foot. She was transferred for vascular intervention. She states that she has been unable to walk on the foot and pain has been unbearable requiring narcotic pain relief. In addition she has DM1and HTN. She states she is compliant with home medications and has an insulin pump for DM management. Review of Systems: Constitutional: negative for chills, fevers, sweats Respiratory: negative for cough, dyspnea on exertion, shortness of breath, wheezing Cardiovascular: negative for chest pain, chest pressure/discomfort, lower extremity edema, palpitations Gastrointestinal: negative for abdominal pain, constipation, diarrhea, nausea, vomiting Neurological: negative for dizziness, headache + Pain and small area of gangrene left great toe Medications: Allergies: Allergies Allergen Reactions Latex Rash Demerol Hcl [Meperidine] Nausea And Vomiting Current Meds: Scheduled Meds: scopolamine 1 patch TransDERmal Once insulin lispro 0-6 Units SubCUTAneous TID WC insulin lispro 0-3 Units SubCUTAneous Nightly sodium chloride flush 5-40 mL IntraVENous 2 times per day NIFEdipine 30 mg Oral Daily nitroglycerin 0.5 inch Topical 4 times per day cilostazol 100 mg Oral BID aspirin 81 mg Oral Daily gabapentin 300 mg Oral 3 times per day buPROPion 150 mg Oral QAM metoprolol tartrate 12.5 mg Oral BID sodium chloride flush 5-40 mL IntraVENous 2 times per day Continuous Infusions: dextrose sodium chloride HYDROmorphone sodium chloride heparin (PORCINE) Infusion 20 Units/kg/hr (06/29/21 0745) PRN Meds: glucose, dextrose, glucagon (rDNA), dextrose, sodium chloride flush, sodium chloride, oxyCODONE, naloxone, albuterol, sodium chloride flush, sodium chloride, ondansetron OR ondansetron,acetaminophen OR acetaminophen, polyethylene glycol, heparin (porcine), heparin (porcine) Data: Past Medical History: has a past medical history of Former smoker, Gangrene of toe (HCC), HTN (hypertension), PVD (peripheral vascular disease) ([facility]), and Type 1 diabetes mellitus (HCC). Social History: reports that she quit smoking about 3 months ago. She quit after 25.00 years of use. She has never used smokeless tobacco. She reports current alcohol use. She reports that she does not use drugs. Family History: Family History Problem Relation Age of Onset Other Mother Other Father Diabetes Sister Vitals: BP 127/67 Pulse 77 Temp 97.9 F (36.6 C) (Oral) Resp 19 Ht 5' 4 (1.626 m) Wt 108 lb 0.4 oz (49 kg) SpO2 98% BMI 18.54 kg/m Temp (24hrs), Av.8 F (36.6 C), Min:97.7 F (36.5 C), Max:97.9 F (36.6 C) Recent Labs 06/28/21 1153 06/28/21 2100 06/29/21 0817 06/29/21 1230 POCGLU 153* 162* 92 150* I/O (24Hr): Intake/Output Summary (Last 24 hours) at 06/29/2021 1342 Last data filed at 06/29/2021 0600 Gross per 24 hour Intake 6.5 ml Output Net 6.5 ml Labs: Hematology: Recent Labs 06/27/21 1804 06/27/21 1810 06/28/21 0816 06/28/21 1827 06/29/21 06 WBC -- < > 6.2 11.7* 7.5 RBC -- < > 3.76* 3.99 3.69* HGB -- < > 12.1 13.0 11.6* HCT -- < > 37.5 37.7 35.7* MCV -- < > 99.7 94.5 96.7 MCH -- < > 32.2 32.6 31.4 MCHC -- < > 32.3 34.5 32.5 RDW -- < > 13.8 13.6 13.7 PLT -- < > 355 318 318 MPV -- < > 9.8 9.6 9.6 INR 1.2 -- -- -- -- < > = values in this interval not displayed. Chemistry: Recent Labs 06/27/21 1810 06/28/21 0816 06/29/21621 NA 138 132* 139 K 3.9 4.1 4.5 CL 101 102 103 CO2 24 21 24 GLUCOSE 133* 147* 75 BUN 6 10 8 CREATININE 0.77 0.90 0.92* MG -- 1.9 1.7 ANIONGAP 13 9 12 LABGLOM >60 >60 >60 GFRAA >60 >60 >60 CALCIUM 9.4 8.8 9.2 PHOS -- 4.6* 4.3 Recent Labs 06/28/21 0128 06/28/21 0736 06/28/21 0816 06/28/21 1153 06/28/21 2100 06/29/21 0622 06/29/21 0817 06/29/21 1230 LABALBU -- -- 3.3* -- -- 3.9 -- -- LABA1C -- -- 7.4* -- -- -- -- -- POCGLU 77 180* -- 153* 162* -- 92 150* ABG:No results found for: POCPH, PHART, PH, POCPCO2, VRV1PEO, PCO2, POCPO2, PO2ART, PO2, POCHCO3, TNZ0PWH, HCO3, NBEA, PBEA, BEART, BE, THGBART, THB, KLW1PSX, UJPF5HLK, O7LJWTTR, O2SAT, FIO2 No results found for: SPECIAL No results found for: CULTURE Radiology: XR CHEST (SINGLE VIEW FRONTAL) Result Date: 06/27/2021 No evidence of acute cardiopulmonary disease. CTA ABDOMINAL AORTA W BILAT RUNOFF W CONTRAST Result Date: 06/27/2021 1. Occlusion of the distal left SFA at the level of the stent. The popliteal artery is reconstituted and patent 3 vessel runoff is demonstrated. 2. Patent right lower extremity runoff. Scattered atheromatous plaque as above. 3. No aneurysm, dissection or acute aortic abnormality. 4. Diverticulosis. Physical Examination: General appearance: alert, cooperative and mild distress due to pain left great toe Mental Status: oriented to person, place and time and normal affect Lungs: clear to auscultation bilaterally, normal effort Heart: regular rate and rhythm, no murmur Abdomen: soft, nontender, nondistended, normal bowel sounds, no masses, hepatomegaly, splenomegaly Extremities: + Small area of gangrene and redness around left great toe skin: no gross lesions, rashes, induration Assessment: Hospital Problems Last Modified POA Peripheral arterial disease (HCC) 06/27/2021 Yes Gangrene (HCC) 06/27/2021 Yes Primary hypertension 06/27/2021 Yes Type 1 diabetes mellitus (HCC) 06/27/2021 Yes S/p LLE angiogram, pharmacomechanical thrombectomy, angioplasty and stenting. POD # 1 Plan: 1. Vascular recommending to continue heparin drip for today 2. Dilaudid GLOBAL CEO has been started by vascular for better pain control 3. Manage DM: Patient may continue to use own insulin pump. Carb controlled diet with carb countingfor dosing. BS ac/hs. 4. Manage HTN. Continue home meds. 5. DVT prophylaxis: Currently already on heparin drip 6. GI prophylaxis Kaitlynn Holbrook MD 06/29/2021 1:42 PM * Mark Jha, DO - 06/29/2021 8:15 AM EDT Vascular Surgery Progress Note PATIENT NAME: Khris Mcgowan TODAY'S DATE: 06/29/2021, 8:15 AM SUBJECTIVE: Pt seen and examined. Ms. Mcgowan is POD #1 s/p LLE angiogram, pharmacomechanical thrombectomy, angioplasty and stenting. She is complaining of left foot pain overnight. It is controlled with pain meds. Denies any CP, SOB, abdominal pain, n/v, fevers or chills overnight. She has ambulated after the procedure and is tolerating a diet and liquids very well. Good UOP, using a bed marlow. Has not had anybowel movements in 3 days. Patient was placed on 2L NC with SpO2 of 98% while she is sleeping. VSS. Afebrile. Morning labs reviewed. WBC 7.5, Hgb 11.6, BUN 8, Cr 0.92, Mg 1.7, PTT 48.8. RN also reports no acute events overnight. OBJECTIVE: VITALS: BP 127/67 Pulse 77 Temp 97.9 F (36.6 C) (Oral) Resp 19 Ht 5' 4 (1.626 m) Wt 108 lb 0.4 oz (49 kg) SpO2 98% BMI 18.54 kg/m INTAKE/OUTPUT: Intake/Output Summary (Last 24 hours) at 06/29/2021 0815 Last data filed at 06/29/2021 0600 Gross per 24 hour Intake 6.5 ml Output Net 6.5 ml PHYSICAL EXAM GEN: Alert, awake, oriented, NAD HEENT: normocephalic, no scleral icterus, moist mucous membranes CV: regular rate and rhythm LUNG: no respiratory distress, no audible wheezing ABDOMEN: soft, non-distended, non-tender EXTREMITIES: Right DP/PT palpable and doppler signals present. Left PT doppler signals present. SKIN: Left great toe dark discoloration. Data: CBC with Differential: Lab Results Component Value Date WBC 7.5 06/29/2021 RBC 3.69 06/29/2021 HGB 11.6 06/29/2021 HCT 35.7 06/29/2021 PLT 318 06/29/2021 MCV 96.7 06/29/2021 MCH 31.4 06/29/2021 MCHC 32.5 06/29/2021 RDW 13.7 06/29/2021 LYMPHOPCT 28 06/28/2021 MONOPCT 6 06/28/2021 BASOPCT 1 06/28/2021 MONOSABS 0.75 06/28/2021 LYMPHSABS 3.25 06/28/2021 EOSABS 0.22 06/28/2021 BASOSABS 0.06 06/28/2021 BMP: Lab Results Component Value Date NA 139 06/29/2021 K 4.5 06/29/2021 CL 103 06/29/2021 CO2 24 06/29/2021 BUN 8 06/29/2021 LABALBU 3.9 06/29/2021 CREATININE 0.92 06/29/2021 CALCIUM 9.2 06/29/2021 GFRAA >60 06/29/2021 LABGLOM >60 06/29/2021 GLUCOSE 75 06/29/2021 Radiology Review: No new radiology to review this morning. ASSESSMENT 55 yo female POD #1 s/p LLE angiogram, pharmacomechanical thrombectomy, angioplasty and stenting. Plan 1. Continue heparin ggt. 2. Continue yumiko hugger. 3. Continue nitro-bid 2% ointment to Left great toe 4. Started Pletal and Procardia 5. Neurovascular checks every 2 hours. 6. Pain control. 7. Encourage IS and OOB. 8. Diet: adult regular diet. 9. We will continue to follow Ms. Mcgowan. Thank you. Ewa Davila, MS3 Vascular Surgery Service [facility] 06/29/2021 at 8:26 AM Addendum: Patient seen and examined with Medical Student and Surgical Team. Agree with assessment and plan with changes made accordingly. Mark Jha DO PGY-3 General Surgery 06/29/21 8:54 AM Associated attestation - Denise Malcolm MD - 06/30/2021 5:14 PM EDT Robust PT, doppler DP. Patient looks comfortable on GLOBAL CEO. Will transition to oral pain meds when possible for discharge. Podiatry to evaluate * Mark Jha DO - 06/28/2021 5:44 PM EDT Evaluated post procedure she is having increased pain in her left foot. Left foot is currently morepale than right foot and currently does not have any doppler signals on left PT/DP. Suspect vasospasm at this time. Recommend continuing heparin drip, yumiko hugger to lower extremities, nitropaste to left great toe, neurovascular checks every 2 hours. Will also order a TEG and CBC. Mark Jha DO PGY 3 General Surgery Resident 06/28/21 5:47 PM * Lara Michel RD, LD - 06/28/2021 3:46 PM EDT Comprehensive Nutrition Assessment Type and Reason for Visit: Initial,Positive Nutrition Screen (Weight Loss) Nutrition Recommendations/Plan: Continue NPO. Monitor for start of oral diet and provide ONS with meals as able. Monitor labs, weights, and plan of care. Nutrition Assessment: Chart reviewed due to positive nutrition screen for weight loss and poor intakes/appetite. Pt admitted with pain/gangrene to Left great toe. PMH includes: type 1 DM, HTN, PVD. Pt NPO and off unit x multiple attempted visits. Weight loss reported but no weight history availableper chart review. Will monitor for start of oral diet and follow-up to complete full assessment. Labs reviewed: Na 132 mmol/L, Phos 4.6 mg/dL, HgbA1c 7.4%. Malnutrition Assessment: Malnutrition Status: Insufficient data Context: Chronic Illness Findings of the 6 clinical characteristics of malnutrition: Energy Intake: Mild decrease in energy intake - Predicted h/o poor PO intakes. Weight Loss: Unable to assess - Reported weight loss but minimal/no weight history per chart review. Body Fat Loss: Unable to assess Muscle Mass Loss: Unable to assess Fluid Accumulation: No significant fluid accumulation Type Inspector Strength: Not Performed Estimated Daily Nutrient Needs: Energy (kcal): 28-32 kcal/kg = 8131-4313 kcals/day; Weight Used for Energy Requirements: Current Protein (g): 1.5 gm/kg = 75 gm pro/day; Weight Used for Protein Requirements: Admission Fluid (ml/day): 30 mL/kg = 1500 mL/day or per MD; Method Used for Fluid Requirements: ml/Kg Nutrition Related Findings: Labs/Meds reviewed. Hypoactive bowel sounds. C/o constipation. Wounds: (Gangrene to left great toe) Current Nutrition Therapies: Diet NPO Exceptions are: Sips of Water with Meds Anthropometric Measures: Height: 5' 4 (162.6 cm) Current Body Weight: 108 lb 0.4 oz (49 kg) Admission Body Weight: 108 lb 0.4 oz (49 kg) [place] Body Weight: 120 lbs; % [place] Body Weight 90 % BMI: 18.5 BMI Categories: Normal Weight (BMI 18.5-24.9) Nutrition Diagnosis: Inadequate oral intake related to (current condition; appetite?; testing) as evidenced by NPO or clear liquid status due to medical condition,poor intake prior to admission Nutrition Interventions: Food and/or Nutrient Delivery: Continue NPO (Monitor for start of oral diet and provide ONS with meals as able.) Nutrition Education/Counseling: No recommendation at this time Coordination of Nutrition Care: Continue to monitor while inpatient Goals: Meet at least 50% of estimated nutrition needs. Nutrition Monitoring and Evaluation: Behavioral-Environmental Outcomes: None Identified Food/Nutrient Intake Outcomes: Diet Advancement/Tolerance Physical Signs/Symptoms Outcomes: Biochemical Data,GI Status,Fluid Status or Edema,Hemodynamic Status,Nutrition Focused Physical Findings,Skin,Weight Discharge Planning: Too soon to determine Contact: [phone] * Farida Hilton RN - 06/28/2021 2:24 PM EDT Patient admitted, consent signed and questions answered. Patient ready for procedure. Call light toreach with side rails up 2 of 2. Bilat groin hairs clipped. Family at bedside with patient. Historyand physical complete. Insulin pump on and suspended by patient * Froilan Sanchez RN - 06/28/2021 11:39 AM EDT Ptt was drawn right after increase in dose to heparin and following Heparin bolus. Next PTT due at 1400 * Kaitlynn Holbrook MD - 06/28/2021 9:30 AM EDT Images from the original note were not included. [facility] Office: [phone] Agusto Price DO, Himanshu Maza DO, Fortino Brennan DO, Ralph Magdaleno DO, Kaitlynn Holbrook MD, Phuong Head MD, Rachid Rivas MD, Laury Villalobos MD, Shalonda Torres MD, Ishan Yap MD, Afia Kim MD, Bola Cox DO, Brandon Cuellar DO, Rekha Subramanian MD, Selam Venegas DO, MD Stephanie, Etienne Anne MD, Estuardo Gusman MD, Marce Price DO, Rufino Ambrosio MD, Vicente Michaels MD, Sandy Fox CNP, Natali Montgomery CNP, Kevin Candelaria CNP, Steff Hill CNP,Aleida Hugo, KELI, Jake Knutson, KELI, Simeon Adhikari PA-C, Licha Simms, HOLLY, Denice Donaldson, KELI, Agustina Ragland, KELI, Amy Cruz, KELI, Georgia Talavera, KIMBERLY, Ashley Ramey, HOLLY, Zohra Montalvo, KELI, Wayne, KELI, Josiane Otero, KELI [facility] IN-PATIENT SERVICE [facility] Progress Note 06/28/2021 12:28 PM Name: Khris Mcgowan Acct: [id number] Room: [address] [place] [address] IP Day: 1 Admit Date: 06/27/2021 2:59 PM PCP: SIRI JOHNSON Code Status: Full Code Subjective: C/C: Pain left great toe Interval History Status: . Continues to have pain left great toe and has a small area of gangrene Currently n.p.o. for femoropopliteal bypass surgery today Blood sugars 180, currently on insulin sliding scale Has insulin pump in place, states has DM 1 Brief History: Khris Mcgowan is a 55 y.o. Non- / non female who presents with No chief complaint on file. and is admitted to the hospital for the management of <principal problem not specified>. Khris Mcgowan is a 55 year old female transferred from vascular surgeon office for direct admissionfor pain and gangrene to the left great toe. She states that she has been seen over the past several months on several occasions for pain and vascular disease to the left leg. She was admitted initially at [facility] and had a left femoral stent placed in May. Following discharge she was found to have clotted the stent and was re-admitted. She continued to have pain after discharge and had her sister drive her to [facility] ED where she had a vascular consult and established care with vascular MD. She went to office appointment today where she states they were unable to find pulses to her left foot. She was transferred for vascular intervention. She states that she has been unable to walk on the foot and pain has been unbearable requiring narcotic pain relief. In addition she has DM1and HTN. She states she is compliant with home medications and has an insulin pump for DM management. Review of Systems: Constitutional: negative for chills, fevers, sweats Respiratory: negative for cough, dyspnea on exertion, shortness of breath, wheezing Cardiovascular: negative for chest pain, chest pressure/discomfort, lower extremity edema, palpitations Gastrointestinal: negative for abdominal pain, constipation, diarrhea, nausea, vomiting Neurological: negative for dizziness, headache + Pain and small area of gangrene left great toe Medications: Allergies: Allergies Allergen Reactions Latex Rash Demerol Hcl [Meperidine] Nausea And Vomiting Current Meds: Scheduled Meds: insulin lispro 0-6 Units SubCUTAneous TID WC insulin lispro 0-3 Units SubCUTAneous Nightly amLODIPine 10 mg Oral Daily buPROPion 150 mg Oral QAM metoprolol tartrate 12.5 mg Oral BID sodium chloride flush 5-40 mL IntraVENous 2 times per day Continuous Infusions: dextrose sodium chloride heparin (PORCINE) Infusion 22 Units/kg/hr (06/28/21 0854) PRN Meds: glucose, dextrose, glucagon (rDNA), dextrose, albuterol, sodium chloride flush, sodium chloride, ondansetron OR ondansetron, acetaminophen OR acetaminophen, polyethylene glycol, heparin (porcine), heparin (porcine), morphine Data: Past Medical History: has a past medical history of HTN (hypertension) and Type 1 diabetes mellitus(HCC). Social History: reports that she quit smoking about 3 months ago. She quit after 25.00 years of use. She has never used smokeless tobacco. She reports current alcohol use. She reports that she does not use drugs. Family History: Family History Problem Relation Age of Onset Other Mother Other Father Diabetes Sister Vitals: BP 90/62 Pulse 60 Temp 98.1 F (36.7 C) (Oral) Resp 16 Wt 108 lb 0.4 oz (49 kg) SpO2 97% Temp (24hrs), Av F (36.7 C), Min:97.7 F (36.5 C), Max:98.1 F (36.7 C) Recent Labs 06/28/21 0125 06/28/21 0128 06/28/21 0736 06/28/21 1153 POCGLU 167* 77 180* 153* I/O (24Hr): No intake or output data in the 24 hours ending 06/28/21 1228 Labs: Hematology: Recent Labs 06/27/21 1804 06/27/21 1810 06/28/21 0816 WBC -- 6.7 6.2 RBC -- 4.11 3.76* HGB -- 13.4 12.1 HCT -- 38.9 37.5 MCV -- 94.6 99.7 MCH -- 32.6 32.2 MCHC -- 34.4 32.3 RDW -- 13.2 13.8 PLT -- 399 355 MPV -- 9.7 9.8 INR 1.2 -- -- Chemistry: Recent Labs 06/27/21 1810 06/28/21 0816 NA 138 132* K 3.9 4.1 CL 101 102 CO2 24 21 GLUCOSE 133* 147* BUN 6 10 CREATININE 0.77 0.90 MG -- 1.9 ANIONGAP 13 9 LABGLOM >60 >60 GFRAA >60 >60 CALCIUM 9.4 8.8 PHOS -- 4.6* Recent Labs 06/28/21 0125 06/28/21 0128 06/28/21 0736 06/28/21 0816 06/28/21 1153 LABALBU -- -- -- 3.3* -- POCGLU 167* 77 180* -- 153* ABG:No results found for: POCPH, PHART, PH, POCPCO2, QTT7XWX, PCO2, POCPO2, PO2ART, PO2, POCHCO3, DBG3SOJ, HCO3, NBEA, PBEA, BEART, BE, THGBART, THB, KAC4PPA, KHSN4STH, [id number], O2SAT, FIO2 No results found for: SPECIAL No results found for: CULTURE Radiology: XR CHEST (SINGLE VIEW FRONTAL) Result Date: 06/27/2021 No evidence of acute cardiopulmonary disease. CTA ABDOMINAL AORTA W BILAT RUNOFF W CONTRAST Result Date: 06/27/2021 1. Occlusion of the distal left SFA at the level of the stent. The popliteal artery is reconstituted and patent 3 vessel runoff is demonstrated. 2. Patent right lower extremity runoff. Scattered atheromatous plaque as above. 3. No aneurysm, dissection or acute aortic abnormality. 4. Diverticulosis. Physical Examination: General appearance: alert, cooperative and mild distress due to pain left great toe Mental Status: oriented to person, place and time and normal affect Lungs: clear to auscultation bilaterally, normal effort Heart: regular rate and rhythm, no murmur Abdomen: soft, nontender, nondistended, normal bowel sounds, no masses, hepatomegaly, splenomegaly Extremities: + Small area of gangrene and redness around left great toe skin: no gross lesions, rashes, induration Assessment: Hospital Problems Last Modified POA Peripheral arterial disease (HCC) 06/27/2021 Yes Gangrene (HCC) 06/27/2021 Yes Primary hypertension 06/27/2021 Yes Type 1 diabetes mellitus (HCC) 06/27/2021 Yes Plan: 1. Vascular planning femoropopliteal bypass today 2. Manage DM: Patient may continue to use own insulin pump. Carb controlled diet with carb countingfor dosing. BS ac/hs. 3. Manage HTN. Continue home meds. 4. Pain control 5. Trend kidney function. Replete electrolytes as needed. 6. DVT prophylaxis: Currently already on heparin drip 7. GI prophylaxis Kaitlynn Holbrook MD 06/28/2021 12:28 PM * Mark Jha, - 06/28/2021 7:32 AM EDT Vascular Surgery Progress Note 06/28/2021 7:32 AM Subjective: Admit Date: 06/27/2021 PCP: SIRI JOHNSON Interval History: Seen and examined at bedside this AM, no acute events overnight. Continues to endorse left foot andtoe pain. Remains on hep gtt. NPO for procedure. Diet: Diet NPO Exceptions are: Sips of Water with Meds Medications: Scheduled Meds: amLODIPine 10 mg Oral Daily buPROPion 150 mg Oral QAM metoprolol tartrate 12.5 mg Oral BID sodium chloride flush 5-40 mL IntraVENous 2 times per day Continuous Infusions: dextrose sodium chloride heparin (PORCINE) Infusion 20 Units/kg/hr (06/28/21 0029) Labs: CBC: Recent Labs 06/27/21 1810 WBC 6.7 HGB 13.4 PLT 399 BMP: Recent Labs 06/27/21 1810 NA 138 K 3.9 CL 101 CO2 24 BUN 6 CREATININE 0.77 GLUCOSE 133* Hepatic: No results for input(s): AST, ALT, ALB, BILITOT, ALKPHOS in the last 72 hours. Troponin: Invalid input(s): TROPONIN BNP: No results for input(s): BNP in the last 72 hours. Lipids: No results for input(s): CHOL, HDL in the last 72 hours. Invalid input(s): LDLCALCU INR: Recent Labs 06/27/21 1804 INR 1.2 Objective: Vitals: BP 123/71 Pulse 66 Temp 97.7 F (36.5 C) (Oral) Resp 18 Wt 108 lb 0.4 oz (49 kg) SpO2 96% CONSTITUTIONAL: Alert and oriented, no acute distress HEAD: normocephalic, atraumatic EYES: Pupils equal and reactive to light, Extraocular muscles intact, sclera non icteric ENT: Mucus membranes moist, No otorrhea, no rhinorrhea NECK: supple, symmetrical, trachea midline LUNGS: Good air movement bilaterally, unlabored respirations CARDIOVASCULAR: Regular rate and rhythm ABDOMEN: soft, non tender, non distended, no rebound or guarding : Deferred Rectal: Deferredd MUSCULOSKELETAL: Equal strength bilaterally, normal muscle tone, severe pain with palpation of lefttoe SKIN: Dark discoloration to the tip of her left toe Ext: Palpable signals on right DP/PT and left DP, Dopplerable signals on left PT NEUROLOGIC: Cranial nerves 2-12 grossly intact, no focal deficits PSYCH: affect appropriate Assessment: 1. Patient is a 55-year-old female with peripheral artery disease and gangrene of left great toe 1. Patient Active Problem List: Peripheral arterial disease (HCC) Gangrene (HCC) Primary hypertension Type 1 diabetes mellitus (HCC) Plan: 1. Cont NPO 2. CTA reviewed 3. Cont hep gtt 4. Plan for angio this afternoon Associated attestation - Denise Malcolm MD - 06/30/2021 5:13 PM EDT Angio today. Based on CTA of the lower extremities, will try to revascularize without a bypass * Froilan Louis RN - 06/28/2021 1:12 AM EDT Patient's own insulin pump was showing blood sugar at 65. Patient's blood sugar was then checked with hospital glucometer; and it showed 167. Patient had checked her blood sugar with another glucometer owned by the patient ( blood sugar 85). We rechecked the blood sugar and was 77. ...[place] juice was given to patient. Notified LONG Sexton. Hypoglycemia protocol orders given. documented in this [facility] Phone: [phone] 697-672204-15-2022 Hospital Discharge instructions* Instructions* Vianey Kaplan DPM - 07/01/2021 -Apply betadine to left great toe once daily and cover with non-restrictive adhesive bandage or drycovering. -You may apply weight as tolerated to the left foot in a surgical shoe. * Attachments The following attachments cannot be sent through Care Everywhere. * povidone iodine topical (Gambian) documented in this [facility] Phone: [phone] NotePROCEDURE: XR TOES LT MIN 2 V HISTORY: pain ; first toe pain, toes occasionally turn blue, wound on total COMPARISON: None. FINDINGS: BONES:No fracture, acute abnormality, or significant arthropathy. SOFT TISSUES:No visible soft tissue swelling. EFFUSION:None visible. OTHER: Negative. IMPRESSION: 1. No suspicious bone abnormality. 2. No appreciable soft tissue abnormality. Electronically authenticated by: OLIVA BABB Date: 2021-06-15 12:06[facility]03-23-2022 Evaluation note* Encounter Date Diagnosis Assessment Notes Treatment Notes Treatment Clinical Notes May, PAD (peripheral artery disease) (ICD-10 - I73.9) This patient had a thromboembolic event to the left great toe. The source was the left superficial femoral artery. This was confirmed with a CT angiogram done at an outside facility. The patient successfully underwent left SFA angioplasty and stenting by myself on 05/25/2021. The patient currently has a normally palpable left dorsalis pedis pulse and her ABIs 0.91 in the left lower extremity. I have nothing further to offer this patient at this time. I suggested she follow-up with a scrap metal burner and see me back in 3 months with ABIs. I congratulated her on quitting smoking. She is still extremelyupset and wants answers. I tried to be very patient with her today and give her answers to her questions. She wanted to have been treated sooner. I believe I follow the standard of care in this patient. Our nurse practitioner, Kanika was in the room with us during this visit today. 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 30 years of smoking did not help. Patient states that she quit 5 weeks ago. I would expect to see some improvement with smoking cessation. In the meantime the patient needs to exercise and take aspirin daily for its antiplatelet activity. This is extremely important. The patient states that she cannot tolerate a statin. There is no surgical indication at this time. This is a medical management disease process. I will see her back in 8 weeks to reevaluate how she is doing. She may need to try a calcium channel dominic for vasodilatation. We may consider trying nifedipine to regroup to reduce the fr equency duration and severity of her attacks. In the meantime I suggested she continue her efforts to quit smoking and keep her feet warm and dry. [employer] Other Evaluation note* Diagnosis Peripheral arterial disease (HCC)- Primary Unspecified disorders of arteries and arterioles Gangrene (HCC) Gangrene Primary hypertension Unspecified essential hypertension Type 1 diabetes mellitus (HCC) Type I (juvenile type) diabetes mellitus without mention of complication, not stated as uncontrolled documented in this encounter [email or web address] Phone: evaluation noteNo InformationNort [employer] Other Evaluation note* Diagnosis Chronic eczematous otitis externa of both ears- Primary Referred otalgia of both ears TMJ dysfunction Temporomandibular joint disorders, unspecified Environmental and seasonal allergies [facility] this [facility] noteNo assessment information availableC[facility] Work Phone: evaluation note* Diagnosis Syncope, unspecified syncope type- Primary Cognitive decline [facility] Personal history of tobacco use Personal history of tobacco use, presenting hazards to health documented [facility] this encounter [facility]* Diagnosis Benign essential hypertension Essential hypertension, benign Hyperlipidemia, unspecified hyperlipidemia type Statin intolerance PVD (peripheral vascular disease) ([facility]/HCC) Unspecified peripheral vascular disease Intermittent claudication ([facility]) Unspecified peripheral vascular disease Diabetes mellitus of other type without complication, unspecified whether retirement insulin use ([facility]) Former smoker Personal history of tobacco use, presenting hazards to health documented in this encounter [facility] Work Phone: Evaluation note* Diagnosis Onset Date Resolution Status Acute UTI (urinary tract infection) acuteOral thrushacute [facility] Work Phone: Evaluation note* Diagnosis Screening mammogram for breast cancer Esophageal dysphagia Dysphagia, pharyngoesophageal phase History of reconstructive repair of rectocele GERD (gastroesophageal reflux disease) Esophageal reflux Esophageal dysphagia Dysphagia, pharyngoesophageal phase History of reconstructive repair of rectocele GERD (gastroesophageal reflux disease) Esophageal reflux documented in [facility] encounter [facility] aka-[facility] networksEvaluation note* Diagnosis Benign essential hypertension Essential hypertension, benign Hyperlipidemia, unspecified hyperlipidemia type Statin intolerance PVD (peripheral vascular disease) ([facility]) Unspecified peripheral vascular disease Diabetes mellitus of other type without complication, unspecified whether buttermaker helper insulin use ([facility]) Former smoker Personal history of tobacco use, presenting hazards to health BMI 21.0-21.9, adult documented in this encounter [facility] Work Phone: Evaluation note* Diagnosis Esophageal dysphagia Dysphagia, pharyngoesophageal phase History of reconstructive repair of rectocele GERD (gastroesophageal reflux disease) Esophageal reflux documented in this encounter [facility] aka-[facility] networksEvaluation note* Diagnosis Critical limb ischemia with history of revascularization of same extremity ([facility])- Primary Bilateral carotid artery stenosis Occlusion and stenosis of carotid artery without mention of cerebral infarction [facility]* Diagnosis Critical limb ischemia with history of revascularization of same extremity ([facility]) documented [facility]* Diagnosis Peripheral arterial disease ([facility]-HCC)- Primary Unspecified peripheral vascular disease Critical limb ischemia with history of revascularization of same extremity ([facility]) 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, left leg ([facility]) [facility]* Diagnosis Critical limb ischemia with history of revascularization of same extremity ([facility]) documented [facility]* Diagnosis Essential (primary) hypertension Unspecified essential hypertension Mixed hyperlipidemia PVD (peripheral vascular disease) Unspecified peripheral vascular disease Type 2 diabetes mellitus with other circulatory complication, with long-term current use of insulin Statin intolerance BMI 21.0-21.9, adult Former smoker Personal history of tobacco use, presenting hazards to health documented in this encounter [facility] Work Phone: Evaluation note* Diagnosis Personal history of tobacco use Personal history of tobacco use, presenting hazards to health documented in this [facility]* Diagnosis Peripheral arterial disease- Primary Unspecified peripheral vascular disease Type 1 diabetes mellitus without complication Type I (juvenile type) diabetes mellitus without mention of complication, not stated as uncontrolled [facility] Narrative - Reported* Type Description Date Medical History DM type 1 Medical Historypituitary microadenomaMedical HistoryosteopeniaMedical History hypertensionMedical HistoryASHDSurgical Historyhysterectomy [id number] Historyrectocele,enterocel, coccyx removedSurgical Historyrectocele reair, bladder suspension [employer] Other History general Narrative - Reported* Type Description Date Medical History DM type 1 Medical Historypituitary microadenomaMedical HistoryosteopeniaMedical History hypertensionMedical HistoryASHDSurgical Historyhysterectomy [id number] Historyrectocele,enterocel, coccyx removedSurgical Historyrectocele reair, bladder suspensionSurgical Historystent placement left [id number] [employer] Other Hospital Discharge instructions* Attachments The following attachments cannot be sent through Care Everywhere. * EGD (Upper Endoscopy): Post-op (Gambian) * Acid-Reducing Medicines: General Info (Gambian) documented in this encounterBon Ariana Memorial HospitalInstructionsNot on file documented in this encounterProRegency Hospital Company SystemInstructionsNot on file documented in this encounterProLima Memorial HospitalInstructionsNot on file documented in this encounterProRegency Hospital Company SystemInstructionsNot on file documented in this encounterProRegency Hospital Company SystemInstructionsNot on file documented in this encounterProRegency Hospital Company SystemReason for referral (narrative)* Consultation (Routine) - AuthorizedSpecialtyDiagnoses / Procedures Referred By ContactReferred To ContactCardiology Diagnoses Benign essential hypertension Procedures Follow Up In Cardiology Rj Rollins MD [address] [place] [address] [address], [address] [address] Rj Rollins MD [address] [place] [address] 2, [address] [address] Referral IDStatusReasonStart DateExpiration DateVisits RequestedVisits [id number]/11/20244/ [facility] Work Phone: Reason for visit Narrative* Auth/CertSpecialty Diagnoses / ProceduresReferred By ContactReferred To Contact Diagnoses Gangrene (HCC) Peripheral arterial disease (HCC) ASO of left leg with gangrene [facility] [place] [id number] [facility] [address] [place] [address] Referral IDStatusReasonStart DateExpiration DateVisits RequestedVisits [id number] [facility] [employer] Phone: reason for visit Narrative* Imaging (Routine) - Closed SpecialtyDiagnoses / ProceduresReferred By ContactReferred To ContactRadiology Diagnoses Personal history of tobacco use Procedures CT Lung Screen (Initial/Annual/Baseline) Siri Johnson DO [address] [place] [address] Phone: tel: fax: Referral IDStatusReasonStart DateExpiration DateVisits RequestedVisits [id number]/15/20259/ [facility] Summary Purpose Family History Unknown Family Member Name Dates Details Family history of myocardial infarction: Sister, Mother(V17.3, Z82.49) Status:ActiveHistory of PTCA: Mother(V45.82, Z98.61) Status:Active Unknown Family Member Name Dates Details Family history of myocardial infarction: Sister, Mother(V17.3, Z82.49) Status:ActiveHistory of PTCA: Mother(V45.82, Z98.61) Status:Active Unknown Family Member Name Dates Details Family history of myocardial infarction: Sister, Mother(V17.3, Z82.49) Status:ActiveHistory of PTCA: Mother(V45.82, Z98.61) Status:Active Relationship Condition Age at Onset Recorded Date/T keshawn Not Specified Coronary artery disease Unknown Unknown Family Member Name Dates Details Family history of myocardial infarction: Sister, Mother(V17.3, Z82.49) Status:ActiveHistory of PTCA: Mother(V45.82, Z98.61) Status:Active Relationship Condition Age at Onset Recorded Date/T keshawn Not Specified Coronary artery disease Unknown fatherDeceasedUnknownfamily memberDeceasedUnknownNot SpecifiedDeceasedUnknown Advance Directives TypeDate RecordedPatient RepresentativeExplanationACP-Advance Directive07/05/2021 11:42 AMDate ActivatedDate InactivatedComments06/27/2021 3:49 PM07/04/2021 6:12 PMNameRelationshipHealthcare Agent RelationshipCommunicationAmber [facility] Primary Decision Maker* Code StatusDate ActivatedDate InactivatedCommentsFull Code06/27/2021 3:49 PMName RelationshipHealthcare Agent RelationshipCommunicationAmber [facility]Primary Decision Maker* Advance Directive Response Recorded Date/ Time Advance Directives No January 24, 2019 10:54am Code StatusDate ActivatedDate InactivatedCommentsFull Code06/27/2021 3:49 PM 07/04/2021 6:12 PMNameRelationshipHealthcare Agent RelationshipCommunicationAmber BeckWashington [facility] HospitalPrimary Decision Maker* Date ActivatedDate KqloebihhpxRxrvyxdh78/6/2024 10:55 AMDate ActivatedDate InactivatedComments06/27/2021 3:49 PM07/04/2021 6:12 PMNameRelationshipHealthcare Agent RelationshipCommunicationAmber BeckWashington County [facility]erculosis HospitalPrimary Decision Maker* TypeDate RecordedPatient RepresentativeExplanationLiving Will07/15/2021 6:42 AM living will/poaCode StatusDate ActivatedDate InactivatedCommentsFull Code 07/09/2021 10:08 PM07/20/2021 4:19 PMTypeDate RecordedPatient Claim Approver ExplanationLiving Will07/15/2021 6:42 AMliving will/poaCode StatusDate Activated Date InactivatedCommentsFull Code07/09/2021 10:08 PM07/20/2021 4:19 PMDate ActivatedDate InactivatedComments07/09/2021 10:08 PM07/20/2021 4:19 PMDate ActivatedDate InactivatedComments07/09/2021 10:08 PM07/20/2021 4:19 PMDate ActivatedDate GmckdbbedayArudugew80/6/2024 10:55 AM02/22/2024 3:28 PMName RelationshipHealthcare Agent RelationshipCommunicationAmber BeckWashington County Tuberculosis HospitalPratrium health wake [facility] centerry Decision Maker* Reason for Referral SpecialtyDiagnoses / ProceduresReferred By ContactReferred To ContactPain Management Diagnoses Peripheral arterial disease (HCC) Gangrene (HCC) Kaitlynn Holbrook MD [address] [place] [address] Referral IDStatusReasonStart DateExpiration DateVisits RequestedVisits [id number] Specialty Services Required 4/18/829968/15/574885SrpgqvctzAwucdefef / ProceduresReferred By ContactReferred To ContactRadiology Diagnoses Personal history of tobacco use Z87.891 (ICD-10-CM) - Personal history of tobacco use Procedures CT Lung Screen (Initial/Annual/Baseline) CHG COMPUTED TOMOGRAPHY THORAX LW DOSE LNG CA SCR C- [id number] - CHG COMPUTED TOMOGRAPHY THORAX LW DOSE LNG CA SCR C- Siri Johnson, [address] [place] [address] Referral IDStatusReasonStart DateExpiration DateVisits RequestedVisits [id number]/3/20245/[id number] / Procedures Referred By ContactReferred To Contact Diagnoses Bilateral carotid artery stenosis Procedures Vas carotid duplex bilateral Princess Pizano MD [address] [place] [address] Referral IDStatusReasonStart DateExpiration DateVisits RequestedVisits [id number] Review/[id number] / ProceduresReferred By ContactReferred To Contact Diagnoses Critical limb ischemia with history of revascularization of same extremity ([facility]) Procedures Vas art duplex lwr single left Princess Pizano MD [address] [place] [address] Phone: Referral IDStatusReasonStart DateExpiration DateVisits RequestedVisits [id number] Review/[id number] / ProceduresReferred By ContactReferred To Contact Diagnoses Critical limb ischemia with history of revascularization of same extremity ([facility]) Procedures Vas art doppler lwr bilat mult lev/PVR Princess Pizano MD [address] [place] [address] Phone: Referral IDStatusReasonStart DateExpiration DateVisits RequestedVisits [id number] Review/ Chief Complaint * OVERDUE VASCULAR SUGERY 07/08. * Patient is in the office for follow-up for severe PAD. She was last seen by myself in 2017. In 2019she underwent cardiac catheterization by Dr. Maza demonstrating normal coronary arteries. The patient in the last several months have been through major interventions for severe PAD involving the left lower extremity, initially she had stenting done at [facility] and subsequently with failure of the procedure she underwent surgical revascularization at [facility] in [place] with much better results. She is to have claudications that limit her physical activities to some extent but no indicationof threatening limbs at this time. She is currently on dual antiplatelet therapy and cilostazol. She quit smoking in 2015 but she has longstanding diabetes. She denies any chest pain orthopnea PND orlower extremity edema. Her pulses are diminished bilaterally in the lower extremities but the carotid sounds are normal cardiac sounds are normal as well. The patient is not on statin therapy becauseof intolerance. In the past she was taking Repatha but then it was not covered any longer. * ASSESSMENT AND PLAN: * 1. Hypertension, currently under control medical therapy which will be left unchanged * 2. Hyperlipidemia. Intolerant to statin. Will order Praluent 75 mg twice monthly hoping for full coverage * 3. Diabetes, managed by , seems to be getting under control. * 4. Severe PAD mostly involving the left lower extremity status post surgical revascularization 2021followed by vascular surgery in [facility] in [place]. Aggressive risk factor modification was emphasized. No guidelines suggested adding Xarelto 2.5 mg twice daily to baby aspirin. I propose that to the patient and suggested that he stop the Plavix and the cilostazol for now. * Emphasized the need for aggressive risk factor modification. * Rj Rollins MD, FACC * KHRIS MCGOWAN is being seen for a 6 month follow-up of. * Patient is in the office for follow-up for the problems noted below. Since her last visit last viki has done very well. She quit smoking and her LDL cholesterol is down to 56 mg/dL when she is onPraluent. Her PAD is stable with no recent event and continue to follow with vascular surgery in [place]. Her weight increased significant from last visit and her BMI is up to 23 kg per metered squarewhich is on target. Her most recent lab data were reviewed by myself and shared with the patient. Her examination was unremarkable today. Her diabetes seems to be under control. * ASSESSMENT AND PLAN: * 1. Hypertension, currently under control medical therapy which will be left unchanged * 2. Hyperlipidemia. Intolerant to statin. Will order Praluent 75 mg twice monthly, LDL cholesterol recently measured 56 mg/dL which is on target. * 3. Diabetes, managed by , under control. * 4. Severe PAD mostly involving the left lower extremity status post surgical revascularization 2021followed by vascular surgery in [facility] in [place]. Aggressive risk factor modification was emphasized. Currently on Xarelto vascular dose. * 5. History of tobacco abuse that was extensive in the past, currently she is reformed. * Emphasized the need for aggressive risk factor modification. * Rj Rollins MD, [facility] Chief Complaint and Reason for Visit Chief Complaint D35.2;R41.3;F03.90;G 62.9;R79.89;E78.5 Chief Complaint Dysuria, white film on tongue, mouth sore Chief Complaint Dysuria, white film on tongue, mouth sore DysuriaReason for VisitAcute UTI (urinary tract infection) Oral thrush Additional Source Comments INFORMATION SOURCE (unrecogn ized section and content) DATE CREATED AUTHOR 02/24/2018 [facility] DATE CREATED AUTHOR AUTHOR'S ORGANIZ ATION 07/11/[address] [facility] DATE CREATED AUTHOR AUTHOR'S ORGANIZ ATION 08/22/2021 [facility] DATE CREATED AUTHOR AUTHOR'S ORGANIZ ATION 11/11/2021 [facility] [employer] DATE CREATED AUTHOR AUTHOR'S ORGANIZ ATION 05/11/2022 [facility] DATE CREATED AUTHOR AUTHOR'S ORGANIZ ATION 09/13/2022 [facility] DATE CREATED AUTHOR AUTHOR'S ORGANIZ ATION 09/13/2022 [employer] DATE CREATED AUTHOR AUTHOR'S ORGANIZ ATION 09/13/2022 [facility] DATE CREATED AUTHOR AUTHOR'S ORGANIZ ATION 09/11/2023 [facility] DATE CREATED AUTHOR AUTHOR'S ORGANIZ ATION 09/01/2024 [facility] DATE CREATED AUTHOR AUTHOR'S ORGANIZ ATION 09/08/2024 [facility] DATE CREATED AUTHOR AUTHOR'S ORGANIZ ATION 09/11/2024 [facility] DATE CREATED AUTHOR AUTHOR'S ORGANIZ ATION 10/04/2024 [facility] DATE CREATED AUTHOR AUTHOR'S ORGANIZ ATION 12/02/2024 [facility] DATE CREATED AUTHOR AUTHOR'S ORGANIZ ATION 01/08/2025 [facility] Ordered Prescriptions (unrec ognized section and content) PrescriptionSigDispensedRefillsStart DateEnd Date cefUROXime (CEFTIN) 250 MG tablet Take 1 tablet by mouth every 12 hours for 7 days 14 tablet / gabapentin (NEURONTIN) 600 MG tablet Take 1 tablet by mouth every 8 hours for 21 doses. 21 tablet / oxyCODONE (OXYCONTIN) 20 MG extended release tablet Indications:Peripheral arterial disease (HCC),Gangrene (HCC)Take 1 tablet by mouth every 12 hours for 6 doses. 6 each / methocarbamol (ROBAXIN) 750 MG tablet Take 1 tablet by mouth every 6 hours for 10 days 40 tablet / oxyCODONE (ROXICODONE) 5 MG immediate release tablet Indications:Peripheral arterial disease (HCC),Gangrene (HCC)Take 1 tablet by mouth every 4 hours as needed for Pain for up to 10 doses. 10 tablet cilostazol (PLETAL) 100 MG tablet Take 1 tablet by mouth 2 times daily 60 tablet NIFEdipine (PROCARDIA XL) 30 MG extended release tablet Take 1 tablet by mouth daily 30 tablet apixaban (ELIQUIS) 5 MG TABS tablet Take 1 tablet by mouth 2 times daily 60 tablet apixaban (ELIQUIS) 5 MG TABS tablet Take 2 tablets by mouth 2 times daily for 10 doses 10 tablet nitroglycerin (NITRO-BID) 2 % ointment Place 0.5 inches onto the skin every 6 hours 1 each aspirin 81 MG chewable tablet Take 1 tablet by mouth daily 30 tablet gabapentin (NEURONTIN) 300 MG capsule Indications:Peripheral arterial disease (HCC),Gangrene (HCC)Take 1 capsule by mouth every 8 hours for 7 days. 21 capsule /rescriptionSigDispensedRefillsStart DateEnd Date famotidine (PEPCID) 20 MG tablet Take 1 tablet by mouth 2 times daily 60 tablet Scheduled Active and Recently Administ ered Medications (unrecognized section and content) Medication Order// apixaban (ELIQUIS) tablet 10 mg(Linked Group 1) 10 mg, Oral, 2 TIMES DAILY, 14 doses, First dose on Sun06/30/21 at 1400, Last dose on Sun07/07/21 at 0600, Indication of Use: DVT/PE Proph (extended), ANTICOAGULANT * 0812 (Given - Provider: Odalys Rick RN) * 1823 (Given - Provider: Odalys Rick RN) * 0640 (Given - Provider: Varsha Cobos RN) * 1750 (Given - Provider: Jody Poole RN) * 0604 (Given - Provider: Meg Escobar RN) * 1800 (Due - Provider: Alize Hernandez [facility]) apixaban (ELIQUIS) tablet 5 mg(Linked Group 1) 5 mg, Oral, 2 TIMES DAILY, First dose on Sun07/07/21 at 1800, Until Discontinued, Indication of Use: DVT/PE Proph (extended), ANTICOAGULANT aspirin chewable tablet 81 mg 81 mg, Oral, DAILY, First dose on Sun06/28/21 at 1915, Until Discontinued * 0813 (Given - Provider: Odalys Rick RN) * 0845 (Given - Provider: Jody Poole RN) * 0840 (Given - Provider: Hannah Nieto) buPROPion (WELLBUTRIN XL) extended release tablet 150 mg 150 mg, Oral, EVERY MORNING, First dose on Sun06/28/21 at 0900, Until Discontinued, Do not crush orbreak. * 0813 (Given - Provider: Odalys Rick RN) * 0844 (Given - Provider: Jody Poole RN) * 0840 (Given - Provider: Hannah Nieto) cefUROXime (CEFTIN) tablet 250 mg 250 mg, Oral, EVERY 12 HOURS SCHEDULED (2 times per day), First dose on Sun07/04/21 at 1045, Until Discontinued, Antimicrobial Indications: Skin and Soft Tissue Infection, Do not crush or break. * 1027 (Given - Provider: Hannah Nieto) * 2100 (Due) cilostazol (PLETAL) tablet 100 mg 100 mg, Oral, 2 TIMES DAILY, First dose (after last modification) on Sun06/28/21 at 1915, Until Discontinued, give 30mins before or 2 hours after meals * 0813 (Given - Provider: Odalys Rick RN) * 2116 (Given - Provider: Stacy Mendoza LPN) * 0844 (Given - Provider: Jody Poole, GAY) * 2128 (Given - Provider: Meg Escobar RN) * 0840 (Given - Provider: Hannah Nieto) * 2100 (Due) gabapentin (NEURONTIN) capsule 300 mg (CANCELED) 300 mg, Oral, EVERY 8 HOURS SCHEDULED (3 times per day), First dose (after last modification) on Sun06/28/21 at 1915, Until Discontinued * 0812 (Given - Provider: Odalys Rick RN) * 1331 (Given - Provider: Odalys Rick RN) * 2116 (Given - Provider: Stacy Mendoza LPN) * 0600 (Not Given - Provider: Jody Poole RN - Reason: Other) * 1334 (Given - Provider: Jody Poole, GAY) * 2128 (Given - Provider: Meg Escobar, GAY) * 0604 (Given - Provider: Meg Escobar, GAY) gabapentin (NEURONTIN) tablet 600 mg 600 mg, Oral, EVERY 8 HOURS SCHEDULED (3 times per day), First dose (after last modification) on Sun07/04/21 at 1400, Until Discontinued * 1400 (Given - Provider: Hannah Nieto) * 2200 (Due) HYDROmorphone (DILAUDID) injection 0.5 mg (COMPLETED) HYDROmorphone (DILAUDID) 1.5mg IV is equivalent to morphine 10mg IV, 0.5 mg, IntraVENous, ONCE, 1 dose, On Sun07/03/21 at 2200, If oral and IV narcotics ordered, use oral first and only use IV if oral is ineffective or cannot take oral. Do Not give oral and IV within 1 hour of each other unless specifically ordered. * 0011 (Given - Provider: Meg Escobar RN) HYDROmorphone (DILAUDID) injection 1 mg (COMPLETED) HYDROmorphone (DILAUDID) 1.5mg IV is equivalent to morphine 10mg IV, 1 mg, IntraVENous, ONCE, 1 dose, On 07/04/21 at 1030, If oral and IV narcotics ordered, use oral first and only use IV if oral is ineffective or cannot take oral. Do Not give oral and IV within 1 hour of each other unless specifically ordered. * 0952 (Given - Provider: Hannah Nieto - Comment: give per dr holbrook) insulin glargine (LANTUS) injection vial 15 Units (COMPLETED) 15 Units, SubCUTAneous, ONCE, 1 dose, On 07/02/21 at 0945 * 0930 (Given - Provider: Odalys Rick RN) insulin lispro (HUMALOG) injection vial 0-18 Units 0-18 Units, SubCUTAneous, 3 TIMES DAILY WITH MEALS, First dose on Chanel 06/30/21 at 0845, Until Discontinued, High Dose Corrective Algorithm Glucose: Dose: 70- 139 No Insulin 140-199 3 Units 200-249 6 Units 250-299 9 Units 300-349 12 Units 350-400 15 Units Over 400 18 Units * 0931 (Given - Provider: Odalys Rick RN - Comment: 221) * 1104 (Not Given - Provider: Odalys Rick RN - Reason: Other - Comment: pt has own insulin pump on) * 1610 (Not Given - Provider: Odalys Rick RN - Reason: Other) * 0906 (Not Given - Provider: Jody Poole RN - Reason: Other - Comment: pt has insulin pump & administered insulin themself) * 1229 (Not Given - Provider: Jody Poole RN - Reason: Other - Comment: insulin given by pt per insulin pump) * 1755 (Not Given - Provider: Jody Poole RN - Reason: Other - Comment: pt has insulin pump-administered insulin per self) * 0733 (Not Given - Provider: Odalys Rick RN - Reason: Other) * 1214 (Not Given - Provider: Hannah Nieto - Reason: Other - Comment: pt self administer) * 1700 (Due) insulin lispro (HUMALOG) injection vial 0-9 Units 0-9 Units, SubCUTAneous, NIGHTLY, First dose on Chanel 06/30/21 at 2100, Until Discontinued, If continuous tube feedings/TPN/NPO, give correction dose based on result, no reduction in dose. If eating or bolus tube feeding: High Dose Corrective Algorithm Glucose: Dose: 70-139 No Insulin 140-199 2 Units 200-249 3 Units 250-299 5 Units 300-349 6 Units 350-400 7 Units Over 400 9 Units * 2212 (Not Given - Provider: Stacy Mendoza LPN - Reason: Other - Comment: pt has own insulin pumpon) * 2100 (Not Given - Provider: Meg Escobar RN - Reason: Other - Comment: Pt administers insulin herself through pump) * 2100 (Due) insulin lispro (HUMALOG) injection vial 5 Units (COMPLETED) 5 Units, SubCUTAneous, ONCE, 1 dose, On 07/02/21 at 0430 * 0430 (Given - Provider: Varsha Cobos RN) methocarbamol (ROBAXIN) tablet 750 mg 750 mg, Oral, EVERY 6 HOURS, First dose on 07/04/21 at 0130, Until Discontinued * 0156 (Given - Provider: Meg Escobar RN) * 0844 (Given - Provider: Hannah Nieto) * 1354 (Given - Provider: Hannah Nieto) * 1930 (Due) metoprolol tartrate (LOPRESSOR) tablet 12.5 mg 12.5 mg, Oral, 2 TIMES DAILY, First dose on Sun06/27/21 at 2100, Until Discontinued, Hold for SBP < 100 or HR < 50 * 0813 (Given - Provider: Odalys Rick RN) * 2117 (Given - Provider: Stacy Mendoza LPN) * 0908 (Held - Provider: Jody Poole RN - Reason: Order parameters not met) * 2128 (Given - Provider: Meg Escobar RN) * 0840 (Given - Provider: Hannah Nieto) * 2100 (Due) NIFEdipine (PROCARDIA XL) extended release tablet 30 mg 30 mg, Oral, DAILY, First dose on Sun06/28/21 at 1745, Until Discontinued, Do not crush or break. * 0813 (Given - Provider: Odalys Rick RN) * 0908 (Given - Provider: Jody Poole, GAY) * 0840 (Given - Provider: Hannah Nieto) nitroglycerin (NITRO-BID) 2 % ointment 0.5 inch 0.5 inch, Topical, EVERY 6 HOURS SCHEDULED (4 times per day), First dose on Sun06/28/21 at 1800, Until Discontinued, Apply to left great toe * 0812 (Not Given - Provider: Odalys Rick RN - Reason: Patient/family refused - Comment: great toe) * 1105 (Given - Provider: Odalys Rick RN - Comment: L great toe) * 1824 (Not Given - Provider: Odalys Rick RN - Reason: Patient/family refused) * 1917 (Given - Provider: Varsha Cobos RN - Comment: left great toe) * 0028 (Given - Provider: Stacy Mendoza LPN - Comment: left great toe) * 0544 (Given - Provider: Varsha Cobos RN - Comment: left great toe) * 1144 (Not Given - Provider: Jody Poole RN - Reason: Patient/family refused - Comment: pt stated need to wait for pain to get better ) * 1749 (Given - Provider: Jody Poole RN - Comment: left great toe) * 0016 (Given - Provider: Meg Escobar RN - Comment: greater toe) * 0604 (Given - Provider: Meg Escobar RN - Comment: lt greater toe) * 1213 (Given - Provider: Hannah Nieto - Comment: left great toe) * 1800 (Due) oxyCODONE (OXYCONTIN) extended release tablet 20 mg 20 mg, Oral, EVERY 12 HOURS SCHEDULED (2 times per day), First dose on Sun07/04/21 at 1045, Until Discontinued, Do not crush or break. * 1026 (Given - Provider: Hannah Nieto) * 2100 (Due) sodium chloride flush 0.9 % injection 5-40 mL 5-40 mL, IntraVENous, EVERY 12 HOURS SCHEDULED (2 times per day), First dose on Sun06/27/21 at 2100, Until Discontinued, For Line Patency: Peripheral IV = 5 mL; Midline or Central Line = 10 mL/lumen.If following IV push medication, administer flush at same rate as the IV push. Flush volume is determined by type of infusion therapy being given. For non-viscous solutions use: Peripheral IV = 5 mL Midline or Central Line = 10 mL/lumen For viscous solutions (i.e. blood components, parenteral nutrition, contrast media, or after obtaining blood sample) use: Peripheral IV = 10 mL Midline or CentralLine = 20 mL/lumen * 0813 (Given - Provider: Odalys Rick RN) * 2121 (Given - Provider: Stacy Mendoza LPN) * 0845 (Given - Provider: Jody Poole RN) * 2205 (Not Given - Provider: Meg Escobar RN - Reason: Other - Comment: pt has 1 iv) * 0706 (Not Given - Provider: Odalys Rick RN - Reason: Other - Comment: duplicate) * 2100 (Due) sodium chloride flush 0.9 % injection 5-40 mL 5-40 mL, IntraVENous, EVERY 12 HOURS SCHEDULED (2 times per day), First dose on Sun06/28/21 at 2100, Until Discontinued, For Line Patency: Peripheral IV = 5 mL; Midline or Central Line = 10 mL/lumen.If following IV push medication, administer flush at same rate as the IV push. Flush volume is determined by type of infusion therapy being given. For non-viscous solutions use: Peripheral IV = 5 mL Midline or Central Line = 10 mL/lumen For viscous solutions (i.e. blood components, parenteral nutrition, contrast media, or after obtaining blood sample) use: Peripheral IV = 10 mL Midline or CentralLine = 20 mL/lumen, Recovery(Cath) * 0712 (Not Given - Provider: Odalys Rick RN - Reason: Other - Comment: duplicate) * 2119 (Given - Provider: Stacy Mendoza LPN) * 0845 (Given - Provider: Jody Poole, GAY) * 215 (Given - Provider: Meg Escobar RN) * 0840 (Given - Provider: Hannah Nieto) * 2100 (Due) Medication Order// 0.9 % sodium chloride infusion IntraVENous, at 5-250 mL/hr, PRN, if patient receiving piggyback infusions and maintenance fluids are not ordered OR KVO fluids to protect IV site / prevent frequent line interruptions/ long duration, Starting on Sun06/27/21 at 1549, For piggyback infusion, administer at same rate as piggyback for a total of 25 mL. Enter 25 mL into dose field and piggyback rate into rate field of order. If piggyback is infusing at a rate less than 100 mL/hr, enter 25 mL into dose field and 100 mL/hr into rate field of order. For KVO fluids, enter rate of 20 mL/hr or less into rate field of order. 0.9 % sodium chloride infusion 25 mL, IntraVENous, at 100 mL/hr, PRN, If patient receiving piggyback infusions without ordered maintenance IV fluids or with frequent/long duration piggyback infusions, Starting on Sun06/28/21 at 1715, Administer at the same rate as the piggyback being infused., Recovery(Cath) acetaminophen (TYLENOL) suppository 650 mg(Linked Group 2) 650 mg, Rectal, EVERY 6 HOURS PRN, Starting on Sun06/27/21 at 1549, Until Discontinued, Pain Mild (1-3), Fever, For temp greater than 100.4 F (38 C), Administer if oral route cannot be used. * 0240 (See Alternative - Provider: Varsha Cobos RN) acetaminophen (TYLENOL) tablet 650 mg(Linked Group 2) 650 mg, Oral, EVERY 6 HOURS PRN, Starting on Sun06/27/21 at 1549, Until Discontinued, Pain Mild (1-3), Fever, For temp greater than 100.4 F (38 C), Maximum dose of acetaminophen is 4000 mg from all sources in 24 hours. * 0240 (Given - Provider: Varsha Cobos RN) albuterol (PROVENTIL) nebulizer solution 2.5 mg 2.5 mg, Nebulization, 4 TIMES DAILY PRN, Starting on Sun06/27/21 at 1549, Until Discontinued, Wheezing, Initiate RT Bronchodilator Protocol: Yes dextrose 5 % solution 100 mL/hr, IntraVENous, PRN, Low blood sugar, Starting on Sun06/28/21 at 0140, Start infusion following administration of dextrose 50% or glucagon. dextrose 50 % IV solution 12.5 g, IntraVENous, PRN, Starting on Sun06/28/21 at 0140, Until Discontinued, Low blood sugar, Blood glucose less than 70 mg/dL and patient NOT ALERT or NPO., If patient does not respond within 5 minutes, repeat dose x1. Start D5W at 100 mL/hour until ordering provider can be reached. Repeat bloodglucose in 15 minutes. If blood glucose is less than 70 mg/dL, repeat treatment and recheck blood glucose in 15 minutes x2. If using Glucostabilizer, dose as instructed per system. glucagon (rDNA) injection 1 mg 1 mg, IntraMUSCular, PRN, Starting on Sun06/28/21 at 0140, Until Discontinued, Low blood sugar, Blood glucose less than 70 mg/dL and patient NOT ALERT or NPO and does not have IV access., After administration, attempt intravenous access and start D5W at 100 mL/hr. Repeat blood glucose in 15 minutesx2 and notify provider. glucose (GLUTOSE) 40 % oral gel 15 g 15 g, Oral, PRN, Starting on Sun06/28/21 at 0140, Until Discontinued, Low blood sugar, If blood glucose less than 50 mg/dL and patient ALERT and TOLERATING PO, give 2 tubes glucose gel. If blood glucose less than 70 mg/dL and patient ALERT and TOLERATING PO, give 1 tube glucose gel. Repeat blood glucose in 15 minutes. If blood glucose is less than 70 mg/dL, repeat treatment and recheck blood gluco se in 15 minutes x2 and notify provider. HYDROmorphone (DILAUDID) injection 0.25 mg (CANCELED) HYDROmorphone (DILAUDID) 1.5mg IV is equivalent to morphine 10mg IV, 0.25 mg, IntraVENous, EVERY 4 HOURS PRN, Starting on Sun07/03/21 at 0745, Until Sun07/04/21 at 0838, Pain Severe (7-10), If oral and IV narcotics ordered, use oral first and only use IV if oral is ineffective or cannot take oral. Do Not give oral and IV within 1 hour of each other unless specifically ordered. * 0849 (Given - Provider: Jody Poole RN) * 1334 (Given - Provider: Jody Poole RN) * 1754 (Given - Provider: Jody Poole, GAY) * 2156 (Given - Provider: Meg Escobar RN) * 0415 (Given - Provider: Meg Beeker, RN) HYDROmorphone (DILAUDID) injection 0.5 mg (CANCELED) HYDROmorphone (DILAUDID) 1.5mg IV is equivalent to morphine 10mg IV, 0.5 mg, IntraVENous, EVERY 3 HOURS PRN, Starting on Sun07/01/21 at 0824, Until 07/03/21 at 0735, Pain Severe (7-10), If oral and IV narcotics ordered, use oral first and only use IV if oral is ineffective or cannot take oral. Do Not give oral and IV within 1 hour of each other unless specifically ordered. * 0014 (Given - Provider: Varsha Cobos RN) * 0813 (Given - Provider: Odalys Rick RN) * 1155 (Given - Provider: Odalys Rick RN) * 1526 (Given - Provider: Odalys Rick RN) * 1844 (Given - Provider: Odalys Rick RN) * 2212 (Given - Provider: Varsha Cobos RN) * 0240 (Given - Provider: Varsha Cobos RN) ondansetron (ZOFRAN) injection 4 mg(Linked Group 3) 4 mg, IntraVENous, EVERY 6 HOURS PRN, Starting on Sun06/27/21 at 1549, Until Discontinued, Nausea, Vomiting, Administer if oral route cannot be used. ondansetron (ZOFRAN-ODT) disintegrating tablet 4 mg(Linked Group 3) 4 mg, Oral, EVERY 8 HOURS PRN, Starting on Sun06/27/21 at 1549, Until Discontinued, Nausea, Vomiting oxyCODONE (ROXICODONE) immediate release tablet 5 mg 5 mg, Oral, EVERY 4 HOURS PRN, Starting on Sun06/28/21 at 1858, Until Discontinued, Pain Severe (7-10) * 0439 (Given - Provider: Varsha Cobos RN) * 0914 (Given - Provider: Odalys Rick RN) * 1331 (Given - Provider: Odalys Rick RN) * 1657 (Given - Provider: Odalys Rick RN) * 2111 (Given - Provider: Stacy Mendoza LPN) * 0544 (Given - Provider: Varsha Cobos RN) * 1144 (Given - Provider: Jody Poole, GAY) * 1542 (Given - Provider: Jody Poole RN) * 2026 (Given - Provider: Meg Escobar RN) * 0156 (Given - Provider: Meg Escobar RN) * 0604 (Given - Provider: Meg Escobar RN) * 1449 (Given - Provider: Odalys Rick RN) polyethylene glycol (GLYCOLAX) packet 17 g 17 g, Oral, DAILY PRN, Starting on Sun06/27/21 at 1549, Until Discontinued, Constipation, First line therapy for constipation * 1531 (Given - Provider: Odalys Rick RN) * 0905 (Given - Provider: Jody Poole RN) sodium chloride flush 0.9 % injection 5-40 mL 5-40 mL, IntraVENous, PRN, Starting on Sun06/27/21 at 1549, Until Discontinued, Line Care, After every IV line use, For Line Patency: Peripheral IV = 5 mL; Midline or Central Line = 10 mL/lumen. If following IV push medication, administer flush at same rate as the IV push. Flush volume is determined by type of infusion therapy being given. For non-viscous solutions use: Peripheral IV = 5 mL Midline or Central Line = 10 mL/lumen For viscous solutions (i.e. blood components, parenteral nutrition,contrast media, or after obtaining blood sample) use: Peripheral IV = 10 mL Midline or Central Line= 20 mL/lumen sodium chloride flush 0.9 % injection 5-40 mL 5-40 mL, IntraVENous, PRN, Starting on Sun06/28/21 at 1715, Until Discontinued, Line Care, For LinePatency: Peripheral IV = 5 mL; Midline or Central Line = 10 mL/lumen. If following IV push medication, administer flush at same rate as the IV push. Flush volume is determined by type of infusion therapy being given. For non-viscous solutions use: Peripheral IV = 5 mL Midline or Central Line = 10 mL /lumen For viscous solutions (i.e. blood components, parenteral nutrition, contrast media, or afterobtaining blood sample) use: Peripheral IV = 10 mL Midline or Central Line = 20 mL/lumen, Recovery(Cath) * 2213 (Given - Provider: Varsha Cobos RN) * 0240 (Given - Provider: Varsha Cobos RN) * 1334 (Given - Provider: Jody Poole RN) * 1754 (Given - Provider: Jody Poole RN) Order Group 1: apixaban (ELIQUIS) tablet 10 mgJump to med 10 mg, Oral, 2 TIMES DAILY, 14 doses, First dose on Sun06/30/21 at 1400, Last dose on Sun07/07/21 at 0600
Indication of Use: DVT/PE Proph (extended)
ANTICOAGULANT
Followed by apixaban (ELIQUIS) tablet 5 mgJump to med 5 mg, Oral, 2 TIMES DAILY, First dose on Sun07/07/21 at 1800, Until Discontinued
Indication of Use: DVT/PE Proph (extended)
ANTICOAGULANT
Group 2: acetaminophen (TYLENOL) tablet 650 mgJump to med 650 mg, Oral, EVERY 6 HOURS PRN, Starting on Sun06/27/21 at 1549, Until Discontinued, Pain Mild (1-3), Fever, For temp greater than 100.4 F (38 C)
Maximum dose of acetaminophen is 4000 mg from all sources in 24 hours.
Or acetaminophen (TYLENOL) suppository 650 mgJump to med 650 mg, Rectal, EVERY 6 HOURS PRN, Starting on Sun06/27/21 at 1549, Until Discontinued, Pain Mild (1-3), Fever, For temp greater than 100.4 F (38 C)
Administer if oral route cannot be used.
Group 3: ondansetron (ZOFRAN-ODT) disintegrating tablet 4 mgJump to med 4 mg, Oral, EVERY 8 HOURS PRN, Starting on Sun06/27/21 at 1549, Until Discontinued, Nausea, Vomiting Or ondansetron (ZOFRAN) injection 4 mgJump to med 4 mg, IntraVENous, EVERY 6 HOURS PRN, Starting on Sun06/27/21 at 1549, Until Discontinued, Nausea, Vomiting
Administer if oral route cannot be used.
Medication Order//08/2023 sodium chloride flush 0.9 % injection 5-40 mL 5-40 mL, IntraVENous, EVERY 12 HOURS SCHEDULED (2 times per day), First dose on Sun02/22/24 at 1115, Until Discontinued, For Line Patency: Peripheral IV = 5 mL; Midline or Central Line = 10 mL/lumen.If following IV push medication, administer flush at same rate as the IV push. Flush volume is determined by type of infusion therapy being given. For non-viscous solutions use: Peripheral IV = 5 mL Midline or Central Line = 10 mL/lumen For viscous solutions (i.e. blood components, parenteral nutrition, contrast media, or after obtaining blood sample) use: Peripheral IV = 10 mL Midline or CentralLine = 20 mL/lumen, Pre-procedure(GI) * 1115 (Due) * 2100 (Due) Medication Order//[id number]/08/2023 0.9 % sodium chloride infusion IntraVENous, at 75 mL/hr, CONTINUOUS, Starting on Sun02/22/24 at 1115, Pre-procedure(GI) * 1115 (Due) Medication Order//[id number]/08/2023 0.9 % sodium chloride infusion IntraVENous, at 100 mL/hr, PRN, If patient receiving piggyback infusions without ordered maintenance IV fluids or with frequent/long duration piggyback infusions, Starting on Sun02/22/24 at 1055, Administer at the same rate as the piggyback being infused., Pre-procedure(GI) sodium chloride flush 0.9 % injection 5-40 mL 5-40 mL, IntraVENous, PRN, Starting on Sun02/22/24 at 1055, Until Discontinued, Line Care, After every IV line use, For Line Patency: Peripheral IV = 5 mL; Midline or Central Line = 10 mL/lumen. If following IV push medication, administer flush at same rate as the IV push. Flush volume is determined by type of infusion therapy being given. For non-viscous solutions use: Peripheral IV = 5 mL Midline or Central Line = 10 mL/lumen For viscous solutions (i.e. blood components, parenteral nutrition,contrast media, or after obtaining blood sample) use: Peripheral IV = 10 mL Midline or Central Line= 20 mL/lumen, Pre-procedure(GI) sterile water for irrigation (CANCELED) PRN, Starting on Sun02/22/24 at 1157, Intra-op * 1225 (Given - Provider: Swapna Randall MD - Comment: Mixed with gi ease dose approximate) Care Teams (unrecognized sec tion and content) Team MemberRelationshipSpecialtyStart DateEnd Date Siri Johnson [address] [place] [address] [facility] - [facility] Team Status: Active Member Role Status Dates Siri Johnson , Primary Care Provider Active Team Status: Inactive Member Role Status Dates Siri Johnson , Primary Care Provider, Referring Provider Active Quinten Lambert ProviderActiveTeam MemberRelationshipSpecialtyStart DateEnd Date Siri Johnson MD [address] [place] [address] [facility] - [facility]28[facility]22Team MemberRelationshipSpecialtyStart DateEnd Date Siri Johnson DO [address] [place] [address] PCP - [facility] Medicine06/21/21Team MemberRelationshipSpecialtyStart DateEnd Date Siri Johnson DO [address] [place] [address] PCP - General03/19/19 Rj Rollins MD [address] [place] [address] [address] [place] [address] Consulting PhysicianCardiology04/13/23 Team Status: Inactive Member Role Status Dates Siri Johnson DO Primary Care Provider Active Start: September 10, 2023 End: September 10, 2023Siobhan Oleary ProviderActiveStart: September 10, 2023 End: September 10, 2023 Team Status: Inactive Member Role Status Dates Gisela Joy APRN Attending Provider Active Start: September 10, 2023 End: September 10, 2023Team MemberRelationshipSpecialtyStart DateEnd Date Siri Johnson DO [address] [place] [address] PCP - GeneralFamily Medicine06/21/21Team MemberRelationshipSpecialtyStart DateEnd Date Siri Johnson DO [address] [place] [address] PCP - GeneralFamily Medicine06/21/21Team MemberRelationshipSpecialtyStart DateEnd Date Siri Johnson DO [address] [place] [address] PCP - GeneralFamily Medicine07/07/21Team MemberRelationshipSpecialtyStart DateEnd Date Siri Johnson DO [address] [place] [address] PCP - GeneralFamily Medicine07/07/21Team MemberRelationshipSpecialtyStart DateEnd Date Siri Johnson DO [address] [place] [address] PCP - GeneralFamily Medicine07/07/21Team MemberRelationshipSpecialtyStart DateEnd Date Siri Johnson DO PCP - GeneralFamily Medicine07/07/21Team MemberRelationshipSpecialtyStart DateEnd Date Siri Johnson DO PCP - GeneralFamily Medicine07/07/21Team MemberRelationshipSpecialtyStart DateEnd Date Siri Johnson DO PCP - GeneralFamily Medicine07/07/21Team MemberRelationshipSpecialtyStart DateEnd Date Siri Johnson DO PCP - GeneralFamily Medicine07/07/21Team MemberRelationshipSpecialtyStart DateEnd Date Siri Johnson DO [address] [place] [address] PCP - General03/19/19 Rj Rollins MD [address] [place] [address] [address] [place] [address] Consulting PhysicianCardiology04/13/23Team MemberRelationshipSpecialtyStart Date End Date Siri Johnson DO PCP - Generalmily Medicine06/21/21Team MemberRelationshipSpecialtyStart DateEnd Date Siri Johnson DO PCP - GeneralFamily Medicine07/07/21 REASON FOR VISIT (unrecogniz ed section and content) [id number] month Follow up for HypertensionSpecialtyDiagnoses / ProceduresReferred By ContactReferred To ContactCardiology Diagnoses Benign essential hypertension Procedures Follow Up In Cardiology Rj Rollins MD [facility] [facility], [address] [address] Phone: tel: fax: Rj Rollins MD [facility] [facility], [address] [place] [address] Phone: tel: fax: Referral IDStatusReasonStart DateExpiration DateVisits RequestedVisits [id number]/6/202411/[id number] month Referral IDStatusReasonStart DateExpiration DateVisits RequestedVisits [id number]/11/20244/[id number] ear painFluid in both ears, and blood in left ear. Pain is going down her neck x 1 monthReason CommentsRefill RequestReasonCommentsOver 1 Hour EEGSpecialtyDiagnoses / ProceduresReferred By ContactReferred To ContactRadiology Diagnoses Personal history of tobacco use Z87.891 (ICD-10-CM) - Personal history of tobacco use Procedures CT Lung Screen (Initial/Annual/Baseline) CHG COMPUTED TOMOGRAPHY THORAX LW DOSE LNG CA SCR C- [id number] - CHG COMPUTED TOMOGRAPHY THORAX LW DOSE LNG CA SCR C- Siri Johnson, DO [address] [place] [address] Referral IDStatusReasonStomaha DateExpiration DateVisits RequestedVisits [id number]/20245/[id number] / Procedures Referred By ContactReferred To ContactRadiology Diagnoses Screening mammogram for breast cancer Procedures FIORELLA KELLY DIGITAL SCREEN BILATERAL FIORELLA DIGITAL SCREEN W OR WO CAD BILATERAL Siri Johnson, DO [address] [place] [address] Referral IDStatusReasonAvoca DateExpiration DateVisits RequestedVisits [id number] / Procedures Referred By ContactReferred To Contact Diagnoses Esophageal dysphagia History of reconstructive repair of rectocele GERD (gastroesophageal reflux disease) Esophageal dysphagia [R13.19] History of reconstructive repair of rectocele [Z98.890] GERD (gastroesophageal reflux disease) [K21.9] Procedures NJ ESOPHAGOGASTRODUODENOSCOPY TRANSORAL DIAGNOSTIC [place] EGD TRANSORAL BIOPSY SINGLE/MULTIPLE NJ EGD BALLOON DILATION ESOPHAGUS <30 MM DIAM ESOPHAGOGASTRODUODENOSCOPY Swapna Randall MD [address] [address] [facility] [address] [place] [address] Referral IDStatusReasonStart DateExpiration DateVisits RequestedVisits [id number] DateCommentsMed Refill 4ReasonCommentsMed RefillReasonCommentsFollow-upReasonCommentsMed Change RequestReasonCommentsFollow-upDiscuss ultrasound results Source Comments (unrecognize d section and content) In the event this informatio n is protected by the Federal Confidentiality of Alcohol and Drug Abuse Patient Records regulations: The Federal rules restrict any use of the information to criminally investigate or prosecute any alcohol or drug abuse patient.[facility] CampusIn the event this information is protected by the Federal Confidentiality of Alcohol and Drug Abuse Patient Records regulations: The Federal rules restrict any use of the information to criminally investigate or prosecute any alcohol or drug abuse patient.[facility] CampusIn the event this information is protected by the Federal Confidentiality of Alcohol and Drug Abuse Patient Records regulations: The Federal rules restrict any use of the information to criminally investigate or prosecute any alcohol or drug abuse patient.[facility] Goals (unrecognized section and content) Goals may be documented in a n alternate section FOR RECORDS PERTAINING TO PATIENTS WHO ARE OR HAVE BEEN ENROLLED IN A CHEMICAL DEPENDENCY/SUBSTANCEABUSE PROGRAM, SOME INFORMATION MAY BE OMITTED. This clinical summary was aggregated from multiple sources. Caution should be exercised in using it in the provision of clinical care. This summary normalizes information from multiple sources, and as a consequence, information in this document may materially change the coding, format and clinical context of patient data. In addition, data may be omitted in some cases. CLINICAL DECISIONS SHOULD BE BASED ON THE PRIMARY CLINICAL RECORDS. [facility]. provides no warranty or guarantee of the accuracy or completeness of information in this document.
[2025-02-21] MEDS: ENOXAPARIN SODIUM 40 MG/0.4 ML SYRINGE SUBQ (17:54)
--- NOTE | 2025-02-21 19:39 | PC.NURSE ---
Patient states numbness feels worse in my face and my left hand. With my Left Hand it's from the wrist down the whole hand. My leg is about the same.
[2025-02-22] VITALS (23 sets, daily range): BP systolic 109–143; BP diastolic 65–84; PULSE 63–85; TEMP 36.3–36.9; O2SAT 93–96
[2025-02-22 06:54] LABS: Hematocrit 39.0 % (36.0-48.0); Hemoglobin 13.3 g/dL (12.0-16.0); Immature Granulocytes Abs Auto 0.01 10^3/uL (0.00-0.03); Immature Granulocytes Pct Auto 0.2 % (0.0-0.5); Lymphocytes Absolute Auto 2.2 10^3/uL (1.2-3.8); Mean Corpuscular HGB Conc 34.1 g/dL (29.9-35.2); Mean Corpuscular Hemoglobin 32.6 pg (26.7-34.0); Mean Corpuscular Volume 95.6 fL (81.0-99.0); Platelet Count 264 10^3/uL (150-450); Red Blood Count 4.08 10^6/uL (4.20-5.40); White Blood Count 6.6 10^3/uL (4.0-11.0)
[2025-02-22 07:30] LABS: Alanine Aminotransferase 25 U/L (14-59); Albumin Globulin Ratio 1.0; Albumin Level 2.9 g/dL (3.4-5.0); Alkaline Phosphatase 95 U/L (46-116); Anion Gap 14.1; Aspartate Amino Transferase 16 U/L (15-37); Blood Urea Nitrogen 12.0 mg/dL (7.0-18.0); Calcium 8.5 mg/dL (8.5-10.1); Carbon Dioxide 27.8 mmol/L (21.0-32.0); Chloride 102 mmol/L (98-107); Cholesterol 209 mg/dL (<=200); Estimated GFR (African America >60 (>=60 mL/min/1.73m^2); Estimated GFR (Non-African Ame >60 (>=60 mL/min/1.73m^2); Globulin 2.8 g/dL; Glucose 219 mg/dL (74-106); HDL Cholesterol 52 mg/dL (40-60); Potassium 3.9 mmol/L (3.5-5.1); Sodium 140 mmol/L (136-145); Thyroid Stimulating Hormone 3.030 uIU/mL (0.358-3.740); Total Protein 5.7 g/dL (6.4-8.2); Triglycerides 139 mg/dL (<=150); VLDL CHOLESTEROL 27.8 mg/dL
--- NOTE | 2025-02-22 10:28 | P.HP_ITS ---
HPI H&P: HPI History of Present Illness Chief complaint: Stroke Like Symptom Narrative: Mrs. Mcgowan is a 59-year-old female who came to the emergency room yesterday for further evaluation of left facial, left hand and leg numbing sensation. Patient woke up yesterday morning having the symptoms. Patient reported that her left hand and arm as well as left leg are little bit clumsy. Patient is able to hold objects in the left arm but unable to perform fine motor movement such as preparing food or doing the dishes. Patient also reported that when she walks she feels that the left leg is not cooperating and would need to hold on furniture and bruno. Patient denies any headaches. She denies any slurred speech. She denies any confusion or disorientation orientation. No prior history of stroke no chest pain or palpitation. Opioid HPI Opioid Management Most Recent Pain and Opioid Data: Last Pain Assessment Today, 09:51 Last ORT Total Score 3 02/21/25, 17:41 Last ORT Risk Category Low Risk 02/21/25, 17:41 [facility] Medical History (Updated 02/22/25 @ 10:32 by Aj Garcia MD) Tailbone injury ?S39.92XA - Unspecified injury of lower back, initial encounter (ICD-10) Prolapse of anterior vaginal wall ?N81.10 - Cystocele, unspecified (ICD-10) Hypertension ?I10 - Essential (primary) hypertension (ICD-10) Hypothyroidism ?E03.9 - Hypothyroidism, unspecified (ICD-10) Night terrors, adult ?F51.4 - Sleep terrors [night terrors] (ICD-10) Abnormal femoral arteriography ?R93.89 - Abnormal findings on diagnostic imaging of other specified body structures (ICD-10) Type 1 diabetes ?E10.9 - Type 1 diabetes mellitus without complications (ICD-10) Surgical History (Updated 02/21/25 @ 18:09 by Lona Delacruz) Insulin pump in place ?Z96.41 - Presence of insulin pump (external) (internal) (ICD-10) Femoral-popliteal bypass graft occlusion, left ?T82.898A - Other specified complication of vascular prosthetic devices, implants and grafts, initial encounter (ICD-10) Hx of appendectomy ?Z90.49 - Acquired absence of other specified parts of digestive tract (ICD- 10) H/O: hysterectomy ?Z90.710 - Acquired absence of both cervix and uterus (ICD-10) Family History (Updated 02/21/25 @ 18:11 by Lona Delacruz) Sister Family history of diabetes mellitus Family history of stroke Mother Family history of hypertension Family history of myocardial infarction Social History (Updated 02/21/25 @ 18:12 by Lona Delacruz) Within the past year, how often did you have a drink containing alcohol: monthly or less Smoking status: Former smoker Non-prescribed substance use: denies use Previous occupational history: disabled-retired Highest level of school completed/degree received: Associate degree: occupational, technical, vocational program Are you now , , , , never or living with a partner: Little interest or pleasure in doing things: not at all Feeling down, depressed, or hopeless: not at all Meds Home Medications and Allergies Home Medications ?Medication ?Instructions ?Recorded ?Confirmed ?Type alirocumab 75 mg/mL subcutaneous 75 mg subcut Q14D 09/1002/21/25 History pen injector (Praluent Pen) amlodipine 5 mg-valsartan 160 mg 1 tab PO DAILY 02/21/25 History tablet aspirin 81 mg chewable tablet 1 tab PO DAILY 02/21/25 02/21/25 History cetirizine 10 mg tablet (24Hour 10 mg PO DAILY PRN all ergy symptoms 02/21/25 02/21/25 History Allergy) cholecalciferol (vitamin D3) 50 50 mcg PO DAILY 02/21/25 History mcg (2,000 unit) capsule clopidogrel 75 mg tablet 75 mg PO DAILY 02/21/2509/10 History conjugated estrogens 0.3 mg tablet 0.3 mg PO DAILY 09/1002/21/25 History (Premarin) famotidine 20 mg tablet 20 mg PO Q12H 02/21/2502/22 History insulin lispro 100 unit/mL 1 sliding scale dose contin uous 02/21/25 02/22/25 History subcutaneous solution (Humalog subcutaneous infusion A [facility] U-100 Insulin) levothyroxine 50 mcg tablet 50 mcg PO DAILY 02/21/25 1 04/25/24 History lisdexamfetamine 60 mg capsule 60 mg PO DAILY 02/21/25 02/21/25 History lorazepam 0.5 mg tablet 0.5 mg PO Q12H PRN anxiety 1 04/24/24 02/22/25 History metoprolol tartrate 25 mg tablet 25 mg PO DAILY 02/21/25 History pantoprazole 40 mg tablet,delayed 40 mg PO DAILY 02/2102/21/25 History release blood-glucose sensor (Dexcom G7 02/22/25 02/22/25 His tory Sensor device) blood-glucose,biology intern,cont 02/22/25 02/22/25 History (Dexcom G7 Practice Performance Manager) desvenlafaxine succinate 25 mg 25 mg PO DAILY 02/22/25 02/22/25 History tablet,extended release 24 hr desvenlafaxine succinate 50 mg 50 mg PO DAILY 02/22/25 02/22/25 History tablet,extended release 24 hr insulin pump cart,auto,BT,G6/7 02/22/25 02/22/25 Hist ory (Omnipod 5 G6-G7 Pods (Gen 5) subcutaneous cartridge) ondansetron 4 mg disintegrating 4 mg PO Q12H PRN nause a and 02/22/25 02/22/25 History tablet vomiting rivaroxaban 2.5 mg tablet (Xarelto) 2.5 mg PO DAILY 02/22/25 History Allergies Allergy/AdvReac Type Severity Reaction Status Date / Time Latex, Natural Rubber Allergy Severe Rash Verified 09/03/24 17:44 meperidine (From Demerol) AdvReac Severe Vomiting Verified 09/03/24 17:44 Hnysrei-IJA-QjD Reductase AdvReac Severe Weakness Verified 02/21/25 13:12 Inhibitor Exam Narrative Exam Narrative: [pt is awake and alert. oriented to place, time and person HEENT: [place] conjunctiva and NL buccal mucosa Neck: Supple, no tenderness Endocrine: No Thyromegaly. Vascular: No JVD or carotid bruit. Lymphatic: No cervical lymphadenopathy. Chest: CTA no DTP. Heart RRR, no extra sound or murmur. Abd: Soft, no tenderness, no rebound and no rigidity. Increase abd girth therefore clinically I could not exclude the possibility of intra abd mass or organomegaly. LE: No cyanosis or clubbing, no varices or edema. Neuro: Awake, alert, oriented. Able to provide information. No confusion or disorientation. Normal focus. Normal attention span. Normal speech. Sensory loss to touch involving the left cheek, left forearm, hand and left leg lower craven, ankle and foot. Patient has a definite ataxia and discoordination performing finger?nose testing and dragging the heel down the craven on the left side. []] Constitutional Vital Signs, click to edit/add: Last Vital Signs Temp 97.3 F L 02/22/25 07:51 Pulse 64 02/22/25 10:15 Resp 20 02/22/25 07:51 BP 113/75 02/22/25 07:51 Pulse Ox 63 L 02/22/25 07:53 O2 Del Method Room Air 02/22/25 07:51 Results Labs Labs: Short CBC 02/21/25 02/22/25 Range/Units 13:20 05:45 WBC 7.9 6.6 (4.0-11.0) 10^3/uL Hgb 14.4 13.3 (12.0-16.0) g/dL Hct 42.7 39.0 (36.0-48.0) % Plt Count 305 264 (150-450) 10^3/uL BMP 02/21/25 02/22/25 13:20 05:45 Sodium 138 140 Potassium 4.6 3.9 Chloride 101 102 Carbon Dioxide 30.8 27.8 BUN 11.0 12.0 Creatinine 0.94 0.87 Glucose 158 H 219 H Calcium 9.0 8.5 Liver Function 02/22/25 Range/Units 05:45 Total Bilirubin 0.2 (0.2-1.0) mg/dL AST 16 (15-37) U/L ALT 25 (14-59) U/L Alkaline Phosphatase 95 (46-116) U/L Albumin 2.9 L (3.4-5.0) g/dL Assessment and Plan Assessment and Plan (1) CVA (cerebral vascular accident): Plan Cerebrovascular accident is suspected involving the right hemisphere manifested by left facial, left hand, left leg numbing sensation and discoordination as haseeb cribed above. Other possible etiologies could not be excluded such as acute demyelination, cerebral edema, atypical migraine, atypical seizure, brain occupying lesion and others. Patient is already on aspirin and Plavix. She is supposed to be on Xarelto as well for peripheral vascular disease but admitted that she has not been taking it. CT head is negative for acute intracranial process. CTA of the head and neck are negative for any vascular dissection, thrombus or stenosis. ER physician I discussed her case with stroke team who recommended continuation of the aforementioned medications. I had accepted to admit patient to the medical floor. I resumed her dual antiplatelets as well as Xarelto 2.5 mg daily. I started patient on high dose intensity statin Requested MRI of the brain and echocardiogram. Telemetry monitoring rule out cardiac dysrhythmia or A-fib PT OT, speech evaluation and treatment. Diabetes. Patient has insulin pump. A1c 7.5. Hypertension. When patient came in, her blood pressure was on the high side. Today the blood pressure is on the low side. Resumed her home metoprolol. Holding amlodipine and ARB. My goal for now is to keep systolic blood pressure if possible above 150 and less than 170. Hyperlipidemia Low-fat diet and initiation of high intensity statin. Peripheral vascular disease status post left leg bypass surgery Continue statin, dual antiplatelet therapy and Xarelto 2.5 mg daily Hypothyroidism Continue Synthroid Previous tobacco addiction. Patient quit several years ago. Patient is at risk having lung cancer due to previous smoking history. I would recommend patient to have yearly low-dose radiation CAT scan of the chest to screen for lung cancer to be arranged by her PCP. Chronic, subacute medical conditions not listed above, abnormal labs and imaging, incidental findings seen on labs and or imaging. These would need to be addressed. Could be addressed later on or in the outpatient setting by PCP collaboration with other needed outpatient providers when time and condition are appropriate.
[2025-02-22] MEDS: FAMOTIDINE 20 MG TABLET PO ×2 (11:14→21:26)
[2025-02-22] MEDS: ASPIRIN 81 MG TAB.CHEW PO (11:14)
[2025-02-22] MEDS: CLOPIDOGREL BISULFATE 75 MG TABLET PO (11:14)
[2025-02-23] VITALS (19 sets, daily range): BP systolic 122–153; BP diastolic 75–89; PULSE 58–75; TEMP 36.5–36.8; O2SAT 93–98
--- NOTE | 2025-02-23 04:08 | PC.NURSE ---
Patient states the numbness has decreased to my face and nose. It is subsiding to my left hand, now it's just the pointer finger and thumb, instead of the whole left hand. And it has decreased to my left leg.
[2025-02-23] MEDS: LEVOTHYROXINE SODIUM 25 MCG TABLET 50 MCG PO (05:36)
[2025-02-23] MEDS: ASPIRIN 81 MG TAB.CHEW PO (08:37)
[2025-02-23] MEDS: METOPROLOL TARTRATE 25 MG TABLET PO (08:37)
[2025-02-23] MEDS: FAMOTIDINE 20 MG TABLET PO ×2 (08:38→21:17)
[2025-02-23] MEDS: PANTOPRAZOLE SODIUM 40 MG TABLET.DR PO (08:38)
[2025-02-23] MEDS: DESVENLAFAXINE SUCCINATE 50 MG TAB.ER.24H PO (08:38)
[2025-02-23] MEDS: CLOPIDOGREL BISULFATE 75 MG TABLET PO (08:38)
[2025-02-23] MEDS: RIVAROXABAN 10 MG TABLET 2.5 MG PO ×2 (08:38→21:17)
--- NOTE | 2025-02-23 08:49 | MR_ITS ---
The [address] [address] Patient Name: KHRIS LADD MRN: [facility]:[id number] date: 1965 Sex: F Assigned Patient Location: [place] Current Patient Location: [place] Accession/Order Number: [id number] Exam Date: 02/23/2025 10:25 Report Date: 02/23/2025 11:24 At the request of: WERO ALONZO MD Procedure: MR head/brain wo con EXAMINATION: MRI OF THE BRAIN WITHOUT CONTRAST CLINICAL HISTORY: Acute onset left upper extremity weakness. Hypertension. COMPARISON: CT 02/21/2025 TECHNIQUE: Multiecho, multiplanar imaging of the brain was performed without enhancement. The ventricles are normal in size and position. A few foci of increased T2 and FLAIR signal are visualized within the periventricular and subcortical white matter. There is also a focus of increased signal at the thalamus on the right. There is also restricted diffusion at that site compatible with a recent lacunar infarct. There are no additional areas of abnormal signal intensity or restricted diffusion elsewhere within the supra- or infratentorial brain. There are no extra-axial collections or mass effect. The imaged paranasal sinuses and mastoid air cells are clear. MR/MR head/brain wo con IMPRESSION: MINOR SMALL VESSEL ISCHEMIC CHANGE. RECENT RIGHT THALAMIC LACUNAR INFARCT. Impression dictated by: Sarah Daniel M.D. 02/23/2025 11:24 AM Dictation Location: [place] [address] Electronically authenticated by: [id number] Y Date: 02/23/2025 11:24
--- NOTE | 2025-02-23 09:10 | CM.NOTE ---
Rounds made with Dr. Stephenson, discussed plan of care with pt. Pt awaiting MRI and teleneuro will consult with pt. Pt verbalizes understanding and denies questions.
--- NOTE | 2025-02-23 10:42 | PM.IMPN1 ---
Progress Note: A&P Assessment and Plan (1) CVA (cerebral vascular accident): Plan Cerebrovascular accident is suspected involving the right hemisphere manifested by left facial, left hand, left leg numbing sensation and discoordination as described above. Other possible etiologies could not be excluded such as acute demyelination, cerebral edema, atypical migraine, atypical seizure, brain occupying lesion and others. Patient is already on aspirin and Plavix. She is supposed to be on Xarelto as well for peripheral vascular disease but admitted that she has not been taking it. CT head is negative for acute intracranial process. CTA of the head and neck are negative for any vascular dissection, thrombus or stenosis. ER physician I discussed her case with stroke team who recommended continuation of the aforementioned medications. I had accepted to admit patient to the medical floor. I resumed her dual antiplatelets as well as Xarelto 2.5 mg daily. I started patient on high dose intensity statin Requested MRI of the brain and echocardiogram. Telemetry monitoring rule out cardiac dysrhythmia or A-fib PT OT, speech evaluation and treatment. Diabetes. Patient has insulin pump. A1c 7.5. Hypertension. When patient came in, her blood pressure was on the high side. Today the blood pressure is on the low side. Resumed her home metoprolol. Holding amlodipine and ARB. My goal for now is to keep systolic blood pressure if possible above 150 and less than 170. Hyperlipidemia Low-fat diet and initiation of high intensity statin. Peripheral vascular disease status post left leg bypass surgery Continue statin, dual antiplatelet therapy and Xarelto 2.5 mg daily Hypothyroidism Continue Synthroid Previous tobacco addiction. Patient quit several years ago. Patient is at risk having lung cancer due to previous smoking history. I would recommend patient to have yearly low-dose radiation CAT scan of the chest to screen for lung cancer to be arranged by her PCP. 02/23/2025 in regards to the patient's documentation of C1 cervical fracture in her note, patient denies to me any trauma to her neck and does not have any step-off sign or tenderness in her cervical spine. Patient does not have any issues with her urination or defecation. Given her neurologic deficits, MRI brain without contrast ordered as well as echocardiogram. Will follow-up with the neurology team at [facility] today. She continues to be on aspirin 81 mg p.o. daily as well as Plavix 75 mg p.o. daily and atorvastatin 80 mg nightly. A1c came back at 7.7, blood pressure is nicely controlled. Continue metoprolol 25 mg p.o. daily. I discussed the plan with the patient in details. Answered all her questions. Also discussed plan with nursing team and physical therapist on the case. Internal Medicine - PN: Subj Subjective Interval history: Pt seen and examined at bedside. No events overnight. Still with left hand weakness not able to make a strong clinical cytopathologist compared to the right hand. Otherwise complains of numbness in her left upper and lower extremities as well which has been there since Sunday morning. No fever no chills no nausea no vomiting. Blood pressure is under good control Exam Narrative Exam Narrative: [pt is awake and alert. oriented to place, time and person HEENT: [place] conjunctiva and NL buccal mucosa Neck: Supple, no tenderness Endocrine: No Thyromegaly. Vascular: No JVD or carotid bruit. Lymphatic: No cervical lymphadenopathy. Chest: CTA no DTP. Heart RRR, no extra sound or murmur. Abd: Soft, no tenderness, no rebound and no rigidity. Increase abd girth therefore clinically I could not exclude the possibility of intra abd mass or organomegaly. LE: No cyanosis or clubbing, no varices or edema. Neuro: Patient is alert oriented x 3, she does have sensory loss on her left side, as well as weak left hand clinical cytopathologist. Does have left sided weakness as well. Cranials 2-12 are intact. He is following commands Constitutional Vital Signs, click to edit/add: Last Vital Signs Temp 97.7 F 02/23/25 07:40 Pulse 64 02/23/25 10:00 Resp 16 02/23/25 07:40 BP 153/80 H 02/23/25 07:40 Pulse Ox 95 02/23/25 07:40 O2 Del Method Room Air 02/23/25 07:40
[2025-02-23 11:33] LABS: Hematocrit 41.3 % (36.0-48.0); Hemoglobin 14.2 g/dL (12.0-16.0); Immature Granulocytes Abs Auto 0.02 10^3/uL (0.00-0.03); Immature Granulocytes Pct Auto 0.3 % (0.0-0.5); Lymphocytes Absolute Auto 1.4 10^3/uL (1.2-3.8); Mean Corpuscular HGB Conc 34.4 g/dL (29.9-35.2); Mean Corpuscular Hemoglobin 33.3 pg (26.7-34.0); Mean Corpuscular Volume 96.7 fL (81.0-99.0); Platelet Count 269 10^3/uL (150-450); Red Blood Count 4.27 10^6/uL (4.20-5.40); White Blood Count 6.7 10^3/uL (4.0-11.0)
[2025-02-23 11:57] LABS: Alanine Aminotransferase 26 U/L (14-59); Albumin Globulin Ratio 1.0; Albumin Level 3.1 g/dL (3.4-5.0); Alkaline Phosphatase 93 U/L (46-116); Anion Gap 9.9; Aspartate Amino Transferase 18 U/L (15-37); Blood Urea Nitrogen 16.0 mg/dL (7.0-18.0); Calcium 8.1 mg/dL (8.5-10.1); Carbon Dioxide 31.3 mmol/L (21.0-32.0); Chloride 100 mmol/L (98-107); Estimated GFR (African America >60 (>=60 mL/min/1.73m^2); Estimated GFR (Non-African Ame 54 (>=60 mL/min/1.73m^2); Globulin 3.0 g/dL; Glucose 277 mg/dL (74-106); Potassium 4.2 mmol/L (3.5-5.1); Sodium 137 mmol/L (136-145); Total Protein 6.1 g/dL (6.4-8.2)
--- NOTE | 2025-02-23 14:25 | CM.NOTE ---
Important Message From Medicare discussed with pt, pt verbalizes understanding and signs paper. Original given to pt and copy placed on pt's chart.
--- NOTE | 2025-02-23 15:42 | SWNOTE1 ---
SW reviewed PT and ST notes. ST did not have any follow up recommended. PT did recommend outpt therapy. SW stopped in and spoke with pt about outpt therapy. Pt voiced she has a hard time finding a ride and getting to and from things. Pt did ask if we could provide her with a list of exercises for her to do at home. SW will call PT/OT and see if they have a packet/list of exercises for pt. SW called therapy room and left a message. SW to follow up tomorrow.
--- NOTE | 2025-02-23 16:24 | CA_ITS ---
Patient Name: KHRIS LADD MR#: [id number] : 1965 Exam Date: 02/23/2025 Ordering Doctor: PATRICK FAUST ECHOCARDIOGRAM REPORT PROCEDURE: CA ECHO DOPPLER COMPLETE INDICATIONS: TIA COMPARISON: None. DESCRIPTION: COMPLETE ECHOCARDIOGRAM Real-time transthoracic echocardiography with 2D, M-mode, spectral and color flow Doppler performed. QUALITY: Technical quality was good. LEFT VENTRICLE: Normal chamber size. Normal left ventricular wall thickness. Global left ventricular systolic function is normal. No wall motion abnormalities. Calculated left ventricular ejection fraction is 69%. LV EF: Normal left ventricular ejection fraction, (>55%). DIASTOLIC: Normal diastolic function. ATRIAL SEPTUM: Visually appears intact LEFT ATRIUM: Normal chamber size. RIGHT ATRIUM: Normal chamber size. RIGHT VENTRICLE: Normal chamber size. Normal right ventricular systolic function. TRICUSPID VALVE: Normal mobility and thickness. No stenosis with trivial regurgitation. No evidence of pulmonary hypertension.The RVSP measures 19mmHg. MITRAL VALVE: Normal mobility and thickness. No evidence of mitral valve stenosis. There is no mitral annular calcification. Mild mitral regurgitation. AORTIC VALVE: Normal trileaflet appearance. No visible sclerosis. Normal leaflet mobility. No evidence of aortic valve stenosis. No aortic regurgitation. AORTIC ROOT: Normal diameter and appearance. The aortic root measures 3.1cm PULMONIC VALVE: Normal thickness and mobility. No stenosis. Trivial regurgitation. PERICARDIUM: No evidence of pericardial effusion. IVC: Collapes with inspirations. The IVC is normal in size measuring 1.6cm. PLEURA: CONCLUSION: Normal left ventricle size, wall thickness, and systolic function without wall motion abnormalities, EF 69% Normal left ventricular diastolic function Normal right ventricle size and systolic function Normal right-sided pressure, RVSP 19 mmHg Mild mitral regurgitation No trans-atrial shunt by color study Adult Echocardiography Procedure Report Left Ventricle LVEDD (3.7 - 5.6 cm): 3.81 cm LVESD (2.2 - 4.0 cm): 2.42 cm LVIVS thickness (0.6 - 1.2 cm): 0.91 cm LVPW thickness (0.5 - 1.0 cm): 0.87 cm e': 0.11 m/s E - e': 6.85 LVOT Max Gradient: 3.08 mm[Hg] LVOT Area (cm2): 0.88 m/s Peak Velocity (LVOT): 0.88 m/s Mean Velocity (LVOT): 0.55 m/s LVOT Diameter 1.81 cm Left Ventricular Ejection Fraction: 69.29 % Left Atrium LA Volume Index (2D A2C): 21.12 ml/m2 Left Atrium Systolic Dimension: 2.72 cm Mitral Valve MV E to A Ratio: 1.05 MV Max Gradient: MV Mean Gradient: Mitral Valve A-Wave Peak Velocity: 0.73 m/s Mitral Valve E-Wave Peak Velocity: 0.77 m/s Cardiovascular Orifice Area: Right Ventricle RV Internal Diastolic Dimension: 2.59 cm Aorta AO Root Diam: 3.05 cm Ascending Ao Diam: Aortic Valve AoV Area (Peak Lester): 2.14 cm2, 2.14 cm2 AoV Area (VTI): 2.08 cm2, 2.08 cm2 Deceleration [place]: Pressure Half-Time: Peak Velocity(Antegrade Flow): 1.06 m/s Peak Gradient(Antegrade Flow): 4.48 mm[Hg] Mean Velocity(Antegrade Flow): 0.71 m/s Mean Gradient(Antegrade Flow): 2.32 mm[Hg] Velocity Time Integral: 24.67 cm Tricuspid Valve Peak Velocity (Regurgitant Flow): 2.02 m/s Peak Velocity: Pulmonic Valve Mean Gradient: 0.87 mm[Hg], 1.42 mm[Hg] Mean Velocity: 0.43 m/s, 0.54 m/s Peak Velocity: 0.71 m/s Peak Gradient: 1.52 mm[Hg], 2.59 mm[Hg] Right Atrium Right Atrium Systolic Pressure: 17.99 ml, 17.99 ml Dictated by: Isis Coleman MD on 02/23/2025 at 17:12 Approved by: Isis Coleman MD on 02/23/2025 at 17:18
[2025-02-24] VITALS (10 sets, daily range): BP systolic 108–112; BP diastolic 62–73; PULSE 60–73; TEMP 36.5–36.8; O2SAT 94–97
[2025-02-24] MEDS: LEVOTHYROXINE SODIUM 25 MCG TABLET 50 MCG PO (05:39)
[2025-02-24] MEDS: PANTOPRAZOLE SODIUM 40 MG TABLET.DR PO (08:24)
[2025-02-24] MEDS: CLOPIDOGREL BISULFATE 75 MG TABLET PO (08:24)
[2025-02-24] MEDS: RIVAROXABAN 10 MG TABLET 2.5 MG PO (08:24)
[2025-02-24] MEDS: METOPROLOL TARTRATE 25 MG TABLET PO (08:24)
[2025-02-24] MEDS: FAMOTIDINE 20 MG TABLET PO (08:24)
[2025-02-24] MEDS: DESVENLAFAXINE SUCCINATE 50 MG TAB.ER.24H PO (08:24)
[2025-02-24] MEDS: ASPIRIN 81 MG TAB.CHEW PO (08:26)
--- NOTE | 2025-02-24 09:20 | CM.NOTE ---
Rounds made with Dr. Stephenson, pt will discharge to home today. Pt will f/u with neurology, PCP, cardiology and vascular. Pt will also have order completed for outpatient PT.
--- NOTE | 2025-02-24 10:10 | CM.NOTE ---
CM completed outpatient PT requisition for pt and Dr. Stephenson signed order. Pt given requisition for outpatient PT. Pt verbalizes understanding importance of f/u appointments and outpatient PT.
--- NOTE | 2025-02-24 11:04 | PM.DS1 ---
DS: Providers Provider Date of admission: 02/21/25 17:30 Primary care physician: SIRI JOHNSON DO Consults: 02/21/25 16:20 Consult to Telestroke Routine Reason for consultation: Left side numbness 02/21/25 16:24 Consult to TeleNeurology Routine Reason for consultation: TIA Occupational Therapy Eval and Treat Routine Reason for consultation: TIA Physical Therapy Eval and Treat Routine Reason for consultation: TIA 02/21/25 16:30 Speech Therapy Eval and Treat Routine Reason for consultation: TIA 02/23/25 13:34 Consult to Cardiology Routine Reason for consultation: CVA Anticipated date of discharge: 02/24/25 DS: Diagnosis Discharge Diagnosis (1) CVA (cerebral vascular accident): Plan As above DS: Summary Hospital Course Hospital Course: Mrs. Mcgowan is a 59-year-old female who came to the emergency room yesterday for further evaluation of left facial, left hand and leg numbing sensation. Patient woke up yesterday morning having the symptoms. Patient reported that her left hand and arm as well as left leg are little bit clumsy. Patient is able to hold objects in the left arm but unable to perform fine motor movement such as preparing food or doing the dishes. Patient also reported that when she walks she feels that the left leg is not cooperating and would need to hold on furniture and bruno. Patient denies any headaches. She denies any slurred speech. She denies any confusion or disorientation orientation. No prior history of stroke no chest pain or palpitation (1) CVA (cerebral vascular accident): Plan Cerebrovascular accident is suspected involving the right hemisphere manifested by left facial, left hand, left leg numbing sensation and discoordination as described above. Other possible etiologies could not be excluded such as acute demyelination, cerebral edema, atypical migraine, atypical seizure, brain occupying lesion and others. Patient is already on aspirin and Plavix. She is supposed to be on Xarelto as well for peripheral vascular disease but admitted that she has not been taking it. CT head is negative for acute intracranial process. CTA of the head and neck are negative for any vascular dissection, thrombus or stenosis. ER physician I discussed her case with stroke team who recommended continuation of the aforementioned medications. I had accepted to admit patient to the medical floor. I resumed her dual antiplatelets as well as Xarelto 2.5 mg daily. I started patient on high dose intensity statin Requested MRI of the brain and echocardiogram. Telemetry monitoring rule out cardiac dysrhythmia or A-fib PT OT, speech evaluation and treatment. Diabetes. Patient has insulin pump. A1c 7.5. Hypertension. When patient came in, her blood pressure was on the high side. Today the blood pressure is on the low side. Resumed her home metoprolol. Holding amlodipine and ARB. My goal for now is to keep systolic blood pressure if possible above 150 and less than 170. Hyperlipidemia Low-fat diet and initiation of high intensity statin. Peripheral vascular disease status post left leg bypass surgery Continue statin, dual antiplatelet therapy and Xarelto 2.5 mg daily Hypothyroidism Continue Synthroid Previous tobacco addiction. Patient quit several years ago. Patient is at risk having lung cancer due to previous smoking history. I would recommend patient to have yearly low-dose radiation CAT scan of the chest to screen for lung cancer to be arranged by her PCP. 02/23/2025 in regards to the patient's documentation of C1 cervical fracture in her note, patient denies to me any trauma to her neck and does not have any step-off sign or tenderness in her cervical spine. Patient does not have any issues with her urination or defecation. Given her neurologic deficits, MRI brain without contrast ordered as well as echocardiogram. Will follow-up with the neurology team at [facility] today. She continues to be on aspirin 81 mg p.o. daily as well as Plavix 75 mg p.o. daily and atorvastatin 80 mg nightly. A1c came back at 7.7, blood pressure is nicely controlled. Continue metoprolol 25 mg p.o. daily. I discussed the plan with the patient in details. Answered all her questions. Also discussed plan with nursing team and physical therapist on the case. 02/24/2025 MRI brain without contrast showed minor small vessel ischemic change along with recent right thalamic lacunar infarct. Echo showed normal left ventricular size, wall thickness, systolic function without wall motion abnormalities. EF 69%. Normal left ventricular diastolic function. Normal right ventricular size and systolic function. Normal right-sided pressure, RVSP of 19 mmHg. No mitral regurg. No trans atrial shunt by color study. I discussed the case with neurology and cardiology. As per our pharmacovigilance specialist, Dr. Coleman, given the patient's clinical findings there is no indication for cardioembolic workup. Also spoke to neurology which agreed on that as well as recommended the patient be discharged on aspirin, Plavix, and Xarelto for now for another 3 weeks and then she will have to follow-up with neurology under vascular surgery in regards on what to continue with her dual antiplatelet management for critical limb ischemia. Discussed all that with the patient at bedside. Also discussed with her the need for Zetia on discharge and she will call her PCP to make changes to her dyslipidemia injection. She understands agrees with the [facility] management. PT/OT saw the patient, recommended outpatient therapy however patient denied those needs. Status at Discharge Overall status at discharge: patient is progressing back to baseline Time Spent with Patient Time attestation: Total time spent providing and/or coordinating discharge services: Time spent: greater than 30 minutes Exam Narrative Exam Narrative: [pt is awake and alert. oriented to place, time and person HEENT: [place] conjunctiva and NL buccal mucosa Neck: Supple, no tenderness Endocrine: No Thyromegaly. Vascular: No JVD or carotid bruit. Lymphatic: No cervical lymphadenopathy. Chest: CTA no DTP. Heart RRR, no extra sound or murmur. Abd: Soft, no tenderness, no rebound and no rigidity. Increase abd girth therefore clinically I could not exclude the possibility of intra abd mass or organomegaly. LE: No cyanosis or clubbing, no varices or edema. 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 Does have left sided weakness as well with ataxia on gait exam. Cranials 2-12 are intact. She is following commands Constitutional Vital Signs, click to edit/add: Last Vital Signs Temp 97.7 F 02/24/25 07:31 Pulse 66 02/24/25 09:54 Resp 16 02/24/25 07:31 BP 108/62 02/24/25 07:31 Pulse Ox 97 02/24/25 07:31 O2 Del Method Room Air 02/24/25 07:31 DS: Data Data Completed and Pending Labs on day of discharge: Labs from last 24 hours 02/23/25 02/23/25 02/23/25 14:13 11:20 11:00 WBC 6.7 RBC 4.27 Hgb 14.2 Hct 41.3 MCV 96.7 MCH 33.3 MCHC 34.4 RDW 12.5 Plt Count 269 MPV 10.0 Neut % (Auto) 69.6 Lymph % (Auto) 20.9 [place] % (Auto) 5.1 Eos % (Auto) 3.5 Baso % (Auto) 0.6 Neut # (Auto) 4.6 Lymph # (Auto) 1.4 [place] # (Auto) 0.3 Eos # (Auto) 0.2 Baso # (Auto) 0.0 Abs Immat Gran (auto) 0.02 Imm/Tot Granulo (auto) 0.3 Sodium 137 Potassium 4.2 Chloride 100 Carbon Dioxide 31.3 Anion Gap 9.9 BUN 16.0 Creatinine 1.05 H Est GFR ( Amer) >60 Est GFR (Non-Af Amer) 54 L BUN/Creatinine Ratio 15.2 Glucose 277 H Calcium 8.1 L Total Bilirubin 0.2 AST 18 ALT 26 Alkaline Phosphatase 93 Total Protein 6.1 L Albumin 3.1 L Globulin 3.0 Albumin/Globulin Ratio 1.0 POC Glucose 316 H 321 H Discharge Plan Discharge Disposition: Home, Self-Care Condition: Fair Discharge Medications: New ezetimibe 10 mg Tablet 10 mg PO QHS 30 Days Qty: 30 0RF Continued amlodipine-valsartan 5-160 mg tablet 1 tab PO DAILY Praluent Pen 75 mg/mL pen injector 75 mg SUBCUT Q14D aspirin 81 mg tablet,chewable 1 tab PO DAILY clopidogrel 75 mg tablet 75 mg PO DAILY conjugated estrogens [Premarin] 0.3 mg tablet 0.3 mg PO DAILY famotidine 20 mg tablet 20 mg PO Q12H insulin lispro [Humalog U-100 Insulin] 100 unit/mL solution 1 sliding scale dose continuous subcutaneous infusion ACHS Rx Instructions: USE WITH INSULIN PUMP. MAX 37 UNITS PER DAY lisdexamfetamine 60 mg capsule 60 mg PO DAILY metoprolol tartrate 25 mg tablet 25 mg PO DAILY pantoprazole 40 mg tablet,delayed release (DR/EC) 40 mg PO DAILY lorazepam 0.5 mg tablet 0.5 mg PO Q12H PRN (Reason: anxiety) levothyroxine 50 mcg tablet 50 mcg PO DAILY cholecalciferol (vitamin D3) 50 mcg (2,000 unit) capsule 50 mcg PO DAILY cetirizine [24Hour Allergy] 10 mg tablet 10 mg PO DAILY PRN (Reason: allergy symptoms) rivaroxaban [Xarelto] 2.5 mg tablet 2.5 mg PO BID desvenlafaxine succinate 50 mg tablet extended release 24 hr 50 mg PO DAILY desvenlafaxine succinate 25 mg tablet extended release 24 hr 25 mg PO DAILY Rx Instructions: TAKES WITH 50 MG = 75 MG PER PT ondansetron 4 mg tablet,disintegrating 4 mg PO Q12H PRN (Reason: nausea and vomiting) No Action (DME) Omnipod 5 G6-G7 Pods (Gen 5) Cartridge SUBCUT (DME) Dexcom G7 Sensor Device MISCELLANEOUS (DME) Dexcom G7 Utility Plant Operative Misc MISCELLANEOUS Print Language: Slovenian Forms: Portal Instructions Follow Up Appointments: Dr. Pizano (vascular) - Leo. 03/24 @ 11:30am [facility], [address] [place] [address] , [place] [address], [address]
--- NOTE | 2025-02-24 11:19 | PT.DAILY ---
Physical Therapy Daily Note PT Daily Note/Assess Start: 02/23/25 10:01 Freq: Status: Active Protocol: Document 02/24/25 11:00 SHLOMO (Rec: 02/24/25 11:18 SHLOMO [id number]) Physical Therapy Daily Note/Assessment Time In/Time Out Time In 11:00 Time Out 11:10 Subjective Subjective Patient reports DC home, wishes to have written handout of HEP as does not want to do OP PT at this time. Therapeutic Exercise Time Therapeutic Exercise 10 Minutes (minutes) Therapeutic Exercise 1 Units Therapeutic Exercise Treatment Therapeutic Exercise Issued written handout of basic standing exercises as Treatment follows: Marches, Hip flexion, Hip abduction, Hip extension, HS curls, Calf raises and mini squats. Therapeutic Activity Treatment Bed Mobility Ability Independent Chair Transfer Independent Ability Therapeutic Activity Ind. with gait Comments Total Physical Therapy Time Total Therapy 10 Minutes Total Physical 1 Therapy Units Summary Daily Note Summary Issued and reviewed written HEP with standing sink exercises. Patient completes program and denies questions after review.
--- NOTE | 2025-02-25 14:39 | CM.DCFOLLOWU ---
Person spoke with:patient How are you feeling? doing alright, still weak, some numbness. Advised if symptoms persist to return to ED How is your pain? no pain Did you understand your discharge instructions? yes Do you have any questions about your discharge instructions? no Were you given any prescriptions at discharge?yes Were you able to get your prescriptions filled?yes Do you understand how to take your medications as ordered?yes Do you have any questions about your follow up appointment and do you plan to keep your follow up appointment? no questions, reviewed follow up apts with patient. She is going to call her PCP and the neurologist today to schedule follow ups Is there anything else that you would like to discuss?no Questions/Comments/Concerns/Other: none
== END 2025-02-24 13:56 | disposition home or self-care (01) | DRG 65 ==
LOC: ER 16:35 → MS 17:40
PROVIDERS: Admitting Provider Internal Medicine; Emergency Provider Emergency Medicine; PCP Family Medicine; Visit Provider Student in an Organized Health Care Education/Training Program
DX: I63.9 Cerebral infarction, unspecified (principal); G81.94 Hemiplegia, unspecified affecting left nondominant side; I10 Essential (primary) hypertension; R29.702 NIHSS score 2; Z87.891 Personal history of nicotine dependence; E10.51 Type 1 diabetes mellitus with diabetic peripheral angiopathy without gangrene; Z96.41 Presence of insulin pump (external) (internal); Z79.4 Long term (current) use of insulin; T45.516A Underdosing of anticoagulants, initial encounter; Z91.148 Patient's other noncompliance with medication regimen for other reason; Z79.02 Long term (current) use of antithrombotics/antiplatelets; Z79.82 Long term (current) use of aspirin; Z79.01 Long term (current) use of anticoagulants; E03.9 Hypothyroidism, unspecified; E78.5 Hyperlipidemia, unspecified; Z79.890 Hormone replacement therapy; Z90.49 Acquired absence of other specified parts of digestive tract; Z90.710 Acquired absence of both cervix and uterus; Z86.718 Personal history of other venous thrombosis and embolism
CPT/HCPCS: 36415; 70450; 70496; 70498; 70551; 71045; 80048; 80053; 80061; 82948; 83036; 83880; 84100; 84443; 85025; 85610; 92523; 93005; 93306; 96372; 97110; 97161; 97165; 99285; G0378; J1650; Q9967